=== PATIENT | female | born 1955 | race Caucasian/White ===

== ENCOUNTER 2023-06-30 05:13 | Inpatient (IN) | payer OTHER, SELFPAY ==
[2023-06-24 08:58] VITALS: BMI 44.1
[2023-06-24 09:59] LABS: Urine Albumin 1+ (Neg - Trace); Urine Bilirubin Negative (Negative); Urine Character Clear (Clear); Urine Color Yellow; Urine Glucose Negative (Negative); Urine Ketone Trace (Negative); Urine Leukocyte 2+ (Negative); Urine Nitrite Positive (Negative); Urine Occult Blood 1+ (Negative); Urine Specific Gravity 1.015 (<1.030); Urine Urobilinogen Negative (Neg - 1+)
[2023-06-24 10:00] LABS: % Basophils 0.9 % (0-2); % Eosinophils 2.5 % (0-6); % Immature Granulocytes 0.2 % (0-0.5); % Monocytes 12.9 % (1.7-9.3); % Neutrophils 57.5 % (42.2-75.2); Absolute Basophils 0.1 10^3/uL (0-0.2); Absolute Eosinophils 0.1 10^3/uL (0-0.7); Absolute Lymphocytes 1.4 10^3/uL (1.2-3.4); Absolute Monocytes 0.7 10^3/uL (0.1-0.6); Hematocrit 43.5 % (37.0-47.0); Mean Corp Hgb Conc. 34.5 g/dL (33.0-37.0); Mean Corpuscular Hgb 30.5 pg (27.0-31.0); Mean Corpuscular Volume 88.6 fL (81.0-99.0); Mean Platelet Volume 9.4 fL (7.4-10.4); Nucleated Red Blood Cells % 0 %; Platelet Count 203 10^3/uL (130-400); Red Blood Cell Count 4.91 10^6/uL (4.20-5.40); Red Cell Dist. Width 14.2 % (11.5-14.5); White Blood Cell Count 5.3 10^3/uL (4.8-10.8)
[2023-06-24 10:08] LABS: Urine Red Blood Cell 0-2 /HPF (0-2); Urine Squamous Cell >30 /LPF (Few); Urine White Cell >100 /HPF (0-5)
[2023-06-24 10:09] LABS: Urine Bacteria Moderate (Negative)
[2023-06-24 10:14] LABS: INR 1.28
[2023-06-24 10:16] LABS: APTT 52.9 Sec (23.4-35.0)
[2023-06-24 10:36] LABS: ALT (SGPT) 15 U/L (0-35); AST (SGOT) 51 U/L (14-36); Albumin 4.7 g/dl (3.5-5.0); Alkaline Phosphatase 104 U/L (38-126); Blood Urea Nitrogen 30 mg/dl (7-17); Calcium 9.8 mg/dl (8.4-10.2); Carbon Dioxide 27 mmol/L (22-30); Chloride 99 mmol/L (98-107); Direct Bilirubin 0.4 mg/dl (0.0-0.4); Estimated Creatinine Clearance 50 ml/min; Glucose 154 mg/dl (70-99); Potassium 3.5 mmol/L (3.5-5.1); Sodium 138 mmol/L (135-145); Total Bilirubin 0.8 mg/dl (0.2-1.3); Total Protein 7.6 g/dl (6.3-8.2)
--- NOTE | 2023-06-24 11:50 | CM ---
Met with Ms. Rojas in 's. She states prior to admission she resides alone in a third floor apartment with an elevator. She has a one level set-up once in the apartment. She stares prior to admission she ambulates independently in the
apartment and uses a walker in the community. She states she has hospital bed, shower bench and CPAP Machine. She states she has been in [facility] for Rehab several times, the last one this May. She has also been at [facility]. in
the past. She states if she needs SNF/Rehab. she would like to go to [facility]. She will need pre-cert with her insurance. She states she has a prescription plan and [employer] and uses [facility]. The discharge plan is to go to SNF/Rehab.
when medically stable.
We reviewed the pre-op and post-op routines. We reviewed the shower instructions. She has the soap and the written instructions. She already has the Cardiothoracic Surgery Educational Booklet. We also reviewed restrictions including sternal
precautions and driving restrictions. We also discussed a home visit by the Cardiothoracic Transitional Care Nurse. The plan is for Mitral Valve Repair on Friday June 30, 2023.
[2023-06-24 13:55] LABS: Glycohemoglobin (HgbA1c) 6.4 % (4.0-5.6)
[2023-06-30] VITALS (15 sets, daily range): BP systolic 84–157; BP diastolic 60–93; BMI 43.9
--- NOTE | 2023-06-30 00:36 | W.PN.CT ---
Assessment / Plan
-
Assessment:
-S/P Chordal sparing mitral valve replacement [27 mm bioprosthetic]/Tricuspid valve repair [28 mm band annuloplasty]/Biatrial MAZE using cryo ablation/Left atrial appendage exclusion [35 mm clip]/Intraoperative interrogation and setting of
pre-existing PPM, by Dr. Claros, 06/30/23, pod#1
-Severe mitral valve insufficiency [mixed pathology combination of type I�atrial functional, and sclerotic anterior posterior leaflets]
-Moderate TR
-Mild AI
-A-fib with sick sinus syndrome S/P Cardioversion (02/2017), PPM placement (06/2016)
-LVEF 50-55% per intraop KARL
-Recent diastolic CHF, 04/2023
-Recent PNA, 04/2023
-MRSA+ (nasal swab on 06/24/23)
-Recent E. Coli UTI (06/24/23, treated with Macrobid)
-LIZBETH (uses CPAP)
-Orthopnea
-Hyperlipidemia
-T2DM (A1C 6.4)
-Class 3 obesity (BMI 44)
-GERD
-Hx DVT/PE (2012)
-Gout
-Lymphedema
-Venous stasis
-Ambulatory dysfunction (uses walker)
-Hx endometrial ca S/P CHELITA with XRT
-S/P D&C
-S/P Carpal tunnel
-S/P B/L Cataracts
-S/P Herniorrhaphy
-S/P Tonsillectomy
-Acute postop blood loss/Anemia (stable without blood transfusion)
-Acute postop thrombocytopenia (stable without active bleed)
-Acute postop atelectasis/pleural effusion
-Acute postop hypovolemia with subsequent hypervolemia
Plan:
-No major issues overnight. Hemodynamically and neurologically intact
-Successfully extubated yesterday 06/30/23 @ 1845
-On dobutamine @ 3 mcg/kg/min, and on insulin gtt per protocol
-Last CI , 24hrs u/o mL
-Cont. current meds (ASA, Lipitor, Dobutamine, Amiodarone and Lopressor is currently on hold while on dobutamine; avoid Lasix today)
-Will likely start heparin gtt today given hx of DVT/PE, Class 3 obesity, A-fib/MAZE. Will resume Pradaxa and d/c heparin gtt likely on POD#4
-Monitor chest tube drainage: 2meds
-D/C'd A-line this AM @ 0600
-D/C swan when off dobutamine gtt
-Tele phase tomorrow once off insulin gtt
-D/C ford catheter, done @ 0600
-Maintain cordis
-No temporary PW, pt has PPM
-Encourage use of IS
-Wean off of O2 as tolerated
-OOB into chair
-Ambulate
-Repeat echo likely in 1-2 days to re-assess valves and LVEF
Subjective
-
Date of Service: June 30, 2023
Objective Data
-
Lab Results
06/24/23 09:52
PT 16.0 Sec (11.4-14.6) H 06/24/23 09:40
INR 1.28 06/24/23 09:40
APTT 52.9 Sec (23.4-35.0) H 06/24/23 09:40
--- NOTE | 2023-06-30 06:18 | W.CVOR.SURPR ---
CVOR Surgeon Immed Pre Op
-
I have examined this patient prior to performance of the scheduled procedure.
The patient's condition is unchanged from the time of the dictated/written History and
Physical and the patient is able to undergo the scheduled procedure.
Sternotomy, MV Replacement, TV Repair, LA MAZE, and HARVINDER Exclusion
Already has PPM for SSS, will have medtronic re-program after surgery
[2023-06-30] MEDS: LOPRESSOR 25 MG PO (06:19)
[2023-06-30] MEDS: PROTONIX 40 MG PO (06:19)
[2023-06-30] MEDS: MAGNESIUM OXIDE 500 MG PO (06:19)
[2023-06-30] MEDS: BACTROBAN 2% OINTMENT 1 APPLIC NASAL ×2 (06:19→20:16)
[2023-06-30 06:20] LABS: Blood Urea Nitrogen 34 mg/dl (7-17); Calcium 10.1 mg/dl (8.4-10.2); Carbon Dioxide 24 mmol/L (22-30); Chloride 102 mmol/L (98-107); Estimated Creatinine Clearance 49 ml/min; Glucose 157 mg/dl (70-99); Magnesium 2.1 mg/dl (1.6-2.3); Potassium 3.9 mmol/L (3.5-5.1); Sodium 142 mmol/L (135-145)
--- NOTE | 2023-06-30 06:20 | PTCARENOTE ---
Patient arrived to room 2263 via wheelchair with friend and security installation technician. Patient A+A+Ox3. No neurological deficits noted. Vital signs as documented. Patient confirmed 4% chlorhexidine shower last night and this morning. Patient confirmed
NPO status after midnight. Patient clipped and prepped per protocol. G wipes. Admission questions and medication reconciliation completed. Patient confirmed taking antibiotics BID x 5 days - Last dose yesterday - Patient could not remember name
of antibiotic prescribed for E.Coli in urine (Dr. Claros's office). Pre-Op medications administered. I.S. 1000 ml. Heart pillow explained to patient. Dr. Claros arrived to speak with patient. Substitute Nurse to CVOR.
[2023-06-30 07:30] LABS: ACT+ - POC 109 Seconds (82-134)
[2023-06-30 07:33] LABS: B.E. - POC 2.2 mmol/L; Glucose - POC 130 mg/dl (65-99); HCO3 - POC 27 mmol/L (21-29); Hematocrit - POC 40 % PCV (37-47); Hemodilution- POC No; Hemoglobin Calculated - POC 13.4; Ionized Calcium - POC 1.12 mmol/L (1.12-1.27); O2 Saturation %Calculated-POC 99.8 5 (92-96); PCO2 - POC 39 mmHg (35-45); PO2 - POC 228 mmHg (80-100); Potassium - POC 3.1 mmol/L (3.6-5.0); Sodium - POC 144 mmol/L (135-145); pH - POC 7.44 (7.35-7.45)
[2023-06-30 07:41] LABS: Urine Albumin Trace (Neg - Trace); Urine Bilirubin Negative (Negative); Urine Character Clear (Clear); Urine Color Yellow; Urine Glucose Negative (Negative); Urine Ketone Negative (Negative); Urine Leukocyte Negative (Negative); Urine Nitrite Negative (Negative); Urine Occult Blood Trace (Negative); Urine Specific Gravity 1.015 (<1.030); Urine Urobilinogen Negative (Neg - 1+)
[2023-06-30 10:32] LABS: ACT+ - POC 126 Seconds (82-134)
[2023-06-30 10:40] LABS: B.E. - POC 1.2 mmol/L; Glucose - POC 169 mg/dl (65-99); HCO3 - POC 25 mmol/L (21-29); Hematocrit - POC 31 % PCV (37-47); Hemodilution- POC Yes; Hemoglobin Calculated - POC 10.5; Ionized Calcium - POC 1.22 mmol/L (1.12-1.27); PCO2 - POC 35 mmHg (35-45); PO2 - POC 368 mmHg (80-100); Potassium - POC 3.6 mmol/L (3.6-5.0); Sodium - POC 143 mmol/L (135-145); pH - POC 7.46 (7.35-7.45)
--- NOTE | 2023-06-30 11:09 | W.PN.CT.SURG ---
CT Surgery Operative Note
-
CARDIAC SURGERY OPERATIVE REPORT
Preoperative Diagnosis: Mitral valve insufficiency, tricuspid valve insufficiency, paroxysmal atrial fibrillation, sick sinus syndrome status post PPM
Postoperative Diagnosis: Same
Procedure(s) Performed:
1. Standard sternotomy with aortic bicaval cannulation
2. Chordal sparing mitral valve replacement [27 mm bioprosthetic]
3. Tricuspid valve repair [28 mm band annuloplasty]
4. Biatrial MAZE using cryo ablation
5. Left atrial appendage exclusion [35 mm clip]
6. Intraoperative interrogation and setting of pre-existing PPM
7. Transesophageal echocardiography
Date of Surgery: 06/30/2023
Comorbidities:
1. Severe mitral valve insufficiency [mixed pathology combination of type I�atrial functional, and sclerotic anterior posterior leaflets]
2. Atrial fibrillation, status post sick sinus syndrome with PPM placement, on chronic anticoagulation
3. Moderate tricuspid valve insufficiency, functional�secondary to longstanding atrial fibrillation and mitral insufficiency
4. Hypertension
5. History of endometrial cancer
6. Type 2 diabetes
7. History of PE/DVT, on chronic anticoagulation
8. Morbidly obese with BMI greater than 30
9. Mobility issues requiring walker
10. Gout
11. Nonobstructive coronary artery disease
Attending Surgeon: Andrew Claros MD, MS
Assistants:Michelle Badillo PA-C (present and necessary to first aid director, retraction, suction, exposure, suture management, and wound closure under my direction)
Anesthesiology: Davion Castillo MD and Geri David CRNA
Scrub and Circulating RNs: Mishel Ramirez RN, Elva Mendoza RN
Scroll Shear Operator: Pillo Casanova CCP
Anesthesia: GETA
EBL: per perfusion records
Products: None
CPB Time: 100 minutes
Aortic Cross Clamp Time: 76 minutes
Indication(s) for Procedures: This is a 67-year-old female who was recently hospitalized for heart failure and volume overload requiring diuretics. She was also profoundly symptomatic with shortness of breath with exertion and light activity. She
is known to have longstanding atrial fibrillation and was planned for outpatient ablation but unable to attend due to logistical reasons. On my review of her imaging studies she had a combination pathology mitral valve that was likely insufficient
secondary to atrial functional pathology as well as sclerosis of the free margin of the leaflets. Due to her symptoms, atrial fibrillation, valve pathology, she was offered surgical intervention which she excepted the risks so we proceeded..
Aortic Valve Description: Mild aortic valve insufficiency, central.
Mitral Valve Description: Sclerotic anterior and posterior leaflets, with retracted posterior leaflet. The free margin of both leaflets were retracted and furled and thickened. Some of the cords to the anterior leaflet were also shortened.
Annulus was moderately dilated.
Tricuspid Valve Description: Dilated annulus, leaflets were overall normal appearing, mild degree of pannus formation on top of the pacer leads which were debrided.
Findings: Left ventricular ejection fraction preoperatively was 55 to 60% with no significant regional wall motion abnormalities. She does have a [place] pacemaker and was requiring pacing. Left ventricular ejection fraction postoperative is 55 to
60% with no new regional wall motion abnormalities. Initially upon entry to the chest she was in atrial fibrillation and was ventricularly paced. Following surgery she was able to be DDD paced using her present pacemaker. The mitral valve was
sclerotic in its appearance particularly at the free margin. The posterior leaflet was very retracted. The annulus was moderately dilated. Due to the appearance of her valve and atrial functional pathology there was a likely high failure rate of
repair. I opted to replace her valve with a 27 mm biological prosthesis secured in place with a total of 13 pledgeted 2 Ethibond sutures in an inverted fashion from LV through leaflet through annulus through sewing cuff of the valve. The anterior
leaf of the mitral valve was relocated posteriorly in order to preserve those cords. The valve was also oriented using a dental mirror and ordered to place the struts outside the LVOT. The tricuspid valve was repaired with a 28 mm band
annuloplasty secured from the mid septal portion of the leaflet around to the anterior septal commissure. Only 4 core knots were used and the rest were and tied. A total of 9 annuloplasty sutures were placed. There was only trace to mild residual
cuspid valve insufficiency. The prosthetic mitral valve was well-seated without any paravalvular leak with normal leaflet excursion. The mean gradient across the bioprosthetic mitral valve was 2 mmHg. A full biatrial maze was performed using cryo
along with left atrial appendage exclusion using a 35 mm clip. The left atrial appendage was verified to be free of any thrombus or debris preoperatively and found to be totally occlusive and flush the base postoperatively with no flow on color
Doppler. Following surgery she was DDD paced and her atrial no longer in A-fib. She did not require any significant inotropic support and was actually hypertensive during the case. She did not require any blood products. Of note, her tissue
quality was quite friable and so pledgeted repair of the antegrade puncture site was necessary.
Ablation Lines:
1. Box lesion to posterior LA wall and PVIs
2. HARVINDER lesion + HARVINDER Exclusion
3. Coronary sinus lesion
4. Posterior mitral annular line toward P2/P3
5. Tricuspid annular line
6. RAA line
7. SVC and IVC lines
Specimen(s): Anterior leaflet of the mitral valve and some cords.
Prosthesis:
1. 27mm DEAL MITRIS biological valve, SN [id number]
2. 35mm HARVINDER Clip, SN [id number]
3. 28mm Medtronic TriAD Band for TV Repair, SN [id number]
Description of Procedure: The patient was taken to the operating room. Their identity and procedure to be performed were verified and they were positioned supine on the operating table. Induction via general anesthesia with endotracheal intubation
was performed and central venous access and arterial monitoring were inserted. A preoperative transesophageal echocardiogram was performed to assess cardiac function and valvular function. The patient was then prepped and draped from chin to feet in
a sterile fashion. A preoperative time-out was performed with all members of the team present. A midline chest incision was performed along with median sternotomy. The innominate vein was isolated. Full heparinization was given (a total of 55,000
units). We created a pericardial well. The aortic cannulation site was chosen where it was soft, pliable, and free of calcium. Cannulation was performed with an arterial cannula in the ascending aorta, angled metal tip cannular in the superior vena
cava and straight bendable cannula in the inferior vena cava. The arterial cannula line had an appropriate bounce and correlating pressures. Next, a root vent/antegrade cannula was inserted into the ascending aorta. The ACT was confirmed to be over
400 and retrograde autologous priming was performed before commencing cardiopulmonary bypass. The pulmonary artery was away from the aorta to facilitate a clamp site. Sondergaard�s groove was developed after creating the oblique sinus. The
aortic cross-clamp was placed after decreasing the flow on the bypass and mean arterial pressure. A total of 1.2L initial dose of antegrade Del-Nido cardioplegia solution was given and planned for re-dosing every 75 minutes as necessary. There was
rapid electro-mechanical arrest of the heart at 300 cc of cardioplegia. The left ventricle was observed for distention on echocardiogram and manual palpation. Cold slush was placed into a lap on the RV and we systemically cooled to 34 degrees
centigrade.
With the heart arrested, it was medialized and the left atrial appendage was exposed. It was sized to a 35 mm clip which was applied flush to the base. Both the SVC and IVC were then isolated but not snared down using Vesseloops. This was to be
used later in the tricuspid portion of the case. Carbon dioxide was used to flood the field. The mitral valve was accessed via the left atrium after developing the intra-atrial groove followed by valve analysis. The cryo lesion sets were then
performed as described above. The mitral valve was replaced as described above. The left atrium was then closed with 3-0 Prolene in a running fashion from each apex. Both the SVC and IVC were then snared down by pulling on the Vesseloops.
While the heart was still arrested, I opened the right atrium vertically down towards the pantera terminalis additional ablation lines were then performed here.. Annular sutures were placed starting at the mid-portion of the septal leaflet avoiding
the AV node and working counter-clockwise toward the anteroseptal leaflet commissure. The tricuspid valve was repaired as described above and the swan was manually replaced into the RVOT. While maintaining SVC and IVC isolation, the clamp was then
removed with the patient in headdown position. The heart was allowed to reperfused as the RA suture line was closed in two layers with 5-0 prolene in a running fashion.
Additional de-airing maneuvers were performed. The left atrial suture line was hemostatic, there was mild needle hole oozing from the right atrial suture line which was gently packed. Transesophageal echocardiography revealed no evidence of
paravalvular leak and prosthetic leaflet excursion was normal with normal bi ventricular function. The left atrial appendage was verified to be totally occlusive with no residual flow verified by KARL color Doppler. The [employer] warehouse representative did
come into help set the pacemaker to a different rate of 80, at DDD setting. There remained only trace to mild residual tricuspid valve insufficiency. Once de-airing was satisfactory the left ventricular and root vents were removed. After verifying
acceptable parameters, we initiated weaning from cardiopulmonary bypass. Once we were off cardiopulmonary bypass, the venous cannulas was clamped and removed sequentially. A test dose of protamine was administered and the patient was monitored for
any adverse reaction before resuming protamine. Once half of the protamine dose was delivered, pump suckers were turned off and the systolic blood pressure was lowered for aortic decannulation. The aortic cannula was removed and purse strings were
tied down. All cannulation sites were oversewn with a 4-0 prolene. The left atrial suture line was inspected and hemostasis was confirmed. Mediastinal hemostasis was obtained. Two #24 Tremayne drains were placed within the pericardium. The sternum was
approximated with 4 #7 single and 3 #8 double stainless steel wires. Fascia was approximated with #1 vicryl suture. The subcutaneous, dermis and epidermis were closed in layers in a running fashion. The skin wound was cleansed and dressed.
All instrument, sponge, and needle counts were confirmed to be correct x 2 at the end of the operation. The patient was transferred to the cardiac intensive care unit in critical but stable condition.
I, Dr. Andrew Claros, was present, scrubbed for, and performed all critical elements of this procedure.
Andrew Claros MD, MS
Cardiothoracic Surgeon
[facility]
This dictation was created using the [employer] system. Please excuse any grammatical, typographical, or 'sound alike' errors
[2023-06-30 11:21] LABS: Glucose - Point of Care 205 mg/dl (70-99)
[2023-06-30 11:31] LABS: B.E. 2.6 mmol/L; HCO3 26.2 mmol/L (21-28); Ionized Calcium 1.22 mMOL/L (1.15-1.33); PCO2 36 mmHg (32-35); PO2 124 mmHg (83-108); Potassium 3.9 mMOL/L (3.5-5.1); Sodium 137 mMOL/L (136-145); pH 7.47 (7.35-7.45)
[2023-06-30 11:32] LABS: Hematocrit 31.6 % (37.0-47.0); Hemoglobin 11.2 g/dL (12.0-16.0); Platelet Count 120 10^3/uL (130-400)
--- NOTE | 2023-06-30 11:36 | CM ---
Chart reviewed. Patient is in the OR today. Patient is independent of ADLS, lives in a 3rd floor apartment, elevator access with 1 MELA, ambulates with a rolling walker. Patient also has a hospital bed, shower bench, and CPAP. Patient has been
to SNF in the past at [facility]. Plan is for the patient to return home with CT Transitional RN vs SNF. CM to follow
--- NOTE | 2023-06-30 11:39 | PTCARENOTE ---
Received pt from CVOR at 1115; pt intubated and sedated; AV 100% paced, pt own PPM; RIJ Cordis, [place] floated to 40, Left A-line and PIV x1 all lines leveled and zeroed; Insulin, Precedex and Cardene infusing see flow sheet for details; Lungs
diminished; CT x2 to -20 wall suction, no air leak and no crepitus noted; ET Tube size 8 and 23 @ lip; SIMV 50%/450/5/14; hypoactive round obese abdomen; Pena Catheter draining clear yellow urine; palpable pulses; no edema noted; surgical sites
C/D/I; see nursing documentation for further details.
CI 1.25
CO 2.52
SVR 2253
[2023-06-30 11:41] LABS: INR 1.55; PT 18.5 Sec (11.4-14.6)
[2023-06-30 11:42] LABS: APTT 36.2 Sec (23.4-35.0)
[2023-06-30] MEDS: KCL 50 IV ×2 (11:54→12:56)
[2023-06-30] MEDS: NSS 500 IV (11:55)
[2023-06-30] MEDS: ANCEF 10 IV ×2 (11:55→11:56)
[2023-06-30] MEDS: CLARITIN PO (11:56)
[2023-06-30] MEDS: NEURONTIN PO ×3 (11:56→22:41)
[2023-06-30] MEDS: VANCOCIN 300 ML IV (11:56)
[2023-06-30] MEDS: THERAGRAN PO (11:56)
[2023-06-30] MEDS: VANCOCIN 300 MG IV (11:56)
[2023-06-30] MEDS: NOVOLOG FLEXPEN SC ×3 (11:56→16:47)
[2023-06-30] MEDS: VITAMIN B-12 PO (11:57)
[2023-06-30] MEDS: VITAMIN C PO (11:57)
[2023-06-30 12:14] LABS: Glucose - Point of Care 250 mg/dl (70-99)
--- NOTE | 2023-06-30 12:24 | PTCARENOTE ---
Low Urine output 20 mls per past 1 hours; CV CHUTE MAN at bedside, Dobutamine started at 2 mcg/kg/min.
--- NOTE | 2023-06-30 12:25 | W.PN.UPDATE ---
Update Note
Progress Note Update
67 year old female electively admitted 06/30/23 for Mitral and tricuspid valve surgery due to moderate TR and moderate to severe MR.
IV fluids: 600
Crystalloid:� 1300
U.O.:� 300
UF:� 600
Blood:� none
Wires:� none
Inotropes:� Dobutamine >off on arrival d/t hypertension
Pressors:� none
Sedatives:� Precedex
�
NEURO: sedated on Precedex, pupils +2mm B/L
RESP: #8OT @24cm> 500/60%/29/06. Lungs clear B/L. 2 mediastinal (10cc on arrival) chest tubes to -20cm suction. Sanguineous drainage
CV: RRR +S1, S2, no S3, no�rub, no murmur. Dermabond to median sternotomy. RIJ w/Sibley locked @ 40cm. PA /; CVP 13; CI 1.37
ABD: obese w/pannus, round, soft, no BS
EXT: no edema, +1/4 DP pulses B/L, B/L tibial hemosiderin staining, no femoral bruit, left radial A-line intact
: Pena with dark yellow urine
�
A/P: POD #0 s/p Chordal sparing mitral valve replacement #27 mm bioprosthetic; tricuspid valve repair #28 mm band; Biatrial MAZE using cryo ablation; Left atrial appendage exclusion #35 mm clip
KARL: EF�50-55%. MV mean 2mmHg, mild TR
- wean and extubate
- Vanco added to bonnie-op antibiotics d/t +MRSA screen
- will need instruction regarding antibiotic prophylaxis for dental and invasive procedures
- will need pre- discharge TTE
# Hx AF with MDT PPM 2016
-currently AV pacing/sinus s/p MAZE
- Amio prophylaxis
- on Sotolol 120mg BID, Diltiazen 300mg daily, and Pradaxa 150mg BID @ home
�
# acute surgical blood loss anemia-expected
- trend CBC
�
# Morbid obesity (BMI 43.9)
- diabetic calorie restricted diet
# Ambulatory Dysfunction
- limited mobility-uses walker for distances
# T2DM (A1C 6.4)
- insulin infusion x 48h
- resume Prandin 1mg TID when tolertaing solids
�
# Hyperlipidemia
- resume� Simvastatin 5mg daily
# pre admission E. Coli UTI
- treated with Macrobid
--- NOTE | 2023-06-30 12:30 | CON.CAR ---
Addendum entered and electronically signed by Rolando Mosley MD 06/30/23 13:57:
I saw and examined the patient.
The [facility] note was reviewed and I agree with the note.
Comment:
GEN: No distress, intubated/sedated
HEENT: supple, anicteric, mmm, ET tube
LUNGS: CTA, no wheezes/rales
CV: Reg, S1/S2, no murmur
ABD: soft, BS+, NT/ND
EXT: No edema
NEURO: Gross non-focal
SKIN: sterntomy
Plan:
Overall doing well status post bioprosthetic mitral valve replacement/tricuspid valve repair, maze and left atrial appendage clip.
Continue supportive care with dobutamine as needed.
Remains AV paced.
Hg 11.2, Creat 1.1
Wean to extubate. Continue postoperative care.
Original Note:
Consultation
Consultation Request
Date/Time Consultation Performed: 06/30/23
Requesting Provider: Dr. Claros
Performing Provider: Amy Cunningham PA-C for Dr. Mosley
Reason for Consultation: post MVR/TV repair
Medical History
-
Chief Complaint: mod to severe MR
History of Present Illness:
Patient is a 67 yo F [address] by Dr[address] Peters of [facility]. She has history of SSS s/p Medtronic DC PPM 2016, persistent afib on chronic sotalol and pradaxa therapy, chronic diastolic CHF, HTN, HLD, NIDDM, NSVT, obesity, chronic venous insufficiency/chronic
lymphedema. We had conducted several telehealth visits to discuss PVI for afib in 2019 but this was never pursued further. She had admission to [facility] 04/2023 for CHF exacerbation and was noted to have mod to severe MR and set up for OP CT surgery
evaluation. s/p biopros MVR, TV repair, MAZE, and HARVINDER clip 06/29. Cardiology consulted for postop follow up.
PMH:
mod to severe MR
admission to [facility] 04/2023 for CHF exacerbation
SSS s/p Medtronic DC PPM 2016
persistent afib on chronic sotalol and pradaxa therapy
chronic diastolic CHF
HTN
HLD
NIDDM
NSVT
obesity
chronic venous insufficiency/chronic lymphedema
Past Medical History
Past Medical History: Other (in HPI)
Social History
Tobacco: Non-Smoker
Employment: Retired
Family History
Family History: CAD
Allergies / Home Medications
Allergy/AdvReac Type Severity Reaction Status Date / Time
oxytetracycline Allergy Hives Verified 06/23/23 15:29
[From Terramycin]
�Medication �Instructions �Recorded �Confirmed �Type
acetaminophen 500 mg tablet 1,000 mg PO Q6H PRN pain 06/23/23 06/30/23 History
(Acetaminophen Extra Strength)
ascorbic acid (vitamin C) 500 mg 500 mg PO DAILY Supplement 06/23/23 06/30/23 History
tablet (Vitamin C)
cinnamon bark 500 mg capsule 500 mg PO BID Supplement 06/23/23 06/30/23 History
(Cinnamon)
colchicine 0.6 mg tablet 0.6 mg PO .EVERY OTHER DAY PRN gout 06/23/23 06/30/23 History
cyanocobalamin (vitamin B-12) 1,000 mcg PO DAILY Supplement 06/23/23 06/30/23 History
1,000 mcg tablet
dabigatran etexilate 150 mg 150 mg PO BID Blood Clot 06/23/23 06/30/23 History
capsule (Pradaxa) Prevention/Tx
diltiazem HCl 300 mg 300 mg PO DAILY Heart 06/23/23 06/30/23 History
tablet,extended release 24 hr Disease/Condition
furosemide 40 mg tablet 40 mg PO BID Fluid 06/23/23 06/30/23 History
Retention/Swelling
glucosamine sulf dipot 1 cap PO BID Supplement 06/23/23 06/30/23 History
chlr,msm,chond 550 mg-C 30 mg-pavel
1 mg capsule (Glucosamine
Chondroitin)
loratadine 10 mg tablet 10 mg PO DAILY Allergies 06/23/23 06/30/23 History
melatonin 3 mg tablet 3 mg PO HS PRN sleep 06/23/23 06/30/23 History
multivitamin 1 tab PO DAILY Supplement 06/23/23 06/30/23 History
pantoprazole 40 mg tablet,delayed 40 mg PO DAILY Gastrointestinal 06/23/23 06/30/23 History
release Issue
potassium chloride 20 mEq oral 20 meq PO BID ELEV 06/23/23 06/30/23 History
packet
repaglinide 1 mg tablet 1 mg PO TID 06/23/23 06/30/23 History
simvastatin 5 mg tablet 5 mg PO .MOWEFR High Cholesterol 06/23/23 06/30/23 History
sotalol 120 mg tablet 120 mg PO Q12H Heart 06/23/23 06/30/23 History
Disease/Condition
Review of Systems
-
Unable to obtain full review of systems at this time due to: Patient Intubation
Physical Exam
Vital Signs
Temp Pulse Resp BP Pulse Ox
97.0 F 80 14 95/67 98
06/30/23 12:05 06/30/23 12:03 06/30/23 12:05 06/30/23 12:03 06/30/23 12:29
Physical Exam
General: No Apparent Distress and Intubated
HEENT: Normocephalic, Anicteric and Moist Mucous Membranes
Respiratory: Clear and Non Labored Respirations
Cardiac: S1/S2 and Regular Rhythm
Musculoskeletal: No Clubbing, No Cyanosis and Edema (1+ of B/L LE with chronic discoloration consistent with known venous insufficiency)
Skin: Warm, Dry and Other (sternotomy incision c/d/i)
Neuro: Sedated
Impression / Plan
-
Primary Production Sorter: Dr. Hiren Peters of [facility]
Assessment:
symptomatic mod to severe MR s/p biopros MVR, TV repair, MAZE, HARVINDER clip 06/30/23
admission to [facility] 04/2023 for CHF exacerbation
SSS s/p Medtronic DC PPM 2016
persistent afib on chronic sotalol and pradaxa therapy
chronic diastolic CHF
HTN
HLD
NIDDM
NSVT
obesity
chronic venous insufficiency/chronic lymphedema
TTE 04/27/2023 at [facility]: EF 55 to 60%, normal RV function, moderate to severe eccentric MS
KARL 04/29/23 at [facility]: Moderately severe dilated left atrium, moderately dilated right atrium, moderate to severe eccentric MS with moderate TI, EF felt to be mildly reduced visually
Plan:
-s/p biopros MVR, TV repair, MAZE, HARVINDER clip 06/30/23
-remains intubated, sedated
-dobut stopped prior to leaving OR, then hypertensive, started on cardene, now mildly hypotensive with CI 1.37. started back on dobut @2.
-EKG AV paced rhythm. she has a Medtronic DC PPM which was interrogated intraop. preop was on sotalol 120mg Q12H
-intraop KARL with EF 50-55%, no paravalvular leak noted, mean gradient 2mmHg, TR improved to mild, HARVINDER without evidence of flow, rhythm paced
-follow hgb/plts post op, 11.2/120K respectively. was on pradaxa preop
-continue post op care
-d/w nursing
Data Reviewed
-
EKG: Tracing Personally Visualized and interpreted
Medical Tests (Nuc Med, Echo etc): Report Reviewed by me
Labs: Labs Reviewed by me
Old Records: Reviewed
[2023-06-30 13:02] LABS: Blood Urea Nitrogen 30 mg/dl (7-17); Estimated Creatinine Clearance 54 ml/min; Glucose 236 mg/dl (70-99)
[2023-06-30 13:02] LABS: Glucose - Point of Care 242 mg/dl (70-99)
[2023-06-30] MEDS: TYLENOL PO ×2 (13:46→22:41)
[2023-06-30 14:02] LABS: Glucose - Point of Care 200 mg/dl (70-99)
--- NOTE | 2023-06-30 14:19 | PTCARENOTE ---
CI 1.20, CO 2.41, and SVR 1923; updated CV OPEN DIE INSPECTOR mixed venous sent.
[2023-06-30] MEDS: OFIRMEV 100 IV (14:53)
--- NOTE | 2023-06-30 14:56 | PTCARENOTE ---
Mixed venous resulted 57; CV POSTMASTER updated and in room with pt; CV POSTMASTER advanced [place] Lakhwinder to 50; new CI 1.26, CO 2.54 and SVR 2046; Dobutamine increased to 3 mcg/kg/min.
[2023-06-30 15:01] LABS: Glucose - Point of Care 191 mg/dl (70-99)
[2023-06-30 15:17] LABS: Hematocrit 34.4 % (37.0-47.0); Hemoglobin 11.7 g/dL (12.0-16.0); Platelet Count 134 10^3/uL (130-400)
--- NOTE | 2023-06-30 15:30 | PTCARENOTE ---
Frequent PVCs on monitor, CV HISTORIAN DRAMATIC ARTS at bedside and Dobutamine decreased to 2 mcg/kg/min.
--- NOTE | 2023-06-30 15:35 | PTCARENOTE ---
Addendum entered by Eri Gabriel RN 06/30/23 15:49:
Respiratory at bedside and pt placed back on SIMV.
Original Note:
Respiratory at bedside and pt placed on CPAP.
[2023-06-30 15:50] LABS: Blood Urea Nitrogen 30 mg/dl (7-17); Estimated Creatinine Clearance 54 ml/min; Glucose 188 mg/dl (70-99); Magnesium 3.4 mg/dl (1.6-2.3)
[2023-06-30 16:03] LABS: Glucose - Point of Care 135 mg/dl (70-99)
[2023-06-30] MEDS: PACERONE PO (16:47)
--- NOTE | 2023-06-30 16:57 | CON.INTV ---
Consultation
Consultation Request
Date/Time Consultation Requested: 06-30-23
Date/Time Consultation Performed: 06-30-23
Requesting Provider: Dr Claros
Performing Provider: Dr Carnes
Reason for Consultation: s/p MV replacement
Medical History
-
Chief Complaint: s/p MV replacement
History of Present Illness:
Mrs Tracy Rojas is a 67/W adm for scheduled CTSx. Seen by Dr Claros at office, referred for evaluation of MR, prepared for MV replacement
Seen at [facility], received MV replacement 06-29. Recovering from anesthesia. Seen in presence of GRIFFIN Hwang
Past Medical History
Past Medical History: CHF, HTN, Hypercholesterolemia, NIDDM and Other (NSVT, AFib. PPM. Moderate to severe MR)
Past Surgical History: Gynecological (D&C. Hysterectomy)
Social History
Tobacco: Non-smoker
Alcohol: None
Drug: None
Personal: Single
Living: Alone
Employment: Retired
Family History
Family History: CAD and Hypertension
Allergies / Home Medications
Allergies
Allergy/AdvReac Type Severity Reaction Status Date / Time
oxytetracycline Allergy Hives Verified 06/23/23 15:29
[From Terramycin]
Home Medications
�Medication �Instructions �Recorded �Confirmed �Last Taken �Type
acetaminophen 500 mg tablet 1,000 mg PO Q6H PRN pain 06/23/23 06/30/23 06/29/23 21:00 History
(Acetaminophen Extra Strength) 1000 mg
ascorbic acid (vitamin C) 500 mg 500 mg PO DAILY Supplement 06/23/23 06/30/23 06/22/23 09:00 History
tablet (Vitamin C) 500 mg
cinnamon bark 500 mg capsule 500 mg PO BID Supplement 06/23/23 06/30/23 06/22/23 09:00 History
(Cinnamon) 500 mg
colchicine 0.6 mg tablet 0.6 mg PO .EVERY OTHER DAY PRN gout 06/23/23 06/30/2324 09:00 History
0.6 mg
cyanocobalamin (vitamin B-12) 1,000 mcg PO DAILY Supplement 06/23/23 06/30/23 06/22/23 09:00 History
1,000 mcg tablet 1000 mcq
dabigatran etexilate 150 mg 150 mg PO BID Blood Clot 06/23/23 06/30/23 06/27/23 20:00 History
capsule (Pradaxa) Prevention/Tx 150 mg
diltiazem HCl 300 mg 300 mg PO DAILY Heart 06/23/23 06/30/23 06/29/23 09:00 History
tablet,extended release 24 hr Disease/Condition 300 mg
furosemide 40 mg tablet 40 mg PO BID Fluid 06/23/23 06/30/23 06/29/23 19:00 History
Retention/Swelling 40 mg
glucosamine sulf dipot 1 cap PO BID Supplement 06/23/23 06/30/23 06/22/23 09:00 History
chlr,msm,chond 550 mg-C 30 mg-pavel 1 cap
1 mg capsule (Glucosamine
Chondroitin)
loratadine 10 mg tablet 10 mg PO DAILY Allergies 06/23/23 06/30/23 06/27/23 09:00 History
10 mg
melatonin 3 mg tablet 3 mg PO HS PRN sleep 06/23/23 06/30/23 05/18/23 23:00 History
3 mg
multivitamin 1 tab PO DAILY Supplement 06/23/23 06/30/23 06/22/23 09:00 History
1 Tab
pantoprazole 40 mg tablet,delayed 40 mg PO DAILY Gastrointestinal 06/23/23 06/30/23 06/29/23 07:00 History
release Issue 40 mg
potassium chloride 20 mEq oral 20 meq PO BID ELEV 06/23/23 06/30/23 06/29/23 19:00 History
packet 20 mEq
repaglinide 1 mg tablet 1 mg PO TID 06/23/23 06/30/23 06/29/23 19:00 History
1 mg
simvastatin 5 mg tablet 5 mg PO .MOWEFR High Cholesterol 06/23/23 06/30/23 06/29/23 21:00 History
5 mg
sotalol 120 mg tablet 120 mg PO Q12H Heart 06/23/23 06/30/23 06/29/23 21:00 History
Disease/Condition 120 mg
Review of Systems
-
Unable to Obtain full review of systems at this time due to: Patient Intubation
Vitals / Labs / Diagnostic Testing
Vital Signs
Temp Pulse Resp BP Pulse Ox
98.3 F 80 15 92/61 100
06/30/23 15:59 06/30/23 16:00 06/30/23 16:00 06/30/23 16:00 06/30/23 16:00
Lab Data
06/30/23 15:09
06/30/23 12:11
Laboratory Results
06/30/23
11:21
PT 18.5 H
INR 1.55
APTT 36.2 H
pH 7.47 H
pCO2 36 H
pO2 124 H
HCO3 26.2
O2 Delivery Level
Diagnostic Testing:
Physical Exam
-
HEENT: Normocephalic and Moist Mucous Membranes
Cardiovascular: Regular Rhythm, Peripheral Edema (OCTAVIANO) and Calf Tenderness (n)
Respiratory: Clear, Non-Labored Respirations and Other (chest/med t's)
GI: Soft, Non Distended and Non Tender
Neurology: Other (sedated)
Skin: Warm
General: Respiratory Distress
Assessment
-
Assessment:
Mrs Tracy Rojas is a 67/W adm for scheduled CTSx. Seen by Dr Claros at office, referred for evaluation of MR, prepared for MV replacement
Impression:
Severe MR, s/p MV replacement 06-29
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
HTN
HLD
DM
PE/DVT 2012
Endometrial cancer s/p hysterectomy
AFib, on dabigatran
PPM
OCTAVIANO edema
Nonsmoker
Plan:
Ventilator settings reviewed
SIMV: [id number] (POx 100%)
FiO2 will be weaned
Minute ventilation will be adjusted
Arterial blood gases will be monitored
Spontaneous breathing trial will be attempted with hopeful extubation after anesthesia/sedation wear off
Pulmonary artery catheter parameters will be followed
Pressors/antihypertensive/inotropes/diuretics will be provided as needed
Monitor chest tube output
Monitor hemoglobin
Monitor platelet count and coags
Transfuse blood product if needed
CT surgery following chest tubes
Monitor blood sugar
Insulin drip per protocol
Aspiration precautions
VAP prevention protocol
DVT prophylaxis
Early nutrition
Early mobilization
D/w CTSx GRIFFIN Hwang
Critical care time: 35 min
[2023-06-30 17:08] LABS: Glucose - Point of Care 109 mg/dl (70-99)
--- NOTE | 2023-06-30 17:19 | PTCARENOTE ---
CI 1.30 CO 2.60 and SVR 1907; updated CV PASTING INSPECTOR mixed venous sent.
[2023-06-30 17:23] LABS: Mixed Venous O2 Saturation 54.9 %
[2023-06-30] MEDS: ANCEF 5 IV (17:24)
--- NOTE | 2023-06-30 17:53 | PTCARENOTE ---
Low urine output; updated CV DATA CENTER CONSULTANT increased Dobutamine to 3 mcg/kg/min.
[2023-06-30] MEDS: ZOFRAN 4 MG IV (18:04)
[2023-06-30 18:06] LABS: Glucose - Point of Care 109 mg/dl (70-99)
[2023-06-30 18:37] LABS: B.E. 1.9 mmol/L; HCO3 26.6 mmol/L (21-28); Ionized Calcium 1.23 mMOL/L (1.15-1.33); O2 Saturation % 99.7 % (94-98); PCO2 41 mmHg (32-35); PO2 165 mmHg (83-108); Potassium 4.1 mMOL/L (3.5-5.1); Sodium 138 mMOL/L (136-145); pH 7.42 (7.35-7.45)
--- NOTE | 2023-06-30 18:44 | PTCARENOTE ---
ABGs reviewed, respiratory at bedside and pt extubated.
[2023-06-30 19:08] LABS: Glucose - Point of Care 103 mg/dl (70-99)
[2023-06-30] MEDS: LR 500 IV (19:42)
[2023-06-30] MEDS: SENOKOT-S PO (19:42)
--- NOTE | 2023-06-30 19:53 | PTCARENOTE ---
assumed care of pt from previous shift RN, pt is AAOX3, lethargic/easy to arouse. AV paced on tele via PPM, + peripheral pulses, +1 edema to bilateral lower extremities. Left radial tawnya leveled and zeroed, BP 130/63 (83), Right IJ cordis w swan
floated to 50, PAP 28/15, CVP 10, CI 1.43/CO 2.87. Lungs diminished, pox 99% on 6L NC. Coughing and deep breathing encouraged. Mediastinal CT x2 w minimal amount of red drainage, Post op incision intact, Hypoactive BS, pt denies nausea. Pena
catheter w scant amount of lokesh urine. Pt denies pain at present. Plan of care reviewed w pt and questions encouraged.
DRIPS:
Dobutamine 3mcg/kg/min
Insulin titrated per glycemic protocol
LR bolus infusing at 250ml/ hr x 2 hours.
--- NOTE | 2023-06-30 20:10 | PTCARENOTE ---
CV PA made aware of urine OP 5ml. Fluid bolus infusing.
[2023-06-30] MEDS: VANCOCIN 200 IV (20:15)
[2023-06-30] MEDS: LOW STRENGTH ASPIRIN 81 MG PO (20:16)
[2023-06-30 21:04] LABS: Glucose - Point of Care 146 mg/dl (70-99)
[2023-06-30 23:08] LABS: Glucose - Point of Care 98 mg/dl (70-99)
[2023-06-30] MEDS: TYLENOL 1000 MG PO (23:42)
[2023-07-01] VITALS (28 sets, daily range): BP systolic 94–167; BP diastolic 59–109; PULSE 80; O2SAT 98; BMI 45.0
[2023-07-01 00:20] LABS: Mixed Venous O2 Saturation 70.5 %
--- NOTE | 2023-07-01 00:20 | PTCARENOTE ---
CT PA made aware of CI 1.72. Instructed to increase dobutamine from 3-3.5mcg/kg/min and administer 500ml LR bolus (250ml/hr x2 hrs).
Routine AM labs drawn and sent as ordered.
[2023-07-01] MEDS: LR 500 IV (00:29)
[2023-07-01 00:34] LABS: Blood Urea Nitrogen 30 mg/dl (7-17); Calcium 8.9 mg/dl (8.4-10.2); Carbon Dioxide 26 mmol/L (22-30); Chloride 110 mmol/L (98-107); Estimated Creatinine Clearance 46 ml/min; Glucose 100 mg/dl (70-99); Sodium 142 mmol/L (135-145); eGFR 44.51
[2023-07-01 00:40] LABS: Hematocrit 32.1 % (37.0-47.0); Hemoglobin 10.9 g/dL (12.0-16.0); Mean Corpuscular Hgb 30.9 pg (27.0-31.0); Mean Corpuscular Volume 90.9 fL (81.0-99.0); Platelet Count 131 10^3/uL (130-400); Red Blood Cell Count 3.53 10^6/uL (4.20-5.40); Red Cell Dist. Width 14.8 % (11.5-14.5); White Blood Cell Count 12.9 10^3/uL (4.8-10.8)
[2023-07-01] MEDS: ANCEF 5 IV ×2 (03:07→09:17)
[2023-07-01 03:08] LABS: Glucose - Point of Care 114 mg/dl (70-99)
--- NOTE | 2023-07-01 03:12 | PTCARENOTE ---
pt vomited small amount of bile. CHG bath and mouth care completed. Linens changed. Daily wt and EKG completed.
--- NOTE | 2023-07-01 04:09 | W.PN.CT ---
Today's Communication / Plan
-
Plan:
-No major issues overnight. Hemodynamically and neurologically intact
-Successfully extubated yesterday 06/30/23 @ 1845
-On dobutamine @ 3.5 mcg/kg/min, and on insulin gtt per protocol
-Last CI: 2.04, mixed venous O2: 70.5%, 24hrs u/o 765 mL
-Cont. current meds (ASA, Lipitor, Dobutamine, Amiodarone and Lopressor is currently on hold while on dobutamine; avoid Lasix today)
-Will likely start heparin gtt today given hx of DVT/PE, Class 3 obesity, A-fib/MAZE. Will resume Pradaxa and d/c heparin gtt likely on POD#4
-Monitor chest tube drainage: 2meds 185/345
-D/C'd A-line this AM @ 0430 (positional)
-D/C swan when off dobutamine gtt
-Tele phase tomorrow once off insulin gtt
-D/C ford catheter later today vs tomorrow, monitor u/o
-Maintain cordis
-No temporary PW, pt has PPM, currently A/V paced @ 80 bpm
-Encourage use of IS
-Wean off of O2 as tolerated
-OOB into chair
-Ambulate
-Will Repeat echo to re-assess valves and LVEF before d/c home
Assessment / Plan
-
Assessment:
-S/P Chordal sparing mitral valve replacement [27 mm bioprosthetic]/Tricuspid valve repair [28 mm band annuloplasty]/Biatrial MAZE using cryo ablation/Left atrial appendage exclusion [35 mm clip]/Intraoperative interrogation and setting of
pre-existing PPM, by Dr. Claros, 06/30/23, pod#1
-Severe mitral valve insufficiency [mixed pathology combination of type I�atrial functional, and sclerotic anterior posterior leaflets]
-Moderate TR
-Mild AI
-A-fib with sick sinus syndrome S/P Cardioversion (02/2017), PPM placement (06/2016)
-LVEF 50-55% per intraop KARL
-Recent diastolic CHF, 04/2023
-Recent PNA, 04/2023
-MRSA+ (nasal swab on 06/24/23)
-Recent E. Coli UTI (06/24/23, treated with Macrobid)
-LIZBETH (uses CPAP)
-Orthopnea
-Hyperlipidemia
-T2DM (A1C 6.4)
-Class 3 obesity (BMI 44)
-GERD
-Hx DVT/PE (2012)
-Gout
-Lymphedema
-Venous stasis
-Ambulatory dysfunction (uses walker)
-Hx endometrial ca S/P CHELITA with XRT
-S/P D&C
-S/P Carpal tunnel
-S/P B/L Cataracts
-S/P Herniorrhaphy
-S/P Tonsillectomy
-Acute postop blood loss/Anemia (stable without blood transfusion)
-Acute postop thrombocytopenia (stable without active bleed)
-Acute postop atelectasis/pleural effusion
-Acute postop hypovolemia with subsequent hypervolemia
-Acute postop cardiogenic shock, requiring dobutamine gtt
Discussed patient care with: Cardiology, Nursing, Respiratory Therapy, Pharmacy and Care Team
Subjective
Procedure
-S/P Chordal sparing mitral valve replacement [27 mm bioprosthetic]/Tricuspid valve repair [28 mm band annuloplasty]/Biatrial MAZE using cryo ablation/Left atrial appendage exclusion [35 mm clip]/Intraoperative interrogation and setting of
pre-existing PPM, by Dr. Claros, 06/30/23, pod#1
-
Date of Service: July 01, 2023
Pt c/o incisional pain, otherwise feels well
Objective Data
-
Lab Results
07/01/23 00:13
07/01/23 00:13
PT 15.0 Sec (11.4-14.6) H 07/01/23 00:13
INR 1.20 07/01/23 00:13
APTT 36.2 Sec (23.4-35.0) H 06/30/23 11:21
Vital Signs
Vital Signs
Temp Pulse Resp BP Pulse Ox
97 F 80 14 110/70 100
07/01/23 03:00 07/01/23 03:00 07/01/23 03:00 07/01/23 03:00 07/01/23 03:00
CT Intake/Output/Weight
06/30/23 06/30/23 07/01/23
06:59 18:59 06:59
Intake Total 595.7 / 2317.9 1722.2 / 2317.9
Output Total 535 / 990 455 / 990
Balance 60.7 / 1327.9 1267.2 / 1327.9
SaO2: 98 (4L)
Physical Exam
-
General: Awake, Oriented and AOx3
Cardiovascular: Regular rate & rhythm, No Murmurs, No Rub and No Gallop
Respiratory: Decreased Breath Sounds
Sternum: Stable
Incision: Clean, Dry, Intact and Dressing Intact
Extremities: Edema +2
Data Reviewed
-
Lab Results: Results Reviewed
Medications: Active Meds Reviewed
Chest X-Ray: Report Reviewed and Image Reviewed
ECG: Report Reviewed and Image Reviewed
--- NOTE | 2023-07-01 05:00 | PTCARENOTE ---
Patti removed as instructed by CVPA. Manav to remain.
[2023-07-01 05:28] LABS: Glucose - Point of Care 109 mg/dl (70-99)
[2023-07-01] MEDS: TYLENOL PO ×2 (05:42→15:22)
--- NOTE | 2023-07-01 06:43 | DOWNTIME ---
There was a [employer]anc[employer] Downtime on 06/30/2023 from 0100 to 07/01/2023 at 0300. Downtime documentation of patient's care, including medication administrations, has been reconciled in the electronic record per guidelines. Refer to the
patient's paper chart under the miscellaneous tab to see printed paper medication records and downtime forms.
[2023-07-01 07:05] LABS: Glucose - Point of Care 95 mg/dl (70-99)
--- NOTE | 2023-07-01 07:20 | W.PN.INTV ---
Documented by User: Suzanne Hagan MD, Resident 07/01/23 11:19
Today's Communication / Plan
Recommendations
continue post op care
Reconsult prn
Assessment
-
Assessment:
Mrs Tracy Rojas is a 67/W adm for scheduled CTSx. Seen by Dr Claros at office, referred for evaluation of MR, prepared for MV replacement. Operated 06-29
Impression:
Severe MR, s/p MV replacement 06-29
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
HTN
HLD
DM
PE/DVT 2012
Endometrial cancer s/p hysterectomy
AFib, on dabigatran
PPM
OCTAVIANO edema
Nonsmoker
Plan:
Postop CXR with no infiltrates
Post extub CXR today with no infiltrates
Pulmonary artery catheter parameters will be followed
Pressors/antihypertensive/inotropes/diuretics will be provided as needed
Monitor chest tube output
Monitor hemoglobin
Monitor platelet count and coags
Transfuse blood product if needed
CT surgery following chest tubes
Monitor blood sugar
Insulin drip per protocol
Aspiration precautions
VAP prevention protocol
DVT prophylaxis
Early nutrition
Early mobilization
Subjective Dataa
Subjective Data
Date of Service:
Date of Service: July 01, 2023
Chief Complaint: Economic Specialist Follow Up
Subjective:
No major events overnight. Extubated successfully yesterday evening. Comfortable in No acute respiratory distress. patient denies shortness of breath, denies chest pain.
Review of Systems
General: Fever (n) and Chills (n)
Cardiopulmonary: Dyspnea (n), Cough (n), Wheezing (n) and Edema (n)
GI: Abdominal Pain (n)
Neuro: Headache (n) and Weakness
Objective Data
Data Reviewed
Vital Signs / I&O / Oxygen:
Vital Signs
Temp Pulse Resp BP Pulse Ox
97.6 F 80 16 136/74 98
07/01/23 07:03 07/01/23 07:00 07/01/23 07:03 07/01/23 07:00 07/01/23 07:03
Intake and Output
06/30/23 07/01/23 07/02/23
06:59 06:59 06:59
Intake Total 2470.9 / 2470.9 34 / 34
Output Total 1130 / 1130 60 / 60
Balance 1340.9 / 1340.9 -26 / -26
SaO2 [CPAP] 99
SaO2 [SIMV] 100
SaO2 98
Nasal Cannula flow liters per 2
minute
Physical Exam
General: Comfortable
HEENT: Moist Mucous Membranes
Cardiovascular: Regular Rhythm, Murmur (n), Rub (n), JVD (n), Peripheral Edema (n) and Calf Tenderness (n)
Respiratory: Wheeze (n) and Crackles (n)
GI: Non Distended and Non Tender
Neurology: Awake, Alert, Oriented and AO x 3
Skin: Warm
Labs/Micro/Reports
Lab Data
07/01/23 00:13
07/01/23 00:13
Laboratory Results
06/30/23 06/30/23 07/01/23
11:21 18:33 00:13
PT 18.5 H 15.0 H
INR 1.55 1.20
APTT 36.2 H
pH 7.47 H 7.42
pCO2 36 H 41 H
pO2 124 H 165 H
HCO3 26.2 26.6
O2 Delivery Level

Documented by User: Mike Carnes MD 07/01/23 11:47
Assessment
-
Assessment:
Mrs Tracy Rojas is a 67/W adm for scheduled CTSx. Seen by Dr Claros at office, referred for evaluation of MR, prepared for MV replacement. Operated 06-29
Impression:
Severe MR, s/p MV replacement 06-29
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
HTN
HLD
DM
PE/DVT 2012
Endometrial cancer s/p hysterectomy
AFib, on dabigatran
PPM
OCTAVIANO edema
Nonsmoker
Plan:
Postop CXR with no infiltrates
Post extub CXR today with no infiltrates. L sided PM. [facility]
Pulmonary artery catheter parameters will be followed
Pressors/antihypertensive/inotropes/diuretics will be provided as needed
Monitor chest tube output
Monitor hemoglobin
Monitor platelet count and coags
Transfuse blood product if needed
CT surgery following chest tubes
Monitor blood sugar
Insulin drip per protocol
Aspiration precautions
DVT prophylaxis
Early nutrition
Early mobilization
Reconsult prn
ATTENDING PHYSICIAN ATTESTATION:
(Follow-up Visit:)
I personally saw and evaluated the patient along with the Resident Dr El.
Discussed with Resident and discussed in rounds with MDT.
I agree with Resident�s findings and plan as documented in the resident�s note, which was edited by myself.
Objective Data
Physical Exam
Respiratory: Non-Labored Respirations, Stridor (n) and Chest Tube
Neurology: No Motor Deficits
--- NOTE | 2023-07-01 07:31 | PTCARENOTE ---
Assumed care of patient from warehouse shift supervisor RN. AAO x 3 , but drowsy. AV paced on monitor. RT IJ cordis with swan floated to 50 cm. 2 L NC with pulse ox of 98%. Preforming IS to 500 with encouragement. Chest tubes x 2 to -20 cm suction. No air
leak or crepitus noted. Abdomen soft and non tender. Denies nausea. Pena draining lokesh urine. Plus 1 lower extremity edema appreciated. Pulses weakly palpable. Dobutamine and insulin infusing. see flow sheet for titrations/totals. Plan for
day discussed.
[2023-07-01] MEDS: NOVOLIN R INSULIN INFUSION 100 IV (07:42)
[2023-07-01] MEDS: VANCOCIN 200 IV (08:13)
--- NOTE | 2023-07-01 08:13 | W.PN.ANS.POP ---
Anesthesia Post Operative
- Anesthesia Post Op Note
Vital Signs Stable-See Nursing Note: Yes (remains on dobutamine gtt)
Airway Patent: Yes
Adequate Pain Control: Yes
Change in Mental Status: No
Current Postoperative Nausea & Vomiting: No
Anesthesia Complications: No
General Anesthetic Recall: No
Unplanned Admission: No
Post Op Hydration Adequate: Yes
[2023-07-01] MEDS: DOBUTREX 500 MG 250 IV (08:14)
[2023-07-01] MEDS: VITAMIN C 500 MG PO (08:16)
[2023-07-01] MEDS: THERAGRAN 1 TABLET PO (08:16)
[2023-07-01] MEDS: VITAMIN B-12 1000 MCG PO (08:16)
[2023-07-01] MEDS: NEURONTIN 100 MG PO ×3 (08:16→22:30)
[2023-07-01] MEDS: SENOKOT-S 1 TABLET PO ×2 (08:16→20:22)
[2023-07-01] MEDS: PROTONIX 40 MG PO (08:16)
[2023-07-01] MEDS: CLARITIN 10 MG PO (08:16)
[2023-07-01] MEDS: LOW STRENGTH ASPIRIN 81 MG PO (08:16)
[2023-07-01] MEDS: MAGNESIUM OXIDE PO (08:17)
[2023-07-01] MEDS: BACTROBAN 2% OINTMENT 1 APPLIC NASAL ×2 (08:17→20:23)
[2023-07-01] MEDS: NOVOLOG FLEXPEN SC ×2 (08:17→15:21)
[2023-07-01] MEDS: LOPRESSOR PO (08:17)
[2023-07-01] MEDS: LIDOCAINE 4% PATCH TOPICAL (08:17)
[2023-07-01] MEDS: NSS IV (08:18)
[2023-07-01] MEDS: LIPITOR PO (08:27)
[2023-07-01 09:00] LABS: Glucose - Point of Care 159 mg/dl (70-99)
[2023-07-01 09:10] LABS: Mixed Venous O2 Saturation 57.8 %
[2023-07-01] MEDS: FLEXBUMIN 50 IV (09:16)
[2023-07-01] MEDS: LASIX 40 MG IV (09:17)
[2023-07-01] MEDS: TYLENOL 650 MG PO (09:34)
--- NOTE | 2023-07-01 10:06 | PTCARENOTE ---
Extensive discussion with patient regarding medications during hospital course and side effects and rational. Questions answered.
[2023-07-01 11:22] LABS: Glucose - Point of Care 89 mg/dl (70-99)
--- NOTE | 2023-07-01 11:38 | CM ---
Chart reviewed. Patient is independent of ADLS, lives alone in a 3rd floor apartment with elevator, ambulates with a rolling waker. Patient prefers to go to [facility] once medically stable for discharge. Referral sent. I left a voicemail
with Karen at [facility]. Plan is for the patient to go to [facility] when medically stable for discharge. CM to follow
--- NOTE | 2023-07-01 11:55 | PTCARENOTE ---
Resting in bed, Denies complaint. Tylenol managing pain well. Cardiac index remains as prior. Dobutamine maintained. VSS. Assessment otherwise unchanged from prior.
--- NOTE | 2023-07-01 12:32 | PTCARENOTE ---
Assist x 2-3 oob to chair, (line management) tolerated with rolling walker. Denies dizziness or SOB . No overt dumping from chest tubes observed. VSS
--- NOTE | 2023-07-01 12:37 | W.PN.CARDCBS ---
Addendum entered and electronically signed by Rolando Mosley MD 07/01/23 17:02:
I saw and examined the patient.
The Corrosion Control Technician's note was reviewed and I agree with the note.
Comment:
GEN: No distress, awake, Ox3
HEENT: supple, anicteric, mmm
LUNGS: CTA, no wheezes/rales
CV: Reg, S1/S2, no murmur/rub
ABD: soft, BS+, NT/ND
EXT: No edema
NEURO: Gross non-focal
SKIN: sternotomy
Plan:
Remains AV paced. Wean pressors and remove chest tubes as available.
Hg stable at 10.9, Creat 1.3
Continue postoperative care and pain control.
Original Note:
Today's Communication / Plan
-
continue post op care
wean dobut as able
eventual resume OP meds as ok per CT surg
echo prior to DC
Impression / Plan
-
Primary Nitroglycerin Distributor: Dr. Hiren Peters of [facility]
Assessment:
symptomatic mod to severe MR s/p biopros MVR, TV repair, MAZE, HARVINDER clip 06/30/23
admission to [facility] 04/2023 for CHF exacerbation
SSS s/p Medtronic DC PPM 2016
persistent afib on chronic sotalol and pradaxa therapy
chronic diastolic CHF
HTN
HLD
NIDDM
NSVT
obesity
chronic venous insufficiency/chronic lymphedema
TTE 04/27/2023 at [facility]: EF 55 to 60%, normal RV function, moderate to severe eccentric TN
KARL 04/29/23 at [facility]: Moderately severe dilated left atrium, moderately dilated right atrium, moderate to severe eccentric TN with moderate TI, EF felt to be mildly reduced visually
Plan:
-s/p biopros MVR, TV repair, MAZE, HARVINDER clip 06/30/23
-remains on 3.5 of dobut, wean as per CT surgery
-for echo prior to DC per surgery
-resume OP sotalol when ok per CT surgery. no amio
-EKG AV paced rhythm. she has a Medtronic DC PPM which was interrogated intraop.
-intraop KARL with EF 50-55%, no paravalvular leak noted, mean gradient 2mmHg, TR improved to mild, rhythm paced
-follow hgb post op, 10.9 on 06/30. was on pradaxa preop. HARVINDER without flow by intra op KARL
-continue post op care
-d/w nursing, CT surg CATH LAB RADIOLOGY TECHNICIAN
Progress Note - Nitroglycerin Distributor
Subjective
Date of Service: July 01, 2023
reports some post op discomfort
Objective
Labs:
07/01/23 00:13
07/01/23 00:13
Labs
Hgb 10.9 g/dL (12.0-16.0) L 07/01/23 00:13
Hct 32.1 % (37.0-47.0) L 07/01/23 00:13
Plt Count 131 10^3/uL (130-400) 07/01/23 00:13
PT 15.0 Sec (11.4-14.6) H 07/01/23 00:13
INR 1.20 07/01/23 00:13
APTT 36.2 Sec (23.4-35.0) H 06/30/23 11:21
Sodium 142 mmol/L (135-145) 07/01/23 00:13
Potassium 4.0 mmol/L (3.5-5.1) 07/01/23 00:13
BUN 30 mg/dl (7-17) H 07/01/23 00:13
Creatinine 1.3 mg/dL (0.6-1.0) H 07/01/23 00:13
Glucose 100 mg/dl (70-99) H 07/01/23 00:13
Vital Signs and I&O:
Vital Signs
Temp Pulse Resp BP Pulse Ox
98.6 F 80 24 94/59 98
07/01/23 12:00 07/01/23 12:00 07/01/23 12:00 07/01/23 09:17 07/01/23 12:00
Vital Signs
Temp Pulse Resp BP Pulse Ox
98.6 F 80 24 94/59 98
07/01/23 12:00 07/01/23 12:00 07/01/23 12:00 07/01/23 09:17 07/01/23 12:00
Intake & Output
06/29/23 06/30/23 07/01/23 07/02/23
07:59 07:59 07:59 07:59
Intake Total 2504.9 / 2567.0 1361.5 / 1361.5
Output Total 1190 / 1280 995 / 995
Balance 1314.9 / 1287.0 366.5 / 366.5
Physical Exam
Physical Exam
GEN: No distress, awake, alert, oriented x3. sitting in chair. obese
HEENT: supple, anicteric, mmm, eomi
LUNGS: Few crackles B/L, no wheezes
CV: Reg, S1/S2, no murmur
ABD: soft, NT/ND
EXT: No cyanosis, clubbing. 1+ edema of B/L LE
NEURO: Gross non-focal
SKIN: Warm, pink, dry. No rash. Sternotomy incision c/d/i. CTs in place
[2023-07-01 13:16] LABS: Glucose - Point of Care 105 mg/dl (70-99)
[2023-07-01 15:24] LABS: Glucose - Point of Care 94 mg/dl (70-99)
[2023-07-01] MEDS: HEPARIN 5000 UNITS SC (16:31)
--- NOTE | 2023-07-01 16:37 | PTCARENOTE ---
Tolerated sitting up in the chair for 4 hours. Heavy assist x 2 back to bed. CI 1.67, discussed with CT RESTROOMS OR LOUNGES MAID. Dobutamine remains. VSS. Assessment otherwise unchanged from prior.
[2023-07-01 17:37] LABS: Glucose - Point of Care 98 mg/dl (70-99)
[2023-07-01 20:04] LABS: Glucose - Point of Care 90 mg/dl (70-99)
[2023-07-01] MEDS: LOPRESSOR 12.5 MG PO (20:22)
[2023-07-01 22:29] LABS: Glucose - Point of Care 104 mg/dl (70-99)
[2023-07-01] MEDS: TYLENOL 1000 MG PO (22:30)
[2023-07-01 23:52] LABS: Glucose - Point of Care 85 mg/dl (70-99)
[2023-07-02] VITALS (26 sets, daily range): BP systolic 111–157; BP diastolic 61–98; PULSE 70; O2SAT 92; BMI 45.5
[2023-07-02 01:04] LABS: Glucose - Point of Care 107 mg/dl (70-99)
[2023-07-02 01:10] LABS: Mixed Venous O2 Saturation 53.3 %
[2023-07-02] MEDS: HEPARIN 5000 UNITS SC ×3 (01:16→15:33)
[2023-07-02 03:26] LABS: Glucose - Point of Care 292 mg/dl (70-99)
[2023-07-02 03:46] LABS: Hematocrit 26.8 % (37.0-47.0); Mean Corp Hgb Conc. 33.6 g/dL (33.0-37.0); Mean Corpuscular Hgb 31.3 pg (27.0-31.0); Mean Corpuscular Volume 93.1 fL (81.0-99.0); Red Blood Cell Count 2.88 10^6/uL (4.20-5.40); White Blood Cell Count 11.9 10^3/uL (4.8-10.8)
[2023-07-02 04:18] LABS: Blood Urea Nitrogen 24 mg/dl (7-17); Calcium 7.4 mg/dl (8.4-10.2); Carbon Dioxide 24 mmol/L (22-30); Chloride 105 mmol/L (98-107); Estimated Creatinine Clearance 75 ml/min; Glucose 217 mg/dl (70-99); Magnesium 2.2 mg/dl (1.6-2.3); Potassium 3.2 mmol/L (3.5-5.1); Sodium 134 mmol/L (135-145); eGFR > 60.00
[2023-07-02 04:38] LABS: Glucose - Point of Care 87 mg/dl (70-99)
--- NOTE | 2023-07-02 05:57 | W.PN.CT ---
Today's Communication / Plan
-
-pod #2
-no issues overnight. Hemodynamically and neurologically intact
-CI 1.93, CO 3.87, mvO2 53.3 at 1 am. Drips: Dobut 3, Insulin
-CT output: 2 meds 100/450 in 12/24 hrs
-diuresed 1235 cc on 06/30 with 25% Albumin and 40 iv Lasix. Continue diuresis
-follow Cr (1.3 on 06/30, 1.2 preop)-- 0.8 today
-follow platelets - pending
-follow CXR (pleur effusions/atelectasis)
-holding BB and Amio while on Dobut (of note, pt was on Sotalol preop). Currently, av-paced @80
-sq Heparin for DVT prophylaxis (hx DVT/PE, poor mobility). Plans to restart Pradaxa on pod #4
-? continue Pena 24 hrs for critical I/O
-current meds (ASA, Lipitor, sq Heparin, Neurontin, Protonix)
-continue PT/OT. Noted recommendation for rehab at discharge
-will need repeat echo to re-assess valves and LVEF before d/c home
-appreciate everyone's input
-encourage IS, OOB
Assessment / Plan
-
Assessment:
-S/P Chordal sparing mitral valve replacement [27 mm bioprosthetic]/Tricuspid valve repair [28 mm band annuloplasty]/Biatrial MAZE using cryo ablation/Left atrial appendage exclusion [35 mm clip]/Intraoperative interrogation and setting of
pre-existing PPM, by Dr. Claros on 06/30/23, pod#2
-Severe mitral valve insufficiency [mixed pathology combination of type I�atrial functional, and sclerotic anterior posterior leaflets]
-Moderate TR
-Mild AI
-A-fib with sick sinus syndrome S/P Cardioversion (02/2017), PPM placement (06/2016)- on Pradaxa, Sotalol, and Cardizem preop
-LVEF 50-55% per intraop KARL
-Recent diastolic CHF, 04/2023
-Recent PNA, 04/2023
-MRSA+ (nasal swab on 06/24/23)
-Recent E. Coli UTI (06/24/23, treated with Macrobid)
-LIZBETH (uses CPAP)
-Orthopnea
-HTN/Hyperlipidemia
-T2DM (A1C 6.4)
-CKD 3a (Cr 1.2 preop)
-Class 3 obesity (BMI 44)
-GERD
-Hx DVT/PE (2012)
-Gout
-Lymphedema
-Venous stasis
-Ambulatory dysfunction (uses walker)
-Hx endometrial ca S/P CHELITA with XRT
-S/P D&C
-S/P Carpal tunnel
-S/P B/L Cataracts
-S/P Herniorrhaphy
-S/P Tonsillectomy
-Acute postop blood loss/Anemia (stable without blood transfusion)
-Acute postop thrombocytopenia (stable without active bleed)
-Acute postop atelectasis/pleural effusion
-Acute postop hypovolemia with subsequent hypervolemia
-Acute postop cardiogenic shock, requiring dobutamine gtt
-Acute postop hypermagnesemia
Discussed patient care with: Nursing and Care Team
Subjective
Procedure
-S/P Chordal sparing mitral valve replacement [27 mm bioprosthetic]/Tricuspid valve repair [28 mm band annuloplasty]/Biatrial MAZE using cryo ablation/Left atrial appendage exclusion [35 mm clip]/Intraoperative interrogation and setting of
pre-existing PPM, by Dr. Claros, 06/30/23, pod#1
-
Date of Service: July 02, 2023
Objective Data
-
PT 15.0 Sec (11.4-14.6) H 07/01/23 00:13
INR 1.20 07/01/23 00:13
APTT 36.2 Sec (23.4-35.0) H 06/30/23 11:21
Vital Signs
Vital Signs
Temp Pulse Resp BP Pulse Ox
98.3 F 80 16 165/78 98
07/01/23 17:10 07/01/23 19:30 07/01/23 19:30 07/01/23 19:00 07/01/23 16:00
CT Intake/Output/Weight
07/01/23 07/01/23 07/02/23
06:59 18:59 06:59
Intake Total 1875.2 / 2470.9 2117.6 / 2117.6
Output Total 595 / 1130 1585 / 1825 240 / 1825
Balance 1280.2 / 1340.9 532.6 / 292.6 -240 / 292.6
SaO2: 98
Physical Exam
-
General: Awake, Oriented and AOx3
Cardiovascular: Regular rate & rhythm, No Murmurs, No Rub and No Gallop
Respiratory: Decreased Breath Sounds
Sternum: Stable
Incision: Clean, Dry, Intact and Dressing Intact
Abdomen: soft, nondistended, nontender, + bowel sounds
Extremities: Edema +1 b/l with chronic b/l brown skin discoloration
Data Reviewed
-
Lab Results: Results Reviewed
Medications: Active Meds Reviewed
Chest X-Ray: Report Reviewed and Image Reviewed
ECG: Report Reviewed and Image Reviewed
[2023-07-02] MEDS: NOVOLOG FLEXPEN SC (06:09)
[2023-07-02 06:22] LABS: Mean Platelet Volume 10.5 fL (7.4-10.4); Platelet Count 92 10^3/uL (130-400)
[2023-07-02] MEDS: TYLENOL 1000 MG PO ×3 (06:42→20:37)
[2023-07-02] MEDS: KCL 40 MEQ PO (06:42)
[2023-07-02 06:43] LABS: Glucose - Point of Care 99 mg/dl (70-99)
[2023-07-02] MEDS: CALCIUM GLUCONATE 100 IV ×2 (07:22→14:22)
[2023-07-02] MEDS: KLOR-CON 20 MEQ PO (07:22)
[2023-07-02] MEDS: LASIX 40 MG IV ×2 (07:23→14:22)
--- NOTE | 2023-07-02 07:30 | PTCARENOTE ---
Assumed care of patient from production supervisor off shift RN. AAO x 3 Dozing in the chair. AV paced on monitor. RT IJ swan at 50 cm. 2 L NC 97%, obtaining 1250 on IS . Chest tubes x 2 to - 20 cm suction. No crepitus or air leak noted. Abdomen obese, with
hypoactive bowel sounds, Denies nausea. Pena draining clear lokesh urine. Cleanses with pre packaged wipes. Sternal incision well approximated with surgical adhesive. DP pulses weakly palpable. Bilateral legs with plus 1 edema appreciated.
Dobutamine and insulin infusing. See flow sheets for totals.
[2023-07-02 08:14] LABS: ACT+ - POC > 1003 Seconds (82-134)
[2023-07-02 08:14] LABS: ACT+ - POC > 1003 Seconds (82-134)
[2023-07-02 08:15] LABS: ACT+ - POC > 1003 Seconds (82-134)
[2023-07-02 08:17] LABS: Glucose - Point of Care 106 mg/dl (70-99)
[2023-07-02] MEDS: LOW STRENGTH ASPIRIN 81 MG PO (08:17)
[2023-07-02] MEDS: NEURONTIN 100 MG PO ×3 (08:17→20:37)
[2023-07-02] MEDS: THERAGRAN 1 TABLET PO (08:17)
[2023-07-02] MEDS: CLARITIN 10 MG PO (08:17)
[2023-07-02] MEDS: VITAMIN B-12 1000 MCG PO (08:17)
[2023-07-02] MEDS: SENOKOT-S 1 TABLET PO ×2 (08:17→20:37)
[2023-07-02] MEDS: PROTONIX 40 MG PO (08:17)
[2023-07-02] MEDS: VITAMIN C 500 MG PO (08:18)
[2023-07-02] MEDS: LIDOCAINE 4% PATCH TOPICAL (08:18)
[2023-07-02] MEDS: BACTROBAN 2% OINTMENT 1 APPLIC NASAL ×2 (08:18→20:38)
[2023-07-02] MEDS: NOVOLOG FLEXPEN 4 UNITS SC (08:18)
[2023-07-02 08:58] LABS: Glucose - Point of Care 144 mg/dl (70-99)
[2023-07-02] MEDS: DOBUTREX 500 MG 250 IV (09:49)
[2023-07-02] MEDS: NSS 500 IV (09:50)
--- NOTE | 2023-07-02 10:26 | CM ---
Chart reviewed. Patient is independent of ADLS, lives alone in a 3rd floor apartment, elevator access, uses a rolling walker. PT evaluation recommending SNF. Patient is agreeable. Patient has been to [facility] in the past and would like
to return there when medically stable for discharge. Referral faxed to [facility] and patient is accepted. Patient will need preauthorization from insurance company. [facility] does have a bed available for Thursday. Plan is for the patient
to go to SNF when medically stable for discharge. CM to follow
--- NOTE | 2023-07-02 10:29 | W.PN.CARDCBS ---
Addendum entered and electronically signed by Andres Amor DO 07/02/23 12:03:
I saw and examined the patient.
The Baby Formula Worker's note was reviewed and I agree with the note.
Comment:
Plan:
Cont post op care
Wean off Dobutamine.
Echo prior to d/c per CT surgery.
Eventually resume outpt Sotalol and Pradaxa.
Medtronic PPM, HR now at 70 bpm.
Discussed with nursing.
Original Note:
Today's Communication / Plan
-
continue post op care
wean dobut
resume OP sotalol and pradaxa when ok per surgery
Impression / Plan
-
Primary Photogrammetric Engineer: Dr. Hiren Peters of [facility]
Assessment:
symptomatic mod to severe MR s/p biopros MVR, TV repair, MAZE, HARVINDER clip 06/30/23
admission to [facility] 04/2023 for CHF exacerbation
SSS s/p Medtronic DC PPM 2017
persistent afib on chronic sotalol and pradaxa therapy
chronic diastolic CHF
HTN
HLD
NIDDM
NSVT
obesity
chronic venous insufficiency/chronic lymphedema
TTE 04/27/2023 at [facility]: EF 55 to 60%, normal RV function, moderate to severe eccentric DC
KARL 04/29/23 at [facility]: Moderately severe dilated left atrium, moderately dilated right atrium, moderate to severe eccentric DC with moderate TI, EF felt to be mildly reduced visually
Plan:
-s/p biopros MVR, TV repair, MAZE, HARVINDER clip 06/30/23
-remains on 2.5 of dobut, weaning as per CT surgery
-for echo prior to DC per surgery
-resume OP sotalol when ok per CT surgery (was on 120mg Q12H preop). no amio
-remains av paced on review of tele. she has a Medtronic DC PPM which was interrogated intraop and this morning, rate changed to 70bpm.
-intraop KARL with EF 50-55%, no paravalvular leak noted, mean gradient 2mmHg, TR improved to mild, rhythm paced
-follow hgb post op, 10.9 on 06/30. was on pradaxa preop, to resume post op day 4 (07/03). HARVINDER without flow by intra op KARL
-continue post op care
-OP follow up with Dr. Peters
-d/w nursing, CT surg PARTS CLASSIFIER
Progress Note - Photogrammetric Engineer
Subjective
Date of Service: July 02, 2023
Reports some pain with deep breathing. Also reports sore throat
Objective
Labs:
07/02/23 03:16
07/02/23 03:16
Labs
Hgb 9.0 g/dL (12.0-16.0) L 07/02/23 03:16
Hct 26.8 % (37.0-47.0) L 07/02/23 03:16
Plt Count 92 10^3/uL (130-400) L D 07/02/23 03:16
PT 15.0 Sec (11.4-14.6) H 07/01/23 00:13
INR 1.20 07/01/23 00:13
APTT 36.2 Sec (23.4-35.0) H 06/30/23 11:21
Sodium 134 mmol/L (135-145) L D 07/02/23 03:16
Potassium 3.2 mmol/L (3.5-5.1) L 07/02/23 03:16
BUN 24 mg/dl (7-17) H 07/02/23 03:16
Creatinine 0.8 mg/dL (0.6-1.0) 07/02/23 03:16
Glucose 217 mg/dl (70-99) H 07/02/23 03:16
Vital Signs and I&O:
Vital Signs
Temp Pulse Resp BP Pulse Ox
98.9 F 70 19 131/66 98
07/02/23 09:59 07/02/23 10:00 07/02/23 10:00 07/02/23 10:00 07/02/23 09:59
Vital Signs
Temp Pulse Resp BP Pulse Ox
98.9 F 70 19 131/66 98
07/02/23 09:59 07/02/23 10:00 07/02/23 10:00 07/02/23 10:00 07/02/23 09:59
Intake & Output
06/30/23 07/01/23 07/02/23 07/03/23
07:59 07:59 07:59 07:59
Intake Total 2504.9 / 2567.0 2624.1 / 2624.1 93.4 / 93.4
Output Total 1190 / 1280 2300 / 2300 515 / 515
Balance 1314.9 / 1287.0 324.1 / 324.1 -421.6 / -421.6
Physical Exam
Physical Exam
GEN: No distress, awake, alert, oriented x3. sitting in chair. obese
HEENT: supple, anicteric, mmm, eomi
LUNGS: CTA B/L, no wheezes
CV: Reg, S1/S2, no murmur
ABD: soft, NT/ND
EXT: No cyanosis, clubbing. 1+ edema of B/L LE with chronic discoloration
NEURO: Gross non-focal
SKIN: Warm, pink, dry. No rash. Sternotomy incision c/d/i. CTs in place
: liliana
[2023-07-02 11:18] LABS: Glucose - Point of Care 121 mg/dl (70-99)
--- NOTE | 2023-07-02 11:20 | PTCARENOTE ---
Glycemic protocol discontinued as per Order. Will continue to monitor blood sugars closely.
[2023-07-02] MEDS: NOVOLOG FLEXPEN-MODERATE RESISTANCE SC (12:21)
--- NOTE | 2023-07-02 12:25 | PTCARENOTE ---
Sitting up in chair. Denies pain at present. Dobutamine maintained. VSS, Will continue to monitor.
--- NOTE | 2023-07-02 13:00 | PTCARENOTE ---
Renal panel drawn, critical results reviewed with CT TAVERN KEEPER, electrolytes replaced. VSS. Repeat Mixed venous ordered and obtained. IV lasix administered. Good urine out put.
[2023-07-02 13:19] LABS: Blood Urea Nitrogen 22 mg/dl (7-17); Calcium 6.7 mg/dl (8.4-10.2); Carbon Dioxide 22 mmol/L (22-30); Chloride 108 mmol/L (98-107); Estimated Creatinine Clearance 87 ml/min; Glucose 217 mg/dl (70-99); Potassium 3.6 mmol/L (3.5-5.1); Sodium 133 mmol/L (135-145); eGFR > 60.00
[2023-07-02] MEDS: KLOR-CON 40 MEQ PO (14:17)
--- NOTE | 2023-07-02 14:24 | PN.CDI ---
CDI
- -
CDI:
Physician Documentation Request
Admit Date: 06/30/23 05:13
Dear Doctor Claros/CVPA,
Please review the following and provide your response in the progress notes.
Clinical Indicators:
Pt admitted for MVR s/p MAZE /MVR on 06/29 /With Cardiogenic shock post op on Dobutamine / IV diuresis as well
Renal functions are as below
06/24/23 06/30/23 07/01/23
09:52 11:21 00:13
Creatinine 1.2 H 1.1 H 1.3 H
07/02/23 07/02/23
03:16 12:43
Creatinine 0.8 0.7
Clarify which of the following accurately represents the patient's renal status:
SANA
Abnormal lab value only
Other
Criteria for SANA*
1 Increase in serum creatinine by > or = to 0.3 mg/dL (> or = to 26.5 micromol/L) within 48 hours, OR
2 Increase in serum creatinine to > or = to 1.5 times baseline, which is known or presumed to have occurred within 7 days, OR
3 Urine volume < 0.5 nL/kg/hour for six hours
Use of terms such as suspected, likely, concern for, or probable (associated with a specific diagnosis that is being evaluated, monitored, or treated as if it exists) are acceptable and can be coded in the inpatient setting, when documented at the
time of discharge.
Thank you,
Meryl Nevarez RN
CDI Specialist
[place] [facility]
Please use your independent medical judgment in providing your response.
*Source: Kidney Disease: Improving Global Outcomes (KDIGO) 2012
--- NOTE | 2023-07-02 14:27 | PN.CDI ---
CDI
- -
CDI:
Physician Documentation Request
Admit Date: 06/30/23 05:13
Dear Doctor Claros/MADI,
Please review the following and provide your response in the progress notes.
Clinical Indicators:
Pt admitted for MVR s/p MAZE /MVR on 06/29 /With Cardiogenic shock post op on Dobutamine / IV diuresis as well
Sodium labs are as below /Did get IVFs LR
07/02/23 07/02/23
03:16 12:43
Sodium 134 L D 133 L
Based on the above, could you clarify in the progress notes, the appropriate diagnosis, if significant, that supports the above abnormalities and additional evaluation, monitoring and/or treatment rendered:
Hyponatremia
Abnormal lab value only
Other
Use of terms such as suspected, likely, concern for, or probable (associated with a specific diagnosis that is being evaluated, monitored, or treated as if it exists) are acceptable and can be coded in the inpatient setting, when documented at the
time of discharge.
Thank you,
Meryl Nevarez RN
CDI Specialist
[place] [facility]
Please use your independent medical judgment in providing your response.
[2023-07-02 15:39] LABS: Mixed Venous O2 Saturation 57.5 %
--- NOTE | 2023-07-02 16:48 | PTCARENOTE ---
Assist x 3 to bed. Rt IJ swan removed at this time as per order. Chest tube dressing also changed at this time. Assessment otherwise unchanged from prior.
[2023-07-02] MEDS: NOVOLOG FLEXPEN-MODERATE RESISTANCE 1 UNITS SC (17:46)
[2023-07-02] MEDS: PRANDIN 1 MG PO (17:46)
[2023-07-02 17:57] LABS: Glucose - Point of Care 165 mg/dl (70-99)
[2023-07-02] MEDS: KCL 20 MEQ PO (20:39)
[2023-07-03] VITALS (19 sets, daily range): BP systolic 142–188; BP diastolic 58–108; PULSE 70; O2SAT 92; BMI 46.0
[2023-07-03 00:18] LABS: Mixed Venous O2 Saturation 57.2 %
[2023-07-03 00:21] LABS: Ionized Calcium 1.22 mMOL/L (1.15-1.33)
[2023-07-03 00:41] LABS: Magnesium 2.2 mg/dl (1.6-2.3); Potassium 4.3 mmol/L (3.5-5.1)
[2023-07-03] MEDS: HEPARIN 5000 UNITS SC ×4 (00:48→23:50)
--- NOTE | 2023-07-03 05:48 | W.PN.CT ---
Today's Communication / Plan
-
-pod #3
-no issues overnight.
-mvO2 60.0 at 6am. Drips: Dobut 1
-CT output: 2 meds 80/210 in 12/24 hrs
-diuresed with 40 iv bid Lasix on 516 (UO 750/2230 in 12/24 hrs)-continue (wt is up 8 lbs postop)
-labs are pending
-hypertensive - ? starting JACIEL
-plans for Echo once off Dobut
-holding BB and Amio while on Dobut (of note, pt was on Sotalol preop). Currently, av-paced @70
-sq Heparin for DVT prophylaxis (hx DVT/PE, poor mobility). Plans to restart Pradaxa on pod #4
-current meds (ASA, Lipitor, sq Heparin, Neurontin, Protonix)
-continue PT/OT. Noted recommendation for rehab at discharge
-appreciate everyone's input
-encourage IS, OOB
Assessment / Plan
-
Assessment:
-S/P Chordal sparing mitral valve replacement [27 mm bioprosthetic]/Tricuspid valve repair [28 mm band annuloplasty]/Biatrial MAZE using cryo ablation/Left atrial appendage exclusion [35 mm clip]/Intraoperative interrogation and setting of
pre-existing PPM, by Dr. Claros on 06/30/23, pod#3
-Severe mitral valve insufficiency [mixed pathology combination of type I�atrial functional, and sclerotic anterior posterior leaflets]
-Moderate TR
-Mild AI
-A-fib with sick sinus syndrome S/P Cardioversion (02/2017), PPM placement (06/2016)- on Pradaxa, Sotalol, and Cardizem preop
-LVEF 50-55% per intraop KARL
-Recent diastolic CHF, 04/2023
-Recent PNA, 04/2023
-MRSA+ (nasal swab on 06/24/23)
-Recent E. Coli UTI (06/24/23, treated with Macrobid)
-LIZBETH (uses CPAP)
-Orthopnea
-HTN/Hyperlipidemia
-T2DM (A1C 6.4)
-CKD 3a (Cr 1.2 preop)
-Class 3 obesity (BMI 44)
-GERD
-Hx DVT/PE (2012)
-Gout
-Lymphedema
-Venous stasis
-Ambulatory dysfunction (uses walker)
-Hx endometrial ca S/P CHELITA with XRT
-S/P D&C
-S/P Carpal tunnel
-S/P B/L Cataracts
-S/P Herniorrhaphy
-S/P Tonsillectomy
-Acute postop blood loss/Anemia (stable without blood transfusion)
-Acute postop thrombocytopenia (stable without active bleed)
-Acute postop atelectasis/pleural effusion
-Acute postop hypovolemia with subsequent hypervolemia
-Acute postop cardiogenic shock, requiring dobutamine gtt
-Acute postop hypermagnesemia
Discussed patient care with: Nursing and Care Team
Subjective
Procedure
-S/P Chordal sparing mitral valve replacement [27 mm bioprosthetic]/Tricuspid valve repair [28 mm band annuloplasty]/Biatrial MAZE using cryo ablation/Left atrial appendage exclusion [35 mm clip]/Intraoperative interrogation and setting of
pre-existing PPM, by Dr. Claros, 06/30/23, pod#1
-
Date of Service: July 03, 2023
Objective Data
-
PT 15.0 Sec (11.4-14.6) H 07/01/23 00:13
INR 1.20 07/01/23 00:13
APTT 36.2 Sec (23.4-35.0) H 06/30/23 11:21
Vital Signs
Vital Signs
Temp Pulse Resp BP Pulse Ox
98.7 F 71 18 142/62 97
07/03/23 00:20 07/03/23 00:15 07/03/23 00:20 07/03/23 00:00 07/02/23 16:00
CT Intake/Output/Weight
07/02/23 07/02/23 07/03/23
06:59 18:59 06:59
Intake Total 1876.3 / 1876.3
Output Total 715 / 2300 1610 / 2160 550 / 2160
Balance -715 / -182.4 266.3 / -283.7 -550 / -283.7
SaO2: 97
Physical Exam
-
General: Awake, Oriented and AOx3
Cardiovascular: Regular rate & rhythm, No Murmurs, No Rub and No Gallop
Respiratory: Decreased Breath Sounds
Sternum: Stable
Incision: Clean, Dry, Intact and Dressing Intact
Abdomen: soft, nondistended, nontender, + bowel sounds
Extremities: Edema +1 b/l with chronic b/l brown skin discoloration
Data Reviewed
-
Lab Results: Results Reviewed
Medications: Active Meds Reviewed
Chest X-Ray: Report Reviewed and Image Reviewed
ECG: Report Reviewed and Image Reviewed
[2023-07-03 06:06] LABS: Hematocrit 31.7 % (37.0-47.0); Hemoglobin 10.6 g/dL (12.0-16.0); Mean Corp Hgb Conc. 33.4 g/dL (33.0-37.0); Mean Corpuscular Hgb 31.1 pg (27.0-31.0); Mean Platelet Volume 10.3 fL (7.4-10.4); Platelet Count 119 10^3/uL (130-400); Red Blood Cell Count 3.41 10^6/uL (4.20-5.40); Red Cell Dist. Width 15.1 % (11.5-14.5); White Blood Cell Count 11.8 10^3/uL (4.8-10.8)
[2023-07-03 06:24] LABS: Blood Urea Nitrogen 27 mg/dl (7-17); Calcium 8.8 mg/dl (8.4-10.2); Carbon Dioxide 26 mmol/L (22-30); Chloride 103 mmol/L (98-107); Estimated Creatinine Clearance 67 ml/min; Glucose 127 mg/dl (70-99); Magnesium 2.2 mg/dl (1.6-2.3); Potassium 4.6 mmol/L (3.5-5.1); Sodium 135 mmol/L (135-145); eGFR > 60.00
[2023-07-03] MEDS: TYLENOL 1000 MG PO ×3 (06:42→21:35)
[2023-07-03] MEDS: NOVOLOG FLEXPEN-MODERATE RESISTANCE SC (07:31)
--- NOTE | 2023-07-03 08:59 | PTCARENOTE ---
assumed care of pt from previous shift RN, AV paced on tele, however, pacer noted to be misfiring. CV RUSH made aware. Pt assisted back to bed. Pacer to be interrogated. VSS, + peripheral pulses, +2 edema to bilateral lower extremities. Lungs
diminished, pox 98% on 2L NC. +bs, abd round and obese. pt denies nausea. Pena catheter draining yellow. CT x2 w minimal amount of drainage. Post op incision approximated and intact. Right IJ cordis w kvo infusing, PIV flushes easily. Dobutamine
infusing at 1mcg, turning off at 8am per Dr. Claros. Plan of care reviewed w the pt and questions encouraged.
[2023-07-03] MEDS: KCL 40 MEQ PO ×2 (09:06→19:58)
[2023-07-03] MEDS: LOW STRENGTH ASPIRIN 81 MG PO (09:06)
[2023-07-03] MEDS: THERAGRAN 1 TABLET PO (09:07)
[2023-07-03] MEDS: CLARITIN 10 MG PO (09:07)
[2023-07-03] MEDS: PROTONIX 40 MG PO (09:07)
[2023-07-03] MEDS: SENOKOT-S 1 TABLET PO ×2 (09:07→19:58)
[2023-07-03] MEDS: PRANDIN 1 MG PO ×2 (09:07→13:15)
[2023-07-03] MEDS: VITAMIN B-12 1000 MCG PO (09:07)
[2023-07-03] MEDS: VITAMIN C 500 MG PO (09:08)
[2023-07-03] MEDS: NEURONTIN 100 MG PO ×3 (09:08→21:35)
[2023-07-03] MEDS: BACTROBAN 2% OINTMENT 1 APPLIC NASAL ×2 (09:09→19:58)
[2023-07-03] MEDS: LIDOCAINE 4% PATCH TOPICAL (09:09)
[2023-07-03] MEDS: LASIX 80 MG PO ×2 (10:22→15:30)
[2023-07-03] MEDS: LIPITOR 10 MG PO (10:22)
[2023-07-03 10:54] LABS: B.E. - POC 4.4 mmol/L; Glucose - POC 131 mg/dl (65-99); HCO3 - POC 29 mmol/L (21-29); Hematocrit - POC 29 % PCV (37-47); Hemodilution- POC Yes; Ionized Calcium - POC 1.04 mmol/L (1.12-1.27); O2 Saturation %Calculated-POC 99.8 5 (92-96); PCO2 - POC 43 mmHg (35-45); PO2 - POC 234 mmHg (80-100); Potassium - POC 3.8 mmol/L (3.6-5.0); Sodium - POC 141 mmol/L (135-145); pH - POC 7.44 (7.35-7.45)
[2023-07-03 10:54] LABS: B.E. - POC 4.6 mmol/L; Glucose - POC 113 mg/dl (65-99); HCO3 - POC 28 mmol/L (21-29); Hematocrit - POC 26 % PCV (37-47); Hemodilution- POC Yes; Ionized Calcium - POC 0.95 mmol/L (1.12-1.27); O2 Saturation %Calculated-POC 99.9 5 (92-96); PCO2 - POC 37 mmHg (35-45); PO2 - POC 306 mmHg (80-100); Sodium - POC 140 mmol/L (135-145); pH - POC 7.49 (7.35-7.45)
--- NOTE | 2023-07-03 10:59 | PTCARENOTE ---
PPM interrogated by [employer] rep. Echo and CXR completed as ordered. CTs removes as ordered.
--- NOTE | 2023-07-03 11:07 | CM ---
Chart reviewed. Patient is independent of ADLS, lives alone in a 3rd floor apartment, ambulates with a rolling walker, has a hospital bed, shower bench and CPAP in the home. PT evaluation recommending SNF. Patient is agreeable. Patient has been
to [facility] in the past and would prefer to go back. [facility] accepted the patient. Patient will need insurance authorization. Plan is for the patient to go to [facility] when medically stable. CM to follow
--- NOTE | 2023-07-03 11:18 | W.PN.CARDCBS ---
Addendum entered and electronically signed by Hiren Cannon MD 07/03/23 13:54:
Patient seen and examined
Agree with YESSENIA Cunningham's note and assessment
Agree with YESSENIA Cunningham's plan
Reviewed interrogation with Hiren Whaley from [employer] P wave sensing at 0.1 mV with noncapture. Underlying rhythm is sinus bradycardia. We programmed the device to DDD D70 to allow ventricular rates in the 70s for hemodynamics. She had just
completed a dobutamine wean.
Plan to remove mediastinal tube today.
Examination:
Sternum intact
Pertinent x 3
Left-sided device
Chest x-ray demonstrates relatively stable appearing atrial lead position
Tubes noted
Primary Twisting Machine Operator: Dr. Hiren Peters of [facility]
Assessment:
symptomatic mod to severe MR s/p biopros MVR, TV repair, MAZE, HARVINDER clip 06/30/23
admission to [facility] 04/2023 for CHF exacerbation
SSS s/p [employer] DC PPM 2016
persistent afib on chronic sotalol and pradaxa therapy
chronic diastolic CHF
HTN
HLD
NIDDM
NSVT
obesity
chronic venous insufficiency/chronic lymphedema
TTE 04/27/2023 at [facility]: EF 55 to 60%, normal RV function, moderate to severe eccentric VA
KARL 04/29/23 at [facility]: Moderately severe dilated left atrium, moderately dilated right atrium, moderate to severe eccentric VA with moderate TI, EF felt to be mildly reduced visually
Plan:
-s/p biopros MVR, TV repair, MAZE, HARVINDER clip 06/30/23
-off dobut as of this AM
-echo completed, awaiting read
-noted this morning to have periods of what appears to be lack of capture. likely to require RA lead revision early next week
-currently set at DDD@70 and av paced
-holding on pradaxa until post PPM. HARVINDER without flow by intra op KARL. I have no objection to resuming Pradaxa over the weekend but if we plan a lead revision on Thursday would hold Thursday night and Thursday morning Pradaxa doses.
-holding BB. no amio given sotalol preop, consider resuming post lead revision
-intraop KARL with EF 50-55%, no paravalvular leak noted, mean gradient 2mmHg, TR improved to mild, rhythm paced
-continue diuresis
-continue post op care
-OP follow up with Dr. Peters
-d/w nursing
Original Note:
Today's Communication / Plan
-
likely for lead revision early next week
av paced @70 at present
holding BB/OP sotalol/amio
holding pradaxa at present with plan for procedure
awaiting echo 07/02
plan for SNF upon DC
Impression / Plan
-
Primary Twisting Machine Operator: Dr. Hiren Peters of [facility]
Assessment:
symptomatic mod to severe MR s/p biopros MVR, TV repair, MAZE, HARVINDER clip 06/30/23
admission to [facility] 04/2023 for CHF exacerbation
SSS s/p [employer] DC PPM 2016
persistent afib on chronic sotalol and pradaxa therapy
chronic diastolic CHF
HTN
HLD
NIDDM
NSVT
obesity
chronic venous insufficiency/chronic lymphedema
TTE 04/27/2023 at [facility]: EF 55 to 60%, normal RV function, moderate to severe eccentric VA
KARL 04/29/23 at [facility]: Moderately severe dilated left atrium, moderately dilated right atrium, moderate to severe eccentric VA with moderate TI, EF felt to be mildly reduced visually
Plan:
-s/p biopros MVR, TV repair, MAZE, HARVINDER clip 06/30/23
-off dobut as of this AM
-echo completed, awaiting read
-noted this morning to have periods of what appears to be lack of capture. likely to require RA lead revision early next week
-currently set at DDD@70 and av paced
-holding on pradaxa until post PPM. HARVINDER without flow by intra op KARL
-holding BB. no amio given sotalol preop, consider resuming post lead revision
-intraop KARL with EF 50-55%, no paravalvular leak noted, mean gradient 2mmHg, TR improved to mild, rhythm paced
-continue diuresis
-continue post op care
-OP follow up with Dr. Peters
-d/w nursing
Progress Note - Twisting Machine Operator
Subjective
Date of Service: July 03, 2023
reports did not sleep well overnight. no dizziness/lightheadedness
Objective
Labs:
07/03/23 05:49
07/03/23 05:49
Labs
Hgb 10.6 g/dL (12.0-16.0) L 07/03/23 05:49
Hct 31.7 % (37.0-47.0) L 07/03/23 05:49
Plt Count 119 10^3/uL (130-400) L D 07/03/23 05:49
PT 15.0 Sec (11.4-14.6) H 07/01/23 00:13
INR 1.20 07/01/23 00:13
APTT 36.2 Sec (23.4-35.0) H 06/30/23 11:21
Sodium 135 mmol/L (135-145) 07/03/23 05:49
Potassium 4.6 mmol/L (3.5-5.1) 07/03/23 05:49
BUN 27 mg/dl (7-17) H 07/03/23 05:49
Creatinine 0.9 mg/dL (0.6-1.0) 07/03/23 05:49
Glucose 127 mg/dl (70-99) H 07/03/23 05:49
Vital Signs and I&O:
Vital Signs
Temp Pulse Resp BP Pulse Ox
100.2 F 72 24 176/64 98
07/03/23 08:00 07/03/23 10:00 07/03/23 10:00 07/03/23 08:51 07/03/23 09:36
Vital Signs
Temp Pulse Resp BP Pulse Ox
100.2 F 72 24 176/64 98
07/03/23 08:00 07/03/23 10:00 07/03/23 10:00 07/03/23 08:51 07/03/23 09:36
Intake & Output
07/01/23 07/02/23 07/03/23 07/04/23
07:59 07:59 07:59 07:59
Intake Total 2504.9 / 2567.0 2624.1 / 2624.1 1335.8 / 1352.1 42.6 / 42.6
Output Total 1190 / 1280 2300 / 2300 2380 / 2420 140 / 140
Balance 1314.9 / 1287.0 324.1 / 324.1 -1044.2 / -1067.9 -97.4 / -97.4
Physical Exam
Physical Exam
GEN: No distress, awake, alert, oriented x3. obese
HEENT: supple, anicteric, mmm, eomi
LUNGS: diminished BS B/L, no wheezes
CV: Reg, S1/S2, no murmur
ABD: soft, NT/ND
EXT: No cyanosis, clubbing. 1+ edema of B/L LE with chronic discoloration
NEURO: Gross non-focal
SKIN: Warm, pink, dry. No rash. Sternotomy incision c/d/i.
ANDREW: liliana
--- NOTE | 2023-07-03 12:48 | PTCARENOTE ---
pt worked w PT/OT, tolerating sitting OOB in chair.
[2023-07-03 13:13] LABS: Mixed Venous O2 Saturation 56.4 %
[2023-07-03 13:14] LABS: Glucose - Point of Care 207 mg/dl (70-99)
[2023-07-03] MEDS: NOVOLOG FLEXPEN-MODERATE RESISTANCE 3 UNITS SC (13:16)
[2023-07-03] MEDS: NSS 500 IV (13:18)
[2023-07-03 13:23] LABS: Blood Urea Nitrogen 28 mg/dl (7-17); Carbon Dioxide 27 mmol/L (22-30); Chloride 101 mmol/L (98-107); Estimated Creatinine Clearance 68 ml/min; Glucose 196 mg/dl (70-99); Potassium 4.4 mmol/L (3.5-5.1); Sodium 134 mmol/L (135-145); eGFR > 60.00
[2023-07-03] MEDS: NORVASC 5 MG PO (15:30)
--- NOTE | 2023-07-03 15:40 | PTCARENOTE ---
Pt sitting OOB, cooperative. BP 164/72, CT RUSH made aware. Norvasc started. Pena catheter to remain today per RUSH, will be readdressed tomorrow.
[2023-07-03] MEDS: PRANDIN 2 MG PO (17:29)
[2023-07-03 17:30] LABS: Glucose - Point of Care 195 mg/dl (70-99)
[2023-07-03] MEDS: NOVOLOG FLEXPEN-MODERATE RESISTANCE 1 UNITS SC (17:30)
[2023-07-03] MEDS: PRANDIN PO (17:33)
[2023-07-03 19:20] LABS: Mixed Venous O2 Saturation 48.6 %
--- NOTE | 2023-07-03 21:00 | PTCARENOTE ---
Received pt from dayshift; pt is assisted x2 RNs to bed; pt is AAOX4; AV paced on monitor, VSS; heart sounds audible, radial and DP pulses palpable, +1 generalized edema; lung sounds diminished through out, spo2 89-90%, placed on 2 LNC and spo2
improved to 97%, pt has home CPAP fo night time use; + BS x 4quadrants, abdomen soft non tender; pt voiding clear yellow urine via ford catheter; surgical sites maintained; right IJ cordis and PIV maintained; CHG bath provided, new tele leads and
gown placed; ford care provided; call javier within reach; will continue to monitor.
[2023-07-03 21:40] LABS: Glucose - Point of Care 183 mg/dl (70-99)
[2023-07-03] MEDS: APRESOLINE 5 MG IV (21:51)
[2023-07-03 22:01] LABS: Blood Urea Nitrogen 34 mg/dl (7-17); Calcium 8.7 mg/dl (8.4-10.2); Carbon Dioxide 29 mmol/L (22-30); Chloride 99 mmol/L (98-107); Estimated Creatinine Clearance 68 ml/min; Glucose 161 mg/dl (70-99); Potassium 3.4 mmol/L (3.5-5.1); Sodium 136 mmol/L (135-145); eGFR > 60.00
--- NOTE | 2023-07-03 22:30 | RESPNOTE ---
assisted pt with own cpap device
[2023-07-03] MEDS: KCL 50 IV (23:03)
[2023-07-04] VITALS (17 sets, daily range): BP systolic 129–198; BP diastolic 61–113; PULSE 81; O2SAT 94; BMI 44.9
--- NOTE | 2023-07-04 | PTCARENOTE ---
Pt assessment unchanged; RT place pt on home CPAP machine; pt's BP continues to be high, CVPA aware, Hydralazine ordered; call javier within reach; will continue to monitor.
[2023-07-04] MEDS: APRESOLINE 5 MG IV (00:37)
[2023-07-04 03:17] LABS: Hematocrit 31.9 % (37.0-47.0); Hemoglobin 11.1 g/dL (12.0-16.0); Mean Corp Hgb Conc. 34.8 g/dL (33.0-37.0); Mean Corpuscular Hgb 31.1 pg (27.0-31.0); Mean Corpuscular Volume 89.4 fL (81.0-99.0); Mean Platelet Volume 10.3 fL (7.4-10.4); Platelet Count 157 10^3/uL (130-400); Red Blood Cell Count 3.57 10^6/uL (4.20-5.40); Red Cell Dist. Width 14.6 % (11.5-14.5); White Blood Cell Count 13.1 10^3/uL (4.8-10.8)
[2023-07-04] MEDS: NORVASC 5 MG PO (03:18)
--- NOTE | 2023-07-04 03:23 | PTCARENOTE ---
Pt's HTN persists despite a total of 10mg of hydralazine; CVPA requested that 0800 dose of Norvasc be given now. Pt is relaxed in bed, no complaints of pain or discomfort. will continue to monitor.
[2023-07-04 03:37] LABS: Blood Urea Nitrogen 34 mg/dl (7-17); Calcium 8.6 mg/dl (8.4-10.2); Carbon Dioxide 31 mmol/L (22-30); Chloride 101 mmol/L (98-107); Estimated Creatinine Clearance 76 ml/min; Glucose 115 mg/dl (70-99); Potassium 3.7 mmol/L (3.5-5.1); Sodium 139 mmol/L (135-145); eGFR > 60.00
[2023-07-04] MEDS: TYLENOL 1000 MG PO ×3 (05:10→22:16)
[2023-07-04] MEDS: KCL 40 MEQ PO ×2 (05:11→20:28)
[2023-07-04] MEDS: LOPRESSOR 5 MG IV (05:16)
--- NOTE | 2023-07-04 05:30 | PTCARENOTE ---
Due to rhythm change, EKG obtained showing Afib with RVR; CVPA aware and 5mg IV Lopressor ordered and given; K+ was also low, AM PO potassium was given per CVPA.
--- NOTE | 2023-07-04 05:54 | W.PN.CT ---
Addendum entered and electronically signed by Cresencio Brown MD 07/04/23 08:01:
I saw and examined the patient.
The PA's note was reviewed and I agree with the note.
Comment:
POD#4
AF overnight treated w/ IV lopressor & amio protocol - remains in rate-controlled AF in 80s
Started on norvasc and coreg for HTN
For PPM lead revision on Thursday
Continue diruesis - follow daily CXR, may require thoracentesis
Original Note:
Today's Communication / Plan
-
-pod #4
-went into a-fib 110s @ 4:50 am with BP 186/85 - gave 5 iv Lopressor, repleted K
-hypertensive overnight 160s-180s - no response to iv Hydralazine x2, gave po Norvasc early
-Dobut dcd 07/02 am.
-s/p Echo 07/02: EF 50%, no MR, peak/mean MV grad 12/4 mm/Hg. Mild TR. Mild-mod AI (previously mild)
-diuresed well with 80 iv bid Lasix on 07/02 (UO 2350/3320 in 12/24 hrs)
-holding BB and Amio (was on Sotalol and Cardizem preop)
-plans for a-lead revision on 07/05. Holding Pradaxa until then
-on sq Heparin for DVT prophylaxis
-continue PT/OT. Will need rehab at discharge
-appreciate everyone's input
-encourage IS, OOB
Assessment / Plan
-
Assessment:
-S/P Chordal sparing mitral valve replacement [27 mm bioprosthetic]/Tricuspid valve repair [28 mm band annuloplasty]/Biatrial MAZE using cryo ablation/Left atrial appendage exclusion [35 mm clip]/Intraoperative interrogation and setting of
pre-existing PPM, by Dr. Claros on 06/30/23, pod#4
-Severe mitral valve insufficiency [mixed pathology combination of type I�atrial functional, and sclerotic anterior posterior leaflets]
-Moderate TR
-Mild AI
-A-fib with sick sinus syndrome S/P Cardioversion (02/2017), PPM placement (06/2016)- on Pradaxa, Sotalol, and Cardizem preop
-LVEF 50-55% per intraop KARL
-Recent diastolic CHF, 04/2023
-Recent PNA, 04/2023
-MRSA+ (nasal swab on 06/24/23)
-Recent E. Coli UTI (06/24/23, treated with Macrobid)
-LIZBETH (uses CPAP)
-Orthopnea
-HTN/Hyperlipidemia
-T2DM (A1C 6.4)
-CKD 3a (Cr 1.2 preop)
-Class 3 obesity (BMI 44)
-GERD
-Hx DVT/PE (2012)
-Gout
-Lymphedema
-Venous stasis
-Ambulatory dysfunction (uses walker)
-Hx endometrial ca S/P CHELITA with XRT
-S/P D&C
-S/P Carpal tunnel
-S/P B/L Cataracts
-S/P Herniorrhaphy
-S/P Tonsillectomy
-Acute postop blood loss/Anemia (stable without blood transfusion)
-Acute postop thrombocytopenia (stable without active bleed)
-Acute postop atelectasis/pleural effusion
-Acute postop hypovolemia with subsequent hypervolemia
-Acute postop cardiogenic shock, requiring dobutamine gtt
-Acute postop hypermagnesemia
-Acute postop atrial lead malfunction - plans for lead revision on Mon 07/05
-Acute postop a-fib 110s- tx with iv Lopressor
Echo 07/03/23:
-Normal left ventricular size and wall thickness with low normal LV ejection fraction. Left ventricular ejection fraction visually estimated 50%
-Pacer wire seen in right atrium and ventricle
-In limited views, right ventricle systolic function is preserved
-s/p Chordal sparing mitral valve replacement [27 mm bioprosthetic], 06/30/23. No mitral regurgitation is seen. Peak/mean gradients across the mitral valve are 12/4 mmHg.
-Trileaflet, sclerotic aortic valve with mild to moderate aortic regurgitation
-Tricuspid valve repair with 28 mm band Annuloplasty, 06/30/23. Mild tricuspid regurgitation. Estimated pulmonary artery pressure of 35-40 mmHg assuming a right atrial pressure of 3 mmHg.
-Mild to moderate pulmonic regurgitation
-Prominent anterior fat pad with no significant pericardial effusion
-When compared to intraoperative KARL dated 06/30/2023, LV ejection fraction previously reported low normal at 50-55%. Mean mitral valve gradient following implant of bioprosthetic mitral valve was 2 mmHg with no significant
regurgitation. Aortic regurgitation previously graded mild.
Discussed patient care with: Nursing and Care Team
Subjective
Procedure
-S/P Chordal sparing mitral valve replacement [27 mm bioprosthetic]/Tricuspid valve repair [28 mm band annuloplasty]/Biatrial MAZE using cryo ablation/Left atrial appendage exclusion [35 mm clip]/Intraoperative interrogation and setting of
pre-existing PPM, by Dr. Claros, 06/30/23, pod#1
-
Date of Service: July 04, 2023
Objective Data
-
PT 15.0 Sec (11.4-14.6) H 07/01/23 00:13
INR 1.20 07/01/23 00:13
APTT 36.2 Sec (23.4-35.0) H 06/30/23 11:21
Vital Signs
Vital Signs
Temp Pulse Resp BP Pulse Ox
99.8 F 79 18 171/90 97
07/03/23 20:00 07/03/23 20:03 07/03/23 20:00 07/03/23 20:03 07/03/23 20:00
CT Intake/Output/Weight
07/03/23 07/03/23 07/04/23
06:59 18:59 06:59
Intake Total 422.6 / 622.6 200 / 622.6
Output Total 830 / 2440 990 / 2190 1200 / 2190
Balance -830 / -563.7 -567.4 / -1567.4 -1000 / -1567.4
SaO2: 97
[2023-07-04] MEDS: CORDARONE 103 MG IV (07:31)
[2023-07-04 07:38] LABS: Glucose - Point of Care 162 mg/dl (70-99)
[2023-07-04] MEDS: CORDARONE 518 MG IV (07:38)
--- NOTE | 2023-07-04 07:45 | PTCARENOTE ---
Received pt from shift foreman RN; pt AAOx3 and resting comfortably in chair; A-fib on monitor and VSS: RIJ Cordis and PIV x1 patent; Amiodarone bolus and drip started; Lungs diminished; IS to 500 educated pt on IS; positive bowel sounds; Pena
Catheter draining yellow urine; weak radials and lower extremity pulses; no edema noted; surgical site C/D/I; see nursing documentation for further details.
[2023-07-04] MEDS: PRANDIN 2 MG PO ×3 (08:10→17:50)
[2023-07-04] MEDS: THERAGRAN 1 TABLET PO (08:11)
[2023-07-04] MEDS: MAGNESIUM OXIDE 500 MG PO ×2 (08:11→20:28)
[2023-07-04] MEDS: NEURONTIN 100 MG PO ×3 (08:11→22:17)
[2023-07-04] MEDS: PACERONE 200 MG PO ×3 (08:11→22:17)
[2023-07-04] MEDS: DULCOLAX 5 MG PO (08:11)
[2023-07-04] MEDS: LOW STRENGTH ASPIRIN 81 MG PO (08:11)
[2023-07-04] MEDS: SENOKOT-S 1 TABLET PO ×2 (08:11→20:29)
[2023-07-04] MEDS: LASIX 80 MG PO ×2 (08:11→15:31)
[2023-07-04] MEDS: VITAMIN C 500 MG PO (08:11)
[2023-07-04] MEDS: CLARITIN 10 MG PO (08:11)
[2023-07-04] MEDS: PROTONIX 40 MG PO (08:11)
[2023-07-04] MEDS: HEPARIN 5000 UNITS SC ×2 (08:12→15:31)
[2023-07-04] MEDS: VITAMIN B-12 1000 MCG PO (08:12)
[2023-07-04] MEDS: NOVOLOG FLEXPEN-MODERATE RESISTANCE 1 UNITS SC ×2 (08:12→12:54)
[2023-07-04] MEDS: BACTROBAN 2% OINTMENT 1 APPLIC NASAL (08:12)
[2023-07-04] MEDS: COREG 3.125 MG PO ×2 (08:12→20:29)
[2023-07-04] MEDS: LIDOCAINE 4% PATCH 1 PATCH TOPICAL (08:14)
--- NOTE | 2023-07-04 10:26 | W.PN.CARDCBS ---
Today's Communication / Plan
-
Back in A-fib this morning. Continue IV amiodarone and carvedilol.
Right atrial lead is not capturing. Will need lead revision on Thursday.
Echo from yesterday reveals stable mitral valve replacement and tricuspid valve repair.
Continue diuresis
Will eventually restart Pradaxa post pacemaker revision.
Impression / Plan
-
Primary Electronic Specialist: Dr. Hiren Peters of [facility]
Assessment:
symptomatic mod to severe MR s/p biopros MVR, TV repair, MAZE, HARVINDER clip 06/30/23
admission to [facility] 04/2023 for CHF exacerbation
SSS s/p [employer] DC PPM 2016
persistent afib on chronic sotalol and pradaxa therapy
chronic diastolic CHF
HTN
HLD
NIDDM
NSVT
obesity
chronic venous insufficiency/chronic lymphedema
TTE 04/27/2023 at [facility]: EF 55 to 60%, normal RV function, moderate to severe eccentric AL
KARL 04/29/23 at [facility]: Moderately severe dilated left atrium, moderately dilated right atrium, moderate to severe eccentric AL with moderate TI, EF felt to be mildly reduced visually
Echocardiogram July 03, 2023, EF 50%, status post mitral valve replacement with no MR and mean gradient of 4, mild to moderate aortic regurgitation, status post tricuspid valve repair with mild TR. PA pressure 35-40. No significant pericardial
effusion.
Plan:
-s/p biopros MVR, TV repair, MAZE, HARVINDER clip 06/30/23
-off dobutamine
-Echo from yesterday overall stable with EF 50% and stable mitral valve replacement and tricuspid valve repair.
-Right atrial lead is not capturing. Will proceed with require RA lead revision early next week likely Thursday. Continue to hold Pradaxa for now.
-currently set at DDD@70
-holding on pradaxa until post PPM. HARVINDER without flow by intra op KARL
-Back in A-fib this morning. Continue IV amiodarone and oral amiodarone. Continue Coreg.
-intraop KARL with EF 50-55%, no paravalvular leak noted, mean gradient 2mmHg, TR improved to mild, rhythm paced
-continue diuresis with IV Lasix. Creatinine stable at 0.8.
-continue post op care
-OP follow up with Dr. Peters
-d/w nursing
Progress Note - Electronic Specialist
Subjective
Date of Service: July 04, 2023
Went into A-fib and now is on IV amiodarone. Had palpitations.
Objective
Labs:
07/04/23 02:48
Labs
Hgb 11.1 g/dL (12.0-16.0) L 07/04/23 02:48
Hct 31.9 % (37.0-47.0) L 07/04/23 02:48
Plt Count 157 10^3/uL (130-400) D 07/04/23 02:48
PT 15.0 Sec (11.4-14.6) H 07/01/23 00:13
INR 1.20 07/01/23 00:13
APTT 36.2 Sec (23.4-35.0) H 06/30/23 11:21
Sodium 139 mmol/L (135-145) 07/04/23 02:48
Potassium 3.7 mmol/L (3.5-5.1) 07/04/23 02:48
BUN 34 mg/dl (7-17) H 07/04/23 02:48
Creatinine 0.8 mg/dL (0.6-1.0) 07/04/23 02:48
Glucose 115 mg/dl (70-99) H 07/04/23 02:48
Vital Signs and I&O:
Vital Signs
Temp Pulse Resp BP Pulse Ox
98.8 F 87 20 129/91 93
07/04/23 08:00 07/04/23 08:22 07/04/23 08:00 07/04/23 08:22 07/04/23 09:10
Vital Signs
Temp Pulse Resp BP Pulse Ox
98.8 F 87 20 129/91 93
07/04/23 08:00 07/04/23 08:22 07/04/23 08:00 07/04/23 08:22 07/04/23 09:10
Intake & Output
07/02/23 07/03/23 07/04/23 07/05/23
06:59 06:59 06:59 06:59
Intake Total 2117.6 / 2117.6 1876.3 / 1876.3 682.6 / 682.6 173.2 / 173.2
Output Total 2300 / 2300 2440 / 2440 3615 / 3615 500 / 500
Balance -182.4 / -182.4 -563.7 / -563.7 -2932.4 / -2932.4 -326.8 / -326.8
Physical Exam
Physical Exam
GEN: No distress, awake, Ox3
HEENT: supple, anicteric, mmm
LUNGS: CTA, no wheezes/rales
CV: Irreg, S1/S2, 1/6 syst LSB, no gallop
ABD: soft, BS+, NT/ND
EXT: No edema
NEURO: Gross non-focal
SKIN: sternotomy
[2023-07-04] MEDS: NSS IV (11:24)
[2023-07-04 11:32] LABS: Blood Urea Nitrogen 33 mg/dl (7-17); Calcium 8.5 mg/dl (8.4-10.2); Carbon Dioxide 31 mmol/L (22-30); Chloride 98 mmol/L (98-107); Estimated Creatinine Clearance 75 ml/min; Glucose 226 mg/dl (70-99); Potassium 3.7 mmol/L (3.5-5.1); Sodium 135 mmol/L (135-145); eGFR > 60.00
[2023-07-04 12:31] LABS: Glucose - Point of Care 199 mg/dl (70-99)
--- NOTE | 2023-07-04 12:32 | PTCARENOTE ---
Assessment unchanged; A-fib on monitor and VSS; Pena Catheter removed per [facility] [employer] order.
--- NOTE | 2023-07-04 16:13 | PTCARENOTE ---
A-fib on monitor and VSS: assessment unchanged; pt resting comfortably in chair.
[2023-07-04 17:42] LABS: Glucose - Point of Care 256 mg/dl (70-99)
[2023-07-04] MEDS: NOVOLOG FLEXPEN-MODERATE RESISTANCE 5 UNITS SC (17:50)
--- NOTE | 2023-07-04 20:30 | PTCARENOTE ---
Assumed care of pt from sweetie RN. Pt AAOx3. W/ assist x2, pt moved out of the chair and into bed. A-fib on the monitor w/ A/V pacing from PPM. BP elevated - 177/61. Weakly palpable pulses throughout. Trace edema throughout. +1 LE edema. Pt on RA.
POX 93-95%. Lung sounds diminished. Coughing and deep breathing encouraged. CT dressing changed. Abdomen soft/nontender. +BS Pure-wick catheter in place. Pt voiding yellow urine. Right IJ cordis CDI. Amiodarone infusing as ordered. Sternal incision
approximated and open to air. No c/o pain at this time. See worklist for full nursing assessment, VS, I&O, and interventions. Call javier within reach of pt.
[2023-07-04 22:20] LABS: Glucose - Point of Care 198 mg/dl (70-99)
[2023-07-04] MEDS: NOVOLOG FLEXPEN 2 UNITS SC (22:38)
[2023-07-05] VITALS (17 sets, daily range): BP systolic 92–178; BP diastolic 38–112; PULSE 110; BMI 44.7
[2023-07-05] MEDS: HEPARIN 5000 UNITS SC ×3 (00:10→17:13)
--- NOTE | 2023-07-05 00:17 | PTCARENOTE ---
Previous assessment unchanged. Pt a-fib on the monitor w/ A/V pacing. HR 70s. BP 165/83. Pt using home CPAP machine. POX 93-95%. Pure-wick catheter in place. Pt voiding yellow urine. Dobutamine infusing as ordered. All surgical sites stable. No c/o
pain at this time. Call javier within reach.
--- NOTE | 2023-07-05 04:43 | PTCARENOTE ---
Previous assessment unchanged. Pt A-fib on the monitor w/ occasional A and V pacer spikes. BP 154/91. Pt using home CPAP machine. POX 93-94%. Pure-wick catheter maintained. Pt voiding yellow urine. All surgical sites stable. Pt denies pain at this
time. Labs drawn and sent. Call javier within reach.
--- NOTE | 2023-07-05 04:58 | W.PN.CT ---
Addendum entered and electronically signed by Cresencio Brown MD 07/05/23 08:26:
I saw and examined the patient.
The PA's note was reviewed and I agree with the note.
Comment:
POD#5
Doing well. Remains in rate-controlled AF
A-lead PPM revision on Thursday
Slightly improved aeration on CXR today - continue to encourage IS/OOB/ambulation
Original Note:
Today's Communication / Plan
-
-pod #5
-predominantly paced but still appears to have underlying fib, remains on amio gtt
-s/p Echo 07/02: EF 50%, no MR, peak/mean MV grad 12/4 mm/Hg. Mild TR. Mild-mod AI (previously mild)
-Coreg added 3.125 mg
-diuresed well with 80 mg Lasix BID on 07/02 and 07/03 (UO 950/1200 in 12/24 hrs)
-plans for a-lead revision on 07/05. Holding Pradaxa until then
-Continue ASA, protonix, atorvastatin, amlodipine
-on sq Heparin for DVT prophylaxis
-continue PT/OT. Will need rehab at discharge
-appreciate everyone's input
-encourage IS, OOB
Assessment / Plan
-
Assessment:
-S/P Chordal sparing mitral valve replacement [27 mm bioprosthetic]/Tricuspid valve repair [28 mm band annuloplasty]/Biatrial MAZE using cryo ablation/Left atrial appendage exclusion [35 mm clip]/Intraoperative interrogation and setting of
pre-existing PPM, by Dr. Claros on 06/30/23, pod#5
-Severe mitral valve insufficiency [mixed pathology combination of type I�atrial functional, and sclerotic anterior posterior leaflets]
-Moderate TR
-Mild AI
-A-fib with sick sinus syndrome S/P Cardioversion (02/2017), PPM placement (06/2016)- on Pradaxa, Sotalol, and Cardizem preop
-LVEF 50-55% per intraop KARL
-Recent diastolic CHF, 04/2023
-Recent PNA, 04/2023
-MRSA+ (nasal swab on 06/24/23)
-Recent E. Coli UTI (06/24/23, treated with Macrobid)
-LIZBETH (uses CPAP)
-Orthopnea
-HTN/Hyperlipidemia
-T2DM (A1C 6.4)
-CKD 3a (Cr 1.2 preop)
-Class 3 obesity (BMI 44)
-GERD
-Hx DVT/PE (2012)
-Gout
-Lymphedema
-Venous stasis
-Ambulatory dysfunction (uses walker)
-Hx endometrial ca S/P CHELITA with XRT
-S/P D&C
-S/P Carpal tunnel
-S/P B/L Cataracts
-S/P Herniorrhaphy
-S/P Tonsillectomy
-Acute postop blood loss/Anemia (stable without blood transfusion)
-Acute postop thrombocytopenia (stable without active bleed)
-Acute postop atelectasis/pleural effusion
-Acute postop hypovolemia with subsequent hypervolemia
-Acute postop cardiogenic shock, requiring dobutamine gtt
-Acute postop hypermagnesemia
-Acute postop atrial lead malfunction - plans for lead revision on 07/05
-Acute postop a-fib 110s- tx with iv Lopressor
Echo 07/03/23:
-Normal left ventricular size and wall thickness with low normal LV ejection fraction. Left ventricular ejection fraction visually estimated 50%
-Pacer wire seen in right atrium and ventricle
-In limited views, right ventricle systolic function is preserved
-s/p Chordal sparing mitral valve replacement [27 mm bioprosthetic], 06/30/23. No mitral regurgitation is seen. Peak/mean gradients across the mitral valve are 12/4 mmHg.
-Trileaflet, sclerotic aortic valve with mild to moderate aortic regurgitation
-Tricuspid valve repair with 28 mm band Annuloplasty, 06/30/23. Mild tricuspid regurgitation. Estimated pulmonary artery pressure of 35-40 mmHg assuming a right atrial pressure of 3 mmHg.
-Mild to moderate pulmonic regurgitation
-Prominent anterior fat pad with no significant pericardial effusion
-When compared to intraoperative KARL dated 06/30/2023, LV ejection fraction previously reported low normal at 50-55%. Mean mitral valve gradient following implant of bioprosthetic mitral valve was 2 mmHg with no significant
regurgitation. Aortic regurgitation previously graded mild.
Subjective
Procedure
-S/P Chordal sparing mitral valve replacement [27 mm bioprosthetic]/Tricuspid valve repair [28 mm band annuloplasty]/Biatrial MAZE using cryo ablation/Left atrial appendage exclusion [35 mm clip]/Intraoperative interrogation and setting of
pre-existing PPM, by Dr. Claros, 06/30/23
-
Date of Service: July 05, 2023
No overnight events. Remains in predominantly paced rhythm, likely still with underlying afib. Received IV lasix 80 mg BID yesterday. Coreg started.
Objective Data
-
Lab Results
07/04/23 02:48
PT 15.0 Sec (11.4-14.6) H 07/01/23 00:13
INR 1.20 07/01/23 00:13
APTT 36.2 Sec (23.4-35.0) H 06/30/23 11:21
Vital Signs
Vital Signs
Temp Pulse Resp BP Pulse Ox
97.8 F 78 16 154/91 94
07/05/23 04:16 07/05/23 04:16 07/05/23 04:16 07/05/23 04:16 07/05/23 04:16
CT Intake/Output/Weight
07/04/23 07/04/23 07/05/23
06:59 18:59 06:59
Intake Total 260 / 682.6 386.6 / 626.9 240.3 / 626.9
Output Total 2625 / 3615 1200 / 2150 950 / 2150
Balance -2365 / -2932.4 -813.4 / -1523.1 -709.7 / -1523.1
SaO2: 94
Physical Exam
-
General: Awake and Oriented
Cardiovascular: Irregular rate & rhythm, No Rub, No Gallop and Other (? systolic murmur)
Respiratory: Clear and Decreased Breath Sounds
Sternum: Stable
Incision: Clean, Dry and Intact
Extremities: Edema +1 and Other (chronic brown discoloration of distal lower extremities)
Data Reviewed
-
Lab Results: Results Reviewed
Medications: Active Meds Reviewed
Chest X-Ray: Report Reviewed
ECG: Report Reviewed
[2023-07-05] MEDS: NSS 500 IV (05:00)
[2023-07-05] MEDS: CORDARONE 518 MG IV (05:00)
[2023-07-05 05:10] LABS: Blood Urea Nitrogen 34 mg/dl (7-17); Calcium 8.5 mg/dl (8.4-10.2); Carbon Dioxide 30 mmol/L (22-30); Chloride 99 mmol/L (98-107); Estimated Creatinine Clearance 67 ml/min; Glucose 121 mg/dl (70-99); Magnesium 2.1 mg/dl (1.6-2.3); Potassium 3.7 mmol/L (3.5-5.1); Sodium 136 mmol/L (135-145); eGFR > 60.00
[2023-07-05] MEDS: TYLENOL 1000 MG PO ×3 (06:34→22:36)
[2023-07-05 07:59] LABS: Glucose - Point of Care 165 mg/dl (70-99)
[2023-07-05] MEDS: NOVOLOG FLEXPEN-MODERATE RESISTANCE 1 UNITS SC ×2 (08:14→13:01)
[2023-07-05] MEDS: THERAGRAN 1 TABLET PO (08:20)
[2023-07-05] MEDS: NEURONTIN 100 MG PO ×3 (08:20→22:36)
[2023-07-05] MEDS: VITAMIN B-12 1000 MCG PO (08:20)
[2023-07-05] MEDS: LOW STRENGTH ASPIRIN 81 MG PO (08:20)
[2023-07-05] MEDS: PROTONIX 40 MG PO (08:20)
[2023-07-05] MEDS: VITAMIN C 500 MG PO (08:20)
[2023-07-05] MEDS: PRANDIN 2 MG PO ×3 (08:20→17:13)
[2023-07-05] MEDS: CLARITIN 10 MG PO (08:24)
[2023-07-05] MEDS: SENOKOT-S PO ×2 (08:24→20:46)
[2023-07-05] MEDS: LIDOCAINE 4% PATCH TOPICAL (08:26)
[2023-07-05] MEDS: MAGNESIUM OXIDE 500 MG PO ×2 (09:08→20:46)
[2023-07-05] MEDS: COREG 3.125 MG PO ×2 (09:08→20:46)
[2023-07-05] MEDS: LASIX 80 MG PO ×2 (09:09→17:13)
[2023-07-05] MEDS: PACERONE 200 MG PO ×3 (09:09→22:36)
[2023-07-05] MEDS: NORVASC 5 MG PO (09:09)
[2023-07-05] MEDS: KCL 40 MEQ PO ×2 (09:10→20:46)
[2023-07-05 13:05] LABS: Glucose - Point of Care 170 mg/dl (70-99)
[2023-07-05] MEDS: NORVASC 2.5 MG PO (14:29)
[2023-07-05 17:01] LABS: Glucose - Point of Care 204 mg/dl (70-99)
[2023-07-05] MEDS: NOVOLOG FLEXPEN-MODERATE RESISTANCE 3 UNITS SC (18:16)
--- NOTE | 2023-07-05 20:00 | PTCARENOTE ---
Assumed care of pt from sweetie RN. Pt AAOx3. Pt intermittently A/V paced on the monitor. HR 80-90s. BP stable. Weakly palpable pulses throughout. Trace edema throughout. +1 LE edema. Pt on RA. POX 95%. Lung sounds diminished. Coughing and deep
breathing encouraged. CT dressing CDI. Abdomen soft/nontender. +BS Pure-wick catheter in place. Pt voiding yellow urine. Right IJ cordis CDI. Sternal incision approximated and open to air. No c/o pain at this time. See worklist for full nursing
assessment, VS, I&O, and interventions. Call javier within reach of pt.
--- NOTE | 2023-07-05 21:14 | PTCARENOTE ---
Patient care assumed from nightshift RN. Patient out of bed in chair. Fully alert and oriented. Pt in Afib. PPM inappropriately firing, awaiting revision tomorrow. BP elevated, covered by scheduled medications. lasix 80mg PO x2 doses given today, pt
voiding with assistance of luisa. Pt on room air with dyspnea on exertion but maintaining O2 sats around 95%. I.S encouraged and frequent ambulation encouraged. Pt worked with PT and ambulated down hallway with rolling walker. RIJ cordis intact,
amio gtt discontinued, pt receiving PO dose. Sternal incision IRVIN and clean/dry/intact. Chest tube insertion site dressing clean/dry/intact.
[2023-07-06] VITALS (16 sets, daily range): BP systolic 104–169; BP diastolic 52–101; PULSE 92–102; O2SAT 94–95; BMI 44.3
[2023-07-06] MEDS: HEPARIN 5000 UNITS SC ×4 (00:33→23:28)
[2023-07-06 00:38] LABS: Glucose - Point of Care 174 mg/dl (70-99)
--- NOTE | 2023-07-06 00:40 | PTCARENOTE ---
Previous assessment unchanged. Pt having A/V pacing on the monitor. HR 80s. BP 157/91. Assisted pt w/ putting on home CPAP machine.
POX 93-95%. All surgical sites stable. No c/o pain at this time. Call javier within reach.
--- NOTE | 2023-07-06 04:03 | PTCARENOTE ---
Previous assessment unchanged. Pt intermittently A and V paced on the monitor. HR 70-80s. BP 151/72. All surgical sites stable. Pt voiding via pure-wick catheter. No c/o pain at this time. Pt using home CPAP device. POX 95%. Pt NPO since midnight
for A-lead PPM revision later this morning. Call javier within reach.
[2023-07-06 04:04] LABS: Hematocrit 31.6 % (37.0-47.0); Hemoglobin 10.7 g/dL (12.0-16.0); Mean Corp Hgb Conc. 33.9 g/dL (33.0-37.0); Mean Corpuscular Volume 94.6 fL (81.0-99.0); Mean Platelet Volume 10.3 fL (7.4-10.4); Platelet Count 153 10^3/uL (130-400); Red Blood Cell Count 3.34 10^6/uL (4.20-5.40); Red Cell Dist. Width 15.2 % (11.5-14.5); White Blood Cell Count 9.6 10^3/uL (4.8-10.8)
[2023-07-06 04:29] LABS: Blood Urea Nitrogen 40 mg/dl (7-17); Calcium 8.7 mg/dl (8.4-10.2); Carbon Dioxide 35 mmol/L (22-30); Chloride 97 mmol/L (98-107); Estimated Creatinine Clearance 75 ml/min; Glucose 155 mg/dl (70-99); Magnesium 2.2 mg/dl (1.6-2.3); Potassium 3.7 mmol/L (3.5-5.1); Sodium 139 mmol/L (135-145); eGFR > 60.00
--- NOTE | 2023-07-06 04:41 | W.PN.CT ---
Addendum entered and electronically signed by Dia Carbajal PA-C 07/06/23 10:08:
additional diagnoses:
- Preoperative SANA
- hyponatremia
Original Note:
Today's Communication / Plan
-
-pod #6
-predominantly paced but still appears to have underlying afib
-NPO for PPM revision today
-IR consulted for thoracentesis today
-s/p Echo 07/02: EF 50%, no MR, peak/mean MV grad 12/4 mm/Hg. Mild TR. Mild-mod AI (previously mild)
-Coreg added 3.125 mg, now off amio gtt. UOP 1700/2450 in 12/24 hrs
-diuresed well with 80 mg Lasix BID on 07/02 and 07/03, to continue for now
-plans for a-lead revision on Mon 07/05. Holding Pradaxa until then
-Continue ASA, protonix, atorvastatin, amlodipine increased to 7.5 mg
-on sq Heparin for DVT prophylaxis
-continue PT/OT. Will need rehab at discharge
-appreciate everyone's input
-encourage IS, OOB
Assessment / Plan
-
Assessment:
-S/P Chordal sparing mitral valve replacement [27 mm bioprosthetic]/Tricuspid valve repair [28 mm band annuloplasty]/Biatrial MAZE using cryo ablation/Left atrial appendage exclusion [35 mm clip]/Intraoperative interrogation and setting of
pre-existing PPM, by Dr. Claros on 06/30/23, pod#6
-Severe mitral valve insufficiency [mixed pathology combination of type I�atrial functional, and sclerotic anterior posterior leaflets]
-Moderate TR
-Mild AI
-A-fib with sick sinus syndrome S/P Cardioversion (02/2017), PPM placement (06/2016)- on Pradaxa, Sotalol, and Cardizem preop
-LVEF 50-55% per intraop KARL
-Recent diastolic CHF, 04/2023
-Recent PNA, 04/2023
-MRSA+ (nasal swab on 06/24/23)
-Recent E. Coli UTI (06/24/23, treated with Macrobid)
-LIZBETH (uses CPAP)
-Orthopnea
-HTN/Hyperlipidemia
-T2DM (A1C 6.4)
-CKD 3a (Cr 1.2 preop)
-Class 3 obesity (BMI 44)
-GERD
-Hx DVT/PE (2012)
-Gout
-Lymphedema
-Venous stasis
-Ambulatory dysfunction (uses walker)
-Hx endometrial ca S/P CHELITA with XRT
-S/P D&C
-S/P Carpal tunnel
-S/P B/L Cataracts
-S/P Herniorrhaphy
-S/P Tonsillectomy
-Acute postop blood loss/Anemia (stable without blood transfusion)
-Acute postop thrombocytopenia (stable without active bleed)
-Acute postop atelectasis/pleural effusion
-Acute postop hypovolemia with subsequent hypervolemia
-Acute postop cardiogenic shock, requiring dobutamine gtt
-Acute postop hypermagnesemia
-Acute postop atrial lead malfunction - plans for lead revision on Mon 07/05
-Acute postop a-fib 110s- tx with iv Lopressor
Echo 07/03/23:
-Normal left ventricular size and wall thickness with low normal LV ejection fraction. Left ventricular ejection fraction visually estimated 50%
-Pacer wire seen in right atrium and ventricle
-In limited views, right ventricle systolic function is preserved
-s/p Chordal sparing mitral valve replacement [27 mm bioprosthetic], 06/30/23. No mitral regurgitation is seen. Peak/mean gradients across the mitral valve are 12/4 mmHg.
-Trileaflet, sclerotic aortic valve with mild to moderate aortic regurgitation
-Tricuspid valve repair with 28 mm band Annuloplasty, 06/30/23. Mild tricuspid regurgitation. Estimated pulmonary artery pressure of 35-40 mmHg assuming a right atrial pressure of 3 mmHg.
-Mild to moderate pulmonic regurgitation
-Prominent anterior fat pad with no significant pericardial effusion
-When compared to intraoperative KARL dated 06/30/2023, LV ejection fraction previously reported low normal at 50-55%. Mean mitral valve gradient following implant of bioprosthetic mitral valve was 2 mmHg with no significant
regurgitation. Aortic regurgitation previously graded mild.
Subjective
Procedure
-S/P Chordal sparing mitral valve replacement [27 mm bioprosthetic]/Tricuspid valve repair [28 mm band annuloplasty]/Biatrial MAZE using cryo ablation/Left atrial appendage exclusion [35 mm clip]/Intraoperative interrogation and setting of
pre-existing PPM, by Dr. Claros, 06/30/23
-
Date of Service: July 06, 2023
No overnight events. NPO today for PPM revision, also ordered to get a thoracentesis. Off amio gtt. BP elevated.
Objective Data
-
Lab Results
07/06/23 03:57
07/06/23 03:57
PT 15.0 Sec (11.4-14.6) H 07/01/23 00:13
INR 1.20 07/01/23 00:13
APTT 36.2 Sec (23.4-35.0) H 06/30/23 11:21
Vital Signs
Vital Signs
Temp Pulse Resp BP Pulse Ox
98 F 77 16 151/72 95
07/06/23 03:52 07/06/23 04:00 07/06/23 03:52 07/06/23 03:52 07/06/23 03:52
CT Intake/Output/Weight
07/05/23 07/05/23 07/06/23
06:59 18:59 06:59
Intake Total 293.7 / 680.3 633.4 / 693.4 60 / 693.4
Output Total 1050 / 2250 750 / 2450 1700 / 2450
Balance -756.3 / -1569.7 -116.6 / -1756.6 -1640 / -1756.6
SaO2: 95
Physical Exam
-
General: Awake, Oriented and AOx3
Cardiovascular: Irregular rate & rhythm and No Murmurs
Respiratory: Clear and Decreased Breath Sounds
Sternum: Stable
Incision: Clean, Dry and Intact
Extremities: Edema +1 (chronic brown discoloration to b/l LE, no open wounds/sores)
Data Reviewed
-
Lab Results: Results Reviewed
Medications: Active Meds Reviewed
Chest X-Ray: Report Reviewed
ECG: Report Reviewed
[2023-07-06] MEDS: TYLENOL 1000 MG PO ×2 (06:33→23:27)
--- NOTE | 2023-07-06 07:45 | PTCARENOTE ---
Received pt from printed circuit board assembler RN; pt AAOX3 and resting comfortably in chair; A-fib, A-V pacing 25 % on monitor and VSS; Lungs diminished; positive bowel sounds; pt voiding clear yellow urine; weak radial and lower extremity pulses; trace generalized
edema noted; surgical site C/D/I; Pt NPO for pace maker procedure today; see nursing documentation for further details.
[2023-07-06] MEDS: KCL 40 MEQ PO ×2 (08:01→20:03)
[2023-07-06] MEDS: NORVASC 7.5 MG PO (08:02)
[2023-07-06] MEDS: COREG 3.125 MG PO ×2 (08:02→20:03)
[2023-07-06] MEDS: LOW STRENGTH ASPIRIN 81 MG PO (08:02)
[2023-07-06] MEDS: PACERONE 200 MG PO ×3 (08:03→23:27)
[2023-07-06 08:11] LABS: Glucose - Point of Care 170 mg/dl (70-99)
[2023-07-06] MEDS: LIDOCAINE 4% PATCH TOPICAL (08:42)
[2023-07-06] MEDS: PRANDIN PO ×2 (08:42→12:21)
[2023-07-06] MEDS: NOVOLOG FLEXPEN-MODERATE RESISTANCE SC ×2 (08:42→12:20)
[2023-07-06] MEDS: NEURONTIN PO (08:51)
[2023-07-06] MEDS: CLARITIN PO (08:55)
[2023-07-06] MEDS: SENOKOT-S PO (08:56)
[2023-07-06] MEDS: MAGNESIUM OXIDE PO (08:56)
[2023-07-06] MEDS: PROTONIX PO (08:56)
[2023-07-06] MEDS: THERAGRAN PO (08:57)
[2023-07-06] MEDS: VITAMIN C PO (08:57)
[2023-07-06] MEDS: VITAMIN B-12 PO (08:57)
--- NOTE | 2023-07-06 09:02 | PN.CDI ---
CDI
- -
CDI:
Physician Documentation Request
Admit Date: 06/30/23 05:13
Dear Doctor Hyacinth/MADI,
Please review the following and provide your response in the progress notes.
Clinical Indicators:
Pt admitted for MVR s/p MAZE /MVR on 06/29 /With Cardiogenic shock post op on Dobutamine
Pt wth Hx of Chronic diastolic CHF on 40 mg PO Lasix BID at home
CXR 07/02, ' . Mild pulmonary vascular congestion...'
CT surgery progress note 07/03, ' Continue diuresis - follow daily CXR, may require thoracentesis ...diuresed well with 80 iv bid Lasix on 07/02 ...'
Per MAR did get IV Lasix 40 mg on 06/30, IV Lasix 40 mg x 2 on 07/01 started on 40 my PO BID on and then changed to 80 MG PO Lasix on 07/02.
ECHO 07/02, ' Left ventricular ejection fraction visually estimated 50%..'
Clarify which of the following accurately represents the acuity of the ( Diastolic CHF ).
Acute on Chronic
Chronic only
Other
Use of terms such as suspected, likely, concern for, or probable (associated with a specific diagnosis that is being evaluated, monitored, or treated as if it exists) are acceptable and can be coded in the inpatient setting, when documented at the
time of discharge.
Thank you,
Meryl Nevarez RN
CDI Specialist
[facility]
Please use your independent medical judgment in providing your response.
[2023-07-06] MEDS: LASIX 80 MG PO ×2 (10:22→19:52)
[2023-07-06] MEDS: DIAMOX 125 MG PO ×2 (10:22→19:51)
[2023-07-06] MEDS: NSS IV (10:27)
--- NOTE | 2023-07-06 10:54 | CM ---
Chart reviewed. Patient is independent of ADLS, lives alone in a 3rd floor apartment, elevator access, ambulates with a rolling walker, has a hospital bed, shower bench, and CPAP machine. PT evaluation recommending SNF. [facility] Plan is for the patient to go to SNF when medically stable. CM to follow
[2023-07-06 12:14] LABS: Glucose - Point of Care 184 mg/dl (70-99)
--- NOTE | 2023-07-06 12:17 | PTCARENOTE ---
A-fib on monitor and VSS; assessment unchanged; pt remains NPO for pace maker procedure this afternoon.
[2023-07-06 14:03] LABS: Glucose - Point of Care 173 mg/dl (70-99)
[2023-07-06] MEDS: TYLENOL PO (14:37)
--- NOTE | 2023-07-06 16:02 | PTCARENOTE ---
Assessment unchanged; A-fib on monitor and VSS; awaiting EP lab.
--- NOTE | 2023-07-06 17:00 | PTCARENOTE ---
Pt sent to EP Lab with team and report given to RN.
--- NOTE | 2023-07-06 18:04 | ITS.CL.CARDI ---
Washtub Worker - Cardioversion
Cardioversion
Procedure Report:
CARDIOVERSION REPORT
DATE: July 06, 2023
Primary collections director: Dr. Hiren Peters, [facility]
INDICATION: Atrial fibrillation
She has a complex history which is included severe mitral regurgitation for which she underwent bioprosthetic mitral valve replacement as well as tricuspid valve repair, maze, left atrial clipping June 30, 2023. She has a remote history of
dual-chamber permanent pacemaker implantation in 2017. She has known persistent atrial fibrillation and has been treated with sotalol as an antiarrhythmic drug and Pradaxa for oral anticoagulation. She also has a history of heart failure with
reduced ejection fraction, hypertension, moi-cfgezhe-innwpfjpl diabetes, obesity, chronic lymphedema.
In the postoperative phase of her surgery there was concern regarding atrial lead function. She initially presented in sinus rhythm but atrial fibrillation developed postoperatively.
During this hospital stay she was treated with amiodarone.
Assessment today finds her to be in atrial fibrillation which makes assessment of the atrial lead difficult. Additionally, she feels poorly in atrial fibrillation.
After informed consent was obtained from the patient we moved towards cardioversion both to alleviate her symptoms and to better assess the right atrial lead.
ANESTHESIA:
Deep sedation was administered (Propofol) and monitored via the Anesthesia department.
CARDIOVERSION:
Once sedation was determined to be adequate, a biphasic shock was delivered with external pads placed in an A-P position.
Attempt # 1: 200 J Results: SR at a HR of 30 bpm, atrial pacing at 60 bpm.
Interrogation of the device once sinus rhythm was established demonstrates poor sensing and very poor capture threshold in the atrial lead. This is in contrast to normal lead function prior to surgery.
This no establishes for function of the atrial lead and we will now plan to move forward with attempted lead revision/new lead placement if venous access allows.
COMPLICATIONS: None
CONCLUSION: Successful cardioversion of atrial fibrillation to sinus rhythm.
RECOMMENDATION:
Move towards attempted lead revision
Patient underwent successful left atrial clipping on June 30, 2023.
Maintain amiodarone
Consideration for oral anticoagulation
Copy to:
Dr. Hiren Peters
Dr. Curtis Claros
--- NOTE | 2023-07-06 18:20 | VATNOTE ---
VAT called to EP lab to attempt left arm IV access. Multiple attempts made by two VAT RNs. Attempted to place midline in left arm at MD request. Minimal vessels seen; able to cannulate brachial vein, unable to thread wire. MD requested no further
attempts, and procedure was terminated.
--- NOTE | 2023-07-06 18:58 | ITS.CL.PACE ---
Cull Grader - Pacemaker Implant
Pacemaker Implant
Procedure Report:
PACEMAKER IMPLANT REPORT
Primary director toxicology: Dr Hiren Peters
Date of Procedure: July 06, 2023
Procedure:
Implantation of pacemaker and lead.
Removal of pacemaker generator.
Indication/Diagnosis:
Non-reversible symptomatic bradycardia due to sinus node dysfunction.
Nonfunctioning atrial lead.
Atrial lead was found to be not functioning after her recent open heart surgery. She presents now for placement of a new atrial lead, removal of old pacemaker generator and implantation of a new pacemaker generator.
After informed consent was obtained, 'time out' was called and confirmed, the patient was prepped and draped in a sterile fashion. Lidocaine with epi was used for local anesthesia. Central venous access was obtained via subclavian venipuncture. An
incision was made along the left chest and the pre-pectoral pocket was entered. The existing dual-chamber permanent pacemaker and lead system were carefully dissected from the pocket. Using a Seldinger technique and peel-away sheaths, the new
right atrial pacing lead was placed under fluoroscopic guidance. This lead was secured using the suture sleeves. once testing (see below) showed adequate and stable function, the leads were from the old pacemaker generator. The old
pacemaker lead was capped. The new right atrial pacing lead and the previously placed right ventricular pacing lead was then attached to the new pacemaker generator header and secured. The pocket was liberally irrigated with antibiotic solution.
The generator header and the leads and generator were placed within the pocket. Fluoroscopy confirmed stable lead position. Antibiotic pouch was placed. The pocket was closed in the typical fashion.
Fluoroscopy was used to guide lead placement.
IMPLANTS:
Medtronic [id number], SN: [id number], Left Pectoral
RA: Medtronic 5076-45, SN: [id number] , RAA
RETAINED:
RV: Medtronic [id number], SN:[id number] , RV apical septum (initially placed 06/23/2016)
ABANDONED:
RA: Medtronic [id number], SN [id number] (initially placed 06/23/2016)
REMOVED:
Medtronic [id number], SN [id number] (initially placed 06/23/2016)
DEVICE TESTING:
Sensing: RA 0.6 mV, RV 5 mV
Capture: RA 0.2 V @ 0.4ms, RV 0.5 V @ 0.4ms
Ohms: RA 380, RV 532
FINAL PROGRAMMING
Garcia Pacing: AAIR+ 70-130 ppm
COMPLICATIONS:
None
CONCLUSIONS:
-Implantation of permanent pacemaker generator and new right atrial pacing lead
-Removal of permanent pacemaker generator
-Abandoning of nonfunctioning right atrial pacing lead
RECOMMENDATIONS:
1. Post-op care (tele, CXR, IV abx)
2. In-Office wound check in 5-7 days
Copy to:
Dr Hiren Peters
[2023-07-06 19:52] LABS: Glucose - Point of Care 167 mg/dl (70-99)
[2023-07-06] MEDS: PRANDIN 2 MG PO (19:53)
[2023-07-06] MEDS: NEURONTIN 100 MG PO ×2 (19:53→23:28)
[2023-07-06] MEDS: LIPITOR 10 MG PO (19:58)
[2023-07-06] MEDS: MAGNESIUM OXIDE 500 MG PO (20:04)
[2023-07-06] MEDS: SENOKOT-S 1 TABLET PO (20:04)
[2023-07-06] MEDS: NOVOLOG FLEXPEN-MODERATE RESISTANCE 1 UNITS SC (20:04)
--- NOTE | 2023-07-06 20:37 | PTCARENOTE ---
Received handoff from sweetie MOYA. Pt in the EP lab at time of report for pacemaker interrogation procedure. Received report from EP lab ~185. Pt to CVICU ~191. Pt AAOx3. Pt 100% A-paced on the monitor. HR 80s. PPM setting DDDR 70-130. Left upper
chest pacemaker site CDI. Left arm sling in place. BP 142/87. Weak pulses throughout. Generalized edema. Pt received on 2 L NC. POX 98%. Transitioned pt to RA. Lung sounds diminished. Abdomen soft/nontender. Hypoactive BS. Pure-wick in place. Pt
voiding yellow urine. Sternal incision approximated w/ surgical adhesive and CDI. Right IJ cordis and PIVx1 CDI. CT dressing CDI. Pt given scheduled medications (see MAR) and set up with dinner tray. Denies pain at this time. VS and EKG obtained.
Call javier within reach.
[2023-07-06] MEDS: KCL 20 MEQ PO (23:27)
[2023-07-06] MEDS: ANCEF 5 IV (23:28)
[2023-07-07] VITALS (11 sets, daily range): BP systolic 70–173; BP diastolic 56–99; PULSE 70; O2SAT 95–96; BMI 44.0
--- NOTE | 2023-07-07 01:00 | PTCARENOTE ---
Previous assessment unchanged. Pt transported to and from x-ray. 100% A-paced on the monitor. HR 70. BP stable. Home CPAP machine in use. Left chest PPM site CDI. Left arm sling in place. Denies pain at this time. Call javier within reach.
[2023-07-07] MEDS: NSS 500 IV (04:52)
[2023-07-07 04:55] LABS: Hematocrit 30.1 % (37.0-47.0); Hemoglobin 9.8 g/dL (12.0-16.0); Mean Corp Hgb Conc. 32.6 g/dL (33.0-37.0); Mean Corpuscular Hgb 31.3 pg (27.0-31.0); Mean Corpuscular Volume 96.2 fL (81.0-99.0); Mean Platelet Volume 9.7 fL (7.4-10.4); Platelet Count 156 10^3/uL (130-400); Red Blood Cell Count 3.13 10^6/uL (4.20-5.40); Red Cell Dist. Width 15.4 % (11.5-14.5); White Blood Cell Count 7.8 10^3/uL (4.8-10.8)
--- NOTE | 2023-07-07 04:56 | W.PN.CT ---
Today's Communication / Plan
-
-No major issues overnight. Hemodynamically and neurologically intact
-Underwent DCCV and Implantation of permanent pacemaker generator with new right atrial pacing lead
-Currently A-paced @ 70 bpm
-Has b/l pleural effusion on cxr, will have IR assess to see if thoracentesis warranted
-Resume Pradaxa if no thoracentesis warranted
-D/C SC Heparin
-Will d/c Amiodarone if pt going back on home dose Sotalol
-Monitor cr 1.1 today, was 0.8 yesterday. Was on Lasix 80 mg PO BID, will reduce to 40 mg PO BID
-Monitor mg 2.5 today, will d/c mag oxide
-Encourage use of IS
-OOB into chair/Ambulate/PT-OT following
-SNF placement ([facility]) today vs tomorrow
Assessment / Plan
-
Assessment:
-S/P Chordal sparing mitral valve replacement [27 mm bioprosthetic]/Tricuspid valve repair [28 mm band annuloplasty]/Biatrial MAZE using cryo ablation/Left atrial appendage exclusion [35 mm clip]/Intraoperative interrogation and setting of
pre-existing PPM, by Dr. Claros on 06/30/23, pod#7
-Severe mitral valve insufficiency [mixed pathology combination of type I�atrial functional, and sclerotic anterior posterior leaflets]
-Moderate TR
-Mild AI
-A-fib with sick sinus syndrome S/P Cardioversion (02/2017), PPM placement (06/2016)- on Pradaxa, Sotalol, and Cardizem preop
-LVEF 50-55% per intraop KARL
-Recent diastolic CHF, 04/2023
-Recent PNA, 04/2023
-MRSA+ (nasal swab on 06/24/23)
-Recent E. Coli UTI (06/24/23, treated with Macrobid)
-LIZBETH (uses CPAP)
-Orthopnea
-HTN/Hyperlipidemia
-T2DM (A1C 6.4)
-CKD 3a (Cr 1.2 preop)
-Class 3 obesity (BMI 44)
-GERD
-Hx DVT/PE (2012)
-Gout
-Lymphedema
-Venous stasis
-Ambulatory dysfunction (uses walker)
-Hx endometrial ca S/P CHELITA with XRT
-S/P D&C
-S/P Carpal tunnel
-S/P B/L Cataracts
-S/P Herniorrhaphy
-S/P Tonsillectomy
-Acute postop blood loss/Anemia (stable without blood transfusion)
-Acute postop thrombocytopenia (stable without active bleed)
-Acute postop atelectasis/pleural effusion
-Acute postop hypovolemia with subsequent hypervolemia
-Acute postop cardiogenic shock, requiring dobutamine gtt
-Acute postop hypermagnesemia
-Acute postop atrial lead malfunction - S/p DCCV with right atrial lead revision/removal of old pacemaker generator and placement of new pacemaker generator, 07/06/23
-Acute postop a-fib 110s- tx with iv Lopressor
-Acute postop hyponatremia
-Acute preop/postop SANA
Echo 07/03/23:
-Normal left ventricular size and wall thickness with low normal LV ejection fraction. Left ventricular ejection fraction visually estimated 50%
-Pacer wire seen in right atrium and ventricle
-In limited views, right ventricle systolic function is preserved
-s/p Chordal sparing mitral valve replacement [27 mm bioprosthetic], 06/30/23. No mitral regurgitation is seen. Peak/mean gradients across the mitral valve are 12/4 mmHg.
-Trileaflet, sclerotic aortic valve with mild to moderate aortic regurgitation
-Tricuspid valve repair with 28 mm band Annuloplasty, 06/30/23. Mild tricuspid regurgitation. Estimated pulmonary artery pressure of 35-40 mmHg assuming a right atrial pressure of 3 mmHg.
-Mild to moderate pulmonic regurgitation
-Prominent anterior fat pad with no significant pericardial effusion
-When compared to intraoperative KARL dated 06/30/2023, LV ejection fraction previously reported low normal at 50-55%. Mean mitral valve gradient following implant of bioprosthetic mitral valve was 2 mmHg with no significant
regurgitation. Aortic regurgitation previously graded mild.
Discussed patient care with: Cardiology, Nursing, Pharmacy and Care Team
Subjective
Procedure
-S/P Chordal sparing mitral valve replacement [27 mm bioprosthetic]/Tricuspid valve repair [28 mm band annuloplasty]/Biatrial MAZE using cryo ablation/Left atrial appendage exclusion [35 mm clip]/Intraoperative interrogation and setting of
pre-existing PPM, by Dr. Claros, 06/30/23
-
Date of Service: July 07, 2023
Pt c/o mild incisional pain, otherwise feels well. Had BM yesterday
Objective Data
-
PT 15.0 Sec (11.4-14.6) H 07/01/23 00:13
INR 1.20 07/01/23 00:13
APTT 36.2 Sec (23.4-35.0) H 06/30/23 11:21
Vital Signs
Vital Signs
Temp Pulse Resp BP Pulse Ox
98 F 70 16 168/67 95
07/07/23 04:41 07/07/23 04:41 07/07/23 04:41 07/07/23 04:41 07/07/23 04:41
CT Intake/Output/Weight
07/06/23 07/06/23 07/07/23
06:59 18:59 06:59
Intake Total 60 / 693.4 120 / 210 90 / 210
Output Total 1850 / 2600 450 / 1500 1050 / 1500
Balance -1790 / -1906.6 -330 / -1290 -960 / -1290
SaO2: 95 (RA)
Physical Exam
-
General: Awake, Oriented and AOx3
Cardiovascular: Regular rate & rhythm (a-paced)
Respiratory: Decreased Breath Sounds
Sternum: Stable
Incision: Clean, Dry, Intact and Dressing Intact
Extremities: Other (lymphedema)
Data Reviewed
-
Lab Results: Results Reviewed
Medications: Active Meds Reviewed
Chest X-Ray: Report Reviewed and Image Reviewed
ECG: Report Reviewed and Image Reviewed
[2023-07-07 05:18] LABS: Blood Urea Nitrogen 34 mg/dl (7-17); Calcium 8.8 mg/dl (8.4-10.2); Carbon Dioxide 31 mmol/L (22-30); Chloride 100 mmol/L (98-107); Estimated Creatinine Clearance 54 ml/min; Glucose 114 mg/dl (70-99); Magnesium 2.5 mg/dl (1.6-2.3); Sodium 139 mmol/L (135-145); eGFR 54.39
[2023-07-07] MEDS: TYLENOL 1000 MG PO ×3 (06:21→21:25)
--- NOTE | 2023-07-07 06:30 | PTCARENOTE ---
Previous assessment unchanged. Pt A-paced on the monitor. HR 70. BP 168/67. Pt on RA. POX 95%. Left arm sling in place. Left upper chest PPM site CDI. Denies significant pain at this time. Labs drawn and sent. EKG obtained. Pt had a large bowel
movement in the bathroom. New pure-wick placed. Call javier within reach.
[2023-07-07 07:53] LABS: Glucose - Point of Care 174 mg/dl (70-99)
[2023-07-07] MEDS: PROTONIX 40 MG PO (07:54)
[2023-07-07] MEDS: PRANDIN 2 MG PO ×3 (07:54→18:02)
[2023-07-07] MEDS: LOW STRENGTH ASPIRIN 81 MG PO (07:54)
--- NOTE | 2023-07-07 08:23 | PTCARENOTE ---
Patient received from shift coordinator resting oob in chair, AAO x 3, states pain controlled at this time. A-paced via cm, SaO2 @ 94% on RA. RIJ Cordis w/kvo infusing. All procedural sites stable. Patient updated to plan of care for the day, in
agreement. Dr. Claros and team to bedside, updated to status. See work list for full assessment and interventions performed.
[2023-07-07] MEDS: LIDOCAINE 4% PATCH TOPICAL (08:52)
[2023-07-07] MEDS: NOVOLOG FLEXPEN-MODERATE RESISTANCE 1 UNITS SC ×2 (08:53→18:02)
[2023-07-07] MEDS: NORVASC 7.5 MG PO (08:53)
[2023-07-07] MEDS: VITAMIN B-12 1000 MCG PO (08:53)
[2023-07-07] MEDS: DIAMOX 125 MG PO ×2 (08:53→15:45)
[2023-07-07] MEDS: HEPARIN 5000 UNITS SC ×3 (08:54→23:32)
[2023-07-07] MEDS: COREG 3.125 MG PO ×2 (08:54→19:35)
[2023-07-07] MEDS: CLARITIN 10 MG PO (08:55)
[2023-07-07] MEDS: THERAGRAN 1 TABLET PO (08:55)
[2023-07-07] MEDS: VITAMIN C 500 MG PO (08:55)
[2023-07-07] MEDS: NEURONTIN 100 MG PO ×3 (08:55→21:25)
[2023-07-07] MEDS: LASIX 40 MG PO ×2 (08:55→15:46)
[2023-07-07] MEDS: KCL 20 MEQ PO ×2 (08:55→19:36)
[2023-07-07] MEDS: ANCEF 5 IV (08:56)
[2023-07-07] MEDS: BETAPACE 120 MG PO (08:57)
[2023-07-07] MEDS: SENOKOT-S PO ×3 (09:05→19:52)
--- NOTE | 2023-07-07 11:23 | CM ---
Chart reviewed. Patient is independent of ADLS, lives alone in a 3rd floor apartment, elevator access, patient has a hospital bed, shower bench and also uses a CPAP machine. PT evaluation recommending SNF. Patient has gone to [facility] in
the past. Referral sent and accepted. Karen, admissions content coordinator, will give NPI on day of discharge to get prior authorization from [facility]. Patient will need to bring her CPAP machine. Plan is for the patient to go to SNF when
medically stable for discharge. CM to follow
[2023-07-07] MEDS: LIDOCAINE 4% PATCH 1 PATCH TOPICAL (11:33)
[2023-07-07 11:39] LABS: Glucose - Point of Care 128 mg/dl (70-99)
[2023-07-07] MEDS: NOVOLOG FLEXPEN-MODERATE RESISTANCE SC (11:39)
--- NOTE | 2023-07-07 11:42 | PTCARENOTE ---
Patient returned from IR s/p L side thoracentesis. VS obtained, stable. Assisted to chair, settled for lunch.
--- NOTE | 2023-07-07 14:09 | W.PN.CARDCBS ---
Addendum entered and electronically signed by Dioni Nuno MD 07/07/23 14:42:
I saw and examined the patient.
The CO FOUNDER AND PRESIDENT or PA's note was reviewed and I agree with the note.
Comment: General: Well developed, well nourished in NAD.
Neck: Supple, no JVD, HJR, carotids +2 B/L, no bruits bilaterally.
Heart: Non displaced PMI, RRR, no murmurs, No S3, S4, no rubs.
Lungs: Decreased breath sounds at the bases bilaterally
Sternal dressings noted
Extremities: No clubbing, cyanosis or edema bilaterally.
Neuro: Grossly nonfocal, awake, alert and oriented x3.
Will discontinue sotalol in favor of amiodarone which will be started on 07/07 AM. Resume Pradaxa after thoracentesis. Appears to be severely deconditioned and will need rehab. Discussed with nursing
Original Note:
Today's Communication / Plan
-
stop sotalol. resume amiodarone at 200mg BID in AM
repeat EKG to assess QTc in AM
resume pradaxa post thoracentesis
OOB/IS
for possible DC to rehab in AM
Impression / Plan
-
Primary Water Use Inspector: Dr. Hrien Peters of [facility]
Assessment:
symptomatic mod to severe MR s/p biopros MVR, TV repair, MAZE, HARVINDER clip 06/30/23
admission to [facility] 04/2023 for CHF exacerbation
SSS s/p [employer] DC PPM 2016
persistent afib on chronic sotalol and pradaxa therapy
chronic diastolic CHF
HTN
HLD
NIDDM
NSVT
obesity
chronic venous insufficiency/chronic lymphedema
TTE 04/27/2023 at [facility]: EF 55 to 60%, normal RV function, moderate to severe eccentric OK
KARL 04/29/23 at [facility]: Moderately severe dilated left atrium, moderately dilated right atrium, moderate to severe eccentric OK with moderate TI, EF felt to be mildly reduced visually
Echocardiogram July 03, 2023, EF 50%, status post mitral valve replacement with no MR and mean gradient of 4, mild to moderate aortic regurgitation, status post tricuspid valve repair with mild TR. PA pressure 35-40. No significant pericardial
effusion.
ECHO 07/03/23: EF 50%, status post chordal sparing mitral valve replacement, no MR seen, peak/mean gradients 12/4 mmHg, mild to moderate AR, TV repair with 28 mm band annuloplasty with mild TR, PAP 35 to 40 mmHg, mild to moderate ND, prominent
anterior fat pad with no significant pericardial effusion
Plan:
-s/p biopros MVR, TV repair, MAZE, HARVINDER clip 06/30/23
-Echo 07/02 overall stable with EF 50% and stable mitral valve replacement and tricuspid valve repair.
-Right atrial lead was not capturing, status post lead revision and cardioversion 07/06/2023
-Amiodarone was started 07/04/2023 due to recurrence of atrial fibrillation. This morning patient was ordered for sotalol 120 mg twice daily and received AM dose. Reviewed with EP, then discussed with CT surgery, would not give further sotalol
given recent amio, and we will plan to continue amiodarone at this time. repeat EKG in AM to reassess QTc, 535ms by EKG 07/06
-Status post L thoracentesis for 550cc 07/06. continue diuresis per CT surg
-Okay to resume Pradaxa. Left atrial appendage without flow by IntraOp KARL
-continue post op care, OOB/IS
-OP follow up with Dr. Peters
-d/w nursing, CT surgery PAs
Progress Note - Water Use Inspector
Subjective
Date of Service: July 07, 2023
Remains with dyspnea on exertion
Objective
Labs:
07/07/23 04:41
07/07/23 04:41
Labs
Hgb 9.8 g/dL (12.0-16.0) L 07/07/23 04:41
Hct 30.1 % (37.0-47.0) L 07/07/23 04:41
Plt Count 156 10^3/uL (130-400) 07/07/23 04:41
PT 15.0 Sec (11.4-14.6) H 07/01/23 00:13
INR 1.20 07/01/23 00:13
APTT 36.2 Sec (23.4-35.0) H 06/30/23 11:21
Sodium 139 mmol/L (135-145) 07/07/23 04:41
Potassium 4.0 mmol/L (3.5-5.1) 07/07/23 04:41
BUN 34 mg/dl (7-17) H 07/07/23 04:41
Creatinine 1.1 mg/dL (0.6-1.0) H 07/07/23 04:41
Glucose 114 mg/dl (70-99) H 07/07/23 04:41
Vital Signs and I&O:
Vital Signs
Temp Pulse Resp BP Pulse Ox
97.9 F 71 15 151/80 96
07/07/23 11:40 07/07/23 13:00 07/07/23 11:40 07/07/23 11:32 07/07/23 11:40
Vital Signs
Temp Pulse Resp BP Pulse Ox
97.9 F 71 15 151/80 96
07/07/23 11:40 07/07/23 13:00 07/07/23 11:40 07/07/23 11:32 07/07/23 11:40
Intake & Output
07/05/23 07/06/23 07/07/23 07/08/23
07:59 07:59 07:59 07:59
Intake Total 680.3 / 1213.7 693.4 / 733.4 210 / 210 430 / 430
Output Total 2250 / 2250 2600 / 2600 1500 / 1500 325 / 325
Balance -1569.7 / -1036.3 -1906.6 / -1866.6 -1290 / -1290 105 / 105
Physical Exam
Physical Exam
GEN: No distress, awake, alert, oriented x3. obese
HEENT: supple, anicteric, mmm, eomi
LUNGS: few crackles at bases, no wheezes
CV: Reg, S1/S2, no murmur
ABD: soft, NT/ND
EXT: No cyanosis, clubbing. 1+ edema of B/L LE with chronic discoloration
NEURO: Gross non-focal
SKIN: Warm, pink, dry. No rash. Sternotomy incision c/d/i. L chest pressure dressing c/d/i
--- NOTE | 2023-07-07 16:03 | PTCARENOTE ---
VS obtained, assessment stable. Patient resting comfortably oob in chair after ambulating w/PT.
[2023-07-07 17:20] LABS: Glucose - Point of Care 154 mg/dl (70-99)
--- NOTE | 2023-07-07 20:00 | PTCARENOTE ---
Received pt from dayshift; pt is resting comfortably in chair, AAOx4, denies pain; pt is AV paced via PPM, VSS; heart sounds audible, radial and DP pulses palpable, trace generalized edema; lung sounds CTA but diminished, spo2 95% on RA; + BS x4
quadrants, abdomen soft non tender; pt voiding clear yellow urine and using a purewick at night; surgical sites are maintained; right PIV was leaking and removed, right IJ cordis maintained. call javier within reach; will continue to monitor.
[2023-07-07 22:39] LABS: Glucose - Point of Care 125 mg/dl (70-99)
[2023-07-08] VITALS (8 sets, daily range): BP systolic 91–155; BP diastolic 54–84; PULSE 70–72; BMI 44.6
--- NOTE | 2023-07-08 | PTCARENOTE ---
Pt assessment unchanged; AV paced on monitor, VSS; RT place pt's home CPAP on pt; pt resting comfortably in bed with purewick in place, q 2hrs skin checks; call javier within reach; will continue to monitor.
[2023-07-08 03:38] LABS: Hematocrit 27.4 % (37.0-47.0); Mean Corp Hgb Conc. 32.8 g/dL (33.0-37.0); Mean Corpuscular Hgb 31.4 pg (27.0-31.0); Mean Corpuscular Volume 95.5 fL (81.0-99.0); Mean Platelet Volume 9.8 fL (7.4-10.4); Platelet Count 136 10^3/uL (130-400); Red Blood Cell Count 2.87 10^6/uL (4.20-5.40); Red Cell Dist. Width 15.1 % (11.5-14.5); White Blood Cell Count 6.8 10^3/uL (4.8-10.8)
--- NOTE | 2023-07-08 04:00 | PTCARENOTE ---
Pt assessment unchanged; pt resting comfortably in bed; EKG and labs obtained; call javier within reach, will continue to monitor.
[2023-07-08 04:22] LABS: Blood Urea Nitrogen 41 mg/dl (7-17); Calcium 8.5 mg/dl (8.4-10.2); Carbon Dioxide 31 mmol/L (22-30); Chloride 97 mmol/L (98-107); Estimated Creatinine Clearance 50 ml/min; Glucose 77 mg/dl (70-99); Potassium 3.4 mmol/L (3.5-5.1); Sodium 135 mmol/L (135-145)
[2023-07-08] MEDS: TYLENOL 1000 MG PO ×3 (05:32→22:02)
--- NOTE | 2023-07-08 06:04 | W.PN.CT ---
Addendum entered and electronically signed by Andrew Claros MD 07/08/23 14:01:
I saw and examined the patient.
The PA's note was reviewed and I agree with the note.
Comment:
Continue diuresis, and restart pradaxa.
Addendum entered and electronically signed by Dia Carbajal PA-C 07/08/23 11:32:
additional dx clarification:
- ACUTE on chronic diastolic CHF
Original Note:
Today's Communication / Plan
-
-pod #8
-no issues overnight
-s/p L thoracentesis on 07/06: 550 cc
-Cr trending up - 1.2 today (1.1 on 07/06 and 0.8 on 07/05)
-plans to d/c to [facility]
-will restart Pradaxa today. D/c sq Heparin once Pradaxa is started
-ok with Cardiology to continue with Amio rather than Sotalol
Assessment / Plan
-
Assessment:
-S/P Chordal sparing mitral valve replacement [27 mm bioprosthetic]/Tricuspid valve repair [28 mm band annuloplasty]/Biatrial MAZE using cryo ablation/Left atrial appendage exclusion [35 mm clip]/Intraoperative interrogation and setting of
pre-existing PPM, by Dr. Claros on 06/30/23, pod#8
-Severe mitral valve insufficiency [mixed pathology combination of type I�atrial functional, and sclerotic anterior posterior leaflets]
-Moderate TR
-Mild AI
-A-fib with sick sinus syndrome S/P Cardioversion (02/2017), PPM placement (06/2016)- on Pradaxa, Sotalol, and Cardizem preop
-LVEF 50-55% per intraop KARL
-Recent diastolic CHF, 04/2023
-Recent PNA, 04/2023
-MRSA+ (nasal swab on 06/24/23)
-Recent E. Coli UTI (06/24/23, treated with Macrobid)
-LIZBETH (uses CPAP)
-Orthopnea
-HTN/Hyperlipidemia
-T2DM (A1C 6.4)
-CKD 3a (Cr 1.2 preop)
-Class 3 obesity (BMI 44)
-GERD
-Hx DVT/PE (2012)
-Gout
-Lymphedema
-Venous stasis
-Ambulatory dysfunction (uses walker)
-Hx endometrial ca S/P CHELITA with XRT
-S/P D&C
-S/P Carpal tunnel
-S/P B/L Cataracts
-S/P Herniorrhaphy
-S/P Tonsillectomy
-Acute postop blood loss/Anemia (stable without blood transfusion)
-Acute postop thrombocytopenia (stable without active bleed)
-Acute postop atelectasis/pleural effusion
-Acute postop hypovolemia with subsequent hypervolemia
-Acute postop cardiogenic shock, requiring dobutamine gtt
-Acute postop hypermagnesemia
-Acute postop atrial lead malfunction - S/p DCCV with right atrial lead revision/removal of old pacemaker generator and placement of new pacemaker generator, 07/06/23
-Acute postop a-fib 110s- tx with iv Lopressor
-Acute postop hyponatremia
-Acute preop/postop SANA
Echo 07/03/23:
-Normal left ventricular size and wall thickness with low normal LV ejection fraction. Left ventricular ejection fraction visually estimated 50%
-Pacer wire seen in right atrium and ventricle
-In limited views, right ventricle systolic function is preserved
-s/p Chordal sparing mitral valve replacement [27 mm bioprosthetic], 06/30/23. No mitral regurgitation is seen. Peak/mean gradients across the mitral valve are 12/4 mmHg.
-Trileaflet, sclerotic aortic valve with mild to moderate aortic regurgitation
-Tricuspid valve repair with 28 mm band Annuloplasty, 06/30/23. Mild tricuspid regurgitation. Estimated pulmonary artery pressure of 35-40 mmHg assuming a right atrial pressure of 3 mmHg.
-Mild to moderate pulmonic regurgitation
-Prominent anterior fat pad with no significant pericardial effusion
-When compared to intraoperative KARL dated 06/30/2023, LV ejection fraction previously reported low normal at 50-55%. Mean mitral valve gradient following implant of bioprosthetic mitral valve was 2 mmHg with no significant
regurgitation. Aortic regurgitation previously graded mild.
Discussed patient care with: Nursing and Care Team
Subjective
Procedure
-S/P Chordal sparing mitral valve replacement [27 mm bioprosthetic]/Tricuspid valve repair [28 mm band annuloplasty]/Biatrial MAZE using cryo ablation/Left atrial appendage exclusion [35 mm clip]/Intraoperative interrogation and setting of
pre-existing PPM, by Dr. Claros, 06/30/23
-
Date of Service: July 08, 2023
Objective Data
-
Lab Results
07/08/23 03:32
07/08/23 03:32
PT 15.0 Sec (11.4-14.6) H 07/01/23 00:13
INR 1.20 07/01/23 00:13
APTT 36.2 Sec (23.4-35.0) H 06/30/23 11:21
Vital Signs
Vital Signs
Temp Pulse Resp BP Pulse Ox
98.5 F 70 16 130/61 95
07/08/23 04:00 07/08/23 04:01 07/08/23 04:00 07/08/23 04:01 07/08/23 04:00
CT Intake/Output/Weight
07/07/23 07/07/23 07/08/23
06:59 18:59 06:59
Intake Total 90 / 210 720 / 1200 480 / 1200
Output Total 1050 / 1500 325 / 525 200 / 525
Balance -960 / -1290 395 / 675 280 / 675
SaO2: 95
Physical Exam
-
General: Awake and AOx3
Cardiovascular: Regular rate & rhythm, No Murmurs and No Rub
Respiratory: Decreased Breath Sounds (R>L (s/p L thoracentesis 07/06))
Sternum: Stable
Incision: Clean, Dry and Intact
Extremities: Other (trace edema b/l)
Data Reviewed
-
Lab Results: Results Reviewed
Medications: Active Meds Reviewed
Chest X-Ray: Report Reviewed and Image Reviewed
ECG: Report Reviewed and Image Reviewed
[2023-07-08 08:05] LABS: Glucose - Point of Care 98 mg/dl (70-99)
[2023-07-08] MEDS: PRANDIN 2 MG PO ×3 (08:11→17:36)
[2023-07-08] MEDS: NOVOLOG FLEXPEN-MODERATE RESISTANCE SC ×3 (08:11→17:36)
[2023-07-08] MEDS: PRADAXA 150 MG PO ×2 (08:11→20:08)
[2023-07-08] MEDS: COREG 3.125 MG PO ×2 (08:11→20:08)
[2023-07-08] MEDS: CLARITIN 10 MG PO (08:11)
[2023-07-08] MEDS: NORVASC 7.5 MG PO (08:12)
[2023-07-08] MEDS: DIAMOX 125 MG PO (08:13)
[2023-07-08] MEDS: THERAGRAN 1 TABLET PO (08:14)
[2023-07-08] MEDS: LOW STRENGTH ASPIRIN 81 MG PO (08:14)
[2023-07-08] MEDS: SENOKOT-S 1 TABLET PO ×2 (08:14→20:09)
[2023-07-08] MEDS: PROTONIX 40 MG PO (08:14)
[2023-07-08] MEDS: LASIX 40 MG PO (08:14)
[2023-07-08] MEDS: NEURONTIN 100 MG PO ×3 (08:14→22:02)
[2023-07-08] MEDS: VITAMIN C 500 MG PO (08:15)
[2023-07-08] MEDS: VITAMIN B-12 1000 MCG PO (08:15)
[2023-07-08] MEDS: KCL 20 MEQ PO ×2 (08:15→20:09)
--- NOTE | 2023-07-08 09:47 | W.DCSUMMARY ---
Discharge Summary
Discharge Data
Date of Admission: 06/30/23
Date of Discharge: 07/09/23
Total time spent discharging patient (in min): 55
-
Pending Results: No
Hospital Course
Primary care physician:
Pillo Zabala
Outpatient cardiac rehabilitation specialist:
Hiren Peters
Inpatient consultants:
DCA, transition of care specialist, interventional radiology
Procedures:
1. Chordal sparing mitral valve replacement [27 mm bioprosthetic]
2. Tricuspid valve repair [28 mm band annuloplasty]
3. Biatrial MAZE using cryo ablation
4. Left atrial appendage exclusion [35 mm clip]
Primary Diagnosis:
1. Mitral valve insufficiency, tricuspid valve insufficiency, paroxysmal atrial fibrillation, sick sinus syndrome status post PPM
Secondary Diagnoses:
1. Severe mitral valve insufficiency [mixed pathology combination of type I�atrial functional, and sclerotic anterior posterior leaflets]
2. Atrial fibrillation, status post sick sinus syndrome with PPM placement, on chronic anticoagulation
3. Moderate tricuspid valve insufficiency, functional�secondary to longstanding atrial fibrillation and mitral insufficiency
4. Hypertension
5. History of endometrial cancer
6. Type 2 diabetes
7. History of PE/DVT, on chronic anticoagulation
8. Morbidly obese with BMI greater than 30
9. Mobility issues requiring walker
10. Gout
11. Nonobstructive coronary artery disease
HPI: 67-year-old female who was recently hospitalized for heart failure and volume overload requiring diuretics. She was also profoundly symptomatic with shortness of breath with exertion and light activity. She is known to have longstanding
atrial fibrillation and was planned for outpatient ablation but unable to attend due to logistical reasons. On my review of her imaging studies she had a combination pathology mitral valve that was likely insufficient secondary to atrial functional
pathology as well as sclerosis of the free margin of the leaflets. She presented electively for a MVR and TVr with Dr. Claros on 06.29.
Hospital course:
Patient was electively admitted for her mitral valve replacement and tricuspid valve repair on 06/29. Perioperatively she was started on vancomycin and Ancef due to her history of being positive for MRSA. Postoperatively she returned to the CVICU
on dobutamine Precedex, and insulin. Dobutamine was temporarily weaned off, however, due to low cardiac output and cardiac index patient's dobutamine was restarted. Patient's Precedex was weaned off and patient was extubated by 1844. On 06/30
postoperative day #1 dobutamine remained at 3.5 mixed venous was stable. She was started on 25% albumins and diuresed with 40 mg of IV Lasix. She was started on subcu heparin given her history of DVTs. On 07/01 postoperative day #2 dobutamine was
weaned down to 2.5 mixed venous remained stable. She continued to be diuresed with 40 mg of Lasix twice with aggressive electrolyte repletion. Pacemaker rate was decreased to 70 bpm. Insulin drip was weaned off and she was restarted on her home
diabetes management regimen. Tram-Lakhwinder catheter was removed. On 07/02 postoperative day #3 patient was weaned off dobutamine. Atrial wires were not capturing after pacer interrogation and EP was made aware for a lead revision. Repeat echo and
chest x-ray remained stable. Patient was again diuresed with 80 of IV Lasix twice a day. Due to patient's hypertension patient was started on Norvasc chest tubes were removed. Due to hyperglycemia patient's home Prandin was increased from 1 mg to
2 mg. On 07/03 postoperative day #4 patient remained hypertensive patient was given hydralazine overnight and then was started on Coreg for better blood pressure control. Pena catheter was removed and patient was again diuresed with 80 mg of IV
Lasix twice a day. Amiodarone was resumed for A-fib. On 07/04 postoperative day #5 patient was started on an amiodarone drip for atrial fibrillation Norvasc was increased to 7.5 mg. Lasix was continued. Chest x-ray revealed a persistent left
pleural effusion so IR was consulted for a thoracentesis. On 07/05 postoperative day #6 patient went for an atrial lead revision with EP. Lasix was continued and Diamox was added. On 07/14 postoperative day #7, creatinine bumped from 0.8-1.1.
Therefore, Lasix was decreased to 40 mg twice daily. After discussion with cardiology patient will be discharged on amiodarone no longer sotalol. Patient went down to IR for thoracentesis of the left chest wall and 550 cc were drained. On 07/07
POD #8, Pradaxa was resumed. However due to a prolonged QTc patient's discharge was delayed. On 07/08 postoperative day #9 patient's repeat EKG showed a QTc of 565 from 598. After discussion with cardiology it was decided to resume amiodarone
tomorrow 200 mg daily. Patient's creatinine level continues to rise to 1.3 and patient's Lasix was put on hold. She was deemed stable for discharge to [facility]. Will repeat EKG and BMP at acute rehab. The goal potassium will be greater
than 4 and magnesium greater than 2 and Lasix can resume once creatinine is trending down.
Home medication changes:
See below
Discharge Plan
-
Patient Disposition: Acute Rehab Facility
Discharge Diagnosis/Procedures: Right Atrial lead revision (07/05), MVR and TVr on 06/29
Condition: Fair
Diet: Low Cholesterol and Diabetic, Carb Controlled
Activity: No strenuous activity
Driving Restrictions: Not until seen by your Dr
Bathing Restrictions: OK to Shower
Blood Work: bmp every other day for 1 week
Other Services: Cardiac Rehab
Specialty Instructions: Weigh Daily- Call MD for wt gain/loss 3 lbs overnight/5 lbs in 1 week
Activity Restrictions/Additional Instructions:
Please call to make appointments for Phase II Cardiac Rehab (When PT/OT/SNF/home nursing are no longer needed):
1) [facility] [address]: [phone]
2) [facility]: [phone]
3) [facility] [phone]
ACTIVITY:
-No strenuous activity: no heavy lifting, pushing, pulling anything over 15 pounds for one month
-continue to use stairs as tolerated
DRIVING RESTRICTIONS:
-No driving for one month or until approved by your surgeon
WOUND CARE:
-Shower daily. Use soap & water.
-No lotions, creams or powders on incision area.
DIET:
-continue a low fat/low cholesterol diet.
-IF you are diabetic, continue carb controlled diet.
CARDIAC REHAB:
-Please make appointment to start in 5-6 weeks with your local hospital program. (See Cardiac Rehabilitation Discharge Booklet).
SPECIALTY INSTRUCTIONS:
-Weigh yourself daily. Call your physician for any weight gain/loss of 3 lbs overnight or 5 lbs in one week.
-REPORT any clicking noise or uneven appearance of your sternum to your surgeon immediately.
-If you smoke, you are instructed to quit. The [place] smoking hotline phone number is [phone]
Stand Alone Forms: DC Inst - Implanted Device
Referrals:
[facility] [Other]
Hiren Peters MD [Active] - 08/11/23 11:20 am
Chuy Zabala MD [Family Provider] -
Andrew Claros MD [Active] - 08/06/23 1:45 pm
Additional Discharge Medication Instructions: Stop taking your cinnamon bark, Pradin 1mg, Sotolol, and diltiazem
Your amiodarone was adjusted because of your prolonged EKG. Please get a repeat EKG prior to resuming
While in the hospital your Creatinine was elevated; while in rehab we will monitor your lab work and resume your lasix when your creatinine is stable
Prescriptions:
New
cyclobenzaprine 10 mg Tablet
5 mg PO Q8HPRN PRN (Reason: muscle spasm) Qty: 30 0RF
amlodipine 5 mg Tablet
7.5 mg PO DAILY Qty: 30 0RF
carvedilol 3.125 mg Tablet
3.125 mg PO BID Qty: 90 0RF
aspirin [Children's Aspirin] 81 mg Tablet,Chewable
81 mg PO DAILY Qty: 0 0RF
gabapentin 100 mg Capsule
100 mg PO TID PRN (Reason: post-op pain) Qty: 30 0RF
Chloraseptic Sore Throat 6-10 mg Lozenge
1 lucila PO Q4HPRN PRN (Reason: sore throat) Qty: 18 0RF
bisacodyl 10 mg Suppository
10 mg RI DAILYPRN PRN (Reason: constipation ) Qty: 50 0RF
sennosides-docusate sodium [Stool Softener-Stimulant Laxat] 8.6-50 mg Tablet
1 tab PO Q12 Qty: 90 0RF
repaglinide 2 mg Tablet
2 mg PO AC Qty: 90 0RF
lidocaine 4 % Adhesive Patch,Medicated
1 patch topical DAILY Qty: 30 0RF
ferrous sulfate 325 mg (65 mg iron) tablet
325 mg PO DAILY Qty: 30 0RF
Rx Instructions:
continue for 30 days after discharge
furosemide 40 mg Tablet
40 mg PO DAILY Qty: 0 0RF
Rx Instructions:
Resume with Creatinine is down trending
amiodarone 200 mg tablet
200 mg PO DAILY Qty: 14 0RF
potassium chloride 20 mEq tablet extended release
20 meq PO DAILY PRN (Reason: K <4.0) Qty: 20 0RF
magnesium 200 mg tablet
200 mg PO DAILY PRN (Reason: Mg <2.0) Qty: 14 0RF
Continued
multivitamin Tablet
1 tab PO DAILY
dabigatran etexilate [Pradaxa] 150 mg Capsule
150 mg PO BID
acetaminophen [Acetaminophen Extra Strength] 500 mg Tablet
1,000 mg PO Q6H PRN (Reason: pain)
colchicine 0.6 mg Tablet
0.6 mg PO .EVERY OTHER DAY PRN (Reason: gout)
Glucosamine Chondroitin 550-30-1 mg Capsule
1 cap PO BID
simvastatin 5 mg Tablet
5 mg PO .MOWEFR
Rx Instructions:
Takes in the evening
melatonin 3 mg Tablet
3 mg PO HS PRN (Reason: sleep)
loratadine 10 mg Tablet
10 mg PO DAILY
potassium chloride 20 mEq Packet
20 meq PO BID
Rx Instructions:
Take with food
pantoprazole 40 mg Tablet,Delayed Release (Dr/Ec)
40 mg PO DAILY
cyanocobalamin (vitamin B-12) 1,000 mcg Tablet
1,000 mcg PO DAILY
ascorbic acid (vitamin C) [Vitamin C] 500 mg Tablet
500 mg PO DAILY
Changed
furosemide 40 mg Tablet
40 mg PO DAILY Qty: 0 0RF
Discontinued
cinnamon bark [Cinnamon] 500 mg Capsule
500 mg PO BID
repaglinide 1 mg Tablet
1 mg PO TID
Rx Instructions:
Take 15-20 minutes prior to meals
diltiazem HCl 300 mg Tablet Extended Release 24 Hr
300 mg PO DAILY
sotalol 120 mg Tablet
120 mg PO Q12H
Discharge Orders:
Discharge Patient (As Directed); Ordered 07/09/23
Ordered By: Yohana Giraldo
Care Plan Goals
Care Plan Goals:
Problem: Readiness for enhanced knowledge related to diagnosis and treatment plan
Goal: Understand your diagnosis and treatment plan needs, including medications if applicable.
Instructions: Know your diagnosis, underlying causes and treatment plan options, including medications if applicable. Consult with your health care team to learn about your diagnosis and treatment plan, including medications if applicable.
Discharge Date and Time
Print Language: GAMBIAN
--- NOTE | 2023-07-08 10:25 | W.[place]-PDMP ---
[place]-PD[place]
-
Checked the [place]- Pres[place] Drug Monitoring Program website, no red flags identified; safe to proceed with prescription.
--- NOTE | 2023-07-08 11:05 | W.PN.CARDCBS ---
Today's Communication / Plan
-
Plan:
-s/p biopros MVR, TV repair, MAZE, HARVINDER clip 06/30/23
-Echo 07/02 overall stable with EF 50% and stable mitral valve replacement and tricuspid valve repair.
-Right atrial lead was not capturing, status post lead revision and cardioversion 07/06/2023
-Amiodarone was started 07/04/2023 due to recurrence of atrial fibrillation. While on amiodarone patient was ordered sotalol 120 mg twice daily and received 1 dose. Reviewed with EP, then discussed with CT surgery, would not give further sotalol
given recent amio. QTc 535ms by EKG 07/06. QTc 598 ms by EKG on 07/07. Discussed with EP, plan to replete electrolytes and hold further amiodarone and repeat EKG in the morning along with electrolytes overnight.
-Status post L thoracentesis for 550cc 07/06. continue diuresis per CT surg. Plan to monitor renal function and lytes as outpt.
-Pradaxa resumed. Left atrial appendage without flow by IntraOp KARL
-continue post op care, OOB/IS
-OP follow up with Dr. Peters
-d/w nursing, CT surgery PAs
Impression / Plan
-
Primary Paper Baler: Dr. Hiren Peters of [facility]
Assessment:
symptomatic mod to severe MR s/p biopros MVR, TV repair, MAZE, HARVINDER clip 06/30/23
admission to [facility] 04/2023 for CHF exacerbation
SSS s/p Medtronic DC PPM 2016
persistent afib on chronic sotalol and pradaxa therapy
chronic diastolic CHF
HTN
HLD
NIDDM
NSVT
obesity
chronic venous insufficiency/chronic lymphedema
TTE 04/27/2023 at [facility]: EF 55 to 60%, normal RV function, moderate to severe eccentric MS
KARL 04/29/23 at [facility]: Moderately severe dilated left atrium, moderately dilated right atrium, moderate to severe eccentric MS with moderate TI, EF felt to be mildly reduced visually
Echocardiogram July 03, 2023, EF 50%, status post mitral valve replacement with no MR and mean gradient of 4, mild to moderate aortic regurgitation, status post tricuspid valve repair with mild TR. PA pressure 35-40. No significant pericardial
effusion.
ECHO 07/03/23: EF 50%, status post chordal sparing mitral valve replacement, no MR seen, peak/mean gradients 12/4 mmHg, mild to moderate AR, TV repair with 28 mm band annuloplasty with mild TR, PAP 35 to 40 mmHg, mild to moderate AL, prominent
anterior fat pad with no significant pericardial effusion
Plan:
-s/p biopros MVR, TV repair, MAZE, HARVINDER clip 06/30/23
-Echo 07/02 overall stable with EF 50% and stable mitral valve replacement and tricuspid valve repair.
-Right atrial lead was not capturing, status post lead revision and cardioversion 07/06/2023
-Amiodarone was started 07/04/2023 due to recurrence of atrial fibrillation. While on amiodarone patient was ordered sotalol 120 mg twice daily and received 1 dose. Reviewed with EP, then discussed with CT surgery, would not give further sotalol
given recent amio. QTc 535ms by EKG 07/06. QTc 598 ms by EKG on 07/07. Discussed with EP, plan to replete electrolytes and hold further amiodarone and repeat EKG in the morning along with electrolytes overnight.
-Status post L thoracentesis for 550cc 07/06. continue diuresis per CT surg. Plan to monitor renal function and lytes as outpt.
-Pradaxa resumed. Left atrial appendage without flow by IntraOp KARL
-continue post op care, OOB/IS
-OP follow up with Dr. Peters
-d/w nursing, CT surgery PAs
Progress Note - Paper Baler
Subjective
Date of Service: July 08, 2023
Overall doing well. Still with GAMBINO.
Objective
Labs:
07/08/23 03:32
07/08/23 03:32
Labs
Hgb 9.0 g/dL (12.0-16.0) L 07/08/23 03:32
Hct 27.4 % (37.0-47.0) L 07/08/23 03:32
Plt Count 136 10^3/uL (130-400) 07/08/23 03:32
PT 15.0 Sec (11.4-14.6) H 07/01/23 00:13
INR 1.20 07/01/23 00:13
APTT 36.2 Sec (23.4-35.0) H 06/30/23 11:21
Sodium 135 mmol/L (135-145) 07/08/23 03:32
Potassium 3.4 mmol/L (3.5-5.1) L 07/08/23 03:32
BUN 41 mg/dl (7-17) H 07/08/23 03:32
Creatinine 1.2 mg/dL (0.6-1.0) H 07/08/23 03:32
Glucose 77 mg/dl (70-99) 07/08/23 03:32
Vital Signs and I&O:
Vital Signs
Temp Pulse Resp BP Pulse Ox
98 F 70 18 140/84 98
07/08/23 08:00 07/08/23 10:00 07/08/23 08:00 07/08/23 07:14 07/08/23 08:00
Vital Signs
Temp Pulse Resp BP Pulse Ox
98 F 70 18 140/84 98
07/08/23 08:00 07/08/23 10:00 07/08/23 08:00 07/08/23 07:14 07/08/23 08:00
Intake & Output
07/06/23 07/07/23 07/08/23 07/09/23
06:59 06:59 06:59 06:59
Intake Total 693.4 / 693.4 210 / 210 1200 / 1200
Output Total 2600 / 2600 1500 / 1500 775 / 775
Balance -1906.6 / -1906.6 -1290 / -1290 425 / 425
Physical Exam
Physical Exam
GEN: No distress, awake, alert, oriented x3. obese
HEENT: supple, anicteric, mmm, eomi
LUNGS: few crackles at bases, no wheezes
CV: Reg, S1/S2, no murmur
ABD: soft, NT/ND
EXT: No cyanosis, clubbing. 1+ edema of B/L LE with chronic discoloration
NEURO: Gross non-focal
SKIN: Warm, pink, dry. No rash. Sternotomy incision c/d/i. L chest pressure dressing c/d/i
[2023-07-08] MEDS: LIDOCAINE 4% PATCH TOPICAL (11:27)
[2023-07-08] MEDS: NSS IV (11:56)
[2023-07-08] MEDS: LIPITOR 10 MG PO (11:56)
[2023-07-08] MEDS: PACERONE 200 MG PO ×2 (11:56→20:08)
[2023-07-08 12:04] LABS: Glucose - Point of Care 114 mg/dl (70-99)
--- NOTE | 2023-07-08 14:37 | CM ---
dc possible tomorrow to [facility] approved. awaiting final medical clearance.
[2023-07-08 17:39] LABS: Glucose - Point of Care 93 mg/dl (70-99)
[2023-07-09] VITALS (7 sets, daily range): BP systolic 127–158; BP diastolic 54–70; PULSE 70–101; O2SAT 97–98; BMI 44.6
--- NOTE | 2023-07-09 02:37 | RESPNOTE ---
aided pt with own cpap at approx 0015
[2023-07-09 05:51] LABS: Blood Urea Nitrogen 38 mg/dl (7-17); Calcium 8.5 mg/dl (8.4-10.2); Carbon Dioxide 28 mmol/L (22-30); Chloride 100 mmol/L (98-107); Estimated Creatinine Clearance 46 ml/min; Glucose 71 mg/dl (70-99); Potassium 3.6 mmol/L (3.5-5.1); Sodium 134 mmol/L (135-145); eGFR 44.51
--- NOTE | 2023-07-09 07:08 | W.PN.CT ---
Today's Communication / Plan
-
-pod #9
-no issues overnight
-Cr continues to trend up - 1.3 today (1.2 on 07/07, 1.1 on 07/06 and 0.8 on 07/05)
-plans to d/c to [facility]
-long Qt - improved today, on Amio
Assessment / Plan
-
Assessment:
-S/P Chordal sparing mitral valve replacement [27 mm bioprosthetic]/Tricuspid valve repair [28 mm band annuloplasty]/Biatrial MAZE using cryo ablation/Left atrial appendage exclusion [35 mm clip]/Intraoperative interrogation and setting of
pre-existing PPM, by Dr. Claros on 06/30/23, pod#9
-Severe mitral valve insufficiency [mixed pathology combination of type I�atrial functional, and sclerotic anterior posterior leaflets]
-Moderate TR
-Mild AI
-A-fib with sick sinus syndrome S/P Cardioversion (02/2017), PPM placement (06/2016)- on Pradaxa, Sotalol, and Cardizem preop
-LVEF 50-55% per intraop KARL
-Recent diastolic CHF, 04/2023
-Recent PNA, 04/2023
-MRSA+ (nasal swab on 06/24/23)
-Recent E. Coli UTI (06/24/23, treated with Macrobid)
-LIZBETH (uses CPAP)
-Orthopnea
-HTN/Hyperlipidemia
-T2DM (A1C 6.4)
-CKD 3a (Cr 1.2 preop)
-Class 3 obesity (BMI 44)
-GERD
-Hx DVT/PE (2012)
-Gout
-Lymphedema
-Venous stasis
-Ambulatory dysfunction (uses walker)
-Hx endometrial ca S/P CHELITA with XRT
-S/P D&C
-S/P Carpal tunnel
-S/P B/L Cataracts
-S/P Herniorrhaphy
-S/P Tonsillectomy
-Acute postop blood loss/Anemia (stable without blood transfusion)
-Acute postop thrombocytopenia (stable without active bleed)
-Acute postop atelectasis/pleural effusion
-Acute postop hypovolemia with subsequent hypervolemia
-Acute postop cardiogenic shock, requiring dobutamine gtt
-Acute postop hypermagnesemia
-Acute postop atrial lead malfunction - S/p DCCV with right atrial lead revision/removal of old pacemaker generator and placement of new pacemaker generator, 07/06/23
-Acute postop a-fib 110s- tx with iv Lopressor
-Acute postop hyponatremia
-Acute preop/postop SANA
Echo 07/03/23:
-Normal left ventricular size and wall thickness with low normal LV ejection fraction. Left ventricular ejection fraction visually estimated 50%
-Pacer wire seen in right atrium and ventricle
-In limited views, right ventricle systolic function is preserved
-s/p Chordal sparing mitral valve replacement [27 mm bioprosthetic], 06/30/23. No mitral regurgitation is seen. Peak/mean gradients across the mitral valve are 12/4 mmHg.
-Trileaflet, sclerotic aortic valve with mild to moderate aortic regurgitation
-Tricuspid valve repair with 28 mm band Annuloplasty, 06/30/23. Mild tricuspid regurgitation. Estimated pulmonary artery pressure of 35-40 mmHg assuming a right atrial pressure of 3 mmHg.
-Mild to moderate pulmonic regurgitation
-Prominent anterior fat pad with no significant pericardial effusion
-When compared to intraoperative KARL dated 06/30/2023, LV ejection fraction previously reported low normal at 50-55%. Mean mitral valve gradient following implant of bioprosthetic mitral valve was 2 mmHg with no significant
regurgitation. Aortic regurgitation previously graded mild.
Discussed patient care with: Nursing and Care Team
Subjective
Procedure
-S/P Chordal sparing mitral valve replacement [27 mm bioprosthetic]/Tricuspid valve repair [28 mm band annuloplasty]/Biatrial MAZE using cryo ablation/Left atrial appendage exclusion [35 mm clip]/Intraoperative interrogation and setting of
pre-existing PPM, by Dr. Claros, 06/30/23
-
Date of Service: July 09, 2023
Objective Data
-
Lab Results
07/08/23 03:32
07/09/23 05:03
PT 15.0 Sec (11.4-14.6) H 07/01/23 00:13
INR 1.20 07/01/23 00:13
APTT 36.2 Sec (23.4-35.0) H 06/30/23 11:21
Vital Signs
Vital Signs
Temp Pulse Resp BP Pulse Ox
98.7 F 70 18 91/72 94
07/08/23 20:00 07/09/23 00:00 07/08/23 20:00 07/08/23 22:03 07/08/23 16:00
CT Intake/Output/Weight
07/08/23 07/09/23 07/09/23
18:59 06:59 18:59
Intake Total
Output Total 150 / 150
Balance -130 / -130
SaO2: 94
Physical Exam
-
General: Awake and AOx3
Cardiovascular: Regular rate & rhythm, No Murmurs and No Rub
Respiratory: Decreased Breath Sounds (R>L (s/p L thoracentesis 07/06))
Sternum: Stable
Incision: Clean, Dry and Intact
Extremities: Other (trace edema b/l)
Data Reviewed
-
Lab Results: Results Reviewed
Medications: Active Meds Reviewed
Chest X-Ray: Report Reviewed and Image Reviewed
ECG: Report Reviewed and Image Reviewed
--- NOTE | 2023-07-09 07:39 | W.CARD.DEVCH ---
Cardiac Device Check
-
Device: Pacemaker
Printing Film Stripper: Medtronic
The patient's device was interrogated with assistance of the device fraud representative followed by a complete physician review. The device had normal function. No abnormalities seen.
Device checked by rep 07/08/23.
[2023-07-09] MEDS: TYLENOL PO (08:24)
[2023-07-09] MEDS: CLARITIN 10 MG PO (08:37)
[2023-07-09] MEDS: PRANDIN 2 MG PO ×2 (08:37→12:40)
[2023-07-09] MEDS: SENOKOT-S 1 TABLET PO (08:37)
[2023-07-09] MEDS: PRADAXA 150 MG PO (08:37)
[2023-07-09] MEDS: COREG 3.125 MG PO (08:37)
[2023-07-09] MEDS: PROTONIX 40 MG PO (08:37)
[2023-07-09] MEDS: LOW STRENGTH ASPIRIN 81 MG PO (08:37)
[2023-07-09 08:38] LABS: Glucose - Point of Care 104 mg/dl (70-99)
[2023-07-09] MEDS: VITAMIN C 500 MG PO (08:38)
[2023-07-09] MEDS: VITAMIN B-12 1000 MCG PO (08:38)
[2023-07-09] MEDS: KCL 20 MEQ PO (08:38)
[2023-07-09] MEDS: LASIX 40 MG PO (08:38)
[2023-07-09] MEDS: NORVASC 7.5 MG PO (08:38)
[2023-07-09] MEDS: FEOSOL 325 MG PO (08:39)
[2023-07-09] MEDS: NOVOLOG FLEXPEN-MODERATE RESISTANCE SC ×2 (08:39→12:40)
[2023-07-09] MEDS: THERAGRAN 1 TABLET PO (08:39)
[2023-07-09] MEDS: NEURONTIN 100 MG PO (08:39)
[2023-07-09] MEDS: LIDOCAINE 4% PATCH TOPICAL (08:39)
[2023-07-09] MEDS: TYLENOL 1000 MG PO (08:49)
--- NOTE | 2023-07-09 09:05 | PTCARENOTE ---
Assumed care of patient from shiftman RN. AAO x 3 , AV paced on monitor. Room air 9 % denies cough or sob. Abdomen obese with active bowel sounds t/o. Pure wick in place and changed out for new one. Voiding large amounts of lokesh urine.
Sternal incision well approximated , Pace maker dressing also c,d,i. Bilateral legs with plus one edema. Pulses palpable. Plan for day discussed.
[2023-07-09] MEDS: NSS IV (10:04)
--- NOTE | 2023-07-09 12:07 | PTCARENOTE ---
Sitting up in chair, denies complaint. VSS. Assessment unchanged from prior.
[2023-07-09 12:41] LABS: Glucose - Point of Care 118 mg/dl (70-99)
--- NOTE | 2023-07-09 13:51 | PTCARENOTE ---
Report called to Li at [facility] . Awaiting warehouse order picker at 1500.
--- NOTE | 2023-07-09 14:13 | CM ---
Auth obtained Ref# [id number]. 07/08-07/14 NRD 07/14. Auth obtained for [facility] ref# [id number]. Ambulance transportation pickup for 3p
--- NOTE | 2023-07-09 14:19 | W.PN.CARDCBS ---
Today's Communication / Plan
-
Plan:
-s/p biopros MVR, TV repair, MAZE, HARVINDER clip 06/30/23
-Echo 07/02 overall stable with EF 50% and stable mitral valve replacement and tricuspid valve repair.
-Right atrial lead was not capturing, status post lead revision and cardioversion 07/06/2023
-Amiodarone was started 07/04/2023 due to recurrence of atrial fibrillation. While on amiodarone patient was ordered sotalol 120 mg twice daily and received 1 dose. Reviewed with EP, then discussed with CT surgery, would not give further sotalol
given recent amio. QTc 535ms by EKG 07/06. QTc 598 ms by EKG on 07/07, repeat 07/08 with QTc 565ms. Discussed with EP, Dr. Arana--plan to repeat ECG in one week and check electrolytes with goal K 4-5 and Mg 2-3.
-Status post L thoracentesis for 550cc 07/06. continue diuresis per CT surg. Plan to monitor renal function and lytes as outpt. Hold lasix for now given rising creat. hold all nephrotoxic meds.
-Pradaxa resumed. Left atrial appendage without flow by IntraOp KARL
-continue post op care, OOB/IS
-OP follow up with Dr. Peters
-d/w nursing, CT surgery PAs and Dr. Claros.
Impression / Plan
-
Primary Children'S Attendant: Dr. Hiren Peters of [facility]
Assessment:
symptomatic mod to severe MR s/p biopros MVR, TV repair, MAZE, HARVINDER clip 06/30/23
admission to [facility] 04/2023 for CHF exacerbation
SSS s/p Medtronic DC PPM 2016
persistent afib on chronic sotalol and pradaxa therapy
chronic diastolic CHF
HTN
HLD
NIDDM
NSVT
obesity
chronic venous insufficiency/chronic lymphedema
TTE 04/27/2023 at [facility]: EF 55 to 60%, normal RV function, moderate to severe eccentric [place]
KARL 04/29/23 at [facility]: Moderately severe dilated left atrium, moderately dilated right atrium, moderate to severe eccentric [place] with moderate TI, EF felt to be mildly reduced visually
Echocardiogram July 03, 2023, EF 50%, status post mitral valve replacement with no MR and mean gradient of 4, mild to moderate aortic regurgitation, status post tricuspid valve repair with mild TR. PA pressure 35-40. No significant pericardial
effusion.
ECHO 07/03/23: EF 50%, status post chordal sparing mitral valve replacement, no MR seen, peak/mean gradients 12/4 mmHg, mild to moderate AR, TV repair with 28 mm band annuloplasty with mild TR, PAP 35 to 40 mmHg, mild to moderate LA, prominent
anterior fat pad with no significant pericardial effusion
Plan:
-s/p biopros MVR, TV repair, MAZE, HARVINDER clip 06/30/23
-Echo 07/02 overall stable with EF 50% and stable mitral valve replacement and tricuspid valve repair.
-Right atrial lead was not capturing, status post lead revision and cardioversion 07/06/2023
-Amiodarone was started 07/04/2023 due to recurrence of atrial fibrillation. While on amiodarone patient was ordered sotalol 120 mg twice daily and received 1 dose. Reviewed with EP, then discussed with CT surgery, would not give further sotalol
given recent amio. QTc 535ms by EKG 07/06. QTc 598 ms by EKG on 07/07, repeat 07/08 with QTc 565ms. Discussed with EP, Dr. Arana--plan to repeat ECG in one week and check electrolytes with goal K 4-5 and Mg 2-3.
-Status post L thoracentesis for 550cc 07/06. continue diuresis per CT surg. Plan to monitor renal function and lytes as outpt. Hold lasix for now given rising creat. hold all nephrotoxic meds.
-Pradaxa resumed. Left atrial appendage without flow by IntraOp KARL
-continue post op care, OOB/IS
-OP follow up with Dr. Peters
-d/w nursing, CT surgery PAs and Dr. Claros.
Progress Note - Children'S Attendant
Subjective
Date of Service: July 09, 2023
No new complaints this AM.
Objective
Labs:
07/08/23 03:32
07/09/23 05:03
Labs
Hgb 9.0 g/dL (12.0-16.0) L 07/08/23 03:32
Hct 27.4 % (37.0-47.0) L 07/08/23 03:32
Plt Count 136 10^3/uL (130-400) 07/08/23 03:32
PT 15.0 Sec (11.4-14.6) H 07/01/23 00:13
INR 1.20 07/01/23 00:13
APTT 36.2 Sec (23.4-35.0) H 06/30/23 11:21
Sodium 134 mmol/L (135-145) L 07/09/23 05:03
Potassium 3.6 mmol/L (3.5-5.1) 07/09/23 05:03
BUN 38 mg/dl (7-17) H 07/09/23 05:03
Creatinine 1.3 mg/dL (0.6-1.0) H 07/09/23 05:03
Glucose 71 mg/dl (70-99) 07/09/23 05:03
Vital Signs and I&O:
Vital Signs
Temp Pulse Resp BP Pulse Ox
98.2 F 70 18 140/68 98
07/09/23 12:03 07/09/23 12:03 07/09/23 12:03 07/09/23 12:02 07/09/23 12:03
Vital Signs
Temp Pulse Resp BP Pulse Ox
98.2 F 70 18 140/68 98
07/09/23 12:03 07/09/23 12:03 07/09/23 12:03 07/09/23 12:02 07/09/23 12:03
Intake & Output
07/07/23 07/08/23 07/09/23 07/10/23
06:59 06:59 06:59 06:59
Intake Total 210 / 210 1200 / 1200 20 / 20 610 / 610
Output Total 1500 / 1500 775 / 775 150 / 150 1200 / 1200
Balance -1290 / -1290 425 / 425 -130 / -130 -590 / -590
Physical Exam
Physical Exam
GEN: No distress, awake, alert, oriented x3. obese
HEENT: supple, anicteric, mmm, eomi
LUNGS: few crackles at bases, no wheezes
CV: Reg, S1/S2, no murmur
ABD: soft, NT/ND
EXT: No cyanosis, clubbing. 1+ edema of B/L LE with chronic discoloration
NEURO: Gross non-focal
SKIN: Warm, pink, dry. No rash. Sternotomy incision c/d/i. L chest pressure dressing c/d/i
--- NOTE | 2023-07-09 15:56 | PTCARENOTE ---
tele monitor d/c'ed, IV line removed, pt discharged without incident
== END 2023-07-09 15:57 | DRG 219 ==
LOC: CVICU 05:13
PROVIDERS: Anesthesiology; Clinical Nurse Specialist Acute Care; Internal Medicine Cardiovascular Disease; Nurse Practitioner; Physician Assistant Medical; Radiology Diagnostic Radiology; ADMITTING PHYSICIAN Thoracic Surgery (Cardiothoracic Vascular Surgery); CONSULT PHYSICIAN Internal Medicine Cardiovascular Disease; FAMILY PHYSICIAN Internal Medicine; OTHER PHYSICIAN Internal Medicine Pulmonary Disease
PROC: 5A1221Z Performance of Cardiac Output, Continuous (ICD-10-PCS; 2023-06-30)
PROC: B24BZZ4 Ultrasonography of Heart with Aorta, Transesophageal (ICD-10-PCS; 2023-06-30)
PROC: 4B02XSZ Measurement of Cardiac Pacemaker, External Approach (ICD-10-PCS; 2023-06-30)
PROC: 02RG08Z Replacement of Mitral Valve with Zooplastic Tissue, Open Approach (ICD-10-PCS; 2023-06-30)
PROC: 02UJ0JZ Supplement Tricuspid Valve with Synthetic Substitute, Open Approach (ICD-10-PCS; 2023-06-30)
PROC: 02L70CK Occlusion of Left Atrial Appendage with Extraluminal Device, Open Approach (ICD-10-PCS; 2023-06-30)
PROC: 02580ZZ Destruction of Conduction Mechanism, Open Approach (ICD-10-PCS; 2023-06-30)
PROC: 5A09357 Assistance with Respiratory Ventilation, Less than 24 Consecutive Hours, Continuous Positive Airway Pressure (ICD-10-PCS; 2023-07-04)
PROC: 5A2204Z Restoration of Cardiac Rhythm, Single (ICD-10-PCS; 2023-07-06)
PROC: 02H63JZ Insertion of Pacemaker Lead into Right Atrium, Percutaneous Approach (ICD-10-PCS; 2023-07-06)
PROC: 0JH606Z Insertion of Pacemaker, Dual Chamber into Chest Subcutaneous Tissue and Fascia, Open Approach (ICD-10-PCS; 2023-07-06)
PROC: 0JPT0PZ Removal of Cardiac Rhythm Related Device from Trunk Subcutaneous Tissue and Fascia, Open Approach (ICD-10-PCS; 2023-07-06)
PROC: 02PA3MZ Removal of Cardiac Lead from Heart, Percutaneous Approach (ICD-10-PCS; 2023-07-06)
PROC: 0W9B3ZZ Drainage of Left Pleural Cavity, Percutaneous Approach (ICD-10-PCS; 2023-07-07)
DX: I08.3 Combined rheumatic disorders of mitral, aortic and tricuspid valves (principal); I50.33 Acute on chronic diastolic (congestive) heart failure; T81.11XA Postprocedural cardiogenic shock, initial encounter; D62 Acute posthemorrhagic anemia; I48.19 Other persistent atrial fibrillation; J91.8 Pleural effusion in other conditions classified elsewhere; Z68.41 Body mass index [BMI] 40.0-44.9, adult; T82.110A Breakdown (mechanical) of cardiac electrode, initial encounter; N39.0 Urinary tract infection, site not specified; I47.20 Ventricular tachycardia, unspecified; J98.11 Atelectasis; I13.0 Hypertensive heart and chronic kidney disease with heart failure and stage 1 through stage 4 chronic kidney disease, or unspecified chronic kidney disease; I97.190 Other postprocedural cardiac functional disturbances following cardiac surgery; E87.1 Hypo-osmolality and hyponatremia; N17.9 Acute kidney failure, unspecified; I49.5 Sick sinus syndrome; M10.9 Gout, unspecified; I25.10 Atherosclerotic heart disease of native coronary artery without angina pectoris; E66.01 Morbid (severe) obesity due to excess calories; I89.0 Lymphedema, not elsewhere classified; Y83.1 Surgical operation with implant of artificial internal device as the cause of abnormal reaction of the patient, or of later complication, without mention of misadventure at the time of the procedure; I87.2 Venous insufficiency (chronic) (peripheral); E11.65 Type 2 diabetes mellitus with hyperglycemia; D69.59 Other secondary thrombocytopenia; Y83.2 Surgical operation with anastomosis, bypass or graft as the cause of abnormal reaction of the patient, or of later complication, without mention of misadventure at the time of the procedure; B96.20 Unspecified Escherichia coli [E. coli] as the cause of diseases classified elsewhere; E78.00 Pure hypercholesterolemia, unspecified; E83.41 Hypermagnesemia; N18.31 Chronic kidney disease, stage 3a; G47.33 Obstructive sleep apnea (adult) (pediatric); K21.9 Gastro-esophageal reflux disease without esophagitis; Z79.01 Long term (current) use of anticoagulants; Z79.84 Long term (current) use of oral hypoglycemic drugs; Z79.899 Other long term (current) drug therapy; Z85.42 Personal history of malignant neoplasm of other parts of uterus; Z86.711 Personal history of pulmonary embolism; Z86.718 Personal history of other venous thrombosis and embolism
CPT/HCPCS: 88305; 32555; 33215; 33228; 33259; 36415; 70355; 71045; 71046; 80048; 80053; 81003; 81015; 82248; 82330; 82565; 82805; 82810; 82947; 82962; 83036; 83735; 84132; 84302; 84520; 85014; 85018; 85025; 85027; 85049; 85347; 85384; 85576; 85610; 85730; 86850; 86900; 86901; 86920; 87070; 87086; 87088; 87147; 87186; 92960; 93005; 93306; 93312; 93320; 93325; 94660; 97110; 97116; 97163; 97167; 97530; 97535; C1785; C1892; C1898; P9045; P9047

== ENCOUNTER 2023-08-01 22:56 | Inpatient (IN) | payer OTHER, SELFPAY ==
--- NOTE | 2023-08-01 23:00 | PTCARENOTE ---
Pt admitted to [id number] via EMS from [facility]. AAOx3. afib on monitor. bp 166/81. afebrile. 98% on 3L NC. GAMBINO. denies complaints of pain. Sternal incision scabbed, steri strips over L chest wall pacer incision. MASD present on buttocks,
b/l breasts and abdominal folds. L painter with healing ulcer, cleaned and foam applied. Call javier within reach.
[2023-08-01 23:03] LABS: Glucose - Point of Care 170 mg/dl (70-99)
[2023-08-01 23:10] VITALS: BP 166/81
[2023-08-02] VITALS (9 sets, daily range): BP systolic 113–150; BP diastolic 63–74; PULSE 97; O2SAT 95–97; BMI 45.2; BMI 45.1
--- NOTE | 2023-08-02 00:24 | HPS.HSE ---
Family Physician
-
Family Physician: Chuy Zabala
Chief Complaint
-
SOB
History of Present Illness
Patient is a 67y F with PMH significant for HTN, A-Fib and valvular heart disease who presents to as direct admission / transfer from [facility] due to CHF and suspected endocarditis. Patient was originally hospitalized at from 06/29 - 07/08. She
underwent MV replacement, TV repair, MAZE procedure and HARVINDER exclusion on 06/29. She underwent PPM revision on 07/05. She underwent L thoracentesis on 07/06 for 550cc of serosanguinous fluid. Patient was transferred to rehab following discharge where
she notes she was progressing very well until early this month. Patient states that she began to note gradually progressive dyspnea with activity that eventually became dyspnea with speech or even at rest. Her diuretic regimen was adjusted without
improvement and on 07/27/23 patient was admitted to [facility]. She was transferred to the ICU there with worsening dyspnea and hypoxemia. She was treated for both possible pneumonia as as CHF with IV abx and IV Lasix.
Blood cultures obtained were positive for S epidermitis and a second set was positive for GPC at the time of her transfer.
A CT chest was done (07/30) showing no PE, bibasilar infiltrates v atelectasis and bilateral pleural effusions.
An Echo was done (07/27) showing large L pleural effusion and moderate - severe AR (previously moderate here on 07/02). LVEF was 45-50%.
There was concern for possible endocarditis and arrangements were made for the patients transfer back to . She arrived here late in the evening on 07/31 and was evaluated at the bedside.
At the time of my exam, patient has evident conversational dyspnea.
She denies any pain at present - though she reports intermittent 'pressure' on either side of the chest.
Patient does describe that her symptoms were gradually progressive over a period of several days to a week prior to her hospitalization at [facility].
She states that she feels mildly improved since that time.
Patient denies any cough, fevers / chills, N/V/D or other focal complaints.
Medical History
Past Medical History
Past Medical History: Reports Other
Additional Past Medical History:
Persistent Atrial Fibrillation
Hypertension
DM-II
NSVT
Obesity
Chronic HFmrEF
History of DVT / PE (2013 and present)
Endometrial Cancer s/p Surgery and XRT
Past Surgical History: Reports Other
Additional Past Surgical History:
06/29: MV Replacement, TV Repair, MAZE, HARVINDER Exclusion
07/05: PPM Revision
07/06: Thoracentesis for 550cc serosanguinous fluid
PPM (2016)
CHELITA / BSO
T&A
D&C
Carpal Tunnel Release
Cataracts
Social History
Tobacco: Non-smoker
Alcohol: None
Drug: None
Family History
Family History: Not pertinent
Allergies / Home Medications
Allergies reflects when Allergies were last updated in [facility].
Home Medications with original date entered in [facility]
Allergy/Medication List:
Allergies
Allergy/AdvReac Type Severity Reaction Status Date / Time
oxytetracycline Allergy Hives Verified 06/23/23 15:29
[From Terramycin]
Home Medications
ascorbic acid (vitamin C) 500 mg tablet (Vitamin C) 500 mg PO DAILY Supplement 06/23/23
cyanocobalamin (vitamin B-12) 1,000 mcg tablet 1,000 mcg PO DAILY Supplement 06/23/23
loratadine 10 mg tablet 10 mg PO DAILY Allergies 06/23/23
melatonin 3 mg tablet 3 mg PO HS PRN sleep 06/23/23
multivitamin 1 tab PO DAILY Supplement 06/23/23
pantoprazole 40 mg tablet,delayed release 40 mg PO DAILY Gastrointestinal Issue 06/23/23
potassium chloride 20 mEq oral packet 20 meq PO BID ELEV 06/23/23
amlodipine 5 mg tablet 7.5 mg (1.5 x 5 mg) PO DAILY hypertension #30 tabs 07/08/23
aspirin 81 mg chewable tablet (Children's Aspirin) 81 mg PO DAILY #0 tabs 07/08/23
ferrous sulfate 325 mg (65 mg iron) tablet 325 mg PO DAILY anemia #30 tabs 07/08/23
amiodarone 200 mg tablet 200 mg PO DAILY Arrhythmia #14 tabs 07/09/23
acetaminophen 325 mg capsule 650 mg PO Q6H PRN pain / fever 08/01/23
carvedilol 25 mg tablet 25 mg PO BID 08/01/23
enoxaparin 120 mg/0.8 mL subcutaneous syringe 110 mg SC Q12H 08/01/23
furosemide 10 mg/mL injection solution 80 mg IV BID 08/01/23
piperacillin-tazobactam 4.5 gram intravenous solution 4.5 g IV Q8H 08/01/23
polyethylene glycol 3350 17 gram oral powder packet (Miralax) 17 g PO DAILY 08/01/23
repaglinide 1 mg tablet 1 mg PO TID 08/01/23
vancomycin 1.5 gram intravenous solution 1.5 g IV Q24H 08/01/23
Review of Systems
-
History Source: Patient
A 12 point ROS was completed and negative except as noted: Yes
Constitutional: Reports Fatigue; Denies Fever or Chills
EENT: Denies Sore Throat
Respiratory: Reports Trouble Breathing; Denies Cough
Cardiac: Reports Chest Pain; Denies Diaphoresis, Palpitations or Syncope
Abdomen/GI: Denies Abdominal Pain, Nausea, Vomiting or Diarrhea
: Denies Dysuria or Flank Pain
Musculoskeletal: Denies Joint Pain or Edema
Neurological: Denies Dizzy or Headache
Psych: Denies Depression or Anxiety
Physical Exam
Vital Signs
Vital Signs
Temp Resp Pulse Ox
98.6 F 20 98
08/01/23 23:15 08/01/23 23:15 08/01/23 23:15
Physical Exam
General: Other (67y F in mild distress due to dyspnea with conversation.)
HEENT: Moist mucous membranes and PERRLA
Respiratory: Other (BS are significantly diminished bilaterally. Few rales in the upper lung fajardo.)
Cardiac: S1/S2, Regular Rhythm and Other (Midline sternotomy and L ACW incisions appear C/D/I.); No Murmur
GI: Soft, Non Tender, Non Distended and Normal Bowel Sounds
Genito-urinary: Pena
Musculoskeletal: No Clubbing, No Cyanosis and Other (Chronic venous stasis skin pigmentation changes b/l LEs. Trace edema. Polypoid skin lesions on the toes bilaterally.)
Neuro: AO x 3 and Nonfocal/grossly intact
Psych: No Anxious or Depressed
Laboratory Results
-
BCx (07/27): Staph epi.
Procalcitonin: 0.28 (< 0.5)
See complete record from [facility].
Impression/Plan
-
A/P: Patient is a 67y F with PMH significant for A-Fib, HTN and DM-II who is transferred from [facility] to for evaluation of CHF and possible endocarditis.
Acute Hypoxemic Respiratory Insufficiency
- Admit for further evaluation and treatment.
- Patient actively being treated for possible pneumonia as well as CHF / volume overload.
- Onset of symptoms seems most c/w CHF.
- Procalcitonin noted to be < 0.5 on labs at [facility].
- Continue supportive care with O2, PAP therapy, etc.
- Treat individual issues as noted below and follow for improvement.
Acute on Chronic HFmrEF
- Weight at present appears close to prior baseline - was higher at discharge here.
- Will continue current Lasix dosing for now and follow weights, I/Os and renal function closely.
- Adjust regimen as needed for effective diuresis / stable renal function.
- Cardiology evaluation for additional recommendations.
Staph Bacteremia
Possible Endocarditis
- Concern for endocarditis with new CHF and bacteremia.
- Afebrile, not toxic appearing.
- Follow-up repeat BCx results.
- Continue current abx for now (Vanco / Zosyn from [facility]).
- Infectious Disease evaluation.
- Echo done at [facility] showed progressed AR. From mild (06/29) to mild - moderate (07/02) to moderate - severe (07/27).
- ? KARL for further evaluation.
- Cardiology / Cardiothoracic Surgery consulted for further evaluation.
Persistent Atrial Fibrillation
- s/p MAZE and HARVINDER exclusion on 06/29.
- Monitor on tele.
- Continue amiodarone, carvedilol, etc.
- EKG now and monitor QT interval - patient had noted QT prolongation on prior admission here.
Benign Hypertension
- Stable. Continue current BP med regimen and adjust as needed for adequate control.
DM-II
- Stable. Hold oral agents for now.
- SSI coverage as needed.
Bilateral LE DVT
History of DVT / PE
- Patient noted on US to have bilateral femoral DVTs at [facility] (07/27).
- Changed from Pradaxa to Lovenox per Hematology recommendations.
- Will continue Lovenox for now (110mg BID).
- Change to IV heparin for bridging if any intervention / surgery is planned.
LIZBETH on CPAP
- Patient states that she was on BiPAP at [facility] due to her increased dyspnea.
- Given some improvement, will try to resume usual HS PAP therapy for now.
Morbid Obesity due to excess calories
- Affects all aspects of care.
- Encourage healthy diet and increased activity when able with goal of weight reduction.
Pena
- Patient arrives at with Pena catheter in place. This was placed at [facility], presumably for I/O determination.
- Will maintain Pena for now.
- D/C prior to discharge.
DVT Prophylaxis: Therapeutic Lovenox
Code Status: Full
[2023-08-02 01:48] LABS: Troponin I 0.016 ng/ml
[2023-08-02] MEDS: ZOSYN 100 IV (02:43)
[2023-08-02] MEDS: PREPARATION H OINTMENT 1 APPLIC RECTAL (02:44)
[2023-08-02 06:06] LABS: Hematocrit 24.5 % (37.0-47.0); Mean Corp Hgb Conc. 32.7 g/dL (33.0-37.0); Mean Corpuscular Hgb 29.9 pg (27.0-31.0); Mean Corpuscular Volume 91.4 fL (81.0-99.0); Mean Platelet Volume 9.4 fL (7.4-10.4); Platelet Count 180 10^3/uL (130-400); Red Blood Cell Count 2.68 10^6/uL (4.20-5.40); Red Cell Dist. Width 13.9 % (11.5-14.5); White Blood Cell Count 5.5 10^3/uL (4.8-10.8)
[2023-08-02 06:54] LABS: ALT (SGPT) 12 U/L (0-35); AST (SGOT) 20 U/L (14-36); Albumin 2.6 g/dl (3.5-5.0); Alkaline Phosphatase 68 U/L (38-126); Blood Urea Nitrogen 16 mg/dl (7-17); Calcium 7.5 mg/dl (8.4-10.2); Carbon Dioxide 30 mmol/L (22-30); Chloride 104 mmol/L (98-107); Direct Bilirubin 0.4 mg/dl (0.0-0.4); Estimated Creatinine Clearance 58 ml/min; Glucose 85 mg/dl (70-99); Magnesium 1.9 mg/dl (1.6-2.3); Phosphorus 2.9 mg/dl (2.5-4.5); Potassium 2.6 mmol/L (3.5-5.1); Sodium 140 mmol/L (135-145); Total Bilirubin 0.7 mg/dl (0.2-1.3); Total Protein 4.9 g/dl (6.3-8.2); eGFR > 60.00
--- NOTE | 2023-08-02 07:00 | W.PN.HOSP.TC ---
Today's Communication/Plan
-
Monitor H&H
checking Iron TIBC B12 Folate
cont diuresis
CPAP bedtime
Oxygen supplementation as necessary
Assessment / Plan
Assessment / Plan
Physical Exam
General: No acute distress resting comfortably in bed
HEENT: Moist mucous membranes and PERRLA
Respiratory: Clear to auscultation bilateral. Conversational dyspnea
Cardiac: S1/S2, Regular Rhythm and Other (Midline sternotomy and L ACW incisions appear C/D/I.); No Murmur
GI: Soft, Non Tender, Non Distended and Normal Bowel Sounds
Genito-urinary: Pena
Musculoskeletal: No Clubbing, No Cyanosis, (Chronic venous stasis skin pigmentation changes b/l LEs. Trace edema.
Neuro: AO x 3
Psych: Calm
A/P: Patient is a 67y F with PMH significant for A-Fib, Obesity, HTN, HLD, DM-II, HFmrEF, valvular heart dz, cardiothoracic surgery, DVT/PE, Endometrial Ca s/p resection/XRT, transferred from [facility] to for evaluation of CHF and possible
endocarditis.
Acute Hypoxemic Respiratory Insufficiency
- Actively being treated for possible pneumonia as well as CHF / volume overload.
- Procalcitonin noted to be < 0.5 on labs at [facility].
- Continue supportive care with O2, PAP therapy, etc
- Wean O2 supplementation as tolerated
Acute on Chronic HFmrEF
- Daily Weights I/O
- check BNP
- Lasix IV 80mg BID
- Cardiology eval appreciated
Staph Bacteremia
Possible Endocarditis
- Follow BCx results.
- CXR appreciated possible PNA vs CHF w/ layering pleural effusion (less likely PNA as per ID)
- ID eval appreciated cont empiric Vanc, discontinued empiric zosyn low suspicion PNA
- Echo done at [facility] showed progressed AR. From mild (06/29) to mild - moderate (07/02) to moderate - severe (07/27).
- eventual KARL for further evaluation, Pulrory doherty requested for risk assessment eventual KARL for evaluation Endocarditis
- Cardiology / Cardiothoracic Surgery consults appreciated
Persistent Atrial Fibrillation
QT prolongation
- s/p MAZE and HARVINDER exclusion on 06/29.
- Monitor on tele.
- Continue amiodarone, carvedilol.
- QTc prolonged 505, minimize/avoid use of QT prolonging agents as possible.
Benign Hypertension
- Relatively well controlled at this time
- cont amlodipine lasix coreg with holding parameters
DM-II
- Stable. Hold oral agents for now.
- SSI coverage as needed.
Bilateral LE DVT
History of DVT / PE
- Patient noted on US to have bilateral femoral DVTs at [facility] (07/27).
- Changed from Pradaxa to Lovenox per Hematology recommendations.
- Cont Lovenox 110mg BID
- Change to IV heparin for bridging if any intervention / surgery is planned.
Anemia
- no obvious signs of bleeding
- repeat H&H appears stable trending up
-checking Iron TIBC B12 Folate
LIZBETH on CPAP continued
Morbid Obesity due to excess calories
- Affects all aspects of care.
- Encourage healthy diet and increased activity when able with goal of weight reduction.
Pena
- Patient arrives at with Pena catheter in place. This was placed at [facility], presumably for I/O determination.
- Maintain Pena for now.
- Eventual trial of void prior to discharge
PT/OT appreciated SNF rehab
DVT Prophylaxis: Therapeutic Lovenox
Code Status: Full
I spent a total of 60 minutes with the patient or on the floor. More than 50% of this time involved counseling and coordination of care.
Anticipated Discharge: > 48 hours
Subjective/Interval History
-
Date of Service: August 02, 2023
Seen and examined at bedside in no acute distress resting comfortably in bed. Non-labored respiration. Conversational dyspnea. Overall reports improvement in shortness of breath. Reports tightness in wound sites from prior cardiothoracic
surgery.
Objective Data
-
Labs:
Laboratory Results
08/02/23 08/02/23
05:50 12:00
WBC 5.5
Hgb 8.0 L
Hct 24.5 L
Plt Count 180
Sodium 140 Pending
Potassium 2.6 L* Pending
Chloride 104 Pending
Carbon Dioxide 30 Pending
BUN 16 Pending
Creatinine 1.0 Pending
Glucose 85 Pending
Calcium 7.5 L Pending
Total Bilirubin 0.7
AST 20
ALT 12
Alkaline Phosphatase 68
Vital Signs:
Vital Signs
Temp Pulse Resp BP Pulse Ox
98.8 F 88 20 131/63 97
08/02/23 03:05 08/02/23 03:01 08/02/23 03:05 08/02/23 03:01 08/02/23 03:05
I&O
08/01/23 08/02/23 08/03/23
06:59 06:59 06:59
Output Total 975 / 975
Balance -975 / -975
[2023-08-02 07:36] LABS: Glucose - Point of Care 98 mg/dl (70-99)
[2023-08-02] MEDS: KCL 270 MEQ IV (07:44)
[2023-08-02] MEDS: KLOR-CON 20 MEQ PO ×2 (07:47→20:04)
[2023-08-02] MEDS: PROTONIX 40 MG PO (07:48)
[2023-08-02] MEDS: NORVASC 7.5 MG PO (07:48)
[2023-08-02] MEDS: KCL 40 MEQ PO (07:48)
[2023-08-02] MEDS: FEOSOL 325 MG PO (07:50)
[2023-08-02] MEDS: LOW STRENGTH ASPIRIN 81 MG PO (07:51)
[2023-08-02] MEDS: PACERONE 200 MG PO (07:51)
[2023-08-02] MEDS: LASIX 80 MG IV ×2 (07:53→15:52)
[2023-08-02] MEDS: MIRALAX PO (07:56)
[2023-08-02] MEDS: LOVENOX 110 MG SC ×2 (08:01→20:04)
[2023-08-02] MEDS: NOVOLOG FLEXPEN-LOW RESISTANCE SC (08:01)
--- NOTE | 2023-08-02 08:12 | CONSULT.CT ---
Consultation
-
Date/Time Consultation Requested: 08/02/23 0000
Date/Time Consultation Performed: 08/02/23 0800
Requesting Provider: John Franklin MD
Performing Provider: Enzo Claros MD
Reason for Consultation: Endocarditis
Patient History
Physicians
Family Physician: Pillo Zabala
Outpatient Supervisor Smoke Control: Hiren Petesr
Inpatient Supervisor Smoke Control: NAMAN
History of Present Illness
Tracy Rojas is a 67-year-old female with an extensive past medical history significant for type 2 diabetes, hypertension, hyperlipidemia, endometrial carcinoma, history of PE/DVT, obstructive sleep apnea on CPAP, chronic atrial fibrillation s/p
PPM placement, recent MVR #27mm bioprosthetic, TVrepair, and LAAC/MAZE with Dr. Claros on 06/29. She was discharged from [facility] on 07/08 to [facility] rehab and presented to [facility] emergency room on 07/26 with
progressive shortness of breath and weakness. Upon admission chest x-ray showed bilateral effusions with possible infiltrate therefore patient was admitted and started on IV Lasix. On 07/27 patient became more dyspneic, tachypneic, and tachycardic
she underwent a CTA of her chest which was negative for a PE but showed bilateral pleural effusions and possible pneumonia. At that time she was upgraded to ICU level of care, blood cultures were drawn, and was started on broad-spectrum antibiotics
including Zosyn and was placed on BiPAP. On 07/27 blood cultures grew Staph epidermidis and was started on vancomycin given her history of MRSA positive. Repeat blood cultures on 07/28 was again positive for GPC's. Due to the patient's ongoing
hypoxia patient was continued on IV diuretics and a ultrasound of the lower extremities was performed. Ultrasound was suggestive of bilateral femoral thrombosis so Pradaxa was discontinued and patient was started on subcu Lovenox. Patient also
underwent a TTE on 07/27 and patient was found to have a LVEF of 45-50%, trace MR with a P/M of 30/10 mmHg, moderate TR, and moderate to severe AR (peak/mean was 17/9). Due to the above findings patient was transferred to [facility] for
further management.
Past Medical History
Past Medical History: Other
-Severe mitral valve insufficiency [mixed pathology combination of type I�atrial functional, and sclerotic anterior posterior leaflets]
-Moderate TR
-Mild AI
-A-fib with sick sinus syndrome S/P Cardioversion (02/2017), PPM placement (06/2016)- on Pradaxa, Sotalol, and Cardizem preop
-LVEF 50-55% per intraop KARL
-Recent diastolic CHF, 04/2023
-Recent PNA, 04/2023
-MRSA+ (nasal swab on 06/24/23)
-Recent E. Coli UTI (06/24/23, treated with Macrobid)
-LIZBETH (uses CPAP)
-Orthopnea
-HTN/Hyperlipidemia
-T2DM (A1C 6.4)
-CKD 3a (Cr 1.2 preop)
-Class 3 obesity (BMI 44)
-GERD
-Hx DVT/PE (2012)
-Gout
-Lymphedema
-Venous stasis
-Ambulatory dysfunction (uses walker)
-Hx endometrial ca S/P CHELITA with XRT
Past Surgical History
Chordal sparing mitral valve replacement [27 mm bioprosthetic]/Tricuspid valve repair [28 mm band annuloplasty]/Biatrial MAZE using cryo ablation/Left atrial appendage exclusion [35 mm clip]/Intraoperative interrogation and setting of pre-existing
PPM, by Dr. Claros on 06/30/23
DCCV with right atrial lead revision/removal of old pacemaker generator and placement of new pacemaker generator, 07/06/23
-S/P D&C
-S/P Carpal tunnel
-S/P B/L Cataracts
-S/P Herniorrhaphy
-S/P Tonsillectomy
Family History
Family Medical History: CAD and Cancer
Social History
Alcohol: None
Drug: None
Tobacco: Non-Smoker
Personal: Single
Living: Alone
Allergies
Allergy/AdvReac Type Severity Reaction Status Date / Time
oxytetracycline Allergy Hives Verified 06/23/23 15:29
[From Terramycin]
Home Medications
�Medication �Instructions �Recorded �Confirmed �Type
ascorbic acid (vitamin C) 500 mg 500 mg PO DAILY Supplement 06/23/23 08/02/23 History
tablet (Vitamin C)
cyanocobalamin (vitamin B-12) 1,000 mcg PO DAILY Supplement 06/23/23 08/02/23 History
1,000 mcg tablet
loratadine 10 mg tablet 10 mg PO DAILY Allergies 06/23/23 08/02/23 History
melatonin 3 mg tablet 3 mg PO HS PRN sleep 06/23/23 08/02/23 History
multivitamin 1 tab PO DAILY Supplement 06/23/23 08/02/23 History
pantoprazole 40 mg tablet,delayed 40 mg PO DAILY Gastrointestinal 06/23/23 08/02/23 History
release Issue
potassium chloride 20 mEq oral 20 meq PO BID ELEV 06/23/23 08/02/23 History
packet
amlodipine 5 mg tablet 7.5 mg (1.5 x 5 mg) PO DAILY 07/08/23 08/02/23 Rx
hypertension #30 tabs
aspirin 81 mg chewable tablet 81 mg PO DAILY #0 tabs 07/08/23 08/02/23 Rx
(Children's Aspirin)
ferrous sulfate 325 mg (65 mg 325 mg PO DAILY anemia #30 tabs 07/08/23 08/02/23 Rx
iron) tablet
amiodarone 200 mg tablet 200 mg PO DAILY Arrhythmia #14 tabs 07/09/23 08/02/23 Rx
acetaminophen 325 mg capsule 650 mg PO Q6H PRN pain / fever 08/01/23 08/01/23 History
carvedilol 25 mg tablet 25 mg PO BID 08/01/23 08/02/23 History
enoxaparin 120 mg/0.8 mL 110 mg SC Q12H 08/01/23 08/02/23 History
subcutaneous syringe
furosemide 10 mg/mL injection 80 mg IV BID 08/01/23 08/02/23 History
solution
piperacillin-tazobactam 4.5 gram 4.5 g IV Q8H 08/01/23 08/02/23 History
intravenous solution
polyethylene glycol 3350 17 gram 17 g PO DAILY 08/01/23 08/02/23 History
oral powder packet (Miralax)
repaglinide 1 mg tablet 1 mg PO TID 08/01/23 08/01/23 History
vancomycin 1.5 gram intravenous 1.5 g IV Q24H 08/01/23 08/02/23 History
solution
Review of Systems
-
History Source: Patient
General: Reports Fatigue and Chills
HEENT: Reports No Symptoms
Respiratory: Reports SOB
Cardiac: Reports Edema
Abdomen/GI: Reports No Symptoms
: Reports No Symptoms
Musculoskeletal: Reports No Symptoms
Skin: Reports No Symptoms
Neurological: Reports No Symptoms
Vascular: Reports No Symptoms
Physical Exam
Vital Signs
Temp 98.8 F 08/02/23 03:05
Temp route: Oral 08/02/23 03:05
Pulse 85 08/02/23 07:53
Rhythm: Atrial fibrillation 08/02/23 00:30
Resp Rate 20 08/02/23 03:05
Blood pressure 113/64 08/02/23 07:53
Blood pressure extremity used: Right upper arm 08/02/23 03:05
Position: Lying 08/02/23 03:05
MAP (cuff-Ted Monitor) 81 08/02/23 03:01
SaO2 97 08/02/23 03:05
Nasal Cannula flow liters per minute 3 08/02/23 00:30
Oxygen Mode of Delivery CPAP 08/02/23 03:05
Can the patient verbally communicate their pain? Yes 08/02/23 00:30
Actual Weight 104.78 kg 08/02/23 05:55
Body Mass Index (BMI) 45.1 08/02/23 05:55
Labs
08/02/23 05:50
Troponin I 0.016 ng/ml 08/02/23 01:17
Diagnostic Studies
Echo 07/28/2023 (performed at [facility])
-Left ventricular ejection fraction is estimated at 45-50%
-Trace mitral valve regurgitation peak/mean 30/10 mmHg
-Moderate TR RVSP at 40 mmHg with an RA pressure of 3 mmHg
-Moderate to severe aortic valve regurgitation peak/mean 17/9 mmHg
-Moderate pulmonic valve regurgitation
Echo 07/03/23:
-Normal left ventricular size and wall thickness with low normal LV ejection fraction. Left ventricular ejection fraction visually estimated 50%
-Pacer wire seen in right atrium and ventricle
-In limited views, right ventricle systolic function is preserved
-s/p Chordal sparing mitral valve replacement [27 mm bioprosthetic], 06/30/23. No mitral regurgitation is seen. Peak/mean gradients across the mitral valve are 12/4 mmHg.
-Trileaflet, sclerotic aortic valve with mild to moderate aortic regurgitation
-Tricuspid valve repair with 28 mm band Annuloplasty, 06/30/23. Mild tricuspid regurgitation. Estimated pulmonary artery pressure of 35-40 mmHg assuming a right atrial pressure of 3 mmHg.
-Mild to moderate pulmonic regurgitation
-Prominent anterior fat pad with no significant pericardial effusion
-When compared to intraoperative KARL dated 06/30/2023, LV ejection fraction previously reported low normal at 50-55%. Mean mitral valve gradient following implant of bioprosthetic mitral valve was 2 mmHg with no significant
regurgitation. Aortic regurgitation previously graded mild.
Exam
General: Respiratory Distress (Mild)
HEENT: Normocephalic and PERRLA
Respiratory: Crackles
Cardiac: S1/S2 and Irregular Rhythm
GI: Soft, Non Tender and Other (Morbidly obese)
Rectal: Deferred by Provider
Skin: Warm and Dry
Neuro: AO x 3 and No Motor Deficits
Extremities: Lower Level Edema (+2)
Lymph: No Lymphadenopathy
Psych: Calm
Assessment / Plan
-
67-year-old female with past medical history listed above presented to [facility] with generalized weakness and shortness of breath. Found to have bilateral pleural effusions, DVT, and new aortic valve insufficiency due to her recent
MVR/TV repair patient was transferred to [facility] for further management.
#Aortic valve insufficiency 2/2 endocarditis (strep epidermidis)
-Continue aggressive diuresis with electrolyte replacement
-Continue IV antibiotics
-Follow blood cultures
-Monitor fever trend and white blood cell count trend
-Will send repeat UA and sputum
-Possible repeat KARL
-ID and cardiology consulted
#Atrial fibrillation
-Continue amiodarone and carvedilol
-On previous hospital admission patient had prolonged QTc; would continue EKGs as needed to monitor
#Bilateral femoral DVTs
-Continue subcu Lovenox
- per records from [facility] from their insurance adviser; patient should be on lovenox x3 months and reassess for failure of pradaxa/ compliance to medication
# acute surgical blood loss anemia-expected
- trend CBC
�
# Morbid obesity (BMI 43.9)
- diabetic calorie restricted diet
# Ambulatory Dysfunction
- limited mobility-uses walker for distances
-Will need PT/OT consulted
# T2DM (A1C 6.4)
-SSI for now
- resume Prandin 1mg TID when tolertaing solids
�
# Hyperlipidemia
- resume� Simvastatin 5mg daily
--- NOTE | 2023-08-02 08:18 | PHA.VAN.IN ---
Assessment
- Assessment
Renal Function: Appears similar to baseline
Renal Function may be Overestimated due to: bmi=45
Concomitant Antimicrobials: zosyn
Historical Micro: History of MRSA infection (06/24/23 )
- Previous Dosing Experience
Previous Regimen: 1000mg q12h
Date of Regimen: 06/2023
only 2 doses given before d/cd
AUC Dosing Plan
- Empiric Dosing
Initial / Loading Dose: 1500mg (07/31 given at [facility])
Maintenance Regimen: 1500mg q24h
Estimated AUC (mcg*h/mL): 566
Estimated Peak (mcg*h/mL): 39.9
Estimated Trough (mcg/ml): 12.2
Estimated Half Life (H): 13.2
- Monitoring
random level ordered to check 08/02 in am since only record of dose given is at [facility]
Pharmacokinetics Vancomycin I
- -
Patient Age: 67
Patient Sex: Female
Vancomycin Day #: 1
Indication: Bacteremia
Requesting Provider: Dr. Lopez
Pertinent Antimicrobial Allergies:
oxytetracycline
Height / Weight:
Height 5 ft
Actual Weight 104.78 kg
IBW in k.5
Adjusted BW in k.2
- Vital Signs / Lab Results
Temp Pulse Resp BP Pulse Ox
98.8 F 85 20 113/64 92
08/02/23 08:11 08/02/23 07:53 08/02/23 08:11 08/02/23 07:53 08/02/23 08:11
Lab Results - Hematology
08/02/23
05:50
WBC 5.5
Lab Results - Chemistry
08/02/23
05:50
BUN 16
Creatinine 1.0
Estimated Creat Clear 58
Albumin 2.6 L
--- NOTE | 2023-08-02 08:22 | CON.CAR ---
Consultation
Consultation Request
Date/Time Consultation Requested: 08/02/23 8:20 AM
Date/Time Consultation Performed: 08/02/23 8:35 AM
Requesting Provider: Dr Lopez
Performing Provider: Dr Jaz Arana
Reason for Consultation: Endocarditis/HF
Medical History
-
Chief Complaint: SOB
History of Present Illness:
She is transferred from [facility] for possible endocarditis. I reviewed all available records. She most recently underwent open heart surgery at [facility] 06/30/2023 status post bioprosthetic mitral valve replacement, tricuspid valve
repair, maze and left atrial appendage occlusion (without flow by KARL). During the hospital stay it was noted that her right atrial lead was not capturing and she is status post lead revision and cardioversion 07/06/2023. During hospital stay
amiodarone was started for paroxysmal atrial fibrillation. She was also continued on Pradaxa. Postop she required thoracentesis during hospital stay on the left on 07/07/2023. She had been doing well and then according to the patient over the past
week developed some increased shortness of breath, weakness and feeling poorly. She had wetness on her sock and was told she had a 'blister '. This is currently covered. She felt warm over the past week eating washcloths on her head but did not
have a temperature.
She is noted at [facility] to have Staph epidermidis in her blood x 1 with gram-positive cocci in another blood culture. Currently she is also in atrial fibrillation. Pradaxa was switched to Lovenox per hematology at [facility]
given on Pradaxa patient developed bilateral DVT noted 07/28/2023.
She was also felt to have heart failure and is being diuresed.
In addition as noted she has history of sick sinus syndrome status post initial Medtronic permanent pacemaker dual-chamber 2017 with recent right atrial lead revision. Abandoned right atrial lead (07/06/2023). She is previous persistent atrial
fibrillation, heart failure preserved ejection fraction, hypertension, hyperlipidemia, [id number] diabetes mellitus, chronic venous insufficiency and lymphedema.
She denies chest pain, palpitations, dizziness and syncope.
Past Medical History
Past Medical History: Arrhythmias (Atrial fibrillation, permanent pacemaker, NSVT), CHF (Heart failure with preserved ejection fraction), HTN, Hypercholesterolemia, NIDDM and Other (Venous insufficiency, chronic lymphedema, obesity; bilateral DVT
07/28/2023 history of PE/DVT in 2012)
Past Surgical History: Cardiac (Mitral valve bioprosthetic replacement, tricuspid valve repair, left atrial appendage clip and maze 06/30/2023; pacemaker placement 2016 with right atrial lead revision and generator change 2023) and Other (Carpal
tunnel surgery, D&C, hysterectomy, hernia repair, cataract)
Social History
Tobacco: Non-Smoker
Alcohol: None
Drug: None
Personal: Single
Family History
Family History: Other (Father coronary artery disease, mother coronary artery disease and hypertension.)
Allergies / Home Medications
Allergy/AdvReac Type Severity Reaction Status Date / Time
oxytetracycline Allergy Hives Verified 06/23/23 15:29
[From Terramycin]
�Medication �Instructions �Recorded �Confirmed �Type
ascorbic acid (vitamin C) 500 mg 500 mg PO DAILY Supplement 06/23/23 08/02/23 History
tablet (Vitamin C)
cyanocobalamin (vitamin B-12) 1,000 mcg PO DAILY Supplement 06/23/23 08/02/23 History
1,000 mcg tablet
loratadine 10 mg tablet 10 mg PO DAILY Allergies 06/23/23 08/02/23 History
melatonin 3 mg tablet 3 mg PO HS PRN sleep 06/23/23 08/02/23 History
multivitamin 1 tab PO DAILY Supplement 06/23/23 08/02/23 History
pantoprazole 40 mg tablet,delayed 40 mg PO DAILY Gastrointestinal 06/23/23 08/02/23 History
release Issue
potassium chloride 20 mEq oral 20 meq PO BID Electrolyte Repletion 06/23/23 08/02/23 History
packet
amlodipine 5 mg tablet 7.5 mg (1.5 x 5 mg) PO DAILY 07/08/23 08/02/23 Rx
hypertension #30 tabs
aspirin 81 mg chewable tablet 81 mg PO DAILY #0 tabs 07/08/23 08/02/23 Rx
(Children's Aspirin)
ferrous sulfate 325 mg (65 mg 325 mg PO DAILY anemia #30 tabs 07/08/23 08/02/23 Rx
iron) tablet
amiodarone 200 mg tablet 200 mg PO DAILY Arrhythmia #14 tabs 07/09/23 08/02/23 Rx
acetaminophen 325 mg capsule 650 mg PO Q6H PRN pain / fever 08/01/23 08/01/23 History
carvedilol 25 mg tablet 25 mg PO BID Heart 08/01/23 08/02/23 History
Disease/Condition
enoxaparin 120 mg/0.8 mL 110 mg SC Q12H Blood Clot 08/01/23 08/02/23 History
subcutaneous syringe Prevention/Tx
furosemide 10 mg/mL injection 80 mg IV BID Fluid 08/01/23 08/02/23 History
solution Retention/Swelling
piperacillin-tazobactam 4.5 gram 4.5 g IV Q8H Infection 08/01/23 08/02/23 History
intravenous solution
polyethylene glycol 3350 17 gram 17 g PO DAILY Constipation 08/01/23 08/02/23 History
oral powder packet (Miralax)
repaglinide 1 mg tablet 1 mg PO TID Diabetes 08/01/23 08/01/23 History
vancomycin 1.5 gram intravenous 1.5 g IV Q24H Infection 08/01/23 08/02/23 History
solution
Review of Systems
-
History Source: Patient
All other systems: Negative unless noted
Constitutional: Fatigue and Other (Feeling more)
Respiratory: Trouble Breathing
Skin: Other (Blister)
Physical Exam
Vital Signs
Temp Pulse Resp BP Pulse Ox
98.8 F 85 20 113/64 92
08/02/23 08:11 08/02/23 07:53 08/02/23 08:11 08/02/23 07:53 08/02/23 08:11
Lab Results
08/02/23 05:50
General: Obese woman with oxygen in place short of breath with speaking
Heart: Distant heart sounds. 02/21 basal systolic murmur
Skin: Pacemaker site clean dry and intact. Midline chest incision clean dry and intact. No sternal click. Covered wound left lower leg
Lungs: Decreased breath sounds bilaterally with crackles
Abdomen: distended.
Extremities: No clubbing, cyanosis lymphedema with significant chronic skin changes wound covered left leg
Neuro: Grossly nonfocal, awake, alert and oriented x3.
Troponin I 0.016 ng/ml 08/02/23 01:17
Impression / Plan
-
Impression / Plan
Primary Ict Analyst: Dr. Hiren Peters of [facility]
Assessment:
Shortness of breath, weakness, feeling warm at times
Possible endocarditis with Staph epidermidis bacteremia
Heart failure with preserved ejection fraction
Worsening of aortic valve insufficiency suspected
Previous symptomatic mod to severe MR s/p bioprosthetic MVR, TV repair, MAZE, HARVINDER clip 06/30/23
SSS s/p Medtronic DC PPM 2016/revision 2023
-Abandoned right atrial lead, nonfunctional, status post right atrial lead revision and generator change 06/2023
Persistent afib (recurrent)
-Previously on chronic sotalol and pradaxa therapy
-Cardioversion 07/06/2023 to sinus rhythm on amiodarone
Bilateral DVT per hematology at [facility] appears to be failure of Pradaxa now on Lovenox
-History of DVT/PE in 2012
HTN
HLD
NIDDM
NSVT
Obesity
Chronic venous insufficiency/chronic lymphedema
Testing at [facility]:
CT chest was done (07/31/23) showing no PE, bibasilar infiltrates v atelectasis and bilateral pleural effusions.
Echo was done (07/28/23) showing large L pleural effusion and moderate - severe AR (previously moderate here on 07/02). LVEF was 45-50%.
TTE 04/27/2023 at [facility]: EF 55 to 60%, normal RV function, moderate to severe eccentric UT
KARL 04/29/23 at [facility]: Moderately severe dilated left atrium, moderately dilated right atrium, moderate to severe eccentric UT with moderate TI, EF felt to be mildly reduced visually
Echocardiogram July 03, 2023, EF 50%, status post mitral valve replacement with no MR and mean gradient of 4, mild to moderate aortic regurgitation, status post tricuspid valve repair with mild TR. PA pressure 35-40. No significant pericardial
effusion.
ECHO 07/03/23: EF 50%, status post chordal sparing mitral valve replacement, no MR seen, peak/mean gradients 12/4 mmHg, mild to moderate AR, TV repair with 28 mm band annuloplasty with mild TR, PAP 35 to 40 mmHg, mild to moderate AK, prominent
anterior fat pad with no significant pericardial effusion
Cardiac catheterization preoperative:
Plan:
She is very complicated. She is status post bioprosthetic MVR, TV repair, MAZE, HARVINDER clip 06/30/23. She now presents with constitutional symptoms and shortness of breath. 1 blood culture with Staph epidermidis from [facility] and a
second blood culture gram-positive cocci pending. Her symptoms may be multifactorial. Echocardiogram fair quality from [facility] with possible worsening of aortic valve insufficiency. Valves cannot be clearly seen. Otherwise valves appear
stable.
Shortness of breath
Heart failure with preserved ejection fraction acute on chronic continue with Lasix for diuresis
Check input/output and daily weights
Check proBNP
Oxygen as needed
Chest x-ray with increased volume plus or minus pneumonia according to reading and pleural effusions, defer to primary service/ID treatment of possible pneumonia
Consider thoracentesis if enough to tap, diagnostic and therapeutic
Possible endocarditis
Concern given question of worsening aortic valve insufficiency which was mild to moderate at recent admission [facility] now being called 'severe '. To my review cannot make that clear determination.
Once pulmonary status is stable transesophageal echo, discussed with patient
Blood cultures noted
ID consulted antibiotics have been started
CT surgery consulted
Atrial fibrillation
May be contributing to feeling weak. Was in sinus rhythm when leaving [facility].
Continue amiodarone for now
Of note anticoagulation now with Lovenox.
Heart rate is controlled
Check pacemaker as to when atrial fibrillation started
Pacemaker
Initially placed in 2016 with right atrial lead revision and generator change 06/2023
Site intact
Check pacemaker in a.m.
Bilateral DVT
Noted 07/28/2023
Prior history of DVT/PE in [address] scan negative for PE
Continue Lovenox as per prior hematology recommendation (was on Pradaxa when developed clot)
Obesity
Venous insufficiency with history of lymphedema
Hypokalemia
Data Reviewed
-
EKG: Tracing Personally Visualized and interpreted
Radiology: Image Personally Visualized and interpreted
CT Scan: Report Reviewed by me
Ultrasound: Image Personally Visualized and interpreted and Report Reviewed by me
Medical Tests (Nuc Med, Echo etc): Image Personally Visualized and interpreted and Report Reviewed by me
Labs: Labs Reviewed by me and Discussed with Nurse
Old Records: Reviewed
[2023-08-02 08:36] LABS: Urine Albumin Negative (Neg - Trace); Urine Bilirubin Negative (Negative); Urine Character Clear (Clear); Urine Color Yellow; Urine Glucose Negative (Negative); Urine Ketone Negative (Negative); Urine Leukocyte Trace (Negative); Urine Nitrite Negative (Negative); Urine Occult Blood Negative (Negative); Urine Urobilinogen Negative (Neg - 1+)
[2023-08-02 08:59] LABS: Glycohemoglobin (HgbA1c) 5.8 % (4.0-5.6)
--- NOTE | 2023-08-02 08:59 | CON.ID ---
Consultation
-
Date/Time Consultation Requested: 08/02/2023 00:10
Date/Time Consultation Performed: 08/02/2023 08:50
Requesting Provider: Dr. Lopez
Performing Provider: Dr. Velarde
Reason for Consultation: Endocarditis
Chief Complaint / Past History
History of Present Illness
Tracy Rojas is a 67-year-old female being evaluated at the request of Dr. Lopez in regards to endocarditis. History is obtained from chart review, along with patient interview.
The patient has a significant past medical history of HTN, A-fib and valvular heart disease. She was transferred from [facility] secondary to CHF and suspected endocarditis.
The patient was hospitalized here at [facility] from 06/29 through 07/08 during which time she underwent a mitral valve replacement, tricuspid valve repair and maze procedure (06/30/23). Additionally, she underwent PPM revision on 07/06/2023.
Thereafter, the patient was transferred to rehab where she had progressive dyspnea. On 07/27/2023 the patient was admitted to [facility], and while there she was treated for pneumonia. Blood cultures obtained at that time were positive
for Staph epidermidis. She has been transferred back to [facility] for further evaluation of suspected endocarditis.
At present, patient denies any fevers or chills. She does admit to intermittent hemorrhoid pain. She denies any chest pain. She denies any cough or congestion. She denies any sputum production.
Past History
Additional Past Medical History:
HTN
A-fib
DM
Obesity
CHF
Hx DVT
Hx endometrial CA (s/p SX and XRT)
Additional Past Surgical History:
Mitral valve replacement / tricuspid valve repair / MAZE (06/30/23)
PPM (2017; revision 07/06/23)
Tonsillectomy
D&C
Carpal tunnel release
Cataract surgery
Allergy History:
oxytetracycline [From Terramycin] Allergy (Verified 06/23/23 15:29)
Hives
Medications Reviewed: Yes
Current Antibiotics:
Vancomycin
Zosyn
Social History
Tobacco: Non-Smoker
Alcohol: None
Drug: None
Personal:
Living: With Family
Family History
Family History: Not Pertinent
Review of Systems
Vital Signs
Temp Pulse Resp BP Pulse Ox
98.8 F 85 20 113/64 92
08/02/23 08:11 08/02/23 07:53 08/02/23 08:11 08/02/23 07:53 08/02/23 08:11
Physical Exam
Physical Exam
Constitutional: Chronically Ill, Non-toxic and Obese
Head: Normocephalic
Eyes: Pupils Equal, Pupils Round, No Conjunctival Hemorrhage and Sclera Anicteric
Oral: No Thrush and No Ulcers
Cardiovascular: S1/S2; Negative S3/S4 or Murmur
Pulmonary: Clear and Other (Moderately labored); Negative Wheezes or Rales
Gastrointestinal: Soft, Non Tender, Non Distended and Normal Bowel Sounds
Genito-Urinary: Pena and Clear Urine
Extremities: Edema (Bilateral lower extremities) and Venous Insufficiency (Advanced; bilateral lower extremities); Negative Cyanosis or Erythema
Skin: Warm and Dry; Negative Rash or Jaundice
Neurological: Awake and Alert
Psychological: Calm
.
Microbiology Results
Micro:
08/02/23 01:23 Blood Culture - Pending
Blood/Venous
08/02/23 01:17 Blood Culture - Pending
Blood/Venous
Microbiology:
07/30/2023 1152 Blood culture: Coag negative staph (performed at [facility])
07/28/2023 1400 Blood culture: Coag negative staph (performed at [facility])
Imaging:
08/02/2023 CXR (portable): No visualized pneumothorax. Opacification of both lower lung fajardo concerning for pneumonia. Obscuration of the left hemidiaphragm concerning for left lower lobe pneumonia. Mild patchy airspace disease.
07/28/2023 ECHO (TTE): Study is technically difficult and technically limited. Mild to moderately dilated left atrium. Large pleural effusion in the left lateral region. Aortic valve is focally thickened and trileaflet. Moderate to severe aortic
regurgitation. Moderate tricuspid regurgitation. Moderate pulmonic valve regurgitation. EF approximately 45%. The bioprosthetic mitral valve is appreciated in the appropriate position and appears well-seated. (Study performed at [facility])
Assessment / Plan
Coag negative staph bacteremia in the context of recent valve replacement
Progressive shortness of breath
Suspected exacerbation of CHF
HTN
A-fib
DM
Obesity
CHF
Hx DVT
Hx endometrial CA (s/p SX and XRT)
Recommendations:
Continue vancomycin for the present while further blood cultures are pending.
Given lack of respiratory symptomatology and normal white count, doubt current PNA. Discontinue further Zosyn.
Will attempt to get further culture data from outside hospital ([facility])
Monitor white count and temperature curve.
Care Review
Plan reviewed with: Physician (Cardiology)
[2023-08-02 09:24] LABS: Urine Bacteria Few (Negative); Urine Red Blood Cell 0-2 /HPF (0-2)
[2023-08-02] MEDS: COREG 3.125 MG PO ×2 (09:27→20:05)
--- NOTE | 2023-08-02 09:35 | PTCARENOTE ---
received patient this am in bed,monitor shows Afib with occasional paced beats. VSS. K this am 2.6, 's, aware, supplemented as ordered,please see MAR. will redraw labs at noon. H/H 8.0/24.5 , Dr. Black aware,ordered H/H and type and screen will be
drawn at noon. urine to culture was sent to lab as ordered. patient has Pena from [facility],draining yellow urine.bilat legs,brown/black with wound noted on left painter, able to palpate pulses. LCW has sterri strips from pacemaker
insertion,site IRVIN,ecchymotic. sternum,IRVIN,scabbed incision. patient remains on 2 LNC, with SOB at rest, shallow o2sat 95%. patient able to use call javier to make her needs known.
[2023-08-02] MEDS: VANCOCIN 300 ML IV (10:52)
[2023-08-02] MEDS: VANCOCIN 300 MG IV (10:52)
[2023-08-02] MEDS: METAMUCIL, KONSYL 1 PACKET PO (12:36)
[2023-08-02] MEDS: RESTASIS 0.05% OPHTHALMIC EMULSION 1 DROPS OPHTH ×2 (12:36→20:05)
[2023-08-02 13:34] LABS: Hematocrit 30.3 % (37.0-47.0)
[2023-08-02 13:59] LABS: Troponin I 0.019 ng/ml
[2023-08-02 14:02] LABS: Blood Urea Nitrogen 18 mg/dl (7-17); Calcium 9.2 mg/dl (8.4-10.2); Carbon Dioxide 35 mmol/L (22-30); Chloride 97 mmol/L (98-107); Estimated Creatinine Clearance 48 ml/min; Glucose 152 mg/dl (70-99); Sodium 140 mmol/L (135-145)
[2023-08-02] MEDS: NOVOLOG FLEXPEN-LOW RESISTANCE 1 UNITS SC ×2 (14:39→17:23)
--- NOTE | 2023-08-02 14:42 | PTCARENOTE ---
follow up for blood work ordered,k4.0 and H/H 10.0/30.3.patient is sitting up in chair for lunch with assist x 3 with walker. patient groaning in chair but tolerating sitting up.
[2023-08-02 17:20] LABS: Glucose - Point of Care 177 mg/dl (70-99)
--- NOTE | 2023-08-02 17:27 | PTCARENOTE ---
TT , can draw all add on lab work at 1930 when other lab work is ordered. patient josseline. being up in chair, returned back to bed with assist of 1 and walker. patient presently eating dinner in bed.grandson at bedside.
[2023-08-02 17:31] LABS: Iron 69 ug/dl (37-170)
[2023-08-02 17:41] LABS: Percent Saturation 24 % (20-50); Total Iron Binding Capacity 283 ug/dl (265-497)
[2023-08-02 18:46] LABS: Folate > 20.0 ng/ml (2.76-20); Vitamin B12 910 pg/ml (239-931)
[2023-08-02 20:23] LABS: NT-proBNP 5420 pg/ml; Troponin I 0.019 ng/ml
[2023-08-02 20:28] LABS: NT-proBNP 4530 pg/ml
--- NOTE | 2023-08-02 21:35 | PTCARENOTE ---
Pt rec'd at shift change awake,alert on 2 lit n/c sat 97%, + dyspnea with minimal exertion. Afib on telemetry with rare V paced beat noted. labs drawn as ordered. Troponin 0.019, no cp. BNP 5420, ford draining 800 ml so far this shift. call javier
within reach
[2023-08-02 22:00] LABS: Glucose - Point of Care 177 mg/dl (70-99)
[2023-08-03 05:01] VITALS: BP 151/91
[2023-08-03] MEDS: VANCOCIN 300 MG IV (05:13)
[2023-08-03] MEDS: VANCOCIN 300 ML IV (05:13)
[2023-08-03 05:29] LABS: Hematocrit 30.9 % (37.0-47.0); Hemoglobin 9.7 g/dL (12.0-16.0); Mean Corp Hgb Conc. 31.4 g/dL (33.0-37.0); Mean Corpuscular Hgb 30.1 pg (27.0-31.0); Mean Platelet Volume 8.7 fL (7.4-10.4); Platelet Count 202 10^3/uL (130-400); Red Blood Cell Count 3.22 10^6/uL (4.20-5.40); Red Cell Dist. Width 14.5 % (11.5-14.5)
[2023-08-03 06:47] LABS: Blood Urea Nitrogen 18 mg/dl (7-17); Calcium 9.2 mg/dl (8.4-10.2); Carbon Dioxide 37 mmol/L (22-30); Chloride 97 mmol/L (98-107); Estimated Creatinine Clearance 48 ml/min; Glucose 98 mg/dl (70-99); Magnesium 2.4 mg/dl (1.6-2.3); Phosphorus 3.6 mg/dl (2.5-4.5); Potassium 3.5 mmol/L (3.5-5.1); Sodium 141 mmol/L (135-145)
[2023-08-03 07:43] VITALS: BP 146/59
[2023-08-03 07:45] LABS: Glucose - Point of Care 112 mg/dl (70-99)
--- NOTE | 2023-08-03 08:23 | W.PN.CARDCBS ---
Addendum entered and electronically signed by Andres Amor DO 08/03/23 10:12:
I saw and examined the patient.
The Senior Technologist's note was reviewed and I agree with the note.
Comment:
Plan:
Transition to oral lasix.
NPO for KARL to eval bioMVR, TV repair [facility]
Interrogate PPM
Cont abx as per ID
CT surgery evaluating
Original Note:
Today's Communication / Plan
-
N.p.o. for KARL today
Continue IV diuresis with consideration of transition to oral on 08/04/2023
Replete potassium
Pacemaker check pending
Continue antibiotics per ID
Impression / Plan
-
Impression / Plan
Primary Community Organizer: Dr. Hiren Peters of [facility]
Assessment:
Shortness of breath, weakness, feeling warm at times
Possible endocarditis with Staph epidermidis bacteremia
Heart failure with preserved ejection fraction
Worsening of aortic valve insufficiency suspected
Previous symptomatic mod to severe MR s/p bioprosthetic MVR, TV repair, MAZE, HARVINDER clip 06/30/23
SSS s/p [employer] DC PPM 2017/revision 2023
-Abandoned right atrial lead, nonfunctional, status post right atrial lead revision and generator change 06/2023
Persistent afib (recurrent)
-Previously on chronic sotalol and pradaxa therapy
-Cardioversion 07/06/2023 to sinus rhythm on amiodarone
Bilateral DVT per hematology at [facility] appears to be failure of Pradaxa now on Lovenox
-History of DVT/PE in 2012
HTN
HLD
NIDDM
NSVT
Obesity
Chronic venous insufficiency/chronic lymphedema
Testing at [facility]:
CT chest was done (07/31/23) showing no PE, bibasilar infiltrates v atelectasis and bilateral pleural effusions.
Echo was done (07/28/23) showing large L pleural effusion and moderate - severe AR (previously moderate here on 07/02). LVEF was 45-50%.
TTE 04/27/2023 at [facility]: EF 55 to 60%, normal RV function, moderate to severe eccentric CT
KARL 04/29/23 at [facility]: Moderately severe dilated left atrium, moderately dilated right atrium, moderate to severe eccentric CT with moderate TI, EF felt to be mildly reduced visually
Echocardiogram July 03, 2023, EF 50%, status post mitral valve replacement with no MR and mean gradient of 4, mild to moderate aortic regurgitation, status post tricuspid valve repair with mild TR. PA pressure 35-40. No significant pericardial
effusion.
ECHO 07/03/23: EF 50%, status post chordal sparing mitral valve replacement, no MR seen, peak/mean gradients 12/4 mmHg, mild to moderate AR, TV repair with 28 mm band annuloplasty with mild TR, PAP 35 to 40 mmHg, mild to moderate WA, prominent
anterior fat pad with no significant pericardial effusion
Plan:
She is very complicated. She is status post bioprosthetic MVR, TV repair, MAZE, HARVINDER clip 06/30/23. She now presents with constitutional symptoms and shortness of breath. 1 blood culture with Staph epidermidis from [facility] and a
second blood culture gram-positive cocci pending. Her symptoms may be multifactorial. Echocardiogram fair quality from [facility] with possible worsening of aortic valve insufficiency. Valves cannot be clearly seen. Otherwise valves appear
stable.
Shortness of breath
Heart failure with preserved ejection fraction acute on chronic continue with Lasix for diuresis
proBNP 5420
Now off oxygen, on room air
volume status seems to be improving she is negative 2715 in last 24 hours, weight near baseline 231 lbs
Continue IV diuresis with consideration to transition to oral Lasix 08/04/2023
Potassium 3.5, give additional 20 meq at lunch to total 60 meq today
Chest x-ray with increased volume plus or minus pneumonia according to reading and pleural effusions. Per ID continue Vancomycin
Consider thoracentesis if enough to tap, diagnostic and therapeutic
Possible endocarditis
Concern given question of worsening aortic valve insufficiency which was mild to moderate at recent admission [facility] now being called 'severe ' by echo at [facility]
Will proceed with transesophageal echo today, discussed with patient
Blood cultures noted from [facility]. Repeat BC at from 08/01 have no growth x 24 hours
ID consulted, continue Vancomycin
CT surgery consulted
Atrial fibrillation
May be contributing to feeling weak. Was in sinus rhythm when leaving [facility].
Good rate control. Continue amiodarone for now
Of note anticoagulation now with Lovenox.
Check pacemaker as to when atrial fibrillation started - has been requested and pending.
Pacemaker
Initially placed in 2016 with right atrial lead revision and generator change 06/2023
Site intact
Pacemaker check pending
Bilateral DVT
Noted 07/28/2023 at [facility]
Prior history of DVT/PE in [address] scan negative for PE
Continue Lovenox as per prior hematology recommendation (was on Pradaxa when developed clot).
Obesity
Venous insufficiency with history of lymphedema
Hypokalemia
Progress Note - Community Organizer
Subjective
Date of Service: August 03, 2023
Patient seen and examined. Patient lying in bed. Patient reports she still feels weak but denies shortness of breath.
Objective
Labs:
08/03/23 05:22
08/03/23 05:22
Labs
Hgb 9.7 g/dL (12.0-16.0) L 08/03/23 05:22
Hct 30.9 % (37.0-47.0) L 08/03/23 05:22
Plt Count 202 10^3/uL (130-400) 08/03/23 05:22
Sodium 141 mmol/L (135-145) 08/03/23 05:22
Potassium 3.5 mmol/L (3.5-5.1) 08/03/23 05:22
BUN 18 mg/dl (7-17) H 08/03/23 05:22
Creatinine 1.2 mg/dL (0.6-1.0) H 08/03/23 05:22
Glucose 98 mg/dl (70-99) 08/03/23 05:22
Troponins
08/02/23 08/02/23 08/02/23
01:17 13:23 19:51
Troponin I 0.016 0.019 0.019
Vital Signs and I&O:
Vital Signs
Temp Pulse Resp BP Pulse Ox
98.3 F 86 20 151/91 91
08/03/23 07:40 08/03/23 05:01 08/03/23 07:40 08/03/23 05:01 08/03/23 07:40
Vital Signs
Temp Pulse Resp BP Pulse Ox
98.3 F 86 20 151/91 91
08/03/23 07:40 08/03/23 05:01 08/03/23 07:40 08/03/23 05:01 08/03/23 07:40
Intake & Output
08/01/23 08/02/23 08/03/23 08/04/23
06:59 06:59 06:59 06:59
Intake Total 1010 / 1010
Output Total 975 / 975 2750 / 2750
Balance -975 / -975 -1740 / -1740
Physical Exam
Physical Exam
GEN: No distress, awake, Ox3
HEENT: supple, anicteric, mmm
LUNGS: Decreased breath sounds at bilateral bases with faint crackles at bases as well, no wheezes, on room air
CV: Irreg irreg, S1/S2, 1/6 syst murmur, no rub or gallops
ABD: soft, BS+, NT/ND, obese
EXT: Trace lower extremity edema, skin changes consistent with chronic venous stasis, wound covered on left leg
NEURO: Gross non-focal
SKIN: No rash, warm, dry, pink
--- NOTE | 2023-08-03 08:37 | PHA.VAN.FU ---
Vancomycin Assessment / Plan
- Assessment
Renal Function: Stable
WBC's are: WNL
In the past 24 hrs, patient has been: Afebrile
- Assessment - Therapeutic Drug Monitoring
Random Level: 29 - drawn while dose infusing
Dose administered 08/02 05:13 and level drawn 08/02 05:22
- Dosing Plan
Adjust Regimen to: dosing by level
Will adjust to dosing by level and obtain random in AM to ensure level appropriate
Unable to assess today's level as it was drawn while dose was infusing
- Monitoring Plan
Random Level: 08/03 0600
- Follow Up
Pharmacy will continue to follow.
Vancomycin Follow UP
- -
Patient Age: 67
Patient Sex: Female
Vancomycin Day #: 2
Indication: Bacteremia
Requesting Provider: Dr. Lopez / [facility]
Pertinent Antimicrobial Allergies:
oxytetracycline - hives
Height / Weight:
Height 5 ft
Actual Weight 104.78 kg
IBW in k.5
Adjusted BW in k.2
Pertinent Past Medical History: BMI ~45, DM
- Vital Signs / Lab Results
Temp Pulse Resp BP Pulse Ox
98.3 F 86 20 151/91 91
08/03/23 07:40 08/03/23 05:01 08/03/23 07:40 08/03/23 05:01 08/03/23 07:40
Lab Results - Hematology
08/02/23 08/03/23
05:50 05:22
WBC 5.5 7.0
Lab Results - Chemistry
08/02/23 08/02/23 08/03/23
05:50 13:23 05:22
BUN 16 18 H 18 H
Creatinine 1.0 1.2 H 1.2 H
Estimated Creat Clear 58 48 48
Albumin 2.6 L
Lab Results - Urine
08/02/23
08:22
Urine Nitrite (Reflex) Negative
Leukocyte Esterase Rfl Trace A
Ur Squamous Epith Cells 3-5
Microbiology Results
08/02/23 01:23 Blood Culture - Preliminary
Blood/Venous No Growth in 24 hours- Final report to follow
08/02/23 01:17 Blood Culture - Preliminary
Blood/Venous No Growth in 24 hours- Final report to follow
Therapeutic Drug Monitoring
Random Vancomycin 29.0 ug/ml 08/03/23 05:22
--- NOTE | 2023-08-03 08:46 | W.PN.ID1 ---
Date of Service
Date of Service: August 03, 2023
Today's Communication
Continue antibiotics.
Assessment / Plan
Coag negative staph bacteremia in the context of recent valve replacement
Progressive shortness of breath
Suspected exacerbation of CHF
HTN
A-fib
DM
Obesity
CHF
Hx DVT
Hx endometrial CA (s/p SX and XRT)
Recommendations:
Continue vancomycin for the present while further blood cultures are pending.
Given lack of respiratory symptomatology and normal white count, doubt current PNA. Zosyn previously discontinued.
Spoke with [facility] microbiology department ([phone]). Culture from 07/27 reveals staph epi (sensiWill attempt to get further culture data from outside hospital ([facility])
Monitor white count and temperature curve.
����������������������������������������������������������
Vital Signs / Physical Exam
Vital Signs
Vital Signs
Temp Pulse Resp BP Pulse Ox
98.3 F 86 20 151/91 91
08/03/23 07:40 08/03/23 05:01 08/03/23 07:40 08/03/23 05:01 08/03/23 07:40
Objective Data
Lab Data
Lab Results
08/03/23 05:22
08/03/23 05:22
Estimated Creat Clear 48 ml/min 08/03/23 05:22
Total Bilirubin 0.7 mg/dl (0.2-1.3) 08/02/23 05:50
AST 20 U/L (14-36) 08/02/23 05:50
ALT 12 U/L (0-35) 08/02/23 05:50
Alkaline Phosphatase 68 U/L (38-126) 08/02/23 05:50
Most recent labs reviewed.
Micro Results:
08/03/23 05:22 Blood Culture - Pending
Blood/Venous
08/02/23 01:23 Blood Culture - Preliminary
Blood/Venous No Growth in 24 hours- Final report to follow
08/02/23 01:17 Blood Culture - Preliminary
Blood/Venous No Growth in 24 hours- Final report to follow
Microbiology:
07/30/2023 1152 Blood culture: Coag negative staph (performed at [facility])
07/28/2023 1400 Blood culture: Coag negative staph (performed at [facility])
Imaging:
08/02/2023 CXR (portable): No visualized pneumothorax. Opacification of both lower lung faajrdo concerning for pneumonia. Obscuration of the left hemidiaphragm concerning for left lower lobe pneumonia. Mild patchy airspace disease.
07/28/2023 ECHO (TTE): Study is technically difficult and technically limited. Mild to moderately dilated left atrium. Large pleural effusion in the left lateral region. Aortic valve is focally thickened and trileaflet. Moderate to severe aortic
regurgitation. Moderate tricuspid regurgitation. Moderate pulmonic valve regurgitation. EF approximately 45%. The bioprosthetic mitral valve is appreciated in the appropriate position and appears well-seated. (Study performed at [facility]
Hospital)
Care Review
Plan reviewed with: Other Provider ([facility])
[2023-08-03] MEDS: LOVENOX 110 MG SC ×2 (08:57→21:38)
[2023-08-03] MEDS: LASIX 80 MG IV ×2 (09:27→17:41)
[2023-08-03] MEDS: RESTASIS 0.05% OPHTHALMIC EMULSION 1 DROPS OPHTH ×2 (09:29→21:39)
[2023-08-03] MEDS: COREG 3.125 MG PO ×2 (09:30→21:39)
[2023-08-03] MEDS: PROTONIX 40 MG PO (09:30)
[2023-08-03] MEDS: NORVASC 7.5 MG PO (09:31)
[2023-08-03] MEDS: FEOSOL 325 MG PO (09:31)
[2023-08-03] MEDS: PACERONE 200 MG PO (09:31)
[2023-08-03] MEDS: LOW STRENGTH ASPIRIN 81 MG PO (09:31)
[2023-08-03] MEDS: MIRALAX PO (09:32)
[2023-08-03] MEDS: NOVOLOG FLEXPEN-LOW RESISTANCE SC ×3 (09:32→17:42)
[2023-08-03 10:39] VITALS: BMI 43.9
[2023-08-03 11:12] VITALS: BP 134/54
--- NOTE | 2023-08-03 12:35 | CM ---
Chart reviewed. Patient is independent of ADLS, lives alone in an apartment on the 3rd floor, elevator access, ambulates with a RW. After her last hospitalization 06/29-07/08 she was discharged to [facility]. Patient never returned home, she
was still receiving Skilled Rehab when she was admitted to [facility]. PT evaluation recommending SNF. Referral faxed to [facility]. Plan is for the patient to go to [facility] Rehab when she is medically stable. CM to follow
[2023-08-03 12:47] LABS: Glucose - Point of Care 108 mg/dl (70-99)
[2023-08-03] MEDS: METAMUCIL, KONSYL 1 PACKET PO (13:42)
[2023-08-03] MEDS: KCL 20 MEQ PO (13:42)
[2023-08-03] MEDS: KLOR-CON 20 MEQ PO ×2 (13:42→21:39)
--- NOTE | 2023-08-03 14:01 | CON.PUL ---
Consultation
Consultation Request
Date/Time Consultation Requested: 08/02/2023 - 1553
Date/Time Consultation Performed: 08/03/2023 - 1352
Requesting Provider: Dr. Black
Performing Provider: Dr. Baum
Reason for Consultation: Risk assessment for KARL
Medical History
-
Chief Complaint: SOB + weakness
History of Present Illness:
67-year-old female with a past medical history of SSS s/p with recent replacement of right atrial lead given prior was nonfunctional, valvular heart disease with moderate�severe MR s/p bioprosthetic MVR, TV repair, persistent A-fib on chronic
sotalol and Pradaxa, chronic HFpEF, LIZBETH on CPAP, history of PE/DVT, chronic lymphedema and history of endometrial carcinoma who presents with SOB + weakness. Patient was recently hospitalized from 06/29 � 07/09/2023 due to mitral valve replacement
and was discharged to acute rehab facility. She was admitted to outside hospital ([facility]) and required ICU level of care due to hypoxia. She was treated for pneumonia and CHF exacerbation with antibiotics and IV Lasix. Blood
cultures were reportedly positive for S. epidermidis, and CT chest there showed no PE with bibasilar infiltrates versus atelectasis and bilateral pleural effusions. She also had an echo done on 07/27 that reportedly showed a large left-sided pleural
effusion with moderate to severe AI with an LVEF mildly reduced at 45-50%. There was concern for possible endocarditis and she was transferred here to for further treatment. She was admitted to the IVU under the hospitalist, with cardiothoracic
surgery, ID and cardiology consulted. The patient's device was interrogated today showing normal function with no abnormality seen. Patient has been in persistent A-fib starting on July 09, 2023. Cardiology is planning to perform KARL to reevaluate
her recently placed bioprosthetic mitral valve replacement as well as TV repair and evaluate severity of aortic insufficiency noted by [facility]. Pulmonary service now consulted for risk stratification for KARL.
When I saw the pt she was in bed in NAD on 3L/min NC. HR 90. She went to KARL today but was tachypneic and felt to be too high risk, hence KARL was Cx. She syas that her breathing feels better today overall. She tells me that earlier when they
broguht her for the KARL that her buttocks and hemorrhoids were hurting her, and that too was making her SOB. She currently denies chest pain, POST, abd pain, N/V/f/c. She denies any significant cough, and says she has mild phlegm production, and no
chills or fevers. Her last KARL was on 06/30/2023 and she tolerated this with no complications.
PMHx: SSS s/p PPM with recent replacement of right atrial lead as prior was nonfunctional (implantation date 07/06/2023), valvular heart disease with moderate�severe MR s/p bioprosthetic mitral valve replacement, TV repair, and MAZE and HARVINDER clip
(06/30/2023), persistent A-fib on chronic sotalol and Pradaxa, chronic HFpEF, hypertension, hyperlipidemia, DM type II, history of NSVT, obesity, chronic venous insufficiency, chronic lymphedema, history of endometrial carcinoma, history of PE/DVT,
LIZBETH on CPAP, nonobstructive CAD, gout, morbid obesity, ambulatory dysfunction requiring walker
PSHx: Carpal tunnel surgery, cataracts bilaterally, Herniorrhaphy, tonsillectomy, history of D&C, chordal sparing mitral valve replacement with TV repair, biatrial MAZE using cryoablation + HARVINDER exclusion
Past Medical History
Past Medical History: Other (Above as per HPI)
Past Surgical History: Other (Above as per HPI)
Social History
Tobacco: Non-smoker
Alcohol: None
Drug: None
Family History
Family History: Reviewed & Not Pertinent
Allergies / Home Medications
Allergies
Allergy/AdvReac Type Severity Reaction Status Date / Time
oxytetracycline Allergy Hives Verified 06/23/23 15:29
[From Terramycin]
Home Medications
�Medication �Instructions �Recorded �Confirmed �Last Taken �Type
ascorbic acid (vitamin C) 500 mg 500 mg PO DAILY Supplement 06/23/23 08/02/23 08/01/23 08:00 History
tablet (Vitamin C)
cyanocobalamin (vitamin B-12) 1,000 mcg PO DAILY Supplement 06/23/23 08/02/23 08/01/23 08:00 History
1,000 mcg tablet
loratadine 10 mg tablet 10 mg PO DAILY Allergies 06/23/23 08/02/23 08/01/23 08:00 History
melatonin 3 mg tablet 3 mg PO HS PRN sleep 06/23/23 08/02/23 07/29/23 23:00 History
multivitamin 1 tab PO DAILY Supplement 06/23/23 08/02/23 08/01/23 08:00 History
pantoprazole 40 mg tablet,delayed 40 mg PO DAILY Gastrointestinal 06/23/23 08/02/23 08/01/23 08:00 History
release Issue
potassium chloride 20 mEq oral 20 meq PO BID Electrolyte Repletion 06/23/23 08/02/23 08/01/23 08:00 History
packet
amlodipine 5 mg tablet 7.5 mg (1.5 x 5 mg) PO DAILY 07/08/23 08/02/23 08/01/23 08:00 Rx
hypertension #30 tabs
aspirin 81 mg chewable tablet 81 mg PO DAILY #0 tabs 07/08/23 08/02/23 08/01/23 08:00 Rx
(Children's Aspirin)
ferrous sulfate 325 mg (65 mg 325 mg PO DAILY anemia #30 tabs 07/08/23 08/02/23 08/01/23 08:00 Rx
iron) tablet
amiodarone 200 mg tablet 200 mg PO DAILY Arrhythmia #14 tabs 07/09/23 08/02/23 08/01/23 08:00 Rx
acetaminophen 325 mg capsule 650 mg PO Q6H PRN pain / fever 08/01/23 08/01/23 Unknown History
carvedilol 25 mg tablet 25 mg PO BID Heart 08/01/23 08/02/23 08/01/23 08:00 History
Disease/Condition
enoxaparin 120 mg/0.8 mL 110 mg SC Q12H Blood Clot 08/01/23 08/02/23 08/01/23 12:00 History
subcutaneous syringe Prevention/Tx
furosemide 10 mg/mL injection 80 mg IV BID Fluid 08/01/23 08/02/23 08/01/23 08:00 History
solution Retention/Swelling
piperacillin-tazobactam 4.5 gram 4.5 g IV Q8H Infection 08/01/23 08/02/23 08/01/23 17:00 History
intravenous solution
polyethylene glycol 3350 17 gram 17 g PO DAILY Constipation 08/01/23 08/02/23 08/01/23 08:00 History
oral powder packet (Miralax)
repaglinide 1 mg tablet 1 mg PO TID Diabetes 08/01/23 08/01/23 Unknown History
vancomycin 1.5 gram intravenous 1.5 g IV Q24H Infection 08/01/23 08/02/23 08/01/23 13:00 History
solution
Review of Systems
-
History Source: Patient
All other systems: Negative unless noted
Vitals / Labs / Diagnostic Testing
Vital Signs
Temp Pulse Resp BP Pulse Ox
98.5 F 89 20 135/57 100
08/03/23 11:09 08/03/23 17:00 08/03/23 11:09 08/03/23 16:29 08/03/23 16:30
Lab Data
08/03/23 05:22
08/03/23 05:22
Microbiology
08/02/23 01:17 Blood/Venous Blood Culture - Preliminary
Positive culture in progress
08/02/23 01:17 Blood/Venous Gram Stain - Preliminary
08/02/23 01:23 Blood/Venous Blood Culture - Preliminary
No Growth in 24 hours- Final report to follow
Diagnostic Testing:
Physical Exam
-
HEENT: Normocephalic, Anicteric and Other (thick neck)
Cardiovascular: Irregular Rhythm and Peripheral Edema (+1 LE edema)
Respiratory: Wheeze (n), Rales (bibasilar), Rhonchi (n), Non-Labored Respirations and Other (Diminished BS bilaterally)
GI: Soft, Distended (abdominal obesity), Non Tender and Normal Bowel Sounds
Neurology: AO x 3 and Tremors (n)
Skin: Warm, Dry and Other (chronic venous stasis dermatitis b/l in LE)
General: Comfortable, Chills (n), Sweats (n) and Other (morbidly obese/deconditioned)
Assessment
-
Assessment: 67-year-old female with a past medical history of SSS s/p with recent replacement of right atrial lead given prior was nonfunctional, valvular heart disease with moderate�severe MR s/p bioprosthetic MVR, TV repair, persistent A-fib on
chronic sotalol and Pradaxa, chronic HFpEF, LIZBETH on CPAP, history of PE/DVT, chronic lymphedema and history of endometrial carcinoma who presents with SOB + weakness. Patient was recently hospitalized from 06/29 � 07/09/2023 due to mitral valve
replacement and was discharged to acute rehab facility. She was admitted to outside hospital ([facility]) and required ICU level of care due to hypoxia. She was treated for pneumonia and CHF exacerbation with antibiotics and IV Lasix.
Blood cultures were reportedly positive for S. epidermidis, and CT chest there showed no PE with bibasilar infiltrates versus atelectasis and bilateral pleural effusions. She also had an echo done on 07/27 that reportedly showed a large left-sided
pleural effusion with moderate to severe AI with an LVEF mildly reduced at 45-50%. There was concern for possible endocarditis and she was transferred here to for further treatment. She was admitted to the IVU under the hospitalist, with
cardiothoracic surgery, ID and cardiology consulted. The patient's device was interrogated today showing normal function with no abnormality seen. Patient has been in persistent A-fib starting on July 09, 2023. Cardiology is planning to perform
KARL to reevaluate her recently placed bioprosthetic mitral valve replacement as well as TV repair and evaluate severity of aortic insufficiency noted by ronn Abbasi. Pulmonary service now consulted for risk stratification for KARL.
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
and HARVINDER clip (06/30/2023), persistent A-fib on chronic sotalol and Pradaxa, chronic HFpEF, hypertension, hyperlipidemia, DM type II, history of NSVT, obesity, chronic venous insufficiency, chronic lymphedema, history of endometrial carcinoma, history
of PE/DVT, LIZBETH on CPAP, nonobstructive CAD, gout, morbid obesity, ambulatory dysfunction requiring walker
Impression:
#Acute respiratory failure with hypoxia due to acute decompensated heart failure/acute HFmrEF exacerbation; doubt bacterial PNA given absent leukocytosis and clinical Sx of PNA are lacking
#SANA
#Contraction alkalosis due to diuresis
#Staph bacteremia
#SSS s/p PPM with recent replacement of right atrial lead due to dysfunction
#Moderate�severe MR with recent bioprosthetic MVR, TV repair, biatrial MAZE and HARVINDER exclusion � OR date: 06/30/2023
#hx of DVT/PE
#LIZBETH on CPAP
#CAD
#Morbid obesity
#Chronic venous insufficiency/lymphedema
Plan:
- Patient went down for KARL today but could not lay flat for procedure - pt has multifactorial reasons for this being in acute heart failure, obesity, deconditioning and hemorrhoidal pain
- Of note, her last KARL was on 06/30/2023 and she tolerated this with no complications
- Patient is high risk for a low�intermediate risk procedure given her acute CHF exacerbation with bacteremia and sepsis; use conscious sedation as opposed to general anesthesia with MAC
- She is developing a contraction alkalosis with serum bicarbonate level now approaching 40 --> check blood gas in the AM to assure pH is stable; if pH>7.45 with sHCO3 >35 then would tx with diamox 250mg x1
- Continue with diuresis as per cardiology --> patient is now net negative 3.5L since admission --> change IV lasix to PO and aim for net negative ~500cc per day to avoid worsening contraction alkalosis
- prn nebulized bronchodilators with atrovent and xopenex (given A-fib) --> would give a neb treatment tomorrow AM prior to going down for KARL to help prevent any bronchospasm that may occur and reduce her risk of complications while getting KARL
- Would also give preparation H treatment in the AM prior to her KARL to help prevent any pain that she could experience during her procedure or while transferring to the bed and then laying flat
- Continue CPAP with sleep
- Maintain SpO2 >90-94% with supplemental O2 as needed
- Abx as per ID
- Follow up infectious workup and follow up BCx collected at OSH ([facility])
- Incentive spirometer encouraged
- Replete electrolytes with K>4, Mg>2
- Maintain euglycemia with goal BG >100 and <180
- PT/OT; pain control
- DVT ppx
Pulmonary service will continue to follow along.
Total time spent today was 75 minutes for this encounter. Time includes reviewing laboratory test/imaging results, reviewing pertinent medical records, obtaining and reviewing medical history, performing an appropriate exam, ordering medications,
tests and procedures. Time also includes documentation of this encounter, coordinating patient care and communicating with other healthcare professionals. Total time does not include separately billed tests performed on this date of service.
Data:
CXR 08-02-2023:
Progressed findings suggesting bilateral lower lobe, right upper lobe and left perihilar pneumonia. Clinical and laboratory correlation recommended. CHF with layering pleural effusions cannot be completely excluded.
Mild cardiomegaly. Stable
--- NOTE | 2023-08-03 14:50 | W.CARD.DEVCH ---
Cardiac Device Check
-
Device: Pacemaker
Waterproof Bag Sewer: [employer]
The patient's device was interrogated with assistance of the device denial management representative followed by a complete physician review. The device had normal function. No abnormalities seen.
patient has been in persistent atrial fibrillation starting July 08. Vpaced 35% and A paced 10.4% since July 08, 2023
[2023-08-03 16:29] VITALS: BP 135/57
[2023-08-03 17:25] LABS: Glucose - Point of Care 111 mg/dl (70-99)
[2023-08-03 18:57] VITALS: BP 155/67
--- NOTE | 2023-08-03 20:00 | PTCARENOTE ---
assumed care at 1900. Patient assisted to chair using rolling walker, incontinent of small amounts of brown stool, care provided, hemorrhoid cream applied. A-fib occasional V-paced beats on telemetry. Sternal incisions scabbed and healing, steri
strips to left chest wall. She is anxious and tearful, requiring reassurance and attention. IV sites removed in right arm. Pena to gravity, legs elevated in chair. +1 dependent edema, call javier in reach
--- NOTE | 2023-08-03 20:49 | W.PN.HOSP.TC ---
Addendum entered and electronically signed by Marilin Benitez MD 08/03/23 21:17:
Patient seen and examined independently--agree with plan set forth by Dr. Arredondo
GENERAL: well developed, well nourished, female in no apparent distress
HEENT: NC/AT--O2 NC
HEART: irreg irreg--no murmur noted
LUNGS : clear to auscultation bilaterally
ABDOM: soft, nontender, nondistended, + bowel sounds
EXT: no cyanosis, clubbing, or edema
NEUROLOGIC: grossly intact
: ford
Acute Hypoxemic Respiratory Insufficiency--likely due to CHF exac from presumed endocarditis--KARL cancelled due to labored breathing--Currently on 2 L O2 NC--Neb treatments in a.m. per pulmonology prior to KARL--Positive preliminary blood
culture--Pneumonia less likely, however will continue with antibiotics for now-Procalcitonin noted to be < 0.5 on labs at [facility]-Continue supportive care with O2, PAP therapy, etc--Wean O2 supplementation as tolerated--apprec pulm/cards input--diurese
as able
Acute on Chronic HFmrEF - Daily Weights I/O - check BNP - Lasix IV 80mg BID - Cardiology eval appreciated
Staph Bacteremia--Possible Endocarditis- Follow BCx results until clear (if able)- CXR appreciated possible PNA vs CHF w/ layering pleural effusion (less likely PNA as per ID) - ID eval appreciated cont empiric Vanc, discontinued empiric zosyn low
suspicion PNA- Echo done at [facility] showed progressed AR. From mild (06/29) to mild - moderate (07/02) to moderate - severe (07/27) - Cardiology / Cardiothoracic Surgery consults appreciated
Persistent Atrial Fibrillation with QT prolongation - s/p MAZE and HARVINDER exclusion on 06/29 - Continue amiodarone, carvedilol- QTc prolonged 505, minimize/avoid use of QT prolonging agents as possible.
Benign Hypertension- Relatively well controlled at this time - cont amlodipine lasix coreg with holding parameters
DM-II - Stable. Hold oral agents for now - SSI coverage as needed.
Bilateral LE DVT/History of DVT / PE - Patient noted on US to have bilateral femoral DVTs at [facility] (07/27) - Changed from Pradaxa to Lovenox per Hematology recommendations - Cont Lovenox 110mg BID- Change to IV heparin for bridging if any intervention
/ surgery is planned.
Anemia--likely chronic disease--consider checking iron studies, B12, folate- no obvious signs of bleeding- repeat H&H appears stable trending up
LIZBETH on CPAP continued
Morbid Obesity due to excess calories - Affects all aspects of care - Encourage healthy diet and increased activity when able with goal of weight reduction.
Ford - Patient arrives at with Ford catheter in place. This was placed at [facility], presumably for I/O determination vs urinary retention - Maintain Ford for now - Eventual trial of void prior to discharge
PT/OT appreciated SNF rehab likely
DVT Prophylaxis: Therapeutic Lovenox
Code Status: Full
Original Note:
Today's Communication/Plan
-
Continue empiric antibiotics
KARL tomorrow
Continue diuresis
Assessment / Plan
Assessment / Plan
A/P: Patient is a 67y F with PMH significant for A-Fib, Obesity, HTN, HLD, DM-II, HFmrEF, valvular heart dz, cardiothoracic surgery, DVT/PE, Endometrial Ca s/p resection/XRT, transferred from [facility] to for evaluation of CHF and possible
endocarditis.
Acute Hypoxemic Respiratory Insufficiency
-Unable to perform KARL today due to tachypnea, will try again tomorrow.
-Currently on 2 L O2 NC.
-Neb treatments in a.m. per pulmonology prior to KARL.
-Positive preliminary blood culture.
-Pneumonia less likely, however will continue with antibiotics for now.
-Procalcitonin noted to be < 0.5 on labs at [facility].
-Continue supportive care with O2, PAP therapy, etc
-Wean O2 supplementation as tolerated
Acute on Chronic HFmrEF
- Daily Weights I/O
- check BNP
- Lasix IV 80mg BID
- Cardiology eval appreciated
Staph Bacteremia
Possible Endocarditis
- Follow BCx results.
- CXR appreciated possible PNA vs CHF w/ layering pleural effusion (less likely PNA as per ID)
- ID eval appreciated cont empiric Vanc, discontinued empiric zosyn low suspicion PNA
- Echo done at [facility] showed progressed AR. From mild (06/29) to mild - moderate (07/02) to moderate - severe (07/27).
- Cardiology / Cardiothoracic Surgery consults appreciated
Persistent Atrial Fibrillation
QT prolongation
- s/p MAZE and HARVINDER exclusion on 06/29.
- Monitor on tele.
- Continue amiodarone, carvedilol.
- QTc prolonged 505, minimize/avoid use of QT prolonging agents as possible.
Benign Hypertension
- Relatively well controlled at this time
- cont amlodipine lasix coreg with holding parameters
DM-II
- Stable. Hold oral agents for now.
- SSI coverage as needed.
Bilateral LE DVT
History of DVT / PE
- Patient noted on US to have bilateral femoral DVTs at [facility] (07/27).
- Changed from Pradaxa to Lovenox per Hematology recommendations.
- Cont Lovenox 110mg BID
- Change to IV heparin for bridging if any intervention / surgery is planned.
Anemia
- no obvious signs of bleeding
- repeat H&H appears stable trending up
-checking Iron TIBC B12 Folate
LIZBETH on CPAP continued
Morbid Obesity due to excess calories
- Affects all aspects of care.
- Encourage healthy diet and increased activity when able with goal of weight reduction.
Ford
- Patient arrives at with Ford catheter in place. This was placed at [facility], presumably for I/O determination.
- Maintain Ford for now.
- Eventual trial of void prior to discharge
PT/OT appreciated SNF rehab
DVT Prophylaxis: Therapeutic Lovenox
Code Status: Full
Anticipated Discharge: 24 - 48 hours
Subjective/Interval History
-
Date of Service: August 03, 2023
Objective Data
-
Vital Signs:
Vital Signs
Temp Pulse Resp BP Pulse Ox
98.2 F 90 20 135/57 95
08/03/23 19:25 08/03/23 18:00 08/03/23 19:25 08/03/23 17:41 08/03/23 19:25
I&O
08/02/23 08/03/23 08/04/23
06:59 06:59 06:59
Intake Total 1010 / 1010 550 / 550
Output Total 975 / 975 2750 / 2750 1375 / 1375
Balance -975 / -975 -1740 / -1740 -825 / -825
Review of Systems
-
History Source: Patient
All other systems: Not reviewed unless documented
Constitutional: Reports No Symptoms; Denies Fever
EENT: Reports No Symptoms Reported
Respiratory: Reports Other (Hypoxic on ambulation)
Cardiac: Reports No Symptoms; Denies Chest Pain or Palpitations
Abdomen/GI: Reports No Symptoms; Denies Abdominal Pain or Nausea
Physical Exam
-
General: No Apparent Distress and Comfortable
Respiratory: Clear to Auscultation and Non Labored Respirations; Negative Wheezes or Crackles
Cardiac: Regular Rhythm and S1/S2
GI: Soft, Nontender, Nondistended and Normal Bowel Sounds
Skin: Warm
Neuro: Awake, Alert and AO x 3
Psych: Calm
Data Reviewed
-
Diagnostic Radiology: Report Reviewed by me and Discussed with Physician
Labs: Labs Reviewed by me and Discussed with Physician
[2023-08-03 21:39] LABS: Glucose - Point of Care 190 mg/dl (70-99)
[2023-08-03 22:48] VITALS: BP 155/74
[2023-08-04] VITALS (10 sets, daily range): BP systolic 107–156; BP diastolic 68–118; PULSE 79–93; O2SAT 98; BMI 43.8
[2023-08-04 05:22] LABS: % Basophils 0.9 % (0-2); % Eosinophils 2.8 % (0-6); % Immature Granulocytes 0.7 % (0-0.5); % Lymphocytes 16.4 % (20.5-51.1); % Monocytes 13.4 % (1.7-9.3); % Neutrophils 65.8 % (42.2-75.2); Absolute Basophils 0.1 10^3/uL (0-0.2); Absolute Eosinophils 0.2 10^3/uL (0-0.7); Absolute Immature Granulocytes 0.1 10^3/uL (0-0.05); Absolute Lymphocytes 1.1 10^3/uL (1.2-3.4); Absolute Monocytes 0.9 10^3/uL (0.1-0.6); Absolute Neutrophils 4.5 10^3/uL (1.4-6.5); Hematocrit 29.3 % (37.0-47.0); Hemoglobin 9.4 g/dL (12.0-16.0); Mean Corp Hgb Conc. 32.1 g/dL (33.0-37.0); Mean Corpuscular Volume 93.6 fL (81.0-99.0); Mean Platelet Volume 9.4 fL (7.4-10.4); Nucleated Red Blood Cells % 0 %; Platelet Count 213 10^3/uL (130-400); Red Blood Cell Count 3.13 10^6/uL (4.20-5.40); Red Cell Dist. Width 15.1 % (11.5-14.5); White Blood Cell Count 6.9 10^3/uL (4.8-10.8)
[2023-08-04 05:38] LABS: Venous Blood Gas B.E. 9.7 mmol/L (-4 to +4); Venous Blood Gas HCO3 35.7 mmol/L (22-27); Venous Blood Gas O2 Sat % 98.3 %; Venous Blood Gas pCO2 55 mmHg (35-48); Venous Blood Gas pH 7.42 (7.32-7.43); Venous Blood Gas pO2 105 mmHg (30-50)
[2023-08-04 05:53] LABS: Vancomycin Random 20.7 ug/ml
[2023-08-04 06:31] LABS: Blood Urea Nitrogen 23 mg/dl (7-17); Calcium 9.3 mg/dl (8.4-10.2); Carbon Dioxide 31 mmol/L (22-30); Chloride 98 mmol/L (98-107); Estimated Creatinine Clearance 47 ml/min; Glucose 119 mg/dl (70-99); Potassium 3.8 mmol/L (3.5-5.1); Sodium 139 mmol/L (135-145)
[2023-08-04 06:42] LABS: Magnesium 2.5 mg/dl (1.6-2.3); Phosphorus 3.9 mg/dl (2.5-4.5)
--- NOTE | 2023-08-04 07:15 | W.PN.HOSP.TC ---
Addendum entered and electronically signed by Marilin Benitez MD 08/04/23 19:09:
Patient seen and examined independently--agree with plan set forth by Dr. Arredondo
GENERAL: well developed, well nourished, female in no apparent distress
HEENT: NC/AT--O2 NC
HEART: irreg irreg--no murmur noted
LUNGS : clear to auscultation bilaterally
ABDOM: soft, nontender, nondistended, + bowel sounds
EXT: no cyanosis, clubbing, or edema
NEUROLOGIC: grossly intact
: ford
Acute Hypoxemic Respiratory Insufficiency--likely due to CHF exac from presumed endocarditis--KARL cancelled due to labored breathing, now on for 08/04--Currently on 2 L O2 NC--Neb treatments in a.m. per pulmonology prior to KARL, given CXR of
bilateral pleural effusions, consult IR for thoracentesis--blood culture positive for coag neg staph-- will continue with antibiotics as per ID--Procalcitonin noted to be < 0.5 on labs at [facility]-Continue supportive care with O2, PAP therapy, etc--Wean
O2 supplementation as tolerated--apprec pulm/cards input--diurese as able
Acute on Chronic HFmrEF - Daily Weights I/O - check BNP - Lasix IV 80mg BID - Cardiology eval appreciated--IR consult for thoracentesis
Staph Bacteremia--Possible Endocarditis- Follow BCx results until clear (if able)- CXR appreciated possible PNA vs CHF w/ layering pleural effusion (less likely PNA as per ID) - ID eval appreciated cont empiric Vanc, discontinued empiric zosyn low
suspicion PNA- Echo done at [facility] showed progressed AR. From mild (06/29) to mild - moderate (07/02) to moderate - severe (07/27) - Cardiology / Cardiothoracic Surgery consults appreciated--consult IR for thoracentesis
Persistent Atrial Fibrillation with QT prolongation - s/p MAZE and HARVINDER exclusion on 06/29 - Continue amiodarone, carvedilol- QTc prolonged 505, minimize/avoid use of QT prolonging agents as possible.
Essential Hypertension- Relatively well controlled at this time - cont amlodipine lasix coreg with holding parameters
DM-II - Stable. Hold oral agents for now - SSI coverage as needed.
Bilateral LE DVT/History of DVT / PE - Patient noted on US to have bilateral femoral DVTs at [facility] (07/27) - Changed from Pradaxa to Lovenox per Hematology recommendations - Cont Lovenox 110mg BID- Change to IV heparin for bridging if any intervention
/ surgery is planned.
Anemia--likely chronic disease--consider checking iron studies, B12, folate- no obvious signs of bleeding- repeat H&H appears stable trending up
LIZBETH on CPAP continued
Morbid Obesity due to excess calories - Affects all aspects of care - Encourage healthy diet and increased activity when able with goal of weight reduction.
Ford - Patient arrives at with Ford catheter in place. This was placed at [facility], presumably for I/O determination vs urinary retention - Maintain Ford for now - Eventual trial of void prior to discharge
PT/OT appreciated SNF rehab likely
DVT Prophylaxis: Therapeutic Lovenox
Code Status: Full
Original Note:
Today's Communication/Plan
-
KARL tomorrow
Continue Abx
Ambulation as tolerated
Coreg increased
Wean supplemental O2 as needed.
Assessment / Plan
Assessment / Plan
A/P: Patient is a 67y F with PMH significant for A-Fib, Obesity, HTN, HLD, DM-II, HFmrEF, valvular heart dz, cardiothoracic surgery, DVT/PE, Endometrial Ca s/p resection/XRT, transferred from [facility] to for evaluation of CHF and possible
endocarditis.
Acute Hypoxemic Respiratory Insufficiency
- Likely CHF exacerbation from presumed Endocarditis.
- KRAL tomorrow
- Neb treatments in today per pulmonology prior to KARL.
- Currently on 3 L O2 NC.
- Positive preliminary blood culture.
- Pneumonia less likely, however will continue with antibiotics for now.
- Procalcitonin noted to be < 0.5 on labs at [facility].
- Continue supportive care with O2, PAP therapy, etc
- Wean O2 supplementation as tolerated
Acute on Chronic HFmrEF
- Daily Weights I/O, weight trending down.
- check BNP
- Continue Lasix IV 80mg BID
- Coreg increased from 3.125-6.25
- Sternal precautions lifted, Pt can perform more activities as tolerated.
- Cardiology eval appreciated
Staph Bacteremia
- Possible Endocarditis
- Follow BCx results, Positive preliminary Cxs
- CXR appreciated possible PNA vs CHF w/ layering pleural effusion (less likely PNA as per ID)
- ID eval appreciated cont empiric Vanc, discontinued empiric zosyn low suspicion PNA
- Echo done at [facility] showed progressed AR. From mild (06/29) to mild - moderate (07/02) to moderate - severe (07/27).
- Cardiology / Cardiothoracic Surgery consults appreciated
Persistent Atrial Fibrillation
QT prolongation
- s/p MAZE and HARVINDER exclusion on 06/29.
- Monitor on tele.
- Continue amiodarone, carvedilol.
- QTc prolonged 505, minimize/avoid use of QT prolonging agents as possible.
Benign Hypertension
- Relatively well controlled at this time
- cont amlodipine lasix coreg with holding parameters
DM-II
- Stable. Hold oral agents for now.
- SSI coverage as needed.
Bilateral LE DVT
History of DVT / PE
- Patient noted on US to have bilateral femoral DVTs at [facility] (07/27).
- Changed from Pradaxa to Lovenox per Hematology recommendations.
- Cont Lovenox 110mg BID
- Change to IV heparin for bridging if any intervention / surgery is planned.
Anemia
- no obvious signs of bleeding
- repeat H&H appears stable trending up
-checking Iron TIBC B12 Folate
LIZBETH on CPAP continued
Morbid Obesity due to excess calories
- Affects all aspects of care.
- Encourage healthy diet and increased activity when able with goal of weight reduction.
Ford
- Patient arrives at with Ford catheter in place. This was placed at [facility], presumably for I/O determination.
- Maintain Ford for now.
- Eventual trial of void prior to discharge
PT/OT appreciated SNF rehab
DVT Prophylaxis: Therapeutic Lovenox
Code Status: Full
Anticipated Discharge: > 48 hours
Subjective/Interval History
-
Date of Service: August 04, 2023
Objective Data
-
Labs:
Laboratory Results
08/04/23
04:47
WBC 6.9
Hgb 9.4 L
Hct 29.3 L
Plt Count 213
Sodium 139
Potassium 3.8
Chloride 98
Carbon Dioxide 31 H
BUN 23 H
Creatinine 1.2 H
Glucose 119 H
Calcium 9.3
Vital Signs:
Vital Signs
Temp Pulse Resp BP Pulse Ox
98.5 F 87 20 138/91 98
08/04/23 04:24 08/04/23 05:30 08/04/23 04:24 08/04/23 04:20 08/04/23 04:24
I&O
08/03/23 08/04/23 08/05/23
06:59 06:59 06:59
Intake Total 1010 / 1010 550 / 550
Output Total 2750 / 2750 2575 / 2575
Balance -1740 / -1740 -2024 /
Review of Systems
-
History Source: Patient
All other systems: Not reviewed unless documented
Constitutional: Reports No Symptoms; Denies Fever
EENT: Reports No Symptoms Reported
Respiratory: Reports Other (Hypoxic on ambulation)
Cardiac: Reports No Symptoms; Denies Chest Pain or Palpitations
Abdomen/GI: Reports No Symptoms; Denies Abdominal Pain or Nausea
Physical Exam
-
General: No Apparent Distress and Comfortable
Respiratory: Clear to Auscultation and Non Labored Respirations; Negative Wheezes or Crackles
Cardiac: Regular Rhythm and S1/S2
GI: Soft, Nontender, Nondistended and Normal Bowel Sounds
Musculoskeletal: No Clubbing
Skin: Warm
Neuro: Awake, Alert and AO x 3
Psych: Calm
Data Reviewed
-
Diagnostic Radiology: Report Reviewed by me and Discussed with Physician
Labs: Labs Reviewed by me and Discussed with Physician
[2023-08-04] MEDS: XOPENEX 1.25 MG INHALANT SOLUTION INH (07:42)
[2023-08-04] MEDS: ATROVENT NEBULES 0.5 MG INH (07:42)
--- NOTE | 2023-08-04 09:02 | PHA.VAN.FU ---
Addendum entered and electronically signed by Leigh Fernandez [facility] 08/04/23 09:05:
Correction: previous level of 29 was drawn while dose was infusing and calculated PK is not accurate below.
However, level drawn ~23.5H after 3rd dose of 1500mg (one received at OSH). Will continue to hold off on dosing today as level essentially a trough and is elevated.
Random in AM
Original Note:
Vancomycin Assessment / Plan
- Assessment
Renal Function: Stable
WBC's are: WNL
In the past 24 hrs, patient has been: Afebrile
- Assessment - Therapeutic Drug Monitoring
Random Level: 20.7 - drawn ~23.5H after previous level of 29
Calculated ke: 0.0144
Calculated half life (H): 48.1
Patient's level expected to remain > 10 for over 48H
- Dosing Plan
Dosing by Level: Hold off on dosing today
- Monitoring Plan
Random Level: 08/04 0600 to continue to trend
- Follow Up
Pharmacy will continue to follow.
Vancomycin Follow UP
- -
Patient Age: 67
Patient Sex: Female
Vancomycin Day #: 3
Indication: Bacteremia
Requesting Provider: Dr. Lopez / Prachi
Pertinent Antimicrobial Allergies:
oxytetracycline - hives
Height / Weight:
Height 5 ft
Actual Weight 101.661 kg
IBW in k.5
Adjusted BW in k.2
Pertinent Past Medical History: BMI ~45, DM
- Vital Signs / Lab Results
Temp Pulse Resp BP Pulse Ox
98.5 F 91 16 138/91 98
08/04/23 04:24 08/04/23 07:47 08/04/23 07:47 08/04/23 04:20 08/04/23 04:24
Lab Results - Hematology
08/02/23 08/03/23 08/04/23
05:50 05:22 04:47
WBC 5.5 7.0 6.9
Lab Results - Chemistry
08/02/23 08/02/23 08/03/23
05:50 13:23 05:22
BUN 16 18 H 18 H
Creatinine 1.0 1.2 H 1.2 H
Estimated Creat Clear 58 48 48
Albumin 2.6 L
08/04/23
04:47
BUN 23 H
Creatinine 1.2 H
Estimated Creat Clear 47
Albumin
Microbiology Results
08/02/23 01:17 Blood Culture - Preliminary
Blood/Venous Coagulase neg. staphylococcus
Additional testing on request
Gram Stain - Preliminary
08/03/23 05:22 Blood Culture - Preliminary
Blood/Venous No Growth in 24 hours- Final report to follow
08/02/23 01:23 Blood Culture - Preliminary
Blood/Venous No Growth in 48 hours- Final report to follow
Therapeutic Drug Monitoring
Random Vancomycin 20.7 ug/ml 08/04/23 04:47
[2023-08-04 09:17] LABS: Glucose - Point of Care 130 mg/dl (70-99)
[2023-08-04] MEDS: NOVOLOG FLEXPEN-LOW RESISTANCE SC (10:14)
[2023-08-04] MEDS: LASIX 80 MG IV ×2 (10:23→18:11)
[2023-08-04] MEDS: METAMUCIL, KONSYL 1 PACKET PO (10:23)
[2023-08-04] MEDS: KLOR-CON 20 MEQ PO ×2 (10:24→21:13)
[2023-08-04] MEDS: NORVASC 7.5 MG PO (10:25)
[2023-08-04] MEDS: LOW STRENGTH ASPIRIN 81 MG PO (10:25)
[2023-08-04] MEDS: FEOSOL 325 MG PO (10:25)
[2023-08-04] MEDS: COREG 3.125 MG PO (10:25)
[2023-08-04] MEDS: PACERONE 200 MG PO (10:25)
[2023-08-04] MEDS: PROTONIX 40 MG PO (10:25)
--- NOTE | 2023-08-04 10:30 | W.PN.CARDCBS ---
Addendum entered and electronically signed by Dioni Nuno MD 08/04/23 12:21:
I saw and examined the patient.
The SOLE PAINTER or PA's note was reviewed and I agree with the note.
Comment: General: Well developed, well nourished in NAD.
Neck: Supple, no JVD, HJR, carotids +2 B/L, no bruits bilaterally.
Heart: Non displaced PMI, Irreg, no murmurs, No S3, S4, no rubs.
Lungs: Scattered rhonchi
Sternotomy well-healed
Extremities: No clubbing, cyanosis or edema bilaterally.
Neuro: Grossly nonfocal, awake, alert and oriented x3.
She is doing okay. Will continue IV diuresis with Lasix. Will increase Coreg for heart rate control of A-fib. Has been in A-fib since July 09, 2023. May consider outpatient cardioversion. She will have KARL done on 08/04 to evaluate degree of
aortic insufficiency.
Original Note:
Today's Communication / Plan
-
NPO for KARL in AM
continue abx
follow BCx
continue IV lasix
increase coreg
Impression / Plan
-
Primary Client Server Developer: Dr. Hiren Peters of [facility]
Assessment:
Shortness of breath, weakness
Possible endocarditis with Staph epidermidis bacteremia
Heart failure with preserved ejection fraction
Worsening of aortic valve insufficiency suspected
Previous symptomatic mod to severe MR s/p bioprosthetic MVR, TV repair, MAZE, HARVINDER clip 06/30/23
SSS s/p [employer] DC PPM 2017/revision 2023
-Abandoned right atrial lead, nonfunctional, status post right atrial lead revision and generator change 06/2023
Persistent afib (recurrent)
-Previously on chronic sotalol and pradaxa therapy
-Cardioversion 07/06/2023 to sinus rhythm on amiodarone
Bilateral DVT per hematology at [facility] appears to be failure of Pradaxa now on Lovenox
-History of DVT/PE in 2012
HTN
HLD
NIDDM
NSVT
Obesity
Chronic venous insufficiency/chronic lymphedema
Testing at [facility]:
CT chest was done (07/31/23) showing no PE, bibasilar infiltrates v atelectasis and bilateral pleural effusions.
Echo was done (07/28/23) showing large L pleural effusion and moderate - severe AR (previously moderate here on 07/02). LVEF was 45-50%.
TTE 04/27/2023 at [facility]: EF 55 to 60%, normal RV function, moderate to severe eccentric MN
KARL 04/29/23 at [facility]: Moderately severe dilated left atrium, moderately dilated right atrium, moderate to severe eccentric MN with moderate TI, EF felt to be mildly reduced visually
Echocardiogram July 03, 2023, EF 50%, status post mitral valve replacement with no MR and mean gradient of 4, mild to moderate aortic regurgitation, status post tricuspid valve repair with mild TR. PA pressure 35-40. No significant pericardial
effusion.
ECHO 07/03/23: EF 50%, status post chordal sparing mitral valve replacement, no MR seen, peak/mean gradients 12/4 mmHg, mild to moderate AR, TV repair with 28 mm band annuloplasty with mild TR, PAP 35 to 40 mmHg, mild to moderate ID, prominent
anterior fat pad with no significant pericardial effusion
Plan:
-She is complicated. status post bioprosthetic MVR, TV repair, MAZE, HARVINDER clip 06/30/23. She presented with constitutional symptoms and shortness of breath.
-she reports breathing is ok at rest on supp O2. continue IV lasix diuresis. Cr stable at 1.2
-wean supp O2 as able
-blood culture from [facility] with staph epidermis and repeat 1 of 2 from 08/01 at with coag neg staph. repeats negative thus far. sternotomy and pacemaker site well healing without open areas. ID following. continue abx.
-echo from [facility] with concern for worsening AI. MV and TV appear stable.
-NPO for KARL in AM
-has been in afib since 07/09/23 by device interrogation. rate controlled on review of tele. continue amiodarone 200mg daily.
-BPs stable on norvasc 7.5mg daily and coreg 3.125mg BID. will increase coreg dose to 6.25mg BID
-currently on OAC with lovenox for afib and DVT (was on pradaxa when developed clot). hgb 9.4
-d/w nursing
Progress Note - Client Server Developer
Subjective
Date of Service: August 04, 2023
Reports breathing okay at rest on supplemental oxygen
Objective
Labs:
08/04/23 04:47
08/04/23 04:47
Labs
Hgb 9.4 g/dL (12.0-16.0) L 08/04/23 04:47
Hct 29.3 % (37.0-47.0) L 08/04/23 04:47
Plt Count 213 10^3/uL (130-400) 08/04/23 04:47
Sodium 139 mmol/L (135-145) 08/04/23 04:47
Potassium 3.8 mmol/L (3.5-5.1) 08/04/23 04:47
BUN 23 mg/dl (7-17) H 08/04/23 04:47
Creatinine 1.2 mg/dL (0.6-1.0) H 08/04/23 04:47
Glucose 119 mg/dl (70-99) H 08/04/23 04:47
Troponins
08/02/23 08/02/23 08/02/23
01:17 13:23 19:51
Troponin I 0.016 0.019 0.019
Vital Signs and I&O:
Vital Signs
Temp Pulse Resp BP Pulse Ox
98.5 F 95 16 138/91 98
08/04/23 04:24 08/04/23 09:00 06/18/24 07:47 08/04/23 04:20 08/04/23 04:24
Vital Signs
Temp Pulse Resp BP Pulse Ox
98.5 F 95 16 138/91 98
08/04/23 04:24 08/04/23 09:00 08/04/23 07:47 08/04/23 04:20 08/04/23 04:24
Intake & Output
08/02/23 08/03/23 08/04/23 08/05/23
07:59 07:59 07:59 07:59
Intake Total 1010 / 1010 550 / 550
Output Total 975 / 975 2750 / 2750 2575 / 2575
Balance -975 / -975 -1740 / -1740 -2024 / -2024
Physical Exam
Physical Exam
GEN: No distress, awake, alert, oriented x3. appears chronically ill, older than stated age. on supp O2. obese
HEENT: supple, anicteric, mmm, eomi
LUNGS: CTA B/L, no wheezes/rales
CV: Irreg, S1/S2, 2/6 murmur
ABD: soft, BS+, NT/ND
EXT: No cyanosis, clubbing. trace edema of B/L LE with chronic B/L skin discoloration.
NEURO: Gross non-focal
SKIN: Warm, pink, dry. No rash. sternotomy and pacemaker incision sites c/d/i, well healing.
[2023-08-04] MEDS: RESTASIS 0.05% OPHTHALMIC EMULSION 1 DROPS OPHTH ×2 (10:37→21:13)
[2023-08-04] MEDS: LOVENOX 110 MG SC ×2 (10:45→21:12)
--- NOTE | 2023-08-04 12:33 | W.PN.PUL3 ---
Today's Communication / Plan
-
Aggressive diuresis as tolerated
Replete K>4, Mg>2 while diuresing
Abx as per ID
Doubtful thoracentesis has any high utility given she is in acute heart failure and her pleural fluid would likely reaccumulate - continue diuresis as above
Up OOB as tolerated
Maintain SpO2 >90-94% with supplemental oxygen and wean as tolerated
PT/OT
Assessment
-
Assessment: 67-year-old female with a past medical history of SSS s/p with recent replacement of right atrial lead given prior was nonfunctional, valvular heart disease with moderate�severe MR s/p bioprosthetic MVR, TV repair, persistent A-fib on
chronic sotalol and Pradaxa, chronic HFpEF, LIZBETH on CPAP, history of PE/DVT, chronic lymphedema and history of endometrial carcinoma who presents with SOB + weakness. Patient was recently hospitalized from 06/29ue to mitral valve
replacement and was discharged to acute rehab facility. She was admitted to outside hospital ([facility]) and required ICU level of care due to hypoxia. She was treated for pneumonia and CHF exacerbation with antibiotics and IV Lasix.
Blood cultures were reportedly positive for S. epidermidis, and CT chest there showed no PE with bibasilar infiltrates versus atelectasis and bilateral pleural effusions. She also had an echo done on 07/27 that reportedly showed a large left-sided
pleural effusion with moderate to severe AI with an LVEF mildly reduced at 45-50%. There was concern for possible endocarditis and she was transferred here to for further treatment. She was admitted to the IVU under the hospitalist, with
cardiothoracic surgery, ID and cardiology consulted. The patient's device was interrogated today showing normal function with no abnormality seen. Patient has been in persistent A-fib starting on July 09, 2023. Cardiology is planning to perform
KARL to reevaluate her recently placed bioprosthetic mitral valve replacement as well as TV repair and evaluate severity of aortic insufficiency noted by [facility]. Pulmonary service now consulted for risk stratification for KARL.
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
and HARVINDER clip (06/30/2023), persistent A-fib on chronic sotalol and Pradaxa, chronic HFpEF, hypertension, hyperlipidemia, DM type II, history of NSVT, obesity, chronic venous insufficiency, chronic lymphedema, history of endometrial carcinoma, history
of PE/DVT, LIZBETH on CPAP, nonobstructive CAD, gout, morbid obesity, ambulatory dysfunction requiring walker
Impression:
#Acute respiratory failure with hypoxia due to acute decompensated heart failure/acute HFmrEF exacerbation; doubt bacterial PNA given absent leukocytosis and clinical Sx of PNA are lacking
#SANA
#Contraction alkalosis due to diuresis
#Staph bacteremia � coagulase-negative
#SSS s/p PPM with recent replacement of right atrial lead due to dysfunction
#Moderate�severe MR with recent bioprosthetic MVR, TV repair, biatrial MAZE and HARVINDER exclusion � OR date: 06/30/2023
#hx of DVT/PE
#LIZBETH on CPAP
#CAD
#Morbid obesity
#Chronic venous insufficiency/lymphedema
Plan:
- Patient went down for KARL on 08/02 but could not lay flat for procedure - pt has multifactorial reasons for this being in acute heart failure, obesity, deconditioning and hemorrhoidal pain
- Of note, her last KARL was on 06/30/2023 and she tolerated this with no complications
- Patient is high risk for a low�intermediate risk procedure given her acute CHF exacerbation with bacteremia and sepsis; use conscious sedation as opposed to general anesthesia with MAC
- She has developed a contraction alkalosis - her serum HCO3 level has improved today and her pH shows a pH of 7.42 --> no need for diamox at this time; continue to monitor; if pH>7.45 with sHCO3 >35 then would tx with diamox 250mg x1
- Continue with diuresis as per cardiology --> patient is now net negative 4.9L since admission
- prn nebulized bronchodilators with atrovent and xopenex (given A-fib) --> would give a neb treatment tomorrow AM prior to going down for KARL to help prevent any bronchospasm that may occur and reduce her risk of complications while getting KARL
- Would also give preparation H treatment in the AM prior to her KARL to help prevent any pain that she could experience during her procedure or while transferring to the bed and then laying flat
- Unclear if thoracentesis is indicated given she is in acute heart failure and the pleural fluid would likely reaccumulate; continue with diuresis as aggressive as tolerated
- Continue CPAP with sleep
- Maintain SpO2 >90-94% with supplemental O2 as needed
- Abx as per ID
- Follow up infectious workup and follow up BCx collected at OSH ([facility])
- Incentive spirometer encouraged
- Replete electrolytes with K>4, Mg>2
- Maintain euglycemia with goal BG >100 and <180
- PT/OT; pain control
- DVT ppx
Pulmonary service will continue to follow along.
Total time spent today was 50 minutes for this encounter. Time includes reviewing laboratory test/imaging results, reviewing pertinent medical records, obtaining and reviewing medical history, performing an appropriate exam, ordering medications,
tests and procedures. Time also includes documentation of this encounter, coordinating patient care and communicating with other healthcare professionals. Total time does not include separately billed tests performed on this date of service.
Data:
CXR 08-02-2023:
Progressed findings suggesting bilateral lower lobe, right upper lobe and left perihilar pneumonia. Clinical and laboratory correlation recommended. CHF with layering pleural effusions cannot be completely excluded.
Mild cardiomegaly. Stable
Subjective Data
-
Date of Service:
Date of Service: August 04, 2023
Chief Complaint: Pulmonary Follow Up
Subjective:
Seen and evaluated today at bedside. CXR today shows continued bilateral pleural effusions. She continues to be on 2 L/min nasal cannula, breathing comfortably. Heart rate 95, SpO2 98%. She denies chest pain, headache, fevers or chills.
Review of Systems
General: Other (Negative unless mentioned above)
Objective Data
Data Reviewed
Vital Signs / I&O / Oxygen:
Vital Signs
Temp Pulse Resp BP Pulse Ox
98.6 F 94 20 156/73 98
08/04/23 11:26 08/04/23 11:26 08/04/23 11:26 08/04/23 10:23 08/04/23 04:24
Intake and Output
08/03/23 08/04/23 08/05/23
06:59 06:59 06:59
Intake Total 1010 / 1010 550 / 550
Output Total 2750 / 2750 2575 / 2575
Balance -1740 / -1740 -2024 / -2024
SaO2 98
Nasal Cannula flow liters per 2
minute
Physical Exam
General: Respiratory Distress (Negative), Comfortable and Chills (Negative)
HEENT: Normocephalic and Anicteric
Cardiovascular: Irregular Rhythm, Peripheral Edema (+1 lower extremity pitting edema) and Other (Normal heart rate)
Respiratory: Wheeze (Negative), Crackles (Bibasilar), Rhonchi (Negative), Non-Labored Respirations and Other (Diminished breath sounds in the bases)
GI: Soft, Distended (Abdominal obesity), Non Tender and Normal Bowel Sounds
Neurology: Awake, Alert and Tremors (Negative)
Skin: Warm, Dry and Jaundice (Negative)
Labs/Micro/Reports
Lab Data
08/04/23 04:47
08/04/23 04:47
Microbiology
08/02/23 01:17 Blood/Venous Blood Culture - Preliminary
Coagulase neg. staphylococcus
Additional testing on request
08/02/23 01:17 Blood/Venous Gram Stain - Preliminary
08/03/23 05:22 Blood/Venous Blood Culture - Preliminary
No Growth in 24 hours- Final report to follow
08/02/23 01:23 Blood/Venous Blood Culture - Preliminary
No Growth in 48 hours- Final report to follow
[2023-08-04] MEDS: MIRALAX PO (13:56)
[2023-08-04] MEDS: NOVOLOG FLEXPEN-LOW RESISTANCE 2 UNITS SC (13:57)
[2023-08-04 14:04] LABS: Glucose - Point of Care 248 mg/dl (70-99)
[2023-08-04 16:36] LABS: Glucose - Point of Care 160 mg/dl (70-99)
[2023-08-04] MEDS: NOVOLOG FLEXPEN-LOW RESISTANCE 1 UNITS SC (17:03)
[2023-08-04] MEDS: MIRALAX 17 GRAMS PO (18:24)
[2023-08-04] MEDS: COREG 6.25 MG PO (21:12)
[2023-08-04 22:06] LABS: Glucose - Point of Care 210 mg/dl (70-99)
[2023-08-05] VITALS (10 sets, daily range): BP systolic 91–152; BP diastolic 51–92; PULSE 86; O2SAT 96; BMI 44.5
[2023-08-05] MEDS: TYLENOL 650 MG PO (04:16)
--- NOTE | 2023-08-05 05:23 | DOWNTIME ---
There was a [employer] Client Manager Of [employer]ruiting Downtime on 08/05/2023 from 0100 to 08/05/2023 at 0337. Downtime documentation of patient's care, including medication administrations, has been reconciled in the electronic record per guidelines. Refer to the
patient's paper chart under the miscellaneous tab to see printed paper medication records and downtime forms.
[2023-08-05 05:25] LABS: Hematocrit 28.7 % (37.0-47.0); Mean Corp Hgb Conc. 31.4 g/dL (33.0-37.0); Mean Corpuscular Hgb 30.1 pg (27.0-31.0); Mean Platelet Volume 9.5 fL (7.4-10.4); Platelet Count 177 10^3/uL (130-400); Red Blood Cell Count 2.99 10^6/uL (4.20-5.40); Red Cell Dist. Width 15.3 % (11.5-14.5); White Blood Cell Count 6.6 10^3/uL (4.8-10.8)
[2023-08-05 06:10] LABS: Vancomycin Random 13.9 ug/ml
[2023-08-05 06:16] LABS: Blood Urea Nitrogen 28 mg/dl (7-17); Calcium 8.9 mg/dl (8.4-10.2); Carbon Dioxide 33 mmol/L (22-30); Chloride 97 mmol/L (98-107); Estimated Creatinine Clearance 52 ml/min; Glucose 134 mg/dl (70-99); Magnesium 2.3 mg/dl (1.6-2.3); Phosphorus 3.7 mg/dl (2.5-4.5); Potassium 3.6 mmol/L (3.5-5.1); Sodium 138 mmol/L (135-145); eGFR 54.39
--- NOTE | 2023-08-05 06:32 | W.PN.HOSP.TC ---
Addendum entered and electronically signed by Marilin Benitez MD 08/05/23 21:17:
Patient seen and examined independently--agree with plan set forth by Dr. Arredondo
GENERAL: well developed, well nourished, female in no apparent distress
HEENT: NC/AT--O2 NC
HEART: irreg irreg--no murmur noted
LUNGS : clear to auscultation bilaterally
ABDOM: soft, nontender, nondistended, + bowel sounds
EXT: no cyanosis, clubbing, or edema
NEUROLOGIC: grossly intact
: ford
Acute Hypoxemic Respiratory Insufficiency--likely due to CHF exac from presumed endocarditis (subsequently ruled out)--KARL 08/04 without eveidence of vegetations--Currently on 2 L O2 NC- CXR of bilateral pleural effusions, apprec IR for
thoracentesis, 500mls removed--blood culture positive for coag neg staph, otherwise neg-- will continue with antibiotics as per ID--Procalcitonin noted to be < 0.5 on labs at [facility]-Continue supportive care with O2, PAP therapy, etc--Wean O2
supplementation as tolerated--apprec pulm/cards input--diurese as able
Acute on Chronic diastolic (preserved EF) - Daily Weights I/O - check BNP - Lasix IV 80mg BID - Cardiology eval appreciated--apprec IR consult for thoracentesis
Staph Bacteremia-- Endocarditis ruled out- Follow BCx results until clear-- CXR appreciated possible PNA vs CHF w/ layering pleural effusion (less likely PNA as per ID) - ID eval appreciated cont empiric Vanc, discontinued empiric zosyn low
suspicion PNA- Echo done at [facility] showed progressed AR. From mild (06/29) to mild - moderate (07/02) to moderate - severe (07/27) - Cardiology Cardiothoracic Surgery consults appreciated
Persistent Atrial Fibrillation with QT prolongation - s/p MAZE and HARVINDER exclusion on 06/29 - Continue amiodarone, carvedilol- QTc prolonged 505, minimize/avoid use of QT prolonging agents as possible.
Essential Hypertension- Relatively well controlled at this time - cont amlodipine, lasix, coreg with holding parameters
DM-II - Stable. Hold oral agents for now - SSI coverage as needed.
Bilateral LE DVT/History of DVT / PE - Patient noted on US to have bilateral femoral DVTs at [facility] (07/27) - Changed from Pradaxa to Lovenox per Hematology recommendations - Cont Lovenox 110mg BID- Change to IV heparin for bridging if any intervention
/ surgery is planned.
Anemia--likely chronic disease--consider checking iron studies, B12, folate- no obvious signs of bleeding- repeat H&H appears stable trending up
LIZBETH on CPAP continued
Morbid Obesity due to excess calories - Affects all aspects of care - Encourage healthy diet and increased activity when able with goal of weight reduction.
Ford - Patient arrives at with Ford catheter in place. This was placed at [facility], presumably for I/O determination vs urinary retention - Maintain Ford for now - Eventual trial of void prior to discharge
PT/OT appreciated SNF rehab likely
DVT Prophylaxis: Therapeutic Lovenox
Code Status: Full
d/c planning
Original Note:
Today's Communication/Plan
-
Potential thoracentesis today
KARL today
Continue antibiotics
Trend H&H
I&O's, trend weight
Assessment / Plan
Assessment / Plan
A/P: Patient is a 67y F with PMH significant for A-Fib, Obesity, HTN, HLD, DM-II, HFmrEF, valvular heart dz, cardiothoracic surgery, DVT/PE, Endometrial Ca s/p resection/XRT, transferred from [facility] to for evaluation of CHF and possible
endocarditis.
Acute Hypoxemic Respiratory Insufficiency
- Likely due to acute decompensated HF/HFmrEF vs pneumonia.
-Previously suspected to have endocarditis
- Patient tolerated KARL with additional TTE today, no evidence of endocarditis or mitral regurgitation but mild tricuspid regurgitation and mild/moderate pulmonic regurgitation.
- CXR 08/04/23 with b/l Pleural effusion.
-S/p right thoracentesis 08/05/2023 with removal of 500 cc serosanguineous purulent fluid, subsequent CXR negative for pneumothorax.
- Improved, currently on room air SaO2 95%
- Procalcitonin noted to be < 0.5 on labs at [facility].
- Continue supportive care with O2, PAP therapy, etc
- Wean O2 supplementation as tolerated
- Cardiology / Cardiothoracic Surgery consults appreciated
- PT/OT
-Pain control.
Acute on Chronic HFmrEF
- Daily Weights I/O, weight is up.
- Continue Lasix IV 80mg BID
- Coreg increased from 3.125-6.25
- Sternal precautions lifted, up and walking around as tolerated.
- check BNP
- Cardiology eval appreciated
Staph Bacteremia
- Coagulase-negative staph bacteremia
- Follow BCx results, Positive preliminary Cxs.
-Continue empiric vancomycin while waiting for blood cultures per ID. Empiric Zosyn discontinued previously for low suspicion of pneumonia.
- CXR appreciated possible PNA vs CHF w/ layering pleural effusion (less likely PNA as per ID)
-ID recs appreciated
- Echo done at [facility] showed progressed AR. From mild (06/29) to mild - moderate (07/02) to moderate - severe (07/27).
Persistent Atrial Fibrillation
QT prolongation
- s/p MAZE and HARVINDER exclusion on 06/29.
- Monitor on tele.
- Continue amiodarone, carvedilol.
- QTc prolonged 505, minimize/avoid use of QT prolonging agents as possible.
Benign Hypertension
- Relatively well controlled at this time
- cont amlodipine lasix coreg with holding parameters
DM-II
- Stable. Hold oral agents for now.
- SSI coverage as needed.
Bilateral LE DVT
History of DVT / PE
- Patient noted on US to have bilateral femoral DVTs at [facility] (07/27).
- Changed from Pradaxa to Lovenox per Hematology recommendations.
- Cont Lovenox 110mg BID
- Change to IV heparin for bridging if any intervention / surgery is planned.
Anemia
- no obvious signs of bleeding
-Follow H&H, Hb down to 9.0 today.
-Iron TIBC B12 Folate all WNL
LIZBETH on CPAP continued
Morbid Obesity due to excess calories
- Affects all aspects of care.
- Encourage healthy diet and increased activity when able with goal of weight reduction.
Ford
- Patient arrives at with Ford catheter in place. This was placed at [facility], presumably for I/O determination.
- Maintain Ford for now.
- Eventual trial of void prior to discharge
PT/OT appreciated SNF rehab
DVT Prophylaxis: Therapeutic Lovenox
Code Status: Full
Anticipated Discharge: > 48 hours
Subjective/Interval History
-
Date of Service: August 05, 2023
Objective Data
-
Labs:
Laboratory Results
08/05/23 08/05/23
05:13 05:47
WBC 6.6
Hgb 9.0 L
Hct 28.7 L
Plt Count 177
Sodium 138
Potassium 3.6
Chloride 97 L
Carbon Dioxide 33 H
BUN 28 H
Creatinine 1.1 H
Glucose 134 H Pending
Calcium 8.9
Vital Signs:
Vital Signs
Temp Pulse Resp BP Pulse Ox
97.8 F 89 20 152/77 93
08/05/23 03:05 08/05/23 05:30 08/05/23 03:05 08/05/23 04:07 08/05/23 04:07
I&O
08/03/23 08/04/23 08/05/23
06:59 06:59 06:59
Intake Total 1010 / 1010 550 / 550 600 / 600
Output Total 2750 / 2750 2575 / 2575 1225 / 1225
Balance -1740 / -1740 -2024 / -2024 - / -
Review of Systems
-
History Source: Patient
All other systems: Not reviewed unless documented
Constitutional: Reports No Symptoms; Denies Fever
EENT: Reports No Symptoms Reported
Respiratory: Reports Other (Hypoxic on ambulation)
Cardiac: Reports No Symptoms; Denies Chest Pain or Palpitations
Abdomen/GI: Reports No Symptoms; Denies Abdominal Pain or Nausea
Endocrine: Reports No Symptoms
Physical Exam
-
General: No Apparent Distress and Comfortable
Respiratory: Rhonchi and Non Labored Respirations
GI: Soft, Nontender, Nondistended and Normal Bowel Sounds
Musculoskeletal: No Clubbing
Skin: Warm
Neuro: Awake, Alert and AO x 3
Psych: Calm
Data Reviewed
-
Diagnostic Radiology: Report Reviewed by me and Discussed with Physician
Labs: Labs Reviewed by me and Discussed with Physician
Old Records: Reviewed
[2023-08-05 07:40] LABS: Glucose - Point of Care 161 mg/dl (70-99)
--- NOTE | 2023-08-05 08:26 | PHA.VAN.FU ---
Vancomycin Assessment / Plan
- Assessment
Renal Function: Stable
WBC's are: WNL
In the past 24 hrs, patient has been: Afebrile
- Assessment - Therapeutic Drug Monitoring
Random Level: 13.9 - drawn ~24H after previous level of 20.7
Calculated ke: 0.0163
Calculated half life (H): 42.5
Last dose - 1500mg 08/02 05:13 (~48H before today's level)
- Dosing Plan
Dosing by Level: Re-dose today (Vanc 1500mg)
Dosing Comments: may require Q48H interval
- Monitoring Plan
Random Level: 08/05 0600
Attempted to obtain peak to more accurately assess patient's half-life; however, level was not able to be drawn in the 1-3 H window post end of infusion and thus accuracy would still be decreased.
Will obtain random level in AM with goal to obtain 2nd level Thursday to trend half-life
- Follow Up
Pharmacy will continue to follow.
Vancomycin Follow UP
- -
Patient Age: 67
Patient Sex: Female
Vancomycin Day #: 4
Indication: Bacteremia
Requesting Provider: Dr. Lopez / Prachi
Pertinent Antimicrobial Allergies:
oxytetracycline - hives
Height / Weight:
Height 5 ft
Actual Weight 103.328 kg
IBW in k.5
Adjusted BW in k.2
Pertinent Past Medical History: BMI ~45, DM
- Vital Signs / Lab Results
Temp Pulse Resp BP Pulse Ox
98.0 F 88 20 116/51 96
08/05/23 07:30 08/05/23 08:15 08/05/23 07:30 08/05/23 07:31 08/05/23 07:30
Lab Results - Hematology
06/17/24 06/18/24 06/19/24
05:22 04:47 05:13
WBC 7.0 6.9 6.6
Lab Results - Chemistry
08/02/23 08/03/23 08/04/23
13:23 05:22 04:47
BUN 18 H 18 H 23 H
Creatinine 1.2 H 1.2 H 1.2 H
Estimated Creat Clear 48 48 47
08/05/23
05:13
BUN 28 H
Creatinine 1.1 H
Estimated Creat Clear 52
Microbiology Results
08/03/23 05:22 Blood Culture - Preliminary
Blood/Venous No Growth in 48 hours- Final report to follow
08/04/23 04:47 Blood Culture - Preliminary
Blood/Venous No Growth in 24 hours- Final report to follow
08/02/23 01:23 Blood Culture - Preliminary
Blood/Venous No Growth in 72 hours- Final report to follow
08/02/23 01:17 Blood Culture - Preliminary
Blood/Venous Coagulase neg. staphylococcus
Additional testing on request
Gram Stain - Preliminary
Therapeutic Drug Monitoring
Random Vancomycin 13.9 ug/ml 08/05/23 05:13
[2023-08-05] MEDS: NOVOLOG FLEXPEN-LOW RESISTANCE 1 UNITS SC ×2 (08:29→18:10)
[2023-08-05] MEDS: LOVENOX 110 MG SC ×2 (08:34→20:25)
[2023-08-05] MEDS: LASIX 80 MG IV ×2 (08:35→18:02)
[2023-08-05] MEDS: COREG 6.25 MG PO ×2 (08:36→20:24)
[2023-08-05] MEDS: RESTASIS 0.05% OPHTHALMIC EMULSION 1 DROPS OPHTH ×2 (08:37→20:24)
[2023-08-05] MEDS: NORVASC 7.5 MG PO (08:37)
[2023-08-05] MEDS: PACERONE 200 MG PO (08:39)
[2023-08-05] MEDS: PROTONIX 40 MG PO (08:40)
[2023-08-05] MEDS: LOW STRENGTH ASPIRIN 81 MG PO (08:40)
--- NOTE | 2023-08-05 08:54 | W.PN.ID1 ---
Date of Service
Date of Service: August 05, 2023
Today's Communication
Continue vancomycin.
Assessment / Plan
Coag negative staph bacteremia in the context of recent valve replacement
Progressive shortness of breath
Suspected exacerbation of CHF
HTN
A-fib
DM
Obesity
CHF
Hx DVT
Hx endometrial CA (s/p SX and XRT)
Recommendations:
Continue vancomycin for the present while further blood cultures are pending.
Given lack of respiratory symptomatology and normal white count, doubt current PNA. Zosyn previously discontinued.
Spoke with [facility] microbiology department ([phone]). Full cultures to be faxed to my office.
For KARL today.
Monitor white count and temperature curve.
����������������������������������������������������������
Chief Complaint
-: Bacteremia
Subjective / Review of Systems
Review of Systems: No Fever and No Chills
Vital Signs / Physical Exam
Vital Signs
Vital Signs
Temp Pulse Resp BP Pulse Ox
98.0 F 88 20 116/51 96
08/05/23 07:30 08/05/23 08:15 08/05/23 07:30 08/05/23 07:31 08/05/23 07:30
Physical Exam
Constitutional: No Acute Distress, Comfortable, Chronically Ill and Non-toxic
Eyes: No Conjunctival Hemorrhage and Sclera Anicteric
Cardiovascular: S1/S2; Negative S3/S4
Pulmonary: Non Labored; Negative Wheezes or Rales
Gastrointestinal: Soft and Non Distended
Extremities: Edema and Venous Insufficiency (severe; B/L LE's)
Skin: Negative Jaundice
Neurological: Awake and Alert
Psychological: Calm
Objective Data
Lab Data
Lab Results
08/05/23 05:13
Estimated Creat Clear 52 ml/min 08/05/23 05:13
Total Bilirubin 0.7 mg/dl (0.2-1.3) 08/02/23 05:50
AST 20 U/L (14-36) 08/02/23 05:50
ALT 12 U/L (0-35) 08/02/23 05:50
Alkaline Phosphatase 68 U/L (38-126) 08/02/23 05:50
Most recent labs reviewed.
Micro Results:
08/03/23 05:22 Blood Culture - Preliminary
Blood/Venous No Growth in 48 hours- Final report to follow
08/05/23 05:13 Blood Culture - Pending
Blood/Venous
08/04/23 04:47 Blood Culture - Preliminary
Blood/Venous No Growth in 24 hours- Final report to follow
08/02/23 01:23 Blood Culture - Preliminary
Blood/Venous No Growth in 72 hours- Final report to follow
08/02/23 01:17 Blood Culture - Preliminary
Blood/Venous Coagulase neg. staphylococcus
Additional testing on request
Gram Stain - Preliminary
Microbiology:
07/30/2023 1152 Blood culture: Coag negative staph (performed at [facility])
- Staphylococcus epidermidis (1 of 2 bottle)
07/28/2023 1400 Blood culture: Coag negative staph (performed at [facility])
- Staphylococcus epidermidis (1 of 2 bottle)
Imaging:
08/02/2023 CXR (portable): No visualized pneumothorax. Opacification of both lower lung fajardo concerning for pneumonia. Obscuration of the left hemidiaphragm concerning for left lower lobe pneumonia. Mild patchy airspace disease.
07/28/2023 ECHO (TTE): Study is technically difficult and technically limited. Mild to moderately dilated left atrium. Large pleural effusion in the left lateral region. Aortic valve is focally thickened and trileaflet. Moderate to severe aortic
regurgitation. Moderate tricuspid regurgitation. Moderate pulmonic valve regurgitation. EF approximately 45%. The bioprosthetic mitral valve is appreciated in the appropriate position and appears well-seated. (Study performed at [facility])
[2023-08-05] MEDS: VANCOCIN 300 MG IV (09:27)
[2023-08-05] MEDS: VANCOCIN 300 ML IV (09:27)
--- NOTE | 2023-08-05 09:45 | W.PN.PUL3 ---
Today's Communication / Plan
-
Aggressive diuresis as tolerated
Replete K>4, Mg>2 while diuresing
Abx as per ID
Doubtful thoracentesis has any high utility given she is in acute heart failure and her pleural fluid would likely reaccumulate - continue diuresis as above
Up OOB as tolerated
Maintain SpO2 >90-94% with supplemental oxygen and wean as tolerated
PT/OT
Patient tolerated her KARL well. She is breathing comfortably on 2L/min at rest, but still has multiple factors contributing to her shortness of breath during exertion - deconditioning, obesity, and acute decompensated heart failure. Defer diuresis
to cardiology. No additional pulmonary recs at this time. Pulmonary service will now sign off. Please re-consult if there are any additional questions or concerns.
Assessment
-
Assessment: 67-year-old female with a past medical history of SSS s/p with recent replacement of right atrial lead given prior was nonfunctional, valvular heart disease with moderate�severe MR s/p bioprosthetic MVR, TV repair, persistent A-fib on
chronic sotalol and Pradaxa, chronic HFpEF, LIZBETH on CPAP, history of PE/DVT, chronic lymphedema and history of endometrial carcinoma who presents with SOB + weakness. Patient was recently hospitalized from 06/29 � 07/09/2023 due to mitral valve
replacement and was discharged to acute rehab facility. She was admitted to outside hospital ([facility]) and required ICU level of care due to hypoxia. She was treated for pneumonia and CHF exacerbation with antibiotics and IV Lasix.
Blood cultures were reportedly positive for S. epidermidis, and CT chest there showed no PE with bibasilar infiltrates versus atelectasis and bilateral pleural effusions. She also had an echo done on 07/27 that reportedly showed a large left-sided
pleural effusion with moderate to severe AI with an LVEF mildly reduced at 45-50%. There was concern for possible endocarditis and she was transferred here to for further treatment. She was admitted to the IVU under the hospitalist, with
cardiothoracic surgery, ID and cardiology consulted. The patient's device was interrogated today showing normal function with no abnormality seen. Patient has been in persistent A-fib starting on July 09, 2023. Cardiology is planning to perform
KARL to reevaluate her recently placed bioprosthetic mitral valve replacement as well as TV repair and evaluate severity of aortic insufficiency noted by ronn Abbasi. Pulmonary service now consulted for risk stratification for KARL.
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
and HARVINDER clip (06/30/2023), persistent A-fib on chronic sotalol and Pradaxa, chronic HFpEF, hypertension, hyperlipidemia, DM type II, history of NSVT, obesity, chronic venous insufficiency, chronic lymphedema, history of endometrial carcinoma, history
of PE/DVT, LIZBETH on CPAP, nonobstructive CAD, gout, morbid obesity, ambulatory dysfunction requiring walker
Impression:
#Acute respiratory failure with hypoxia due to acute decompensated heart failure/acute HFmrEF exacerbation; doubt bacterial PNA given absent leukocytosis and clinical Sx of PNA are lacking
#SANA
#Contraction alkalosis due to diuresis
#Staph bacteremia � coagulase-negative
#SSS s/p PPM with recent replacement of right atrial lead due to dysfunction
#Moderate�severe MR with recent bioprosthetic MVR, TV repair, biatrial MAZE and HARVINDER exclusion � OR date: 06/30/2023
#hx of DVT/PE
#LIZBETH on CPAP
#MRSA positive on screen via nares
#CAD
#Morbid obesity
#Chronic venous insufficiency/lymphedema
Plan:
- Patient went down for KARL on 08/02 but could not lay flat for procedure - pt has multifactorial reasons for this being in acute heart failure, obesity, deconditioning and hemorrhoidal pain
- Of note, her last KARL was on 06/30/2023 and she tolerated this with no complications
- Patient is high risk for a low�intermediate risk procedure given her acute CHF exacerbation with bacteremia and sepsis; use conscious sedation as opposed to general anesthesia with MAC
- She has developed a contraction alkalosis - her serum HCO3 level has improved from 37 on 08/02 and is now 31-33; her pH from 08/03 is 7.42 --> no need for diamox at this time; continue to monitor; if pH>7.45 with sHCO3 >35 then would tx with diamox
250mg x1
- Continue with diuresis as per cardiology --> patient is now net negative 5.3L since admission
- prn nebulized bronchodilators with atrovent and xopenex (given A-fib)
- Patient tolerated KARL today showing no evidence of endocarditis and no MR with mean gradient of 5mm across her MV.
- Unclear if thoracentesis is indicated given she is in acute heart failure and the pleural fluid would likely reaccumulate; continue with diuresis as aggressive as tolerated
- Continue CPAP with sleep
- Maintain SpO2 >90-94% with supplemental O2 as needed
- Abx as per ID
- Follow up infectious workup and follow up BCx collected at OSH ([facility])
- Incentive spirometer encouraged
- Replete electrolytes with K>4, Mg>2
- Maintain euglycemia with goal BG >100 and <180
- PT/OT; pain control
- DVT ppx
Patient tolerated her KARL well. She is breathing comfortably on 2L/min at rest, but still has multiple factors contributing to her shortness of breath during exertion - deconditioning, obesity, and acute decompensated heart failure. Defer diuresis
to cardiology. No additional pulmonary recs at this time. Pulmonary service will now sign off. Please re-consult if there are any additional questions or concerns. Thank you for allowing us to be involved in the care of this patient.
Total time spent today was 35 minutes for this encounter. Time includes reviewing laboratory test/imaging results, reviewing pertinent medical records, obtaining and reviewing medical history, performing an appropriate exam, ordering medications,
tests and procedures. Time also includes documentation of this encounter, coordinating patient care and communicating with other healthcare professionals. Total time does not include separately billed tests performed on this date of service.
Data:
CXR 08-02-2023:
Progressed findings suggesting bilateral lower lobe, right upper lobe and left perihilar pneumonia. Clinical and laboratory correlation recommended. CHF with layering pleural effusions cannot be completely excluded.
Mild cardiomegaly. Stable
KARL - 08-05-2023:
Normal left ventricular size and function. Left ventricular ejection fraction
is 50-55%.
s/p bio-MVR. Mean gradient 5 mmHg. No mitral regurgitation.
Trileaflet aortic valve. Moderate aortic regurgitation.
s/p TV repair. Mild tricuspid regurgitation.
Mild/moderate pulmonic regurgitation.
No evidence of endocarditis. No evidence of device lead vegetation.
Compared to TTE 07/03/23: AR has progressed from mild/moderate to moderate.
Other findings stable.
Subjective Data
-
Date of Service:
Date of Service: August 05, 2023
Chief Complaint: Pulmonary Follow Up
Subjective:
Pt seen and evaluated this AM. She underwent her KARL this AM and did well. She is currently on 2L/min and breathing comfortably. Denies chest pain, SOB at rest, abd pain, N/V/f/c.
Review of Systems
General: Other (negative unless mentioned above)
Objective Data
Data Reviewed
Vital Signs / I&O / Oxygen:
Vital Signs
Temp Pulse Resp BP Pulse Ox
97.5 F 88 16 133/58 98
08/05/23 12:25 08/05/23 12:45 08/05/23 12:25 08/05/23 12:24 08/05/23 12:25
Intake and Output
08/04/23 08/05/23 08/06/23
06:59 06:59 06:59
Intake Total 550 / 550 600 / 600
Output Total 2575 / 2575 1225 / 1225
Balance -2024 / -2024 -625 / -625
SaO2 98
Nasal Cannula flow liters per 2
minute
Physical Exam
General: Respiratory Distress (Negative), Comfortable and Chills (Negative)
HEENT: Normocephalic and Anicteric
Cardiovascular: Irregular Rhythm, Peripheral Edema (+1 lower extremity pitting edema) and Other (Normal heart rate)
Respiratory: Wheeze (Negative), Crackles (Bibasilar), Rhonchi (Negative), Non-Labored Respirations and Other (Diminished breath sounds in the bases)
GI: Soft, Distended (Abdominal obesity), Non Tender and Normal Bowel Sounds
Neurology: Awake, Alert and Tremors (Negative)
Skin: Warm, Dry, Jaundice (Negative) and Other (lower extremity with chronic venous stasis dermatitis)
Labs/Micro/Reports
Lab Data
08/05/23 05:13
08/05/23 05:47
Microbiology
08/02/23 01:17 Blood/Venous Blood Culture - Preliminary
Coagulase neg. staphylococcus
Additional testing on request
08/02/23 01:17 Blood/Venous Gram Stain - Preliminary
08/03/23 05:22 Blood/Venous Blood Culture - Preliminary
No Growth in 48 hours- Final report to follow
08/04/23 04:47 Blood/Venous Blood Culture - Preliminary
No Growth in 24 hours- Final report to follow
08/02/23 01:23 Blood/Venous Blood Culture - Preliminary
No Growth in 72 hours- Final report to follow
--- NOTE | 2023-08-05 10:04 | CM ---
cm following for dc planning needs- referral faxed to [facility] to continue her rehab. await bed avail
--- NOTE | 2023-08-05 10:55 | PTCARENOTE ---
Assumed care of pt from night RN. Pt received awake and alert, Ox3. VSS, CM shows AF 90's, POX 95% on RA. Pt remains NPO for KARL this am. Vancomycin hung as per APR, will draw Peak levels 2 hours after infusion in. Pt taken to CCL for KARL.
[2023-08-05 12:34] LABS: Glucose - Point of Care 147 mg/dl (70-99)
[2023-08-05] MEDS: NOVOLOG FLEXPEN-LOW RESISTANCE SC (12:48)
[2023-08-05 13:01] LABS: LDH 296 U/L (120-246)
--- NOTE | 2023-08-05 14:07 | PN.CDI ---
CDI
- -
CDI:
Physician Documentation Request
Admit Date: 08/01/23 22:56
Dear Doctor Emmanuel,
Please review the following and provide your response in the progress notes.
Due to conflicting documentation, please clarify the type of CHF....
Clinical Indicators:
Cardiology, PN, 08/02
#Heart failure with preserved ejection fraction acute on chronic
#...continue with Lasix for diuresis
PN, 08/02
#Acute on Chronic HFmrEF - Daily Weights I/O - check BNP
#...- Lasix IV 80mg BID - Cardiology eval appreciated
KARL, 08/04
#Normal left ventricular size and function.
#...Left ventricular ejection fraction is 50-55%.
Please clarify the type of CHF evaluated, treated and monitored.
Acute on chronic diastolic CHF
Acute on chronic systolic CHF
Other(please specify)
Type Acuity
Systolic Acute
Diastolic Chronic
Combined Systolic/Diastolic Acute on Chronic
Use of terms such as suspected, likely, concern for, or probable (associated with a specific diagnosis that is being evaluated, monitored, or treated as if it exists) are acceptable and can be coded in the inpatient setting, when documented at the
time of discharge.
Thank you,
Marilin Gutierrez RN BSN CCDS
CDI Specialist
please contact via tiger text
Please use your independent medical judgment in providing your response.
--- NOTE | 2023-08-05 14:16 | W.PN.CARDCBS ---
Addendum entered and electronically signed by Dioni Nuno MD 08/05/23 14:49:
I saw and examined the patient.
The SUPERVISOR [employer]ANT or PA's note was reviewed and I agree with the note.
Comment: General: Well developed, well nourished in NAD.
Neck: Supple, no JVD, HJR, carotids +2 B/L, no bruits bilaterally.
Heart: Non displaced PMI, RRR, no murmurs, No S3, S4, no rubs.
Lungs: Scattered rhonchi
Extremities: No clubbing, cyanosis or edema bilaterally.
Neuro: Grossly nonfocal, awake, alert and oriented x3.
She seems to be improving but remains on oxygen. Will continue IV Lasix. KARL without evidence of endocarditis and moderate AI. Continue medical therapy. Will consider increasing amiodarone dose. Consider outpatient cardioversion.
Original Note:
Today's Communication / Plan
-
continue IV lasix diuresis
KARL without endocarditis or lead infection, AI moderate
GDMT as able
repeat EKG in AM, consider increasing amiodarone if able
Impression / Plan
-
Primary Revenue Integrity Analyst: Dr. Hiren Peters of [facility]
Assessment:
Shortness of breath, weakness
Staph epidermidis bacteremia
Heart failure with preserved ejection fraction
Worsening of aortic valve insufficiency suspected, mod AI by KARL 08/04
Previous symptomatic mod to severe MR s/p bioprosthetic MVR, TV repair, MAZE, HARVINDER clip 06/30/23
SSS s/p Medtronic DC PPM 2017/revision 2023
-Abandoned right atrial lead, nonfunctional, status post right atrial lead revision and generator change 06/2023
Persistent afib (recurrent)
-Previously on chronic sotalol and pradaxa therapy
-Cardioversion 07/06/2023 to sinus rhythm on amiodarone
Bilateral DVT per hematology at [facility] appears to be failure of Pradaxa now on Lovenox
-History of DVT/PE in 2012
HTN
HLD
NIDDM
NSVT
Obesity
Chronic venous insufficiency/chronic lymphedema
Testing at [facility]:
CT chest was done (07/31/23) showing no PE, bibasilar infiltrates v atelectasis and bilateral pleural effusions.
Echo was done (07/28/23) showing large L pleural effusion and moderate - severe AR (previously moderate here on 07/02). LVEF was 45-50%.
TTE 04/27/2023 at [facility]: EF 55 to 60%, normal RV function, moderate to severe eccentric RI
KARL 04/29/23 at [facility]: Moderately severe dilated left atrium, moderately dilated right atrium, moderate to severe eccentric RI with moderate TI, EF felt to be mildly reduced visually
Echocardiogram July 03, 2023, EF 50%, status post mitral valve replacement with no MR and mean gradient of 4, mild to moderate aortic regurgitation, status post tricuspid valve repair with mild TR. PA pressure 35-40. No significant pericardial
effusion.
ECHO 07/03/23: EF 50%, status post chordal sparing mitral valve replacement, no MR seen, peak/mean gradients 12/4 mmHg, mild to moderate AR, TV repair with 28 mm band annuloplasty with mild TR, PAP 35 to 40 mmHg, mild to moderate MT, prominent
anterior fat pad with no significant pericardial effusion
KARL 08/05/23: EF 50 to 55%, status post bio MVR with mean gradient 5 mmHg, no MR, moderate AR, status post TV repair with mild TR, mild to moderate MT, no evidence of endocarditis, no evidence of device lead vegetation
Plan:
-She is complex. status post bioprosthetic MVR, TV repair, MAZE, HARVINDER clip 06/30/23. She presented with shortness of breath.
-There was concern from [facility] for worsening AI by TTE completed there. KARL 08/05/2023 with moderate AR, and stable MVR and TV repair without evidence of endocarditis or device lead vegetation, results reviewed with patient today
-Continue antibiotics per ID
-Continue IV Lasix diuresis. Wean supplemental oxygen as able. Cr stable at 1.1. unclear dry weight as lower than discharge weight post surgery 06/2023
-has been in afib since 07/09/23 by device interrogation. rate controlled on review of tele. she underwent MAZE at time of MVR/TV repair 06/29. on amiodarone 200mg daily. repeat EKG in AM and consider increasing amio dose if QTc improved. had been on
sotalol pre valve surgery which was stopped due to CHF.
-BPs stable on norvasc 7.5mg daily and coreg 3.125mg BID. will increase coreg dose to 6.25mg BID
-currently on OAC with lovenox for afib and DVT (was on pradaxa when developed clot). hgb downtrending, 9.0 on 08/04
-ideally would place on SGLT2 inhibitor, however not ideal candidate due to increased risk for mycotic infections due to body habitus and current ford catheter
-d/w nursing
Progress Note - Revenue Integrity Analyst
Subjective
Date of Service: August 05, 2023
Without current complaints
Objective
Labs:
08/05/23 05:13
08/05/23 05:47
Labs
Hgb 9.0 g/dL (12.0-16.0) L 08/05/23 05:13
Hct 28.7 % (37.0-47.0) L 08/05/23 05:13
Plt Count 177 10^3/uL (130-400) 08/05/23 05:13
Sodium 138 mmol/L (135-145) 08/05/23 05:13
Potassium 3.6 mmol/L (3.5-5.1) 08/05/23 05:13
BUN 28 mg/dl (7-17) H 08/05/23 05:13
Creatinine 1.1 mg/dL (0.6-1.0) H 08/05/23 05:13
Glucose Cancelled 08/05/23 05:47
Troponins
08/02/23
19:51
Troponin I 0.019
Vital Signs and I&O:
Vital Signs
Temp Pulse Resp BP Pulse Ox
97.5 F 89 16 133/58 98
08/05/23 12:25 08/05/23 13:00 08/05/23 12:25 08/05/23 12:24 08/05/23 12:25
Vital Signs
Temp Pulse Resp BP Pulse Ox
97.5 F 89 16 133/58 98
08/05/23 12:25 08/05/23 13:00 08/05/23 12:25 08/05/23 12:24 08/05/23 12:25
Intake & Output
08/03/23 08/04/23 08/05/23 08/06/23
07:59 07:59 07:59 07:59
Intake Total 1010 / 1010 550 / 550 600 / 600
Output Total 2750 / 2750 2575 / 2575 1225 / 1225
Balance -1740 / -1740 -2025 / -2025 -625 / -625
Physical Exam
Physical Exam
GEN: No distress, awake, alert, oriented x3. appears older than stated age. on supp O2
HEENT: supple, anicteric, mmm, eomi
LUNGS: CTA B/L, no wheezes/rales
CV: Irreg, S1/S2, 1/6 syst LSB
ABD: soft, BS+, NT/ND
EXT: No cyanosis, clubbing. trace edema of B/L LE with chronic skin discoloration
NEURO: Gross non-focal
SKIN: Warm, pink, dry. No rash. Sternotomy and L chest incisions healing well.
[2023-08-05] MEDS: FEOSOL 325 MG PO (14:41)
[2023-08-05] MEDS: METAMUCIL, KONSYL 1 PACKET PO (14:42)
[2023-08-05] MEDS: KLOR-CON 20 MEQ PO ×2 (14:42→20:25)
[2023-08-05] MEDS: MIRALAX 17 GRAMS PO (14:42)
[2023-08-05 17:58] LABS: Body Fluid pH 7.54
[2023-08-05 18:10] LABS: Glucose - Point of Care 181 mg/dl (70-99)
[2023-08-05 18:19] LABS: Body Fluid Glucose 163 mg/dl; Body Fluid LDH 160 U/L; Body Fluid Mononuclear 85.1 %; Body Fluid Polymorphonuclear 14.9 %; Body Fluid Protein 2.9 g/dl; Body Fluid WBC 746 /CUMM
[2023-08-05 18:23] LABS: Body Fluid Second Tech EYM
--- NOTE | 2023-08-05 18:35 | W.PN.CT ---
Today's Communication / Plan
-
KARL today
Continue aggressive diureses
Continue IV antibiotics
Assessment / Plan
-
Shortness of breath, weakness
Staph epidermidis bacteremia
Heart failure with preserved ejection fraction
Worsening of aortic valve insufficiency suspected, mod AI by KARL 08/04
Previous symptomatic mod to severe MR s/p bioprosthetic MVR, TV repair, MAZE, HARVINDER clip 06/30/23
SSS s/p Medtronic DC PPM 2017/revision 2023
-Abandoned right atrial lead, nonfunctional, status post right atrial lead revision and generator change 06/2023
Persistent afib (recurrent)
-Previously on chronic sotalol and pradaxa therapy
-Cardioversion 07/06/2023 to sinus rhythm on amiodarone
Bilateral DVT per hematology at [facility] appears to be failure of Pradaxa now on Lovenox
-History of DVT/PE in 2012
HTN
HLD
NIDDM
NSVT
Obesity
Chronic venous insufficiency/chronic lymphedema
Subjective
-
Date of Service: August 05, 2023
Objective Data
-
Lab Results
08/05/23 05:13
08/05/23 05:47
Vital Signs
Vital Signs
Temp Pulse Resp BP Pulse Ox
97.6 F 91 19 139/92 100
08/05/23 16:46 08/05/23 17:45 08/05/23 17:45 08/05/23 17:45 08/05/23 17:36
CT Intake/Output/Weight
08/04/23 08/05/23 08/05/23
18:59 06:59 18:59
Intake Total 360 / 600 240 / 600
Output Total 550 / 1225 675 / 1225
Balance -190 / -625 -435 / -625
SaO2: 100
[2023-08-05 22:07] LABS: Glucose - Point of Care 151 mg/dl (70-99)
--- NOTE | 2023-08-05 23:08 | PTCARENOTE ---
Pt received start of shift, HR afib. Pt OOB in chair, assisted back to bed w/ rolling walker. Once back in bed blood noted on gown. On further inspection, blood + clot noted under R pannus and in R groin. Scant blood noted in L groin. Blood cleaned
off pt - no obvious source of bleed, no active bleeding, no open wounds. Pt denies any SOB, CP, or lightheadedness/dizziness. Informed to notify RN if any changes, call javier within reach.
[2023-08-06] VITALS (13 sets, daily range): BP systolic 83–168; BP diastolic 54–130; PULSE 88; BMI 44.3
[2023-08-06] MEDS: TYLENOL 650 MG PO (02:40)
[2023-08-06 03:09] LABS: % Basophils 0.6 % (0-2); % Eosinophils 3.4 % (0-6); % Immature Granulocytes 0.6 % (0-0.5); % Lymphocytes 17.1 % (20.5-51.1); % Neutrophils 65.3 % (42.2-75.2); Absolute Eosinophils 0.2 10^3/uL (0-0.7); Absolute Lymphocytes 1.1 10^3/uL (1.2-3.4); Absolute Monocytes 0.8 10^3/uL (0.1-0.6); Absolute Neutrophils 4.2 10^3/uL (1.4-6.5); Hematocrit 28.6 % (37.0-47.0); Hemoglobin 9.6 g/dL (12.0-16.0); Mean Corp Hgb Conc. 33.6 g/dL (33.0-37.0); Mean Corpuscular Hgb 30.7 pg (27.0-31.0); Mean Corpuscular Volume 91.4 fL (81.0-99.0); Mean Platelet Volume 9.3 fL (7.4-10.4); Nucleated Red Blood Cells % 0 %; Platelet Count 190 10^3/uL (130-400); Red Blood Cell Count 3.13 10^6/uL (4.20-5.40); Red Cell Dist. Width 15.7 % (11.5-14.5); White Blood Cell Count 6.4 10^3/uL (4.8-10.8)
--- NOTE | 2023-08-06 03:55 | PTCARENOTE ---
Pt c/o 4/10 POST in front of head, requesting specifically tylenol. PREPARATION SUPERVISOR [employer]ZING Darrell contacted, one time dose tylenol 650mg ordered and administered.
[2023-08-06 04:12] LABS: Blood Urea Nitrogen 23 mg/dl (7-17); Calcium 8.9 mg/dl (8.4-10.2); Carbon Dioxide 32 mmol/L (22-30); Chloride 98 mmol/L (98-107); Estimated Creatinine Clearance 57 ml/min; Glucose 109 mg/dl (70-99); Magnesium 2.4 mg/dl (1.6-2.3); Sodium 137 mmol/L (135-145); eGFR > 60.00
[2023-08-06 04:16] LABS: Vancomycin Random 19.7 ug/ml
--- NOTE | 2023-08-06 06:34 | W.PN.UPDATE ---
Update Note
Progress Note Update
patient s/p MVR 06/[address] Claros, now readmitted with CHF exacerbation. Pleural effusions & S.epi bacteremia noted
KARL performed 08/04 - no evidence of endocarditis noted. +Mod AI
Plan:
Continue aggressive diureses
Continue IV antibiotics
cardiology following, rec. potential CV as an outpatient
appreciate all input
[2023-08-06] MEDS: COREG 6.25 MG PO ×2 (07:59→20:41)
[2023-08-06] MEDS: FEOSOL 325 MG PO (07:59)
[2023-08-06] MEDS: PROTONIX 40 MG PO (07:59)
[2023-08-06] MEDS: PACERONE 200 MG PO ×2 (07:59→16:10)
[2023-08-06] MEDS: LASIX 80 MG IV ×2 (08:00→16:10)
[2023-08-06] MEDS: RESTASIS 0.05% OPHTHALMIC EMULSION 1 DROPS OPHTH ×2 (08:01→20:40)
[2023-08-06] MEDS: LOVENOX 110 MG SC ×2 (08:01→20:39)
[2023-08-06] MEDS: LOW STRENGTH ASPIRIN 81 MG PO (08:01)
[2023-08-06] MEDS: METAMUCIL, KONSYL 1 PACKET PO (08:02)
[2023-08-06] MEDS: KLOR-CON 20 MEQ PO ×2 (08:02→20:40)
[2023-08-06] MEDS: MIRALAX 17 GRAMS PO (08:03)
--- NOTE | 2023-08-06 08:09 | W.PN.HOSP.TC ---
Addendum entered and electronically signed by Marilin Benitez MD 08/06/23 18:55:
Patient seen and examined independently--agree with plan set forth by Dr. Arredondo
GENERAL: well developed, well nourished, female in no apparent distress
HEENT: NC/AT--off O2, on room air
HEART: irreg irreg--no murmur noted
LUNGS : clear to auscultation bilaterally--better breath sounds at bases bilaterally
ABDOM: soft, nontender, nondistended, + bowel sounds--bruises on abdomen from lovenox shots
EXT: no cyanosis, clubbing, or edema
NEUROLOGIC: grossly intact
: ford
Acute Hypoxemic Respiratory Insufficiency--likely due to CHF exac from presumed endocarditis (subsequently ruled out)--KARL 08/04 without evidence of vegetations--now on room air--s/p bilateral thoracentesis (right 500mls, left 400mls), transudative
fluid- apprec IR for thoracentesis--blood culture positive for coag neg staph, otherwise neg-- will continue with antibiotics as per ID, waiting for final identification of bacteria--Procalcitonin noted to be < 0.5 on labs at [facility], CPAP therapy,
etc--apprec pulm/cards input--diurese as able
Acute on Chronic diastolic (preserved EF) - Daily Weights I/O Lasix IV 80mg BID - Cardiology eval appreciated--apprec IR consult for thoracentesis
Staph Bacteremia-- Endocarditis ruled out- Follow BCx results until clear-- CXR appreciated possible PNA vs CHF w/ layering pleural effusion (less likely PNA as per ID) - ID eval appreciated cont empiric Vanc, discontinued empiric zosyn low
suspicion PNA- Echo done at [facility] showed progressed AR. From mild (06/29) to mild - moderate (07/02) to moderate - severe (07/27) - Cardiology Cardiothoracic Surgery consults appreciated
Persistent Atrial Fibrillation with QT prolongation - s/p MAZE and HARVINDER exclusion on 06/29 - Continue amiodarone, carvedilol- QTc prolonged 505, minimize/avoid use of QT prolonging agents as possible.
Essential Hypertension- Relatively well controlled at this time - cont amlodipine, lasix, coreg with holding parameters
DM-II - Stable. Hold oral agents for now - SSI coverage as needed.
Bilateral LE DVT/History of DVT / PE - Patient noted on US to have bilateral femoral DVTs at [facility] (07/27) - Changed from Pradaxa to Lovenox per Hematology recommendations - Cont Lovenox 110mg BID- Change to IV heparin for bridging if any intervention
/ surgery is planned.
Anemia--likely chronic disease--consider checking iron studies, B12, folate- nursing reports blood found in patient's groin, between legs--ford cath site without bleeding, rectal without bleeding--? vaginal, monitor for now--repeat H&H appears
stable
LIZBETH on CPAP continued
Morbid Obesity due to excess calories - Affects all aspects of care - Encourage healthy diet and increased activity when able with goal of weight reduction.
Ford - Patient arrives at with Ford catheter in place. This was placed at [facility], presumably for I/O determination vs urinary retention - Maintain Ford for now - Eventual trial of void prior to discharge
PT/OT appreciated SNF rehab likely
DVT Prophylaxis: Therapeutic Lovenox
Code Status: Full
d/c planning--waiting for ID finalization of abx
Original Note:
Today's Communication/Plan
-
Follow H&H
Monitor I's and O's with daily weights
S/p bilateral thoracentesis with improvement of respiratory status
Pain control
Amiodarone increased by cardiology.
Assessment / Plan
Assessment / Plan
A/P: Patient is a 67y F with PMH significant for A-Fib, Obesity, HTN, HLD, DM-II, HFmrEF, valvular heart dz, cardiothoracic surgery, DVT/PE, Endometrial Ca s/p resection/XRT, transferred from [facility] to for evaluation of CHF and possible
endocarditis.
Acute Hypoxemic Respiratory Insufficiency
- Likely due to acute decompensated HF/HFmrEF vs pneumonia.
-Previously suspected to have endocarditis
- Patient tolerated KARL with additional TTE today, no evidence of endocarditis or mitral regurgitation but mild tricuspid regurgitation and mild/moderate pulmonic regurgitation.
- CXR 08/04/23 with b/l Pleural effusion.
- S/p right thoracentesis 08/05/2023 with removal of 500 cc serosanguineous pleural fluid, subsequent CXR negative for pneumothorax.
- S/p left thoracentesis 08/06/2023 with removal of 400 cc serosanguineous pleural fluid, subsequent CXR negative for pneumothorax.
- Improved, currently on room air SaO2 93%
- Procalcitonin noted to be < 0.5 on labs at [facility].
- Continue supportive care with O2, PAP therapy, etc
- Wean O2 supplementation as tolerated
- Cardiology / Cardiothoracic Surgery consults appreciated
- PT/OT
- Pain control.
Constipation
-Milk and molasses
Acute on Chronic HFmrEF
- Daily Weights I/O, weight is up.
- Continue Lasix IV 80mg BID
- Coreg increased from 3.125-6.25
- Sternal precautions lifted, up and walking around as tolerated.
- Cardiology eval appreciated
Staph Bacteremia
- Coagulase-negative staph bacteremia
- Follow BCx results, Positive preliminary Cxs.
-Continue empiric vancomycin while waiting for blood cultures per ID. Empiric Zosyn discontinued previously for low suspicion of pneumonia.
- CXR appreciated possible PNA vs CHF w/ layering pleural effusion (less likely PNA as per ID)
-ID recs appreciated
- Echo done at [facility] showed progressed AR. From mild (06/29) to mild - moderate (07/02) to moderate - severe (07/27).
Persistent Atrial Fibrillation
- s/p MAZE and HARVINDER exclusion on 06/29.
- Monitor on tele.
-Amiodarone increased by cardiology due to persistent A-fib
- Outpatient cardioversion planned
- Continue labetalol
- Continue amiodarone, carvedilol.
- QTc prolonged 505, minimize/avoid use of QT prolonging agents as possible.
Benign Hypertension
- Relatively well controlled at this time
- cont amlodipine lasix coreg with holding parameters
DM-II
- Stable. Hold oral agents for now.
- SSI coverage as needed.
Bilateral LE DVT
History of DVT / PE
- Patient noted on US to have bilateral femoral DVTs at [facility] (07/27).
- Changed from Pradaxa to Lovenox per Hematology recommendations.
- Cont Lovenox 110mg BID
- Change to IV heparin for bridging if any intervention / surgery is planned.
Anemia
- no obvious signs of bleeding
-Hb 9.6. Follow H&H
-Iron TIBC B12 Folate all WNL
LIZBETH on CPAP continued
Morbid Obesity due to excess calories
- Affects all aspects of care.
- Encourage healthy diet and increased activity when able with goal of weight reduction.
Ford
- Patient arrives at with Ford catheter in place. This was placed at [facility], presumably for I/O determination.
- Maintain Ford for now.
- Eventual trial of void prior to discharge
PT/OT appreciated SNF rehab
DVT Prophylaxis: Therapeutic Lovenox
Code Status: Full
Anticipated Discharge: 24 - 48 hours
Subjective/Interval History
-
Date of Service: August 06, 2023
Objective Data
-
Labs:
Laboratory Results
08/06/23
03:02
WBC 6.4
Hgb 9.6 L
Hct 28.6 L
Plt Count 190
Sodium 137
Potassium 4.0
Chloride 98
Carbon Dioxide 32 H
BUN 23 H
Creatinine 1.0
Glucose 109 H
Calcium 8.9
Vital Signs:
Vital Signs
Temp Pulse Resp BP Pulse Ox
98.7 F 88 20 131/63 94
08/06/23 07:05 08/06/23 07:59 08/06/23 07:05 08/06/23 07:59 08/06/23 07:05
I&O
08/05/23 08/06/23 08/07/23
06:59 06:59 06:59
Intake Total 600 / 600 240 / 240
Output Total 1225 / 1225 880 / 880
Balance -625 / -625 -640 / -640
Review of Systems
-
History Source: Patient
All other systems: Not reviewed unless documented
Constitutional: Reports No Symptoms; Denies Fever
EENT: Reports No Symptoms Reported
Respiratory: Reports Other (Hypoxic on ambulation)
Cardiac: Reports No Symptoms; Denies Chest Pain or Palpitations
Abdomen/GI: Reports No Symptoms; Denies Abdominal Pain or Nausea
Endocrine: Reports No Symptoms
Physical Exam
-
General: Well Nourished, No Apparent Distress and Comfortable
HEENT: Moist Mucous Membranes
Respiratory: Clear to Auscultation and Non Labored Respirations; Negative Wheezes, Rales or Rhonchi
Cardiac: Regular Rhythm
GI: Soft, Nontender, Nondistended and Normal Bowel Sounds
Musculoskeletal: No Clubbing
Skin: Warm
Neuro: Awake, Alert and AO x 3
Psych: Calm
Data Reviewed
-
Diagnostic Radiology: Image personally visualized and interpreted, Report Reviewed by me and Discussed with Physician
Labs: Labs Reviewed by me and Discussed with Physician
Old Records: Reviewed
[2023-08-06] MEDS: PREPARATION H OINTMENT 1 APPLIC RECTAL (08:15)
[2023-08-06 08:46] LABS: Glucose - Point of Care 126 mg/dl (70-99)
[2023-08-06] MEDS: NOVOLOG FLEXPEN-LOW RESISTANCE SC ×2 (08:52→15:46)
--- NOTE | 2023-08-06 09:54 | W.PN.CARDCBS ---
Addendum entered and electronically signed by Gracie Vigil DO 08/06/23 16:36:
I saw and examined the patient.
The Snuff Blender's note was reviewed and I agree with the note.
Comment: Patient seen and examined sitting out of bed to chair. States improved shortness of breath and edema. No palpitations. Reviewed anticoagulation with Lovenox as recommended by hematology at [facility]. Patient has not had
outpatient hematology follow-up and states that she is not willing to self inject Lovenox at home; previously on Pradaxa
GEN: No distress, awake, alert, oriented x3. appears older than stated age. obese
HEENT: mmm
LUNGS: Bronchovesicular breath sounds decreased at bases but clear
CV: Irreg, S1/S2, 02/21 syst LSB + PPM
ABD: soft, BS+, NT/ND
EXT: . trace edema of B/L LE with chronic skin discoloration
Skin: Sternotomy and L chest incisions healing well.
Plan:
-She is status post bioprosthetic MVR, TV repair, MAZE, HARVINDER clip 06/30/23.
-There was concern from [facility] for worsening AI by TTE. KARL 08/05/2023 with moderate AR, and stable MVR and TV repair without evidence of endocarditis or device lead vegetation, results reviewed with patient 08/04
-Coag negative staph bacteremia in the context of recent valve replacement. Continue antibiotics per ID
-s/p R thoracentesis for 500cc serosanguineous fluid. She has been weaned off supp O2.
-Continue IV Lasix diuresis, consider transition to po in next 24-48 hours.
-Cr stable at 1.0. unclear dry weight as lower than discharge weight post surgery 06/2023
- afib since 07/09/23 by device interrogation.
-rate controlled on review of tele overnight.
-she underwent MAZE at time of MVR/TV repair 06/29.
-Increase amio dose to 200mg BID in attempt to restore SR/load pre-consideration for outpatient CV once anticoagulation plan has been determined by hematology.
-currently on OAC with lovenox for afib and DVT (was on pradaxa when DVTs found 07/28/23 at [facility]). hgb 9.6 on 08/05.
-BPs stable on norvasc 7.5mg daily and coreg 6.25mg BID.
-ideally would place on SGLT2 inhibitor, however does not appear to be ideal candidate due to increased risk for mycotic infections due to body habitus and current ford catheter
-d/w nursing
Original Note:
Today's Communication / Plan
-
continue IV lasix diuresis
consider increasing amiodarone dose
need to establish [facility]cc OAC plan prior to considering for CV
PT/OT
Impression / Plan
-
Primary Toll Bridge Attendant: Dr. Hiren Peters of [facility]
Assessment:
Shortness of breath, weakness
Staph epidermidis bacteremia
Heart failure with preserved ejection fraction
Worsening of aortic valve insufficiency suspected, mod AI by KARL 08/04
Previous symptomatic mod to severe MR s/p bioprosthetic MVR, TV repair, MAZE, HARVINDER clip 06/30/23
SSS s/p [employer] DC PPM 2017/revision 2023
-Abandoned right atrial lead, nonfunctional, status post right atrial lead revision and generator change 06/2023
Persistent afib (recurrent)
-Previously on chronic sotalol and pradaxa therapy
-Cardioversion 07/06/2023 to sinus rhythm on amiodarone
Bilateral DVT per hematology at [facility] appears to be failure of Pradaxa now on Lovenox
-History of DVT/PE in 2012
HTN
HLD
NIDDM
NSVT
Obesity
Chronic venous insufficiency/chronic lymphedema
Testing at [facility]:
CT chest was done (07/31/23) showing no PE, bibasilar infiltrates v atelectasis and bilateral pleural effusions.
Echo was done (07/28/23) showing large L pleural effusion and moderate - severe AR (previously moderate here on 07/02). LVEF was 45-50%.
TTE 04/27/2023 at [facility]: EF 55 to 60%, normal RV function, moderate to severe eccentric KY
KARL 04/29/23 at [facility]: Moderately severe dilated left atrium, moderately dilated right atrium, moderate to severe eccentric [place] with moderate TI, EF felt to be mildly reduced visually
Echocardiogram July 03, 2023, EF 50%, status post mitral valve replacement with no MR and mean gradient of 4, mild to moderate aortic regurgitation, status post tricuspid valve repair with mild TR. PA pressure 35-40. No significant pericardial
effusion.
ECHO 07/03/23: EF 50%, status post chordal sparing mitral valve replacement, no MR seen, peak/mean gradients 12/4 mmHg, mild to moderate AR, TV repair with 28 mm band annuloplasty with mild TR, PAP 35 to 40 mmHg, mild to moderate NH, prominent
anterior fat pad with no significant pericardial effusion
KARL 08/05/23: EF 50 to 55%, status post bio MVR with mean gradient 5 mmHg, no MR, moderate AR, status post TV repair with mild TR, mild to moderate NH, no evidence of endocarditis, no evidence of device lead vegetation
Plan:
-She is status post bioprosthetic MVR, TV repair, MAZE, HARVINDER clip 06/30/23. She presented with shortness of breath.
-There was concern from [facility] for worsening AI by TTE completed there. KARL 08/05/2023 with moderate AR, and stable MVR and TV repair without evidence of endocarditis or device lead vegetation, results reviewed with patient 08/04
-Continue antibiotics per ID
-s/p R thoracentesis for 500cc serosanguineous fluid. She has been weaned off supp O2. Continue IV Lasix diuresis, consider transition to po in next 24-48 hours. Cr stable at 1.0. unclear dry weight as lower than discharge weight post surgery 06/2023
-has been in afib since 07/09/23 by device interrogation. rate controlled on review of tele overnight. she underwent MAZE at time of MVR/TV repair 06/29. on amiodarone 200mg daily. QTc improved, 478ms. consider increasing amio dose to 200mg BID in
attempt to restore SR/load pre-consideration for CV. had been on sotalol pre valve surgery which was stopped due to CHF.
-currently on OAC with lovenox for afib and DVT (was on pradaxa when DVTs found 07/28/23 at [facility]). hgb 9.6 on 08/05. will need to establish with hematology if lovenox is to be patient's buttermaker continuous churn OAC prior to considering CV
-BPs stable on norvasc 7.5mg daily and coreg 6.25mg BID.
-ideally would place on SGLT2 inhibitor, however does not appear to be ideal candidate due to increased risk for mycotic infections due to body habitus and current ford catheter
-d/w nursing
Progress Note - Toll Bridge Attendant
Subjective
Date of Service: August 06, 2023
reports no SOB
Objective
Labs:
08/06/23 03:02
08/06/23 03:02
Labs
Hgb 9.6 g/dL (12.0-16.0) L 08/06/23 03:02
Hct 28.6 % (37.0-47.0) L 08/06/23 03:02
Plt Count 190 10^3/uL (130-400) 08/06/23 03:02
Sodium 137 mmol/L (135-145) 08/06/23 03:02
Potassium 4.0 mmol/L (3.5-5.1) 08/06/23 03:02
BUN 23 mg/dl (7-17) H 08/06/23 03:02
Creatinine 1.0 mg/dL (0.6-1.0) 08/06/23 03:02
Glucose 109 mg/dl (70-99) H 08/06/23 03:02
Vital Signs and I&O:
Vital Signs
Temp Pulse Resp BP Pulse Ox
98.7 F 88 20 131/63 94
08/06/23 07:05 08/06/23 07:59 08/06/23 07:05 08/06/23 07:59 08/06/23 08:47
Vital Signs
Temp Pulse Resp BP Pulse Ox
98.7 F 88 20 131/63 94
08/06/23 07:05 08/06/23 07:59 08/06/23 07:05 08/06/23 07:59 08/06/23 08:47
Intake & Output
08/04/23 08/05/23 08/06/23 08/07/23
07:59 07:59 07:59 07:59
Intake Total 550 / 550 600 / 600 240 / 240
Output Total 2575 / 2575 1225 / 1225 880 / 880
Balance -2025 / -2025 -625 / -625 -640 / -640
Physical Exam
Physical Exam
GEN: No distress, awake, alert, oriented x3. appears older than stated age. obese
HEENT: supple, anicteric, mmm, eomi
LUNGS: few crackles RLB
CV: Irreg, S1/S2, 1/6 syst LSB
ABD: soft, BS+, NT/ND
EXT: No cyanosis, clubbing. trace edema of B/L LE with chronic skin discoloration
NEURO: Gross non-focal
SKIN: Warm, pink, dry. No rash. Sternotomy and L chest incisions healing well.
[2023-08-06] MEDS: NORVASC 7.5 MG PO (09:59)
--- NOTE | 2023-08-06 10:59 | PHA.VAN.FU ---
Vancomycin Assessment / Plan
- Assessment
Renal Function: Stable
WBC's are: WNL
In the past 24 hrs, patient has been: Afebrile
- Assessment - Therapeutic Drug Monitoring
Random Level: 19.7 - drawn ~17.5H after previous dose of 1500mg
- Dosing Plan
Dosing by Level: Hold off on dosing today
- Monitoring Plan
Random Level: 08/06 0600 - to monitor half-life trend
- Follow Up
Pharmacy will continue to follow.
Vancomycin Follow UP
- -
Patient Age: 67
Patient Sex: Female
Vancomycin Day #: 5
Indication: Bacteremia
Requesting Provider: Dr. Lopez / [facility]
Pertinent Antimicrobial Allergies:
oxytetracycline - hives
Height / Weight:
Height 5 ft
Actual Weight 103 kg
IBW in k.5
Adjusted BW in k.2
Pertinent Past Medical History: BMI ~45, DM
- Vital Signs / Lab Results
Temp Pulse Resp BP Pulse Ox
98.7 F 90 20 115/60 94
08/06/23 07:05 08/06/23 09:59 08/06/23 07:05 08/06/23 09:59 08/06/23 08:47
Lab Results - Hematology
08/04/23 08/05/23 08/06/23
04:47 05:13 03:02
WBC 6.9 6.6 6.4
Lab Results - Chemistry
08/04/23 08/05/23 08/06/23
04:47 05:13 03:02
BUN 23 H 28 H 23 H
Creatinine 1.2 H 1.1 H 1.0
Estimated Creat Clear 47 52 57
Microbiology Results
08/03/23 05:22 Blood Culture - Preliminary
Blood/Venous No Growth in 72 hours- Final report to follow
08/05/23 05:13 Blood Culture - Preliminary
Blood/Venous No Growth in 24 hours- Final report to follow
08/04/23 04:47 Blood Culture - Preliminary
Blood/Venous No Growth in 48 hours- Final report to follow
08/02/23 01:23 Blood Culture - Preliminary
Blood/Venous No Growth in 4 days- Final report to follow
08/05/23 17:32 Gram Stain - Preliminary
Pleural Fluid
08/02/23 01:17 Blood Culture - Preliminary
Blood/Venous Coagulase neg. staphylococcus
Additional testing on request
Gram Stain - Preliminary
Therapeutic Drug Monitoring
Vancomycin Peak Cancelled 08/05/23 13:00
Random Vancomycin 19.7 ug/ml 08/06/23 03:02
[2023-08-06 12:01] LABS: Glucose - Point of Care 224 mg/dl (70-99)
--- NOTE | 2023-08-06 12:09 | W.PN.ID1 ---
Date of Service
Date of Service: August 06, 2023
Today's Communication
Continue antibiotics. Await further workup from microbiology.
Assessment / Plan
Coag negative staph bacteremia in the context of recent valve replacement
Progressive shortness of breath
- improved
Suspected exacerbation of CHF
HTN
A-fib
DM
Obesity
CHF
Hx DVT
Hx endometrial CA (s/p SX and XRT)
Recommendations:
Continue vancomycin for the present while further blood cultures are pending.
Single blood culture bottle from 08/01 revealing growth of coag negative staph. Microbiology to provide full identification and susceptibility data.
KARL unrevealing.
Monitor white count and temperature curve.
����������������������������������������������������������
Chief Complaint
-: Bacteremia
Subjective / Review of Systems
Patient seen and examined. No specific complaints today. No fevers or chills. Doing well off supplemental O2.
Vital Signs / Physical Exam
Vital Signs
Vital Signs
Temp Pulse Resp BP Pulse Ox
98.5 F 87 20 142/65 93
08/06/23 11:57 08/06/23 11:57 08/06/23 11:57 08/06/23 11:57 08/06/23 11:57
Physical Exam
Constitutional: No Acute Distress, Comfortable, Chronically Ill and Non-toxic
Eyes: No Conjunctival Hemorrhage and Sclera Anicteric
Cardiovascular: Regular Rate and S1/S2; Negative S3/S4
Pulmonary: Clear and Non Labored; Negative Wheezes or Rales
Gastrointestinal: Soft, Non Distended, No Rebound and No Guarding
Extremities: Edema and Venous Insufficiency (severe; B/L LE's)
Skin: Warm and Dry; Negative Rash or Jaundice
Neurological: Awake and Alert
Psychological: Calm
Objective Data
Lab Data
Lab Results
08/06/23 03:02
08/06/23 03:02
Estimated Creat Clear 57 ml/min 08/06/23 03:02
Total Bilirubin 0.7 mg/dl (0.2-1.3) 08/02/23 05:50
AST 20 U/L (14-36) 08/02/23 05:50
ALT 12 U/L (0-35) 08/02/23 05:50
Alkaline Phosphatase 68 U/L (38-126) 08/02/23 05:50
Most recent labs reviewed.
Micro Results:
08/02/23 01:17 Blood Culture - Preliminary
Blood/Venous Coagulase neg. staphylococcus
Additional testing PENDING
Gram Stain - Preliminary
08/03/23 05:22 Blood Culture - Preliminary
Blood/Venous No Growth in 72 hours- Final report to follow
08/05/23 05:13 Blood Culture - Preliminary
Blood/Venous No Growth in 24 hours- Final report to follow
08/04/23 04:47 Blood Culture - Preliminary
Blood/Venous No Growth in 48 hours- Final report to follow
08/02/23 01:23 Blood Culture - Preliminary
Blood/Venous No Growth in 4 days- Final report to follow
08/05/23 17:32 Body Fluid Culture - Pending
Pleural Fluid Gram Stain - Preliminary
Microbiology:
07/30/2023 1152 Blood culture: Coag negative staph (performed at [facility])
- Staphylococcus epidermidis (1 of 2 bottle)
07/28/2023 1400 Blood culture: Coag negative staph (performed at [facility])
- Staphylococcus epidermidis (1 of 2 bottle)
Imaging:
08/02/2023 CXR (portable): No visualized pneumothorax. Opacification of both lower lung fajardo concerning for pneumonia. Obscuration of the left hemidiaphragm concerning for left lower lobe pneumonia. Mild patchy airspace disease.
07/28/2023 ECHO (TTE): Study is technically difficult and technically limited. Mild to moderately dilated left atrium. Large pleural effusion in the left lateral region. Aortic valve is focally thickened and trileaflet. Moderate to severe aortic
regurgitation. Moderate tricuspid regurgitation. Moderate pulmonic valve regurgitation. EF approximately 45%. The bioprosthetic mitral valve is appreciated in the appropriate position and appears well-seated. (Study performed at [facility])
Care Review
Plan reviewed with: Physician (CT Surgery)
[2023-08-06 15:04] LABS: Glucose - Point of Care 129 mg/dl (70-99)
--- NOTE | 2023-08-06 17:09 | PTCARENOTE ---
Pt given milk of molasses enema - had huge greenish/brown BM. Blood noted oozing from hemorrhoids. Pt tolerated well - feels relief.
[2023-08-06] MEDS: NOVOLOG FLEXPEN-LOW RESISTANCE 1 UNITS SC (17:45)
[2023-08-06 17:46] LABS: Glucose - Point of Care 161 mg/dl (70-99)
[2023-08-06 22:12] LABS: Glucose - Point of Care 199 mg/dl (70-99)
[2023-08-07] VITALS (7 sets, daily range): BP systolic 114–143; BP diastolic 57–68; BMI 43.5
[2023-08-07 03:38] LABS: Hematocrit 29.6 % (37.0-47.0); Hemoglobin 9.7 g/dL (12.0-16.0); Mean Corp Hgb Conc. 32.8 g/dL (33.0-37.0); Mean Corpuscular Hgb 30.8 pg (27.0-31.0); Mean Platelet Volume 9.3 fL (7.4-10.4); Platelet Count 175 10^3/uL (130-400); Red Blood Cell Count 3.15 10^6/uL (4.20-5.40); Red Cell Dist. Width 16.1 % (11.5-14.5); White Blood Cell Count 4.5 10^3/uL (4.8-10.8)
[2023-08-07 04:12] LABS: Vancomycin Random 13.8 ug/ml
[2023-08-07 04:19] LABS: Blood Urea Nitrogen 23 mg/dl (7-17); Carbon Dioxide 33 mmol/L (22-30); Chloride 98 mmol/L (98-107); Estimated Creatinine Clearance 47 ml/min; Glucose 127 mg/dl (70-99); Magnesium 2.4 mg/dl (1.6-2.3); Phosphorus 4.3 mg/dl (2.5-4.5); Potassium 3.5 mmol/L (3.5-5.1); Sodium 140 mmol/L (135-145)
[2023-08-07] MEDS: TYLENOL 650 MG PO ×3 (05:22→22:33)
[2023-08-07 07:11] LABS: Glucose - Point of Care 129 mg/dl (70-99)
--- NOTE | 2023-08-07 08:01 | W.PN.HOSP.TC ---
Addendum entered and electronically signed by Marilin Benitez MD 08/07/23 19:59:
Patient seen and examined independently--agree with plan set forth by Dr. Arredondo
GENERAL: well developed, well nourished, female in no apparent distress
HEENT: NC/AT--off O2, on room air
HEART: irreg irreg--no murmur noted
LUNGS : clear to auscultation bilaterally--better breath sounds at bases bilaterally
ABDOM: soft, nontender, nondistended, + bowel sounds--bruises on abdomen from lovenox shots
EXT: no cyanosis, clubbing, or edema
NEUROLOGIC: grossly intact
: ford
Acute Hypoxemic Respiratory Insufficiency--likely due to CHF exac from presumed endocarditis (subsequently ruled out)--KARL 08/04 without evidence of vegetations--now on room air--s/p bilateral thoracentesis (right 500mls, left 400mls), transudative
fluid- apprec IR for thoracentesis--blood culture positive for coag neg staph, otherwise neg-- will continue with antibiotics as per ID, waiting for final identification of bacteria--Procalcitonin noted to be < 0.5 on labs at [facility], CPAP therapy,
etc--apprec pulm/cards input--diurese as able
Acute on Chronic diastolic (preserved EF) - Daily Weights I/O Lasix transitioned to oral - Cardiology eval appreciated--apprec IR consult for thoracentesis
Staph Bacteremia-- Endocarditis ruled out- Follow BCx results until clear-- CXR appreciated possible PNA vs CHF w/ layering pleural effusion (less likely PNA as per ID) - ID eval appreciated cont empiric Vanc, discontinued empiric zosyn low
suspicion PNA- Echo done at [facility] showed progressed AR. From mild (06/29) to mild - moderate (07/02) to moderate - severe (07/27) - Cardiology Cardiothoracic Surgery consults appreciated--micro waiting for identification of coag neg staph
Persistent Atrial Fibrillation with QT prolongation - s/p MAZE and HARVINDER exclusion on 06/29 - Continue amiodarone, carvedilol- QTc prolonged 505, minimize/avoid use of QT prolonging agents as possible.
Essential Hypertension- Relatively well controlled at this time - cont amlodipine, lasix, coreg with holding parameters
DM-II - Stable. Hold oral agents for now - SSI coverage as needed.
Bilateral LE DVT/History of DVT / PE - Patient noted on US to have bilateral femoral DVTs at [facility] (07/27) - Changed from Pradaxa to Lovenox per Hematology recommendations - Cont Lovenox 110mg BID- Change to IV heparin for bridging if any intervention
/ surgery is planned.
Anemia--likely chronic disease--consider checking iron studies, B12, folate- nursing reports blood found in patient's groin, between legs--ford cath site without bleeding, rectal without bleeding--? vaginal, monitor for now, none further--repeat
H&H appears stable
LIZBETH on CPAP continued
Morbid Obesity due to excess calories - Affects all aspects of care - Encourage healthy diet and increased activity when able with goal of weight reduction.
Ford - Patient arrives at with Ford catheter in place. This was placed at [facility], presumably for I/O determination vs urinary retention - Maintain Ford for now - Eventual trial of void prior to discharge
PT/OT appreciated SNF rehab likely
DVT Prophylaxis: Therapeutic Lovenox
Code Status: Full
d/c planning--waiting for ID finalization of abx
Original Note:
Today's Communication/Plan
-
Waiting for pending blood cultures
Iron studies in a.m.
Monitor for bleeding site
Follow H&H
IV Lasix changed to p.o.
Trend I's and O's and daily weights
Determine anticoagulation plan outpatient (hematology)
Assessment / Plan
Assessment / Plan
A/P: Patient is a 67y F with PMH significant for A-Fib, Obesity, HTN, HLD, DM-II, HFmrEF, valvular heart dz, cardiothoracic surgery, DVT/PE, Endometrial Ca s/p resection/XRT, transferred from [facility] to for evaluation of CHF and possible
endocarditis.
Acute Hypoxemic Respiratory Insufficiency
- Likely due to acute decompensated HF/HFmrEF vs pneumonia.
-Previously suspected to have endocarditis
- Patient tolerated KARL with additional TTE today, no evidence of endocarditis or mitral regurgitation but mild tricuspid regurgitation and mild/moderate pulmonic regurgitation.
- CXR 08/04/23 with b/l Pleural effusion.
- S/p right thoracentesis 08/05/2023 with removal of 500 cc serosanguineous pleural fluid, subsequent CXR negative for pneumothorax.
- S/p left thoracentesis 08/06/2023 with removal of 400 cc serosanguineous pleural fluid, subsequent CXR negative for pneumothorax.
- Improved, supplemental O2 weaned off, currently on room air SaO2 94%.
- Procalcitonin noted to be < 0.5 on labs at [facility].
- Continue supportive care with O2, PAP therapy, etc
- Cardiology / Cardiothoracic Surgery consults appreciated
- PT/OT
- Pain control.
Constipation
-Milk and molasses
Anemia
-Hb 9.7 (9.6 yesterday)
-Likely anemia of chronic disease vs chronic blood loss.
-Nursing reported finding blood in patient's groin area yesterday, further evaluation unrevealing of source (Ford site, rectum without bleeding)�vaginal monitoring.
-Previous iron study, TIBC, B12, and folate all WNL.
-Repeat iron studies.
-Follow H&H, appears stable at this point.
Acute on Chronic HFmrEF
- Daily Weights I/O, weight trending down.
- CR 1.2, monitor while on Lasix.
-IV Lasix 80mg BID changed to p.o.
- Coreg increased from 3.125-6.25
- Sternal precautions lifted, up and walking around as tolerated.
- Cardiology eval appreciated
Staph Bacteremia
- Coagulase-negative staph bacteremia
- Follow BCx results, Positive preliminary Cxs.
-Continue empiric vancomycin while waiting for blood cultures per ID. Empiric Zosyn discontinued previously for low suspicion of pneumonia.
- CXR appreciated possible PNA vs CHF w/ layering pleural effusion (less likely PNA as per ID)
-ID recs appreciated
- Echo done at [facility] showed progressed AR. From mild (06/29) to mild - moderate (07/02) to moderate - severe (07/27).
Persistent Atrial Fibrillation
- s/p MAZE and HARVINDER exclusion on 06/29.
-Amiodarone previously increased by cardiology to 200 mg BID due to persistent A-fib to restore sinus rhythm, QTc prolonged to 516 MS, amiodarone currently reduced back to 200 mg daily. Patient unwilling to inject Lovenox outpatient, hematology to
determine anticoagulation plan for outpatient.
- Outpatient cardioversion planned, however anticoagulation has to be determined first per cardiology.
- Continue labetalol, carvedilol and amiodarone.
- Minimize/avoid use of QT prolonging agents as possible.
-Follow-up outpatient with primary mold loft worker Dr. Hiren Peters of [facility]
Benign Hypertension
- Relatively stable on Norvasc 7.5 and Coreg 6.25.
-Monitor while on Lasix with holding parameters.
DM-II
- Stable. Hold oral agents for now.
- SSI coverage as needed.
Bilateral LE DVT
History of DVT / PE
- Patient noted on US to have bilateral femoral DVTs at [facility] (07/27).
- Changed from Pradaxa to Lovenox per Hematology recommendations.
- Cont Lovenox 110mg BID
- Change to IV heparin for bridging if any intervention / surgery is planned.
LIZBETH on CPAP continued
Morbid Obesity due to excess calories
- Affects all aspects of care.
- Encourage healthy diet and increased activity when able with goal of weight reduction.
Ford
- Patient arrives at with Ford catheter in place. This was placed at [facility], presumably for I/O determination.
- Maintain Ford for now.
- Eventual trial of void prior to discharge
PT/OT appreciated SNF rehab
DVT Prophylaxis: Therapeutic Lovenox
Code Status: Full
Anticipated Discharge: 24 - 48 hours
Subjective/Interval History
-
Date of Service: August 07, 2023
Objective Data
-
Labs:
Laboratory Results
08/07/23
03:32
WBC 4.5 L
Hgb 9.7 L
Hct 29.6 L
Plt Count 175
Sodium 140
Potassium 3.5
Chloride 98
Carbon Dioxide 33 H
BUN 23 H
Creatinine 1.2 H
Glucose 127 H
Calcium 9.0
Vital Signs:
Vital Signs
Temp Pulse Resp BP Pulse Ox
98 F 82 20 143/68 92
08/07/23 07:06 08/07/23 06:00 08/07/23 07:06 08/07/23 03:24 08/07/23 07:06
I&O
08/06/23 08/07/23 08/08/23
06:59 06:59 06:59
Intake Total 240 / 240 1200 / 1200
Output Total 880 / 880 1925 / 1925
Balance -640 / -640 -725 / -725
Review of Systems
-
History Source: Patient
All other systems: Not reviewed unless documented
Constitutional: Reports No Symptoms; Denies Fever
EENT: Reports No Symptoms Reported
Respiratory: Reports Other (Hypoxic on ambulation)
Cardiac: Reports No Symptoms; Denies Chest Pain or Palpitations
Abdomen/GI: Reports No Symptoms; Denies Abdominal Pain or Nausea
Genitourinary: Reports No Symptoms
Musculoskeletal: Reports No Symptoms
Skin: Reports Sores (Left lower extremity)
Neuro: Denies Headache
Endocrine: Reports No Symptoms
Physical Exam
-
General: Well Nourished, No Apparent Distress and Comfortable
HEENT: Moist Mucous Membranes
Respiratory: Clear to Auscultation and Non Labored Respirations; Negative Wheezes, Rales or Rhonchi
Cardiac: Regular Rhythm and Irregular Rhythm
GI: Soft, Nontender, Nondistended and Normal Bowel Sounds
Musculoskeletal: No Clubbing
Skin: Warm
Neuro: Awake, Alert and AO x 3
Psych: Calm
Data Reviewed
-
Diagnostic Radiology: Image personally visualized and interpreted, Report Reviewed by me and Discussed with Physician
Labs: Labs Reviewed by me and Discussed with Physician
Old Records: Reviewed
[2023-08-07] MEDS: PROTONIX 40 MG PO (08:21)
[2023-08-07] MEDS: LOW STRENGTH ASPIRIN 81 MG PO (08:21)
[2023-08-07] MEDS: PACERONE 200 MG PO (08:21)
[2023-08-07] MEDS: NORVASC 7.5 MG PO (08:22)
[2023-08-07] MEDS: COREG 6.25 MG PO ×2 (08:23→20:17)
[2023-08-07] MEDS: FEOSOL 325 MG PO (08:23)
[2023-08-07] MEDS: METAMUCIL, KONSYL 1 PACKET PO (08:24)
[2023-08-07] MEDS: KLOR-CON 20 MEQ PO ×2 (08:24→20:18)
[2023-08-07] MEDS: LASIX 80 MG IV (08:24)
[2023-08-07] MEDS: LOVENOX 110 MG SC ×2 (08:30→20:19)
[2023-08-07] MEDS: MIRALAX PO (08:31)
[2023-08-07] MEDS: RESTASIS 0.05% OPHTHALMIC EMULSION 1 DROPS OPHTH ×2 (08:32→20:19)
[2023-08-07] MEDS: NOVOLOG FLEXPEN-LOW RESISTANCE SC (08:40)
[2023-08-07 08:41] LABS: Glucose - Point of Care 119 mg/dl (70-99)
--- NOTE | 2023-08-07 08:46 | PHA.VAN.FU ---
Vancomycin Assessment / Plan
- Assessment
Renal Function: SCR Decreasing
In the past 24 hrs, patient has been: Afebrile
- Assessment - Therapeutic Drug Monitoring
Random Level: 13.8 - drawn ~24.5H after previous level of 19.7
Calculated ke: 0.0145
Calculated half life (H): 47.7
- Dosing Plan
Dosing by Level: Re-dose today (Vanc 1500mg)
- Monitoring Plan
No level(s) ordered at this time: consider random level for Sun
Monitoring Comments: if level stable, may consider scheduling 1500mg Q48H
- Follow Up
Pharmacy will continue to follow.
Vancomycin Follow UP
- -
Patient Age: 67
Patient Sex: Female
Vancomycin Day #: 6
Indication: Bacteremia
Requesting Provider: Dr. Lopez / Pr[facility]
Pertinent Antimicrobial Allergies:
oxytetracycline - hives
Height / Weight:
Height 5 ft
Actual Weight 100.924 kg
IBW in k.5
Adjusted BW in k.2
Pertinent Past Medical History: BMI ~45, DM
- Vital Signs / Lab Results
Temp Pulse Resp BP Pulse Ox
98 F 80 20 143/57 92
08/07/23 07:06 08/07/23 08:21 08/07/23 07:06 08/07/23 08:21 08/07/23 07:06
Lab Results - Hematology
08/05/23 08/06/23 08/07/23
05:13 03:02 03:32
WBC 6.6 6.4 4.5 L
Lab Results - Chemistry
08/05/23 08/06/23 08/07/23
05:13 03:02 03:32
BUN 28 H 23 H 23 H
Creatinine 1.1 H 1.0 1.2 H
Estimated Creat Clear 52 57 47
Microbiology Results
08/03/23 05:22 Blood Culture - Preliminary
Blood/Venous No Growth in 4 days- Final report to follow
08/05/23 05:13 Blood Culture - Preliminary
Blood/Venous No Growth in 48 hours- Final report to follow
08/04/23 04:47 Blood Culture - Preliminary
Blood/Venous No Growth in 72 hours- Final report to follow
08/02/23 01:23 Blood Culture - Final
Blood/Venous No Growth - Final Report
08/05/23 17:32 Body Fluid Culture - Preliminary
Pleural Fluid No Growth After 18-24 Hours
Gram Stain - Preliminary
08/02/23 01:17 Blood Culture - Preliminary
Blood/Venous Coagulase neg. staphylococcus
Additional testing on request
Gram Stain - Preliminary
Therapeutic Drug Monitoring
Vancomycin Peak Cancelled 08/05/23 13:00
Random Vancomycin 13.8 ug/ml 08/07/23 03:32
--- NOTE | 2023-08-07 09:49 | W.PN.ID1 ---
Date of Service
Date of Service: August 07, 2023
Today's Communication
continue vanco
Assessment / Plan
Coag negative staph bacteremia in the context of recent valve replacement
Progressive shortness of breath
- improved
Suspected exacerbation of CHF
HTN
A-fib
DM
Obesity
CHF
Hx DVT
Hx endometrial CA (s/p SX and XRT)
Recommendations:
Continue vancomycin for the present pending further ID of the CONS
Single blood culture bottle from 08/01 revealing growth of coag negative staph. Microbiology to provide full identification and susceptibility data - awaiting these results.
KARL unrevealing.
Monitor white count and temperature curve.
����������������������������������������������������������
Chief Complaint
-: Bacteremia
Subjective / Review of Systems
afebrile
bp stable
mild leukopenia today
hgb normal
cr 1.2 today
LDH mildly elevated yesterday
08/02 and 08/03 blood cultures no growth to date
no compliants
Vital Signs / Physical Exam
Vital Signs
Vital Signs
Temp Pulse Resp BP Pulse Ox
98 F 80 20 143/57 92
08/07/23 07:06 08/07/23 08:21 08/07/23 07:06 08/07/23 08:21 08/07/23 07:06
Physical Exam
Constitutional: No Acute Distress and Obese
Cardiovascular: Regular Rate and S1/S2; Negative Murmur or Rub
Pulmonary: Clear and Symmetric; Negative Wheezes or Rales
Gastrointestinal: Soft, Non Tender, Non Distended and Normal Bowel Sounds
Skin: Warm and Dry; Negative Rash or Jaundice
Wound: Other (sternal and subclavicular surgical sites clean dry no erythema, no warmth, no tenderness, no dehiscence)
Objective Data
Lab Data
Lab Results
08/07/23 03:32
08/07/23 03:32
Estimated Creat Clear 47 ml/min 08/07/23 03:32
Total Bilirubin 0.7 mg/dl (0.2-1.3) 08/02/23 05:50
AST 20 U/L (14-36) 08/02/23 05:50
ALT 12 U/L (0-35) 08/02/23 05:50
Alkaline Phosphatase 68 U/L (38-126) 08/02/23 05:50
Most recent labs reviewed.
Micro Results:
08/02/23 01:17 Blood Culture - Preliminary
Blood/Venous Coagulase neg. staphylococcus
Gram Stain - Preliminary
08/03/23 05:22 Blood Culture - Preliminary
Blood/Venous No Growth in 4 days- Final report to follow
08/05/23 05:13 Blood Culture - Preliminary
Blood/Venous No Growth in 48 hours- Final report to follow
08/04/23 04:47 Blood Culture - Preliminary
Blood/Venous No Growth in 72 hours- Final report to follow
08/02/23 01:23 Blood Culture - Final
Blood/Venous No Growth - Final Report
08/05/23 17:32 Body Fluid Culture - Preliminary
Pleural Fluid No Growth After 18-24 Hours
Gram Stain - Preliminary
Microbiology:
07/30/2023 1152 Blood culture: Coag negative staph (performed at [facility])
- Staphylococcus epidermidis (1 of 2 bottle)
07/28/2023 1400 Blood culture: Coag negative staph (performed at [facility])
- Staphylococcus epidermidis (1 of 2 bottle)
Imaging:
08/02/2023 CXR (portable): No visualized pneumothorax. Opacification of both lower lung fajardo concerning for pneumonia. Obscuration of the left hemidiaphragm concerning for left lower lobe pneumonia. Mild patchy airspace disease.
07/28/2023 ECHO (TTE): Study is technically difficult and technically limited. Mild to moderately dilated left atrium. Large pleural effusion in the left lateral region. Aortic valve is focally thickened and trileaflet. Moderate to severe aortic
regurgitation. Moderate tricuspid regurgitation. Moderate pulmonic valve regurgitation. EF approximately 45%. The bioprosthetic mitral valve is appreciated in the appropriate position and appears well-seated. (Study performed at [facility])
--- NOTE | 2023-08-07 10:53 | W.PN.CARDCBS ---
Addendum entered and electronically signed by Gracie Vigil DO 08/07/23 16:12:
I saw and examined the patient.
The [facility] Nursing Director's note was reviewed and I agree with the note.
Comment: Patient seen and examined sitting out of bed to chair. States improved shortness of breath and edema. No palpitations. Reviewed anticoagulation with Lovenox as recommended by hematology at [facility]. Patient has not had
outpatient hematology follow-up and states that she is not willing to self inject Lovenox at home; previously on Pradaxa
GEN: No distress, awake, alert, oriented x3. appears older than stated age. obese
HEENT: mmm
LUNGS: Bronchovesicular breath sounds decreased at bases but clear
CV: Irreg, S1/S2, / syst LSB + PPM
ABD: soft, BS+, NT/ND
EXT: . trace edema of B/L LE with chronic skin discoloration
Skin: Sternotomy and L chest incisions healing well.
Plan:
-She is status post bioprosthetic MVR, TV repair, MAZE, HARVINDER clip 06/30/23.
-There was concern from [facility] for worsening AI by TTE. KARL 08/05/2023 with moderate AR, and stable MVR and TV repair without evidence of endocarditis or device lead vegetation, results reviewed with patient 08/04
-Coag negative staph bacteremia in the context of recent valve replacement. Continue antibiotics per ID
-s/p R thoracentesis for 500cc serosanguineous fluid. She has been weaned off supp O2.
-Transition to oral Lasix 80 mg twice daily
-Repeat basic metabolic profile in 1 week
-Atrial fibrillation
-Atrial fibrillation noted on device interrogation since 07/09/23
-she underwent MAZE at time of MVR/TV repair 06/29.
-QTc prolonged and will reduce amiodarone to 200 mg once daily
-She is currently on anticoagulation with Lovenox per hematology at [facility] (was on pradaxa when DVTs found 07/28/23 at [facility]) however has indicated that she does not feel comfortable injecting. She was previously on Pradaxa. She has
an upcoming outpatient follow-up with hematology in early August and I have encouraged her to keep this appointment. Can discuss further rhythm control strategy options once long-term anticoagulation management has been determined by hematology
-BPs stable on norvasc 7.5mg daily and coreg 6.25mg BID.
-ideally would place on SGLT2 inhibitor, however does not appear to be ideal candidate due to increased risk for mycotic infections due to body habitus and current ford catheter
Will sign off, recall if needed
Original Note:
Today's Communication / Plan
-
po lasix 80mg BID
BMP in 1 week
QTc 516ms on amiodarone 200mg BID by EKG this AM, may need to reduce dose back to daily
continue lovenox, to discuss jail OAC with [facility] hematology prior to CV consideration
OP follow up with Dr. Peters arranged
Impression / Plan
-
Primary Director Of Parks And Recreation: Dr. Hiren Peters of [facility]
Assessment:
Shortness of breath, weakness
Staph epidermidis bacteremia
Heart failure with preserved ejection fraction
Worsening of aortic valve insufficiency suspected, mod AI by KARL 08/04
Previous symptomatic mod to severe MR s/p bioprosthetic MVR, TV repair, MAZE, HARVINDER clip 06/30/23
SSS s/p [employer] DC PPM 2017/revision 2023
-Abandoned right atrial lead, nonfunctional, status post right atrial lead revision and generator change 06/2023
Persistent afib (recurrent)
-Previously on chronic sotalol and pradaxa therapy
-Cardioversion 07/06/2023 to sinus rhythm on amiodarone
Bilateral DVT per hematology at [facility] appears to be failure of Pradaxa now on Lovenox
-History of DVT/PE in 2012
HTN
HLD
NIDDM
NSVT
Obesity
Chronic venous insufficiency/chronic lymphedema
Testing at [facility]:
CT chest was done (07/31/23) showing no PE, bibasilar infiltrates v atelectasis and bilateral pleural effusions.
Echo was done (07/28/23) showing large L pleural effusion and moderate - severe AR (previously moderate here on 07/02). LVEF was 45-50%.
TTE 04/27/2023 at [facility]: EF 55 to 60%, normal RV function, moderate to severe eccentric RI
KARL 04/29/23 at [facility]: Moderately severe dilated left atrium, moderately dilated right atrium, moderate to severe eccentric RI with moderate TI, EF felt to be mildly reduced visually
Echocardiogram July 03, 2023, EF 50%, status post mitral valve replacement with no MR and mean gradient of 4, mild to moderate aortic regurgitation, status post tricuspid valve repair with mild TR. PA pressure 35-40. No significant pericardial
effusion.
ECHO 07/03/23: EF 50%, status post chordal sparing mitral valve replacement, no MR seen, peak/mean gradients 12/4 mmHg, mild to moderate AR, TV repair with 28 mm band annuloplasty with mild TR, PAP 35 to 40 mmHg, mild to moderate UT, prominent
anterior fat pad with no significant pericardial effusion
KARL 08/05/23: EF 50 to 55%, status post bio MVR with mean gradient 5 mmHg, no MR, moderate AR, status post TV repair with mild TR, mild to moderate UT, no evidence of endocarditis, no evidence of device lead vegetation
Plan:
-She is status post bioprosthetic MVR, TV repair, MAZE, HARVINDER clip 06/30/23. She presented with shortness of breath.
-There was concern from [facility] for worsening AI by TTE completed there. KARL 08/05/2023 with moderate AR, and stable MVR and TV repair without evidence of endocarditis or device lead vegetation, results reviewed with patient 08/04
-Continue antibiotics per ID
-s/p R thoracentesis for 500cc serosanguineous fluid. off supp O2. transitioned to po lasix 80mg BID for DC. Cr 1.2. weight 222 pounds which should be considered her new dry weight
-BMP in 1 week
-has been in afib since 07/09/23 by device interrogation. rate controlled on review of tele overnight. she underwent MAZE at time of MVR/TV repair 06/29. amiodarone increased to 200mg BID 08/05. had been on sotalol pre valve surgery which was stopped
due to CHF. QTc by EKG 08/06 516ms, will review with mine safety director, has PPM in place
-currently on OAC with lovenox for afib and DVT (was on pradaxa when DVTs found 07/28/23 at [facility]). hgb 9.7 on 08/06. will need to establish with [facility] hematology if lovenox is to be patient's jail OAC prior to considering CV
-BPs stable on norvasc 7.5mg daily and coreg 6.25mg BID.
-ideally would place on SGLT2 inhibitor, however does not appear to be ideal candidate due to increased risk for mycotic infections due to body habitus and current ford catheter
-OP follow up with Dr. Peters arranged
-d/w nursing
Progress Note - Director Of Parks And Recreation
Subjective
Date of Service: August 07, 2023
denies issues with breathing overnight
Objective
Labs:
08/07/23 03:32
08/07/23 03:32
Labs
Hgb 9.7 g/dL (12.0-16.0) L 08/07/23 03:32
Hct 29.6 % (37.0-47.0) L 08/07/23 03:32
Plt Count 175 10^3/uL (130-400) 08/07/23 03:32
Sodium 140 mmol/L (135-145) 08/07/23 03:32
Potassium 3.5 mmol/L (3.5-5.1) 08/07/23 03:32
BUN 23 mg/dl (7-17) H 08/07/23 03:32
Creatinine 1.2 mg/dL (0.6-1.0) H 08/07/23 03:32
Glucose 127 mg/dl (70-99) H 08/07/23 03:32
Vital Signs and I&O:
Vital Signs
Temp Pulse Resp BP Pulse Ox
98 F 80 20 143/57 92
08/07/23 07:06 08/07/23 08:21 08/07/23 07:06 08/07/23 08:21 08/07/23 07:06
Vital Signs
Temp Pulse Resp BP Pulse Ox
98 F 80 20 143/57 92
08/07/23 07:06 08/07/23 08:21 08/07/23 07:06 08/07/23 08:21 08/07/23 07:06
Intake & Output
08/05/23 08/06/23 08/07/23 08/08/23
07:59 07:59 07:59 07:59
Intake Total 600 / 600 240 / 240 1200 / 1200
Output Total 1225 / 1225 880 / 880 1925 / 1925
Balance -625 / -625 -640 / -640 -725 / -725
Physical Exam
Physical Exam
GEN: No distress, awake, alert, oriented x3. appears older than stated age. obese
HEENT: supple, anicteric, mmm, eomi
LUNGS: few crackles RLB
CV: Irreg, S1/S2, 1/6 syst LSB
ABD: soft, BS+, NT/ND
EXT: No cyanosis, clubbing. tubigrips in place
NEURO: Gross non-focal
SKIN: Warm, pink, dry. No rash. Sternotomy and L chest incisions healing well.
[2023-08-07] MEDS: VANCOCIN 300 ML IV (11:59)
[2023-08-07] MEDS: VANCOCIN 300 MG IV (11:59)
[2023-08-07 12:10] LABS: Glucose - Point of Care 167 mg/dl (70-99)
[2023-08-07] MEDS: NOVOLOG FLEXPEN-LOW RESISTANCE 1 UNITS SC ×2 (13:08→17:46)
--- NOTE | 2023-08-07 14:56 | PTCARENOTE ---
Pena catheter removed for voiding trial. pt continues is afib on the monitor, hr in the 80s, vss. pt c/o of pain in leg and hand, tylenol given as ordered. pt resting in chair comfortably. pt educated on plan of care. call javier within reach.
[2023-08-07] MEDS: MORPHINE SULFATE 1 MG IV (16:35)
[2023-08-07 17:10] LABS: Glucose - Point of Care 163 mg/dl (70-99)
--- NOTE | 2023-08-07 18:25 | PTCARENOTE ---
pt c/o pain in lower legs, notified dr. salazar, ordered morphine, given as ordered, see MAR. pt stated 'I found some relief but it is not all gone.' pt has been sitting up in chair throughout the day with no issue. Pt has not voided since Pena
removal and is due to void at 1900. pt has no urge to void. pt educated on plan of care and pt verbalized understanding. call javier in place.
[2023-08-07] MEDS: LASIX 80 MG PO (20:18)
[2023-08-07 21:32] LABS: Glucose - Point of Care 218 mg/dl (70-99)
[2023-08-07] MEDS: MELATONIN 3 MG PO (22:35)
[2023-08-08] VITALS (40 sets, daily range): BP systolic 5–140; BP diastolic 51–79; BMI 43.9
--- NOTE | 2023-08-08 04:12 | PTCARENOTE ---
Patient OOB for 3 hrs this shift. Tolerated well but did c/o pain at site of right leg leg hematoma. Ice applied to site and Tylenol for pain management. At 21:00 Patient voided 100ml yellow urine on BSC. Attempted multiple times for bladder
scan but image not showing clearly. Best scan showed 9ml residual. No distension or patient c/o pressure noted. At 3:30 Bladder scanned for 97ml after moderate incontinent void.
[2023-08-08 04:14] LABS: % Basophils 0.5 % (0-2); % Immature Granulocytes 0.6 % (0-0.5); % Lymphocytes 15.6 % (20.5-51.1); % Monocytes 11.5 % (1.7-9.3); % Neutrophils 69.8 % (42.2-75.2); Absolute Eosinophils 0.2 10^3/uL (0-0.7); Absolute Immature Granulocytes 0.1 10^3/uL (0-0.05); Absolute Lymphocytes 1.3 10^3/uL (1.2-3.4); Absolute Monocytes 0.9 10^3/uL (0.1-0.6); Absolute Neutrophils 5.7 10^3/uL (1.4-6.5); Hematocrit 24.5 % (37.0-47.0); Hemoglobin 7.8 g/dL (12.0-16.0); Mean Corp Hgb Conc. 31.8 g/dL (33.0-37.0); Mean Corpuscular Hgb 30.5 pg (27.0-31.0); Mean Corpuscular Volume 95.7 fL (81.0-99.0); Mean Platelet Volume 10.1 fL (7.4-10.4); Nucleated Red Blood Cells % 0 %; Platelet Count 198 10^3/uL (130-400); Red Blood Cell Count 2.56 10^6/uL (4.20-5.40); Red Cell Dist. Width 15.8 % (11.5-14.5); White Blood Cell Count 8.1 10^3/uL (4.8-10.8)
[2023-08-08 04:28] LABS: Blood Urea Nitrogen 25 mg/dl (7-17); Calcium 8.7 mg/dl (8.4-10.2); Carbon Dioxide 29 mmol/L (22-30); Chloride 96 mmol/L (98-107); Estimated Creatinine Clearance 43 ml/min; Glucose 188 mg/dl (70-99); Iron 52 ug/dl (37-170); Magnesium 2.2 mg/dl (1.6-2.3); Phosphorus 4.6 mg/dl (2.5-4.5); Potassium 3.2 mmol/L (3.5-5.1); Sodium 133 mmol/L (135-145); eGFR 44.24
[2023-08-08 04:37] LABS: Percent Saturation 20 % (20-50); Total Iron Binding Capacity 255 ug/dl (265-497)
[2023-08-08] MEDS: TYLENOL 650 MG PO ×3 (06:05→23:26)
[2023-08-08 07:14] LABS: Glucose - Point of Care 218 mg/dl (70-99)
[2023-08-08] MEDS: NOVOLOG FLEXPEN-LOW RESISTANCE 2 UNITS SC (07:42)
[2023-08-08] MEDS: PROTONIX 40 MG PO (07:52)
[2023-08-08] MEDS: LOW STRENGTH ASPIRIN 81 MG PO (07:53)
[2023-08-08] MEDS: COREG 6.25 MG PO ×2 (07:53→21:26)
[2023-08-08] MEDS: KLOR-CON 20 MEQ PO ×2 (07:53→21:26)
[2023-08-08] MEDS: LASIX 80 MG PO ×2 (07:53→21:27)
[2023-08-08] MEDS: NORVASC 7.5 MG PO (07:54)
[2023-08-08] MEDS: FEOSOL 325 MG PO (07:55)
[2023-08-08] MEDS: PACERONE 200 MG PO (07:55)
[2023-08-08] MEDS: MIRALAX PO (07:55)
[2023-08-08] MEDS: RESTASIS 0.05% OPHTHALMIC EMULSION 1 DROPS OPHTH ×2 (07:56→21:27)
[2023-08-08] MEDS: METAMUCIL, KONSYL 1 PACKET PO (07:56)
--- NOTE | 2023-08-08 08:13 | W.PN.HOSP.TC ---
Addendum entered and electronically signed by Marilin Benitez MD 08/08/23 20:10:
Patient seen and examined independently--agree with plan set forth by Dr. Arredondo
GENERAL: well developed, well nourished, female in some discomfort
HEENT: NC/AT--off O2, on room air
HEART: irreg irreg--no murmur noted
LUNGS : clear to auscultation bilaterally--better breath sounds at bases bilaterally
ABDOM: soft, nontender, nondistended, + bowel sounds--bruises on abdomen from lovenox shots
EXT: no cyanosis, clubbing--large right calf hematoma causing tense area with pain
NEUROLOGIC: grossly intact
: ford
Acute hematoma of RLE causing acute blood loss anemia--Spontaneous large, tense hematoma of right calf, most likely caused by Lovenox anticoagulation--Stop Lovenox--urgent consult to vascular surgery--took pt to OR for evacuation of hematoma--3
units of FFP given to reverse coagulopathy and pRBC given--consult heme--Check PT/PTT, INR and Fibrinogen, H&H,type and cross--Follow H&H every 6 hours and transfuse if HGB < 8--Midline for vascular access, IV team appreciated.
Acute Hypoxemic Respiratory Insufficiency-- resolved--likely due to CHF exac from presumed endocarditis (subsequently ruled out)--KARL 08/04 without evidence of vegetations--now on room air--s/p bilateral thoracentesis (right 500mls, left 400mls),
transudative fluid- apprec IR for thoracentesis--blood culture positive for coag neg staph, otherwise neg-- will continue with antibiotics as per ID, waiting for final identification of bacteria--Procalcitonin noted to be < 0.5 on labs at [facility], CPAP
therapy, etc--apprec pulm/cards input--diurese as able
Acute on Chronic diastolic (preserved EF) - Daily Weights I/O Lasix transitioned to oral - Cardiology eval appreciated--apprec IR consult for thoracentesis
Staph Bacteremia-- Endocarditis ruled out by KARL, no vegetations on the valves-- ID eval appreciated cont empiric Vanc, discontinued empiric zosyn low suspicion PNA on CXR- Echo done at [facility] showed progressed AR. From mild (06/29) to mild - moderate
(07/02) to moderate - severe (07/27) - Cardiology Cardiothoracic Surgery consults appreciated-- identification of coag neg staph is Staph epi (same bacteria as previously noted)
Persistent Atrial Fibrillation with QT prolongation - s/p MAZE and HARVINDER exclusion on 06/29 - Continue amiodarone, carvedilol- QTc prolonged 505, minimize/avoid use of QT prolonging agents as possible.
Essential Hypertension- Relatively well controlled at this time - cont amlodipine, lasix, coreg with holding parameters
DM-II - Stable. Hold oral agents for now - SSI coverage as needed.
Bilateral LE DVT/History of DVT / PE - Patient noted on US to have bilateral femoral DVTs at [facility] (07/27) - Changed from Pradaxa to Lovenox per Hematology recommendations - Cont Lovenox 110mg BID- Change to IV heparin for bridging if any intervention
/ surgery is planned.
Anemia--likely chronic disease--consider checking iron studies, B12, folate- nursing reports blood found in patient's groin, between legs--ford cath site without bleeding, rectal without bleeding--? vaginal, monitor for now, none further--repeat
H&H appears stable
LIZBETH on CPAP continued
Morbid Obesity due to excess calories - Affects all aspects of care - Encourage healthy diet and increased activity when able with goal of weight reduction.
Ford - Patient arrives at with Ford catheter in place. This was placed at [facility], presumably for I/O determination vs urinary retention - Maintain Ford for now - Eventual trial of void prior to discharge
PT/OT appreciated SNF rehab likely
DVT Prophylaxis: Therapeutic Lovenox
Code Status: Full
Total Critical Care Time 39 minutes. I was immediately available to the patient and staff. I personally examined, reviewed labs, diagnostic images/reports, interpretations, treatment plans, discussed patient care with other providers and family
or caregivers (if patient is unable to make decisions), entered orders as appropriate and documented the medical record.
Original Note:
Today's Communication/Plan
-
S/p urgent washout/evacuation hematoma right calf
Hold Eliquis
Pain control
PT/OT
H&H every 6 hours
IR consult
Heam consult
Continue IV Lasix
Assessment / Plan
Assessment / Plan
A/P: Patient is a 67y F with PMH significant for A-Fib, Obesity, HTN, HLD, DM-II, HFmrEF, valvular heart dz, cardiothoracic surgery, DVT/PE, Endometrial Ca s/p resection/XRT, transferred from [facility] to for evaluation of CHF and possible
endocarditis.
Acute Hypoxemic Respiratory Insufficiency
- Likely due to acute decompensated HF/HFmrEF vs pneumonia.
-Previously suspected to have endocarditis
- Patient tolerated KARL with additional TTE today, no evidence of endocarditis or mitral regurgitation but mild tricuspid regurgitation and mild/moderate pulmonic regurgitation.
- CXR 08/04/23 with b/l Pleural effusion.
- S/p right thoracentesis 08/05/2023 with removal of 500 cc serosanguineous pleural fluid, subsequent CXR negative for pneumothorax.
- S/p left thoracentesis 08/06/2023 with removal of 400 cc serosanguineous pleural fluid, subsequent CXR negative for pneumothorax.
- Improved, supplemental O2 weaned off, currently on room air SaO2 94%.
- Procalcitonin noted to be < 0.5 on labs at [facility].
- Continue supportive care with O2, PAP therapy, etc
- Cardiology / Cardiothoracic Surgery consults appreciated
- PT/OT
- Pain control.
Constipation
-Milk and molasses
Metabolic alkalosis
-Most likely due to dehydration given BUN/creatinine level.
-Hyponatremic hypokalemia.
-IV fluid
-Replete electrolytes as needed
Anemia
-Presentation with chronic anemia, most likely anemia of chronic disease.
-Hb acutely dropped to 7.8 (9.7 yesterday), TIBC 255, ferritin 156. S/p 2U PRBC, for Hb decline to 7.4.
-Hold iron tablets for now.
-Nursing reported finding blood in patient's groin, further evaluation unrevealing of source (Ford site, rectum without bleeding)�vaginal monitoring.
-Heamatology consult
-IV consult for vascular access.
-Previous iron study, TIBC, B12, and folate all WNL.
Acute hematoma of RLE
-Spontaneous large, tense hematoma of right calf, most likely caused by Lovenox anticoagulation.
-Stop Lovenox.
-S/p urgent washout/evacuation hematoma (Dr. Chowdhury).
-S/p FFP 3 unit for Eliquis reversal.
-Vascular surgery appreciated.
-Check PT/PTT, INR and Fibrinogen, H&H,type and cross.
-Follow H&H every 6 hours and transfuse as needed.
-Midline for vascular access, IV team appreciated.
Acute on Chronic HFmrEF
- Daily Weights I/O, weight trending down.
- CR 1.2, monitor while on Lasix.
-IV Lasix 80mg BID changed to p.o.
- Coreg increased from 3.125-6.25
- Sternal precautions lifted, up and walking around as tolerated.
- Cardiology eval appreciated
Staph Bacteremia
- Coagulase-negative staph bacteremia
- Follow BCx results, Positive preliminary Cxs.
-Continue empiric vancomycin while waiting for blood cultures per ID. Empiric Zosyn discontinued previously for low suspicion of pneumonia.
- CXR appreciated possible PNA vs CHF w/ layering pleural effusion (less likely PNA as per ID)
-ID recs appreciated
- Echo done at [facility] showed progressed AR. From mild (5/14) to mild - moderate (5/17) to moderate - severe (6/11).
Persistent Atrial Fibrillation
- s/p MAZE and HARVINDER exclusion on 06/29.
-Amiodarone previously increased by cardiology to 200 mg BID due to persistent A-fib to restore sinus rhythm, QTc prolonged to 516 MS, amiodarone currently reduced back to 200 mg daily. Patient unwilling to inject Lovenox outpatient, hematology to
determine anticoagulation plan for outpatient.
- Outpatient cardioversion planned, however anticoagulation has to be determined first per cardiology.
- Continue labetalol, carvedilol and amiodarone.
- Minimize/avoid use of QT prolonging agents as possible.
-Follow-up outpatient with primary survey instrument operator Dr. Hiren Peters of [facility]
Benign Hypertension
- Relatively stable on Norvasc 7.5 and Coreg 6.25.
-Monitor while on Lasix with holding parameters.
DM-II
- Stable. Hold oral agents for now.
- SSI coverage as needed.
Bilateral LE DVT
History of DVT / PE
- Patient noted on US to have bilateral femoral DVTs at [facility] (07/27).
- Changed from Pradaxa to Lovenox per Hematology recommendations.
- Cont Lovenox 110mg BID
- Change to IV heparin for bridging if any intervention / surgery is planned.
LIZBETH on CPAP continued
Morbid Obesity due to excess calories
- Affects all aspects of care.
- Encourage healthy diet and increased activity when able with goal of weight reduction.
Ford
- Patient arrives at with Ford catheter in place. This was placed at [facility], presumably for I/O determination.
- Maintain Ford for now.
- Eventual trial of void prior to discharge
PT/OT appreciated SNF rehab
DVT Prophylaxis: Therapeutic Lovenox
Code Status: Full
Anticipated Discharge: > 48 hours
Subjective/Interval History
-
Date of Service: August 08, 2023
Objective Data
-
Labs:
Laboratory Results
08/08/23
03:41
WBC 8.1
Hgb 7.8 L
Hct 24.5 L
Plt Count 198
Sodium 133 L
Potassium 3.2 L
Chloride 96 L
Carbon Dioxide 29
BUN 25 H
Creatinine 1.3 H
Glucose 188 H
Calcium 8.7
Vital Signs:
Vital Sign
Max Temp 24 hrs
08/07/23
23:00
Temp 98.6 F
Temp Pulse Resp BP Pulse Ox
97.8 F 93 16 126/76 98
08/08/23 07:09 08/08/23 07:09 08/08/23 07:09 08/08/23 03:29 08/08/23 07:09
I&O
08/07/23 08/08/23 08/09/23
06:59 06:59 06:59
Intake Total 1200 / 1200 240 / 240
Output Total 1925 / 1925 750 / 750
Balance -725 / -725 -510 / -510
Review of Systems
-
History Source: Patient
All other systems: Not reviewed unless documented
Constitutional: Reports No Symptoms; Denies Fever
EENT: Reports No Symptoms Reported
Respiratory: Reports No Symptoms and Other; Denies Trouble Breathing or Wheezing
Cardiac: Reports No Symptoms; Denies Chest Pain or Palpitations
Abdomen/GI: Reports No Symptoms; Denies Abdominal Pain or Nausea
Genitourinary: Reports No Symptoms
Musculoskeletal: Reports No Symptoms and Other (The hematoma on right leg)
Skin: Reports Sores (Left lower extremity) and Other (Multiple bruises)
Neuro: Denies Headache
Endocrine: Reports No Symptoms
Hematologic / Lymphatic: Reports Bleeding, Bruising and Other (Right leg hematoma)
Physical Exam
-
General: Well Nourished, No Apparent Distress, Comfortable and Pain (Right leg pain)
HEENT: Moist Mucous Membranes
Respiratory: Clear to Auscultation and Non Labored Respirations; Negative Wheezes, Rales or Rhonchi
Cardiac: Regular Rhythm and Irregular Rhythm
GI: Soft, Nontender, Nondistended and Normal Bowel Sounds
Musculoskeletal: No Clubbing and Other (Multiple bruises)
Skin: Warm and Other (Multiple bruises, hematoma)
Neuro: Awake, Alert, Oriented and AO x 3
Hematologic / Lymphatic: Other (Large hematoma right leg)
Psych: Calm
Data Reviewed
-
Diagnostic Radiology: Image personally visualized and interpreted, Report Reviewed by me and Discussed with Physician
CT Scan: Report Reviewed by me and Discussed with Physician
Labs: Labs Reviewed by me and Discussed with Physician
Old Records: Reviewed
[2023-08-08] MEDS: LOVENOX SC (09:14)
--- NOTE | 2023-08-08 09:22 | W.PN.UPDATE ---
Update Note
Progress Note Update
On therapeutic lovenox, had drop in hemoglobin and new swelling of the RLE, highly suspicious for hematoma. Hold Lovenox, CT A/P with run off, vascular consult.
--- NOTE | 2023-08-08 10:04 | PHA.VAN.FU ---
Vancomycin Assessment / Plan
- Assessment
Renal Function: SCR Increasing
WBC's are: Trending Up
In the past 24 hrs, patient has been: Afebrile
- Dosing Plan
Continue: Dose by level
Dosing by Level: Hold off on dosing today
- Monitoring Plan
Random Level: 6/23 AM
- Follow Up
Pharmacy will continue to follow.
Vancomycin Follow UP
- -
Patient Age: 67
Patient Sex: Female
Vancomycin Day #: 7
Indication: Bacteremia
Requesting Provider: Dr. Lopez / Prachi
Pertinent Antimicrobial Allergies:
oxytetracycline - hives
Height / Weight:
Height 5 ft
Actual Weight 101.968 kg
IBW in k.5
Adjusted BW in k.2
Pertinent Past Medical History: BMI ~45, DM
- Vital Signs / Lab Results
Temp Pulse Resp BP Pulse Ox
97.8 F 96 16 140/59 98
08/08/23 07:09 08/08/23 08:45 08/08/23 07:09 08/08/23 07:11 08/08/23 07:09
Lab Results - Hematology
08/06/23 08/07/23 08/08/23
03:02 03:32 03:41
WBC 6.4 4.5 L 8.1
Lab Results - Chemistry
08/06/23 08/07/23 08/08/23
03:02 03:32 03:41
BUN 23 H 23 H 25 H
Creatinine 1.0 1.2 H 1.3 H
Estimated Creat Clear 57 47 43
Microbiology Results
08/02/23 01:17 Blood Culture - Preliminary
Blood/Venous Staphylococcus epidermidis
Gram Stain - Preliminary
08/03/23 05:22 Blood Culture - Final
Blood/Venous No Growth - Final Report
08/05/23 05:13 Blood Culture - Preliminary
Blood/Venous No Growth in 72 hours- Final report to follow
08/04/23 04:47 Blood Culture - Preliminary
Blood/Venous No Growth in 4 days- Final report to follow
08/05/23 17:32 Body Fluid Culture - Preliminary
Pleural Fluid No Growth After 48 Hours
Gram Stain - Preliminary
08/02/23 01:23 Blood Culture - Final
Blood/Venous No Growth - Final Report
Therapeutic Drug Monitoring
Vancomycin Peak Cancelled 08/07/23 15:19
Random Vancomycin 13.8 ug/ml 08/07/23 03:32
--- NOTE | 2023-08-08 10:05 | PTCARENOTE ---
Pt c/o R lower leg pain. Pt rated it 5/10, she has ice pack at R outer calf area where there is a hematoma. Pt 's leg just below her R knee is swollen and taught. +DP pulse with doppler. and Dr Claros aware and making rounds. Vascular
consult ordered, CT angiogram ordered, IV team notified to start new #20G IV and Pt sent for the test. Report given to nurse in vascular lab. Pt taken over to vascular lab.
[2023-08-08 10:19] LABS: INR 1.22; PT 15.2 Sec (11.4-14.6)
[2023-08-08 10:20] LABS: APTT 48.4 Sec (23.4-35.0); Fibrinogen 426 MG/DL (199-459)
--- NOTE | 2023-08-08 10:46 | W.PN.UPDATE ---
Update Note
Progress Note Update
67-year-old female with extensive medical history significant for hypertension, A-fib, valvular heart disease status post mitral valve replacement/TV repair Maze procedure 514. This was done by Dr. Andrew Claros. Here at [place]. Patient
eventually was transferred to rehabilitation center. Subsequently with increased shortness of breath she was brought back here and treated. She underwent diuresis and antibiotics for possible pneumonia as well. Subsequent concern for possible
endocarditis when she was transferred out again. Therefore transferred back here. I was called urgently today and urgently saw the patient just now and CT scan secondary to concern for significant right calf swelling and concern for a large
hematoma. Patient notes to me that she has had chronic bilateral lymphedema. Right side is always slightly more swollen than the left. However over the last week or so (she is unclear exactly when) she has had significant increase swelling or
hematoma in that calf. Unclear of any traumatic issues that would have incited it. She is maintained on anticoagulation. However, yesterday to today increased swelling and pain noted.
Notes she has been maintained on therapeutic dose of Lovenox.
On exam/she is awake and alert. Breathing is unlabored currently. Abdomen is soft, obese. Habitus of the legs is very large. She has chronic lymphedema and chronic venous changes with hyperpigmentation and extensive lipodermatosclerosis
throughout both calves. However her right calf mainly posteriorly but somewhat circumferentially with significant swelling and moderate tenderness. Swelling feels like a hematoma. No pulsatile mass that I can palpate. Skin is intact without
blistering currently. Feet are both pink and warm and well-perfused. Motor and sensory function intact bilaterally.
CT scan reviewed. No active extravasation per se (no definitive leakage from blood vessels), however there is a layering of hematoma (large hematoma) in the posterior calf. There is a couple bright spots/foci but does not appear to connect to any
direct blood vessel. All within the subcutaneous space, muscle compartments all spared.
Plan/ Tense hematoma right calf (apparently spontaneous, on Lovenox). Discussed urgent washout/evacuation hematoma with the patient. Discussed alternatives and risks to skin/limb without intervention. Discussed procedure as well as risks
including but not limited to bleeding/infection/wound complications. Discussed heightened wound complication risk given size of hematoma, stretch on skin, chronic condition of skin with lymphedema/lipodermatosclerosis etc. She understands all
wishes to proceed. Will plan urgent OR. Operating room staff contacted already. Nursing production assembly supervisor contacted. Discussed via [facility] text with CT surgeon and hospitalist.
--- NOTE | 2023-08-08 10:46 | W.SUR.PREOP ---
Pre-Operative Surgical Note
-
I have examined this patient prior to the performance of the scheduled procedure.
The patient's condition is unchanged from the time of the current History and
Physical and the patient is able to undergo the scheduled procedure.
[2023-08-08] MEDS: NOVOLOG FLEXPEN-LOW RESISTANCE SC (11:30)
[2023-08-08 11:53] LABS: Glucose - Point of Care 206 mg/dl (70-99)
[2023-08-08 12:33] LABS: Hematocrit 23.5 % (37.0-47.0); Hemoglobin 7.4 g/dL (12.0-16.0)
--- NOTE | 2023-08-08 12:51 | OR.RPT ---
Operative Report
Operative Report
PROCEDURE DATE: 08/08/2023
Preoperative diagnosis: Tense hematoma right calf
Postoperative diagnosis: Same
Procedure: Evacuation massive hematoma right calf. Washout right calf. Closure over drains.
Surgeon: [place]
Airplane Charter Clerk: None
Complications: None
Anesthesia: General
Indications for procedure:
Spontaneous tense hematoma right calf. Patient on anticoagulation (Lovenox). Extensive medical history. Risk/benefits/alternatives of evacuation and washout were all fully discussed. Though the skin had not blistered yet, there were early
changes to the skin that became concerning. Therefore she was urgently taken to the OR.
Description of procedure:
Patient was identified brought to the operating room placed on the table in supine position. After the adequate administration of anesthesia she was prepped and draped in the standard surgical fashion. A standard preoperative timeout was
undertaken and everybody was in agreement the plan. I made a longitudinal incision in the medial calf overlying the tense subcutaneous tissue. This was carried through the skin and into the subcutaneous tissue with electrocautery. I immediately
encountered massive amount of fresh liquefied blood. This was all evacuated. (Likely at least 600 mL). Once I did this I was able to pack the cavities. The hematoma cavity extended posteriorly in the subcutaneous space from the medial aspect
where it made my incision all the way to the skin overlying the lateral/anterior compartments. It was all in the subcutaneous tissues. No major active bleeding was noted from any major vascular source, but diffuse oozing was noted throughout the
tissues. The oozing was also noted to be thin/watery in nature. Likely secondary to anticoagulation. I used the electrocautery to cauterize any active bleeders. Clips were applied to any subcutaneous small vein branches. Given that there was
some continued oozing, I made an incision on the lateral aspect longitudinally of the leg overlying the anterior/lateral compartment. This was carried into the subcutaneous tissue as well. I inspected the subcutaneous tissues here and saw no
active bleeding. My hand was able to easily connect from 1 side to the other as this was just an open space that had been created by this large hematoma. I was able to after packing for some time and observing, there was no active major
bleeding. Just still diffuse minor oozing. At this point, I had irrigated everything out and the cavity look clean. Packing was then removed. Sponge counts were all correct. I then placed 2 round large drains (1 in the medial aspect and one on
the lateral leg) brought out through separate stab incisions and secured to the skin with nylon sutures. These were positioned into the large subcutaneous space created by the hematoma cavity. Next the skin on either side was closed using
vertical mattress nylon sutures. I could not really get the deeper layers together as the subcutaneous tissue had been sort of torn apart by the hematoma. Adaptic and gauze dressings were placed. Curlex wraps and Benton bandages were placed. GEORGE
drains were placed to bulb suction. Patient was extubated and taken to the recovery room in stable condition.
[2023-08-08 13:03] LABS: Glucose - Point of Care 220 mg/dl (70-99)
--- NOTE | 2023-08-08 14:10 | PTCARENOTE ---
Rec'd Pt post-op, drowsy but awakens to voice, answers questions appropriately, denies pain. R lower leg bandage D+I, 2 GEORGE drains intact and draining serosang drainage. + DP pulse on R with doppler. R foot swollen. elevated on pillow.
[2023-08-08 17:24] LABS: Glucose - Point of Care 277 mg/dl (70-99)
[2023-08-08] MEDS: NOVOLOG FLEXPEN-LOW RESISTANCE 3 UNITS SC (17:35)
--- NOTE | 2023-08-08 18:41 | PTCARENOTE ---
Transfused 2 units FFP, pt josseline well, VSS
[2023-08-08 19:49] LABS: Hematocrit 22.6 % (37.0-47.0); Hemoglobin 7.6 g/dL (12.0-16.0)
[2023-08-08 20:01] LABS: Blood Urea Nitrogen 25 mg/dl (7-17); Carbon Dioxide 26 mmol/L (22-30); Chloride 95 mmol/L (98-107); Estimated Creatinine Clearance 47 ml/min; Glucose 278 mg/dl (70-99); Potassium 3.9 mmol/L (3.5-5.1); Sodium 131 mmol/L (135-145)
--- NOTE | 2023-08-08 21:01 | CON.ONC ---
Impression
Impression
Hemorrhagic ecchymoses likely due to Lovenox
Plan
Plan
Given her desires not to pursue correction injection therapy discussed conversion to IV heparin w/o bolus with eventual conversion to warfarin. She was amenable to same.
Patient History
History of Present Illness
Unfortunate 68yo WF s/p bioprosthetic MVR, tricuspid valve repair, biatrial MAZE w/ cryoablation, L atrial appendage exclusion on 06/30/2023 subsequently transferred to rehab when stable postop on Pradaxa therapy she had taken for years as
anticoagulant for chronic afib transferred to [facility] for workup of suspect endocarditis during which time she was diagnosed with bilateral femoral DVT 07/28/2023 as failure of Pradaxa then initiated on standard Lovenox A/C dosing
subsequently transferred back to 08/02/2023 for further w/u-- we are consulted to address marked subcutaneous hematomas/ecchymoses.
Past-Medical/Surgical History
Persistent Atrial Fibrillation
Hypertension
DM-II
NSVT
Obesity
Chronic HFmrEF
History of DVT / PE (2012 and present)
Endometrial Cancer s/p Surgery and XRT
PPM (2016)
CHELITA / BSO
T&A
D&C
Carpal Tunnel Release
Cataracts
Patient Medication
�Medication �Instructions �Recorded �Confirmed �Last Taken �Type
ascorbic acid (vitamin C) 500 mg 500 mg PO DAILY Supplement 06/23/23 08/02/23 08/01/23 08:00 History
tablet (Vitamin C)
cyanocobalamin (vitamin B-12) 1,000 mcg PO DAILY Supplement 06/23/23 08/02/23 08/01/23 08:00 History
1,000 mcg tablet
loratadine 10 mg tablet 10 mg PO DAILY Allergies 06/23/23 08/02/23 08/01/23 08:00 History
melatonin 3 mg tablet 3 mg PO HS PRN sleep 06/23/23 08/02/23 07/29/23 23:00 History
multivitamin 1 tab PO DAILY Supplement 06/23/23 08/02/23 08/01/23 08:00 History
pantoprazole 40 mg tablet,delayed 40 mg PO DAILY Gastrointestinal 06/23/23 08/02/23 08/01/23 08:00 History
release Issue
potassium chloride 20 mEq oral 20 meq PO BID Electrolyte Repletion 06/23/23 08/02/23 08/01/23 08:00 History
packet
amlodipine 5 mg tablet 7.5 mg (1.5 x 5 mg) PO DAILY 07/08/23 08/02/23 08/01/23 08:00 Rx
hypertension #30 tabs
aspirin 81 mg chewable tablet 81 mg PO DAILY #0 tabs 07/08/23 08/02/23 08/01/23 08:00 Rx
(Children's Aspirin)
ferrous sulfate 325 mg (65 mg 325 mg PO DAILY anemia #30 tabs 07/08/23 08/02/23 08/01/23 08:00 Rx
iron) tablet
amiodarone 200 mg tablet 200 mg PO DAILY Arrhythmia #14 tabs 07/09/23 08/02/23 08/01/23 08:00 Rx
acetaminophen 325 mg capsule 650 mg PO Q6H PRN pain / fever 08/01/23 08/01/23 Unknown History
carvedilol 25 mg tablet 25 mg PO BID Heart 08/01/23 08/02/23 08/01/23 08:00 History
Disease/Condition
enoxaparin 120 mg/0.8 mL 110 mg SC Q12H Blood Clot 08/01/23 08/02/23 08/01/23 12:00 History
subcutaneous syringe Prevention/Tx
furosemide 10 mg/mL injection 80 mg IV BID Fluid 08/01/23 08/02/23 08/01/23 08:00 History
solution Retention/Swelling
piperacillin-tazobactam 4.5 gram 4.5 g IV Q8H Infection 06/08/02/23 08/01/23 17:00 History
intravenous solution
polyethylene glycol 3350 17 gram 17 g PO DAILY Constipation 08/01/23 08/02/23 08/01/23 08:00 History
oral powder packet (Miralax)
repaglinide 1 mg tablet 1 mg PO TID Diabetes 08/01/23 08/01/23 Unknown History
vancomycin 1.5 gram intravenous 1.5 g IV Q24H Infection 08/01/23 08/02/23 08/01/23 13:00 History
solution
Active Medications
Generic Name Dose Route Start Last Admin
Trade Name Freq PRN Reason Stop Dose Admin
Acetaminophen 650 mg 08/07/23 05:15 08/08/23 17:29
Acetaminophen 325 Mg Tablet PO 09/04/23 05:14 650 mg
Q6HPRN PRN Administration
mild pain/ fever>100.5F
Amiodarone HCl 200 mg 08/08/23 08:00 08/08/23 07:55
Amiodarone 200 Mg Tablet PO 09/05/23 07:59 200 mg
DAILY BHAKTI Administration
Amlodipine Besylate 7.5 mg 08/02/23 08:00 08/08/23 07:54
Amlodipine 5 Mg Tablet PO 08/30/23 07:59 7.5 mg
DAILY BHAKTI Administration
Aspirin 650 mg 08/02/23 00:25
Aspirin 325 Mg Tablet PO 08/30/23 00:24
Q6H PRN
pain / fever > 101
Aspirin 81 mg 08/02/23 08:00 08/08/23 07:53
Aspirin 81 Mg Chewable Tablet PO 08/30/23 07:59 81 mg
DAILY BHAKTI Administration
Carvedilol 6.25 mg 08/04/23 10:41 08/08/23 07:53
Carvedilol 3.125 Mg Tablet PO 08/30/23 08:29 6.25 mg
BID BHAKTI Administration
Cyclosporine 1 drops 08/02/23 09:00 08/08/23 07:56
Cyclosporine 0.05% (Ophthalmic Emulsion) 10 Drop Droperette OPHTH 08/30/23 08:59 1 drops
BID BHAKTI Administration
Dextrose 12.5 grams 08/02/23 00:05
Dextrose 50% (0.5 Grams/Ml) 50 Ml Syringe IV 08/30/23 00:04
[id number] PRN
hypoglycemia
Protocol
Ferrous Sulfate 325 mg 08/02/23 08:00 08/08/23 07:55
Ferrous Sulfate 325 Mg Tablet PO 08/30/23 07:59 325 mg
DAILY BHAKTI Administration
Furosemide 80 mg 08/07/23 20:00 08/08/23 07:53
Furosemide 80 Mg Tablet PO 09/04/23 19:59 80 mg
BID BHAKTI Administration
Glucagon 1 mg 08/02/23 00:05
Glucagon 1 Mg Vial IM 08/30/23 00:04
PRN PRN
hypoglycemia
Protocol
Hydromorphone HCl 0.5 mg 08/08/23 10:38
Hydromorphone 0.5 Mg/0.5 Ml Syringe IV 08/09/23 10:38
PACU-Q5MPRN PRN
severe pain
Hydromorphone HCl 0.25 mg 08/08/23 10:38
Hydromorphone 0.25 Mg/0.5 Ml Syringe IV 08/09/23 10:38
PACU-Q5MPRN PRN
moderate pain
Vancomycin HCl 1 each/ Device 0 mls @ 0 mls/hr 08/03/23 10:00
IV
PER PROTOCOL BHAKTI
Protocol
As Directed
Parenteral Electrolytes 1,000 mls @ 100 mls/hr 08/08/23 10:45
Normosol-R IV 08/09/23 10:38
PER PROTOCOL BHAKTI
Insulin Aspart 0 units 08/02/23 07:30 08/08/23 17:35
Insulin Aspart Low Resistance 300 Units/3 Ml Pen.Injctr SC 08/30/23 07:29 3 units
AC BHAKTI Administration
Protocol
Melatonin 3 mg 08/02/23 00:08 08/07/23 22:35
Melatonin 3 Mg Tablet PO 08/30/23 00:07 3 mg
HS PRN Administration
sleep
Meperidine HCl 12.5 mg 08/08/23 10:38
Meperidine 25 Mg/Ml Injection IV 08/09/23 10:38
PACU-Q5MPRN PRN
shivers
Mineral Oil/Petrolatum/Phenylephrin 0 applic 08/02/23 01:39 08/06/23 08:15
Preparation H Oint (Phenyleph/Mineral Oil/Petrolat) RECTAL 08/30/23 01:38 1 applic
Q6HPRN PRN Administration
hemorrhoid discomfort/itching
Ondansetron HCl 4 mg 08/08/23 10:38
Ondansetron 4 Mg/2 Ml Vial IV 08/09/23 10:38
PACU-ONCEPRN PRN
nausea/vomiting
Pantoprazole Sodium 40 mg 08/02/23 08:00 08/08/23 07:52
Pantoprazole 40 Mg Delayed Release Tablet PO 08/30/23 07:59 40 mg
DAILY BHAKTI Administration
Polyethylene Glycol 17 grams 08/02/23 08:00 08/08/23 07:55
Polyethylene Glycol Powder 17 Grams Packet PO 08/30/23 07:59 Not Given
DAILY BHAKTI
Potassium Chloride 20 meq 08/02/23 08:00 08/08/23 07:53
Potassium Chloride 20 Meq Powder Packet PO 08/30/23 07:59 20 meq
BID BHAKTI Administration
Prochlorperazine Edisylate 5 mg 08/08/23 10:38
Prochlorperazine 10 Mg/2 Ml Vial IV 08/09/23 10:38
PACU-ONCEPRN PRN
nausea/vomiting
Psyllium Hydrophilic Mucilloid 1 packet 08/02/23 09:00 08/08/23 07:56
Psyllium Packet PO 08/30/23 08:59 1 packet
DAILY BHAKTI Administration
Sodium Chloride 0 flush 08/02/23 01:00
Sodium Chloride 0.9% (Flush) Syringe IV 08/30/23 00:59
PER PROTOCOL BHAKTI
Sodium Chloride 1 sprays 08/02/23 08:03
Sodium Chloride 0.65% Nasal Davison 45 Ml Bottle NASAL 08/30/23 08:02
QIDPRN PRN
nasal congestion
Review of Systems
-
History Source: Patient and Records
All Other Systems: Reviewed and Negative (other than as per HPI)
Physical Exam
-
General: Appears in Distress and Appears Chronically Ill
HEENT: Moist Mucous Membranes
Cardiology: Irregular Rate/Rhythm
Pulmonary: Clear
GI: Soft and Distended
Musculoskeletal: No Clubbing and No Cyanosis
Neurology: Non Focal
Skin: Other (large palpable hemorhagic areas of forearms and w/o chest wall or large areas of the legs)
Psych: Calm
Labs
Lab Results
WBC 8.1 10^3/uL (4.8-10.8) 08/08/23 03:41
RBC 2.56 10^6/uL (4.20-5.40) L 08/08/23 03:41
Hgb 7.6 g/dL (12.0-16.0) L 08/08/23 19:36
Hct 22.6 % (37.0-47.0) L 08/08/23 19:36
MCV 95.7 fL (81.0-99.0) 08/08/23 03:41
MCH 30.5 pg (27.0-31.0) 08/08/23 03:41
MCHC 31.8 g/dL (33.0-37.0) L 08/08/23 03:41
RDW 15.8 % (11.5-14.5) H 08/08/23 03:41
Plt Count 198 10^3/uL (130-400) 08/08/23 03:41
MPV 10.1 fL (7.4-10.4) 08/08/23 03:41
Abs Immat Gran (auto) 0.1 10^3/uL (0-0.05) H 08/08/23 03:41
Absolute Neuts (auto) 5.7 10^3/uL (1.4-6.5) 08/08/23 03:41
Absolute Lymphs (auto) 1.3 10^3/uL (1.2-3.4) 08/08/23 03:41
Absolute Monos (auto) 0.9 10^3/uL (0.1-0.6) H 08/08/23 03:41
Absolute Eos (auto) 0.2 10^3/uL (0-0.7) 08/08/23 03:41
Absolute Basos (auto) 0.0 10^3/uL (0-0.2) 08/08/23 03:41
Immature Gran % 0.6 % (0-0.5) H 08/08/23 03:41
Neutrophils % 69.8 % (42.2-75.2) 08/08/23 03:41
Lymphocytes % 15.6 % (20.5-51.1) L 08/08/23 03:41
Monocytes % 11.5 % (1.7-9.3) H 08/08/23 03:41
Eosinophils % 2.0 % (0-6) 08/08/23 03:41
Basophils % 0.5 % (0-2) 08/08/23 03:41
Creatinine 1.2 mg/dL (0.6-1.0) H 08/08/23 19:36
Vital Signs
Vital Signs
Temp Pulse Resp BP Pulse Ox
98.7 F 91 16 114/68 93
08/08/23 20:15 08/08/23 20:15 08/08/23 20:15 08/08/23 20:15 08/08/23 20:15
[2023-08-08 21:22] LABS: Glucose - Point of Care 320 mg/dl (70-99)
--- NOTE | 2023-08-08 22:00 | PTCARENOTE ---
pt aao.afebrile. midline being inserted by iv team.right leg and foot with +3 edema. pulse present with doppler.dressing dry and intact. 2 bonita drains intact draining serosanguinous drainage. pt with multiple bruises on arms and legs. pt afib on
monitor. support provided to pt frequently. lab work sent to lab.
--- NOTE | 2023-08-08 23:30 | PTCARENOTE ---
repeat hemaglobin=7.6. dr contreras made aware. house provider aware. 1 unit packed blood cells ordered and started.
[2023-08-09] VITALS (18 sets, daily range): BP systolic 108–143; BP diastolic 46–79; PULSE 93; O2SAT 98; BMI 44.3
[2023-08-09] MEDS: TYLENOL 650 MG PO ×3 (04:39→17:53)
--- NOTE | 2023-08-09 05:00 | PTCARENOTE ---
complete bed bath given. pt assisted to turn and bed changed. pt able to move right leg to assist with turning. tylenol given for pain.
[2023-08-09 05:45] LABS: Vancomycin Random 12.5 ug/ml
[2023-08-09 05:51] LABS: Blood Urea Nitrogen 24 mg/dl (7-17); Calcium 8.5 mg/dl (8.4-10.2); Carbon Dioxide 27 mmol/L (22-30); Chloride 96 mmol/L (98-107); Estimated Creatinine Clearance 51 ml/min; Glucose 196 mg/dl (70-99); Magnesium 2.1 mg/dl (1.6-2.3); Phosphorus 5.1 mg/dl (2.5-4.5); Potassium 3.9 mmol/L (3.5-5.1); Sodium 133 mmol/L (135-145); eGFR 54.06
[2023-08-09 06:11] LABS: Hematocrit 24.7 % (37.0-47.0); Hemoglobin 8.8 g/dL (12.0-16.0); Mean Corp Hgb Conc. 35.6 g/dL (33.0-37.0); Mean Corpuscular Hgb 30.7 pg (27.0-31.0); Mean Corpuscular Volume 86.1 fL (81.0-99.0); Mean Platelet Volume 10.6 fL (7.4-10.4); Platelet Count 123 10^3/uL (130-400); Red Blood Cell Count 2.87 10^6/uL (4.20-5.40); Red Cell Dist. Width 15.4 % (11.5-14.5); White Blood Cell Count 16.8 10^3/uL (4.8-10.8)
[2023-08-09 07:03] LABS: Glucose - Point of Care 232 mg/dl (70-99)
--- NOTE | 2023-08-09 07:30 | W.PN.HOSP.TC ---
Addendum entered and electronically signed by Marilin Benitez MD 08/09/23 19:17:
Patient seen and examined independently--agree with plan set forth by Dr. Arredondo
GENERAL: well developed, well nourished, female in some discomfort
HEENT: NC/AT--off O2, on room air
HEART: irreg irreg--no murmur noted
LUNGS : clear to auscultation bilaterally--better breath sounds at bases bilaterally
ABDOM: soft, nontender, nondistended, + bowel sounds--bruises on abdomen from lovenox shots
EXT: no cyanosis, clubbing--s/p OR, right leg softer with drains in place
NEUROLOGIC: grossly intact
Acute hematoma of RLE causing acute blood loss anemia--Spontaneous large, tense hematoma of right calf, most likely caused by Lovenox anticoagulation--Stopped Lovenox-- vascular surgery took pt to OR for evacuation of hematoma--3 units of FFP given
to reverse coagulopathy and 3 pRBC given--apprec heme--Follow H&H every 6 hours and transfuse if HGB < 8--Midline for vascular access, IV team appreciated--HOLD ANTICOAGULATION
Acute Hypoxemic Respiratory Insufficiency-- resolved--likely due to CHF exac from presumed endocarditis (subsequently ruled out)--KARL 08/04 without evidence of vegetations--now on room air--s/p bilateral thoracentesis (right 500mls, left 400mls),
transudative fluid- apprec IR for thoracentesis--blood culture positive for coag neg staph, otherwise neg-- will continue with antibiotics as per ID, waiting for final identification of bacteria--Procalcitonin noted to be < 0.5 on labs at [facility], CPAP
therapy, etc--apprec pulm/cards input--diurese as able
Acute on Chronic diastolic (preserved EF) - Daily Weights I/O Lasix transitioned to oral - Cardiology eval appreciated--apprec IR consult for thoracentesis
Staph Bacteremia-- Endocarditis ruled out by KARL, no vegetations on the valves-- ID eval appreciated cont empiric Vanco, discontinued empiric zosyn low suspicion PNA on CXR- Echo done at [facility] showed progressed AR. From mild (06/29) to mild - moderate
(07/02) to moderate - severe (07/27) - Cardiology Cardiothoracic Surgery consults appreciated-- identification of coag neg staph is Staph epi (same bacteria as previously noted at outside hospital)
Persistent Atrial Fibrillation with QT prolongation - s/p MAZE and HARVINDER exclusion on 06/29 - Continue amiodarone, carvedilol- QTc prolonged 505, minimize/avoid use of QT prolonging agents as possible--
Essential Hypertension- Relatively well controlled at this time - cont amlodipine, lasix, coreg with holding parameters
DM-II - Stable. Hold oral agents for now - SSI coverage as needed.
Bilateral LE DVT/History of DVT / PE - Patient noted on US to have bilateral femoral DVTs at [facility] (07/27) - Changed from Pradaxa to Lovenox, patient had failure of Pradaxa and was placed on therapeutic Lovenox by [facility]--appreciate
hematology, plan would be to convert to Coumadin when safe to resume such per vascular surgery, likely will need heparin bridge
Anemia--likely chronic disease--consider checking iron studies, B12, folate- nursing reports blood found in patient's groin, between legs--ford cath site without bleeding, rectal without bleeding--? vaginal, monitor for now, none further--repeat
H&H appears stable
LIZBETH on CPAP continued
Morbid Obesity due to excess calories - Affects all aspects of care - Encourage healthy diet and increased activity when able with goal of weight reduction.
Ford - Patient arrives at with Ford catheter in place. This was placed at [facility], presumably for I/O determination vs urinary retention - trial of void successful
PT/OT appreciated SNF rehab likely
DVT Prophylaxis: Therapeutic Lovenox on hold
Code Status: Full
Original Note:
Today's Communication/Plan
-
H&H every 6 hours
Transfuse as needed
Eventual anticoagulation with warfarin
Continue Lasix
Continue antibiotics
Assessment / Plan
Assessment / Plan
A/P: Patient is a 67y F with PMH significant for A-Fib, Obesity, HTN, HLD, DM-II, HFmrEF, valvular heart dz, cardiothoracic surgery, DVT/PE, Endometrial Ca s/p resection/XRT, transferred from [facility] to for evaluation of CHF and possible
endocarditis.
Acute Hypoxemic Respiratory Insufficiency
- Improved, suspect CHF exacerbation, supplemental O2 weaned off, currently on room air SaO2 94%.
- Likely due to acute decompensated HF/HFmrEF vs pneumonia.
- Previously suspected to have endocarditis
- Patient tolerated KARL with additional TTE today, no evidence of endocarditis or mitral regurgitation but mild tricuspid regurgitation and mild/moderate pulmonic regurgitation.
- CXR 08/04/23 with b/l Pleural effusion.
- S/p right thoracentesis 08/05/2023 with removal of 500 cc serosanguineous pleural fluid, subsequent CXR negative for pneumothorax.
- S/p left thoracentesis 08/06/2023 with removal of 400 cc serosanguineous pleural fluid, subsequent CXR negative for pneumothorax.
- Procalcitonin noted to be < 0.5 on labs at [facility].
- Continue supportive care with O2, PAP therapy, etc
- Cardiology / Cardiothoracic Surgery consults appreciated
- Pain control.
Acute hematoma of RLE
- Spontaneous large, tense hematoma of right calf, most likely caused by Lovenox anticoagulation.
- Stop Lovenox.
- S/p urgent washout/evacuation hematoma (Dr. Chowdhury) POD #1.
- S/p FFP 3 unit for Lovenox reversal.
- Repeat washout if continued drainage or bleeding per vascular.
- Vascular surgery appreciated.
- Check PT/PTT, INR and Fibrinogen, H&H,type and cross.
- OOB to chair, early ambulation as tolerated.
- Follow H&H Q6H and transfuse as needed.
- Midline for vascular access, IV team appreciated.
- Eventual conversion to warfarin per hematology.
- Hematology evaluation and recs appreciated.
- PT/OT
Anemia
- Presentation with chronic anemia, most likely anemia of chronic disease.
- Hb improved to 8.8 this a.m, acutely dropped to 7.4.
- s/p 5U PRBC.
- Follow H&H Q6H.
- Hold iron tablets for now.
- Nursing reported finding blood in patient's groin, further evaluation unrevealing of source (Ford site, rectum without bleeding)�vaginal monitoring.
- Heamatology following, recs appreciated
- IV team appreciated.
Staph Bacteremia
- Coagulase-negative staph identified from culture 08/01,
- Continue empiric vancomycin per ID.
- Patient afebrile, vital stable.
- KARL/TTE negative for endocarditis
- ID recs appreciated
Acute on Chronic HFmrEF
- Daily Weights I/O, weight trending down.
- CR 1.1, monitor while on Lasix.
- IV Lasix 80mg BID changed to p.o.
- Coreg increased from 3.125-6.25
- Sternal precautions lifted, up and walking around as tolerated.
- Cardiology eval appreciated
Constipation
-Resolved
-Milk and molasses PRN
Metabolic alkalosis
-Most likely due to dehydration given BUN/creatinine level.
-Hyponatremic hypokalemia.
-IV fluid
-Replete electrolytes as needed
Persistent Atrial Fibrillation
- s/p MAZE and HARVINDER exclusion on 06/29.
- Amiodarone previously increased by cardiology to 200 mg BID due to persistent A-fib to restore sinus rhythm, QTc prolonged to 516 MS, amiodarone currently reduced back to 200 mg daily. Patient unwilling to inject Lovenox outpatient, hematology to
determine anticoagulation plan for outpatient.
- Outpatient cardioversion planned, however anticoagulation has to be determined first per cardiology.
- Continue labetalol, carvedilol and amiodarone.
- Minimize/avoid use of QT prolonging agents as possible.
- Follow-up outpatient with primary manager semiconductor Dr. Hiren Peters of [facility]
Benign Hypertension
- Relatively stable on Norvasc 7.5 and Coreg 6.25.
- Monitor while on Lasix with holding parameters.
DM-II
- Stable. Hold oral agents for now.
- SSI coverage as needed.
Bilateral LE DVT
History of DVT / PE
- Patient noted on US to have bilateral femoral DVTs at [facility] (07/27).
- Changed from Pradaxa to Lovenox per Hematology recommendations.
- Cont Lovenox 110mg BID
- Change to IV heparin for bridging if any intervention / surgery is planned.
LIZBETH on CPAP continued
Morbid Obesity due to excess calories
- Affects all aspects of care.
- Encourage healthy diet and increased activity when able with goal of weight reduction.
Ford
- Patient arrives at with Ford catheter in place. This was placed at [facility], presumably for I/O determination.
- Maintain Ford for now.
- Eventual trial of void prior to discharge
PT/OT appreciated SNF rehab
DVT Prophylaxis: Hold Lovenox
Code Status: Full
Anticipated Discharge: > 48 hours
Subjective/Interval History
-
Date of Service: August 09, 2023
Objective Data
-
Labs:
Laboratory Results
08/08/23 08/09/23 08/09/23
19:36 02:45 05:16
WBC 16.8 H
Hgb 7.6 L Cancelled 8.8 L
Hct 22.6 L Cancelled 24.7 L
Plt Count 123 L D
Sodium 131 L 133 L
Potassium 3.9 3.9
Chloride 95 L 96 L
Carbon Dioxide 26 27
BUN 25 H 24 H
Creatinine 1.2 H 1.1 H
Glucose 278 H 196 H
Calcium 8.0 L 8.5
08/09/23
08:45
WBC
Hgb Pending
Hct Pending
Plt Count
Sodium
Potassium
Chloride
Carbon Dioxide
BUN
Creatinine
Glucose
Calcium
Vital Signs:
Tmax 24 HRS
08/08/23
23:35
Temp 98.6 F
Vital Signs
Temp Pulse Resp BP Pulse Ox
99 F 90 20 129/70 97
08/09/23 06:56 08/09/23 02:23 08/09/23 06:56 08/09/23 02:23 08/09/23 06:56
I&O
08/08/23 08/09/23 08/10/23
06:59 06:59 06:59
Intake Total 240 / 240 2762 / 2762
Output Total 750 / 750 562 / 562
Balance -510 / -510 2200 / 2200
Review of Systems
-
History Source: Patient
All other systems: Not reviewed unless documented
Constitutional: Reports No Symptoms; Denies Fever
EENT: Reports No Symptoms Reported
Respiratory: Reports No Symptoms and Other; Denies Trouble Breathing or Wheezing
Cardiac: Reports No Symptoms; Denies Chest Pain or Palpitations
Abdomen/GI: Reports No Symptoms; Denies Abdominal Pain or Nausea
Genitourinary: Reports No Symptoms
Musculoskeletal: Reports No Symptoms
Skin: Reports Sores (Left lower extremity) and Other (Multiple bruises, right leg draining hematoma)
Neuro: Denies Headache
Endocrine: Reports No Symptoms
Hematologic / Lymphatic: Reports Bleeding, Bruising and Other (Right leg hematoma)
Physical Exam
-
General: Well Nourished, No Apparent Distress, Comfortable and Pain (Right leg pain)
HEENT: Moist Mucous Membranes
Respiratory: Clear to Auscultation and Non Labored Respirations; Negative Wheezes, Rales or Rhonchi
Cardiac: Negative Murmur or Rub
GI: Soft, Nontender, Nondistended and Normal Bowel Sounds
Musculoskeletal: No Clubbing and Other (Multiple bruises)
Skin: Warm and Other (Multiple bruises, right leg draining hematoma)
Neuro: Awake, Alert, Oriented and AO x 3
Psych: Calm and Intact Judgement/Insight
Data Reviewed
-
Diagnostic Radiology: Image personally visualized and interpreted, Report Reviewed by me and Discussed with Physician
CT Scan: Report Reviewed by me and Discussed with Physician
Labs: Labs Reviewed by me and Discussed with Physician
Old Records: Reviewed
--- NOTE | 2023-08-09 08:07 | PHA.VAN.FU ---
Vancomycin Assessment / Plan
- Assessment
Renal Function: Stable
WBC's are: Trending Up
In the past 24 hrs, patient has been: Afebrile
- Assessment - Therapeutic Drug Monitoring
Random Level: R = 12.5 ~ 41hrs post Vanc 1500mg
- Dosing Plan
Adjust Regimen to: Vanc 1500mg IV Q48H
- Monitoring Plan
Level(s) appropriate: Recheck trough at minimum of weekly intervals, Repeat sooner for changes in renal function or clinical status
- Follow Up
Pharmacy will continue to follow.
Vancomycin Follow UP
- -
Patient Age: 67
Patient Sex: Female
Vancomycin Day #: 8
Indication: Bacteremia
Requesting Provider: Dr. Lopez / Prachi
Pertinent Antimicrobial Allergies:
oxytetracycline - hives
Height / Weight:
Height 5 ft
Actual Weight 102.965 kg
IBW in k.5
Adjusted BW in k.2
Pertinent Past Medical History: BMI ~45, DM
- Vital Signs / Lab Results
Temp Pulse Resp BP Pulse Ox
99 F 90 20 129/70 97
08/09/23 06:56 08/09/23 02:23 08/09/23 06:56 08/09/23 02:23 08/09/23 06:56
Lab Results - Hematology
08/07/23 08/08/23 08/09/23
03:32 03:41 05:16
WBC 4.5 L 8.1 16.8 H
Lab Results - Chemistry
08/07/23 08/08/23 08/08/23
03:32 03:41 19:36
BUN 23 H 25 H 25 H
Creatinine 1.2 H 1.3 H 1.2 H
Estimated Creat Clear 47 43 47
08/09/23
05:16
BUN 24 H
Creatinine 1.1 H
Estimated Creat Clear 51
Microbiology Results
08/05/23 05:13 Blood Culture - Preliminary
Blood/Venous No Growth in 4 days- Final report to follow
08/04/23 04:47 Blood Culture - Final
Blood/Venous No Growth - Final Report
08/02/23 01:17 Blood Culture - Final
Blood/Venous Staphylococcus epidermidis
Gram Stain - Final
08/05/23 17:32 Body Fluid Culture - Final
Pleural Fluid No Growth After 72 Hours
Gram Stain - Final
08/03/23 05:22 Blood Culture - Final
Blood/Venous No Growth - Final Report
Therapeutic Drug Monitoring
Vancomycin Peak Cancelled 08/07/23 15:19
Random Vancomycin 12.5 ug/ml 08/09/23 05:16
[2023-08-09] MEDS: NOVOLOG FLEXPEN-LOW RESISTANCE 2 UNITS SC (09:37)
[2023-08-09] MEDS: COREG 6.25 MG PO ×2 (09:39→21:12)
[2023-08-09] MEDS: PROTONIX 40 MG PO (09:40)
[2023-08-09] MEDS: KLOR-CON 20 MEQ PO ×2 (09:40→21:11)
[2023-08-09] MEDS: LASIX 80 MG PO ×2 (09:40→21:12)
[2023-08-09] MEDS: METAMUCIL, KONSYL 1 PACKET PO (09:41)
[2023-08-09] MEDS: NORVASC 7.5 MG PO (09:41)
[2023-08-09] MEDS: PACERONE 200 MG PO (09:43)
[2023-08-09] MEDS: MIRALAX PO (09:44)
[2023-08-09] MEDS: RESTASIS 0.05% OPHTHALMIC EMULSION 1 DROPS OPHTH ×2 (09:45→21:11)
[2023-08-09] MEDS: LOW STRENGTH ASPIRIN 81 MG PO (09:48)
[2023-08-09] MEDS: VANCOCIN 300 MG IV (09:55)
[2023-08-09] MEDS: VANCOCIN 300 ML IV (09:55)
--- NOTE | 2023-08-09 10:12 | W.PN.ID1 ---
Date of Service
Date of Service: August 09, 2023
Today's Communication
Continue vancomycin for the present
- will discuss with EP and patients business agent tomorrow
Single blood culture bottle from 08/01 revealing growth of coag negative staph. Sensi are quite dissimilar from those at OSH by report
Assessment / Plan
Coag negative staph bacteremia in the context of recent valve replacement
Progressive shortness of breath
- improved
Suspected exacerbation of CHF
HTN
A-fib
DM
Obesity
CHF
Hx DVT
Hx endometrial CA (s/p SX and XRT)
Recommendations:
Continue vancomycin for the present
- will discuss with EP and patients business agent tomorrow
Single blood culture bottle from 08/01 revealing growth of coag negative staph. Sensi are quite dissimilar from those at OSH by report
KARL unrevealing.
Monitor white count and temperature curve.
����������������������������������������������������������
Chief Complaint
-: Bacteremia
Subjective / Review of Systems
afebrile
bp stable
mild tachycardia
post op leukocytosis is noted
cr is stable
repeat blood cultures no growth to date
Vital Signs / Physical Exam
Vital Signs
Vital Signs
Temp Pulse Resp BP Pulse Ox
99 F 102 20 135/69 97
08/09/23 06:56 08/09/23 08:15 08/09/23 06:56 08/09/23 09:41 08/09/23 09:30
Physical Exam
Constitutional: No Acute Distress
Cardiovascular: Regular Rate and S1/S2; Negative Murmur or Rub
Pulmonary: Clear and Symmetric; Negative Wheezes or Rales
Gastrointestinal: Soft, Non Tender, Non Distended and Normal Bowel Sounds
Skin: Warm and Dry; Negative Rash or Jaundice
Wound: Other (pacemaker and sternal surgical sites clean, no eythema, warmth, tenderness, dehiscence or drainage)
Objective Data
Lab Data
Lab Results
08/09/23 05:16
PT 15.2 Sec (11.4-14.6) H 08/08/23 09:50
INR 1.22 08/08/23 09:50
APTT 48.4 Sec (23.4-35.0) H 08/08/23 09:50
Estimated Creat Clear 51 ml/min 08/09/23 05:16
Total Bilirubin 0.7 mg/dl (0.2-1.3) 08/02/23 05:50
AST 20 U/L (14-36) 08/02/23 05:50
ALT 12 U/L (0-35) 08/02/23 05:50
Alkaline Phosphatase 68 U/L (38-126) 08/02/23 05:50
Most recent labs reviewed.
Micro Results:
08/05/23 05:13 Blood Culture - Preliminary
Blood/Venous No Growth in 4 days- Final report to follow
08/04/23 04:47 Blood Culture - Final
Blood/Venous No Growth - Final Report
08/02/23 01:17 Blood Culture - Final
Blood/Venous Staphylococcus epidermidis
Gram Stain - Final
08/05/23 17:32 Body Fluid Culture - Final
Pleural Fluid No Growth After 72 Hours
Gram Stain - Final
08/03/23 05:22 Blood Culture - Final
Blood/Venous No Growth - Final Report
08/02/23 01:23 Blood Culture - Final
Blood/Venous No Growth - Final Report
--- NOTE | 2023-08-09 11:30 | W.PN.VS ---
Today's Communication / Plan
-
See plan below for today 08/09/2023.
Assessment/Plan
-
Postoperative day #1.
� Continue compression dressing.
� Okay to get out of bed.
� As long as okay with medical/cardiac teams would continue to hold anticoagulation for now.
� Repeat H&H later today.
� I did reiterate concerns over wound healing issues and complications resultant from the significant space created by the hematoma.
� I did also discussed with patient potential need for repeat washout if continued drainage or bleeding is noted.
-
Total Time Spent with Patient (in minutes): 20
Subjective Data
-
Date of Service: August 09, 2023
Seen and evaluated. Patient notes no pain in her right leg at rest. She is not actually having any pain like she had prior to surgery. She does note it is just heavy and difficult to move. Per nursing dressing is not changed overnight, no
saturation noted. Patient did receive a total of 3 units of packed red blood cells (2 IntraOp/perioperatively, 1 additionally later yesterday). In addition received 2 units of FFP.
Objective Data
-
Vital Signs
Temp Pulse Resp BP Pulse Ox
99 F 102 20 135/69 97
08/09/23 06:56 08/09/23 08:15 08/09/23 06:56 08/09/23 09:41 08/09/23 09:30
Intake and Output
08/08/23 08/09/23 08/10/23
06:59 06:59 06:59
Intake Total 240 / 240 2762 / 2762 150 / 150
Output Total 750 / 750 562 / 562
Balance -510 / -510 2200 / 2200 150 / 150
Intake:
Oral fluids 240 / 240 660 / 660 150 / 150
IV fluids (Total) 330 / 330
nss 330 / 330
Blood Products 887 / 887
Fresh frozen plasma 637 / 637
Packed red blood cells 250 / 250
Blood Product Amount Infused ( 885 / 885
mL)
Fresh Frozen Plasma 24 Hours 333 / 333
Unit [id number]
Fresh Frozen Plasma 24 Hours 302 / 302
Unit [id number]
Packed Rbc Leukoreduced Unit 250 / 250
[id number]
Output:
Drain Output (Total) 112 / 112
Right Lower Leg Neri-Mcguire A 32 / 32
Right Lower Leg Neri-Mcguire B 80 / 80
Urine, Voided 750 / 750 450 / 450
Other:
Number of approximated SMALL 1
amounts of urine
How many times incontinent 1
SMALL amount urine
How many times incontinent 1 1
MODERATE amount urine
How many times incontinent 2
SATURATED amount urine
Lab Results
08/09/23 05:16
Calcium 8.5 mg/dl (8.4-10.2) 08/09/23 05:16
Phosphorus 5.1 mg/dl (2.5-4.5) H 08/09/23 05:16
Magnesium 2.1 mg/dl (1.6-2.3) 08/09/23 05:16
Total Bilirubin 0.7 mg/dl (0.2-1.3) 08/02/23 05:50
Direct Bilirubin 0.4 mg/dl (0.0-0.4) 08/02/23 05:50
AST 20 U/L (14-36) 08/02/23 05:50
ALT 12 U/L (0-35) 08/02/23 05:50
Alkaline Phosphatase 68 U/L (38-126) 08/02/23 05:50
Total Protein Cancelled 08/05/23 05:47
Albumin 2.6 g/dl (3.5-5.0) L 08/02/23 05:50
Physical Exam
-
She is awake and alert. She is in no acute distress. Breathing is unlabored. Abdomen is soft. Right calf dressings all removed by me. Calf remains soft. No significant reaccumulation of blood or fluid. She is draining from the incision site
slightly (serosanguineous). JPs with dark old blood versus serosanguineous drainage at times. Not significant drainage yesterday, but today emptied lateral GEORGE (GEORGE - A) that drained 70 cc of serosanguineous at the time. Drain stripped. Incisions
clean dry and intact. She did develop a blister on her foot with some swelling on her foot despite Benton bandaging from the toes upward (Benton bandage appears to have slipped more proximally). Dressings reapplied including Adaptic to the blistered
area. Benton bandage reapplied.
Hemoglobin 8.8 this morning.
[2023-08-09 12:23] LABS: Hemoglobin 7.4 g/dL (12.0-16.0)
[2023-08-09 12:31] LABS: Hematocrit 20.6 % (37.0-47.0)
[2023-08-09 13:09] LABS: Glucose - Point of Care 254 mg/dl (70-99)
[2023-08-09] MEDS: NOVOLOG FLEXPEN-LOW RESISTANCE 3 UNITS SC ×2 (13:19→17:52)
[2023-08-09 17:24] LABS: Glucose - Point of Care 282 mg/dl (70-99)
--- NOTE | 2023-08-09 18:36 | PTCARENOTE ---
Pt resting in bed, able to stand with PT for 2 minutes with great fatigue. Bilateral right lower leg dressing changed by , wounds approximated, drainage around GEORGE insertion sites. 3+ edema on right foot, doppler pedal pulses. GEORGE A drained
80mls total today, GEORGE B drained 10mls total. Hg/Hct 7.4/20.6, pt eventually started transfusion of PRBC's @17:30 due to challenging vascular access and inability to place any other peripheral site, right arm PICC line in place. EWill give IV lasix
after first unit of blood. Pt c/o minimal leg discomfort while she is still in bed. Pt turned to her side with difficulty to help prevent pressure sores. Telemetry shows atrial fib @90-100 with rare PVC.
[2023-08-09] MEDS: FLUSH (NSS) 1 FLUSH IV (21:11)
[2023-08-09] MEDS: LASIX 20 MG IV (21:11)
[2023-08-09 22:15] LABS: Glucose - Point of Care 307 mg/dl (70-99)
[2023-08-10] VITALS (11 sets, daily range): BP systolic 122–150; BP diastolic 68–96; PULSE 88–116; BMI 45.0
[2023-08-10 04:31] LABS: % Basophils 0.2 % (0-2); % Eosinophils 0.2 % (0-6); % Immature Granulocytes 0.7 % (0-0.5); % Lymphocytes 7.8 % (20.5-51.1); % Monocytes 14.2 % (1.7-9.3); % Neutrophils 76.9 % (42.2-75.2); Absolute Immature Granulocytes 0.1 10^3/uL (0-0.05); Absolute Monocytes 1.7 10^3/uL (0.1-0.6); Absolute Neutrophils 9.4 10^3/uL (1.4-6.5); Mean Corp Hgb Conc. 33.8 g/dL (33.0-37.0); Mean Corpuscular Hgb 30.9 pg (27.0-31.0); Mean Corpuscular Volume 91.2 fL (81.0-99.0); Mean Platelet Volume 10.2 fL (7.4-10.4); Nucleated Red Blood Cells % 0.7 %; Platelet Count 146 10^3/uL (130-400); Red Blood Cell Count 2.85 10^6/uL (4.20-5.40); Red Cell Dist. Width 15.6 % (11.5-14.5); White Blood Cell Count 12.2 10^3/uL (4.8-10.8)
[2023-08-10 04:36] LABS: Hemoglobin 8.8 g/dL (12.0-16.0)
[2023-08-10] MEDS: TYLENOL 650 MG PO ×2 (04:37→15:18)
[2023-08-10 04:48] LABS: Blood Urea Nitrogen 24 mg/dl (7-17); Calcium 8.1 mg/dl (8.4-10.2); Carbon Dioxide 33 mmol/L (22-30); Chloride 94 mmol/L (98-107); Estimated Creatinine Clearance 48 ml/min; Glucose 186 mg/dl (70-99); Sodium 134 mmol/L (135-145)
[2023-08-10 04:58] LABS: Potassium 3.1 mmol/L (3.5-5.1)
--- NOTE | 2023-08-10 07:52 | PHA.VAN.FU ---
Vancomycin Assessment / Plan
- Assessment
Renal Function: Stable
WBC's are: Trending Down
In the past 24 hrs, patient has been: Afebrile
- Dosing Plan
Continue: 1500MG q48h
- Monitoring Plan
Level(s) appropriate: Recheck trough at minimum of weekly intervals, Repeat sooner for changes in renal function or clinical status
- Follow Up
Pharmacy will continue to follow.
Vancomycin Follow UP
- -
Patient Age: 67
Patient Sex: Female
Vancomycin Day #: 9
Indication: Bacteremia
Requesting Provider: Dr. Lopez / [facility]
Pertinent Antimicrobial Allergies:
oxytetracycline - hives
Height / Weight:
Height 5 ft
Actual Weight 104.4 kg
IBW in k.5
Adjusted BW in k.2
Pertinent Past Medical History: BMI ~45, DM
- Vital Signs / Lab Results
Temp Pulse Resp BP Pulse Ox
98.4 F 86 20 146/72 94
08/10/23 04:07 08/10/23 04:06 08/10/23 04:07 08/10/23 04:06 08/10/23 04:07
Lab Results - Hematology
08/08/23 08/09/23 08/10/23
03:41 05:16 04:02
WBC 8.1 16.8 H 12.2 H
Lab Results - Chemistry
08/08/23 08/08/23 08/09/23
03:41 19:36 05:16
BUN 25 H 25 H 24 H
Creatinine 1.3 H 1.2 H 1.1 H
Estimated Creat Clear 43 47 51
08/10/23
04:02
BUN 24 H
Creatinine 1.2 H
Estimated Creat Clear 48
Microbiology Results
08/05/23 05:13 Blood Culture - Final
Blood/Venous No Growth - Final Report
08/04/23 04:47 Blood Culture - Final
Blood/Venous No Growth - Final Report
08/02/23 01:17 Blood Culture - Final
Blood/Venous Staphylococcus epidermidis
Gram Stain - Final
08/05/23 17:32 Body Fluid Culture - Final
Pleural Fluid No Growth After 72 Hours
Gram Stain - Final
08/03/23 05:22 Blood Culture - Final
Blood/Venous No Growth - Final Report
Therapeutic Drug Monitoring
Vancomycin Peak Cancelled 08/07/23 15:19
Random Vancomycin 12.5 ug/ml 08/09/23 05:16
[2023-08-10 07:55] LABS: Glucose - Point of Care 170 mg/dl (70-99)
[2023-08-10] MEDS: COREG 6.25 MG PO ×2 (08:11→20:24)
[2023-08-10] MEDS: PACERONE 200 MG PO (08:12)
[2023-08-10] MEDS: NORVASC 7.5 MG PO (08:12)
[2023-08-10] MEDS: LOW STRENGTH ASPIRIN 81 MG PO (08:12)
[2023-08-10] MEDS: PROTONIX 40 MG PO (08:13)
[2023-08-10] MEDS: LASIX 80 MG PO ×2 (08:13→20:23)
[2023-08-10] MEDS: METAMUCIL, KONSYL 1 PACKET PO (08:17)
[2023-08-10] MEDS: KLOR-CON 20 MEQ PO (08:17)
[2023-08-10] MEDS: NOVOLOG FLEXPEN-LOW RESISTANCE 1 UNITS SC ×2 (08:18→13:15)
[2023-08-10] MEDS: RESTASIS 0.05% OPHTHALMIC EMULSION 1 DROPS OPHTH ×2 (08:20→20:23)
[2023-08-10] MEDS: MIRALAX PO (08:21)
--- NOTE | 2023-08-10 08:27 | W.PN.VS ---
Addendum entered and electronically signed by Mynor Chowdhury MD 08/10/23 10:04:
Seen and examined with PRESTON Walker. Agree with findings as noted below. Dressing removed. Incisions clean dry intact medially and laterally. JPs serosanguineous, slightly dark sanguinous. However drainage is not significant (reviewed drainage).
Drains both stripped. Calf is soft. No recurrent tense hematoma. Dorsal foot blister stable. Dressings reapplied. Plan/as discussed and noted below. Appears to not be actively bleeding currently. Hopefully hemoglobin will stabilize.
Original Note:
Today's Communication / Plan
-
Seen and assessed with Dr. Chowdhury
Assessment/Plan
-
Postoperative day # 2
� Continue compression dressing
� Out of bed/ambulate
� continue to hold anticoagulation for now
Subjective Data
-
Date of Service: August 10, 2023
Patient seen at bedside this a.m. with Dr. Chowdhury. Patient states her leg is less painful but still feels heavy when she attempts to lift it. Compressive dressing appears dry. No events overnight
Objective Data
-
Vital Signs
Temp Pulse Resp BP Pulse Ox
98.1 F 86 20 146/72 97
08/10/23 07:49 08/10/23 07:49 08/10/23 07:49 08/10/23 04:06 08/10/23 07:49
Intake and Output
08/09/23 08/10/23 08/11/23
06:59 06:59 06:59
Intake Total 2762 / 2762 2150 / 2150
Output Total 562 / 562 2310 / 2310
Balance 2200 / 2200 -160 / -160
Intake:
Oral fluids 660 / 660 750 / 750
IV fluids (Total) 330 / 330 100 / 100
nss 330 / 330 100 / 100
IV piggybacks 300 / 300
Blood Products 887 / 887 500 / 500
Fresh frozen plasma 637 / 637
Packed red blood cells 250 / 250 500 / 500
Blood Product Amount Infused ( 885 / 885 500 / 500
mL)
Fresh Frozen Plasma 24 Hours 333 / 333
Unit [id number]
Fresh Frozen Plasma 24 Hours 302 / 302
Unit [id number]
Packed Rbc Leukoreduced Unit 250 / 250
[id number]
Packed Rbc Leukoreduced Unit 250 / 250
[id number]
Packed Rbc Leukoreduced Unit 250 / 250
[id number]
Output:
Drain Output (Total) 112 / 112 110 / 110
Right Lower Leg Neri-Mcguire A 32 / 32 90 / 90
Right Lower Leg Neri-Mcguire B 80 / 80 20 / 20
Urine, Voided 450 / 450 2200 / 2200
Other:
How many times incontinent 1
MODERATE amount urine
How many times incontinent 2
SATURATED amount urine
Lab Results
08/10/23 04:02
08/10/23 04:02
Calcium 8.1 mg/dl (8.4-10.2) L 08/10/23 04:02
Phosphorus 5.1 mg/dl (2.5-4.5) H 08/09/23 05:16
Magnesium 2.1 mg/dl (1.6-2.3) 08/09/23 05:16
Total Bilirubin 0.7 mg/dl (0.2-1.3) 08/02/23 05:50
Direct Bilirubin 0.4 mg/dl (0.0-0.4) 08/02/23 05:50
AST 20 U/L (14-36) 08/02/23 05:50
ALT 12 U/L (0-35) 08/02/23 05:50
Alkaline Phosphatase 68 U/L (38-126) 08/02/23 05:50
Total Protein Cancelled 08/05/23 05:47
Albumin 2.6 g/dl (3.5-5.0) L 08/02/23 05:50
Physical Exam
-
AAOx3
No tachypnea on room air
No tachycardia
Right calf dressings all removed by me. Calf is soft. No significant reaccumulation of blood or fluid. Scant drainage from incisional sites (serosanguineous). JPs intact/stripped
GEORGE - A: 10cc overnight
GEORGE - B: 10cc overnight
Blister on forefoot intact and redressed.
Benton bandage reapplied from toes to knee
Hemoglobin 8.8 this morning
--- NOTE | 2023-08-10 12:18 | W.PN.ID1 ---
Date of Service
Date of Service: August 10, 2023
Today's Communication
Overall impression is most likely contaminant
- no fevers
- no vascular phenomena, no glomerulnephritis, no new blocks, no lesions on the KARL
Stopped antibiotics
Would repeat blood culture as outpatient in two weeks
Follow up in 2 weeks - offered visit with us which she refuses, can follow up with her pcp for the blood cultures
Red flags reviewed - if fevers, chills, chest pain/palpitations, weight loss etc she will contact us or her PCP
Assessment / Plan
Coag negative staph bacteremia in the context of recent valve replacement
Progressive shortness of breath
- improved
Suspected exacerbation of CHF
HTN
A-fib
DM
Obesity
CHF
Hx DVT
Hx endometrial CA (s/p SX and XRT)
Recommendations:
Discussed with EP, unable to leave message for patients ecology professor dr whitaker at [phone] the number listed on [facility] Website
Single blood culture bottle from 08/01 revealing growth of coag negative staph; records now available [phone][facility] and obtained the copy; of the tested antibiotics the MICs are substantially
similar and ultimately interpreted the same as our tested antibiotics here. Still there are no other convincing signs of endocarditis at this time in this patient; could well be contamination
Overall impression is most likely contaminant
- no fevers
- no vascular phenomena, no glomerulnephritis, no new blocks, no lesions on the KARL
Stopped antibiotics
Would repeat blood culture as outpatient in two weeks
Follow up in 2 weeks - offered visit with us which she refuses, can follow up with her pcp for the blood cultures
Red flags reviewed - if fevers, chills, chest pain/palpitations, weight loss etc she will contact us or her PCP
����������������������������������������������������������
Chief Complaint
-: Bacteremia
Subjective / Review of Systems
afebrile
bp stable
minimal leukocytosis
cr 1.2
Vital Signs / Physical Exam
Vital Signs
Vital Signs
Temp Pulse Resp BP Pulse Ox
98.1 F 85 20 150/71 97
08/10/23 07:49 08/10/23 08:00 08/10/23 07:49 08/10/23 07:52 08/10/23 07:49
Objective Data
Lab Data
Lab Results
08/10/23 04:02
08/10/23 04:02
PT 15.2 Sec (11.4-14.6) H 08/08/23 09:50
INR 1.22 08/08/23 09:50
APTT 48.4 Sec (23.4-35.0) H 08/08/23 09:50
Estimated Creat Clear 48 ml/min 08/10/23 04:02
Total Bilirubin 0.7 mg/dl (0.2-1.3) 08/02/23 05:50
AST 20 U/L (14-36) 08/02/23 05:50
ALT 12 U/L (0-35) 08/02/23 05:50
Alkaline Phosphatase 68 U/L (38-126) 08/02/23 05:50
Most recent labs reviewed.
Micro Results:
08/05/23 05:13 Blood Culture - Final
Blood/Venous No Growth - Final Report
08/04/23 04:47 Blood Culture - Final
Blood/Venous No Growth - Final Report
08/02/23 01:17 Blood Culture - Final
Blood/Venous Staphylococcus epidermidis
Gram Stain - Final
08/05/23 17:32 Body Fluid Culture - Final
Pleural Fluid No Growth After 72 Hours
Gram Stain - Final
08/03/23 05:22 Blood Culture - Final
Blood/Venous No Growth - Final Report
08/02/23 01:23 Blood Culture - Final
Blood/Venous No Growth - Final Report
[2023-08-10 12:44] LABS: Glucose - Point of Care 196 mg/dl (70-99)
--- NOTE | 2023-08-10 13:20 | CM ---
Reviewed chart. Met with Miss Rojas to review discharge plans. She states she is doing okay. She states she is still hoping she will be able to go to [facility] when medically stable. She states [facility] is close to her home.
Telephone call to [facility] SN[facility] Admission to update them. Sent updated clinical to them for review. Will need to do the pre-cert for SNF/Rehab. with her insurance once tentative discharge date is known. Medical work-up in progress. The
discharge plan is to rgo to SNF/Rehab.-hopefully [facility] if approved by insurance and bed available when medically stable.
--- NOTE | 2023-08-10 15:43 | W.PN.HOSP.TC ---
Today's Communication/Plan
-
f/u GEORGE drain output
AC remains on hold
f/u hbg level
continue diuretics
Assessment / Plan
Assessment / Plan
A/P: Patient is a 67y F with PMH significant for A-Fib, Obesity, HTN, HLD, DM-II, HFmrEF, valvular heart dz, cardiothoracic surgery, DVT/PE, Endometrial Ca s/p resection/XRT, transferred from [facility] to for evaluation of CHF and possible
endocarditis.
Acute Hypoxemic Respiratory Insufficiency - resolved
Bilateral pleural effusion
-Presumed heart failure exacerbation
-CXR 08/04/23 with b/l Pleural effusion.
-S/p right thoracentesis 08/05/2023 with removal of 500 cc serosanguineous pleural fluid,
-S/p left thoracentesis 08/06/2023 with removal of 400 cc serosanguineous pleural fluid,
Acute hematoma of RLE
- Spontaneous large, tense hematoma of right calf, most likely caused by Lovenox anticoagulation.
- Stop Lovenox.
- S/p urgent washout/evacuation hematoma (Dr. Chowdhury) POD #2
- S/p 2 U FFP and 5 U PRBC this admit
- Repeat washout if continued drainage or bleeding per vascular.
- Vascular surgery appreciated.
- Eventual reinitiation of anticoagulation once cleared by surgery
Anemia of blood loss
-Patient had anemia of chronic disease with added anemia for blood loss
-Hbg stable at this point, continue monitor
Staph epidermidis Bacteremia
-Coagulase-negative staph identified from culture 08/01,
-Continue empiric vancomycin per ID.
-Patient afebrile, vital stable.
-KARL/TTE negative for endocarditis
-ID recs appreciated
Acute on Chronic HFmrEF
-IV Lasix 80mg BID changed to p.o.
-Coreg increased from 3.125-6.25
-Sternal precautions lifted, up and walking around as tolerated.
-Cardiology eval appreciated
Constipation
-Resolved
-Milk and molasses PRN
Metabolic alkalosis
-Most likely due to dehydration given BUN/creatinine level.
Persistent Atrial Fibrillation
- s/p MAZE and HARVINDER exclusion on 06/29.
- Amiodarone previously increased by cardiology to 200 mg BID due to persistent A-fib to restore sinus rhythm, QTc prolonged to 516 MS, amiodarone currently reduced back to 200 mg daily. Patient unwilling to inject Lovenox outpatient, hematology to
determine anticoagulation plan for outpatient.
- Outpatient cardioversion planned, however anticoagulation has to be determined first per cardiology.
- Continue labetalol, carvedilol and amiodarone.
- Minimize/avoid use of QT prolonging agents as possible.
- Follow-up outpatient with primary chemical dependency counselor Dr. Hiren Peters of [facility]
Benign Hypertension
- Relatively stable on Norvasc 7.5 and Coreg 6.25.
- Monitor while on Lasix with holding parameters.
DM-II
- Stable. Hold oral agents for now.
- SSI coverage as needed.
Bilateral LE DVT
History of DVT / PE
- Patient noted on US to have bilateral femoral DVTs at [facility] (07/27).
- currently off anticoagulation due to right leg hematoma
- Patient was on pradaxa at the time and with bleeding from anti Xa meds, warfarin recommended,
LIZBETH on CPAP continued
Morbid Obesity due to excess calories
- Affects all aspects of care.
- Encourage healthy diet and increased activity when able with goal of weight reduction.
Acute urinary retention
indwelling ford catheter
- Patient arrives at with Ford catheter in place. This was placed at [facility], presumably for I/O determination.
- Maintain Ford for now.
- Eventual trial of void prior to discharge
DVT Prophylaxis: Hold Lovenox
Code Status: Full
Anticipated Discharge: > 48 hours
Subjective/Interval History
-
Date of Service: August 10, 2023
Some right leg discomfort
Denies dyspnea, not on oxygen
Afebrile overnight
No other acute events reported
Objective Data
-
Labs:
Laboratory Results
08/10/23 08/10/23 08/10/23
04:02 04:02 04:02
WBC 12.2 H
Hgb Cancelled 8.8 L D
Hct Cancelled 26.0 L
Plt Count 146
Sodium 134 L
Potassium 3.1 L
Chloride 94 L
Carbon Dioxide 33 H
BUN 24 H
Creatinine 1.2 H
Glucose 186 H
Calcium 8.1 L
Vital Signs:
Vital Signs
Temp Pulse Resp BP Pulse Ox
98.0 F 88 18 122/69 99
08/10/23 13:14 08/10/23 14:43 08/10/23 13:14 08/10/23 14:43 08/10/23 13:14
I&O
08/09/23 08/10/23 08/11/23
06:59 06:59 06:59
Intake Total 2762 / 2762 2150 / 2150
Output Total 562 / 562 2310 / 2310
Balance 2200 / 2200 -160 / -160
Review of Systems
-
Respiratory: Reports No Symptoms
Cardiac: Reports No Symptoms
Abdomen/GI: Reports No Symptoms
Physical Exam
-
General: Obese
HEENT: Negative Oxygen
Respiratory: Clear to Auscultation and Non Labored Respirations; Negative Wheezes
Cardiac: Regular Rhythm, S1/S2 and Rub; Negative Murmur
GI: Soft, Nontender and Nondistended
Skin: Warm and Other (Diffuse echymosis, right leg GEORGE drain in place)
Neuro: Awake, Alert, Oriented and AO x 3
Psych: Calm and Intact Judgement/Insight
[2023-08-10 17:48] LABS: Glucose - Point of Care 210 mg/dl (70-99)
[2023-08-10] MEDS: NOVOLOG FLEXPEN-LOW RESISTANCE 2 UNITS SC (17:58)
--- NOTE | 2023-08-10 18:27 | PTCARENOTE ---
Pt assisted oob to the chair with one assist and the walker. Pt remains in the chair and does not wish to be back in bed yet. Pt c/o of a headache and right lower leg discomfort. Medicated with tylenol with relief. Dr Chowdhury in this am and changed
right lower leg dressing. Siddharth drains intact and draining sanguineous drainage. Denies any chest pain or sob.
--- NOTE | 2023-08-10 20:00 | PTCARENOTE ---
report received from previous RN, walking rounds done. pt in chair, AAOx4. pt denies any pain. VSS. AFIB on monitor, HR 80's. POX 95% on room air. R DL PICC intact and patent. see worklist for full assessment, VS, and interventions. pt resting
comfortably w call light in reach.
[2023-08-10] MEDS: KLOR-CON 40 MEQ PO (20:24)
[2023-08-10] MEDS: MELATONIN 3 MG PO (21:38)
--- NOTE | 2023-08-10 22:37 | W.PN.ONC2 ---
Today's Communication / Plan
-
IVC filter should be placed if not able to start back on anticoagulation next day or two.
Impression
Impression
Hemorrhagic ecchymoses likely due to Lovenox
B/l femoral DVT 07/27 representing Pradaxa failure
Plan
Plan
Anticoagulation currently on hold which leaves pt on no treatment for b/l proximal DVT's
Case d/w Dr. Chowdhury - anticipates being able to start back on anticoagualtion tomorrow.
If unable to do so or if rebleeding, would place IVC filter.
Subjective/Objective
Chief Complaint
Heme/Onc follow up of DVT, bleeding
Subjective
Anticoagulation on hold for hematoma. Pt states she had a filter briefly in 2012 when she presented with DVT/PE in setting of endometrial cancer. Filter was placed to allow her to undergo surgery, then removed. Denies chest pain, shortness of
breath.
Vital Signs:
Vital Signs
Temp Pulse Resp BP Pulse Ox
98.4 F 89 20 149/68 95
08/10/23 20:12 08/10/23 20:00 08/10/23 20:12 08/10/23 19:19 08/10/23 20:12
Lab Results:
Laboratory Data
WBC 12.2 10^3/uL (4.8-10.8) H 08/10/23 04:02
Hgb 8.8 g/dL (12.0-16.0) L D 08/10/23 04:02
Hgb Cancelled 08/10/23 04:02
Plt Count 146 10^3/uL (130-400) 08/10/23 04:02
PT 15.2 Sec (11.4-14.6) H 08/08/23 09:50
INR 1.22 08/08/23 09:50
APTT 48.4 Sec (23.4-35.0) H 08/08/23 09:50
eGFR 48.70 08/10/23 04:02
[2023-08-10 22:38] LABS: Glucose - Point of Care 179 mg/dl (70-99)
[2023-08-11] VITALS (8 sets, daily range): BP systolic 124–156; BP diastolic 59–77; PULSE 84; O2SAT 98; BMI 44.3
--- NOTE | 2023-08-11 04:30 | PTCARENOTE ---
pt VSS, no changes in assessment overnight. AFIB 80's. POX 97-98% on CPAP. purewick catheter in place. LLE GEORGE drains w minimal output. PICC remains intact. pt sleeping between care.
[2023-08-11 06:47] LABS: Glucose - Point of Care 156 mg/dl (70-99)
[2023-08-11] MEDS: NOVOLOG FLEXPEN-LOW RESISTANCE 1 UNITS SC ×2 (07:38→12:39)
[2023-08-11 07:45] LABS: Hematocrit 24.6 % (37.0-47.0); Hemoglobin 8.3 g/dL (12.0-16.0); Mean Corp Hgb Conc. 33.7 g/dL (33.0-37.0); Mean Corpuscular Hgb 31.6 pg (27.0-31.0); Mean Corpuscular Volume 93.5 fL (81.0-99.0); Mean Platelet Volume 9.6 fL (7.4-10.4); Platelet Count 143 10^3/uL (130-400); Red Blood Cell Count 2.63 10^6/uL (4.20-5.40); Red Cell Dist. Width 16.1 % (11.5-14.5); White Blood Cell Count 7.2 10^3/uL (4.8-10.8)
[2023-08-11] MEDS: PACERONE 200 MG PO (07:45)
[2023-08-11] MEDS: NORVASC 7.5 MG PO (07:45)
[2023-08-11] MEDS: LASIX 80 MG PO ×2 (07:47→19:56)
[2023-08-11] MEDS: COREG 6.25 MG PO ×2 (07:47→19:55)
[2023-08-11] MEDS: LOW STRENGTH ASPIRIN 81 MG PO (07:47)
[2023-08-11] MEDS: PROTONIX 40 MG PO (07:47)
[2023-08-11] MEDS: MIRALAX PO (07:48)
[2023-08-11] MEDS: METAMUCIL, KONSYL 1 PACKET PO (07:48)
[2023-08-11] MEDS: RESTASIS 0.05% OPHTHALMIC EMULSION 1 DROPS OPHTH ×2 (07:55→19:56)
[2023-08-11] MEDS: KLOR-CON 40 MEQ PO ×2 (07:55→19:55)
--- NOTE | 2023-08-11 08:00 | W.PN.VS ---
Addendum entered and electronically signed by Devin Pena III, MD 08/11/23 11:51:
This patient was seen and examined with TELMA Khalil. I agree with the history and physical exam as well as the assessment and plan. I have the following additions:
Patient comfortable
Right calf incisions are clean and dry
Right calf is large but soft
JPs small volume, sanguinous
Reinitiate anticoagulation today
Keep GEORGE drains in place
PT/OT
Will follow
Signed: Devin Pena III, MD
[facility] V[facility] Surgery
[phone] (pzft)
Original Note:
Today's Communication / Plan
-
Patient seen and examined with Dr. Devin Pena III, below plan reviewed with attending.
Assessment/Plan
-
Postoperative day # 3
� Continue compression dressing
� Out of bed/ambulate
-Continue PT
� Can reinitiate anticoagulation in the form of heparin infusion would not recommend bolus, if patient tolerates heparin fusion with no signs of increased bleeding or drainage output can consider transitioning to oral anticoagulation tomorrow
-Plan discussed with hospitalist and hematology team
Subjective Data
-
Date of Service: August 11, 2023
Patient seen and examined at bedside, reports continued improvement in right lower extremity discomfort and swelling. Denies decreased motor or sensation to right lower extremity. Denies nausea, vomiting, fever, and chills.
Objective Data
-
Vital Signs
Temp Pulse Resp BP Pulse Ox
97.5 F 86 18 156/74 97
08/11/23 06:43 08/11/23 07:00 08/11/23 06:43 08/11/23 06:42 08/11/23 08:00
Intake and Output
08/10/23 08/11/23 08/12/23
06:59 06:59 06:59
Intake Total 2149 / 0
Output Total 2310 / 2310 2315 / 2315
Balance -160 / -160 -2315 / -2315
Intake:
Oral fluids 750 / 750
IV fluids (Total) 100 / 100
nss 100 / 100
IV piggybacks 300 / 300
Blood Products 500 / 500
Packed red blood cells 500 / 500
Blood Product Amount Infused ( 500 / 500
mL)
Packed Rbc Leukoreduced Unit 250 / 250
[id number]
Packed Rbc Leukoreduced Unit 250 / 250
[id number]
Output:
Drain Output (Total) 110 / 110 65 / 65
Right Lower Leg Neri-Mcguire A 90 / 90 45 / 45
Right Lower Leg Neri-Mcguire B 20 / 20 20 / 20
Urine, Voided 2200 / 2200 2250 / 2250
Lab Results
08/11/23 07:32
08/11/23 07:32
Calcium 8.0 mg/dl (8.4-10.2) L 08/11/23 07:32
Phosphorus 5.1 mg/dl (2.5-4.5) H 08/09/23 05:16
Magnesium 2.0 mg/dl (1.6-2.3) 08/11/23 07:32
Total Bilirubin 0.7 mg/dl (0.2-1.3) 08/02/23 05:50
Direct Bilirubin 0.4 mg/dl (0.0-0.4) 08/02/23 05:50
AST 20 U/L (14-36) 08/02/23 05:50
ALT 12 U/L (0-35) 08/02/23 05:50
Alkaline Phosphatase 68 U/L (38-126) 08/02/23 05:50
Total Protein Cancelled 08/05/23 05:47
Albumin 2.6 g/dl (3.5-5.0) L 08/02/23 05:50
Physical Exam
-
AAOx3
No tachypnea on room air
No tachycardia
Right calf dressings all removed, calf is soft/compressible. JPs intact/stripped
GEORGE - A: 5cc overnight
GEORGE - B: 5cc overnight
Blister on forefoot intact and redressed.
Benton bandage reapplied from toes to knee
Hemoglobin 8.3 this morning
[2023-08-11 08:03] LABS: Blood Urea Nitrogen 21 mg/dl (7-17); Carbon Dioxide 33 mmol/L (22-30); Chloride 94 mmol/L (98-107); Estimated Creatinine Clearance 57 ml/min; Glucose 131 mg/dl (70-99); Potassium 3.2 mmol/L (3.5-5.1); Sodium 133 mmol/L (135-145); eGFR > 60.00
[2023-08-11] MEDS: KCL 40 MEQ PO (09:23)
--- NOTE | 2023-08-11 10:11 | W.PN.ID1 ---
Date of Service
Date of Service: August 11, 2023
Today's Communication
Would repeat blood culture as outpatient in two weeks
Follow up in 2 weeks - offered visit with us which she refuses, can follow up with her pcp for the blood cultures
Red flags reviewed - if fevers, chills, chest pain/palpitations, weight loss etc she will contact us or her PCP
Assessment / Plan
Coag negative staph bacteremia in the context of recent valve replacement
Progressive shortness of breath
- improved
Suspected exacerbation of CHF
HTN
A-fib
DM
Obesity
CHF
Hx DVT
Hx endometrial CA (s/p SX and XRT)
Recommendations:
Left message for Dr Hiren Whitaker
Single blood culture bottle from 08/01 revealing growth of coag negative staph; records now available [phone][facility] and obtained the copy; of the tested antibiotics the MICs are substantially
similar and ultimately interpreted the same as our tested antibiotics here. Still there are no other convincing signs of endocarditis at this time in this patient; could well be contamination
Overall impression is most likely contaminant
- no fevers
- no vascular phenomena, no glomerulnephritis, no new blocks, no lesions on the KARL
Stopped antibiotics
Would repeat blood culture as outpatient in two weeks
Follow up in 2 weeks - offered visit with us which she refuses, can follow up with her pcp for the blood cultures
Red flags reviewed - if fevers, chills, chest pain/palpitations, weight loss etc she will contact us or her PCP
����������������������������������������������������������
Chief Complaint
-: Bacteremia
Subjective / Review of Systems
remains afebrile
bp stable
called dr whitaker at [phone] - left message to please do blood culture in 2 weeks, left my cell phone.
R calf examined bruising, surgical site no erythema, dehiscence
Vital Signs / Physical Exam
Vital Signs
Vital Signs
Temp Pulse Resp BP Pulse Ox
97.5 F 86 18 156/74 97
08/11/23 06:43 08/11/23 07:00 08/11/23 06:43 08/11/23 06:42 08/11/23 08:00
Physical Exam
Constitutional: No Acute Distress
Cardiovascular: Regular Rate and S1/S2; Negative Murmur or Rub
Pulmonary: Clear and Symmetric; Negative Wheezes or Rales
Gastrointestinal: Soft, Non Tender, Non Distended and Normal Bowel Sounds
Extremities: Other (R calf examined bruising, surgical site no erythema or dehiscence)
Skin: Warm and Dry; Negative Rash or Jaundice
Neurological: Awake
Objective Data
Lab Data
Lab Results
08/11/23 07:32
08/11/23 07:32
PT 15.2 Sec (11.4-14.6) H 08/08/23 09:50
INR 1.22 08/08/23 09:50
APTT 48.4 Sec (23.4-35.0) H 08/08/23 09:50
Estimated Creat Clear 57 ml/min 08/11/23 07:32
Total Bilirubin 0.7 mg/dl (0.2-1.3) 08/02/23 05:50
AST 20 U/L (14-36) 08/02/23 05:50
ALT 12 U/L (0-35) 08/02/23 05:50
Alkaline Phosphatase 68 U/L (38-126) 08/02/23 05:50
Most recent labs reviewed.
Micro Results:
08/05/23 05:13 Blood Culture - Final
Blood/Venous No Growth - Final Report
08/04/23 04:47 Blood Culture - Final
Blood/Venous No Growth - Final Report
08/02/23 01:17 Blood Culture - Final
Blood/Venous Staphylococcus epidermidis
Gram Stain - Final
08/05/23 17:32 Body Fluid Culture - Final
Pleural Fluid No Growth After 72 Hours
Gram Stain - Final
08/03/23 05:22 Blood Culture - Final
Blood/Venous No Growth - Final Report
08/02/23 01:23 Blood Culture - Final
Blood/Venous No Growth - Final Report
--- NOTE | 2023-08-11 10:53 | W.PN.ONC ---
Today's Communication / Plan
-
Agree w/ plans to start heparin drip, as bridge to warfarin
Discussed INR monitoring to be done by PCP, goal 2-3. Because of issues with transportation, would benefit from home INR monitor
Will sign off, please call with questions
Impression
Impression
Hemorrhagic ecchymoses likely due to Lovenox
B/l femoral DVT 07/27 representing Pradaxa failure
Afib
Plan
Plan
Agree w/ plans to start heparin drip, as bridge to warfarin
Discussed INR monitoring to be done by PCP, goal 2-3. Because of issues with transportation, would benefit from home INR monitor
Will sign off, please call with questions
Subjective/Objective
Subjective/Objective
No new complaints or issues. Frustrated that she'll have to pay for transportation to come back in two weeks for suture removal.
Vital Signs:
Vital Signs
Temp Pulse Resp BP Pulse Ox
97.5 F 86 18 156/74 97
08/11/23 06:43 08/11/23 07:00 08/11/23 06:43 08/11/23 06:42 08/11/23 08:00
Lab Results:
Laboratory Data
WBC 7.2 10^3/uL (4.8-10.8) 08/11/23 07:32
Hgb 8.3 g/dL (12.0-16.0) L 08/11/23 07:32
Plt Count 143 10^3/uL (130-400) 08/11/23 07:32
PT 15.2 Sec (11.4-14.6) H 08/08/23 09:50
INR 1.22 08/08/23 09:50
APTT 48.4 Sec (23.4-35.0) H 08/08/23 09:50
eGFR > 60.00 08/11/23 07:32
[2023-08-11 12:17] LABS: Glucose - Point of Care 187 mg/dl (70-99)
[2023-08-11 12:30] LABS: APTT 26.8 Sec (23.4-35.0)
[2023-08-11] MEDS: HEPARIN 25000 UNITS/250 ML IV (12:33)
[2023-08-11] MEDS: TYLENOL 650 MG PO ×2 (12:44→17:45)
--- NOTE | 2023-08-11 14:56 | W.PN.HOSP.TC ---
Today's Communication/Plan
-
starting heparin/warfarin bridge
f/u hbg level
Assessment / Plan
Assessment / Plan
A/P: Patient is a 67y F with PMH significant for A-Fib, Obesity, HTN, HLD, DM-II, HFmrEF, valvular heart dz, cardiothoracic surgery, DVT/PE, Endometrial Ca s/p resection/XRT, transferred from [facility] to for evaluation of CHF and possible
endocarditis.
Acute Hypoxemic Respiratory Insufficiency - resolved
Bilateral pleural effusion
-Presumed heart failure exacerbation
-CXR 08/04/23 with b/l Pleural effusion.
-S/p right thoracentesis 08/05/2023 with removal of 500 cc serosanguineous pleural fluid,
-S/p left thoracentesis 08/06/2023 with removal of 400 cc serosanguineous pleural fluid,
Acute hematoma of RLE
- Spontaneous large, tense hematoma of right calf, most likely caused by Lovenox anticoagulation.
- Stop Lovenox.
- S/p urgent washout/evacuation hematoma (Dr. Chowdhury) POD #2
- S/p 2 U FFP and 5 U PRBC this admit
- Repeat washout if continued drainage or bleeding per vascular.
- Vascular surgery appreciated.
- Patient to be bridged to warfarin therapy, heparin started
Anemia of blood loss
- Patient had anemia of chronic disease with added anemia for blood loss
- Hbg stable at this point, continue monitor
Staph epidermidis Bacteremia
- Coagulase-negative staph identified from culture 08/01,
- Continue empiric vancomycin per ID.
- Patient afebrile, vital stable.
- KARL/TTE negative for endocarditis
- ID recs appreciated
Acute on Chronic HFmrEF
-on PO lasix 80mg twice daily.
-Coreg increased from 3.125-6.25
-Sternal precautions lifted, up and walking around as tolerated.
-Cardiology eval appreciated
Constipation
- Resolved
- Milk and molasses PRN
Metabolic alkalosis
- Most likely due to dehydration given BUN/creatinine level.
Persistent Atrial Fibrillation
- s/p MAZE and HARVINDER exclusion on 06/29.
- Amiodarone previously increased by cardiology to 200 mg BID due to persistent A-fib to restore sinus rhythm, QTc prolonged to 516 MS, amiodarone currently reduced back to 200 mg daily. Patient unwilling to inject Lovenox outpatient, hematology to
determine anticoagulation plan for outpatient.
- Outpatient cardioversion planned, however anticoagulation has to be determined first per cardiology.
- Continue labetalol, carvedilol and amiodarone.
- Minimize/avoid use of QT prolonging agents as possible.
- Follow-up outpatient with primary director of sales support Dr. Hiren Peters of [facility]
DM-II
- Stable. Hold oral agents for now.
- SSI coverage as needed.
Bilateral LE DVT
History of DVT / PE
- Patient noted on US to have bilateral femoral DVTs at [facility] (07/27).
- currently off anticoagulation due to right leg hematoma
- Patient was on pradaxa at the time and with bleeding from anti Xa meds, warfarin recommended,
LIZBETH on CPAP continued
Morbid Obesity due to excess calories
- Affects all aspects of care.
- Encourage healthy diet and increased activity when able with goal of weight reduction.
Acute urinary retention
indwelling ford catheter
- Patient arrives at with Ford catheter in place. This was placed at [facility], presumably for I/O determination.
- Maintain Ford for now.
- Eventual trial of void prior to discharge
DVT Prophylaxis: Hold Lovenox
Code Status: Full
Anticipated Discharge: 24 - 48 hours
Subjective/Interval History
-
Date of Service: August 11, 2023
Resting comfortably in bed
Denies having excessive right leg pain
No other acute issues overnight
Objective Data
-
Labs:
Laboratory Results
08/11/23 08/11/23
07:32 11:59
WBC 7.2
Hgb 8.3 L
Hct 24.6 L
Plt Count 143
APTT 26.8
Sodium 133 L
Potassium 3.2 L
Chloride 94 L
Carbon Dioxide 33 H
BUN 21 H
Creatinine 1.0
Glucose 131 H
Calcium 8.0 L
Vital Signs:
Vital Signs
Temp Pulse Resp BP Pulse Ox
98.4 F 86 18 156/74 98
08/11/23 12:16 08/11/23 07:00 08/11/23 12:16 08/11/23 06:42 08/11/23 12:16
I&O
08/10/23 08/11/23 08/12/23
06:59 06:59 06:59
Intake Total 2150 / 2150
Output Total 2310 / 2310 2315 / 2315 900 / 900
Balance -160 / -160 -2315 / -2315 -900 / -900
Review of Systems
-
Respiratory: Reports No Symptoms
Cardiac: Reports No Symptoms
Abdomen/GI: Reports No Symptoms
Physical Exam
-
General: Obese
HEENT: Negative Oxygen
Respiratory: Clear to Auscultation and Non Labored Respirations; Negative Wheezes
Cardiac: Regular Rhythm, S1/S2 and Rub; Negative Murmur
GI: Soft, Nontender and Nondistended
Skin: Warm and Other (Diffuse echymosis, right leg GEORGE drain in place)
Neuro: Awake, Alert, Oriented and AO x 3
Psych: Calm and Intact Judgement/Insight
[2023-08-11] MEDS: COUMADIN 5 MG PO (17:43)
[2023-08-11 18:04] LABS: Glucose - Point of Care 204 mg/dl (70-99)
[2023-08-11] MEDS: NOVOLOG FLEXPEN-LOW RESISTANCE 2 UNITS SC (18:11)
[2023-08-11 19:32] LABS: APTT 154.2 Sec (23.4-35.0)
[2023-08-11 21:27] LABS: Glucose - Point of Care 160 mg/dl (70-99)
[2023-08-11] MEDS: MELATONIN 3 MG PO (21:39)
[2023-08-12] VITALS (9 sets, daily range): BP systolic 125–149; BP diastolic 57–70; PULSE 82–89; O2SAT 98; BMI 44.5
[2023-08-12 03:30] LABS: Hematocrit 22.9 % (37.0-47.0); Hemoglobin 7.8 g/dL (12.0-16.0); Mean Corp Hgb Conc. 34.1 g/dL (33.0-37.0); Mean Corpuscular Hgb 31.1 pg (27.0-31.0); Mean Corpuscular Volume 91.2 fL (81.0-99.0); Mean Platelet Volume 9.8 fL (7.4-10.4); Platelet Count 153 10^3/uL (130-400); Red Blood Cell Count 2.51 10^6/uL (4.20-5.40); Red Cell Dist. Width 16.5 % (11.5-14.5)
[2023-08-12 03:40] LABS: INR 1.17; PT 14.7 Sec (11.4-14.6)
[2023-08-12 03:55] LABS: APTT 168.6 Sec (23.4-35.0)
[2023-08-12 04:25] LABS: Blood Urea Nitrogen 22 mg/dl (7-17); Calcium 8.4 mg/dl (8.4-10.2); Carbon Dioxide 30 mmol/L (22-30); Chloride 95 mmol/L (98-107); Estimated Creatinine Clearance 57 ml/min; Glucose 173 mg/dl (70-99); Potassium 3.5 mmol/L (3.5-5.1); Sodium 132 mmol/L (135-145); eGFR > 60.00
--- NOTE | 2023-08-12 05:17 | PTCARENOTE ---
No complaints of pain/discomfort overnight, VSS, A-fib on the monitor. Pt. able to ambulate with assist x 2 & RW, generally weak. Pt.'s hemoglobin this morning resulted 7.8 & PTT has been running high (protocol followed, heparin stopped and
restarted at lesser rate). Right lower medial leg GEORGE drain site oozing SS drainage requiring dressing change and reinforcement (around drain insertion site only). JACIEL wrap below intact, no oozing visible beneath, Doppler pedal pulse present. "Davian"Rolando from vascular surgery notified of drain site oozing as well as hemoglobin of 7.8 & elevated PTT's. Telephone order obtained to old heparin x 2 hours (instead of one hour per protocol) and restart at 300 units less per hour (which would be 1300
units/hr). Shift output from GEORGE drain A 20 ml; GEORGE drain B 10 ml.
[2023-08-12] MEDS: HEPARIN 25000 UNITS/250 ML IV (06:01)
[2023-08-12 07:08] LABS: Glucose - Point of Care 163 mg/dl (70-99)
[2023-08-12] MEDS: KLOR-CON 40 MEQ PO ×2 (07:37→20:35)
[2023-08-12] MEDS: METAMUCIL, KONSYL 1 PACKET PO (07:37)
[2023-08-12] MEDS: LASIX 80 MG PO ×2 (07:38→20:31)
[2023-08-12] MEDS: COREG 6.25 MG PO ×2 (07:38→20:31)
[2023-08-12] MEDS: NORVASC 7.5 MG PO (07:39)
[2023-08-12] MEDS: PROTONIX 40 MG PO (07:39)
[2023-08-12] MEDS: LOW STRENGTH ASPIRIN 81 MG PO (07:40)
[2023-08-12] MEDS: PACERONE 200 MG PO (07:40)
[2023-08-12] MEDS: RESTASIS 0.05% OPHTHALMIC EMULSION 1 DROPS OPHTH ×2 (07:44→20:35)
[2023-08-12] MEDS: MIRALAX PO (07:44)
[2023-08-12] MEDS: NOVOLOG FLEXPEN-LOW RESISTANCE 1 UNITS SC ×2 (07:46→17:31)
--- NOTE | 2023-08-12 08:12 | W.PN.VS ---
Addendum entered and electronically signed by Mynor Chowdhury MD 08/12/23 09:30:
Seen and examined with PRESTON Rodgers. Agree with findings as noted below. Right lower extremity dressings removed. Calf remains soft. No recurrent collection of hematoma. Drains continue to drain 20 to 30 cc per 24 hours each. Some slight drainage
around one of the drains. I did stripped drains well. Incisions both clean dry and intact. Dorsal foot blister stable. Plan/as discussed and noted below. I think it is reasonable to continue heparin. Would hold off on oral anticoagulation
still to make sure no further significant bleeding that would warrant us to hold anticoagulation. Likely if after another 24 hours all remained stable then can transition to oral anticoagulation. Her hemoglobin did drop a little bit today.
Continue to observe.
Original Note:
Today's Communication / Plan
-
Patient seen evaluated at bedside with Dr. Mynor Chowdhury, below plan reviewed with attending
Assessment/Plan
-
Postoperative day # 4
�Continue compression dressing
�Out of bed/ambulate
-Continue PT
�Patient with scant decrease in hemoglobin to 7.8 can continue anticoagulation via heparin infusion would not recommend transition to oral anticoagulation today, would favor continuing to watch hemoglobin for another 24 hours prior to initiation of
OAC.
-Dressing changed by vascular surgery team
Subjective Data
-
Date of Service: August 12, 2023
Patient seen and examined at bedside, reports continued improvement in right lower extremity pain; really only notes pain when calf is palpated/touched. Denies nausea, vomiting, fever, and chills.
Objective Data
-
Vital Signs
Temp Pulse Resp BP Pulse Ox
97.9 F 80 20 132/68 97
08/12/23 07:02 08/12/23 03:00 08/12/23 07:02 08/12/23 02:48 08/12/23 07:02
Intake and Output
08/11/23 08/12/23 08/13/23
06:59 06:59 06:59
Intake Total 240 / 240
Output Total 2315 / 2315 1855 / 1855
Balance -2315 / -2315 -1615 / -1615
Intake:
Oral fluids 240 / 240
Output:
Drain Output (Total) 65 / 65 55 / 55
Right Lower Leg Neri-Mcguire A 45 / 45 35 / 35
Right Lower Leg Neri-Mcguire B 20
Urine, Voided 2250 / 2250 1800 / 1800
Lab Results
08/12/23 02:50
08/12/23 02:50
Calcium 8.4 mg/dl (8.4-10.2) 08/12/23 02:50
Phosphorus 5.1 mg/dl (2.5-4.5) H 08/09/23 05:16
Magnesium 2.0 mg/dl (1.6-2.3) 08/11/23 07:32
Total Bilirubin 0.7 mg/dl (0.2-1.3) 08/02/23 05:50
Direct Bilirubin 0.4 mg/dl (0.0-0.4) 08/02/23 05:50
AST 20 U/L (14-36) 08/02/23 05:50
ALT 12 U/L (0-35) 08/02/23 05:50
Alkaline Phosphatase 68 U/L (38-126) 08/02/23 05:50
Total Protein Cancelled 08/05/23 05:47
Albumin 2.6 g/dl (3.5-5.0) L 08/02/23 05:50
Physical Exam
-
AAOx3
No tachypnea on room air
No tachycardia
Right calf dressings all removed, calf is soft/compressible. JPs intact/stripped, some scant drainage noted around lateral GEORGE, both drains stripped
GEORGE - A: 35ml
GEORGE - B: 20ml
Blister on forefoot intact and redressed.
--- NOTE | 2023-08-12 08:57 | W.PN.ID1 ---
Date of Service
Date of Service: August 12, 2023
Today's Communication
remains stable off of antibiotics
Assessment / Plan
Coag negative staph bacteremia in the context of recent valve replacement
Progressive shortness of breath
- improved
Suspected exacerbation of CHF
HTN
A-fib
DM
Obesity
CHF
Hx DVT
Hx endometrial CA (s/p SX and XRT)
Recommendations:
Single blood culture bottle from 08/01 revealing growth of coag negative staph; records now available (I spoke with [facility] ([phone]) and obtained the copy; of the tested antibiotics the MICs are substantially
similar and ultimately interpreted the same as our tested antibiotics here. Still there are no other convincing signs of endocarditis at this time in this patient; could well be contamination
Overall impression is most likely contaminant
- no fevers
- no vascular phenomena, no glomerulnephritis, no new blocks, no lesions on the KARL
Stopped antibiotics
Would repeat blood culture as outpatient in two weeks
Follow up in 2 weeks - offered visit with us which she refuses, can follow up with her pcp for the blood cultures
Red flags reviewed - if fevers, chills, chest pain/palpitations, weight loss etc she will contact us or her PCP
����������������������������������������������������������
Chief Complaint
-: Bacteremia
Subjective / Review of Systems
remains afebrile
bp stable
without leukocytosis
cr stable
only complaint is tiredness
Vital Signs / Physical Exam
Vital Signs
Vital Signs
Temp Pulse Resp BP Pulse Ox
97.9 F 80 20 132/68 97
08/12/23 07:02 08/12/23 03:00 08/12/23 07:02 08/12/23 02:48 08/12/23 07:02
Physical Exam
Constitutional: No Acute Distress
Cardiovascular: Regular Rate and S1/S2; Negative Murmur or Rub
Pulmonary: Clear and Symmetric; Negative Wheezes or Rales
Gastrointestinal: Soft, Non Tender, Non Distended and Normal Bowel Sounds
Skin: Warm and Dry; Negative Rash or Jaundice
Objective Data
Lab Data
Lab Results
08/12/23 02:50
08/12/23 02:50
PT Cancelled 08/12/23 06:00
INR Cancelled 08/12/23 06:00
APTT 168.6 Sec (23.4-35.0) H* 08/12/23 02:50
Estimated Creat Clear 57 ml/min 08/12/23 02:50
Total Bilirubin 0.7 mg/dl (0.2-1.3) 08/02/23 05:50
AST 20 U/L (14-36) 08/02/23 05:50
ALT 12 U/L (0-35) 08/02/23 05:50
Alkaline Phosphatase 68 U/L (38-126) 08/02/23 05:50
Most recent labs reviewed.
Micro Results:
08/05/23 05:13 Blood Culture - Final
Blood/Venous No Growth - Final Report
08/04/23 04:47 Blood Culture - Final
Blood/Venous No Growth - Final Report
08/02/23 01:17 Blood Culture - Final
Blood/Venous Staphylococcus epidermidis
Gram Stain - Final
08/05/23 17:32 Body Fluid Culture - Final
Pleural Fluid No Growth After 72 Hours
Gram Stain - Final
08/03/23 05:22 Blood Culture - Final
Blood/Venous No Growth - Final Report
08/02/23 01:23 Blood Culture - Final
Blood/Venous No Growth - Final Report
[2023-08-12] MEDS: NOVOLOG FLEXPEN-LOW RESISTANCE 2 UNITS SC (12:10)
[2023-08-12 12:15] LABS: Glucose - Point of Care 211 mg/dl (70-99)
[2023-08-12 12:30] LABS: APTT 115.8 Sec (23.4-35.0)
--- NOTE | 2023-08-12 14:29 | W.PN.HOSP.TC ---
Today's Communication/Plan
-
continue heparin/warfarin bridging
Follow-up INR
Discharge planning for SNF rehab in 48 hours
Assessment / Plan
Assessment / Plan
A/P: Patient is a 67y F with PMH significant for A-Fib, Obesity, HTN, HLD, DM-II, HFmrEF, valvular heart dz, cardiothoracic surgery, DVT/PE, Endometrial Ca s/p resection/XRT, transferred from [facility] to for evaluation of CHF and possible
endocarditis.
Acute Hypoxemic Respiratory Insufficiency - resolved
Bilateral pleural effusion
-Presumed heart failure exacerbation
-CXR 08/04/23 with b/l Pleural effusion.
-S/p right thoracentesis 08/05/2023 with removal of 500 cc serosanguineous pleural fluid,
-S/p left thoracentesis 08/06/2023 with removal of 400 cc serosanguineous pleural fluid,
Acute hematoma of RLE
- Spontaneous large, tense hematoma of right calf, most likely caused by Lovenox anticoagulation.
- Stop Lovenox.
- S/p urgent washout/evacuation hematoma (Dr. Chowdhury) POD #2
- S/p 2 U FFP and 5 U PRBC this admit
- Repeat washout if continued drainage or bleeding per vascular.
- Vascular surgery appreciated.
- Patient to be bridged to warfarin therapy, heparin started. INR 1.17 today. Continue monitoring, second dose warfarin in evening today.
Anemia of blood loss
- Patient had anemia of chronic disease with added anemia for blood loss
- Hbg stable at this point, continue monitor
Staph epidermidis Bacteremia
- Coagulase-negative staph identified from culture 08/01,
- Continue empiric vancomycin per ID.
- Patient afebrile, vital stable.
- KARL/TTE negative for endocarditis
- ID recs appreciated
Acute on Chronic HFmrEF
-on PO lasix 80mg twice daily.
-Coreg increased from 3.125-6.25
-Sternal precautions lifted, up and walking around as tolerated.
-Cardiology eval appreciated
Constipation
- Resolved
- Milk and molasses PRN
Metabolic alkalosis
- Most likely due to dehydration given BUN/creatinine level.
Persistent Atrial Fibrillation
- s/p MAZE and HARVINDER exclusion on 06/29.
- Amiodarone previously increased by cardiology to 200 mg BID due to persistent A-fib to restore sinus rhythm, QTc prolonged to 516 MS, amiodarone currently reduced back to 200 mg daily. Patient unwilling to inject Lovenox outpatient, hematology to
determine anticoagulation plan for outpatient.
- Outpatient cardioversion planned, however anticoagulation has to be determined first per cardiology.
- Continue labetalol, carvedilol and amiodarone.
- Minimize/avoid use of QT prolonging agents as possible.
- [facility] Dr. Hiren Peters of [facility]
DM-II
- Stable. Hold oral agents for now.
- SSI coverage as needed.
Bilateral LE DVT
History of DVT / PE
- Patient noted on US to have bilateral femoral DVTs at [facility] (07/27).
- currently off anticoagulation due to right leg hematoma
- Patient was on pradaxa at the time and with bleeding from anti Xa meds, warfarin recommended,
LIZBETH on CPAP continued
Morbid Obesity due to excess calories
- Affects all aspects of care.
- Encourage healthy diet and increased activity when able with goal of weight reduction.
Acute urinary retention
indwelling ford catheter
- Patient arrives at with Ford catheter in place. This was placed at [facility], presumably for I/O determination.
- Maintain Ford for now.
- Eventual trial of void prior to discharge
DVT Prophylaxis: Hold Lovenox
Code Status: Full
Anticipated Discharge: > 48 hours
Subjective/Interval History
-
Date of Service: August 12, 2023
Some discomfort in the right leg
Question regarding her warfarin therapy, answered
No other acute issues reported
Objective Data
-
Labs:
Laboratory Results
08/12/23 08/12/23
02:50 12:03
WBC 7.0
Hgb 7.8 L
Hct 22.9 L
Plt Count 153
PT 14.7 H
INR 1.17
APTT 168.6 H* 115.8 H
Sodium 132 L
Potassium 3.5
Chloride 95 L
Carbon Dioxide 30
BUN 22 H
Creatinine 1.0
Glucose 173 H
Calcium 8.4
Vital Signs:
Vital Signs
Temp Pulse Resp BP Pulse Ox
97.8 F 84 20 133/68 98
08/12/23 11:28 08/12/23 08:56 08/12/23 11:28 08/12/23 08:56 08/12/23 11:28
I&O
08/11/23 08/12/23 08/13/23
06:59 06:59 06:59
Intake Total 240 / 240
Output Total 2315 / 2315 1855 / 1855
Balance -2315 / -2315 -1615 / -1615
Review of Systems
-
Respiratory: Reports No Symptoms
Cardiac: Reports No Symptoms
Abdomen/GI: Reports No Symptoms
Physical Exam
-
General: Obese
HEENT: Negative Oxygen
Respiratory: Clear to Auscultation and Non Labored Respirations; Negative Wheezes
Cardiac: Regular Rhythm, S1/S2 and Rub; Negative Murmur
GI: Soft, Nontender and Nondistended
Skin: Other (Diffuse echymosis, right leg GEORGE drain in place, JACIEL wrap in place)
Neuro: Awake, Alert, Oriented and AO x 3
Psych: Calm and Intact Judgement/Insight
--- NOTE | 2023-08-12 16:23 | CM ---
Reviewed chart. Met with Miss Rojas to review discharge plans. Telephone call to [facility] Admission to update them and ask if they can manage [facility]. Sent updated clinical information to [facility]. Will need to pre-cert
with her insurance. Medical work-up in progress. The discharge plan is to go to SNF/Rehab-hopefully [facility] if bed available and approved by insurance.
[2023-08-12 17:16] LABS: Glucose - Point of Care 190 mg/dl (70-99)
[2023-08-12] MEDS: COUMADIN 5 MG PO (17:30)
--- NOTE | 2023-08-12 17:41 | PTCARENOTE ---
Dr Mcneal in this am and changed right lower leg dressing. GEORGE drains A and B intact and draining sanguineous drainage. Pt had mild leg pain which is relieved with tylenol. OOB to the recliner chair with 1 assist and the walker. Remains in Afib in the
70's to 80's. IV heparin infusing as ordered.
[2023-08-12] MEDS: TYLENOL 650 MG PO (18:15)
[2023-08-12 18:42] LABS: APTT 93.8 Sec (23.4-35.0)
--- NOTE | 2023-08-12 21:40 | PTCARENOTE ---
moderate bloody drainage around bonita insertion site- dressing reinforced
[2023-08-12 22:02] LABS: Glucose - Point of Care 177 mg/dl (70-99)
--- NOTE | 2023-08-12 23:59 | PTCARENOTE ---
ax3- afib controlled- bp wnl afebrile- 2 jps with sanguineous drainage- leaking at bonita insertion site stopped after being reinforced with dressing. pt was oob on chair and assisted back to bed after having a bm in bathroom- currently resting in bed
with call javier in reach- placed her own cpap on -
[2023-08-13 00:52] LABS: APTT 101.6 Sec (23.4-35.0)
[2023-08-13] MEDS: DESENEX/MITRAZOL/ZEASORB 1 APPLIC TOPICAL ×3 (03:10→22:00)
[2023-08-13] MEDS: HEPARIN 25000 UNITS/250 ML IV (03:10)
[2023-08-13] MEDS: TYLENOL 650 MG PO ×2 (03:24→18:12)
[2023-08-13 04:05] LABS: Hematocrit 23.1 % (37.0-47.0); Hemoglobin 7.6 g/dL (12.0-16.0); Mean Corp Hgb Conc. 32.9 g/dL (33.0-37.0); Mean Corpuscular Hgb 31.1 pg (27.0-31.0); Mean Corpuscular Volume 94.7 fL (81.0-99.0); Mean Platelet Volume 9.9 fL (7.4-10.4); Platelet Count 189 10^3/uL (130-400); Red Blood Cell Count 2.44 10^6/uL (4.20-5.40); White Blood Cell Count 9.7 10^3/uL (4.8-10.8)
[2023-08-13 04:11] VITALS: BP 129/59; BMI 44.1
[2023-08-13 04:18] LABS: INR 1.91; PT 22.1 Sec (11.4-14.6)
[2023-08-13 04:21] LABS: APTT 131.3 Sec (23.4-35.0)
[2023-08-13 04:27] LABS: Blood Urea Nitrogen 20 mg/dl (7-17); Calcium 8.2 mg/dl (8.4-10.2); Carbon Dioxide 33 mmol/L (22-30); Chloride 94 mmol/L (98-107); Estimated Creatinine Clearance 51 ml/min; Glucose 140 mg/dl (70-99); Potassium 3.5 mmol/L (3.5-5.1); Sodium 132 mmol/L (135-145); eGFR 54.06
--- NOTE | 2023-08-13 05:37 | W.PN.UPDATE ---
Update Note
Progress Note Update
s/p MVR, TV band, MAZE 06/30/23, now readmitted for HF exacerbation.
POD 4 from RLE spontaneous hematoma on therapeutic lovenox evacuation by vascular surgery
hgb relatively stable on hep gtt. begin coumadin once cleared by vascular.
we will continue to follow peripherally. Please call with questions/concerns.
Vital Signs / Labs
-
Vital Signs and Labs:
Temp Pulse Resp BP Pulse Ox
98.2 F 89 20 129/59 98
08/13/23 04:11 08/13/23 04:11 08/13/23 04:11 08/13/23 04:11 08/13/23 04:11
08/13/23 03:18
08/13/23 03:18
08/12/23 08/12/23 08/12/23
07:06 12:03 12:09
RBC
Hgb
Hct
MCH
MCHC
RDW
PT
APTT 115.8 H
Sodium
Chloride
Carbon Dioxide
BUN
Creatinine
Glucose
Calcium
POC Glucose 163 H 211 H
08/12/23 08/12/23 08/12/23
17:16 18:19 22:01
RBC
Hgb
Hct
MCH
MCHC
RDW
PT
APTT 93.8 H
Sodium
Chloride
Carbon Dioxide
BUN
Creatinine
Glucose
Calcium
POC Glucose 190 H 177 H
08/13/23 08/13/23
00:19 03:18
RBC 2.44 L
Hgb 7.6 L
Hct 23.1 L
MCH 31.1 H
MCHC 32.9 L
RDW 16.0 H
PT 22.1 H
APTT 101.6 H 131.3 H
Sodium 132 L
Chloride 94 L
Carbon Dioxide 33 H
BUN 20 H
Creatinine 1.1 H
Glucose 140 H
Calcium 8.2 L
POC Glucose
[2023-08-13 07:01] VITALS: BP 131/58
[2023-08-13] MEDS: NOVOLOG FLEXPEN-LOW RESISTANCE 1 UNITS SC (07:49)
[2023-08-13] MEDS: PACERONE 200 MG PO (07:50)
[2023-08-13] MEDS: METAMUCIL, KONSYL 1 PACKET PO (07:50)
[2023-08-13] MEDS: KLOR-CON 40 MEQ PO ×2 (07:51→20:04)
[2023-08-13] MEDS: COREG 6.25 MG PO ×2 (07:52→20:03)
[2023-08-13] MEDS: PROTONIX 40 MG PO (07:52)
[2023-08-13] MEDS: LASIX 80 MG PO ×2 (07:53→20:04)
[2023-08-13] MEDS: LOW STRENGTH ASPIRIN 81 MG PO (07:53)
[2023-08-13] MEDS: RESTASIS 0.05% OPHTHALMIC EMULSION 1 DROPS OPHTH ×2 (07:53→20:04)
[2023-08-13] MEDS: MIRALAX PO (07:54)
[2023-08-13] MEDS: NORVASC 7.5 MG PO (07:54)
[2023-08-13 07:57] LABS: Glucose - Point of Care 183 mg/dl (70-99)
--- NOTE | 2023-08-13 08:45 | PTCARENOTE ---
Assumed care of pt from night RN. Pt received awake and alert, Ox3. VSS, CM shows AF80-90's, POX 97% on RA. Heparin drip infusing through Right PICC at 800 u/hr, next PTT due at 1200. Right lower leg wound remains stable, wrapped in pam wrap toe
to thigh. GEORGE's intact with minimal serous drg. Pt denies any pain or discomfort at this time. Will continue to monitor closely.
[2023-08-13 11:41] VITALS: BP 100/88
[2023-08-13 12:54] LABS: Glucose - Point of Care 227 mg/dl (70-99)
[2023-08-13] MEDS: NOVOLOG FLEXPEN-LOW RESISTANCE 2 UNITS SC ×2 (12:56→18:11)
[2023-08-13 13:17] LABS: APTT > 200.0 Sec (23.4-35.0)
[2023-08-13 14:05] LABS: APTT 68.6 Sec (23.4-35.0)
[2023-08-13] MEDS: HEPARIN 4100 UNITS IV (14:29)
--- NOTE | 2023-08-13 14:40 | PTCARENOTE ---
PTT at 1200 resulted >200. Heparin stopped x 10 minutes and re-drawn, result now 68.6; Pt bolused with 4100 units and drip increased to 1,00units as per APR.
--- NOTE | 2023-08-13 15:11 | PN.CDI ---
CDI
- -
CDI:
Physician Documentation Request
Admit Date: 08/01/23 22:56
Dear Doctor Chacorta,
Laboratory Tests
08/08/23 08/08/23 08/09/23
03:41 19:36 05:16
Sodium 133 L 131 L 133 L
08/10/23 08/11/23 08/12/23
04:02 07:32 02:50
Sodium 134 L 133 L 132 L
Based on the above, could you clarify in the progress notes, the appropriate diagnosis, if significant, that supports the above abnormalities and additional evaluation, monitoring and/or treatment rendered:
Hyponatremia
Abnormal lab values insignificant
Other
Use of terms such as suspected, likely, concern for, or probable (associated with a specific diagnosis that is being evaluated, monitored, or treated as if it exists) are acceptable and can be coded in the inpatient setting, when documented at the
time of discharge.
Thank you,
Mari Abarca RN, BSN
CDI Specialist
Available via [facility] text
Please use your independent medical judgment in providing your response.
[2023-08-13 15:24] VITALS: BP 128/65
[2023-08-13 16:13] LABS: PT 34.9 Sec (11.4-14.6)
--- NOTE | 2023-08-13 16:58 | PTCARENOTE ---
INR 3.4, Heparin gtt discontinued. Assessment unchanged. Pt OOB to chair, call javier in reach.
--- NOTE | 2023-08-13 17:05 | W.PN.HOSP.TC ---
Today's Communication/Plan
-
see note
Assessment / Plan
Assessment / Plan
A/P: Patient is a 67y F with PMH significant for A-Fib, Obesity, HTN, HLD, DM-II, HFmrEF, valvular heart dz, cardiothoracic surgery, DVT/PE, Endometrial Ca s/p resection/XRT, transferred from [facility] to for evaluation of CHF and possible
endocarditis.
Acute Hypoxemic Respiratory Insufficiency - resolved
Bilateral pleural effusion
-Presumed heart failure exacerbation
-CXR 08/04/23 with b/l Pleural effusion.
-S/p right thoracentesis 08/05/2023 with removal of 500 cc serosanguineous pleural fluid,
-S/p left thoracentesis 08/06/2023 with removal of 400 cc serosanguineous pleural fluid,
Acute hematoma of RLE
- Spontaneous large, tense hematoma of right calf, most likely caused by Lovenox anticoagulation.
- Stop Lovenox.
- S/p urgent washout/evacuation hematoma (Dr. Chowdhury) POD #2
- S/p 2 U FFP and 5 U PRBC this admit
- Repeat washout if continued drainage or bleeding per vascular.
- Vascular surgery appreciated.
- warfarin loading ongoing and got 5mg > 1.17 > 5mg > 1.91 and recheck in afternoon jumped again to 3.4! No further warfain dose today and heparin disconitnued
- Patient obviously quite sensitive to warfarin and will need to started back much lower dose once INR back in range.
Anemia of blood loss
- Patient had anemia of chronic disease with added anemia for blood loss
- Hbg stable at this point, continue monitor
Staph epidermidis Bacteremia
- Coagulase-negative staph identified from culture 08/01,
- Continue empiric vancomycin per ID.
- Patient afebrile, vital stable.
- KARL/TTE negative for endocarditis
- ID recs appreciated
Acute on Chronic HFmrEF
-on PO lasix 80mg twice daily.
-Coreg increased from 3.125-6.25
-Sternal precautions lifted, up and walking around as tolerated.
-Cardiology eval appreciated
Constipation
- Resolved
- Milk and molasses PRN
Metabolic alkalosis
- Most likely due to dehydration given BUN/creatinine level.
Persistent Atrial Fibrillation
- s/p MAZE and HARVINDER exclusion on 06/29.
- Amiodarone previously increased by cardiology to 200 mg BID due to persistent A-fib to restore sinus rhythm, QTc prolonged to 516 MS, amiodarone currently reduced back to 200 mg daily. Patient unwilling to inject Lovenox outpatient, hematology to
determine anticoagulation plan for outpatient.
- Outpatient cardioversion planned, however anticoagulation has to be determined first per cardiology.
- Continue labetalol, carvedilol and amiodarone.
- Minimize/avoid use of QT prolonging agents as possible.
- Follow-up outpatient with primary dance historian Dr. Hiren Peters of [facility]
DM-II
- Stable. Hold oral agents for now.
- SSI coverage as needed.
Bilateral LE DVT
History of DVT / PE
- Patient noted on US to have bilateral femoral DVTs at [facility] (07/27).
- currently off anticoagulation due to right leg hematoma
- Patient was on pradaxa at the time and with bleeding from anti Xa meds, warfarin recommended,
LIZBETH on CPAP continued
Morbid Obesity due to excess calories
- Affects all aspects of care.
- Encourage healthy diet and increased activity when able with goal of weight reduction.
Acute urinary retention
indwelling ford catheter
- Patient arrives at with Ford catheter in place. This was placed at [facility], presumably for I/O determination.
- Maintain Ford for now.
- Eventual trial of void prior to discharge
DVT Prophylaxis: Hold Lovenox
Code Status: Full
Anticipated Discharge: > 48 hours
Subjective/Interval History
-
Date of Service: August 13, 2023
no reported problems overnight
Objective Data
-
Labs:
Laboratory Results
08/13/23 08/13/23 08/13/23
12:01 13:34 15:46
PT 34.9 H
INR 3.40
APTT > 200.0 H* 68.6 H
08/13/23
20:30
PT
INR
APTT Pending
Vital Signs:
Vital Signs
Temp Pulse Resp BP Pulse Ox
98.9 F 88 18 128/65 98
08/13/23 15:26 08/13/23 15:24 08/13/23 15:26 08/13/23 15:24 08/13/23 15:26
I&O
08/12/23 08/13/23 08/14/23
06:59 06:59 06:59
Intake Total 240 / 240 240 / 240
Output Total 1855 / 1855 1865 / 1865 600 / 600
Balance -1615 / -1615 -1625 / -1625 -600 / -600
Review of Systems
-
Respiratory: Reports No Symptoms
Cardiac: Reports No Symptoms
Abdomen/GI: Reports No Symptoms
Physical Exam
-
General: Obese
HEENT: Negative Oxygen
Respiratory: Clear to Auscultation and Non Labored Respirations; Negative Wheezes
Cardiac: Regular Rhythm, S1/S2 and Rub; Negative Murmur
GI: Soft, Nontender and Nondistended
Skin: Other (Diffuse echymosis, right leg GEORGE drain in place, JACIEL wrap in place)
Neuro: Awake, Alert, Oriented and AO x 3
Psych: Calm and Intact Judgement/Insight
--- NOTE | 2023-08-13 17:18 | W.PN.VS ---
Addendum entered and electronically signed by Mynor Chowdhury MD 08/13/23 17:27:
Seen and examined with PRESTON Rodgers. Agree with findings as noted below. Right calf is soft but slightly nichols than it was before. She cut off saw tender metal. She is therapeutic on anticoagulation. Continue to observe for today given slightly more full and
slightly more tender. If stable tomorrow and hemoglobin stable and no further signs of bleeding then likely okay for discharge tomorrow with persistent drains in place. If however there is any increased fullness in the leg or hemoglobin drop
further, would consider further imaging and then potential repeat washout if needed. (However I think this would be high risk given her INR is therapeutic again and her risks of persistent bleeding).
Original Note:
Today's Communication / Plan
-
Patient seen and examined at bedside with Dr. Mynor Chowdhury below plan reviewed with attending
Assessment/Plan
-
Postoperative day # 5
�Continue compression dressing, changed by vascular surgery team
�Out of bed/ambulate
-Continue PT
� Okay from a vascular surgery standpoint to continue with p.o. Coumadin
Subjective Data
-
Date of Service: August 13, 2023
Patient seen and examined at chair side, continues report improvement in right lower extremity calf pain. Does endorse pain with palpation. Denies decreased motor or sensory function.
Objective Data
-
Vital Signs
Temp Pulse Resp BP Pulse Ox
98.9 F 88 18 128/65 98
08/13/23 15:26 08/13/23 15:24 08/13/23 15:26 08/13/23 15:24 08/13/23 15:26
Intake and Output
08/12/23 08/13/23 08/14/23
06:59 06:59 06:59
Intake Total 240 / 240 240 / 240
Output Total 1855 / 1855 1865 / 1865 600 / 600
Balance -1615 / -1615 -1625 / -1625 -600 / -600
Intake:
Oral fluids 240 / 240 240 / 240
Output:
Drain Output (Total) 55 / 55 65 / 65
Right Lower Leg Neri-Mcguire A 35 / 35 35 / 35
Right Lower Leg Neri-Mcguire B 20 / 20 30 / 30
Urine, Voided 1800 / 1800 1800 / 1800 600 / 600
Other:
How many times incontinent 3
SATURATED amount urine
Lab Results
08/13/23 03:18
08/13/23 03:18
Calcium 8.2 mg/dl (8.4-10.2) L 08/13/23 03:18
Phosphorus 5.1 mg/dl (2.5-4.5) H 08/09/23 05:16
Magnesium 2.0 mg/dl (1.6-2.3) 08/11/23 07:32
Total Bilirubin 0.7 mg/dl (0.2-1.3) 08/02/23 05:50
Direct Bilirubin 0.4 mg/dl (0.0-0.4) 08/02/23 05:50
AST 20 U/L (14-36) 08/02/23 05:50
ALT 12 U/L (0-35) 08/02/23 05:50
Alkaline Phosphatase 68 U/L (38-126) 08/02/23 05:50
Total Protein Cancelled 08/05/23 05:47
Albumin 2.6 g/dl (3.5-5.0) L 08/02/23 05:50
Physical Exam
-
AAOx3
No tachypnea on room air
No tachycardia
Right calf dressings all removed, calf is soft/compressible, but slightly nichols compared to yesterday. JPs intact/stripped, some scant drainage noted around lateral GEORGE, both drains stripped
Blister on forefoot intact and redressed.
[2023-08-13 17:23] LABS: Glucose - Point of Care 226 mg/dl (70-99)
[2023-08-13 19:01] VITALS: BP 114/49
[2023-08-13] MEDS: HYDROCORTISONE 1% OINTMENT 1 APPLIC TOPICAL (22:01)
[2023-08-13 22:33] LABS: Glucose - Point of Care 220 mg/dl (70-99)
[2023-08-13 22:34] VITALS: BP 99/62
--- NOTE | 2023-08-13 23:18 | PTCARENOTE ---
Pt received at start of shift, HR Afib. Pt c/o raised rough bumpy skin on R lateral upper leg towards knee. Pt states this happens occasionally at home and that she uses OTC hydrocortisone cream to help relieve it. TT POWER GENERATION PLANT OPERATOR Dyan Delaney,
hydrocortisone cream ordered and administered - see MAR. GEORGE drains secured and sanguineous drainage noted.
[2023-08-14] VITALS (18 sets, daily range): BP systolic 103–155; BP diastolic 52–103; BMI 44.0
[2023-08-14 05:23] LABS: Mean Corp Hgb Conc. 33.3 g/dL (33.0-37.0); Mean Corpuscular Hgb 30.8 pg (27.0-31.0); Mean Corpuscular Volume 92.5 fL (81.0-99.0); Mean Platelet Volume 9.4 fL (7.4-10.4); Platelet Count 187 10^3/uL (130-400); Red Blood Cell Count 2.14 10^6/uL (4.20-5.40); Red Cell Dist. Width 15.8 % (11.5-14.5); White Blood Cell Count 6.8 10^3/uL (4.8-10.8)
[2023-08-14 05:29] LABS: INR 2.98; PT 31.4 Sec (11.4-14.6)
[2023-08-14 05:41] LABS: Hematocrit 19.8 % (37.0-47.0); Hemoglobin 6.6 g/dL (12.0-16.0)
[2023-08-14 05:48] LABS: Blood Urea Nitrogen 19 mg/dl (7-17); Calcium 8.4 mg/dl (8.4-10.2); Carbon Dioxide 34 mmol/L (22-30); Chloride 94 mmol/L (98-107); Estimated Creatinine Clearance 51 ml/min; Glucose 139 mg/dl (70-99); Potassium 3.7 mmol/L (3.5-5.1); Sodium 132 mmol/L (135-145); eGFR 54.06
[2023-08-14 07:23] LABS: Glucose - Point of Care 183 mg/dl (70-99)
[2023-08-14] MEDS: NOVOLOG FLEXPEN-LOW RESISTANCE 1 UNITS SC ×2 (08:37→18:16)
[2023-08-14] MEDS: DESENEX/MITRAZOL/ZEASORB 1 APPLIC TOPICAL ×2 (08:38→20:21)
[2023-08-14] MEDS: KLOR-CON 40 MEQ PO ×2 (08:38→20:19)
[2023-08-14] MEDS: METAMUCIL, KONSYL 1 PACKET PO (08:38)
[2023-08-14] MEDS: PROTONIX 40 MG PO (08:38)
[2023-08-14] MEDS: PACERONE 200 MG PO (08:38)
[2023-08-14] MEDS: HYDROCORTISONE 1% OINTMENT 1 APPLIC TOPICAL ×2 (08:38→20:20)
[2023-08-14] MEDS: COREG 6.25 MG PO ×2 (08:39→20:18)
[2023-08-14] MEDS: NORVASC 7.5 MG PO (08:39)
[2023-08-14] MEDS: LASIX 80 MG PO ×2 (08:39→20:16)
[2023-08-14] MEDS: LOW STRENGTH ASPIRIN 81 MG PO (08:39)
[2023-08-14] MEDS: MIRALAX PO (08:41)
[2023-08-14] MEDS: RESTASIS 0.05% OPHTHALMIC EMULSION 1 DROPS OPHTH ×2 (08:41→20:19)
[2023-08-14] MEDS: TYLENOL 650 MG PO ×3 (10:03→22:57)
--- NOTE | 2023-08-14 10:08 | PTCARENOTE ---
Pt continues to be Afib on the monitor, hr in the 80s, vss. pt c/o of pain in lower right leg at surgical site. Tylenol given as ordered, see mar. blood hanging per protocol, see documentation. pt resting in bed comfortably. call javier within reach.
[2023-08-14 12:09] LABS: Glucose - Point of Care 250 mg/dl (70-99)
--- NOTE | 2023-08-14 13:20 | W.PN.VS ---
Addendum entered and electronically signed by Devin Pena III, MD 08/14/23 14:25:
This patient was seen and examined with TELMA Khalil. I agree with the history and physical exam as well as the assessment and plan.
Signed:
Devin Pena III, MD
[facility] Vascular Surgery
[phone] (pdeo)
Original Note:
Today's Communication / Plan
-
Patient seen and examined at bedside with Dr. Devin Pena III, below plan reviewed with attending.
Assessment/Plan
-
Postoperative day # 6
�Continue compression dressing as tolerated, patient currently requesting to have Benton wrap removed for brief time, this is okay but recommend rewrapping as soon as she is agreeable, will place dressing orders
�Out of bed/ambulate
-Continue PT
� Given patient has a decrease in hemoglobin today would not recommend discharge today, would favor additional day of observation. However, right calf remains soft and continued minimal GEORGE outputs, thus no indication for surgical invention at this
time.
Subjective Data
-
Date of Service: August 14, 2023
Patient seen and examined at bedside, reports intermittent discomfort at heel of foot but vast improvement with Benton wrap removed. Denies nausea, vomiting, fever, and chills.
Objective Data
-
Vital Signs
Temp Pulse Resp BP Pulse Ox
98.5 F 83 20 115/69 96
08/14/23 11:31 08/14/23 11:31 08/14/23 11:31 08/14/23 10:02 08/14/23 11:31
Intake and Output
08/13/23 08/14/23 08/15/23
06:59 06:59 06:59
Intake Total 240 / 240 240 / 240 0 / 0
Output Total 1865 / 1865 1955
Balance -1625 / -1625 -1716 / -1716 0 / 0
Intake:
Oral fluids 240 / 240 240 / 240
Blood Product Amount Infused ( 0 / 0
mL)
Packed Rbc Leukoreduced Unit 0 / 0
[id number]
Output:
Drain Output (Total) 65 / 65 56 / 56
Right Lower Leg Neri-Mcguire A 35 / 35 45 / 45
Right Lower Leg Neri-Mcguire B 30 30
Urine, Voided 1800 / 1800 1900 / 1900
Other:
Number of approximated MODERATE 1
amounts of urine
How many times incontinent 3
SATURATED amount urine
Lab Results
08/14/23 05:12
08/14/23 05:12
Calcium 8.4 mg/dl (8.4-10.2) 08/14/23 05:12
Phosphorus 5.1 mg/dl (2.5-4.5) H 08/09/23 05:16
Magnesium 2.0 mg/dl (1.6-2.3) 08/11/23 07:32
Total Bilirubin 0.7 mg/dl (0.2-1.3) 08/02/23 05:50
Direct Bilirubin 0.4 mg/dl (0.0-0.4) 08/02/23 05:50
AST 20 U/L (14-36) 08/02/23 05:50
ALT 12 U/L (0-35) 08/02/23 05:50
Alkaline Phosphatase 68 U/L (38-126) 08/02/23 05:50
Total Protein Cancelled 08/05/23 05:47
Albumin 2.6 g/dl (3.5-5.0) L 08/02/23 05:50
Physical Exam
-
AAOx3
No tachypnea on room air
No tachycardia
Right calf dressings all removed, calf is soft/compressible, improving from previous exam. JPs intact/stripped, no drainage noted at either GEORGE site
Blister on forefoot intact and redressed.
Right foot Doppler PT and DP signal
[2023-08-14] MEDS: NOVOLOG FLEXPEN-LOW RESISTANCE 3 UNITS SC (13:45)
--- NOTE | 2023-08-14 14:43 | CM ---
Reviewed chart. Miss Rojas is nit ready for transfer to [facility] today. Telephone call to [facility] Admissions to update them. [place] Admission states the next available bed is Friday August 18, 2023. She will need pre-cert
with her insurance for SNF/Rehab. Met with Miss Rojas to review discharge plans. Medical work-up in progress. The discharge plan is to go to SNF/Rehab. -hopefully at [facility] if bed available and approved by her insurance when
medically stable.
--- NOTE | 2023-08-14 14:44 | W.PN.HOSP.TC ---
Today's Communication/Plan
-
transfuse 1 u prbc
resume oral diabetes meds
hold warfarin
check inr in am again
Assessment / Plan
Assessment / Plan
A/P: Patient is a 67y F with PMH significant for A-Fib, Obesity, HTN, HLD, DM-II, HFmrEF, valvular heart dz, cardiothoracic surgery, DVT/PE, Endometrial Ca s/p resection/XRT, transferred from [facility] to for evaluation of CHF and possible
endocarditis.
Acute Hypoxemic Respiratory Insufficiency - resolved
Bilateral pleural effusion
-Presumed heart failure exacerbation
-CXR 08/04/23 with b/l Pleural effusion.
-S/p right thoracentesis 08/05/2023 with removal of 500 cc serosanguineous pleural fluid,
-S/p left thoracentesis 08/06/2023 with removal of 400 cc serosanguineous pleural fluid,
Acute hematoma of RLE
- Spontaneous large, tense hematoma of right calf, most likely caused by Lovenox anticoagulation.
- Stop Lovenox.
- S/p urgent washout/evacuation hematoma (Dr. Chowdhury) on 08/07
- S/p 2 U FFP and 6 U PRBC this admit
- Repeat washout if continued drainage or bleeding per vascular.
- Vascular surgery appreciated.
- warfarin loading ongoing and got 5mg > 1.17 > 5mg > 1.91 and recheck in afternoon jumped again to 3.4!
- INR down to 2.98 today. warfarin remains on hold. will plan next dose based on INR tomorrow
- Patient obviously quite sensitive to warfarin and will need to started back much lower dose once INR back in range.
Anemia of blood loss
- Patient had anemia of chronic disease with added anemia for blood loss
- Hbg 6.6 today, giving 1 u prbc , recheck in afternoon today
Staph epidermidis Bacteremia
- Coagulase-negative staph identified from culture 08/01,
- Patient afebrile, vital stable.
- KARL/TTE negative for endocarditis
- Patient off antibiotics at this point.
Acute on Chronic HFmrEF
-on PO lasix 80mg twice daily.
-Coreg increased from 3.125-6.25
-Sternal precautions lifted, up and walking around as tolerated.
-Cardiology eval appreciated
Constipation
- Resolved
- Milk and molasses PRN
Metabolic alkalosis
- Most likely due to dehydration given BUN/creatinine level.
Persistent Atrial Fibrillation
- s/p MAZE and HARVINDER exclusion on 06/29.
- Amiodarone previously increased by cardiology to 200 mg BID due to persistent A-fib to restore sinus rhythm, QTc prolonged to 516 MS, amiodarone currently reduced back to 200 mg daily. Patient unwilling to inject Lovenox outpatient, hematology to
determine anticoagulation plan for outpatient.
- Outpatient cardioversion planned, however anticoagulation has to be determined first per cardiology.
- Continue labetalol, carvedilol and amiodarone.
- Minimize/avoid use of QT prolonging agents as possible.
- Follow-up outpatient with primary motor generator set operator Dr. Hiren Peters of [facility]
DM-II
- Stable. repaglinide to be resumed
- SSI coverage as needed.
Bilateral LE DVT
History of DVT / PE
- Patient noted on US to have bilateral femoral DVTs at [facility] (07/27).
- currently off anticoagulation due to right leg hematoma
- Patient was on pradaxa at the time and with bleeding from anti Xa meds, warfarin recommended,
LIZBETH on CPAP continued
Morbid Obesity due to excess calories
- Affects all aspects of care.
- Encourage healthy diet and increased activity when able with goal of weight reduction.
Acute urinary retention
indwelling ford catheter
- Patient arrives at with Ford catheter in place. This was placed at [facility], presumably for I/O determination.
- Maintain Ford for now.
- Eventual trial of void prior to discharge
DVT Prophylaxis: Hold Lovenox
Code Status: Full
Anticipated Discharge: Within 24 hours
Subjective/Interval History
-
Date of Service: August 14, 2023
patient having some discomfort in RLE
denies of having abd pain/nausea/vomiting issues
no reported blood in stool/black stool
Objective Data
-
Labs:
Laboratory Results
08/14/23
05:12
WBC 6.8
Hgb 6.6 L*
Hct 19.8 L*
Plt Count 187
PT 31.4 H
INR 2.98
Sodium 132 L
Potassium 3.7
Chloride 94 L
Carbon Dioxide 34 H
BUN 19 H
Creatinine 1.1 H
Glucose 139 H
Calcium 8.4
Vital Signs:
Vital Signs
Temp Pulse Resp BP Pulse Ox
98.3 F 87 18 109/92 96
08/14/23 13:21 08/14/23 13:21 08/14/23 13:21 08/14/23 13:21 08/14/23 11:31
I&O
08/13/23 08/14/23 08/15/23
06:59 06:59 06:59
Intake Total 240 / 240 240 / 240 250 / 250
Output Total 1865 / 1865 195 / 1955 450 / 450
Balance -1625 / -1625 -1716 / -1716 -200 / -200
Review of Systems
-
Respiratory: Reports No Symptoms
Cardiac: Reports No Symptoms
Abdomen/GI: Reports No Symptoms
Physical Exam
-
General: Obese
HEENT: Negative Oxygen
Respiratory: Clear to Auscultation and Non Labored Respirations; Negative Wheezes
Cardiac: Regular Rhythm, S1/S2 and Rub; Negative Murmur
GI: Soft, Nontender and Nondistended
Skin: Other (Diffuse echymosis, right leg GEORGE drain in place, JACIEL wrap in place)
Neuro: Awake, Alert, Oriented and AO x 3
Psych: Calm and Intact Judgement/Insight
[2023-08-14 15:17] LABS: Hematocrit 25.8 % (37.0-47.0)
[2023-08-14 15:21] LABS: Hemoglobin 8.3 g/dL (12.0-16.0)
--- NOTE | 2023-08-14 16:15 | PTCARENOTE ---
report called and pt transferred to 4th floor with belongings from room.
--- NOTE | 2023-08-14 17:00 | PTCARENOTE ---
Received patient from IVU on stretcher. Patient assisted onto bed from stretcher. Placed on Distribution Driver #[id number] - A-Fib on monitor.
Assessment completed and documented in shift assessment.
[2023-08-14 17:45] LABS: Glucose - Point of Care 187 mg/dl (70-99)
[2023-08-14] MEDS: PRANDIN PO ×2 (18:15→18:24)
[2023-08-14 21:17] LABS: Glucose - Point of Care 239 mg/dl (70-99)
[2023-08-14] MEDS: MELATONIN 3 MG PO (22:57)
[2023-08-15] VITALS (7 sets, daily range): BP systolic 96–148; BP diastolic 63–68; PULSE 80; O2SAT 98; BMI 44.2
[2023-08-15 06:10] LABS: INR 2.61; PT 27.8 Sec (11.4-14.6)
[2023-08-15 06:29] LABS: ALT (SGPT) 13 U/L (0-35); AST (SGOT) 20 U/L (14-36); Albumin 3.2 g/dl (3.5-5.0); Alkaline Phosphatase 74 U/L (38-126); Blood Urea Nitrogen 23 mg/dl (7-17); Calcium 8.4 mg/dl (8.4-10.2); Carbon Dioxide 31 mmol/L (22-30); Chloride 95 mmol/L (98-107); Estimated Creatinine Clearance 51 ml/min; Glucose 168 mg/dl (70-99); Potassium 3.8 mmol/L (3.5-5.1); Sodium 133 mmol/L (135-145); Total Bilirubin 0.9 mg/dl (0.2-1.3); Total Protein 5.6 g/dl (6.3-8.2); eGFR 54.06
[2023-08-15 07:37] LABS: Glucose - Point of Care 191 mg/dl (70-99)
[2023-08-15] MEDS: PROTONIX 40 MG PO (08:03)
[2023-08-15] MEDS: METAMUCIL, KONSYL 1 PACKET PO (08:03)
[2023-08-15] MEDS: MIRALAX PO (08:03)
[2023-08-15] MEDS: LOW STRENGTH ASPIRIN 81 MG PO (08:04)
[2023-08-15] MEDS: COREG 6.25 MG PO ×2 (08:04→20:44)
[2023-08-15] MEDS: KLOR-CON 40 MEQ PO ×2 (08:04→20:43)
[2023-08-15] MEDS: PRANDIN 1 MG PO ×3 (08:05→17:57)
[2023-08-15] MEDS: NORVASC 7.5 MG PO (08:07)
[2023-08-15] MEDS: LASIX 80 MG PO (08:07)
[2023-08-15] MEDS: NOVOLOG FLEXPEN-LOW RESISTANCE 1 UNITS SC ×2 (08:09→12:16)
[2023-08-15] MEDS: DESENEX/MITRAZOL/ZEASORB 1 APPLIC TOPICAL ×2 (08:10→20:48)
[2023-08-15] MEDS: PACERONE 200 MG PO (08:11)
[2023-08-15] MEDS: HYDROCORTISONE 1% OINTMENT 1 APPLIC TOPICAL ×2 (08:11→20:48)
[2023-08-15] MEDS: RESTASIS 0.05% OPHTHALMIC EMULSION 1 DROPS OPHTH ×2 (08:12→20:44)
--- NOTE | 2023-08-15 11:09 | W.PN.HOSP.TC ---
Today's Communication/Plan
-
see note
Assessment / Plan
Assessment / Plan
A/P: Patient is a 67y F with PMH significant for A-Fib, Obesity, HTN, HLD, DM-II, HFmrEF, valvular heart dz, cardiothoracic surgery, DVT/PE, Endometrial Ca s/p resection/XRT, transferred from [facility] to for evaluation of CHF and possible
endocarditis.
Acute Hypoxemic Respiratory Insufficiency - resolved
Bilateral pleural effusion
-Presumed heart failure exacerbation
-CXR 08/04/23 with b/l Pleural effusion.
-S/p right thoracentesis 08/05/2023 with removal of 500 cc serosanguineous pleural fluid,
-S/p left thoracentesis 08/06/2023 with removal of 400 cc serosanguineous pleural fluid,
Acute hematoma of RLE
- Spontaneous large, tense hematoma of right calf, most likely caused by Lovenox anticoagulation.
- Stop Lovenox.
- S/p urgent washout/evacuation hematoma (Dr. Chowdhury) on 08/07
- S/p 2 U FFP and 6 U PRBC this admit
- Repeat washout if continued drainage or bleeding per vascular.
- Vascular surgery appreciated.
- warfarin loading ongoing and got 5mg > 1.17 > 5mg > 1.91 and recheck in afternoon jumped again to 3.4!
- Patient obviously quite sensitive to warfarin and will need to started back much lower dose once INR back in range.
- INR down to 2.6 today, f/u IN AM and may start on warfarin again
Anemia of blood loss
- Patient had anemia of chronic disease with added anemia for blood loss
- Hbg 8.3 yesterday, recheck in the morning
Staph epidermidis Bacteremia
- Coagulase-negative staph identified from culture 08/01,
- Patient afebrile, vital stable.
- KARL/TTE negative for endocarditis
- Patient off antibiotics at this point.
Acute on Chronic HFmrEF
-on PO lasix 80mg twice daily.
-Coreg increased from 3.125-6.25
-Sternal precautions lifted, up and walking around as tolerated.
-some dyspnea today, not hypoxic, will give one dose IV lasix 80mg in evening today
Constipation
- Resolved
- Milk and molasses PRN
Metabolic alkalosis
- Most likely due to dehydration given BUN/creatinine level.
Persistent Atrial Fibrillation
- s/p MAZE and HARVINDER exclusion on 06/29.
- Amiodarone previously increased by cardiology to 200 mg BID due to persistent A-fib to restore sinus rhythm, QTc prolonged to 516 MS, amiodarone currently reduced back to 200 mg daily. Patient unwilling to inject Lovenox outpatient, hematology to
determine anticoagulation plan for outpatient.
- Outpatient cardioversion planned, however anticoagulation has to be determined first per cardiology.
- Continue labetalol, carvedilol and amiodarone.
- Minimize/avoid use of QT prolonging agents as possible.
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 Hiren Peters of [facility]
DM-II
- Stable. repaglinide to be resumed
- SSI coverage as needed.
Bilateral LE DVT
History of DVT / PE
- Patient noted on US to have bilateral femoral DVTs at [facility] (07/27).
- currently off anticoagulation due to right leg hematoma
- Patient was on pradaxa at the time and with bleeding from anti Xa meds, warfarin recommended,
LIZBETH on CPAP continued
Morbid Obesity due to excess calories
- Affects all aspects of care.
- Encourage healthy diet and increased activity when able with goal of weight reduction.
Acute urinary retention
indwelling ford catheter
- Patient arrives at with Ford catheter in place. This was placed at [facility], presumably for I/O determination.
- ford is out at this point
DVT Prophylaxis: warfarin
Code Status: Full
Anticipated Discharge: > 48 hours
Subjective/Interval History
-
Date of Service: August 15, 2023
complaining some heavy breathing and chest tightness
no reported bleeding issues
Objective Data
-
Labs:
Laboratory Results
08/15/23
05:32
PT 27.8 H
INR 2.61
Sodium 133 L
Potassium 3.8
Chloride 95 L
Carbon Dioxide 31 H
BUN 23 H
Creatinine 1.1 H
Glucose 168 H
Calcium 8.4
Total Bilirubin 0.9
AST 20
ALT 13
Alkaline Phosphatase 74
Vital Signs:
Vital Signs
Temp Pulse Resp BP Pulse Ox
98.1 F 82 16 138/65 97
08/15/23 07:04 08/15/23 08:04 08/15/23 07:04 08/15/23 08:04 08/15/23 07:04
I&O
08/14/23 08/15/23 08/16/23
06:59 06:59 06:59
Intake Total 240 / 240 1820 / 1820
Output Total 1955 / 1955 1485 / 1485
Balance -1716 / -1716 335 / 335
Review of Systems
-
Respiratory: Reports Trouble Breathing; Denies Cough
Cardiac: Reports Chest Pain
Abdomen/GI: Reports No Symptoms
Physical Exam
-
General: Obese
HEENT: Negative Oxygen
Respiratory: Clear to Auscultation and Non Labored Respirations; Negative Wheezes
Cardiac: Regular Rhythm, S1/S2 and Rub; Negative Murmur
GI: Soft, Nontender and Nondistended
Skin: Other (right leg GEORGE drain in place, JACIEL wrap in place)
Neuro: Awake, Alert, Oriented and AO x 3
Psych: Calm and Intact Judgement/Insight
[2023-08-15 11:58] LABS: Glucose - Point of Care 177 mg/dl (70-99)
[2023-08-15] MEDS: NOVOLOG FLEXPEN-LOW RESISTANCE SC (17:56)
[2023-08-15] MEDS: LASIX 80 MG IV (17:56)
[2023-08-15 17:57] LABS: Glucose - Point of Care 92 mg/dl (70-99)
[2023-08-15] MEDS: TYLENOL 650 MG PO ×2 (18:15→23:57)
[2023-08-15 21:32] LABS: Glucose - Point of Care 126 mg/dl (70-99)
[2023-08-15] MEDS: MELATONIN 3 MG PO (23:57)
[2023-08-16] VITALS (8 sets, daily range): BP systolic 93–138; BP diastolic 58–84; BMI 43.8
[2023-08-16 06:18] LABS: Hematocrit 24.3 % (37.0-47.0); Hemoglobin 8.1 g/dL (12.0-16.0); Mean Corp Hgb Conc. 33.3 g/dL (33.0-37.0); Mean Corpuscular Hgb 30.1 pg (27.0-31.0); Mean Corpuscular Volume 90.3 fL (81.0-99.0); Mean Platelet Volume 8.8 fL (7.4-10.4); Platelet Count 200 10^3/uL (130-400); Red Blood Cell Count 2.69 10^6/uL (4.20-5.40); Red Cell Dist. Width 16.9 % (11.5-14.5); White Blood Cell Count 5.9 10^3/uL (4.8-10.8)
[2023-08-16 06:34] LABS: INR 2.11; PT 23.5 Sec (11.4-14.6)
[2023-08-16 06:42] LABS: Blood Urea Nitrogen 20 mg/dl (7-17); Calcium 8.7 mg/dl (8.4-10.2); Carbon Dioxide 30 mmol/L (22-30); Chloride 96 mmol/L (98-107); Estimated Creatinine Clearance 56 ml/min; Glucose 85 mg/dl (70-99); Potassium 3.4 mmol/L (3.5-5.1); Sodium 134 mmol/L (135-145); eGFR > 60.00
[2023-08-16] MEDS: NORVASC PO (07:38)
[2023-08-16] MEDS: PROTONIX 40 MG PO (07:42)
[2023-08-16] MEDS: KLOR-CON 40 MEQ PO ×2 (07:42→20:22)
[2023-08-16] MEDS: PRANDIN 1 MG PO ×3 (07:42→17:45)
[2023-08-16] MEDS: RESTASIS 0.05% OPHTHALMIC EMULSION 1 DROPS OPHTH ×2 (07:42→20:22)
[2023-08-16] MEDS: PACERONE 200 MG PO (07:42)
[2023-08-16] MEDS: LOW STRENGTH ASPIRIN 81 MG PO (07:42)
[2023-08-16] MEDS: MIRALAX 17 GRAMS PO (07:43)
[2023-08-16] MEDS: NOVOLOG FLEXPEN-LOW RESISTANCE SC ×3 (07:43→17:25)
[2023-08-16] MEDS: METAMUCIL, KONSYL 1 PACKET PO (07:43)
[2023-08-16] MEDS: DESENEX/MITRAZOL/ZEASORB 1 APPLIC TOPICAL ×2 (07:43→20:23)
[2023-08-16] MEDS: HYDROCORTISONE 1% OINTMENT 1 APPLIC TOPICAL ×2 (07:44→20:23)
[2023-08-16 07:45] LABS: Glucose - Point of Care 110 mg/dl (70-99)
[2023-08-16] MEDS: COREG 6.25 MG PO ×2 (09:40→20:22)
[2023-08-16] MEDS: LASIX 80 MG PO ×2 (09:40→20:22)
[2023-08-16 12:14] LABS: Glucose - Point of Care 123 mg/dl (70-99)
--- NOTE | 2023-08-16 14:03 | W.PN.HOSP.TC ---
Addendum entered and electronically signed by Norm Whatley MD 08/25/23 14:29:
Diagnosis added post discharge in response to pending CDI qyery:
Hyponatremia - mild and monitor
Original Note:
Today's Communication/Plan
-
warfarin 2.5mg today
f/u INR and hbg in AM
rehab bed Tu
Assessment / Plan
Assessment / Plan
A/P: Patient is a 67y F with PMH significant for A-Fib, Obesity, HTN, HLD, DM-II, HFmrEF, valvular heart dz, cardiothoracic surgery, DVT/PE, Endometrial Ca s/p resection/XRT, transferred from [facility] to for evaluation of CHF and possible
endocarditis.
Acute Hypoxemic Respiratory Insufficiency - resolved
Bilateral pleural effusion
-Presumed heart failure exacerbation
-CXR 08/04/23 with b/l Pleural effusion.
-S/p right thoracentesis 08/05/2023 with removal of 500 cc serosanguineous pleural fluid,
-S/p left thoracentesis 08/06/2023 with removal of 400 cc serosanguineous pleural fluid,
Acute hematoma of RLE
- Spontaneous large, tense hematoma of right calf, most likely caused by Lovenox anticoagulation.
- Stop Lovenox.
- S/p urgent washout/evacuation hematoma (Dr. Chowdhury) on 08/07
- S/p 2 U FFP and 6 U PRBC this admit
- Repeat washout if continued drainage or bleeding per vascular.
- Vascular surgery appreciated.
- warfarin loading ongoing and got 5mg > 1.17 > 5mg > 1.91 and recheck in afternoon jumped again to 3.4!
- Patient obviously quite sensitive to warfarin and will need to started back much lower dose once INR back in range.
- INR 2.11 today, giving warfarin 2.5mg one time dose in evening today
Anemia of blood loss
- Patient had anemia of chronic disease with added anemia for blood loss
- Hbg 8.1 today, continue monitor
Staph epidermidis Bacteremia - ruled out as contaminant
- Coagulase-negative staph identified from culture 08/01,
- KARL/TTE negative for endocarditis
- Patient off antibiotics at this point.
Acute on Chronic HFmrEF
-on PO lasix 80mg twice daily.
-Sternal precautions lifted, up and walking around as tolerated.
-Given IV lasix 80mg in evening of 08/14 for dyspnea
Constipation
- Resolved
- Milk and molasses PRN
Metabolic alkalosis
- Most likely due to dehydration given BUN/creatinine level.
Persistent Atrial Fibrillation
- s/p MAZE and HARVINDER exclusion on 06/29.
- Amiodarone previously increased by cardiology to 200 mg BID due to persistent A-fib to restore sinus rhythm, QTc prolonged to 516 MS, amiodarone currently reduced back to 200 mg daily. Patient unwilling to inject Lovenox outpatient, hematology to
determine anticoagulation plan for outpatient.
- Outpatient cardioversion planned, however anticoagulation has to be determined first per cardiology.
- Continue labetalol, carvedilol and amiodarone.
- Minimize/avoid use of QT prolonging agents as possible.
- Follow-up outpatient with primary potato pancake frier Dr. Hiren Peters of [facility]
DM-II
- Stable. repaglinide to be resumed
- SSI coverage as needed.
Bilateral LE DVT
History of DVT / PE
- Patient noted on US to have bilateral femoral DVTs at [facility] (07/27).
- currently off anticoagulation due to right leg hematoma
- Patient was on pradaxa at the time and with bleeding from anti Xa meds, warfarin recommended,
LIZBETH on CPAP continued
Morbid Obesity due to excess calories
- Affects all aspects of care.
- Encourage healthy diet and increased activity when able with goal of weight reduction.
Hypokalemia
- replace as needed
Acute urinary retention
indwelling ford catheter
- Patient arrives at with Ford catheter in place. This was placed at [facility], presumably for I/O determination.
- ford is out at this point
DVT Prophylaxis: warfarin
Code Status: Full
Anticipated Discharge: 24 - 48 hours
Subjective/Interval History
-
Date of Service: August 16, 2023
complaining for some right leg tightness
breathing subjectively better
denies chest pain/tightness overnight
Objective Data
-
Labs:
Laboratory Results
08/16/23
06:09
WBC 5.9
Hgb 8.1 L
Hct 24.3 L
Plt Count 200
PT 23.5 H
INR 2.11
Sodium 134 L
Potassium 3.4 L
Chloride 96 L
Carbon Dioxide 30
BUN 20 H
Creatinine 1.0
Glucose 85
Calcium 8.7
Vital Signs:
Vital Signs
Temp Pulse Resp BP Pulse Ox
98.7 F 86 18 132/58 99
08/16/23 11:00 08/16/23 11:00 08/16/23 11:00 08/16/23 11:00 08/16/23 11:00
I&O
08/15/23 08/16/23 08/17/23
06:59 06:59 06:59
Intake Total 1820 / 1820 1960 / 1960
Output Total 1485 / 1485 1146 / 1146
Balance 335 / 335 814 / 814
Review of Systems
-
Respiratory: Reports No Symptoms
Cardiac: Reports No Symptoms
Abdomen/GI: Reports No Symptoms
Physical Exam
-
General: Obese
HEENT: Negative Oxygen
Respiratory: Clear to Auscultation and Non Labored Respirations; Negative Wheezes
Cardiac: Regular Rhythm, S1/S2 and Rub; Negative Murmur
GI: Soft, Nontender and Nondistended
Skin: Other (right leg GEORGE drain in place, JACIEL wrap in place)
Neuro: Awake, Alert, Oriented and AO x 3
Psych: Calm and Intact Judgement/Insight
[2023-08-16] MEDS: KCL 20 MEQ PO (14:49)
[2023-08-16 17:26] LABS: Glucose - Point of Care 115 mg/dl (70-99)
[2023-08-16] MEDS: COUMADIN 2.5 MG PO (18:09)
[2023-08-16] MEDS: TYLENOL 650 MG PO (20:54)
[2023-08-16 21:34] LABS: Glucose - Point of Care 116 mg/dl (70-99)
[2023-08-16] MEDS: MELATONIN 3 MG PO (22:14)
[2023-08-17] VITALS (7 sets, daily range): BP systolic 125–154; BP diastolic 55–97; O2SAT 95; BMI 43.2
[2023-08-17 05:19] LABS: Hematocrit 25.6 % (37.0-47.0); Hemoglobin 8.4 g/dL (12.0-16.0); Mean Corp Hgb Conc. 32.8 g/dL (33.0-37.0); Mean Corpuscular Hgb 28.9 pg (27.0-31.0); Mean Platelet Volume 8.9 fL (7.4-10.4); Platelet Count 248 10^3/uL (130-400); Red Blood Cell Count 2.91 10^6/uL (4.20-5.40); Red Cell Dist. Width 16.9 % (11.5-14.5); White Blood Cell Count 5.6 10^3/uL (4.8-10.8)
[2023-08-17 05:46] LABS: INR 2.29; PT 25.1 Sec (11.4-14.6)
[2023-08-17 06:08] LABS: Blood Urea Nitrogen 20 mg/dl (7-17); Calcium 8.8 mg/dl (8.4-10.2); Carbon Dioxide 33 mmol/L (22-30); Chloride 95 mmol/L (98-107); Estimated Creatinine Clearance 51 ml/min; Glucose 109 mg/dl (70-99); Potassium 3.6 mmol/L (3.5-5.1); Sodium 135 mmol/L (135-145); eGFR 54.06
[2023-08-17 08:05] LABS: Glucose - Point of Care 129 mg/dl (70-99)
[2023-08-17] MEDS: PRANDIN 1 MG PO ×3 (08:07→17:05)
[2023-08-17] MEDS: NORVASC 7.5 MG PO (08:07)
[2023-08-17] MEDS: LASIX 80 MG PO ×2 (08:07→21:01)
[2023-08-17] MEDS: LOW STRENGTH ASPIRIN 81 MG PO (08:07)
[2023-08-17] MEDS: PROTONIX 40 MG PO (08:07)
[2023-08-17] MEDS: COREG 6.25 MG PO ×2 (08:08→23:14)
[2023-08-17] MEDS: PACERONE 200 MG PO (08:08)
[2023-08-17] MEDS: RESTASIS 0.05% OPHTHALMIC EMULSION 1 DROPS OPHTH ×2 (08:09→21:04)
[2023-08-17] MEDS: NOVOLOG FLEXPEN-LOW RESISTANCE SC ×3 (08:10→17:05)
[2023-08-17] MEDS: HYDROCORTISONE 1% OINTMENT 1 APPLIC TOPICAL ×2 (08:10→21:03)
[2023-08-17] MEDS: MIRALAX 17 GRAMS PO (08:10)
[2023-08-17] MEDS: METAMUCIL, KONSYL 1 PACKET PO (08:10)
[2023-08-17] MEDS: DESENEX/MITRAZOL/ZEASORB 1 APPLIC TOPICAL ×2 (08:10→21:04)
[2023-08-17] MEDS: KLOR-CON 40 MEQ PO ×2 (08:10→23:14)
[2023-08-17 12:14] LABS: Glucose - Point of Care 185 mg/dl (70-99)
[2023-08-17] MEDS: NOVOLOG FLEXPEN-LOW RESISTANCE 1 UNITS SC (12:16)
[2023-08-17 16:49] LABS: Glucose - Point of Care 136 mg/dl (70-99)
--- NOTE | 2023-08-17 17:25 | W.PN.HOSP.TC ---
Addendum entered and electronically signed by Dillon Parker MD 08/17/23 23:24:
Attending Addendum-
I saw and evaluated the patient. I reviewed the resident�s note and agree with findings and plan as documented in the resident�s note. Sub: patient feels weak and fatigued. Has pain in RLE on standing. Full 12 point ROS reviewed and negative except
as documented Exam: Vitals reviewed in chart GEN-NAD heart irreg irreg SM LLSB lungs crackles at bases abd soft NT LE RLE [address] draining serosang fluid
# Acute Hypoxemic Respiratory Insufficiency - resolved multifactorial
# Bilateral pleural effusion
- likely secondary to CHF- imporoved
-S/p right thoracentesis 08/05/2023 with removal of 500 cc serosanguineous pleural fluid,
-S/p left thoracentesis 08/06/2023 with removal of 400 cc serosanguineous pleural fluid,
# Acute hematoma of RLE
- resolving
- S/p urgent washout/evacuation hematoma (Dr. Chowdhury) on 08/07 POD #9
- S/p 2 U FFP and 6 U PRBC this admit
- Repeat washout if continued drainage or bleeding per vascular.
- Vascular surgery appreciated.
- monitor CBC daily repeat in am
# Acute Anemia of blood loss
- s/p 6 units PRBC
- Patient had anemia of chronic disease with added anemia for blood loss
- Hbg 8.4 today, continue monitor
- repeat CBC in am
# Staph epidermidis Bacteremia - ruled out as contaminant
- Coagulase-negative staph identified from culture 08/01,
- KARL/TTE negative for endocarditis
- Patient off antibiotics at this point
- ID input appreciated
# Acute on Chronic HFmrEF
-resolved
-on PO lasix 80mg twice daily.
-Sternal precautions lifted, up and walking around as tolerated.
# Constipation
- Resolved
- Milk and molasses PRN
# Persistent Atrial Fibrillation
- s/p MAZE MVR and TV repair and HARVINDER exclusion on 06/29.
- amiodarone currently reduced back to 200 mg daily.
- Outpatient cardioversion planned, however anticoagulation has to be determined first per cardiology.
- Continue labetalol, carvedilol and amiodarone.
- Minimize/avoid use of QT prolonging agents as possible.
- Follow-up outpatient with primary computer numerical control machinist Dr. Hiren Peters of [facility]
- on coumadin INR ther- repeat INR in am
- cont current warfarin dose
# DM-II
- Stable cont repaglinide
- monitor accuchecks
- SSI coverage as needed.
# Bilateral LE DVT
- History of DVT / PE
- Patient noted on US to have bilateral femoral DVTs at [facility] (07/27).
- currently started on warfarin
- maintain INR 2-3
- repeat INR in am
# LIZBETH on CPAP continued
# Morbid Obesity due to excess calories
- Affects all aspects of care.
- Encourage healthy diet and increased activity when able with goal of weight reduction.
# Urinary retention
- voiding as usual after ford removal
- cont to monitor for retention
Dispo DC to [facility] in am - 08/17
DVT Prophylaxis: warfarin
Code Status: Full
Time spent coordinating care, review of plan of care with resident, personally reviewed records in EMR, med rec, consults, notes, labs, radiology, d/w nursing � 59 mins
Original Note:
Today's Communication/Plan
-
f/u INR and hbg in AM
cardiology eval in the AM-
Assessment / Plan
Assessment / Plan
67 year old female with PMH significant for A-Fib, Obesity, HTN, HLD, DM-II, HFmrEF, valvular heart dz, cardiothoracic surgery, DVT/PE, Endometrial Ca s/p resection/XRT, transferred from [facility] to for evaluation of CHF and possible
endocarditis, however the workup was negative and she was cleared by ID and off of abx. She developed a RLL hematoma when she was put on lovenox which required an emergent evacuation by surgery. Drain still in place.
# Acute hematoma of RLE
- Spontaneous large, tense hematoma of right calf, most likely caused by Lovenox anticoagulation.
- Stopped Lovenox.
- S/p urgent washout/evacuation hematoma (Dr. Chowdhury) on 08/07
- S/p 2 U FFP and 6 U PRBC this admit
- Repeat washout if continued drainage or bleeding per vascular.
- Vascular surgery appreciated.
- INR jumped to 3.4 with warfarin 5mg
- Patient obviously quite sensitive to warfarin and was given a one time dose of 2.5mg
- INR 2.29 today- continue to monitor
- consulted cardio DCA- will eval in AM
#Acute Hypoxemic Respiratory Insufficiency - resolved
#Bilateral pleural effusion
-Presumed heart failure exacerbation
-CXR 08/04/23 with b/l Pleural effusion.
-S/p right thoracentesis 08/05/2023 with removal of 500 cc serosanguineous pleural fluid,
-S/p left thoracentesis 08/06/2023 with removal of 400 cc serosanguineous pleural fluid,
#Anemia of blood loss
- Patient had anemia of chronic disease with added anemia for blood loss
- Hbg 8.4 today, continue monitor
Staph epidermidis Bacteremia - ruled out as contaminant
- Coagulase-negative staph identified from culture 08/01,
- KARL/TTE negative for endocarditis
- Patient off antibiotics at this point.
Acute on Chronic HFmrEF
-on PO lasix 80mg twice daily.
-Sternal precautions lifted, up and walking around as tolerated.
-Given IV lasix 80mg in evening of 08/14 for dyspnea
Constipation
- Resolved
#Metabolic alkalosis
- Most likely due to dehydration given BUN/creatinine level.
#Persistent Atrial Fibrillation
- s/p MAZE and HARVINDER exclusion on 06/29.
- Amiodarone previously increased by cardiology to 200 mg BID due to persistent A-fib to restore sinus rhythm, QTc prolonged to 516 MS, amiodarone currently reduced back to 200 mg daily.
- Outpatient cardioversion planned, however anticoagulation has to be determined first per cardiology.
- Continue labetalol, carvedilol and amiodarone.
- Minimize/avoid use of QT prolonging agents as possible.
- Follow-up outpatient with primary computer numerical control machinist Dr. Hiren Peters of [facility]
#DM-II
- Stable. repaglinide to be resumed
#Bilateral LE DVT
History of DVT / PE
- Patient noted on US to have bilateral femoral DVTs at [facility] (07/27).
- currently on warfarin 2.5mg
#LIZBETH on CPAP continued
Morbid Obesity due to excess calories
- Affects all aspects of care.
- Encourage healthy diet and increased activity when able with goal of weight reduction.
Hypokalemia
- stable at this time
- potassium chloride?
Acute urinary retention
- Patient arrives at with Ford catheter in place. This was placed at [facility], presumably for I/O determination.
- ford is out at this point
Code Status: Full
Anticipated Discharge: 24 - 48 hours
Subjective/Interval History
-
Date of Service: August 17, 2023
Objective Data
-
Labs:
Laboratory Results
08/17/23
05:13
WBC 5.6
Hgb 8.4 L
Hct 25.6 L
Plt Count 248 D
PT 25.1 H
INR 2.29
Sodium 135
Potassium 3.6
Chloride 95 L
Carbon Dioxide 33 H
BUN 20 H
Creatinine 1.1 H
Glucose 109 H
Calcium 8.8
Vital Signs:
Vital Signs
Temp Pulse Resp BP Pulse Ox
97.7 F 73 17 154/97 100
08/17/23 15:55 08/17/23 15:55 08/17/23 15:55 08/17/23 15:55 08/17/23 15:55
I&O
08/16/23 08/17/23 08/18/23
06:59 06:59 06:59
Intake Total 1959 / 1959 1560 / 1560
Output Total 1146 / 1146 1877 / 1877
Balance 814 / 814 -317 / -317
Review of Systems
-
History Source: Patient
Respiratory: Denies Cough or Trouble Breathing
Musculoskeletal: Reports Muscle Pain
Physical Exam
-
General: Well Developed and Well Nourished
HEENT: Normocephalic and Atraumatic
Respiratory: Clear to Auscultation
Musculoskeletal: Edema, Right Lower Extrem (+ 2 GEORGE tubes)
Psych: Calm
Data Reviewed
-
Labs: Labs Reviewed by me and Discussed with Patient
[2023-08-17] MEDS: TYLENOL 650 MG PO (21:01)
[2023-08-17] MEDS: PREPARATION H OINTMENT 1 APPLIC RECTAL (21:03)
[2023-08-17 21:35] LABS: Glucose - Point of Care 130 mg/dl (70-99)
[2023-08-17] MEDS: COUMADIN 2.5 MG PO (22:54)
[2023-08-17] MEDS: MELATONIN 3 MG PO (22:55)
[2023-08-18 06:00] VITALS: BMI 43.2
[2023-08-18 06:43] LABS: % Basophils 0.6 % (0-2); % Immature Granulocytes 0.4 % (0-0.5); Absolute Eosinophils 0.2 10^3/uL (0-0.7); Absolute Lymphocytes 0.7 10^3/uL (1.2-3.4); Absolute Monocytes 0.6 10^3/uL (0.1-0.6); Absolute Neutrophils 3.5 10^3/uL (1.4-6.5); Hematocrit 26.2 % (37.0-47.0); Hemoglobin 8.3 g/dL (12.0-16.0); INR 2.77; Mean Corp Hgb Conc. 31.7 g/dL (33.0-37.0); Mean Corpuscular Hgb 28.9 pg (27.0-31.0); Mean Corpuscular Volume 91.3 fL (81.0-99.0); Mean Platelet Volume 9.1 fL (7.4-10.4); Nucleated Red Blood Cells % 0 %; PT 29.2 Sec (11.4-14.6); Platelet Count 258 10^3/uL (130-400); Red Blood Cell Count 2.87 10^6/uL (4.20-5.40); Red Cell Dist. Width 16.4 % (11.5-14.5)
[2023-08-18 07:00] VITALS: BP 124/64
[2023-08-18 07:05] LABS: Blood Urea Nitrogen 21 mg/dl (7-17); Calcium 8.6 mg/dl (8.4-10.2); Carbon Dioxide 33 mmol/L (22-30); Chloride 95 mmol/L (98-107); Estimated Creatinine Clearance 51 ml/min; Glucose 114 mg/dl (70-99); Potassium 3.4 mmol/L (3.5-5.1); Sodium 135 mmol/L (135-145); eGFR 54.06
[2023-08-18 07:52] LABS: Glucose - Point of Care 147 mg/dl (70-99)
--- NOTE | 2023-08-18 08:00 | W.PN.HOSP.TC ---
Addendum entered and electronically signed by Dillon Parker MD 08/18/23 23:53:
Attending Addendum-
I saw and evaluated the patient. I reviewed the resident�s note and agree with findings and plan as documented in the resident�s note. Sub: patient continues to feels weak and fatigued.for DC today to SNF. Full 12 point ROS reviewed and negative
except as documented Exam: Vitals reviewed in chart GEN-NAD heart irreg irreg SM LLSB lungs crackles at bases abd soft NT LE RLE [address] draining serosang fluid
# Acute Hypoxemic Respiratory Insufficiency - resolved multifactorial
# Bilateral pleural effusion
- likely secondary to CHF
-S/p right thoracentesis 08/05/2023 with removal of 500 cc serosanguineous pleural fluid,
-S/p left thoracentesis 08/06/2023 with removal of 400 cc serosanguineous pleural fluid,
# Acute hematoma of RLE
- resolving
- S/p urgent washout/evacuation hematoma (Dr. Chowdhury) on 08/07 POD #9
- S/p 2 U FFP and 6 U PRBC this admit
- Repeat washout if continued drainage or bleeding per vascular.
- Vascular surgery appreciated.- drains and medial sutures to be removed prior to DC
- monitor CBC daily repeat in am
# Acute Anemia of blood loss
- s/p 6 units PRBC
- Patient had anemia of chronic disease with added anemia for blood loss
- Hbg 8.4 today, continue monitor
# Staph epidermidis Bacteremia - ruled out as contaminant
- Coagulase-negative staph identified from culture 08/01,
- KARL/TTE negative for endocarditis
- Patient off antibiotics at this point
- ID input appreciated
# Acute on Chronic HFmrEF
-resolved
-on PO lasix 80mg twice daily.
-Sternal precautions lifted, up and walking around as tolerated.
# Constipation
- Resolved
- Milk and molasses PRN
# Persistent Atrial Fibrillation
- s/p MAZE MVR and TV repair and HARVINDER exclusion on 06/29.
- amiodarone currently reduced back to 200 mg daily.
- Outpatient cardioversion planned, however anticoagulation has to be determined first per cardiology.
- Continue labetalol, carvedilol and amiodarone.
- Minimize/avoid use of QT prolonging agents as possible.
- Follow-up outpatient with primary meat seafood associate Dr. Hiren Peters of [facility]
- on coumadin INR ther- repeat INR in am
- cont current warfarin dose
# DM-II
- Stable cont repaglinide
- monitor accuchecks
- SSI coverage as needed.
# Bilateral LE DVT
- History of DVT / PE
- Patient noted on US to have bilateral femoral DVTs at [facility] (07/27).
- currently started on warfarin
- maintain INR 2-3
- repeat INR as op
# LIZBETH on CPAP continued
# Morbid Obesity due to excess calories
- Affects all aspects of care.
- Encourage healthy diet and increased activity when able with goal of weight reduction.
# Urinary retention
- voiding as usual after ford removal
- cont to monitor for retention
Dispo DC to [facility] after seen by vascular
DVT Prophylaxis: warfarin
Code Status: Full
Time spent coordinating care, DC planning, review of DC plan of care with resident, transition of care, review of records, med rec, consults, notes, d/w consultants, nursing, family, and CM� 36 mins
Original Note:
Today's Communication/Plan
-
D/C to [facility]
fu with vascular for suture removal
Assessment / Plan
Assessment / Plan
67 year old female with PMH significant for A-Fib, Obesity, HTN, HLD, DM-II, HFmrEF, valvular heart dz, cardiothoracic surgery, DVT/PE, Endometrial Ca s/p resection/XRT, transferred from [facility] to for evaluation of CHF and possible
endocarditis, however the workup was negative and she was cleared by ID and off of abx. She developed a RLL hematoma when she was put on lovenox which required an emergent evacuation by surgery.
# Acute hematoma of RLE
- resolving
- Spontaneous large, tense hematoma of right calf, most likely caused by Lovenox anticoagulation.
- Stopped Lovenox.
- S/p urgent washout/evacuation hematoma (Dr. Chowdhury) on 08/07
- S/p 2 U FFP and 6 U PRBC this admit
- Repeat washout if continued drainage or bleeding per vascular.
- Vascular surgery appreciated.
- INR jumped to 3.4 with warfarin 5mg
- Patient obviously quite sensitive to warfarin and was given a dose of 2.5mg
- INR 2.77 today
- continue warfarin 2.5mg
- appreciate vascular input- drains were removed
#Acute Hypoxemic Respiratory Insufficiency - resolved
#Bilateral pleural effusion
-Presumed heart failure exacerbation- improved
-CXR 08/04/23 with b/l Pleural effusion.
-S/p right thoracentesis 08/05/2023 with removal of 500 cc serosanguineous pleural fluid,
-S/p left thoracentesis 08/06/2023 with removal of 400 cc serosanguineous pleural fluid,
#Anemia of blood loss
- Patient had anemia of chronic disease with added anemia for blood loss
- s/p 6 PRBC
- Hbg 8.3 today, continue monitor
#Staph epidermidis Bacteremia - ruled out as contaminant
- Coagulase-negative staph identified from culture 08/01,
- KARL/TTE negative for endocarditis
- Patient off antibiotics at this point.
#Acute on Chronic HFmrEF
-on PO lasix 80mg twice daily.
#Constipation
- Resolved
#Metabolic alkalosis
- Most likely due to dehydration given BUN/creatinine level.
#Persistent Atrial Fibrillation
- s/p MAZE and HARVINDER exclusion on 06/29.
- Amiodarone previously increased by cardiology to 200 mg BID due to persistent A-fib to restore sinus rhythm, QTc prolonged to 516 MS, amiodarone currently reduced back to 200 mg daily.
- Outpatient cardioversion planned, however anticoagulation has to be determined first per cardiology.
- Continue labetalol, carvedilol and amiodarone.
- Minimize/avoid use of QT prolonging agents as possible.
- Follow-up outpatient with primary meat seafood associate Dr. Hiren Peters of [facility]
#DM-II
- Stable on repaglinide
#Bilateral LE DVT
History of DVT / PE
- Patient noted on US to have bilateral femoral DVTs at [facility] (07/27).
- currently on warfarin 2.5mg
#LIZBETH on CPAP continued
#Morbid Obesity due to excess calories
- Affects all aspects of care.
- Encourage healthy diet and increased activity when able with goal of weight reduction.
#Hypokalemia
- stable at this time
- 3.4
- continue KCL
#Acute urinary retention
- Patient arrives at with Ford catheter in place. This was placed at [facility], presumably for I/O determination.
- ford is out at this point- voiding as usual
Code Status: Full
DVT prophylaxis- warfarin
Anticipated Discharge: Today
Subjective/Interval History
-
Date of Service: August 18, 2023
Objective Data
-
Labs:
Laboratory Results
08/18/23
06:15
WBC 5.0
Hgb 8.3 L
Hct 26.2 L
Plt Count 258
PT 29.2 H
INR 2.77
Sodium 135
Potassium 3.4 L
Chloride 95 L
Carbon Dioxide 33 H
BUN 21 H
Creatinine 1.1 H
Glucose 114 H
Calcium 8.6
Vital Signs:
Vital Signs
Temp Pulse Resp BP Pulse Ox
98.2 F 86 16 122/55 95
08/17/23 23:07 08/17/23 23:14 08/17/23 23:07 08/17/23 23:14 08/17/23 23:07
I&O
08/17/23 08/18/23 08/19/23
06:59 06:59 06:59
Intake Total 1560 / 1560 960 / 960
Output Total 1877 / 1877 1613 / 1613
Balance -317 / -317 -653 / -653
Review of Systems
-
History Source: Patient
Constitutional: Reports Fatigue
Respiratory: Reports No Symptoms
Cardiac: Reports No Symptoms
Abdomen/GI: Denies Abdominal Pain
Musculoskeletal: Reports Muscle Pain
Neuro: Denies Headache
Hematologic / Lymphatic: Denies Bleeding
Physical Exam
-
General: Well Developed, Well Nourished and Comfortable
HEENT: Normocephalic and Atraumatic
Respiratory: Crackles
Cardiac: Irregular Rhythm
GI: Soft and Nontender
Psych: Calm
Data Reviewed
-
Labs: Labs Reviewed by me, Discussed with Physician and Discussed with Patient
--- NOTE | 2023-08-18 08:00 | W.DCSUMMARY ---
Addendum entered and electronically signed by Dillon Parker MD 08/18/23 23:54:
Read, reviewed, and agree. See same day progress note for additional details.
Mohamud Parker MD
Original Note:
Documented by User: Robbi Pastor MD, Resident 08/18/23 18:52
Discharge Summary
Discharge Data
Date of Admission: 08/01/23
Date of Discharge: 08/18/23
-
Pending Results: No
Hospital Course
Discharging Physician : Robbi Pastor MD ; Dillon Parker MD
Disposition : SNF: [facility]
Primary care physician : Chuy Zabala
Principal Discharge diagnosis : Acute hypoxic respiratory failure, Bilateral pleural effusion, Acute hematoma of RLE, Acute Anemia of blood loss, Acute on Chronic HFmrEF, Constipation,
Chronic Discharge diagnosis : Persistent Atrial Fibrillation, DM-II, Hx Bilateral LE DVT, LIZBETH, Urinary retention.
Hospital Course : 67-year-old female past medical history significant for high blood pressure, A-fib, valvular heart disease presented to ED transfer from [facility] with SOB with suspected CHF exacerbation and endocarditis. She was admitted for further
evaluation and treatment. While in the hospital, patient was seen in consultation with cardiology, infectious disease, pulmonary, cardiac surgery, hematology, and vascular surgery. She received supplemental O2, and IV Lasix for diuresis. Her
oxygen requirement improved and supplemental oxygen was weaned off. She was also started on vancomycin due to concerns for endocarditis bacteremia. Echocardiography done 08/05/2023 was negative for endocarditis and antibiotics was discontinued.
While she was waiting for discharge she developed a spontaneous large hematoma on the right calf most likely caused by the Lovenox anticoagulation and went under an emergency hematoma evacuation and washout procedure on 08/07. She was put on warfarin
after heparin bridge and subsequently attained therapeutic INR. Patient has been assessed and currently medically stable for discharge. Her vital signs stable, drains and most sutures has been removed, and patient has been instructed to follow-up
with vascular surgery outpatient Pena removal of remaining sutures. Patient is now being discharged to SNF and will be seen by primary care doctor and cardiology at the facility.
Important imaging findings : KARL 08/04 without eveidence of vegetations.
Procedure findings : right thoracentesis 08/05/2023 with removal of 500 cc serosanguineous pleural fluid, left thoracentesis 08/06/2023 with removal of 400 cc serosanguineous pleural fluid, Evacuation massive hematoma right calf.
Discharge Plan
-
Patient Disposition: Alf/SNF
Discharge Diagnosis/Procedures: Acute hypoxic respiratory failure, Bilateral pleural effusion, Acute hematoma of RLE, Acute Anemia of blood loss, Acute on Chronic HFmrEF, Constipation, Persistent Atrial Fibrillation, DM-II, Hx Bilateral LE DVT, LIZBETH,
Urinary retention.
Condition: Good
Diet: Low Cholesterol and Diabetic, Carb Controlled
Additional Diets: To keep a steady level of vitamin K in your diet, do not change the amounts of vitamin K-rich foods or drinks you have from day to day or week to week. Vitamin K-rich foods include:
Asparagus.
Broccoli.
[place] sprouts.
Margarita greens.
Kale.
Mustard greens.
Seaweed.
Spinach.
Mexican chard.
Turnip greens.
Activity: As tolerated
Driving Restrictions: As prior to admission
Bathing Restrictions: None
Blood Work: BMP in 1 week
Other Services: PT and OT
Wound Care: Left foot, Right leg
Specialty Instructions: Weigh Daily- Call MD for wt gain/loss 3 lbs overnight/5 lbs in 1 week
Instructions: *[facility] Heart Failure Instructions
Referrals:
Shirley Grissom PA-C [Specified Professional Personl] - 08/26/23 1:30 pm
Hiren Peters MD [Active] - 08/24/23 3:00 pm (You have a cardiology follow up appointment. Please call with questions. )
Chuy Zabala MD [Family Provider] - in one to two weeks
Prescriptions:
New
warfarin [Jantoven] 2.5 mg Tablet
2.5 mg PO QPM Qty: 30 0RF
furosemide 80 mg Tablet
80 mg PO BID Qty: 30 0RF
potassium chloride 20 mEq Packet
40 meq PO BID Qty: 30 0RF
hydrocortisone 1 % Ointment
1 applic topical BID Qty: 28.35 0RF
Continued
multivitamin Tablet
1 tab PO DAILY
melatonin 3 mg Tablet
3 mg PO HS PRN (Reason: sleep)
loratadine 10 mg Tablet
10 mg PO DAILY
pantoprazole 40 mg Tablet,Delayed Release (Dr/Ec)
40 mg PO DAILY
cyanocobalamin (vitamin B-12) 1,000 mcg Tablet
1,000 mcg PO DAILY
ascorbic acid (vitamin C) [Vitamin C] 500 mg Tablet
500 mg PO DAILY
amlodipine 5 mg Tablet
7.5 mg PO DAILY Qty: 30 0RF
amiodarone 200 mg tablet
200 mg PO DAILY Qty: 14 0RF
carvedilol 25 mg Tablet
25 mg PO BID
polyethylene glycol 3350 [Miralax] 17 gram Powder In Packet
17 g PO DAILY
repaglinide 1 mg Tablet
1 mg PO TID
acetaminophen 325 mg Capsule
650 mg PO Q6H PRN (Reason: pain / fever)
Discontinued
potassium chloride 20 mEq Packet
20 meq PO BID
Rx Instructions:
Take with food
aspirin [Children's Aspirin] 81 mg Tablet,Chewable
81 mg PO DAILY Qty: 0 0RF
ferrous sulfate 325 mg (65 mg iron) tablet
325 mg PO DAILY Qty: 30 0RF
Rx Instructions:
continue for 30 days after discharge
furosemide 10 mg/mL Solution
80 mg IV BID
piperacillin-tazobactam [Zosyn] 4.5 gram Recon Soln
4.5 g IV Q8H
enoxaparin 120 mg/0.8 mL Syringe
110 mg SC Q12H
vancomycin 1.5 gram Recon Soln
1.5 g IV Q24H
Discharge Orders:
Discharge Patient (As Directed); Ordered 08/18/23
Ordered By: Bernardino Arredondo
Care Plan Goals
Care Plan Goals:
Problem: Readiness for enhanced knowledge related to diagnosis and treatment plan
Goal: Understand your diagnosis and treatment plan needs, including medications if applicable.
Instructions: Know your diagnosis, underlying causes and treatment plan options, including medications if applicable. Consult with your health care team to learn about your diagnosis and treatment plan, including medications if applicable.
Discharge Date and Time
Discharge Date/Time: 08/18/23 18:27
Print Language: BELIZEAN

Documented by User: Bernardino Arredondo MD, Resident 08/18/23 17:02
Discharge Summary
Discharge Data
Date of Admission: 08/01/23
Date of Discharge: 08/18/23
Discharge Plan
-
Patient Disposition: Alf/SNF
Discharge Diagnosis/Procedures: Acute hypoxic respiratory failure, Bilateral pleural effusion, Acute hematoma of RLE, Acute Anemia of blood loss, Acute on Chronic HFmrEF, Constipation, Persistent Atrial Fibrillation, DM-II, Hx Bilateral LE DVT, LIZBETH,
Urinary retention.
Condition: Good
Diet: Low Cholesterol and Diabetic, Carb Controlled
Additional Diets: To keep a steady level of vitamin K in your diet, do not change the amounts of vitamin K-rich foods or drinks you have from day to day or week to week. Vitamin K-rich foods include:
Asparagus.
Broccoli.
[place] sprouts.
Margarita greens.
Kale.
Mustard greens.
Seaweed.
Spinach.
Mexican chard.
Turnip greens.
Activity: As tolerated
Driving Restrictions: As prior to admission
Bathing Restrictions: None
Blood Work: BMP in 1 week
Other Services: PT and OT
Wound Care: Left foot, Right leg
Specialty Instructions: Weigh Daily- Call MD for wt gain/loss 3 lbs overnight/5 lbs in 1 week
Instructions: *[facility] Heart Failure Instructions
Referrals:
Shirley Grissom PA-C [Specified Professional Personl] - 08/26/23 1:30 pm
Hiren Peters MD [Active] - 08/24/23 3:00 pm (You have a cardiology follow up appointment. Please call with questions. )
Chuy Zabala MD [Family Provider] - in one to two weeks
Prescriptions:
New
warfarin [Jantoven] 2.5 mg Tablet
2.5 mg PO QPM Qty: 30 0RF
furosemide 80 mg Tablet
80 mg PO BID Qty: 30 0RF
potassium chloride 20 mEq Packet
40 meq PO BID Qty: 30 0RF
hydrocortisone 1 % Ointment
1 applic topical BID Qty: 28.35 0RF
Continued
multivitamin Tablet
1 tab PO DAILY
melatonin 3 mg Tablet
3 mg PO HS PRN (Reason: sleep)
loratadine 10 mg Tablet
10 mg PO DAILY
pantoprazole 40 mg Tablet,Delayed Release (Dr/Ec)
40 mg PO DAILY
cyanocobalamin (vitamin B-12) 1,000 mcg Tablet
1,000 mcg PO DAILY
ascorbic acid (vitamin C) [Vitamin C] 500 mg Tablet
500 mg PO DAILY
amlodipine 5 mg Tablet
7.5 mg PO DAILY Qty: 30 0RF
amiodarone 200 mg tablet
200 mg PO DAILY Qty: 14 0RF
carvedilol 25 mg Tablet
25 mg PO BID
polyethylene glycol 3350 [Miralax] 17 gram Powder In Packet
17 g PO DAILY
repaglinide 1 mg Tablet
1 mg PO TID
acetaminophen 325 mg Capsule
650 mg PO Q6H PRN (Reason: pain / fever)
Discontinued
potassium chloride 20 mEq Packet
20 meq PO BID
Rx Instructions:
Take with food
aspirin [Children's Aspirin] 81 mg Tablet,Chewable
81 mg PO DAILY Qty: 0 0RF
ferrous sulfate 325 mg (65 mg iron) tablet
325 mg PO DAILY Qty: 30 0RF
Rx Instructions:
continue for 30 days after discharge
furosemide 10 mg/mL Solution
80 mg IV BID
piperacillin-tazobactam [Zosyn] 4.5 gram Recon Soln
4.5 g IV Q8H
enoxaparin 120 mg/0.8 mL Syringe
110 mg SC Q12H
vancomycin 1.5 gram Recon Soln
1.5 g IV Q24H
Discharge Orders:
Discharge Patient (As Directed); Ordered 08/18/23
Ordered By: Bernardino Arredondo
Care Plan Goals
Care Plan Goals:
Problem: Readiness for enhanced knowledge related to diagnosis and treatment plan
Goal: Understand your diagnosis and treatment plan needs, including medications if applicable.
Instructions: Know your diagnosis, underlying causes and treatment plan options, including medications if applicable. Consult with your health care team to learn about your diagnosis and treatment plan, including medications if applicable.
Discharge Date and Time
Discharge Date/Time: 08/18/23 18:27
Print Language: BELIZEAN

Documented by User: Dillon Parker MD 08/18/23 23:50
Discharge Summary
Discharge Data
Date of Admission: 08/01/23
Date of Discharge: 08/18/23
Discharge Plan
-
Patient Disposition: Alf/SNF
Discharge Diagnosis/Procedures: Acute hypoxic respiratory failure, Bilateral pleural effusion, Acute hematoma of RLE, Acute Anemia of blood loss, Acute on Chronic HFmrEF, Constipation, Persistent Atrial Fibrillation, DM-II, Hx Bilateral LE DVT, LIZBETH,
Urinary retention.
Condition: Good
Diet: Low Cholesterol and Diabetic, Carb Controlled
Additional Diets: To keep a steady level of vitamin K in your diet, do not change the amounts of vitamin K-rich foods or drinks you have from day to day or week to week. Vitamin K-rich foods include:
Asparagus.
Broccoli.
[place] sprouts.
Margarita greens.
Kale.
Mustard greens.
Seaweed.
Spinach.
Mexican chard.
Turnip greens.
Activity: As tolerated
Driving Restrictions: As prior to admission
Bathing Restrictions: None
Blood Work: BMP in 1 week
Other Services: PT and OT
Wound Care: Left foot, Right leg
Specialty Instructions: Weigh Daily- Call MD for wt gain/loss 3 lbs overnight/5 lbs in 1 week
Instructions: *[facility] Heart Failure Instructions
Referrals:
Shirley Grissom PA-C [Specified Professional Personl] - 08/26/23 1:30 pm
Hiren Peters MD [Active] - 08/24/23 3:00 pm (You have a cardiology follow up appointment. Please call with questions. )
Chuy Zabala MD [Family Provider] - in one to two weeks
Prescriptions:
New
warfarin [Jantoven] 2.5 mg Tablet
2.5 mg PO QPM Qty: 30 0RF
furosemide 80 mg Tablet
80 mg PO BID Qty: 30 0RF
potassium chloride 20 mEq Packet
40 meq PO BID Qty: 30 0RF
hydrocortisone 1 % Ointment
1 applic topical BID Qty: 28.35 0RF
Continued
multivitamin Tablet
1 tab PO DAILY
melatonin 3 mg Tablet
3 mg PO HS PRN (Reason: sleep)
loratadine 10 mg Tablet
10 mg PO DAILY
pantoprazole 40 mg Tablet,Delayed Release (Dr/Ec)
40 mg PO DAILY
cyanocobalamin (vitamin B-12) 1,000 mcg Tablet
1,000 mcg PO DAILY
ascorbic acid (vitamin C) [Vitamin C] 500 mg Tablet
500 mg PO DAILY
amlodipine 5 mg Tablet
7.5 mg PO DAILY Qty: 30 0RF
amiodarone 200 mg tablet
200 mg PO DAILY Qty: 14 0RF
carvedilol 25 mg Tablet
25 mg PO BID
polyethylene glycol 3350 [Miralax] 17 gram Powder In Packet
17 g PO DAILY
repaglinide 1 mg Tablet
1 mg PO TID
acetaminophen 325 mg Capsule
650 mg PO Q6H PRN (Reason: pain / fever)
Discontinued
potassium chloride 20 mEq Packet
20 meq PO BID
Rx Instructions:
Take with food
aspirin [Children's Aspirin] 81 mg Tablet,Chewable
81 mg PO DAILY Qty: 0 0RF
ferrous sulfate 325 mg (65 mg iron) tablet
325 mg PO DAILY Qty: 30 0RF
Rx Instructions:
continue for 30 days after discharge
furosemide 10 mg/mL Solution
80 mg IV BID
piperacillin-tazobactam [Zosyn] 4.5 gram Recon Soln
4.5 g IV Q8H
enoxaparin 120 mg/0.8 mL Syringe
110 mg SC Q12H
vancomycin 1.5 gram Recon Soln
1.5 g IV Q24H
Discharge Orders:
Discharge Patient (As Directed); Ordered 08/18/23
Ordered By: Bernardino Arredondo
Care Plan Goals
Care Plan Goals:
Problem: Readiness for enhanced knowledge related to diagnosis and treatment plan
Goal: Understand your diagnosis and treatment plan needs, including medications if applicable.
Instructions: Know your diagnosis, underlying causes and treatment plan options, including medications if applicable. Consult with your health care team to learn about your diagnosis and treatment plan, including medications if applicable.
Discharge Date and Time
Discharge Date/Time: 08/18/23 18:27
Print Language: BELIZEAN
[2023-08-18] MEDS: MIRALAX PO (08:33)
[2023-08-18] MEDS: LASIX 80 MG PO (08:33)
[2023-08-18] MEDS: COREG 6.25 MG PO (08:33)
[2023-08-18] MEDS: PROTONIX 40 MG PO (08:33)
[2023-08-18] MEDS: NORVASC 7.5 MG PO (08:33)
[2023-08-18] MEDS: METAMUCIL, KONSYL 1 PACKET PO (08:34)
[2023-08-18] MEDS: KLOR-CON 40 MEQ PO (08:34)
[2023-08-18] MEDS: PRANDIN 1 MG PO ×3 (08:34→17:10)
[2023-08-18] MEDS: RESTASIS 0.05% OPHTHALMIC EMULSION 1 DROPS OPHTH (08:34)
[2023-08-18] MEDS: PACERONE 200 MG PO (08:34)
[2023-08-18] MEDS: DESENEX/MITRAZOL/ZEASORB 1 APPLIC TOPICAL (08:35)
[2023-08-18] MEDS: HYDROCORTISONE 1% OINTMENT 1 APPLIC TOPICAL (08:35)
[2023-08-18] MEDS: NOVOLOG FLEXPEN-LOW RESISTANCE SC (08:42)
--- NOTE | 2023-08-18 11:01 | CM ---
Addendum entered by Natalie Tate 08/18/23 16:10:
Renee from [facility] called back with auth. [id number] good from 08/17-08/23 concurrent review [phone]. Ambulance auth is [id number]. CM updated facility,physician and patient sister. CM will fax to floor medical necessity forms . Please call report to
[phone]/ fax [phone]
Addendum entered by Natalie Tate 08/18/23 15:51:
Updated clinicals sent, awaiting auth response.
Original Note:
Patient seen at bedside. IMM completed and signed form on chart. Patient plan is to go to [facility] and CM spoke with admissions Curtis [phone] and she requested updated clinicals to be faxed to [phone]. They do have a bed assuming
she is confirmed and will need authorization. CM will continue to follow for discharge planning needs.
Plan; [facility] pending confirmation and auth
[2023-08-18 11:52] LABS: Glucose - Point of Care 204 mg/dl (70-99)
[2023-08-18] MEDS: NOVOLOG FLEXPEN-LOW RESISTANCE 2 UNITS SC (12:22)
--- NOTE | 2023-08-18 14:11 | W.PN.UPDATE ---
Update Note
Progress Note Update
Removed both drains without difficulty or incident and sutures to medial calf incision. Patient tolerated well. Redressed with [place] wrap. Will readjust follow-up appointment to have lateral sutures removed.
[2023-08-18 15:00] VITALS: BP 131/63
[2023-08-18] MEDS: COUMADIN 2.5 MG PO (17:09)
[2023-08-18 17:11] LABS: Glucose - Point of Care 183 mg/dl (70-99)
--- NOTE | 2023-08-19 15:27 | W.DCSUMMARY ---
Addendum entered and electronically signed by Dillon Parker MD 08/20/23 00:52:
Read, reviewed, and agree. Updated previous DC summary with wound care instructions.
Mohamud Parker MD
Original Note:
Documented by User: Bernardino Arredondo MD, Resident 08/19/23 15:30
Discharge Summary
Discharge Data
Date of Admission: 08/01/23
Date of Discharge: 08/19/23
-
Pending Results: No
Discharge Plan
-
Patient Disposition: Penitentiary/SNF
Discharge Diagnosis/Procedures: Acute hypoxic respiratory failure, Bilateral pleural effusion, Acute hematoma of RLE, Acute Anemia of blood loss, Acute on Chronic HFmrEF, Constipation, Persistent Atrial Fibrillation, DM-II, Hx Bilateral LE DVT, LIZBETH,
Urinary retention.
Condition: Good
Diet: Low Cholesterol and Diabetic, Carb Controlled
Additional Diets: To keep a steady level of vitamin K in your diet, do not change the amounts of vitamin K-rich foods or drinks you have from day to day or week to week. Vitamin K-rich foods include:
Asparagus.
Broccoli.
[place] sprouts.
Margarita greens.
Kale.
Mustard greens.
Seaweed.
Spinach.
Togolese chard.
Turnip greens.
Activity: As tolerated
Driving Restrictions: As prior to admission
Bathing Restrictions: None
Blood Work: BMP in 1 week
Other Services: PT and OT
Wound Care: ABD dressing, clean, compression left foot, Right leg.
Specialty Instructions: Weigh Daily- Call MD for wt gain/loss 3 lbs overnight/5 lbs in 1 week
Instructions: *[facility] Heart Failure Instructions
Referrals:
Shirley Grissom PA-C [Specified Professional Personl] - 08/26/23 1:30 pm (Follow-up with Dr. Devin Pena 08/26/2023 1:30 PM)
Hiren Peters MD [Active] - 08/24/23 3:00 pm (You have a cardiology follow up appointment. Please call with questions. )
Chuy Zabala MD [Family Provider] - in one to two weeks
Prescriptions:
New
warfarin [Jantoven] 2.5 mg Tablet
2.5 mg PO QPM Qty: 30 0RF
furosemide 80 mg Tablet
80 mg PO BID Qty: 30 0RF
potassium chloride 20 mEq Packet
40 meq PO BID Qty: 30 0RF
hydrocortisone 1 % Ointment
1 applic topical BID Qty: 28.35 0RF
Continued
multivitamin Tablet
1 tab PO DAILY
melatonin 3 mg Tablet
3 mg PO HS PRN (Reason: sleep)
loratadine 10 mg Tablet
10 mg PO DAILY
pantoprazole 40 mg Tablet,Delayed Release (Dr/Ec)
40 mg PO DAILY
cyanocobalamin (vitamin B-12) 1,000 mcg Tablet
1,000 mcg PO DAILY
ascorbic acid (vitamin C) [Vitamin C] 500 mg Tablet
500 mg PO DAILY
amlodipine 5 mg Tablet
7.5 mg PO DAILY Qty: 30 0RF
amiodarone 200 mg tablet
200 mg PO DAILY Qty: 14 0RF
carvedilol 25 mg Tablet
25 mg PO BID
polyethylene glycol 3350 [Miralax] 17 gram Powder In Packet
17 g PO DAILY
repaglinide 1 mg Tablet
1 mg PO TID
acetaminophen 325 mg Capsule
650 mg PO Q6H PRN (Reason: pain / fever)
Discontinued
potassium chloride 20 mEq Packet
20 meq PO BID
Rx Instructions:
Take with food
aspirin [Children's Aspirin] 81 mg Tablet,Chewable
81 mg PO DAILY Qty: 0 0RF
ferrous sulfate 325 mg (65 mg iron) tablet
325 mg PO DAILY Qty: 30 0RF
Rx Instructions:
continue for 30 days after discharge
furosemide 10 mg/mL Solution
80 mg IV BID
piperacillin-tazobactam [Zosyn] 4.5 gram Recon Soln
4.5 g IV Q8H
enoxaparin 120 mg/0.8 mL Syringe
110 mg SC Q12H
vancomycin 1.5 gram Recon Soln
1.5 g IV Q24H
Discharge Orders:
Discharge Patient (As Directed); Ordered 08/18/23
Ordered By: Bernardino Arredondo
Care Plan Goals
Care Plan Goals:
Problem: Readiness for enhanced knowledge related to diagnosis and treatment plan
Goal: Understand your diagnosis and treatment plan needs, including medications if applicable.
Instructions: Know your diagnosis, underlying causes and treatment plan options, including medications if applicable. Consult with your health care team to learn about your diagnosis and treatment plan, including medications if applicable.
Discharge Date and Time
Discharge Date/Time: 08/18/23 18:27
Print Language: WELSH

Documented by User: Dillon Parker MD 08/20/23 00:51
Discharge Summary
Discharge Data
Date of Admission: 08/01/23
Date of Discharge: 08/20/23
Discharge Plan
-
Patient Disposition: Penitentiary/SNF
Discharge Diagnosis/Procedures: Acute hypoxic respiratory failure, Bilateral pleural effusion, Acute hematoma of RLE, Acute Anemia of blood loss, Acute on Chronic HFmrEF, Constipation, Persistent Atrial Fibrillation, DM-II, Hx Bilateral LE DVT, LIZBETH,
Urinary retention.
Condition: Good
Diet: Low Cholesterol and Diabetic, Carb Controlled
Additional Diets: To keep a steady level of vitamin K in your diet, do not change the amounts of vitamin K-rich foods or drinks you have from day to day or week to week. Vitamin K-rich foods include:
Asparagus.
Broccoli.
[place] sprouts.
Margarita greens.
Kale.
Mustard greens.
Seaweed.
Spinach.
Togolese chard.
Turnip greens.
Activity: As tolerated
Driving Restrictions: As prior to admission
Bathing Restrictions: None
Blood Work: BMP in 1 week
Other Services: PT and OT
Wound Care: ABD dressing, clean, compression left foot, Right leg.
Specialty Instructions: Weigh Daily- Call MD for wt gain/loss 3 lbs overnight/5 lbs in 1 week
Instructions: *[facility] Heart Failure Instructions
Referrals:
Shirley Grissom PA-C [Specified Professional Personl] - 08/26/23 1:30 pm (Follow-up with Dr. Devin Pena 08/26/2023 1:30 PM)
Hiren Peters MD [Active] - 08/24/23 3:00 pm (You have a cardiology follow up appointment. Please call with questions. )
Chuy Zabala MD [Family Provider] - in one to two weeks
Prescriptions:
New
warfarin [Jantoven] 2.5 mg Tablet
2.5 mg PO QPM Qty: 30 0RF
furosemide 80 mg Tablet
80 mg PO BID Qty: 30 0RF
potassium chloride 20 mEq Packet
40 meq PO BID Qty: 30 0RF
hydrocortisone 1 % Ointment
1 applic topical BID Qty: 28.35 0RF
Continued
multivitamin Tablet
1 tab PO DAILY
melatonin 3 mg Tablet
3 mg PO HS PRN (Reason: sleep)
loratadine 10 mg Tablet
10 mg PO DAILY
pantoprazole 40 mg Tablet,Delayed Release (Dr/Ec)
40 mg PO DAILY
cyanocobalamin (vitamin B-12) 1,000 mcg Tablet
1,000 mcg PO DAILY
ascorbic acid (vitamin C) [Vitamin C] 500 mg Tablet
500 mg PO DAILY
amlodipine 5 mg Tablet
7.5 mg PO DAILY Qty: 30 0RF
amiodarone 200 mg tablet
200 mg PO DAILY Qty: 14 0RF
carvedilol 25 mg Tablet
25 mg PO BID
polyethylene glycol 3350 [Miralax] 17 gram Powder In Packet
17 g PO DAILY
repaglinide 1 mg Tablet
1 mg PO TID
acetaminophen 325 mg Capsule
650 mg PO Q6H PRN (Reason: pain / fever)
Discontinued
potassium chloride 20 mEq Packet
20 meq PO BID
Rx Instructions:
Take with food
aspirin [Children's Aspirin] 81 mg Tablet,Chewable
81 mg PO DAILY Qty: 0 0RF
ferrous sulfate 325 mg (65 mg iron) tablet
325 mg PO DAILY Qty: 30 0RF
Rx Instructions:
continue for 30 days after discharge
furosemide 10 mg/mL Solution
80 mg IV BID
piperacillin-tazobactam [Zosyn] 4.5 gram Recon Soln
4.5 g IV Q8H
enoxaparin 120 mg/0.8 mL Syringe
110 mg SC Q12H
vancomycin 1.5 gram Recon Soln
1.5 g IV Q24H
Discharge Orders:
Discharge Patient (As Directed); Ordered 08/18/23
Ordered By: Bernardino Arredondo
Care Plan Goals
Care Plan Goals:
Problem: Readiness for enhanced knowledge related to diagnosis and treatment plan
Goal: Understand your diagnosis and treatment plan needs, including medications if applicable.
Instructions: Know your diagnosis, underlying causes and treatment plan options, including medications if applicable. Consult with your health care team to learn about your diagnosis and treatment plan, including medications if applicable.
Discharge Date and Time
Discharge Date/Time: 08/18/23 18:27
Print Language: WELSH
--- NOTE | 2023-08-19 15:30 | W.PN.UPDATE ---
Update Note
Progress Note Update
Wound care instructions and follow-up instructions for suture removal fax to Lorna at [facility]
== END 2023-08-18 18:27 | DRG 291 ==
LOC: 3 WEST ACU 22:56
PROVIDERS: Clinical Nurse Specialist Acute Care; Hospitalist; Internal Medicine; Nuclear Medicine Nuclear Cardiology; Radiology Vascular & Interventional Radiology; Student in an Organized Health Care Education/Training Program; Surgery Vascular Surgery; ADMITTING PHYSICIAN Hospitalist; ATTENDING PHYSICIAN Family Medicine; CONSULT PHYSICIAN Internal Medicine Cardiovascular Disease; CONSULT PHYSICIAN Internal Medicine Infectious Disease; CONSULT PHYSICIAN Thoracic Surgery (Cardiothoracic Vascular Surgery); FAMILY PHYSICIAN Internal Medicine; OTHER PHYSICIAN Internal Medicine Critical Care Medicine; OTHER PHYSICIAN Internal Medicine Hematology & Oncology
PROC: 4B02XSZ Measurement of Cardiac Pacemaker, External Approach (ICD-10-PCS; 2023-08-03)
PROC: B24BZZ4 Ultrasonography of Heart with Aorta, Transesophageal (ICD-10-PCS; 2023-08-05)
PROC: 0W993ZX Drainage of Right Pleural Cavity, Percutaneous Approach, Diagnostic (ICD-10-PCS; 2023-08-05)
PROC: 0W9B3ZX Drainage of Left Pleural Cavity, Percutaneous Approach, Diagnostic (ICD-10-PCS; 2023-08-06)
PROC: 0Y9H00Z Drainage of Right Lower Leg with Drainage Device, Open Approach (ICD-10-PCS; 2023-08-08)
DX: I11.0 Hypertensive heart disease with heart failure (principal); I50.43 Acute on chronic combined systolic (congestive) and diastolic (congestive) heart failure; J96.01 Acute respiratory failure with hypoxia; I48.21 Permanent atrial fibrillation; I82.403 Acute embolism and thrombosis of unspecified deep veins of lower extremity, bilateral; Z68.41 Body mass index [BMI] 40.0-44.9, adult; D62 Acute posthemorrhagic anemia; E87.3 Alkalosis; D68.32 Hemorrhagic disorder due to extrinsic circulating anticoagulants; I47.20 Ventricular tachycardia, unspecified; R78.81 Bacteremia; B95.7 Other staphylococcus as the cause of diseases classified elsewhere; I08.0 Rheumatic disorders of both mitral and aortic valves; E11.22 Type 2 diabetes mellitus with diabetic chronic kidney disease; E11.36 Type 2 diabetes mellitus with diabetic cataract; Z86.718 Personal history of other venous thrombosis and embolism; G47.33 Obstructive sleep apnea (adult) (pediatric); E66.01 Morbid (severe) obesity due to excess calories; I49.5 Sick sinus syndrome; E78.00 Pure hypercholesterolemia, unspecified; R58 Hemorrhage, not elsewhere classified; S80.11XA Contusion of right lower leg, initial encounter; E87.6 Hypokalemia; I87.2 Venous insufficiency (chronic) (peripheral); I87.8 Other specified disorders of veins; I89.0 Lymphedema, not elsewhere classified; Z79.82 Long term (current) use of aspirin; Z79.02 Long term (current) use of antithrombotics/antiplatelets
CPT/HCPCS: 10140; 32555; 71045; 71046; 75635; 80048; 80053; 80202; 81003; 81015; 82248; 82607; 82728; 82746; 82805; 82945; 82962; 83036; 83540; 83550; 83615; 83735; 83880; 83986; 84100; 84155; 84157; 84484; 85014; 85018; 85025; 85027; 85384; 85610; 85730; 86850; 86900; 86901; 86920; 87015; 87040; 87070; 87149; 87186; 87205; 89051; 93005; 93312; 93320; 93325; 94640; 97110; 97116; 97162; 97164; 97166; 97530; 97535; P9016; P9059; Q9967

== ENCOUNTER 2023-08-24 12:02 | Emergency (ER) | payer OTHER, SELFPAY ==
[2023-08-24 12:05] VITALS: BP 133/90
[2023-08-24 12:06] VITALS: BP 133/90; BMI 36.7
[2023-08-24 12:59] LABS: % Basophils 0.5 % (0-2); % Eosinophils 1.4 % (0-6); % Immature Granulocytes 0.6 % (0-0.5); % Lymphocytes 9.5 % (20.5-51.1); % Monocytes 12.3 % (1.7-9.3); % Neutrophils 75.7 % (42.2-75.2); Absolute Eosinophils 0.1 10^3/uL (0-0.7); Absolute Lymphocytes 0.6 10^3/uL (1.2-3.4); Absolute Monocytes 0.8 10^3/uL (0.1-0.6); Absolute Neutrophils 4.9 10^3/uL (1.4-6.5); Hematocrit 27.5 % (37.0-47.0); Hemoglobin 9.2 g/dL (12.0-16.0); Mean Corp Hgb Conc. 33.5 g/dL (33.0-37.0); Mean Corpuscular Hgb 29.1 pg (27.0-31.0); Mean Platelet Volume 8.9 fL (7.4-10.4); Nucleated Red Blood Cells % 0 %; Platelet Count 257 10^3/uL (130-400); Red Blood Cell Count 3.16 10^6/uL (4.20-5.40); Red Cell Dist. Width 15.5 % (11.5-14.5); White Blood Cell Count 6.4 10^3/uL (4.8-10.8)
[2023-08-24 13:21] LABS: Blood Urea Nitrogen 28 mg/dl (7-17); Calcium 8.2 mg/dl (8.4-10.2); Carbon Dioxide 31 mmol/L (22-30); Chloride 95 mmol/L (98-107); Estimated Creatinine Clearance 61 ml/min; Glucose 133 mg/dl (70-99); Sodium 131 mmol/L (135-145); eGFR > 60.00
[2023-08-24 14:38] LABS: INR 3.52; PT 35.3 Sec (11.4-14.6)
--- NOTE | 2023-08-24 14:56 | ED.GENMED ---
History of Present Illness
General
Chief Complaint: Post Operative Problem(s)
Source: patient
Exam Limitations: none
Time Seen by Provider: 08/24/23 13:04
History of Present Illness
History of Present Illness:
68-year-old female who presents with bleeding from her wound. She had a recent hematoma evacuation and had a GOERGE drain in the site. The wound itself has been good but the site of the drain has been oozing. Patient states she has been holding her
Coumadin because it was high apparently. Patient offers no other complaints.
Past History
Past History
ED Past Medical History: Arrthythmia (Atrial fibrillation), CHF, CVA, GERD, Hypercholesterolemia, NIDDM and Other (Obstructive sleep apnea, pulmonary embolism, DVT, endometrial cancer)
Phy Exam
Physical Exam
Physical Exam:
CONSTITUTIONAL Vital signs reviewed, Patient alert and oriented to person, place and time. Well-appearing. Obese
HEAD atraumatic, normocephalic.
EYES eyelids normal to inspection, Extraocular muscles intact, Conjunctiva normal, Sclera normal.
NECK normal range of motion, Trachea midline, no jugular venous distention.
RESP no respiratory distress
BACK No obvious deformities
UPPER EXTREMITY Gross Range of motion normal, gross motor strength normal
LOWER EXTREMITY Gross range of motion normal, Gross motor strength normal. Chronic venous stasis changes noted to bilateral lower extremities. There are 2 postoperative sutured wounds 1 medially and 1 laterally. The wounds themselves are intact.
There are sutures in place on the lateral wound. There is an area of necrotic skin to the distal end of that. Proximal to the medial wound there is a small area with Steri-Strips in place that upon exam does ooze a bit. It stops but when it is
palpated expressed some more blood. After this small cavity that was palpated was expressed it to stop bleeding.
NEURO Speech normal, No focal motor deficits include, [place] coma scale 15, Memory normal, Cranial Nerves intact to screening exam.
SKIN Skin warm, dry, and normal in color.
PSYCHIATRIC Patient oriented to person place and time, Normal affect.
Course
Orders/Labs/Results
Orders:
Orders
08/24/23 12:12
Basic Metabolic Panel Urgent
CBC/With Diff [Complete Blood Count/With Diff] Urgent
08/24/23 14:14
Prothrombin Time Urgent
08/24/23 14:27
Type+Screen Urgent
BBK Wristband Number:
Abnormal Lab Results
08/24/23 08/24/23
12:12 14:14
RBC 3.16 L 10^6/uL
(4.20-5.40)
Hgb 9.2 L g/dL
(12.0-16.0)
Hct 27.5 L %
(37.0-47.0)
RDW 15.5 H %
(11.5-14.5)
Absolute Lymphs (auto) 0.6 L 10^3/uL
(1.2-3.4)
Absolute Monos (auto) 0.8 H 10^3/uL
(0.1-0.6)
Immature Gran % 0.6 H %
(0-0.5)
Neutrophils % 75.7 H %
(42.2-75.2)
Lymphocytes % 9.5 L %
(20.5-51.1)
Monocytes % 12.3 H %
(1.7-9.3)
PT 35.3 H Sec
(11.4-14.6)
Sodium 131 L mmol/L
(135-145)
Chloride 95 L mmol/L
(98-107)
Carbon Dioxide 31 H mmol/L
(22-30)
BUN 28 H mg/dl
(7-17)
Glucose 133 H mg/dl
(70-99)
Calcium 8.2 L mg/dl
(8.4-10.2)
08/24/23 12:12
08/24/23 12:12
Vital Signs
Initial and Last Documented VS:
Initial Vital Signs
BP
133/90
08/24/23 12:05
Last Documented Vital Signs
Temp Pulse Resp BP Pulse Ox
99.0 F 79 31 133/90 95
08/24/23 12:06 08/24/23 14:30 08/24/23 14:30 08/24/23 12:06 08/24/23 14:30
MDM/Problems Addressed
MDM/Problems Addressed:
Postoperative wound bleeding, supratherapeutic INR
Chronic conditions affecting care:
History of pulmonary embolism, atrial fibrillation, chronic anticoagulation
*Pulse Oximetry
Patient hypoxic: no
*Critical Care Note
Total Time (30-74mins, 75-104mins- exclusive of procedures): Not Applicable
Data Reviewed
Review of Other/Old Records Reveals: Progress Notes (Surgical postoperative notes reviewed) and Discharge Summary
Source: patient
Prescriptions/Medications Considered But Not Given:
Considered vitamin K but for now let INR trend down
Patient Management
Escalation/DeEscalation of care consider admission/obs:
Area was compressed near the site of the old GEORGE drain to take up the space under the skin and no further bleeding has occurred. There was a Benton wrap applied to apply a little bit of compression. On reevaluation the wound appears dry. Her INR is
still supratherapeutic. Continue to hold Coumadin but recommended recheck on Thursday. She has an appoint with her surgeon on Thursday. I recommended leaving the dressing intact until Thursday
ED Attending Note
-
Portions of this chart may have been created with voice recognition software.� Occasional wrong word or��sound alike� substitutions may have occurred due to the inherent limitations of voice recognition software.
Discharge Plan
Departure
Patient Disposition: Home (Routine Discharge)
Date of Disposition: 08/24/23
Time of Disposition: 15:05
Patient with high blood pressure during this ER visit?: Yes
Discharge Problem:
Post-op bleeding
Instructions: Bleeding After Surgery, BLOOD PRESSURE
Prescriptions:
No Action
multivitamin Tablet
1 tab PO DAILY
melatonin 3 mg Tablet
3 mg PO HS PRN (Reason: sleep)
loratadine 10 mg Tablet
10 mg PO DAILY
pantoprazole 40 mg Tablet,Delayed Release (Dr/Ec)
40 mg PO DAILY
cyanocobalamin (vitamin B-12) 1,000 mcg Tablet
1,000 mcg PO DAILY
ascorbic acid (vitamin C) [Vitamin C] 500 mg Tablet
500 mg PO DAILY
amlodipine 5 mg Tablet
7.5 mg PO DAILY Qty: 30 0RF
amiodarone 200 mg tablet
200 mg PO DAILY Qty: 14 0RF
carvedilol 25 mg Tablet
25 mg PO BID
polyethylene glycol 3350 [Miralax] 17 gram Powder In Packet
17 g PO DAILY
repaglinide 1 mg Tablet
1 mg PO TID
acetaminophen 325 mg Capsule
650 mg PO Q6H PRN (Reason: pain / fever)
warfarin [Jantoven] 2.5 mg Tablet
2.5 mg PO QPM Qty: 30 0RF
furosemide 80 mg Tablet
80 mg PO BID Qty: 30 0RF
potassium chloride 20 mEq Packet
40 meq PO BID Qty: 30 0RF
hydrocortisone 1 % Ointment
1 applic topical BID Qty: 28.35 0RF
Referrals:
UNKNOWN - PT DOES,NOT KNOW [Family Provider] -
Activity Restrictions/Additional Instructions:
Please continue to not take your Coumadin until further advised by your doctor. Please have your INR checked on Thursday. Please also see your vascular surgeon and follow-up on Thursday as planned. Please leave the dressings that we applied
intact until Thursday. Return for saturated dressings, pain, fevers or any other concerns.
Interventions
Interventions:
*Risk Screen - Suicide Last Done: 08/24/23 12:06
*General Assessment Last Done: 08/24/23 12:06
*Neglect/Abuse Screening Last Done: 08/24/23 12:06
ED- Fall Risk Assessment Last Done: 08/24/23 12:26
ED-Skin Assessment Last Done: 08/24/23 12:26
Discharge Date and Time
Print Language: SWEDISH
== END 2023-08-24 20:14 | disposition home or self-care (01) ==
LOC: EMR 12:02
PROVIDERS: Emergency Medicine; EMERGENCY PHYSICIAN Emergency Medicine
DX: L76.22 Postprocedural hemorrhage of skin and subcutaneous tissue following other procedure (principal); Y83.9 Surgical procedure, unspecified as the cause of abnormal reaction of the patient, or of later complication, without mention of misadventure at the time of the procedure; Z79.01 Long term (current) use of anticoagulants
CPT/HCPCS: 99283; 80048; 85025; 85610

== ENCOUNTER 2023-09-01 16:27 | Inpatient (IN) | payer OTHER, SELFPAY ==
[2023-09-01] VITALS (8 sets, daily range): BP systolic 118–145; BP diastolic 55–79; BMI 43.4
--- NOTE | 2023-09-01 13:13 | ED.GENMED ---
History of Present Illness
General
Chief Complaint: Post Operative Problem(s)
Time Seen by Provider: 09/01/23 13:13
History of Present Illness
History of Present Illness:
HPI: The patient had evacuation of a tense hematoma of the right calf 08/08/2023 (this was a spontaneous hematoma while hospitalized for CHF/endocarditis) and was on Lovenox at that time�this was surgically removed by Dr. Chowdhury. She was discharged to
a [facility] wound continues to bleed and she was sent here after staff spoke to PMD who spoke to vascular surgery with indicated that vascular surgery will evaluate patient in the ED. The patient states that she is on Keflex and
Coumadin now.
EXAM:
GENERAL: The patient appears weak and debilitated
HEENT: Moist oral mucosa
CARDIOVASCULAR: No murmurs, normal heart rate, slightly irregular rhythm, No chest wall tenderness
PULMONARY: No respiratory distress, breath sounds are clear and equal
ABDOMEN: Soft with no peritoneal signs, no tenderness
NEUROLOGIC: Excellent strength all extremities, no coordination deficits
PSYCHIATRIC: Appropriate mental status, normal insight and judgement
EXTREMITIES: There is a surgical wound to the anteromedial aspect of the right leg, there is venous stasis skin changes, there is a wound noted to the posterior lateral distal right lower extremity with ongoing bleeding which is fairly deep/tunneling
SKIN: As above
TIME OF INITIAL ENCOUNTER: 1 PM
NUMBER AND COMPLEXITY OF PROBLEMS ADDRESSED AT THE ENCOUNTER
� Chronic conditions affecting care: High blood pressure, A-fib, valvular heart disease, diabetes
� Acute Exacerbation and/or Progression of Chronic Illness: This is a subacute problem
� Differential Diagnosis includes: Surgical wound infection, poor wound healing, coagulopathy
AMOUNT AND/OR COMPLEXITY OF DATA TO BE REVIEWED AND ANALYZED
� I performed an independent evaluation of and my interpretation is:
EKG: A-fib 83
CT:
X-rays:
Laboratory Studies: White count 6.0, hemoglobin 9.7 up from 9.2, INR 1.78, bicarb 34, creatinine 0.9, wound culture pending
Other:
� Review of other/old records: I reviewed the records including the discharge summary as summarized above in the HPI
� Clinical information was obtained by an independent historian: I reviewed notes from [facility]
� Prescriptions/Medications Considered but not given:
� Further testing considered but not performed:
RISK OF COMPLICATIONS AND/OR MORBIDITY OR MORTALITY OF PATIENT MANAGEMENT
� Social determinants of health affecting care: Currently staying at [facility]
� Discussion with other providers: I discussed case with vascular who recommends IV antibiotics and medical admission and they would likely take to the OR urgently in the next few days for debridement; Dr. Freeman for admission
� Escalation of care including admission/observation vs risk of discharge considered: As above
Past History
Past History
ED Past Medical History: Arrthythmia (Atrial fibrillation), CHF, CVA, GERD, Hypercholesterolemia, NIDDM and Other (Obstructive sleep apnea, pulmonary embolism, DVT, endometrial cancer)
Phy Exam
Physical Exam
Physical Exam:
See HPI
Course
Orders/Labs/Results
Orders:
Orders
09/01/23 13:19
Prothrombin Time Urgent
09/01/23 13:33
Basic Metabolic Panel Urgent
Complete Blood Count/With Diff Urgent
Wound Culture [Wound/Abscess/Other Culture] Urgent
CELIO Source: Surgical Wound
Specimen Description:
Date Specimen was Collected: 09/01/23
Time Specimen was Collected: 13:32
09/01/23 14:56
CeFAZolin 1 GRAM [Ancef] 1 gram in 5 ml IV NOW
09/01/23 14:57
Electrocardiogram (*1) Urgent
Reason for Study: Atrial Fibrillation
EKG- Treatment ONCE
09/01/23 15:26
CeFAZolin 1 GRAM [Ancef] 1 gram in 5 ml IV NOW
Abnormal Lab Results
09/01/23 09/01/23
13:19 13:33
RBC 3.51 L 10^6/uL
(4.20-5.40)
Hgb 9.7 L g/dL
(12.0-16.0)
Hct 29.9 L %
(37.0-47.0)
MCHC 32.4 L g/dL
(33.0-37.0)
RDW 15.3 H %
(11.5-14.5)
Abs Immat Gran (auto) 0.1 H 10^3/uL
(0-0.05)
Absolute Lymphs (auto) 0.8 L 10^3/uL
(1.2-3.4)
Absolute Monos (auto) 0.7 H 10^3/uL
(0.1-0.6)
Immature Gran % 1.0 H %
(0-0.5)
Lymphocytes % 12.6 L %
(20.5-51.1)
Monocytes % 11.6 H %
(1.7-9.3)
PT 20.5 H Sec
(11.4-14.6)
Potassium 3.4 L mmol/L
(3.5-5.1)
Chloride 93 L mmol/L
(98-107)
Carbon Dioxide 34 H mmol/L
(22-30)
BUN 27 H mg/dl
(7-17)
09/01/23 13:33
09/01/23 13:33
Vital Signs
Initial and Last Documented VS:
Initial Vital Signs
BP
143/77
09/01/23 12:39
Last Documented Vital Signs
Temp Pulse Resp BP Pulse Ox
98.1 F 82 22 136/58 94
09/01/23 12:44 09/01/23 15:15 09/01/23 13:45 09/01/23 15:00 09/01/23 15:15
*Critical Care Note
Total Time (30-74mins, 75-104mins- exclusive of procedures): Not Applicable
ED Attending Note
-
Portions of this chart may have been created with voice recognition software.� Occasional wrong word or��sound alike� substitutions may have occurred due to the inherent limitations of voice recognition software.
Discharge Plan
Departure
Patient Disposition: Admit
Date of Disposition: 09/01/23
Time of Disposition: 15:27
Presentation/result/management discussed w/ accepting MD/DO: Hospitalist
Discharge Problem:
Nonhealing surgical wound
Prescriptions:
No Action
melatonin 3 mg Tablet
3 mg PO HS
loratadine 10 mg Tablet
10 mg PO DAILY
pantoprazole 40 mg Tablet,Delayed Release (Dr/Ec)
40 mg PO DAILY
cyanocobalamin (vitamin B-12) 1,000 mcg Tablet
1,000 mcg PO DAILY
ascorbic acid (vitamin C) [Vitamin C] 500 mg Tablet
500 mg PO DAILY
amlodipine 5 mg Tablet
7.5 mg PO DAILY Qty: 30 0RF
amiodarone 200 mg tablet
200 mg PO DAILY Qty: 14 0RF
carvedilol 25 mg Tablet
25 mg PO BID
polyethylene glycol 3350 [Miralax] 17 gram Powder In Packet
17 g PO DAILY
repaglinide 1 mg Tablet
1 mg PO AC
acetaminophen 325 mg Capsule
650 mg PO Q6H MDD 3000 mg PRN (Reason: mild pain / fever)
furosemide 80 mg Tablet
80 mg PO BID Qty: 30 0RF
Metamucil Packet
1 packet PO DAILY
Theragen Tablet
1 tab PO DAILY
magnesium hydroxide [Milk of Magnesia] 400 mg/5 mL Suspension
30 ml PO DAILYPRN PRN (Reason: constipation)
cephalexin 500 mg Capsule
500 mg PO Q8H
Patient Comments:
09/01/23: starting 08/28/23, take 1 capsule every 8 hours for 7 days, ending 09/04/23
Fleet Enema 19-7 gram/118 mL Enema
118 ml ID [id number] PRN (Reason: constipation, no bm 72 hrs)
bisacodyl 5 mg Tablet,Delayed Release (Dr/Ec)
10 mg PO HSPRN PRN (Reason: constipation)
fluticasone propionate [Flonase] 50 mcg/actuation [place],Suspension
2 spray INTRANASAL DAILY
hydrocortisone 1 % ointment
1 applic topical BID
potassium chloride 20 mEq packet
20 meq PO TID
Referrals:
UNKNOWN - PT DOES,NOT KNOW [Unknown Provider] -
Interventions
Interventions:
*Risk Screen - Suicide Last Done: 09/01/23 12:44
*General Assessment Last Done: 09/01/23 12:44
*Neglect/Abuse Screening Last Done: 09/01/23 12:44
ED- Fall Risk Assessment Last Done: 09/01/23 12:44
ED-Skin Assessment Last Done: 09/01/23 13:41
Discharge Date and Time
Print Language: INDONESIAN
[2023-09-01 13:53] LABS: % Basophils 0.3 % (0-2); % Eosinophils 2.3 % (0-6); % Lymphocytes 12.6 % (20.5-51.1); % Monocytes 11.6 % (1.7-9.3); % Neutrophils 72.2 % (42.2-75.2); Absolute Eosinophils 0.1 10^3/uL (0-0.7); Absolute Immature Granulocytes 0.1 10^3/uL (0-0.05); Absolute Lymphocytes 0.8 10^3/uL (1.2-3.4); Absolute Monocytes 0.7 10^3/uL (0.1-0.6); Absolute Neutrophils 4.3 10^3/uL (1.4-6.5); Hematocrit 29.9 % (37.0-47.0); Hemoglobin 9.7 g/dL (12.0-16.0); Mean Corp Hgb Conc. 32.4 g/dL (33.0-37.0); Mean Corpuscular Hgb 27.6 pg (27.0-31.0); Mean Corpuscular Volume 85.2 fL (81.0-99.0); Mean Platelet Volume 8.6 fL (7.4-10.4); Nucleated Red Blood Cells % 0 %; Platelet Count 321 10^3/uL (130-400); Red Blood Cell Count 3.51 10^6/uL (4.20-5.40); Red Cell Dist. Width 15.3 % (11.5-14.5)
[2023-09-01 14:04] LABS: INR 1.78; PT 20.5 Sec (11.4-14.6)
[2023-09-01 14:08] LABS: Blood Urea Nitrogen 27 mg/dl (7-17); Calcium 8.8 mg/dl (8.4-10.2); Carbon Dioxide 34 mmol/L (22-30); Chloride 93 mmol/L (98-107); Estimated Creatinine Clearance 62 ml/min; Glucose 73 mg/dl (70-99); Potassium 3.4 mmol/L (3.5-5.1); Sodium 135 mmol/L (135-145); eGFR > 60.00
--- NOTE | 2023-09-01 15:00 | CON.VAS ---
Addendum entered and electronically signed by Devin Pena III, MD 09/01/23 16:54:
This patient was seen and examined with TELMA Khalil. I agree with the history and physical exam as well as the assessment and plan. I have the following additions:
Right posterior calf wound as described
Draining old hematoma
Areas of skin necrosis identified
Will plan for operative debridement of the right calf wound 09/02/2023 with possible VAC placement
Hold Coumadin
Heparin drip
IV antibiotics
Signed:
Devin Pena III, MD
[facility] [address] [facility] Vascular Surgery
[phone] ([id number])
Original Note:
Consultation
Consultation Request
Date/Time Consultation Performed: 09/01/2023 1500
Requesting Provider: Asad Montemayor MD
Performing Provider: Malia Rodgers NP-C for Devin Pena III MD
Reason for Consultation: RLE non-healing wound
Medical History
-
Chief Complaint: Right calf nonhealing wound
History of Present Illness:
This is a 68-year-old female with significant past medical history for atrial fibrillation, endometrial cancer, heart failure, hypertension, DVT/PE, and diabetes who presented to [facility] for ongoing right posterior calf wound. Patient
was recently hospitalized here at [facility] from 08/01/2023 to 08/19/2023 for management of CHF exacerbation and suspected endocarditis, during this admission she developed a spontaneous right calf hematoma that required surgical intervention on
08/08/2023. Patient notes roughly few days after discharge she started experiencing drainage from her posterior right calf, that has now progressed to a wound. She does note in the outpatient setting she was placed on oral Keflex for concern of
odorous drainage from posterior calf. She also endorses experiencing a fever of 99.4 in the outpatient setting, but denies chills, nausea, vomiting, shortness of breath, dyspnea on exertion, and chest pain.
Past Medical History
Past Medical History: Arrhythmias (Atrial fibrillation), Cancer (Endometrial Cancer s/p Surgery and XRT), CHF, HTN and Other (Obesity, DVT/PE (2013), DVT (07/28/23))
Past Surgical History: Cardiac (MV Replacement, TV Repair, MAZE, HARVINDER Exclusion (06/30/23), permanent pacemaker revision (07/06/23)), Gynecological (CHELITA / BSO), Orthopedic (Carpal Tunnel Release), Tonsilectomy and Other (Thoracentesis
(07/07/23),Cataracts )
Social History
Tobacco: Non-Smoker
Alcohol: None
Drug: None
Living: Penitentiary
Allergies / Home Medications
Allergy/AdvReac Type Severity Reaction Status Date / Time
oxytetracycline Allergy Hives Verified 06/23/23 15:29
[From Terramycin]
�Medication �Instructions �Recorded �Confirmed �Type
ascorbic acid (vitamin C) 500 mg 500 mg PO DAILY Supplement 06/23/23 09/01/23 History
tablet (Vitamin C)
cyanocobalamin (vitamin B-12) 1,000 mcg PO DAILY Supplement 06/23/23 09/01/23 History
1,000 mcg tablet
loratadine 10 mg tablet 10 mg PO DAILY Allergies 06/23/23 09/01/23 History
melatonin 3 mg tablet 3 mg PO HS sleep 06/23/23 09/01/23 History
pantoprazole 40 mg tablet,delayed 40 mg PO DAILY Gastrointestinal 06/23/23 09/01/23 History
release Issue
amlodipine 5 mg tablet 7.5 mg (1.5 x 5 mg) PO DAILY 07/08/23 09/01/23 Rx
hypertension #30 tabs
amiodarone 200 mg tablet 200 mg PO DAILY Arrhythmia #14 tabs 07/09/23 09/01/23 Rx
acetaminophen 325 mg capsule 650 mg PO Q6H PRN mild pain / fever 08/01/23 09/01/23 History
carvedilol 25 mg tablet 25 mg PO BID Heart 08/01/23 09/01/23 History
Disease/Condition
polyethylene glycol 3350 17 gram 17 g PO DAILY Constipation 08/01/23 09/01/23 History
oral powder packet (Miralax)
repaglinide 1 mg tablet 1 mg PO AC Diabetes 08/01/23 09/01/23 History
furosemide 80 mg tablet 80 mg PO BID Heart Failure #30 tabs 08/18/23 09/01/23 Rx
bisacodyl 5 mg tablet,delayed 10 mg PO HSPRN PRN constipation 09/01/23 09/01/23 History
release
cephalexin 500 mg capsule 500 mg PO Q8H 09/01/23 09/01/23 History
fluticasone propionate 50 2 spray intranasal DAILY 09/01/23 09/01/23 History
mcg/actuation nasal
spray,suspension
hydrocortisone 1 % topical ointment 1 applic topical BID B/L legs 09/01/23 09/01/23 History
magnesium hydroxide 400 mg/5 mL 30 ml PO DAILYPRN PRN constipation 09/01/23 09/01/23 History
oral suspension (Milk of Magnesia)
potassium chloride 20 mEq oral 20 meq PO TID Hypokalemia 09/01/23 09/01/23 History
packet
psyllium 1 packet PO DAILY 09/01/23 09/01/23 History
sodium phosphates 19 gram-7 118 ml FL [id number] PRN 09/01/23 09/01/23 History
gram/118 mL enema (Fleet Enema) constipation, no bm 72 hrs
therapeutic multivitamin 1 tab PO DAILY 09/01/23 09/01/23 History
Review of Systems
-
History Source: Patient
Constitutional: Reports No Symptoms
EENT: Reports No Symptoms
Respiratory: Reports No Symptoms
Cardiac: Reports No Symptoms
Abdomen/GI: Reports No Symptoms
: Reports No Symptoms
Musculoskeletal: Reports Edema
Skin: Reports Other (Right posterior calf with wound that tracks beneath skin, unclear of depth, serosanguineous/mild purulent drainage, non-malodorous)
Neurological: Reports No Symptoms
Endocrine: Reports No Symptoms
Physical Exam
Vital Signs
Temp Pulse Resp BP Pulse Ox
98.1 F 82 22 137/61 95
09/01/23 12:44 09/01/23 14:00 09/01/23 13:45 09/01/23 14:00 09/01/23 13:45
Lab Results
09/01/23 13:33
09/01/23 13:33
Physical Exam
General: No Apparent Distress and Comfortable
HEENT: Normocephalic, Anicteric and Atraumatic
Cardiac: Negative JVD
GI: Soft, Non Tender and Non Distended
Musculoskeletal: Edema (Left lower extremity trace edema, right lower extremity +2 edema )
Skin: Other (Right posterior calf with large and deep cavernous wound with possible tracking upward to anterior area of small eschar, surrounding skin with erythema, tender to touch. Medial anterior calf site with small opening at prior surgical
incision area, no evidence of drainage, no odor)
Neuro: AO x 3
Psych: Calm
Assessment / Plan
-
Assessment: 68-year-old female extensive posterior right calf wound following hematoma evacuation on 08/08/2023
Plan:
Would admit to hospital under medical service given extensive comorbidities
Hold p.o. Coumadin, can initiate IV heparin for anticoagulation
N.p.o. at midnight for OR tomorrow for incision and debridement of right calf wound with possible VAC placement on 09/02/2023
IV antibiotics
I performed this shared service with the attending. I evaluated the patient [id number] and have entered clinical documentation as shown in the encounter note. I performed the following component(s):�history and physical exam. Note that medical
decision making is not final until attested by vascular attending.
--- NOTE | 2023-09-01 15:23 | HPS.HSE ---
Addendum entered and electronically signed by Davion Mcelroy MD 09/01/23 17:06:
I saw and examined the patient.
The TREATMENT SUPERVISOR or PA's note was reviewed and I agree with the note.
Comment:
68-year-old female who was sent from [facility] due to right calf chronic hematoma with open oozing medial aspect of the thigh. Noted warmth to her open wound with increased erythema and an odor and placed on oral Keflex. She had
hematoma evacuation of the right calf on 08/08/2023.� Hemodynamically stable, Hgb 9.7 (stable at 9.2). INR 1.78; �K 3.4. Plan: Vascular for debridement. wound care. IV cefazolin. F/u cultures if able to from OR. hold coumadin; Hep ggt utnil
procedure;
Original Note:
Family Physician
-
Family Physician: Chuy Zabala
Chief Complaint
-
Right calf hematoma with oozing open wound with erythema and odor on current Coumadin
History of Present Illness
68-year-old female who was sent from [facility] due to right calf chronic hematoma with open oozing medial aspect of the thigh. She has chronic thigh and lower leg lymphedema. She reports 4 days ago when the nurse was changing her
dressing she noted warmth to her open wound with increased erythema and an odor. She was then placed on oral Keflex. She had hematoma evacuation of the right calf on 08/08/2023. She is on Coumadin for A-fib in addition bilateral lower extremity
femoral DVTs at [facility] 07/28/2023. She reports she was on prior Pradaxa but was changed to Coumadin due to development of DVTs at [facility]. She is currently also on Keflex. This was a spontaneous hematoma, blood loss anemia due to
right calf hematoma while hospitalized for CHF/endocarditis and being on Lovenox 08/01 - 08/16/2023. Other past medical history includes persistent A-fib, status post maze MVR and TR repair, bilateral pleural effusions secondary to CHF status post
thoracentesis left and right 08/04 - 08/06/2023 chronic CHF, constipation, DM2, LIZBETH on CPAP, morbid obesity, urinary retention
Medical History
Past Medical History
Past Medical History: Reports Other
Additional Past Medical History:
Persistent Atrial Fibrillation
Right calf hematoma requiring evacuation/washout 08/08/2023
Blood loss anemia from bleeding hematoma right calf July 2023
Hypertension
DM-II
NSVT
Obesity-morbid
Chronic HFmrEF
Bilateral DVT lower extremity femoral DVTs at [facility] 07/28/2023
History of DVT / PE 2012
Endometrial Cancer s/p Surgery and XRT
LIZBETH on CPAP
Constipation
Past Surgical History: Reports Other
Additional Past Surgical History:
06/29: MV Replacement, TV Repair, MAZE, HARVINDER Exclusion
07/05: PPM Revision
07/06: Thoracentesis for 550cc serosanguinous fluid
PPM (2017)
CHELITA / BSO
T&A
D&C
Carpal Tunnel Release
Cataracts
Social History
Tobacco: Non-smoker
Alcohol: None
Drug: None
Personal: Single
Living: Other (Current [facility])
Employment: Retired
Family History
Family History: Early CAD (Father first IA age 47-second [place] age 57 mother Alzheimer's 1 sister adopted)
Allergies / Home Medications
Allergies reflects when Allergies were last updated in makerist.
Home Medications with original date entered in makerist
Allergy/Medication List:
Allergies
Allergy/AdvReac Type Severity Reaction Status Date / Time
oxytetracycline Allergy Hives Verified 06/23/23 15:29
[From Terramycin]
Home Medications
ascorbic acid (vitamin C) 500 mg tablet (Vitamin C) 500 mg PO DAILY Supplement 06/23/23
cyanocobalamin (vitamin B-12) 1,000 mcg tablet 1,000 mcg PO DAILY Supplement 06/23/23
loratadine 10 mg tablet 10 mg PO DAILY Allergies 06/23/23
melatonin 3 mg tablet 3 mg PO HS sleep 06/23/23
pantoprazole 40 mg tablet,delayed release 40 mg PO DAILY Gastrointestinal Issue 06/23/23
amlodipine 5 mg tablet 7.5 mg (1.5 x 5 mg) PO DAILY hypertension #30 tabs 07/08/23
amiodarone 200 mg tablet 200 mg PO DAILY Arrhythmia #14 tabs 07/09/23
acetaminophen 325 mg capsule 650 mg PO Q6H PRN mild pain / fever 08/01/23
carvedilol 25 mg tablet 25 mg PO BID Heart Disease/Condition 08/01/23
polyethylene glycol 3350 17 gram oral powder packet (Miralax) 17 g PO DAILY Constipation 08/01/23
repaglinide 1 mg tablet 1 mg PO AC Diabetes 08/01/23
furosemide 80 mg tablet 80 mg PO BID Heart Failure #30 tabs 08/18/23
bisacodyl 5 mg tablet,delayed release 10 mg PO HSPRN PRN constipation 09/01/23
cephalexin 500 mg capsule 500 mg PO Q8H 09/01/23
fluticasone propionate 50 mcg/actuation nasal spray,suspension 2 spray intranasal DAILY 09/01/23
hydrocortisone 1 % topical ointment 1 applic topical BID B/L legs 09/01/23
magnesium hydroxide 400 mg/5 mL oral suspension (Milk of Magnesia) 30 ml PO DAILYPRN PRN constipation 09/01/23
potassium chloride 20 mEq oral packet 20 meq PO TID Hypokalemia 09/01/23
psyllium 1 packet PO DAILY 09/01/23
sodium phosphates 19 gram-7 gram/118 mL enema (Fleet Enema) 118 ml [place] [id number] PRN constipation, no bm 72 hrs 09/01/23
therapeutic multivitamin 1 tab PO DAILY 09/01/23
warfarin 2 mg tablet 2 mg PO DAILY 09/01/23
Review of Systems
-
History Source: Patient
A 12 point ROS was completed and negative except as noted: Yes
Constitutional: Denies Fever or Chills
EENT: Denies Sore Throat or Runny Nose
Respiratory: Denies Cough or Trouble Breathing
Cardiac: Denies Chest Pain, Diaphoresis, Palpitations or Syncope
Abdomen/GI: Denies Abdominal Pain, Nausea, Vomiting, Diarrhea, Constipated, Bloody Stools or Black Stools
: Denies Dysuria, Frequency, Flank Pain, Incontinence, Difficulty Voiding, Urgency or Bleeding
Musculoskeletal: Reports Edema (Chronic lymphedema from thighs to lower legs); Denies Joint Pain
Skin: Reports Other (Open medial aspect right calf hematoma with surrounding erythema currently with Benton wrap in place); Denies Itching or Rash
Neurological: Denies Dizzy or Headache
Endocrine: Reports No Symptoms
Hematologic/Lymphatic: Reports No Symptoms
Psych: Reports Calm
Physical Exam
Vital Signs
Vital Signs
Temp Pulse Resp BP Pulse Ox
98.1 F 82 22 137/61 95
09/01/23 12:44 09/01/23 14:00 09/01/23 13:45 09/01/23 14:00 09/01/23 13:45
Physical Exam
General: Obese
HEENT: NormoCephalic, Anicteric, Moist mucous membranes, PERRLA, [place] Conjunctivae and No Ptosis
Respiratory: Clear; No Wheezes, Rales or Rhonchi
Cardiac: S1/S2, Regular Rhythm and Peripheral Edema (Chronic bilateral lymphedema thighs to lower legs); No Murmur, Rub or Gallop
Breast: Deferred by me
GI: Soft, Non Tender, Non Distended, Normal Bowel Sounds and No Hepatosplenomegaly
Genito-urinary: Deferred by me
Musculoskeletal: No Clubbing, No Cyanosis, Edema, Left Lower Extremity (Chronic leg lymphedema) and Edema, Right Lower Extremity (Open medial aspect right calf hematoma with surrounding erythema currently with Benton wrap in place); No Edema, Left
Upper Extremity or Edema, Right Upper Extremity
Skin: Other (Open medial aspect right calf hematoma with surrounding erythema currently with Benton wrap in place); No Warm, Dry or Rash
Neuro: AO x 3, No Motor Deficits, Cranial Nerves Intact and No Sensory Deficits; No Slurred Speech, Facial Droop, Tremors or Sedated
Laboratory Results
-
09/01/23 13:33
09/01/23 13:33
Laboratory Results
PT 20.5 Sec (11.4-14.6) H 09/01/23 13:19
INR 1.78 09/01/23 13:19
Data Reviewed
-
Lab Data: Labs Reviewed by me
Impression/Plan
-
Impression/plan:
Admit to telemetry
#Right calf hematoma oozing open wound with cellulitis
#S/p right calf hematoma evacuation/washout 08/08/2023 with post drains and sutures removed prior to DC
Status post 4 days oral Keflex
Hgb 9.7, INR 1.78
-Consult Dr. Pena
-IV Ancef
-Plan for OR in a.m. with debridement-per Dr. Pena
-N.p.o. after midnight
-Hold oral Coumadin
-Start heparin drip no bolus to start now and stop at 4 AM on 09/02/2023 patient did receive Coumadin 2 mg dose on 08/31/2023 at 1800
-Consult wound care
# Bilateral LE DVT 07/27/2022
- History of DVT / PE 2012
- Patient noted on US to have bilateral femoral DVTs at [facility] (07/27) with goal INR 2-3
-Hold oral Coumadin
-Start heparin drip no bolus
#Hypokalemia
K3.4
Will give KCl 40 mEq p.o.
# Persistent Atrial Fibrillation
- s/p MAZE MVR and TR repair and HARVINDER exclusion on 06/29.
- Outpatient cardioversion planned, however anticoagulation has to be determined first per cardiology.
-Continue amiodarone 200 mg daily
- Continue labetalol, carvedilol and amiodarone.
- Minimize/avoid use of QT prolonging agents as possible.
Patient's rotary filter operator is Dr. Fran Abbasi
INR 1.78
-Patient on Coumadin but with current calf hematoma losing
#History of blood loss anemia from prior hematoma
Did require 6 units PRBCs on July admission
Hgb 9.7
-type and screen
# Hx Bilateral pleural effusion 2/2 CHF
-S/p right thoracentesis 08/05/2023 with removal of 500 cc serosanguineous pleural fluid
-S/p left thoracentesis 08/06/2023 with removal of 400 cc serosanguineous pleural fluid
# Staph epidermidis Bacteremia - ruled out as contaminant on recent admission
- Coagulase-negative staph identified from culture 08/01,
- KARL/TTE negative for endocarditis
-
# Chronic HFmrEF
-resolved
-cont PO lasix 80mg twice daily.
# Constipation hx
-Bowel regimen as needed
# DM-II
Accu-Cheks with SSI
- cont repaglinide
# LIZBETH on CPAP continued
# Morbid Obesity due to excess calories�BMI 43.4
- Affects all aspects of care.
- Encourage healthy diet and increased activity when able with goal of weight reduction.
# Urinary retention hx
-Monitor urine output
DVT prophylaxis
Hold Coumadin start IV heparin drip
Full code
[2023-09-01] MEDS: ANCEF 5 IV (15:33)
[2023-09-01 16:33] LABS: Hematocrit 29.1 % (37.0-47.0); Hemoglobin 9.5 g/dL (12.0-16.0); Mean Corp Hgb Conc. 32.6 g/dL (33.0-37.0); Mean Corpuscular Hgb 27.8 pg (27.0-31.0); Mean Corpuscular Volume 85.1 fL (81.0-99.0); Mean Platelet Volume 8.9 fL (7.4-10.4); Platelet Count 321 10^3/uL (130-400); Red Blood Cell Count 3.42 10^6/uL (4.20-5.40); Red Cell Dist. Width 15.5 % (11.5-14.5); White Blood Cell Count 5.9 10^3/uL (4.8-10.8)
[2023-09-01] MEDS: KCL 40 MEQ PO (16:34)
[2023-09-01] MEDS: HEPARIN 25000 UNITS/250 ML IV (16:40)
[2023-09-01 16:46] LABS: APTT 41.7 Sec (23.4-35.0)
[2023-09-01] MEDS: LASIX 80 MG PO (18:25)
[2023-09-01] MEDS: NOVOLOG FLEXPEN-LOW RESISTANCE SC (18:28)
[2023-09-01 18:34] LABS: Glucose - Point of Care 106 mg/dl (70-99)
[2023-09-01] MEDS: COREG 25 MG PO (20:42)
[2023-09-01 21:34] LABS: Glucose - Point of Care 126 mg/dl (70-99)
[2023-09-01] MEDS: KLOR-CON 20 MEQ PO (21:41)
[2023-09-01] MEDS: MELATONIN 3 MG PO (21:41)
[2023-09-01 23:35] LABS: APTT > 200 Sec (23.4-35.0)
[2023-09-02] VITALS (10 sets, daily range): BP systolic 94–143; BP diastolic 46–81
--- NOTE | 2023-09-02 04:00 | PTCARENOTE ---
pt Heparin held at 0400 for OR
[2023-09-02] MEDS: ANCEF 5 IV ×3 (04:24→19:19)
[2023-09-02 06:54] LABS: Blood Urea Nitrogen 23 mg/dl (7-17); Calcium 8.8 mg/dl (8.4-10.2); Carbon Dioxide 33 mmol/L (22-30); Chloride 94 mmol/L (98-107); Estimated Creatinine Clearance 56 ml/min; Glucose 94 mg/dl (70-99); Potassium 3.4 mmol/L (3.5-5.1); Sodium 135 mmol/L (135-145); eGFR > 60.00
[2023-09-02 07:14] LABS: Glucose - Point of Care 115 mg/dl (70-99)
--- NOTE | 2023-09-02 08:52 | W.SUR.POST ---
Surgical Immediate Post Op
Note
Pre Op Diagnosis: nonhealing wound
Post Op Diagnosis: same
Procedure Performed: RLE wound debridement and washout, Wound VAC placement
Primary Surgeon: Becky
Assists: Vishal HOLLIS, Aaron HOLLIS
Anesthesia: LMA
Estimated Blood Loss: 20cc
Fluids: see anesthesia flow sheet
Drains/Shunts: none
Specimens/Cultures: culture swabs and tissue culture
Doppler/Duplex/Angio (Y/N):N
Complications: None
Operative Findings:
[2023-09-02 08:56] LABS: Glucose - Point of Care 117 mg/dl (70-99)
--- NOTE | 2023-09-02 09:23 | WOUNDNOTE ---
[facility] RN note: Patient in vascular OR or recovery for debridement and vac placement R calf wound. Octavio stated he didn't see any sacral skin breakdown when he admitted her yesterday. Air chair cushion left on room. Will follow as needed. Patient
admitted from [facility].
[2023-09-02] MEDS: NOVOLOG FLEXPEN-LOW RESISTANCE SC (09:55)
[2023-09-02 10:24] LABS: Glycohemoglobin (HgbA1c) 5.1 % (4.0-5.6)
[2023-09-02] MEDS: NORVASC 7.5 MG PO (10:39)
[2023-09-02] MEDS: PACERONE 200 MG PO (10:39)
[2023-09-02] MEDS: VITAMIN B-12 1000 MCG PO (10:39)
[2023-09-02] MEDS: LASIX 80 MG PO ×2 (10:39→16:00)
[2023-09-02] MEDS: COREG 25 MG PO ×2 (10:39→19:21)
[2023-09-02] MEDS: KLOR-CON 20 MEQ PO ×3 (10:40→22:15)
[2023-09-02] MEDS: METAMUCIL, KONSYL 1 PACKET PO (10:40)
[2023-09-02] MEDS: CLARITIN 10 MG PO (10:40)
[2023-09-02] MEDS: PROTONIX 40 MG PO (10:40)
[2023-09-02] MEDS: MIRALAX 17 GRAMS PO (10:41)
--- NOTE | 2023-09-02 10:43 | WOUNDNOTE ---
THIGHS (POSTERIOR MEDIAL)
--- NOTE | 2023-09-02 10:45 | WOUNDNOTE ---
[facility] RN note: Patient admitted with open R calf hematoma. s/p OR debridement with vac placement today (serial #[id number]).
See H&P for complete history.
PMH: urinary retention, obesity, A fib (Coumadin) R calf hematoma evacuation by Dr. Chowdhury 08/08/23, bilateral femoral DVT 07/28/23 at [facility], CHF, endocarditis, MVR, MAZE, PPM revision, bilateral pleural effusion, s/p thoracentesis, constipation,
DM, LIZBETH (CPAP), PE/DVT 2012, endometrial cancer s/p surgery and radiation therapy, lymphedema.
Wound Location and type/assessment: Patient admitted with: Bilateral sacral/buttocks purple ecchymotic areas with open areas (stage 2 pressure injury vs DTI?), posterior medial linear red ecchymotic areas suspect from previous diaper use. R
posterior calf full thickness surgical wound (see Claudia Walker's post op report for photo) with wound vac intact.
Appetite: fair.
Pressure redistribution devices in place: [employer] Accumax. Patient needs assist of 2 to turn currently.
Plan: Silicone border foam applied to bilateral sacral/buttocks. LLE ABD pad (to protect linear dry scab R medial ankle) changed and rewrapped L knee high Benton wrap. R knee high Benton wrap clean, dry and intact. Patient turned and waffle air overlay
applied with help from GRIFFIN Cunningham and EDUARDA Jefferson. Heels off bed with pillows. Air chair cushion added on top of R lower calf pillow for cushioning.
Will confirm orders with hospitalist or Vascular PATTERN MARKER and discussed with GRIFFIN Cunningham.
Care plan to be updated and will follow as needed.
Note to case management of equipment requested for discharge: Wound vac needed at SNF.
[2023-09-02] MEDS: KCL 270 MEQ IV (10:48)
--- NOTE | 2023-09-02 12:01 | W.PN.HOSP.TC ---
Today's Communication/Plan
-
abx
wound vac
f/u cultures
restart anticoag once cleared by surgery
Assessment / Plan
Assessment / Plan
Physical Exam
General: Obese
HEENT: NormoCephalic, Anicteric, Moist mucous membranes, PERRLA, [place] Conjunctivae and No Ptosis
Respiratory: Clear; No Wheezes, Rales or Rhonchi
Cardiac: S1/S2, Regular Rhythm and Peripheral Edema (Chronic bilateral lymphedema thighs to lower legs); No Murmur, Rub or Gallop
Breast: Deferred by me
GI: Soft, Non Tender, Non Distended, Normal Bowel Sounds and No Hepatosplenomegaly
Genito-urinary: Deferred by me
Musculoskeletal: No Clubbing, No Cyanosis, Edema, Left Lower Extremity (Chronic leg lymphedema) and Edema, Right Lower Extremity (Open medial aspect right calf hematoma with surrounding erythema currently with Benton wrap in place); No Edema, Left
Upper Extremity or Edema, Right Upper Extremity
Skin: OACe wrapped b/lo LE
Neuro: AO x 3, No Motor Deficits, Cranial Nerves Intact and No Sensory Deficits; No Slurred Speech, Facial Droop, Tremors or Sedated
#Right calf hematoma oozing open wound with cellulitis
#S/p right calf hematoma evacuation/washout 08/08/2023 with post drains and sutures removed prior to DC
-09/01 - debridement of right posterior calf wound
- Cont cefazolin
-Wound care
-Hold oral Coumadin until cleared by surgery
-F/u cultures from wound
-Wound vac in place
#Hypokalemia
-monitor and replete
# Bilateral LE DVT 07/27/2022
- History of DVT / PE 2012
- Patient noted on US to have bilateral femoral DVTs at [facility] (07/27) with goal INR 2-3
-Hold oral Coumadin, resume once ok by surgery
#Hypokalemia
K3.4
Will give KCl 40 mEq p.o.
# Persistent Atrial Fibrillation
- s/p MAZE MVR and TR repair and HARVINDER exclusion on 06/29.
- Outpatient cardioversion planned, however anticoagulation has to be determined first per cardiology.
-Continue amiodarone 200 mg daily
- Continue labetalol, carvedilol and amiodarone.
- Minimize/avoid use of QT prolonging agents as possible.
Patient's master control technician is Dr. Fran Abbasi
-Patient on Coumadin -hold due to hematoma - restart when ok with surgery
#History of blood loss anemia from prior hematoma
Did require 6 units PRBCs on July admission
ctm
-type and screen
# Hx Bilateral pleural effusion 2/2 CHF
-S/p right thoracentesis 08/05/2023 with removal of 500 cc serosanguineous pleural fluid
-S/p left thoracentesis 08/06/2023 with removal of 400 cc serosanguineous pleural fluid
# Staph epidermidis Bacteremia - ruled out as contaminant on recent admission
- Coagulase-negative staph identified from culture 08/01,
- KARL/TTE negative for endocarditis
# Chronic HFmrEF
-resolved
-cont PO lasix 80mg twice daily.
# Constipation hx
-Bowel regimen as needed
# DM-II
Accu-Cheks with SSI
- cont repaglinide
# LIZBETH on CPAP continued
# Morbid Obesity due to excess calories�BMI 43.4
- Affects all aspects of care.
- Encourage healthy diet and increased activity when able with goal of weight reduction.
# Urinary retention hx
-Monitor urine output
DVT prophylaxis
holding coumadin, await surg OK for anticoag
Full code
Total time spent on today's encounter was 50 minutes which included time spent in counseling the patient/family regarding diagnosis and treatment plan as listed above, goals of care, and symptom management. Case was discussed with nursing staff,
specialists, and care coordinators/case management. All labs and imaging personally reviewed by me. Remainder the time spent in detailed review of previous records, lab data, imaging, and other medical provider documentation.
Anticipated Discharge: > 48 hours
Subjective/Interval History
-
Date of Service: September 02, 2023
no acute events overnight
Objective Data
-
Labs:
Laboratory Results
09/02/23
06:15
Sodium 135
Potassium 3.4 L
Chloride 94 L
Carbon Dioxide 33 H
BUN 23 H
Creatinine 1.0
Glucose 94
Calcium 8.8
Vital Signs:
Vital Signs
Temp Pulse Resp BP Pulse Ox
98.5 F 86 11 120/65 97
09/02/23 09:45 09/02/23 09:45 09/02/23 09:45 09/02/23 09:45 09/02/23 09:45
I&O
09/01/23 09/02/23 09/03/23
06:59 06:59 06:59
Intake Total 360 / 360 50 / 50
Balance 360 / 360 50 / 50
Review of Systems
-
History Source: Patient
All other systems: Not reviewed unless documented
Data Reviewed
-
Labs: Labs Reviewed by me, Discussed with Physician and Discussed with Patient
[2023-09-02 12:04] LABS: Glucose - Point of Care 214 mg/dl (70-99)
--- NOTE | 2023-09-02 12:15 | WOUNDNOTE ---
WOC RN Note: [place] texted Brenna Duong re: patient will need a wound vac for RLE; large white then large black vac dressing being used, pump setting 125mmhg continuous, change q 48-72hrs. Brenna responded she will let SNF know.
--- NOTE | 2023-09-02 12:27 | OR.RPT ---
Operative Report
Operative Report
Date of Operation: 09/02/2023
Pre Op Diagnosis: Large right posterior calf wound
Post Op Diagnosis: Large right posterior calf wound
Procedure: Sharp excisional debridement of right posterior calf wound (wound dimensions 16 cm x 6 cm x 7 cm)
Surgeon: Devin Pena III, MD
Assistants: TELMA Khalil; TELMA Groves
Ticket Dispenser Changer attestation: Assisted with all portions of the procedure including debridement, pulse lavage and VAC dressing placement
Anesthesia: General
Complications: None
History and Indications for Procedure: 68-year-old female who developed a large right calf hematoma while on systemic anticoagulation. She underwent hematoma evacuation and fasciotomies several weeks prior. She re-presented from an outside
facility with a necrotic draining wound involving her posterior calf. I took her to the operating room for sharp excisional debridement.
Procedure in Detail: Tracy Rojas was correctly identified and placed supine on the operating table. After adequate induction of anesthesia the right lower extremity was positioned, prepped and draped in the usual sterile fashion. Preoperative
antibiotics were administered. A timeout procedure was performed with the nursing and anesthesia staff confirming the patient�s identity as well as the nature and laterality of the procedure.
Using a scalpel, scissors and forceps, sharp excisional debridement was performed on the right calf wound. Necrotic skin and subcutaneous tissue was sharply debrided from the wound. Old hematoma was evacuated from the calf wound cavity which was
quite large. Purulent fluid was identified and cultured. The large calf wound cavity communicated with the medial calf incision which demonstrated areas of dehiscence as well. Debridement of the wound continued to healthy bleeding skin and
subcutaneous tissue. The musculature of the calf was visualized at the base of the wound and appeared to be healthy and pink. The wound dimensions debrided were 16 cm length x 6 cm with x 7 cm depth.
The wound was then aggressively pulse irrigated with 3 L of saline. Hemostasis was achieved at the wound edges and in the wound base. A VAC dressing was applied.
The patient tolerated the procedure well and was taken to the PACU in stable condition
Attestation: I was present and responsible for the entire procedure
Signed:
Devin Pena III, MD
[facility]
[phone] (tnfu)
--- NOTE | 2023-09-02 12:35 | WOUNDNOTE ---
WOC RN Note: Confirmed with Claudia Walker re: bilateral knee high Benton wraps as tolerated; rewrap daily; large white and large black vac dressing used and that vascular service will be changing patient's R calf vac dressing on Thursday.
[2023-09-02] MEDS: NOVOLOG FLEXPEN-LOW RESISTANCE 2 UNITS SC (13:49)
--- NOTE | 2023-09-02 15:42 | CM ---
Addendum entered by Brenna Duong 09/02/23 16:53:
Spoke with Denys from admissions at [facility] [phone]
Reports can accept pt - but they are unable to care for wound vac - they do not have wound vac provider
Requesting return call when closer to d/c
Plan - anticipate snf at d/c
Original Note:
Met with pt at bedside
Pt lives at [facility] in Independent living. Per pt has been admitted to [facility] and several stays at [facility] over the last few months. Currently admitted from [facility]. Pt prefers to
return to [facility] at d/c
Pt reports home DME - rolling walker.
HH - hx with [facility] and [facility]
SNF - [facility]
PCP - Dr Gm Zabala
Pharm - [facility]
Per wound care - pt will need wound vac at SNF
Called [facility] admissions [phone] - LM asking for return call to discuss d/c planning and needs
Plan -anticipate return to [facility] when medically stable
[2023-09-02 16:36] LABS: Glucose - Point of Care 385 mg/dl (70-99)
[2023-09-02] MEDS: NOVOLOG FLEXPEN-LOW RESISTANCE 5 UNITS SC (17:27)
[2023-09-02 18:28] LABS: Hematocrit 26.9 % (37.0-47.0); Hemoglobin 8.8 g/dL (12.0-16.0); Mean Corp Hgb Conc. 32.7 g/dL (33.0-37.0); Mean Corpuscular Hgb 27.9 pg (27.0-31.0); Mean Corpuscular Volume 85.4 fL (81.0-99.0); Mean Platelet Volume 8.9 fL (7.4-10.4); Platelet Count 292 10^3/uL (130-400); Red Blood Cell Count 3.15 10^6/uL (4.20-5.40); Red Cell Dist. Width 15.5 % (11.5-14.5); White Blood Cell Count 7.5 10^3/uL (4.8-10.8)
[2023-09-02 18:41] LABS: APTT 41.6 Sec (23.4-35.0)
[2023-09-02] MEDS: HEPARIN 25000 UNITS/250 ML IV (19:10)
[2023-09-02] MEDS: DESENEX/MITRAZOL/ZEASORB 1 APPLIC TOPICAL (19:19)
[2023-09-02 21:23] LABS: Glucose - Point of Care 334 mg/dl (70-99)
[2023-09-02] MEDS: MELATONIN 3 MG PO (22:15)
[2023-09-03 02:14] LABS: APTT > 200 Sec (23.4-35.0)
--- NOTE | 2023-09-03 02:21 | PTCARENOTE ---
PTT >200, COOKER MEAL Hephziba notified. Protocol followed.
[2023-09-03 04:00] VITALS: BP 122/61
[2023-09-03] MEDS: ANCEF 5 IV (04:17)
[2023-09-03 06:00] VITALS: BMI 41.0
[2023-09-03 07:19] LABS: Glucose - Point of Care 243 mg/dl (70-99)
[2023-09-03 07:33] VITALS: BP 143/70
[2023-09-03 08:03] VITALS: BMI 41.0
[2023-09-03] MEDS: LASIX 80 MG PO ×2 (08:27→15:27)
[2023-09-03] MEDS: PROTONIX 40 MG PO (08:27)
[2023-09-03] MEDS: NORVASC 7.5 MG PO (08:28)
[2023-09-03] MEDS: COREG 25 MG PO ×2 (08:28→20:13)
[2023-09-03] MEDS: DESENEX/MITRAZOL/ZEASORB 1 APPLIC TOPICAL ×2 (08:28→21:15)
[2023-09-03] MEDS: CLARITIN 10 MG PO (08:28)
[2023-09-03] MEDS: HYDROPHOR 1 APPLIC TOPICAL (08:29)
[2023-09-03] MEDS: NOVOLOG FLEXPEN-MODERATE RESISTANCE 3 UNITS SC (08:29)
[2023-09-03] MEDS: MIRALAX 17 GRAMS PO (08:29)
[2023-09-03] MEDS: KLOR-CON 20 MEQ PO ×3 (08:29→22:44)
[2023-09-03] MEDS: METAMUCIL, KONSYL 1 PACKET PO (08:29)
[2023-09-03] MEDS: PACERONE 200 MG PO (08:43)
[2023-09-03] MEDS: VITAMIN B-12 PO (08:45)
[2023-09-03 10:38] LABS: % Basophils 0.1 % (0-2); % Immature Granulocytes 1.3 % (0-0.5); % Lymphocytes 5.6 % (20.5-51.1); % Monocytes 4.2 % (1.7-9.3); % Neutrophils 88.8 % (42.2-75.2); Absolute Immature Granulocytes 0.1 10^3/uL (0-0.05); Absolute Lymphocytes 0.5 10^3/uL (1.2-3.4); Absolute Monocytes 0.4 10^3/uL (0.1-0.6); Absolute Neutrophils 8.3 10^3/uL (1.4-6.5); Hematocrit 27.8 % (37.0-47.0); Mean Corp Hgb Conc. 32.4 g/dL (33.0-37.0); Mean Corpuscular Hgb 28.4 pg (27.0-31.0); Mean Corpuscular Volume 87.7 fL (81.0-99.0); Mean Platelet Volume 9.1 fL (7.4-10.4); Nucleated Red Blood Cells % 0 %; Platelet Count 293 10^3/uL (130-400); Red Blood Cell Count 3.17 10^6/uL (4.20-5.40); Red Cell Dist. Width 15.5 % (11.5-14.5); White Blood Cell Count 9.3 10^3/uL (4.8-10.8)
[2023-09-03 10:49] LABS: INR 2.19; PT 24.6 Sec (11.4-14.6)
[2023-09-03 11:03] LABS: APTT > 200 Sec (23.4-35.0)
[2023-09-03 11:07] LABS: Glucose - Point of Care 268 mg/dl (70-99)
[2023-09-03 11:21] LABS: Blood Urea Nitrogen 31 mg/dl (7-17); Calcium 8.9 mg/dl (8.4-10.2); Carbon Dioxide 30 mmol/L (22-30); Chloride 93 mmol/L (98-107); Estimated Creatinine Clearance 45 ml/min; Glucose 248 mg/dl (70-99); Potassium 4.9 mmol/L (3.5-5.1); Sodium 131 mmol/L (135-145)
[2023-09-03 11:29] VITALS: BP 127/73
--- NOTE | 2023-09-03 11:48 | W.PN.HOSP.TC ---
Today's Communication/Plan
-
wound vac
f/u cultures, cont abx
hep ggt - transition to Coumadin once Cleared by surg
Assessment / Plan
Assessment / Plan
Physical Exam
General: Obese
HEENT: NormoCephalic, Anicteric, Moist mucous membranes, PERRLA, [place] Conjunctivae and No Ptosis
Respiratory: Clear; No Wheezes, Rales or Rhonchi
Cardiac: S1/S2, Regular Rhythm and Peripheral Edema (Chronic bilateral lymphedema thighs to lower legs); No Murmur, Rub or Gallop
Breast: Deferred by me
GI: Soft, Non Tender, Non Distended, Normal Bowel Sounds and No Hepatosplenomegaly
Genito-urinary: Deferred by me
Musculoskeletal: No Clubbing, No Cyanosis, Edema, Left Lower Extremity (Chronic leg lymphedema) and Edema, Right Lower Extremity (Open medial aspect right calf hematoma with surrounding erythema currently with Benton wrap in place); No Edema, Left
Upper Extremity or Edema, Right Upper Extremity
Skin: OACe wrapped b/lo LE
Neuro: AO x 3, No Motor Deficits, Cranial Nerves Intact and No Sensory Deficits; No Slurred Speech, Facial Droop, Tremors or Sedated
#Right calf hematoma oozing open wound with cellulitis
#S/p right calf hematoma evacuation/washout 08/08/2023 with post drains and sutures removed prior to DC
-09/01 - debridement of right posterior calf wound
- Cont Ceftriaxone
-Wound care
-Hold oral Coumadin until cleared by surgery; Hep ggt cont
-F/u cultures from wound: GNB
-Wound vac in place
#Hypokalemia
-monitor and replete
#Hyponatremia
-ctm
# Bilateral LE DVT 07/27/2022
- History of DVT / PE 2012
- Patient noted on US to have bilateral femoral DVTs at [facility] (07/27) with goal INR 2-3
-Hold oral Coumadin, resume once ok by surgery; on hep ggt
#Hypokalemia
monitor and replete
# Persistent Atrial Fibrillation
- s/p MAZE MVR and TR repair and HARVINDER exclusion on 06/29.
- Outpatient cardioversion planned, however anticoagulation has to be determined first per cardiology.
-Continue amiodarone 200 mg daily
- Continue labetalol, carvedilol and amiodarone.
- Minimize/avoid use of QT prolonging agents as possible.
Patient's bonding agent is Dr. Fran Abbasi
-Patient on Coumadin -hold due to hematoma - restart when ok with surgery
#History of blood loss anemia from prior hematoma
Did require 6 units PRBCs on July admission
ctm
-type and screen
# Hx Bilateral pleural effusion 2/2 CHF
-S/p right thoracentesis 08/05/2023 with removal of 500 cc serosanguineous pleural fluid
-S/p left thoracentesis 08/06/2023 with removal of 400 cc serosanguineous pleural fluid
# Staph epidermidis Bacteremia - ruled out as contaminant on recent admission
- Coagulase-negative staph identified from culture 08/01,
- KARL/TTE negative for endocarditis
# Chronic HFmrEF
-resolved
-cont PO lasix 80mg twice daily.
# Constipation hx
-Bowel regimen as needed
# DM-II
Accu-Cheks with SSI
- cont repaglinide
# LIZBETH on CPAP continued
# Morbid Obesity due to excess calories�BMI 43.4
- Affects all aspects of care.
- Encourage healthy diet and increased activity when able with goal of weight reduction.
# Urinary retention hx
-Monitor urine output
DVT prophylaxis
holding coumadin, await surg OK for anticoag; Hep ggt
Full code
Total time spent on today's encounter was 51 minutes which included time spent in counseling the patient/family regarding diagnosis and treatment plan as listed above, goals of care, and symptom management. Case was discussed with nursing staff,
specialists, and care coordinators/case management. All labs and imaging personally reviewed by me. Remainder the time spent in detailed review of previous records, lab data, imaging, and other medical provider documentation.
Anticipated Discharge: 24 - 48 hours
Subjective/Interval History
-
Date of Service: September 03, 2023
no acute events overnight
Objective Data
-
Labs:
Laboratory Results
09/03/23 09/03/23 09/03/23
01:09 06:00 10:12
WBC 9.3
Hgb 9.0 L
Hct 27.8 L
Plt Count 293
PT Cancelled
INR
APTT > 200 H* Cancelled
Sodium
Potassium
Chloride
Carbon Dioxide
BUN
Creatinine
Glucose
Calcium
09/03/23 09/03/23 09/03/23
10:12 10:12 19:20
WBC
Hgb
Hct
Plt Count
PT 24.6 H
INR Cancelled 2.19
APTT > 200 H* Pending
Sodium 131 L
Potassium 4.9 D
Chloride 93 L
Carbon Dioxide 30
BUN 31 H
Creatinine 1.2 H
Glucose 248 H
Calcium 8.9
Vital Signs:
Vital Signs
Temp Pulse Resp BP Pulse Ox
97.9 F 78 16 127/73 98
09/03/23 11:29 09/03/23 11:29 09/03/23 11:29 09/03/23 11:29 09/03/23 11:29
I&O
09/02/23 09/03/23 09/04/23
06:59 06:59 06:59
Intake Total 360 / 360 1250 / 1250
Balance 360 / 360 1250 / 1250
Review of Systems
-
History Source: Patient
All other systems: Not reviewed unless documented
Data Reviewed
-
Labs: Labs Reviewed by me, Discussed with Physician and Discussed with Patient
[2023-09-03] MEDS: ROCEPHIN 1000 MG IV (12:05)
[2023-09-03] MEDS: STERILE WATER FOR INJECTION 10 ML IV (12:05)
--- NOTE | 2023-09-03 12:28 | CM ---
CM confirmed that patient cannot be accepted back to [facility] due to wound vac. Patient is agreeable to additional referrals. She stated that she may want to stay close so is agreeable to SNF's close to [facility]. She would be willing to go
to another SNF closer to her home if needed.
CM sent referrals to
[facility]
[place]
[facility].
--- NOTE | 2023-09-03 12:54 | PN.CDI ---
CDI
- -
CDI:
Physician Documentation Request
Admit Date: 09/01/23 16:27
Dear Doctor Navi,
Clinical Indicators:
Patient admitted with right calf hematoma oozing open wound with cellulitis; s/p Sharp excisional debridement of right posterior calf wound 09/01.
Cr/GFR trend:
09/01/23 09/02/23 09/03/23
13:33 06:15 10:12
Creatinine 0.9 1.0 1.2 H
eGFR > 60.00 > 60.00 48.70
Based on the above, could you clarify in the progress notes, the appropriate diagnosis, if significant, that supports the above abnormalities and additional evaluation, monitoring and/or treatment rendered:
SANA
Rise in creatinine only
Other, please specify
Criteria for SANA*
1 Increase in serum creatinine by > or = to 0.3 mg/dL (> or = to 26.5 micromol/L) within 48 hours, OR
2 Increase in serum creatinine to > or = to 1.5 times baseline, which is known or presumed to have occurred within 7 days, OR
3 Urine volume < 0.5 nL/kg/hour for six hours
Use of terms such as suspected, likely, concern for, or probable (associated with a specific diagnosis that is being evaluated, monitored, or treated as if it exists) are acceptable and can be coded in the inpatient setting, when documented at the
time of discharge.
Thank you,
Katiuska Mosley RN BSN
CDI Specialist
available via tiger text
Please use your independent medical judgment in providing your response.
*Source: Kidney Disease: Improving Global Outcomes (KDIGO) 2012
[2023-09-03] MEDS: NOVOLOG FLEXPEN-MODERATE RESISTANCE 5 UNITS SC (13:21)
--- NOTE | 2023-09-03 14:49 | W.PN.UPDATE ---
Update Note
Progress Note Update
Patient seen and examined
Resting comfortably in bed
Complains of calf pain at the wound site
VAC holding suction and is intact
Planning for VAC change in the OR 09/04/2023
N.p.o. after midnight
Hold heparin on-call to the OR
Call with questions or concerns
Devin Pena III, MD
[facility]
[phone] (dmer)
[2023-09-03] MEDS: HEPARIN 25000 UNITS/250 ML IV (15:26)
[2023-09-03 15:39] VITALS: BP 128/59
[2023-09-03 16:25] LABS: Glucose - Point of Care 196 mg/dl (70-99)
[2023-09-03] MEDS: NOVOLOG FLEXPEN-MODERATE RESISTANCE 1 UNITS SC (18:06)
[2023-09-03 19:24] VITALS: BP 132/65
[2023-09-03 20:02] LABS: APTT 175.8 Sec (23.4-35.0)
[2023-09-03 21:53] LABS: Glucose - Point of Care 286 mg/dl (70-99)
[2023-09-03] MEDS: MELATONIN 3 MG PO (22:44)
[2023-09-03 23:45] VITALS: BP 92/63
[2023-09-04] VITALS (15 sets, daily range): BP systolic 112–149; BP diastolic 58–103; PULSE 94; BMI 41.6
--- NOTE | 2023-09-04 03:31 | PTCARENOTE ---
Patient refused to get changed/ repositioned at this time.
[2023-09-04 03:51] LABS: APTT 115.7 Sec (23.4-35.0)
[2023-09-04] MEDS: PACERONE 200 MG PO (07:56)
[2023-09-04] MEDS: NORVASC 7.5 MG PO (07:56)
[2023-09-04] MEDS: CLARITIN 10 MG PO (07:56)
[2023-09-04] MEDS: PROTONIX 40 MG PO (07:56)
[2023-09-04] MEDS: LASIX 80 MG PO ×2 (07:56→15:20)
[2023-09-04] MEDS: VITAMIN B-12 1000 MCG PO (07:56)
[2023-09-04] MEDS: MIRALAX PO (07:57)
[2023-09-04] MEDS: METAMUCIL, KONSYL PO (07:57)
[2023-09-04] MEDS: COREG 25 MG PO ×2 (07:58→21:33)
[2023-09-04] MEDS: HYDROPHOR 1 APPLIC TOPICAL (07:58)
[2023-09-04 07:59] LABS: Glucose - Point of Care 144 mg/dl (70-99)
[2023-09-04] MEDS: DESENEX/MITRAZOL/ZEASORB 1 APPLIC TOPICAL ×2 (07:59→21:34)
[2023-09-04] MEDS: KLOR-CON PO (07:59)
[2023-09-04] MEDS: NOVOLOG FLEXPEN-MODERATE RESISTANCE SC ×2 (07:59→11:39)
--- NOTE | 2023-09-04 10:42 | W.SUR.POST ---
Surgical Immediate Post Op
Note
Pre Op Diagnosis: RLE infected leg wound
Post Op Diagnosis: RLE infected leg wound
Procedure Performed: Wound vac exchange under anesthesia, wound measurements [id number]
Primary Surgeon: Devin Pena III, MD
Assist: Malia HOLLIS and TELMA Groves
Anesthesia: MAC
Estimated Blood Loss: 0 ml
Fluids: See anesthesia flow sheet
Drains/Shunts: N/A
Specimens/Cultures: N/A
Doppler/Duplex/Angio (Y/N): N
Complications: None
Operative Findings: Successful placement of new wound vac
[2023-09-04 10:59] LABS: Glucose - Point of Care 139 mg/dl (70-99)
--- NOTE | 2023-09-04 11:15 | OR.RPT ---
Addendum entered and electronically signed by Devin Finn III, MD 09/08/23 07:26:
Wound dimensions for VAC dressin cm x 6 cm x 7 cm
Original Note:
Operative Report
Operative Report
DATE OF SURGERY: 09/04/2023
PRE OP DIAGNOSIS: Right calf wound with VAC dressing
POST OP DIAGNOSIS: Right calf wound with VAC dressing
SURGEON: Devin Finn III, MD
AIR REDUCTION EQUIPMENT OPERATOR: TELMA Groves; TELMA Jennings (assisted with all portions of this procedure, start to finish)
ANESTHESIA: Sedation
HISTORY AND INDICATION FOR PROCEDURE: 68 yo female with large right calf wound status post debridement and VAC dressing. OR today for dressing change under anesthesia.
PROCEDURE IN DETAIL: Tracy Rojas was correctly identified and positioned supine on her hospital bed. A time out was performed confirming the patient's identity as well as the nature and laterality of the procedure. After adequate induction of
anesthesia the VAC dressing adhesive and sponges were removed from the wounds. The wounds were inspected. The tissue was healthy appearing throughout. No purulent fluid was identified. The black VAC sponge was cut to the appropriate size and placed
in the posterior calf wound as well as the medial calf wound. Adhesive dressings were applied. Negative pressure was applied and a good seal was achieved. The patient tolerated the procedure well and was taken to the recovery area in good condition.
ATTESTATION: I was present and responsible for the entire procedure.
SIGNED:
DEVIN FINN III, MD
[facility]
--- NOTE | 2023-09-04 12:00 | PTCARENOTE ---
Pt returned from PACU, VSS, AOx3, diet ordered.
[2023-09-04] MEDS: ROCEPHIN 1000 MG IV (12:06)
[2023-09-04] MEDS: STERILE WATER FOR INJECTION 10 ML IV (12:07)
[2023-09-04 12:17] LABS: Hematocrit 26.8 % (37.0-47.0); Hemoglobin 9.1 g/dL (12.0-16.0); Mean Corpuscular Hgb 28.3 pg (27.0-31.0); Mean Corpuscular Volume 83.5 fL (81.0-99.0); Platelet Count 272 10^3/uL (130-400); Red Blood Cell Count 3.21 10^6/uL (4.20-5.40); Red Cell Dist. Width 15.9 % (11.5-14.5); White Blood Cell Count 6.7 10^3/uL (4.8-10.8)
[2023-09-04 12:26] LABS: APTT 57.8 Sec (23.4-35.0)
[2023-09-04 12:37] LABS: Blood Urea Nitrogen 37 mg/dl (7-17); Calcium 9.1 mg/dl (8.4-10.2); Carbon Dioxide 31 mmol/L (22-30); Chloride 94 mmol/L (98-107); Estimated Creatinine Clearance 50 ml/min; Glucose 118 mg/dl (70-99); Potassium 4.1 mmol/L (3.5-5.1); Sodium 134 mmol/L (135-145); eGFR 54.06
[2023-09-04] MEDS: HEPARIN 8100 UNITS IV (13:01)
--- NOTE | 2023-09-04 14:02 | W.PN.HOSP.TC ---
Today's Communication/Plan
-
wound vac exchange
f/u cultures
cont abx
Assessment / Plan
Assessment / Plan
Physical Exam
General: Obese
HEENT: NormoCephalic, Anicteric, Moist mucous membranes, PERRLA, [place] Conjunctivae and No Ptosis
Respiratory: Clear; No Wheezes, Rales or Rhonchi
Cardiac: S1/S2, Regular Rhythm and Peripheral Edema (Chronic bilateral lymphedema thighs to lower legs); No Murmur, Rub or Gallop
Breast: Deferred by me
GI: Soft, Non Tender, Non Distended, Normal Bowel Sounds and No Hepatosplenomegaly
Genito-urinary: Deferred by me
Musculoskeletal: No Clubbing, No Cyanosis, Edema, Left Lower Extremity (Chronic leg lymphedema) and Edema, Right Lower Extremity (Open medial aspect right calf hematoma with surrounding erythema currently with Benton wrap in place); No Edema, Left
Upper Extremity or Edema, Right Upper Extremity
Skin: OACe wrapped b/lo LE
Neuro: AO x 3, No Motor Deficits, Cranial Nerves Intact and No Sensory Deficits; No Slurred Speech, Facial Droop, Tremors or Sedated
#Right calf hematoma oozing open wound with cellulitis
#S/p right calf hematoma evacuation/washout 08/08/2023 with post drains and sutures removed prior to DC
-09/01 - debridement of right posterior calf wound
- Cont Ceftriaxone
-Wound care
-Hold oral Coumadin until cleared by surgery; Hep ggt cont
-F/u cultures from wound: GNB
-Wound vac in place; exchange today
-ID consulted
#Hypokalemia
-monitor and replete
#Hyponatremia
-ctm
# Bilateral LE DVT 07/27/2022
- History of DVT / PE 2012
- Patient noted on US to have bilateral femoral DVTs at [facility] (07/27) with goal INR 2-3
-Hold oral Coumadin, resume once ok by surgery; on hep ggt
#Hypokalemia
monitor and replete
# Persistent Atrial Fibrillation
- s/p MAZE MVR and TR repair and HARVINDER exclusion on 06/29.
- Outpatient cardioversion planned, however anticoagulation has to be determined first per cardiology.
-Continue amiodarone 200 mg daily
- Continue labetalol, carvedilol and amiodarone.
- Minimize/avoid use of QT prolonging agents as possible.
Patient's music educator is Dr. Fran Abbasi
-Patient on Coumadin -hold due to hematoma - restart when ok with surgery
#History of blood loss anemia from prior hematoma
Did require 6 units PRBCs on July admission
ctm
-type and screen
# Hx Bilateral pleural effusion 2/2 CHF
-S/p right thoracentesis 08/05/2023 with removal of 500 cc serosanguineous pleural fluid
-S/p left thoracentesis 08/06/2023 with removal of 400 cc serosanguineous pleural fluid
# Staph epidermidis Bacteremia - ruled out as contaminant on recent admission
- Coagulase-negative staph identified from culture 08/01,
- KARL/TTE negative for endocarditis
# Chronic HFmrEF
-resolved
-cont PO lasix 80mg twice daily.
# Constipation hx
-Bowel regimen as needed
# DM-II
Accu-Cheks with SSI
- cont repaglinide
# LIZBETH on CPAP continued
# Morbid Obesity due to excess calories�BMI 43.4
- Affects all aspects of care.
- Encourage healthy diet and increased activity when able with goal of weight reduction.
# Urinary retention hx
-Monitor urine output
DVT prophylaxis
holding coumadin, await surg OK for anticoag; Hep ggt
Full code
Total time spent on today's encounter was 52 minutes which included time spent in counseling the patient/family regarding diagnosis and treatment plan as listed above, goals of care, and symptom management. Case was discussed with nursing staff,
specialists, and care coordinators/case management. All labs and imaging personally reviewed by me. Remainder the time spent in detailed review of previous records, lab data, imaging, and other medical provider documentation.
Anticipated Discharge: > 48 hours
Subjective/Interval History
-
Date of Service: September 04, 2023
wound vac change today
Objective Data
-
Labs:
Laboratory Results
09/04/23 09/04/23 09/04/23
02:59 12:05 19:00
WBC 6.7
Hgb 9.1 L
Hct 26.8 L
Plt Count 272
APTT 115.7 H 57.8 H Pending
Sodium 134 L
Potassium 4.1
Chloride 94 L
Carbon Dioxide 31 H
BUN 37 H
Creatinine 1.1 H
Glucose 118 H
Calcium 9.1
Vital Signs:
Vital Signs
Temp Pulse Resp BP Pulse Ox
98.0 F 77 18 124/103 96
09/04/23 12:00 09/04/23 12:00 09/04/23 12:00 09/04/23 12:00 09/04/23 12:00
I&O
09/03/23 09/04/23 09/05/23
06:59 06:59 06:59
Intake Total 1250 / 1250 1440 / 1440 100 / 100
Balance 1250 / 1250 1440 / 1440 100 / 100
Review of Systems
-
History Source: Patient
All other systems: Not reviewed unless documented
Data Reviewed
-
Labs: Labs Reviewed by me, Discussed with Physician and Discussed with Patient
[2023-09-04] MEDS: KLOR-CON 20 MEQ PO ×2 (14:20→21:34)
[2023-09-04] MEDS: SENOKOT-S 1 TABLET PO (14:26)
--- NOTE | 2023-09-04 14:57 | CON.ID ---
Consultation
-
Date/Time Consultation Requested: 09/04/2023 1009
Date/Time Consultation Performed: 09/04/2023 1500
Requesting Provider: Vishal
Performing Provider: Prachi
Reason for Consultation: Wound infection
Chief Complaint / Past History
History of Present Illness
Tracy Rjoas is a 68 yo female with a sig PMH of recent MVR, TV repair, MAZE procedure and AA clip on 06/30/23. The patient was hospitalized here at [facility] from 06/29 through 07/08. Additionally, she underwent PPM revision on
07/06/2023. Thereafter, the patient was transferred to rehab where she had progressive dyspnea. On 07/27/2023 the patient was admitted to [facility], and while there she was treated for pneumonia. Blood cultures obtained at that time
were positive for Staph epidermidis. She has been transferred back to [facility] on 07/31 for further evaluation of suspected endocarditis.
She underwent evaluation here again for IE, but cultures were unrevealing. Her hospital course was significant for a spontaneous right calf bleed which required evacuation on 08/07. She was discharged on 08/17 off abx, but presented back to the ER on
08/23 secondary to bleeding from the site. She was discharged that day, but presents back to the ER on 08/31 secondary to ongoing bleeding in the area. A wound culture has been obtained which shows multiple organisms and ID is asked for further abx
management.
Past History
Additional Past Medical History:
HTN
A-fib
DM
Obesity
CHF
Hx DVT
Hx endometrial CA (s/p SX and XRT)
Additional Past Surgical History:
Mitral valve replacement / tricuspid valve repair / MAZE (06/30/23)
PPM (2017; revision 07/06/23)
Tonsillectomy
D&C
Carpal tunnel release
Cataract surgery
Allergy History:
oxytetracycline [From Terramycin] Allergy (Verified 06/23/23 15:29)
Hives
Medications Reviewed: Yes
Current Antibiotics:
Ceftriaxone
Social History
Tobacco: Non-Smoker
Alcohol: None
Drug: None
Personal: Single
Living: Other (rehab)
Employment: Not Employed
Family History
Family History: Not Pertinent
Review of Systems
Vital Signs
Temp Pulse Resp BP Pulse Ox
98.2 F 75 18 113/58 96
09/04/23 14:00 09/04/23 14:00 09/04/23 14:00 09/04/23 14:00 09/04/23 14:00
Physical Exam
Physical Exam
Constitutional: No Acute Distress, Comfortable, Chronically Ill, Non-toxic and Obese
Head: Normocephalic
Eyes: Pupils Equal, Pupils Round, No Conjunctival Hemorrhage and Sclera Anicteric
Oral: No Thrush and No Ulcers
Cardiovascular: Regular Rate and S1/S2; Negative S3/S4
Pulmonary: Non Labored
Gastrointestinal: Soft, Non Tender and Non Distended
Extremities: Edema and Venous Insufficiency
Skin: Warm and Dry
Wound: Other (LLE wound dressed with vac in place)
Neurological: Awake and Alert
Lab / Diagnostic Study Results
09/04/23 12:05
09/04/23 12:05
Abs Immat Gran (auto) 0.1 10^3/uL (0-0.05) H 09/03/23 10:12
Absolute Neuts (auto) 8.3 10^3/uL (1.4-6.5) H 09/03/23 10:12
Absolute Lymphs (auto) 0.5 10^3/uL (1.2-3.4) L 09/03/23 10:12
Absolute Monos (auto) 0.4 10^3/uL (0.1-0.6) 09/03/23 10:12
Absolute Basos (auto) 0.0 10^3/uL (0-0.2) 09/03/23 10:12
Immature Gran % 1.3 % (0-0.5) H 09/03/23 10:12
Neutrophils % 88.8 % (42.2-75.2) H 09/03/23 10:12
Lymphocytes % 5.6 % (20.5-51.1) L 09/03/23 10:12
Monocytes % 4.2 % (1.7-9.3) 09/03/23 10:12
Eosinophils % 0.0 % (0-6) 09/03/23 10:12
Basophils % 0.1 % (0-2) 09/03/23 10:12
PT 24.6 Sec (11.4-14.6) H 09/03/23 10:12
PT Cancelled 09/03/23 10:12
INR 2.19 09/03/23 10:12
INR Cancelled 09/03/23 10:12
Microbiology Results
Micro:
09/02/23 08:22 Wound Culture - Preliminary
Leg - Right Klebsiella pneumoniae
Proteus mirabilis
Diptheroids
Gram Stain - Preliminary
09/02/23 08:22 Anaerobic Culture - Preliminary
Leg - Right Culture pending. Anaerobic cultures are examined after 3
days incubation. Additional information to follow.
09/01/23 13:33 Wound Culture - Final
Surgical Wound Klebsiella pneumoniae
Proteus mirabilis
Gram Stain - Final
09/02/23 20:30 MRSA Screen - Final
Nose No Methicillin Resistant Staphylococcus aureus isolated.
Assessment / Plan
LLE wound infection
- s/p vac placement
Hx spontainous left calf bleed
HTN
A-fib
DM
Obesity
CHF
Hx DVT
Hx endometrial CA (s/p SX and XRT)
Recommendations:
microbiology reviewed.
Transition to cefazolin.
Continue vac.
Will continue to follow with you.
[2023-09-04] MEDS: HEPARIN 25000 UNITS/250 ML IV (15:08)
--- NOTE | 2023-09-04 15:52 | CM ---
Case management following for d/c planning
Chart reviewed
PT to OR today for wound vac exchange
Seen by PT/OT - recommending SNF
Choices obtained - will send updates in Care Port
Will need auth
CM will follow for d/c needs
Plan - anticipate SNF when medically stable
[2023-09-04] MEDS: ANCEF 10 IV (16:52)
[2023-09-04 17:09] LABS: Glucose - Point of Care 157 mg/dl (70-99)
[2023-09-04] MEDS: NOVOLOG FLEXPEN-MODERATE RESISTANCE 1 UNITS SC (17:11)
[2023-09-04 19:55] LABS: APTT > 200 Sec (23.4-35.0)
--- NOTE | 2023-09-04 20:15 | PTCARENOTE ---
@2014;Instructed Dorene on PTT lab: >200.Heparin drip placed on hold.
--- NOTE | 2023-09-04 20:40 | PTCARENOTE ---
@2030; Med sitter obtained for pt.Pt was frequently lowering himself with both legs off the right side of bed,while attempting to get up.Pt would move so quickly as the bed alarm would ring.Pt confused to time and place and not able to follow verbal
directions.
[2023-09-04] MEDS: MELATONIN 3 MG PO (21:34)
[2023-09-04 21:46] LABS: Glucose - Point of Care 184 mg/dl (70-99)
[2023-09-05] MEDS: ANCEF 10 IV ×4 (00:21→23:15)
[2023-09-05 03:00] VITALS: BP 134/65
[2023-09-05 04:26] LABS: Hematocrit 26.4 % (37.0-47.0); Hemoglobin 8.6 g/dL (12.0-16.0); Mean Corp Hgb Conc. 32.6 g/dL (33.0-37.0); Mean Platelet Volume 9.1 fL (7.4-10.4); Platelet Count 259 10^3/uL (130-400); Red Blood Cell Count 3.07 10^6/uL (4.20-5.40); Red Cell Dist. Width 16.1 % (11.5-14.5); White Blood Cell Count 6.1 10^3/uL (4.8-10.8)
[2023-09-05 04:33] LABS: APTT 83.5 Sec (23.4-35.0)
[2023-09-05 04:49] LABS: Calcium 8.9 mg/dl (8.4-10.2); Carbon Dioxide 31 mmol/L (22-30); Estimated Creatinine Clearance 50 ml/min; Potassium 3.3 mmol/L (3.5-5.1); eGFR 54.06
[2023-09-05 05:02] LABS: Blood Urea Nitrogen 39 mg/dl (7-17); Chloride 95 mmol/L (98-107); Glucose 110 mg/dl (70-99); Sodium 136 mmol/L (135-145)
[2023-09-05 06:00] VITALS: BMI 40.8
[2023-09-05 07:00] VITALS: BP 126/61
--- NOTE | 2023-09-05 07:19 | W.PN.VS ---
Today's Communication / Plan
-
VAC intact, next change Thursday
Assessment/Plan
-
POD #3 right calf washout and VAC placement
Plan:
-Next VAC change Thursday
-Continue Benton bandage if patient tolerates
-Out of bed as tolerated
Subjective Data
-
Date of Service: September 05, 2023
Patient at bedside this a.m. Patient was noted to have confusion overnight, attempts to get out of the bed. This a.m. patient is oriented x 3. VAC is in place
Objective Data
-
Vital Signs
Temp Pulse Resp BP Pulse Ox
97.4 F 74 17 134/65 95
09/05/23 03:00 09/05/23 03:00 09/05/23 03:00 09/05/23 03:00 09/05/23 03:00
Intake and Output
09/04/23 09/05/23 09/06/23
06:59 06:59 06:59
Intake Total 1440 / 1440 764 / 764
Balance 1440 / 1440 764 / 764
Intake:
Oral fluids 1440 / 1440 570 / 570
IV fluids (Total) 194 / 194
nss 100 / 100
Other:
How many times incontinent 1
SMALL amount urine
How many times incontinent 2
MODERATE amount urine
How many times incontinent 1 3
SATURATED amount urine
Lab Results
09/05/23 03:52
09/05/23 03:52
Calcium 8.9 mg/dl (8.4-10.2) 09/05/23 03:52
Physical Exam
-
AAOx3
No tachypnea on room air
No tachycardia
Right calf dressing VAC in place, no leak, calf is soft/compressible, Benton bandage intact
Foot warm
Right foot Doppler PT and DP signal
[2023-09-05 08:00] VITALS: BMI 40.8
[2023-09-05 08:12] LABS: Glucose - Point of Care 120 mg/dl (70-99)
[2023-09-05] MEDS: MIRALAX 17 GRAMS PO (09:40)
[2023-09-05] MEDS: METAMUCIL, KONSYL 1 PACKET PO (09:41)
[2023-09-05] MEDS: NORVASC 7.5 MG PO (09:41)
[2023-09-05] MEDS: CLARITIN 10 MG PO (09:42)
[2023-09-05] MEDS: PROTONIX 40 MG PO (09:43)
[2023-09-05] MEDS: VITAMIN B-12 1000 MCG PO (09:43)
[2023-09-05] MEDS: LASIX 80 MG PO ×2 (09:44→18:01)
[2023-09-05] MEDS: DESENEX/MITRAZOL/ZEASORB 1 APPLIC TOPICAL ×2 (09:45→23:21)
[2023-09-05] MEDS: COREG 25 MG PO ×2 (09:45→23:19)
[2023-09-05] MEDS: KLOR-CON 20 MEQ PO ×3 (09:45→23:18)
[2023-09-05] MEDS: PACERONE 200 MG PO (09:51)
[2023-09-05] MEDS: HYDROPHOR 1 APPLIC TOPICAL (09:52)
[2023-09-05] MEDS: NOVOLOG FLEXPEN-MODERATE RESISTANCE SC ×2 (09:54→14:05)
[2023-09-05 11:00] VITALS: BP 115/62
[2023-09-05 11:18] LABS: APTT 68.2 Sec (23.4-35.0)
[2023-09-05 11:44] LABS: Glucose - Point of Care 165 mg/dl (70-99)
[2023-09-05] MEDS: HEPARIN 4000 UNITS IV (11:50)
--- NOTE | 2023-09-05 12:04 | W.PN.HOSP.TC ---
Today's Communication/Plan
-
cefazolin
wound vac change thursday
Assessment / Plan
Assessment / Plan
Physical Exam
General: Obese
HEENT: NormoCephalic, Anicteric, Moist mucous membranes, PERRLA, [place] Conjunctivae and No Ptosis
Respiratory: Clear; No Wheezes, Rales or Rhonchi
Cardiac: S1/S2, Regular Rhythm and Peripheral Edema (Chronic bilateral lymphedema thighs to lower legs); No Murmur, Rub or Gallop
Breast: Deferred by me
GI: Soft, Non Tender, Non Distended, Normal Bowel Sounds and No Hepatosplenomegaly
Genito-urinary: Deferred by me
Musculoskeletal: No Clubbing, No Cyanosis, Edema, Left Lower Extremity (Chronic leg lymphedema) and Edema, Right Lower Extremity (Open medial aspect right calf hematoma with surrounding erythema currently with Benton wrap in place); No Edema, Left
Upper Extremity or Edema, Right Upper Extremity
Skin: OACe wrapped b/lo LE
Neuro: AO x 3, No Motor Deficits, Cranial Nerves Intact and No Sensory Deficits; No Slurred Speech, Facial Droop, Tremors or Sedated
#Right calf hematoma oozing open wound with cellulitis
#S/p right calf hematoma evacuation/washout 08/08/2023 with post drains and sutures removed prior to DC
-POD #3 right calf washout and VAC placement
-Wound Vac change 09/03
-Repeat Wound Vac change Thursday
-narrow to cefazolin
-Appreciate ID, Vascular
-Wound care
-Hold oral Coumadin until cleared by surgery; Hep ggt cont
#Hypokalemia
-monitor and replete
#Hyponatremia
-ctm
# Bilateral LE DVT 07/27/2022
- History of DVT / PE 2012
- Patient noted on US to have bilateral femoral DVTs at [facility] (07/27) with goal INR 2-3
-Hold oral Coumadin, resume once ok by surgery; on hep ggt
#Hypokalemia
monitor and replete
# Persistent Atrial Fibrillation
- s/p MAZE MVR and TR repair and HARVINDER exclusion on 06/29.
- Outpatient cardioversion planned, however anticoagulation has to be determined first per cardiology.
-Continue amiodarone 200 mg daily
- Continue labetalol, carvedilol and amiodarone.
- Minimize/avoid use of QT prolonging agents as possible.
Patient's doffer is Dr. Fran Abbasi
-Patient on Coumadin -hold due to hematoma - restart when ok with surgery
#History of blood loss anemia from prior hematoma
Did require 6 units PRBCs on July admission
ctm
-type and screen
# Hx Bilateral pleural effusion 2/2 CHF
-S/p right thoracentesis 08/05/2023 with removal of 500 cc serosanguineous pleural fluid
-S/p left thoracentesis 08/06/2023 with removal of 400 cc serosanguineous pleural fluid
# Staph epidermidis Bacteremia - ruled out as contaminant on recent admission
- Coagulase-negative staph identified from culture 08/01,
- KARL/TTE negative for endocarditis
# Chronic HFmrEF
-resolved
-cont PO lasix 80mg twice daily.
# Constipation hx
-Bowel regimen as needed
# DM-II
Accu-Cheks with SSI
- cont repaglinide
# LIZBETH on CPAP continued
# Morbid Obesity due to excess calories�BMI 43.4
- Affects all aspects of care.
- Encourage healthy diet and increased activity when able with goal of weight reduction.
# Urinary retention hx
-Monitor urine output
DVT prophylaxis
holding coumadin, await surg OK for anticoag; Hep ggt
Full code
Anticipated Discharge: > 48 hours
Subjective/Interval History
-
Date of Service: September 05, 2023
no acute events; wound vac change yesterday; next change Thursday
Objective Data
-
Labs:
Laboratory Results
09/05/23 09/05/23 09/05/23
03:52 10:49 17:45
WBC 6.1
Hgb 8.6 L
Hct 26.4 L
Plt Count 259
APTT 83.5 H 68.2 H Pending
Sodium 136
Potassium 3.3 L
Chloride 95 L
Carbon Dioxide 31 H
BUN 39 H
Creatinine 1.1 H
Glucose 110 H
Calcium 8.9
Vital Signs:
Vital Signs
Temp Pulse Resp BP Pulse Ox
96.8 F L 100 16 126/65 95
09/05/23 07:00 09/05/23 09:51 09/05/23 07:00 09/05/23 09:51 09/05/23 07:00
I&O
09/04/23 09/05/23 09/06/23
06:59 06:59 06:59
Intake Total 1440 / 1440 764 / 764
Balance 1440 / 1440 764 / 764
Review of Systems
-
History Source: Patient
All other systems: Not reviewed unless documented
Data Reviewed
-
Labs: Labs Reviewed by me, Discussed with Physician and Discussed with Patient
--- NOTE | 2023-09-05 13:32 | W.PN.ID1 ---
Date of Service
Date of Service: September 05, 2023
Today's Communication
Continue antibiotics.
Assessment / Plan
LLE wound infection
- s/p vac placement
Hx spontainous left calf bleed
HTN
A-fib
DM
Obesity
CHF
Hx DVT
Hx endometrial CA (s/p SX and XRT)
Recommendations:
Continue cefazolin.
Continue vac Tx
Chief Complaint
-: Other (Right calf wound.)
Subjective / Review of Systems
Review of Systems: No Fever and No Chills
Vital Signs / Physical Exam
Vital Signs
Vital Signs
Temp Pulse Resp BP Pulse Ox
98.2 F 101 16 115/62 97
09/05/23 11:00 09/05/23 11:00 09/05/23 11:00 09/05/23 11:00 09/05/23 11:00
Physical Exam
Constitutional: No Acute Distress, Comfortable, Chronically Ill and Non-toxic
Eyes: Sclera Anicteric
Pulmonary: Non Labored
Gastrointestinal: Non Distended
Extremities: Edema and Venous Insufficiency (Left lower extremity)
Wound: Other (VAC in place to right posterior calf wound.)
Neurological: Awake and Alert
Psychological: Calm
Objective Data
Lab Data
Lab Results
09/05/23 03:52
09/05/23 03:52
PT 24.6 Sec (11.4-14.6) H 09/03/23 10:12
PT Cancelled 09/03/23 10:12
INR 2.19 09/03/23 10:12
INR Cancelled 09/03/23 10:12
APTT 68.2 Sec (23.4-35.0) H 09/05/23 10:49
Estimated Creat Clear 50 ml/min 09/05/23 03:52
Most recent labs reviewed.
Micro Results:
09/02/23 08:22 Anaerobic Culture - Preliminary
Leg - Right Culture pending. Anaerobic cultures are examined after 3
days incubation. Additional information to follow.
09/02/23 08:22 Wound Culture - Preliminary
Leg - Right Klebsiella pneumoniae
Proteus mirabilis
Diptheroids
Gram Stain - Preliminary
09/01/23 13:33 Wound Culture - Final
Surgical Wound Klebsiella pneumoniae
Proteus mirabilis
Gram Stain - Final
09/02/23 20:30 MRSA Screen - Final
Nose No Methicillin Resistant Staphylococcus aureus isolated.
[2023-09-05] MEDS: KCL ELIXIR 40 MEQ PO (14:04)
[2023-09-05 15:00] VITALS: BP 135/58
[2023-09-05] MEDS: DULCOLAX 10 MG RECTAL (15:10)
[2023-09-05 16:29] LABS: Glucose - Point of Care 195 mg/dl (70-99)
[2023-09-05] MEDS: NOVOLOG FLEXPEN-MODERATE RESISTANCE 1 UNITS SC (18:04)
[2023-09-05 18:27] LABS: APTT 165.2 Sec (23.4-35.0)
[2023-09-05] MEDS: HEPARIN 25000 UNITS/250 ML IV (20:26)
[2023-09-05 21:27] LABS: Glucose - Point of Care 252 mg/dl (70-99)
[2023-09-05 23:07] VITALS: BP 134/80
[2023-09-05] MEDS: MELATONIN 3 MG PO (23:19)
[2023-09-06 02:32] LABS: APTT 60.6 Sec (23.4-35.0)
[2023-09-06] MEDS: HEPARIN 8100 UNITS IV ×2 (02:49→21:07)
[2023-09-06 07:00] VITALS: BP 149/89
[2023-09-06 08:00] VITALS: BMI 40.8
[2023-09-06 08:08] LABS: Glucose - Point of Care 189 mg/dl (70-99)
[2023-09-06] MEDS: ANCEF 10 IV ×3 (08:53→23:59)
[2023-09-06] MEDS: PROTONIX 40 MG PO (08:53)
[2023-09-06] MEDS: METAMUCIL, KONSYL 1 PACKET PO (08:53)
[2023-09-06] MEDS: KLOR-CON 20 MEQ PO ×3 (08:53→21:25)
[2023-09-06] MEDS: MIRALAX 17 GRAMS PO (08:53)
[2023-09-06] MEDS: LASIX 80 MG PO ×2 (08:53→17:42)
[2023-09-06] MEDS: NORVASC 7.5 MG PO (08:54)
[2023-09-06] MEDS: CLARITIN 10 MG PO (08:54)
[2023-09-06] MEDS: VITAMIN B-12 1000 MCG PO (08:54)
[2023-09-06] MEDS: PACERONE 200 MG PO (08:54)
[2023-09-06] MEDS: DESENEX/MITRAZOL/ZEASORB 1 APPLIC TOPICAL ×2 (08:55→21:25)
[2023-09-06] MEDS: HYDROPHOR 1 APPLIC TOPICAL (08:55)
[2023-09-06] MEDS: COREG 25 MG PO ×2 (08:55→21:25)
[2023-09-06] MEDS: NOVOLOG FLEXPEN-MODERATE RESISTANCE 1 UNITS SC (08:56)
[2023-09-06 09:44] LABS: Hematocrit 30.5 % (37.0-47.0); Hemoglobin 10.1 g/dL (12.0-16.0); Mean Corp Hgb Conc. 33.1 g/dL (33.0-37.0); Mean Corpuscular Hgb 28.2 pg (27.0-31.0); Mean Corpuscular Volume 85.2 fL (81.0-99.0); Mean Platelet Volume 8.9 fL (7.4-10.4); Platelet Count 295 10^3/uL (130-400); Red Blood Cell Count 3.58 10^6/uL (4.20-5.40); White Blood Cell Count 10.8 10^3/uL (4.8-10.8)
[2023-09-06 09:59] LABS: ALT (SGPT) < 10 U/L (0-35); AST (SGOT) 25 U/L (14-36); Albumin 3.8 g/dl (3.5-5.0); Alkaline Phosphatase 103 U/L (38-126); Blood Urea Nitrogen 27 mg/dl (7-17); Calcium 9.6 mg/dl (8.4-10.2); Carbon Dioxide 33 mmol/L (22-30); Chloride 95 mmol/L (98-107); Estimated Creatinine Clearance 54 ml/min; Glucose 169 mg/dl (70-99); Potassium 3.7 mmol/L (3.5-5.1); Sodium 137 mmol/L (135-145); Total Bilirubin 0.6 mg/dl (0.2-1.3); Total Protein 6.5 g/dl (6.3-8.2); eGFR > 60.00
[2023-09-06 11:13] LABS: APTT > 200 Sec (23.4-35.0)
--- NOTE | 2023-09-06 11:19 | PTCARENOTE ---
notified hospitalist per protocol of aptt >200
[2023-09-06 11:53] LABS: Glucose - Point of Care 262 mg/dl (70-99)
--- NOTE | 2023-09-06 13:00 | W.PN.HOSP.TC ---
Addendum entered and electronically signed by Davion Mcelroy MD 09/06/23 17:46:
rise in creatine
Original Note:
Today's Communication/Plan
-
cefazolin
wound vac change thursday
Assessment / Plan
Assessment / Plan
Physical Exam
General: Obese
HEENT: NormoCephalic, Anicteric, Moist mucous membranes, PERRLA, [place] Conjunctivae and No Ptosis
Respiratory: Clear; No Wheezes, Rales or Rhonchi
Cardiac: S1/S2, Regular Rhythm and Peripheral Edema (Chronic bilateral lymphedema thighs to lower legs); No Murmur, Rub or Gallop
Breast: Deferred by me
GI: Soft, Non Tender, Non Distended, Normal Bowel Sounds and No Hepatosplenomegaly
Genito-urinary: Deferred by me
Musculoskeletal: No Clubbing, No Cyanosis, Edema, Left Lower Extremity (Chronic leg lymphedema) and Edema, Right Lower Extremity (Open medial aspect right calf hematoma with surrounding erythema currently with Benton wrap in place); No Edema, Left
Upper Extremity or Edema, Right Upper Extremity
Skin: OACe wrapped b/lo LE
Neuro: AO x 3, No Motor Deficits, Cranial Nerves Intact and No Sensory Deficits; No Slurred Speech, Facial Droop, Tremors or Sedated
#Right calf hematoma oozing open wound with cellulitis
#S/p right calf hematoma evacuation/washout 08/08/2023 with post drains and sutures removed prior to DC
-POD #4 right calf washout and VAC placement
-Wound Vac change 09/03
-Repeat Wound Vac change Thursday
-narrow to cefazolin
-Appreciate ID, Vascular
-Wound care
-Hold oral Coumadin until cleared by surgery; Hep ggt cont
#Hypokalemia
-monitor and replete
#Hyponatremia
-ctm
# Bilateral LE DVT 07/27/2022
- History of DVT / PE 2012
- Patient noted on US to have bilateral femoral DVTs at [facility] (07/27) with goal INR 2-3
-Hold oral Coumadin, resume once ok by surgery; on hep ggt
#Hypokalemia
monitor and replete
# Persistent Atrial Fibrillation
- s/p MAZE MVR and TR repair and HARVINDER exclusion on 06/29.
- Outpatient cardioversion planned, however anticoagulation has to be determined first per cardiology.
-Continue amiodarone 200 mg daily
- Continue labetalol, carvedilol and amiodarone.
- Minimize/avoid use of QT prolonging agents as possible.
Patient's dock manager is Dr. Fran Abbasi
-Patient on Coumadin -hold due to hematoma - restart when ok with surgery
#History of blood loss anemia from prior hematoma
Did require 6 units PRBCs on July admission
ctm
-type and screen
# Hx Bilateral pleural effusion 2/2 CHF
-S/p right thoracentesis 08/05/2023 with removal of 500 cc serosanguineous pleural fluid
-S/p left thoracentesis 08/06/2023 with removal of 400 cc serosanguineous pleural fluid
# Staph epidermidis Bacteremia - ruled out as contaminant on recent admission
- Coagulase-negative staph identified from culture 08/01,
- KARL/TTE negative for endocarditis
# Chronic HFmrEF
-resolved
-cont PO lasix 80mg twice daily.
# Constipation hx
-Bowel regimen as needed
# DM-II
Accu-Cheks with SSI
- cont repaglinide
# LIZBEHT on CPAP continued
# Morbid Obesity due to excess calories�BMI 43.4
- Affects all aspects of care.
- Encourage healthy diet and increased activity when able with goal of weight reduction.
# Urinary retention hx
-Monitor urine output
DVT prophylaxis
holding coumadin, await surg OK for anticoag; Hep ggt
Full code
Anticipated Discharge: > 48 hours
Subjective/Interval History
-
Date of Service: September 06, 2023
No acute events
Objective Data
-
Labs:
Laboratory Results
09/06/23 09/06/23 09/06/23
02:08 09:26 10:39
WBC 10.8
Hgb 10.1 L
Hct 30.5 L
Plt Count 295
APTT 60.6 H Cancelled > 200 H*
Sodium 137
Potassium 3.7
Chloride 95 L
Carbon Dioxide 33 H
BUN 27 H
Creatinine 1.0
Glucose 169 H
Calcium 9.6
Total Bilirubin 0.6
AST 25
ALT < 10
Alkaline Phosphatase 103
Vital Signs:
Vital Signs
Temp Pulse Resp BP Pulse Ox
97.8 F 110 16 149/89 95
09/06/23 07:00 09/06/23 07:00 09/06/23 07:00 09/06/23 07:00 09/06/23 07:00
I&O
09/05/23 09/06/23 09/07/23
06:59 06:59 06:59
Intake Total 764 / 764 1424 / 1424
Output Total 1950 / 1949
Balance 764 / 764 -526 / -526
Review of Systems
-
History Source: Patient
All other systems: Not reviewed unless documented
Physical Exam
-
General: Well Developed, Well Nourished and Comfortable
HEENT: Normocephalic and Atraumatic
Respiratory: Crackles
Cardiac: Irregular Rhythm
GI: Soft and Nontender
Psych: Calm
[2023-09-06] MEDS: NOVOLOG FLEXPEN-MODERATE RESISTANCE 5 UNITS SC (13:11)
[2023-09-06] MEDS: TYLENOL 650 MG PO (13:12)
[2023-09-06 15:00] VITALS: BP 146/83
[2023-09-06 17:36] LABS: Glucose - Point of Care 209 mg/dl (70-99)
[2023-09-06] MEDS: NOVOLOG FLEXPEN-MODERATE RESISTANCE 3 UNITS SC (17:42)
[2023-09-06 20:39] LABS: APTT 55.4 Sec (23.4-35.0)
[2023-09-06] MEDS: MELATONIN 3 MG PO (21:25)
[2023-09-06 21:43] LABS: Glucose - Point of Care 168 mg/dl (70-99)
[2023-09-06 23:25] VITALS: BP 151/67
[2023-09-07] MEDS: FLUSH (NSS) 2 FLUSH IV
[2023-09-07] MEDS: TYLENOL 650 MG PO (00:03)
[2023-09-07] MEDS: HEPARIN 25000 UNITS/250 ML IV (00:24)
[2023-09-07 03:38] LABS: Hematocrit 30.3 % (37.0-47.0); Hemoglobin 9.8 g/dL (12.0-16.0); Mean Corp Hgb Conc. 32.3 g/dL (33.0-37.0); Mean Corpuscular Hgb 28.4 pg (27.0-31.0); Mean Corpuscular Volume 87.8 fL (81.0-99.0); Mean Platelet Volume 8.7 fL (7.4-10.4); Platelet Count 265 10^3/uL (130-400); Red Blood Cell Count 3.45 10^6/uL (4.20-5.40); Red Cell Dist. Width 16.3 % (11.5-14.5); White Blood Cell Count 10.8 10^3/uL (4.8-10.8)
[2023-09-07 04:24] LABS: APTT > 200 Sec (23.4-35.0)
[2023-09-07 04:47] LABS: Carbon Dioxide 31 mmol/L (22-30)
--- NOTE | 2023-09-07 05:00 | PTCARENOTE ---
@4311;Instructed TELMA Mae ,via tiger text,PTT >200 and on hold for 2 hours.
[2023-09-07 05:22] LABS: ALT (SGPT) < 10 U/L (0-35); AST (SGOT) 23 U/L (14-36); Albumin 3.5 g/dl (3.5-5.0); Alkaline Phosphatase 84 U/L (38-126); Blood Urea Nitrogen 21 mg/dl (7-17); Calcium 8.8 mg/dl (8.4-10.2); Chloride 101 mmol/L (98-107); Estimated Creatinine Clearance 60 ml/min; Glucose 121 mg/dl (70-99); Potassium 3.4 mmol/L (3.5-5.1); Sodium 136 mmol/L (135-145); Total Bilirubin 0.4 mg/dl (0.2-1.3); Total Protein 5.6 g/dl (6.3-8.2); eGFR > 60.00
[2023-09-07 07:00] VITALS: BP 135/80
[2023-09-07 08:00] VITALS: BMI 40.8
[2023-09-07 08:17] LABS: Glucose - Point of Care 163 mg/dl (70-99)
[2023-09-07] MEDS: NOVOLOG FLEXPEN-MODERATE RESISTANCE 1 UNITS SC (08:21)
[2023-09-07] MEDS: LASIX 80 MG PO ×2 (08:21→15:20)
[2023-09-07] MEDS: PACERONE 200 MG PO (08:21)
[2023-09-07] MEDS: CLARITIN 10 MG PO (08:22)
[2023-09-07] MEDS: NORVASC 7.5 MG PO (08:22)
[2023-09-07] MEDS: VITAMIN B-12 1000 MCG PO (08:22)
[2023-09-07] MEDS: ANCEF 10 IV ×2 (08:22→15:20)
[2023-09-07] MEDS: COREG 25 MG PO ×2 (08:22→21:55)
[2023-09-07] MEDS: MIRALAX 17 GRAMS PO (08:22)
[2023-09-07] MEDS: KLOR-CON 20 MEQ PO ×3 (08:23→21:47)
[2023-09-07] MEDS: PROTONIX 40 MG PO (08:23)
[2023-09-07] MEDS: METAMUCIL, KONSYL 1 PACKET PO (08:23)
[2023-09-07] MEDS: DESENEX/MITRAZOL/ZEASORB 1 APPLIC TOPICAL ×2 (08:23→21:48)
[2023-09-07] MEDS: HYDROPHOR 1 APPLIC TOPICAL (08:23)
--- NOTE | 2023-09-07 09:44 | PTCARENOTE ---
pt aaox3. anxious tearful at times about current condition. pt states discomfort at sacrum. cream applied repositioned. pt declining pain med at this time. right leg wrap in place with vac dressing underneath. pulses present with Doppler.
heparin gtt running as ordered.
[2023-09-07 10:31] VITALS: BMI 39.7
--- NOTE | 2023-09-07 11:31 | W.PN.ID1 ---
Date of Service
Date of Service: September 07, 2023
Today's Communication
Continue abx.
Assessment / Plan
LLE wound infection
- s/p vac placement
Hx spontainous left calf bleed
HTN
A-fib
DM
Obesity
CHF
Hx DVT
Hx endometrial CA (s/p SX and XRT)
Recommendations:
Continue cefazolin. Likely will be able to transition to oral regimen at D/C.
Continue vac Tx
Chief Complaint
-: Other (Right calf wound.)
Subjective / Review of Systems
Review of Systems: No Fever and No Chills
Vital Signs / Physical Exam
Vital Signs
Vital Signs
Temp Pulse Resp BP Pulse Ox
98.3 F 109 14 135/80 98
09/07/23 07:00 09/07/23 08:22 09/07/23 07:00 09/07/23 08:22 09/07/23 07:00
Physical Exam
Constitutional: No Acute Distress, Comfortable and Non-toxic
Eyes: Sclera Anicteric
Cardiovascular: S1/S2; Negative S3/S4
Pulmonary: Non Labored
Gastrointestinal: Soft and Non Distended
Extremities: Venous Insufficiency (severe; LLE)
Wound: Other (RLE with VAC in place)
Neurological: Awake and Alert
Psychological: Calm
Objective Data
Lab Data
Lab Results
09/07/23 03:25
09/07/23 03:25
PT 24.6 Sec (11.4-14.6) H 09/03/23 10:12
PT Cancelled 09/03/23 10:12
INR 2.19 09/03/23 10:12
INR Cancelled 09/03/23 10:12
APTT > 200 Sec (23.4-35.0) H* 09/07/23 03:25
Estimated Creat Clear 60 ml/min 09/07/23 03:25
Total Bilirubin 0.4 mg/dl (0.2-1.3) 09/07/23 03:25
AST 23 U/L (14-36) 09/07/23 03:25
ALT < 10 U/L (0-35) 09/07/23 03:25
Alkaline Phosphatase 84 U/L (38-126) 09/07/23 03:25
Most recent labs reviewed.
Micro Results:
09/02/23 08:22 Wound Culture - Final
Leg - Right Klebsiella pneumoniae
Proteus mirabilis
Diptheroids
Gram Stain - Final
09/02/23 08:22 Anaerobic Culture - Final
Leg - Right NO ANAEROBES ISOLATED
09/01/23 13:33 Wound Culture - Final
Surgical Wound Klebsiella pneumoniae
Proteus mirabilis
Gram Stain - Final
09/02/23 20:30 MRSA Screen - Final
Nose No Methicillin Resistant Staphylococcus aureus isolated.
[2023-09-07 12:00] VITALS: BP 136/89; PULSE 113
--- NOTE | 2023-09-07 12:11 | W.PN.HOSP.TC ---
Today's Communication/Plan
-
see A/P
Assessment / Plan
Assessment / Plan
Physical Exam
General: Obese
HEENT: NormoCephalic, Anicteric, Moist mucous membranes, PERRLA, [place] Conjunctivae and No Ptosis
Respiratory: Clear; No Wheezes, Rales or Rhonchi
Cardiac: S1/S2, Regular Rhythm and Peripheral Edema (Chronic bilateral lymphedema thighs to lower legs); No Murmur, Rub or Gallop
Breast: Deferred by me
GI: Soft, Non Tender, Non Distended, Normal Bowel Sounds and No Hepatosplenomegaly
Genito-urinary: Deferred by me
Musculoskeletal: No Clubbing, No Cyanosis, Edema, Left Lower Extremity (Chronic leg lymphedema) and Edema, Right Lower Extremity (Open medial aspect right calf hematoma with surrounding erythema currently with Benton wrap in place); No Edema, Left
Upper Extremity or Edema, Right Upper Extremity
Skin: OACe wrapped b/lo LE
Neuro: AO x 3, No Motor Deficits, Cranial Nerves Intact and No Sensory Deficits; No Slurred Speech, Facial Droop, Tremors or Sedated
A/P:
# Right calf hematoma with oozing open wound, with surrounding cellulitis
# s/p right calf hematoma evacuation/washout 08/08/2023 with drains and sutures removed prior to DC
s/p VAC placement, Vac exchanged 09/03 and 09/06
Cont cefazolin with plan to change to PO at the time of discharge
Appreciate ID, Vascular, Wound care
Hold oral Coumadin until cleared by surgery; Cont current Hep ggt
# Hypokalemia
monitor and replete
# Hyponatremia
resolved
# Bilateral LE DVT 07/27/2022
# History of DVT / PE 2012
Patient noted on US to have bilateral femoral DVTs at [facility] (07/27), on Coumadin with INR goal 2-3
Hold oral Coumadin, resume once ok by surgery; Cont current Hep ggt
# Hypokalemia
monitor and replete
# Persistent Atrial Fibrillation
# s/p MAZE MVR and TR repair and HARVINDER exclusion on 06/29.
Outpatient cardioversion planned, however anticoagulation has to be determined first per cardiology.
Continue amiodarone 200 mg daily
Continue labetalol, carvedilol and amiodarone.
Minimize/avoid use of QT prolonging agents as possible.
Patient's remelt pan tank operator is Dr. Fran Abbasi
Patient on Coumadin - hold due to hematoma - restart when ok with surgery
# History of blood loss anemia from prior hematoma
Did require 6 units PRBCs on July admission
Monitor Hgb
# Hx Bilateral pleural effusion 2/2 CHF
S/p right thoracentesis 08/05/2023 with removal of 500 cc serosanguineous pleural fluid
S/p left thoracentesis 08/06/2023 with removal of 400 cc serosanguineous pleural fluid
# Staph epidermidis Bacteremia - ruled out as contaminant on recent admission
Coagulase-negative staph identified from culture 08/01,
KARL/TTE negative for endocarditis
# Chronic HFmrEF
resolved
cont PO lasix 80mg twice daily.
# Constipation hx
Bowel regimen as needed
# DM-II
Accu-Cheks with SSI
cont repaglinide
# LIZBETH on CPAP continued
# Morbid Obesity due to excess calories�BMI 43.4
Affects all aspects of care.
Encourage healthy diet and increased activity when able with goal of weight reduction.
# Urinary retention hx
Monitor urine output
DVT prophylaxis: holding coumadin, await surg OK for anticoag; Hep ggt
Full code
Anticipated Discharge: 24 - 48 hours
Subjective/Interval History
-
Date of Service: September 07, 2023
Objective Data
-
Labs:
Laboratory Results
09/07/23 09/07/23
03:25 12:30
WBC 10.8
Hgb 9.8 L
Hct 30.3 L
Plt Count 265
APTT > 200 H* Pending
Sodium 136
Potassium 3.4 L
Chloride 101
Carbon Dioxide 31 H
BUN 21 H
Creatinine 0.9
Glucose 121 H
Calcium 8.8
Total Bilirubin 0.4
AST 23
ALT < 10
Alkaline Phosphatase 84
Vital Signs:
Vital Signs
Temp Pulse Resp BP Pulse Ox
36.8 C 109 14 135/80 98
09/07/23 07:00 09/07/23 08:22 09/07/23 07:00 09/07/23 08:22 09/07/23 07:00
I&O
09/06/23 09/07/23 09/08/23
06:59 06:59 06:59
Intake Total 1424 / 1424 1200 / 1200
Output Total 1950 / 1950
Balance -526 / -526 1200 / 1200
Review of Systems
-
History Source: Patient
All other systems: Reviewed and negative
Data Reviewed
-
Labs: Labs Reviewed by me
[2023-09-07 12:22] VITALS: BP 136/89; PULSE 113
[2023-09-07 13:00] LABS: Glucose - Point of Care 218 mg/dl (70-99)
[2023-09-07] MEDS: NOVOLOG FLEXPEN-MODERATE RESISTANCE 3 UNITS SC (13:01)
[2023-09-07] MEDS: KCL 40 MEQ PO (13:02)
[2023-09-07 13:15] LABS: APTT 49.7 Sec (23.4-35.0)
[2023-09-07] MEDS: HEPARIN 8100 UNITS IV (13:39)
[2023-09-07] MEDS: DILAUDID 0.25 MG IV (14:30)
--- NOTE | 2023-09-07 15:16 | WOUNDNOTE ---
[facility] RN note: Assisted Claudia Walker with RLE wound vac dressing change. Black foam uses. Patient was premedicated for pain by RN Rk. Patient tolerated well. Wound mostly pink with moderate ss drainage, some cloudy ss drainage from medial deep
section of wound. Sacral/buttocks silicone border foam changed. Sacral/buttocks stage 2 ulcers slightly improved. Silicone border foam applied to red skin along R upper buttocks/posterior hip area. 1cm dry pink partial thickness wound noted on R
upper medial calf. Bilateral knee high Benton wraps applied. Discussed with Claudia Walker, Vascular PA. Heels off bed with air chair cushion. Patient is on a air overlay mattress. Next RLE wound vac dressing change due Wed.
--- NOTE | 2023-09-07 15:16 | W.PN.VS ---
Today's Communication / Plan
-
Discussed with Dr. Chowdhury
Assessment/Plan
-
POD #5 right calf washout and VAC placement
Plan:
-VAC changed at bedside with wound care. See wound care notes for images. Red granulation tissue throughout. No bleeding noted
-Okay to restart Coumadin
-Ready for placement from vascular perspective
-Next VAC change Thursday, wound care
Subjective Data
-
Date of Service: September 07, 2023
Patient seen at bedside this afternoon. Patient doing well overall. VAC intact without leak
Objective Data
-
Vital Signs
Temp Pulse Resp BP Pulse Ox
98.3 F 109 14 135/80 98
09/07/23 07:00 09/07/23 08:22 09/07/23 07:00 09/07/23 08:22 09/07/23 07:00
Intake and Output
09/06/23 09/07/23 09/08/23
06:59 06:59 06:59
Intake Total 1424 / 1424 1200 / 1200
Output Total 1949
Balance -526 / -526 1200 / 1200
Intake:
Oral fluids 1320 / 1320 1200 / 1200
IV piggybacks 104 / 104
Output:
Urine, Voided 1949
Other:
Number of approximated MODERATE 1
amounts of urine
How many times incontinent 3 8
SATURATED amount urine
Number of unmeasured liquid
stools
Rectum 2
Lab Results
09/07/23 03:25
09/07/23 03:25
Calcium 8.8 mg/dl (8.4-10.2) 09/07/23 03:25
Magnesium 2.0 mg/dl (1.6-2.3) 09/06/23 09:26
Total Bilirubin 0.4 mg/dl (0.2-1.3) 09/07/23 03:25
AST 23 U/L (14-36) 09/07/23 03:25
ALT < 10 U/L (0-35) 09/07/23 03:25
Alkaline Phosphatase 84 U/L (38-126) 09/07/23 03:25
Total Protein 5.6 g/dl (6.3-8.2) L 09/07/23 03:25
Albumin 3.5 g/dl (3.5-5.0) 09/07/23 03:25
Physical Exam
-
AAOx3
No tachypnea on room air
No tachycardia
Right calf dressing VAC in place, no leak, calf is soft/compressible, Benton bandage intact
Foot warm
Right foot Doppler PT and DP signal
[2023-09-07 16:46] LABS: Glucose - Point of Care 139 mg/dl (70-99)
[2023-09-07 16:53] VITALS: BMI 39.7
[2023-09-07] MEDS: NOVOLOG FLEXPEN-MODERATE RESISTANCE SC (17:14)
[2023-09-07 20:07] LABS: APTT 134.7 Sec (23.4-35.0)
[2023-09-07 21:34] LABS: Glucose - Point of Care 126 mg/dl (70-99)
[2023-09-07] MEDS: MELATONIN 3 MG PO (21:47)
[2023-09-07 23:00] VITALS: BP 134/67
[2023-09-08] MEDS: ANCEF 10 IV ×2 (00:39→07:48)
[2023-09-08] MEDS: HEPARIN 25000 UNITS/250 ML IV ×2 (01:58→22:25)
[2023-09-08 05:03] LABS: APTT 79.9 Sec (23.4-35.0)
--- NOTE | 2023-09-08 05:03 | PTCARENOTE ---
PTT scheduled and collected at approx 0330. As of 0500, PTT has not been resulted. Lab called - per curb and gutter laborer, back up machine to be used.
[2023-09-08 06:00] VITALS: BMI 39.3
[2023-09-08] MEDS: TYLENOL 650 MG PO (07:49)
[2023-09-08] MEDS: LASIX 80 MG PO (07:49)
[2023-09-08] MEDS: PACERONE 200 MG PO (07:49)
[2023-09-08] MEDS: NORVASC 7.5 MG PO (07:49)
[2023-09-08] MEDS: PROTONIX 40 MG PO (07:49)
[2023-09-08] MEDS: COUMADIN 5 MG PO (07:50)
[2023-09-08] MEDS: COREG 25 MG PO ×2 (07:50→22:24)
[2023-09-08] MEDS: VITAMIN B-12 1000 MCG PO (07:50)
[2023-09-08] MEDS: KLOR-CON 20 MEQ PO ×3 (07:51→22:14)
[2023-09-08] MEDS: METAMUCIL, KONSYL 1 PACKET PO (07:51)
[2023-09-08] MEDS: MIRALAX 17 GRAMS PO (07:51)
[2023-09-08] MEDS: CLARITIN 10 MG PO (07:51)
[2023-09-08] MEDS: HYDROPHOR 1 APPLIC TOPICAL (07:52)
[2023-09-08] MEDS: DESENEX/MITRAZOL/ZEASORB 1 APPLIC TOPICAL ×2 (07:52→22:15)
[2023-09-08 08:04] VITALS: BP 142/65
[2023-09-08 08:25] LABS: Glucose - Point of Care 155 mg/dl (70-99)
[2023-09-08] MEDS: NOVOLOG FLEXPEN-MODERATE RESISTANCE 1 UNITS SC (09:03)
--- NOTE | 2023-09-08 10:30 | PTCARENOTE ---
pt aaox3. states headache. tylenol given. vac dressing in place. pt oob with two person assist to bsc. lg BM. heparin gtt running as ordered.
[2023-09-08 10:45] LABS: Hematocrit 32.6 % (37.0-47.0); Hemoglobin 10.3 g/dL (12.0-16.0); Mean Corp Hgb Conc. 31.6 g/dL (33.0-37.0); Mean Corpuscular Hgb 28.1 pg (27.0-31.0); Mean Corpuscular Volume 89.1 fL (81.0-99.0); Mean Platelet Volume 9.1 fL (7.4-10.4); Platelet Count 264 10^3/uL (130-400); Red Blood Cell Count 3.66 10^6/uL (4.20-5.40); Red Cell Dist. Width 16.3 % (11.5-14.5); White Blood Cell Count 7.4 10^3/uL (4.8-10.8)
[2023-09-08 11:12] LABS: Blood Urea Nitrogen 26 mg/dl (7-17); Calcium 9.4 mg/dl (8.4-10.2); Carbon Dioxide 28 mmol/L (22-30); Chloride 91 mmol/L (98-107); Estimated Creatinine Clearance 38 ml/min; Glucose 257 mg/dl (70-99); Magnesium 2.1 mg/dl (1.6-2.3); Potassium 4.6 mmol/L (3.5-5.1); Sodium 132 mmol/L (135-145); eGFR 40.47
--- NOTE | 2023-09-08 11:34 | W.PN.HOSP.TC ---
Addendum entered and electronically signed by Terri Jean MD 09/08/23 14:28:
# SANA
Addendum entered and electronically signed by Terri Jean MD 09/08/23 13:10:
# Bilateral Buttock Stage 2 Pressure Injury
Original Note:
Today's Communication/Plan
-
see A/P
Assessment / Plan
Assessment / Plan
Physical Exam
General: Obese
HEENT: NormoCephalic, Anicteric, Moist mucous membranes, PERRLA, [place] Conjunctivae and No Ptosis
Respiratory: Clear; No Wheezes, Rales or Rhonchi
Cardiac: S1/S2, Regular Rhythm and Peripheral Edema (Chronic bilateral lymphedema thighs to lower legs); No Murmur, Rub or Gallop
Breast: Deferred by me
GI: Soft, Non Tender, Non Distended, Normal Bowel Sounds and No Hepatosplenomegaly
Genito-urinary: Deferred by me
Musculoskeletal: No Clubbing, No Cyanosis, Edema, Left Lower Extremity (Chronic leg lymphedema) and Edema, Right Lower Extremity (Open medial aspect right calf hematoma with surrounding erythema currently with Benton wrap in place); No Edema, Left
Upper Extremity or Edema, Right Upper Extremity
Skin: OACe wrapped b/lo LE
Neuro: AO x 3, No Motor Deficits, Cranial Nerves Intact and No Sensory Deficits; No Slurred Speech, Facial Droop, Tremors or Sedated
A/P:
# Right calf hematoma with oozing open wound, with surrounding cellulitis
# s/p right calf hematoma evacuation/washout 08/08/2023 with drains and sutures removed prior to DC
s/p VAC placement, Vac exchanged 09/03 and 09/06, next VAC change Thursday, wound care
Cont cefazolin with plan to change to PO at the time of discharge
Appreciate ID, Vascular, Wound care
No further surgical plan, OK to restart [employer] Coumadin with heparin bridge
Dispo planning
# Hypokalemia
monitor and replete
# Hyponatremia
resolved
# Bilateral LE DVT 07/27/2022
# History of DVT / PE 2012
US noted to have bilateral femoral DVTs at [facility] (07/27)
on Coumadin [employer] with INR goal 2-3
Resume Coumadin, cont heparin bridge
# Hypokalemia
monitor and replete
# Persistent Atrial Fibrillation
# s/p MAZE MVR and TR repair and HARVINDER exclusion on 06/29.
Outpatient cardioversion planned, however anticoagulation has to be determined first per cardiology.
Continue amiodarone 200 mg daily
Continue labetalol, carvedilol and amiodarone.
Minimize/avoid use of QT prolonging agents as possible.
Patient's prosthetic lab technician is Dr. Fran Abbasi
Resume Coumadin, cont heparin bridge
# History of blood loss anemia from prior hematoma
Did require 6 units PRBCs on July admission
Monitor Hgb
# Hx Bilateral pleural effusion 2/2 CHF
S/p right thoracentesis 08/05/2023 with removal of 500 cc serosanguineous pleural fluid
S/p left thoracentesis 08/06/2023 with removal of 400 cc serosanguineous pleural fluid
# Staph epidermidis Bacteremia - ruled out as contaminant on recent admission
Coagulase-negative staph identified from culture 08/01,
KARL/TTE negative for endocarditis
# Chronic HFmrEF
resolved
cont PO lasix 80mg twice daily.
# Constipation hx
Bowel regimen as needed
# DM-II
Accu-Cheks with SSI
cont repaglinide
# LIZBETH on CPAP continued
# Morbid Obesity due to excess calories�BMI 43.4
Affects all aspects of care.
Encourage healthy diet and increased activity when able with goal of weight reduction.
# Urinary retention hx
Monitor urine output
DVT prophylaxis: Resume Coumadin, cont heparin bridge
Full code
DW CM
Anticipated Discharge: 24 - 48 hours
Subjective/Interval History
-
Date of Service: September 08, 2023
Objective Data
-
Labs:
Laboratory Results
09/08/23 09/08/23
03:28 10:32
WBC 7.4
Hgb 10.3 L
Hct 32.6 L
Plt Count 264
APTT 79.9 H 87.0 H
Sodium 132 L
Potassium 4.6 D
Chloride 91 L
Carbon Dioxide 28
BUN 26 H
Creatinine 1.4 H
Glucose 257 H
Calcium 9.4
Vital Signs:
Vital Signs
Temp Pulse Resp BP Pulse Ox
36.8 C 82 14 142/65 97
09/08/23 08:04 09/08/23 08:04 09/07/23 23:00 09/08/23 08:04 09/08/23 08:04
I&O
09/07/23 09/08/23 09/09/23
06:59 06:59 06:59
Intake Total 1200 / 1200 120 / 120
Balance 1200 / 1200 120 / 120
--- NOTE | 2023-09-08 11:44 | CM ---
Addendum entered by Brenna Duong 09/08/23 11:57:
Per Dr Jean - pending INR, currently on heparin bridge
Poss ready in 2 days
Denys at [facility] aware
Plan - transfer to [facility] when medically stable and auth obtained
Original Note:
Case Management following for d/c planning
Pt medically ready for discharge
[facility]ed by [facility] and [facility]
Pt prefers [facility]
Spoke with [facility] - can accept and will obtain auth
Plan - transfer to [facility] when auth obtained
[2023-09-08 12:11] LABS: Glucose - Point of Care 256 mg/dl (70-99)
--- NOTE | 2023-09-08 12:43 | PN.CDI ---
CDI
- -
CDI:
Physician Documentation Request
Admit Date: 09/01/23 16:27
Dear Doctor Ted,
Clinical Indicators:
Patient admitted with right calf hematoma oozing open wound with cellulitis; s/p Sharp excisional debridement of right posterior calf wound 09/01.
09/06 [facility] lean manufacturing leader: Bilateral Buttock Stage 2 Pressure Injury
Treatment: Silicone Border Foam Dressing, Air overlay mattress
Physician documentation of the type and location of wounds is required for compliant documentation. Based on the above clinical findings and your assessment, please provide the following in your progress note:
1. Location of the ulcer/wound, including laterality.
2. Type (etiology) of ulcer/wound:
- Pressure (decubitus) ulcer
- Other
3. If a pressure ulcer, please also include the stage* of the ulcer:
- Stage 1 - Skin intact, non-blanchable redness
- Stage 2 - Partial thickness loss of dermis, includes intact or open blister
- Stage 3 - Full thickness tissue not including bone, tendon or muscle
- Stage 4 - Full thickness tissue loss, including exposed bone, tendon or muscle
- Unstageable - Full thickness loss in which the base of the ulcer is covered by slough (yellow, salas, ramos, green or brown) and/or eschar (salas, brown or black) in the wound bed.
- Unable to determine
Use of terms such as suspected, likely, concern for, or probable (associated with a specific diagnosis that is being evaluated, monitored, or treated as if it exists) are acceptable and can be coded in the inpatient setting, when documented at the
time of discharge.
Thank you,
Katiuska Mosley RN BSN
CDI Specialist
available via tiger text
Please use your independent medical judgment in providing your response.
*Source: National Pressure Ulcer Advisory Panel (NPUAP)
[2023-09-08] MEDS: NOVOLOG FLEXPEN-MODERATE RESISTANCE 5 UNITS SC (12:54)
--- NOTE | 2023-09-08 13:50 | PN.CDI ---
CDI
- -
CDI:
Physician Documentation Request
Admit Date: 09/01/23 16:27
Dear Doctor Ted,
Clinical Indicators:
Patient admitted with right calf hematoma oozing open wound with cellulitis; s/p Sharp excisional debridement of right posterior calf wound 09/01.
Cr/GFR trend:
09/07/23 09/08/23
03:25 10:32
Creatinine 0.9 1.4 H
eGFR > 60.00 40.47
Please clarify which of the following accurately represents the patient's renal status:
SANA
Rise in creatinine only
Other, please specify
Criteria for SANA*
1 Increase in serum creatinine by > or = to 0.3 mg/dL (> or = to 26.5 micromol/L) within 48 hours, OR
2 Increase in serum creatinine to > or = to 1.5 times baseline, which is known or presumed to have occurred within 7 days, OR
3 Urine volume < 0.5 nL/kg/hour for six hours
Use of terms such as suspected, likely, concern for, or probable (associated with a specific diagnosis that is being evaluated, monitored, or treated as if it exists) are acceptable and can be coded in the inpatient setting, when documented at the
time of discharge.
Thank you,
Katiuska Mosley RN BSN
CDI Specialist
available via tiger text
Please use your independent medical judgment in providing your response.
*Source: Kidney Disease: Improving Global Outcomes (KDIGO) 2012
[2023-09-08 14:31] VITALS: BP 136/76; PULSE 89
--- NOTE | 2023-09-08 14:41 | W.PN.ID1 ---
Date of Service
Date of Service: September 08, 2023
Today's Communication
Continue abx.
Assessment / Plan
LLE wound infection
- s/p vac placement
Hx spontainous left calf bleed
HTN
A-fib
DM
Obesity
CHF
Hx DVT
Hx endometrial CA (s/p SX and XRT)
Recommendations:
Wound overall looks good. Little/no evidence of ongoing infection.
Transition to Keflex for an additional 5 days.
Continue vac Tx
Chief Complaint
-: Other (Right calf wound.)
Subjective / Review of Systems
Review of Systems: No Fever and No Chills
Vital Signs / Physical Exam
Vital Signs
Vital Signs
Temp Pulse Resp BP Pulse Ox
98.2 F 82 14 142/65 97
09/08/23 08:04 09/08/23 08:04 09/07/23 23:00 09/08/23 08:04 09/08/23 08:04
Physical Exam
Constitutional: No Acute Distress, Comfortable and Non-toxic
Cardiovascular: S1/S2; Negative S3/S4
Pulmonary: Non Labored
Extremities: Edema
Wound: Other (Right calf wound with VAC in place. Benton wrap covering. Wound care photographs reviewed.)
Neurological: Awake and Alert
Psychological: Calm
Objective Data
Lab Data
Lab Results
09/08/23 10:32
09/08/23 10:32
PT 24.6 Sec (11.4-14.6) H 09/03/23 10:12
PT Cancelled 09/03/23 10:12
INR 2.19 09/03/23 10:12
INR Cancelled 09/03/23 10:12
APTT 87.0 Sec (23.4-35.0) H 09/08/23 10:32
Estimated Creat Clear 38 ml/min 09/08/23 10:32
Total Bilirubin 0.4 mg/dl (0.2-1.3) 09/07/23 03:25
AST 23 U/L (14-36) 09/07/23 03:25
ALT < 10 U/L (0-35) 09/07/23 03:25
Alkaline Phosphatase 84 U/L (38-126) 09/07/23 03:25
Most recent labs reviewed.
Micro Results:
09/02/23 08:22 Wound Culture - Final
Leg - Right Klebsiella pneumoniae
Proteus mirabilis
Diptheroids
Gram Stain - Final
09/02/23 08:22 Anaerobic Culture - Final
Leg - Right NO ANAEROBES ISOLATED
09/01/23 13:33 Wound Culture - Final
Surgical Wound Klebsiella pneumoniae
Proteus mirabilis
Gram Stain - Final
09/02/23 20:30 MRSA Screen - Final
Nose No Methicillin Resistant Staphylococcus aureus isolated.
[2023-09-08 15:00] VITALS: BP 119/59
[2023-09-08] MEDS: KEFLEX 500 MG PO ×2 (16:17→22:14)
[2023-09-08 16:54] LABS: Glucose - Point of Care 137 mg/dl (70-99)
[2023-09-08] MEDS: NOVOLOG FLEXPEN-MODERATE RESISTANCE SC (17:43)
[2023-09-08] MEDS: COUMADIN 2 MG PO (17:56)
--- NOTE | 2023-09-08 22:04 | PTCARENOTE ---
Heparin gtt off at start of shift. Per RN report and MD note, pt to resume coumadin (had received evening dose) and continue heparin bridge with plan for daily PTT collection. Notified END MAKER Enedina Recio that heparin gtt was unhooked from patient.
PTT ordered. Phlebotomy with multiple attempts for lab draw. IV team at bedside to place midline and obtain labs from midline. END MAKER updated and will start heparin gtt at previous therapeutic rate of 9 mL/hr and will resume following heparin
protocol once PTT resulted.
[2023-09-08] MEDS: MELATONIN 3 MG PO (22:14)
[2023-09-08 22:33] LABS: Glucose - Point of Care 180 mg/dl (70-99)
[2023-09-08 22:38] LABS: APTT > 200 Sec (23.4-35.0)
[2023-09-08 23:06] VITALS: BP 119/56
[2023-09-08 23:52] LABS: APTT 33.2 Sec (23.4-35.0)
[2023-09-09] MEDS: HEPARIN 8100 UNITS IV (00:05)
--- NOTE | 2023-09-09 00:57 | W.PN.UPDATE ---
Update Note
Progress Note Update
RN reports that while doing rounds heparin gtt noted to be off and disconnected from pt. Per pt it had been off since about 4pm (found around 1930).
Unclear why Heparin gtt was off. All notes from physicians state 'continue heparin/coumadin bridge' and pt just received coumadin today.
Stat ptt drawn. Based on that will continue with protocol and bridging.
[2023-09-09 06:00] VITALS: BMI 38.9
[2023-09-09 07:00] VITALS: BP 146/69
[2023-09-09] MEDS: CLARITIN 10 MG PO (07:41)
[2023-09-09] MEDS: KEFLEX 500 MG PO ×2 (07:41→16:45)
[2023-09-09] MEDS: KLOR-CON 20 MEQ PO ×2 (07:42→16:46)
[2023-09-09] MEDS: PROTONIX 40 MG PO (07:42)
[2023-09-09] MEDS: MIRALAX 17 GRAMS PO (07:42)
[2023-09-09] MEDS: VITAMIN B-12 1000 MCG PO (07:42)
[2023-09-09] MEDS: METAMUCIL, KONSYL 1 PACKET PO (07:42)
[2023-09-09] MEDS: PACERONE 200 MG PO (07:45)
[2023-09-09] MEDS: NORVASC 7.5 MG PO (07:45)
[2023-09-09] MEDS: COREG 25 MG PO (07:47)
[2023-09-09] MEDS: DESENEX/MITRAZOL/ZEASORB 1 APPLIC TOPICAL (07:49)
[2023-09-09] MEDS: HYDROPHOR 1 APPLIC TOPICAL (07:49)
[2023-09-09 08:14] LABS: INR 2.26; PT 25.2 Sec (11.4-14.6)
[2023-09-09 08:15] LABS: Blood Urea Nitrogen 24 mg/dl (7-17); Calcium 8.9 mg/dl (8.4-10.2); Carbon Dioxide 31 mmol/L (22-30); Chloride 96 mmol/L (98-107); Estimated Creatinine Clearance 44 ml/min; Glucose 125 mg/dl (70-99); Magnesium 2.2 mg/dl (1.6-2.3); Potassium 4.3 mmol/L (3.5-5.1); Sodium 132 mmol/L (135-145)
[2023-09-09 08:25] LABS: Glucose - Point of Care 143 mg/dl (70-99)
[2023-09-09] MEDS: NOVOLOG FLEXPEN-MODERATE RESISTANCE SC ×2 (08:31→18:08)
[2023-09-09 08:53] LABS: APTT > 200 Sec (23.4-35.0)
[2023-09-09] MEDS: DILAUDID 2 MG PO (10:01)
--- NOTE | 2023-09-09 10:39 | W.PN.HOSP.TC ---
Addendum entered and electronically signed by Terri Jean MD 09/09/23 14:15:
total DC time 38 min
Original Note:
Today's Communication/Plan
-
see A/P
Assessment / Plan
Assessment / Plan
A/P:
# Right calf hematoma with oozing open wound, with surrounding cellulitis
# s/p right calf hematoma evacuation/washout 08/08/2023 with drains and sutures removed prior to DC
s/p VAC placement, Vac exchanged 09/03 and 09/06, next VAC change 09/08, cont local wound care
IV cefazolin to PO Keflex for an additional 5 days per ID
No further surgical plan, OK to restart [employer] Coumadin with heparin bridge
Appreciate ID, Vascular, Wound care
Dispo planning to SNF
# Hypokalemia
monitor and repleted
# Hyponatremia, mild
# Bilateral LE DVT 07/27/2022
# History of DVT / PE 2012
US noted to have bilateral femoral DVTs at [facility] (07/27)
on Coumadin [employer] with INR goal 2-3
Resumed Coumadin, off heparin bridge
Daily INR
# Hypokalemia
monitor and replete
# Persistent Atrial Fibrillation
# s/p MAZE MVR and TR repair and HARVINDER exclusion on 06/29.
Outpatient cardioversion planned, however anticoagulation has to be determined first per cardiology.
Continue amiodarone 200 mg daily
Continue labetalol, carvedilol and amiodarone.
Minimize/avoid use of QT prolonging agents as possible.
Patient's mail service coordinator is Dr. Fran Abbasi
Resumed Coumadin, off heparin bridge
# History of blood loss anemia from prior hematoma
Did require 6 units PRBCs on July admission
Monitor Hgb
# Hx Bilateral pleural effusion 2/2 CHF
S/p right thoracentesis 08/05/2023 with removal of 500 cc serosanguineous pleural fluid
S/p left thoracentesis 08/06/2023 with removal of 400 cc serosanguineous pleural fluid
# Staph epidermidis Bacteremia - ruled out as contaminant on recent admission
Coagulase-negative staph identified from culture 08/01,
KARL/TTE negative for endocarditis
# Chronic HFmrEF
resolved
cont PO lasix 80mg twice daily.
# Constipation hx
Bowel regimen as needed
# DM-II
Accu-Cheks with SSI
cont repaglinide
# LIZBETH on CPAP continued
# Morbid Obesity due to excess calories�BMI 43.4
Affects all aspects of care.
Encourage healthy diet and increased activity when able with goal of weight reduction.
# Urinary retention hx
Monitor urine output
DVT prophylaxis: Resumed Coumadin, off heparin bridge , daily INR
Full code
DW CM
Anticipated Discharge: Within 24 hours
Subjective/Interval History
-
Date of Service: September 09, 2023
Objective Data
-
Labs:
Laboratory Results
09/08/23 09/09/23 09/09/23
23:15 07:52 11:30
WBC Pending
Hgb Pending
Hct Pending
Plt Count Pending
PT 25.2 H
INR 2.26
APTT 33.2 > 200 H* Pending
Sodium 132 L
Potassium 4.3
Chloride 96 L
Carbon Dioxide 31 H
BUN 24 H
Creatinine 1.2 H
Glucose 125 H
Calcium 8.9
Vital Signs:
Vital Signs
Temp Pulse Resp BP Pulse Ox
36.6 C 76 17 146/69 98
09/09/23 07:00 09/09/23 07:47 09/09/23 07:00 09/09/23 07:47 09/09/23 07:00
I&O
09/08/23 09/09/23 09/10/23
06:59 06:59 06:59
Intake Total /
Balance
Review of Systems
-
History Source: Patient
All other systems: Reviewed and negative
Physical Exam
-
General: Well Developed, Well Nourished, No Apparent Distress and Comfortable
Respiratory: Clear to Auscultation and Non Labored Respirations; Negative Accessory Resp Muscle Use
Cardiac: Regular Rhythm and S1/S2
GI: Soft, Nontender and Nondistended
Skin: Warm and Other (R foot wound wound vac)
Neuro: Awake and Alert
Psych: Calm and Intact Judgement/Insight
Data Reviewed
-
Labs: Labs Reviewed by me
--- NOTE | 2023-09-09 11:00 | CM ---
Addendum entered by Brenna Duong 09/09/23 13:23:
Transport for 3PM
Facility and pts sister Charlotte made aware
Addendum entered by Brenna Duong 09/09/23 12:58:
Transfer to [facility]
R - [phone]
F - [phone]
Addendum entered by Brenna Duong 09/09/23 12:26:
Received call from Denys from [facility] - auth obtained
auth# [id number]
start 09/08 NRD 09/13
DR Jean notified
Original Note:
Case management following for d/c planning
Dr Jean reporting pt for d/c
Spoke with Karen at [facility] - can accept today and will get auth
Updates sent in [facility] for OT/PT/Wound care
Plan - transfer to [facility] when auth obtained
--- NOTE | 2023-09-09 11:01 | W.PN.ID1 ---
Date of Service
Date of Service: September 09, 2023
Today's Communication
Continue abx.
Assessment / Plan
LLE wound infection
- s/p vac placement
Hx spontaneous left calf bleed
HTN
A-fib
DM
Obesity
CHF
Hx DVT
Hx endometrial CA (s/p SX and XRT)
Recommendations:
Wound overall looks good. Little/no evidence of ongoing infection.
Continue Keflex for an additional 4 days.
Continue VAC tx
����������������������������������������������������������
Chief Complaint
-: Other (Right calf wound.)
Subjective / Review of Systems
Review of Systems: No Fever and No Chills
Vital Signs / Physical Exam
Vital Signs
Vital Signs
Temp Pulse Resp BP Pulse Ox
97.9 F 76 17 146/69 98
09/09/23 07:00 09/09/23 07:47 09/09/23 07:00 09/09/23 07:47 09/09/23 07:00
Physical Exam
Constitutional: No Acute Distress, Comfortable and Non-toxic
Pulmonary: Non Labored; Negative Wheezes
Gastrointestinal: Non Distended
Extremities: Edema
Wound: Other (Right calf wound with VAC in place. Benton wrap covering. Wound care photographs reviewed.)
Neurological: Awake and Alert
Psychological: Calm
Objective Data
Lab Data
Lab Results
09/09/23 07:52
PT 25.2 Sec (11.4-14.6) H 09/09/23 07:52
INR 2.26 09/09/23 07:52
APTT > 200 Sec (23.4-35.0) H* 09/09/23 07:52
Estimated Creat Clear 44 ml/min 09/09/23 07:52
Total Bilirubin 0.4 mg/dl (0.2-1.3) 09/07/23 03:25
AST 23 U/L (14-36) 09/07/23 03:25
ALT < 10 U/L (0-35) 09/07/23 03:25
Alkaline Phosphatase 84 U/L (38-126) 09/07/23 03:25
Most recent labs reviewed.
Micro Results:
09/02/23 08:22 Wound Culture - Final
Leg - Right Klebsiella pneumoniae
Proteus mirabilis
Diptheroids
Gram Stain - Final
09/02/23 08:22 Anaerobic Culture - Final
Leg - Right NO ANAEROBES ISOLATED
09/01/23 13:33 Wound Culture - Final
Surgical Wound Klebsiella pneumoniae
Proteus mirabilis
Gram Stain - Final
09/02/23 20:30 MRSA Screen - Final
Nose No Methicillin Resistant Staphylococcus aureus isolated.
--- NOTE | 2023-09-09 11:45 | WOUNDNOTE ---
SACRAL/BUTTOCKS (shadow present on L outer buttocks)
[2023-09-09 11:57] LABS: Glucose - Point of Care 181 mg/dl (70-99)
[2023-09-09 12:10] LABS: Hematocrit 28.5 % (37.0-47.0); Hemoglobin 9.3 g/dL (12.0-16.0); Mean Corp Hgb Conc. 32.6 g/dL (33.0-37.0); Mean Corpuscular Hgb 28.2 pg (27.0-31.0); Mean Corpuscular Volume 86.4 fL (81.0-99.0); Mean Platelet Volume 8.7 fL (7.4-10.4); Platelet Count 188 10^3/uL (130-400); Red Cell Dist. Width 16.4 % (11.5-14.5); White Blood Cell Count 4.8 10^3/uL (4.8-10.8)
--- NOTE | 2023-09-09 12:34 | WOUNDNOTE ---
[facility] RN Note: Patient incontinent of urine. Deedee care given. Buttocks silicone border foam dressings changed. Buttocks skin slightly improved. Patient's RLE wound vac dressings changed and saline moistened Kerlix packing applied for probable transfer
today (confirmed with THERESA Duong). Skin on heels blanchable mild red and intact. Air overlay in place. R heel off bed with air chair cushion. L heel off bed with pillow. Bilateral knee high Benton wraps reapplied. [place] texted Claudia
Rachid Walker who confirmed can leave saline moistened gauze RLE today and nursing can change saline packing tomorrow for discharge in case discharge is delayed till tomorrow. SNF rehab will apply their vac equipment after discharge. Updated RN
Vamsi via tiger text.
[2023-09-09] MEDS: NOVOLOG FLEXPEN-MODERATE RESISTANCE 1 UNITS SC (13:10)
--- NOTE | 2023-09-09 14:00 | W.DCSUMMARY ---
Discharge Summary
Discharge Data
Date of Admission: 09/01/23
Date of Discharge: 09/09/23
-
Pending Results: No
Hospital Course
Principal Diagnosis:
Right calf hematoma with oozing open wound, with surrounding cellulitis
Chronic Diagnoses:�
Bilateral lower extremity deep vein thrombosis (DVT) 07/27/2022
History of pulmonary embolism and DVT 2012
Persistent Atrial Fibrillation
s/p MAZE MVR and TR repair
Chronic heart failure with systolic and diastolic ejection fraction
Aup-owyryhy-njuchhfir diabetes
Obstructive sleep apnea on CPAP
Morbid Obesity due to excess calories, BMI 38
Consultations:�
Vascular surgery
Infectious disease
Procedures:�
RLE wound debridement and washout, Wound VAC placement, on 09/02/2023
Clinical course:�
This is a 68-year-old female, with past medical history as stated above, who presented with right calf chronic hematoma with open oozing wound.
Problem 1:
Right calf hematoma with oozing open wound, with surrounding cellulitis.
She underwent Right calf hematoma evacuation and washout this admission on 09/02/2023 with wound VAC placement.
She was also covered with IV Ancef while in the hospital.
The patient can continue with wound VAC exchange at SNF and follow-up with vascular outpatient.
She was discharged with Keflex for 5 more days per ID recommendation.
As for the rest of her medical problems, they were stable during her hospital stay.
Discharge Plan
-
Patient Disposition: Half-Way/SNF
Discharge Diagnosis/Procedures: Right calf hematoma with oozing open wound with surrounding cellulitis; Right leg peripheral artery disease; Bilateral lower leg deep vein thrombosis
Condition: Fair
Diet: Diabetic, Carb Controlled
Activity: As tolerated
Driving Restrictions: Not until seen by your Dr
Blood Work: INR in 3 days,
BMP in 1 week with your PCP
Wound Care: Wound Care Instructions
R lateral and medial calf wounds-wound vac therapy, black foam (can use adaptic with black foam to lateral calf wound prn pain), Change every 48 - 72 hours (i. e. Evtrlgo-Giximylumb-Oapezab) and prn if unable to obtain a seal. Low Intensity,
Continuous at 125 mmHg. Upon discharge or transfer to another facility, remove VAC foam and apply NS moistened gauze dressing unless home VAC unit available.
Sacral/buttocks-clean with saline or soap and water, silicone border foam, change q 3 days and prn loosened dressing.
LLE-pad medial ankle dry scab with ABD pad under Benton wrap; Aquaphor or Vaseline to dry skin LLE daily.
Miconazole powder to abdominal folds, affected areas bid.
Bilateral knee high Benton wraps as tolerated; rewrap daily.
Miconazole powder to abdominal folds, affected areas bid.
Elevate heels off bed with pillows; pillow with air chair cushion on top RLE;avoid pressure to R posterior calf
Pressure redistributing chair cushion (i.e. Air or Roho).
Air mattress.
Follow up with vascular Dr. Pena.
Follow up with wound day care aide or Wound care center .
Activity Restrictions/Additional Instructions:
Follow up with vascular outpatient.
Referrals:
Chuy Zabala MD [Family Provider] -
Melissa Reynoso CRNP [Specified Professional Personl] - 09/25/23 11:15 am (Vascular follow up)
Additional Discharge Medication Instructions: Continue Keflex for 5 more days
Restart coumadin 09/09 pm
Prescriptions:
New
cephalexin 500 mg Capsule
500 mg PO TID 5 Days Qty: 15 0RF
Continued
melatonin 3 mg Tablet
3 mg PO HS
loratadine 10 mg Tablet
10 mg PO DAILY
pantoprazole 40 mg Tablet,Delayed Release (Dr/Ec)
40 mg PO DAILY
cyanocobalamin (vitamin B-12) 1,000 mcg Tablet
1,000 mcg PO DAILY
ascorbic acid (vitamin C) [Vitamin C] 500 mg Tablet
500 mg PO DAILY
amlodipine 5 mg Tablet
7.5 mg PO DAILY Qty: 30 0RF
amiodarone 200 mg tablet
200 mg PO DAILY Qty: 14 0RF
carvedilol 25 mg Tablet
25 mg PO BID
polyethylene glycol 3350 [Miralax] 17 gram Powder In Packet
17 g PO DAILY
repaglinide 1 mg Tablet
1 mg PO AC
acetaminophen 325 mg Capsule
650 mg PO Q6H MDD 3000 mg PRN (Reason: mild pain / fever)
furosemide 80 mg Tablet
80 mg PO BID Qty: 30 0RF
psyllium Packet
1 packet PO DAILY
therapeutic multivitamin Tablet
1 tab PO DAILY
magnesium hydroxide [Milk of Magnesia] 400 mg/5 mL Suspension
30 ml PO DAILYPRN PRN (Reason: constipation)
Fleet Enema 19-7 gram/118 mL Enema
118 ml GA [id number] PRN (Reason: constipation, no bm 72 hrs)
bisacodyl 5 mg Tablet,Delayed Release (Dr/Ec)
10 mg PO HSPRN PRN (Reason: constipation)
fluticasone propionate 50 mcg/actuation Osteen,Suspension
2 spray INTRANASAL DAILY
hydrocortisone 1 % ointment
1 applic topical BID
potassium chloride 20 mEq packet
20 meq PO TID
warfarin 2 mg Tablet
2 mg PO QPM
Discontinued
cephalexin 500 mg Capsule
500 mg PO Q8H
Patient Comments:
09/01/23: starting 08/28/23, take 1 capsule every 8 hours for 7 days, ending 09/04/23
Discharge Orders:
Discharge Patient (As Directed); Ordered 09/09/23
Ordered By: Terri Jean
Discharge Date and Time
Print Language: ARABIC
--- NOTE | 2023-09-09 14:43 | WOUNDNOTE ---
WOC RN Note: t/c Construction Skills Teacher Kelly who confirmed patient is leaving today. Notified [facility] via [employer] of hospital rental vac Ulta pump stop bill date/pump pickle solution maker (work order # [id number]).
[2023-09-09 15:21] VITALS: BP 137/70
[2023-09-09 16:53] LABS: Glucose - Point of Care 146 mg/dl (70-99)
== END 2023-09-09 18:41 | DRG 571 ==
LOC: 3 WEST ACU 16:27
PROVIDERS: Clinical Nurse Specialist Family Health; Nurse Practitioner; Nurse Practitioner Family; Student in an Organized Health Care Education/Training Program; Surgery Vascular Surgery; ADMITTING PHYSICIAN Internal Medicine; ATTENDING PHYSICIAN Internal Medicine; CONSULT PHYSICIAN Internal Medicine Infectious Disease; EMERGENCY PHYSICIAN Emergency Medicine; FAMILY PHYSICIAN Internal Medicine
PROC: 5A09357 Assistance with Respiratory Ventilation, Less than 24 Consecutive Hours, Continuous Positive Airway Pressure (ICD-10-PCS; 2023-09-01)
PROC: 0JBN0ZZ Excision of Right Lower Leg Subcutaneous Tissue and Fascia, Open Approach (ICD-10-PCS; 2023-09-02)
DX: S81.801A Unspecified open wound, right lower leg, initial encounter (principal); E87.1 Hypo-osmolality and hyponatremia; T81.49XA Infection following a procedure, other surgical site, initial encounter; I48.19 Other persistent atrial fibrillation; I82.513 Chronic embolism and thrombosis of femoral vein, bilateral; I50.22 Chronic systolic (congestive) heart failure; L03.115 Cellulitis of right lower limb; I96 Gangrene, not elsewhere classified; N17.9 Acute kidney failure, unspecified; Z68.41 Body mass index [BMI] 40.0-44.9, adult; I11.0 Hypertensive heart disease with heart failure; E66.01 Morbid (severe) obesity due to excess calories; Z95.2 Presence of prosthetic heart valve; E11.51 Type 2 diabetes mellitus with diabetic peripheral angiopathy without gangrene; L89.312 Pressure ulcer of right buttock, stage 2; L89.322 Pressure ulcer of left buttock, stage 2; B96.1 Klebsiella pneumoniae [K. pneumoniae] as the cause of diseases classified elsewhere; I89.0 Lymphedema, not elsewhere classified; G47.33 Obstructive sleep apnea (adult) (pediatric); R33.9 Retention of urine, unspecified; K59.00 Constipation, unspecified; E87.6 Hypokalemia; Z98.890 Other specified postprocedural states; Z79.01 Long term (current) use of anticoagulants; Z86.711 Personal history of pulmonary embolism; Z85.42 Personal history of malignant neoplasm of other parts of uterus; Z87.01 Personal history of pneumonia (recurrent)
CPT/HCPCS: 11042; 11045; 80048; 80053; 82962; 83036; 83735; 85025; 85027; 85610; 85730; 86850; 86900; 86901; 87070; 87075; 87077; 87186; 87205; 93005; 96374; 97116; 97163; 97167; 97530; 97535; 97605; 97608; 99285